=== PATIENT | male | born 1945 | race Caucasian/White ===

== ENCOUNTER 2016-08-21 08:33 | Inpatient (IN) | payer OTHER, BC ==
[2016-08-21] MEDS ORDERED: ALBUTEROL SO4 2.5/IPRATROPIUM 0.5 INH SOL 3 ML VIAL.NEB. NEB ONE ×2 (08:44→08:48)
[2016-08-21] MEDS ORDERED: ONDANSETRON 4 MG TABLET PO ONE (08:44)
[2016-08-21] MEDS ORDERED: ONDANSETRON *ODT* 4 MG TABLET ONE (08:48)
--- NOTE | 2016-08-21 08:54 | PDOC ---
History of Present Illness - General Chief Complaint: Shortness of Breath Stated Complaint: SOB,NAUSEA Time Seen by Provider: 08/21/16 08:39 History Source: Patient Exam Limitations: No Limitations - History of Present Illness Initial Comments: 08/21/16 08:49 71 y/o male with nausea for 3 days, no vomiting or diarrhea. Denies back or abdominal pain. Able to eat, but feels like he cannot burp. Always SOB. Denies chest pain, arm pain or neck pain. No fever or chills. No traveling or sick contact. Severity: mild Associated Symptoms: reports: nausea/vomiting, shortness of breath. denies: chest pain, cough, fever/chills, loss of appetite Past History - Past Medical History Allergies/Adverse Reactions: Allergies Allergy/AdvReac Type Severity Reaction Status Date / Time No Known Allergies Allergy Verified 03/06/16 13:33 Home Medications: Ambulatory Orders Clopidogrel Bisulfate [Plavix -] 75 mg PO DAILY 01/18/13 Aspirin [ASA -] 81 mg PO DAILY 04/29/14 Escitalopram Oxalate [Lexapro -] 40 mg PO DAILY 04/29/14 Lisinopril [Prinivil] 10 mg PO DAILY 04/29/14 Alprazolam [Xanax] 1 mg PO BID 11/19/14 Bupropion HCl [Wellbutrin Xl -] 300 mg PO DAILY 06/14/15 Fenofibrate Nanocrystallized [Tricor] 145 mg PO DAILY 06/14/15 Risperidone 2 mg PO DAILY 11/24/15 Zolpidem Tartrate [Ambien] 10 mg PO HS 11/25/15 Acetaminophen [Tylenol .Regular Strength -] 650 mg PO Q4H PRN #0 tablet Anemia: No Asthma: No Cardiac Disorders: Yes (cardiac [id number], history of OH 2005) CVA: No COPD: Yes CHF: No Dementia: (FORGETFUL) Diabetes: No GI Disorders: Yes (HEARTBURN) Disorders: No HTN: Yes Hypercholesterolemia: Yes Liver Disease: No Psychiatric Problems: Yes (ANXIETY DEPRESSION) Seizures: No Thyroid Disease: No - Surgical History Abdominal Surgery: No Appendectomy: No Cardiac Surgery: Yes (cardiac stent 2005) Cholecystectomy: No Lung Surgery: No Neurologic Surgery: No Orthopedic Surgery: No - Psycho/Social/Smoking Cessation Hx Anxiety: No Suicidal Ideation: No Smoking Status: No Smoking History: Never smoked Have you smoked in the past 12 months: No Number of Cigarettes Smoked Daily: 0 If you are a former smoker, when did you quit?: 2005 Information on smoking cessation initiated: No Hx Alcohol Use: No Drug/Substance Use Hx: No Substance Use Type: None Hx Substance Use Treatment: Yes Review of Systems - Review of Systems Able to Perform ROS?: Yes Is the patient limited [place] proficient: No Constitutional: No: Chills, Diaphoresis, Fever Respiratory: Yes: Shortness of Breath. No: Cough, Orthopnea Cardiac (ROS): No: Chest Pain ABD/GI: Yes: Nausea. No: Diarrhea, Vomiting Musculoskeletal: No: Joint Pain Integumentary: No: Bruising Neurological: No: Headache All Other Systems: Reviewed and Negative *Physical Exam - Vital Signs Last Vital Signs Temp Pulse Resp BP Pulse Ox 97.6 F 63 20 165/77 97 08/21/16 08:33 08/21/16 08:33 08/21/16 08:33 08/21/16 08:33 08/21/16 08:33 - Physical Exam General Appearance: Yes: Nourished, Appropriately Dressed. No: Apparent Distress HEENT: positive: EOMI, CHARAN, Normal ENT Inspection, Other (tardive dyskensia) Neck: positive: Trachea midline, Rigid, Supple Respiratory/Chest: negative: Chest Tender, Lungs Clear (decreaed BS b/l no wheezing), Normal Breath Sounds, Respiratory Distress Cardiovascular: positive: Regular Rhythm, Regular Rate, S1, S2 Vascular Pulses: Femoral (R): 4+, Femoral (L): 4+, Carotid (R): 4+, Carotid (L) : 4+, Dorsalis-Pedis (R): 4+, Doralis-Pedis (L): 4+ Gastrointestinal/Abdominal: positive: Normal Bowel Sounds, Flat, Soft, Other (+ BS, soft non tender no RLQ or LLQ tenderness no RUQ or LUQ tenderness, no epigatric tenderness). negative: Tender, Organomegaly, Pulsatile Mass, Hepatomegaly, Spleenomegaly Lymphatic: negative: Adenopathy, Tenderness, Other Musculoskeletal: positive: Normal Inspection. negative: CVA Tenderness Extremity: positive: Normal Capillary Refill, Normal Inspection, Normal Range of Motion Integumentary: positive: Normal Color, Dry, Warm Neurologic: positive: online health and fitness coach II-XII NML intact, Fully Oriented, Alert, Normal Mood/ Affect, Normal Response, Motor Strength 5/5 Heart Score/ECG Review - ECG Intrepretation Rhythm: Regular Rhythm Comment:: 08/21/16 08:57 sinus bradycardia 58 - [place]: Left [place] Deviation ED Treatment Course - LABORATORY CBC & Chemistry Diagram: 08/21/16 09:15 08/21/16 09:15 - RADIOLOGY Radiology Studies Ordered: Category Date Time Status CHEST PA & LAT [RAD] Stat Radiology 08/21/16 08:44 Ordered 08/21/16 10:06 Pt with a sodium of 120, will need to be admitted Pt is in agreement with plan. CXR NAD, tortuous aorta 08/21/16 10:21 Spoke with Bettye, will admit to Dr. Vinson Pt in agreement with plan *DC/Admit/Observation/Transfer Diagnosis at time of Disposition: Hyponatremia - Discharge Dispostion Admit: Yes
[2016-08-21 09:29] LABS: BASOPHIL 0.4 % (0-2.0); EOSINOPHIL 1.2 % (0-4.5); MCHC 34.5 g/dl (32.0-35.9); MEAN CELL VOLUME 92.8 fl (80-96); NEUTROPHILS 81.1 % (42.8-82.8); PLATELET COUNT 423 K/MM3 (134-434); RDW 12.2 % (11.9-15.9); WHITE BLOOD COUNT 8.6 K/mm3 (4.0-10.0)
[2016-08-21 09:54] LABS: ALBUMIN 4.1 g/dl (3.5-5.0); ALK PHOS 72 U/L (32-92); ANION GAP 7 (8-16); CO2 23 mmol/L (22-28); CREATININE 1.1 mg/dl (0.6-1.3); GLUCOSE,RANDOM 107 mg/dl (74-106); SGOT/AST 42 U/L (10-42); SGPT/ALT 23 U/L (10-40); TOT PROT 6.7 g/dl (6.4-8.3)
[2016-08-21 10:13] LABS: CPK(DFH) 1645 IU/L (38-174); TROPONIN I (DFP) < 0.03 ng/ml (0.03-0.50)
[2016-08-21] MEDS ORDERED: SODIUM CHLORIDE 1,000 ML IV SCH ×2 (10:15→10:30)
[2016-08-21 10:17] LABS: CK MB 14.1 ng/ml (0.3-4.0)
[2016-08-21] MEDS ORDERED: ACETAMINOPHEN 325 MG TABLET (FP) PO PRN (10:26)
--- NOTE | 2016-08-21 10:26 | HP ---
CHIEF COMPLAINT: Nausea PCP: Dr. Hogan HISTORY OF PRESENT ILLNESS: This is a 71 year old male with a history of HTN, CAD s/p stent x 1 approx 10 yrs ago, and anxiety/depression who presented to the ED today complaining of three days of nausea and "dry heaving" without vomiting or diarrhea. He denies fevers/chills. He has had POWELL for several years and this is unchanged. He denies chest pain. He does report that his PO intake has been very poor ("a little water" every day, no food). He is not on any diuretics and none of his medications are new to him. He has been admitted for hyponatremia in the past in similar clinical context and improved with hydration. 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 Smoking: Never smoker Alcohol: 1 can beer/weekly (although prior notes suggest EtOH abuse?) Drugs: None Family History: Patient is not able to recall any significant medical problems Allergies No Known Allergies Allergy (Verified 03/06/16 13:33) HOME MEDICATIONS: Home Medications Medication Instructions Recorded Clopidogrel Bisulfate [Plavix -] 75 mg PO DAILY 01/18/13 Aspirin [ASA -] 81 mg PO DAILY 04/29/14 Escitalopram Oxalate [Lexapro -] 40 mg PO DAILY 04/29/14 Lisinopril [Prinivil] 10 mg PO DAILY 04/29/14 Alprazolam [Xanax] 1 mg PO BID 11/19/14 Bupropion HCl [Wellbutrin Xl -] 300 mg PO DAILY 06/14/15 Fenofibrate Nanocrystallized 145 mg PO DAILY 06/14/15 [Tricor] Risperidone 2 mg PO DAILY 11/24/15 Zolpidem Tartrate [Ambien] 10 mg PO HS 11/25/15 Acetaminophen [Tylenol .Regular 650 mg PO Q4H PRN #0 tablet 03/07/16 Strength -] REVIEW OF SYSTEMS CONSTITUTIONAL: Generalized weakness, malaise, loss of appetite Absent: fever, chills, diaphoresis, weight change HEENT: Absent: rhinorrhea, nasal congestion, throat pain, throat swelling, difficulty swallowing, mouth swelling, ear pain, eye pain, visual changes CARDIOVASCULAR: Absent: chest pain, syncope, palpitations, irregular heart rate, lightheadedness , peripheral edema RESPIRATORY: POWELL, stable x several years Absent: cough, shortness of breath, orthopnea, wheezing, stridor, hemoptysis GASTROINTESTINAL: Nausea Absent: abdominal pain, abdominal distension, vomiting, diarrhea, constipation, melena, hematochezia GENITOURINARY: Absent: dysuria, frequency, urgency, hesitancy, hematuria, flank pain, genital pain MUSCULOSKELETAL: Absent: myalgia, arthralgia, joint swelling, back pain, neck pain SKIN: Absent: rash, itching, pallor HEMATOLOGIC/IMMUNOLOGIC: Absent: easy bleeding, easy bruising, lymphadenopathy, frequent infections ENDOCRINE: Absent: unexplained weight gain, unexplained weight loss, heat intolerance, cold intolerance NEUROLOGIC: Absent: headache, focal weakness or paresthesias, dizziness, unsteady gait, seizure, mental status changes, bladder or bowel incontinence PSYCHIATRIC: Anxiety/depression Absent: suicidal or homicidal ideation, hallucinations. PHYSICAL EXAMINATION Vital Signs - 24 hr 08/21/16 08:33 Temperature 97.6 F Pulse Rate 63 Respiratory 20 Rate Blood Pressure 165/77 O2 Sat by Pulse 97 Oximetry (%) GENERAL: Awake, alert, and fully oriented, in no acute distress. HEAD: Normal with no signs of trauma. EYES: Pupils equal, round and reactive to light, extraocular movements intact, sclera anicteric, conjunctiva clear. No lid lag. EARS, NOSE, THROAT: Ears normal, nares patent, oropharynx clear without exudates. Moist mucous membranes. NECK: Normal range of motion, supple without lymphadenopathy, JVD, or masses. LUNGS: Breath sounds equal, clear to auscultation bilaterally. No wheezes, and no crackles. No accessory muscle use. HEART: Regular rate and rhythm, normal S1 and S2 without murmur, rub or gallop. ABDOMEN: Soft, nontender, not distended, normoactive bowel sounds, no guarding, no rebound, no masses. No hepatomegaly or splenomegaly. MUSCULOSKELETAL: Normal range of motion at all joints. No bony deformities or tenderness. No CVA tenderness. UPPER EXTREMITIES: 2+ pulses, warm, well-perfused. No cyanosis. No clubbing. No peripheral edema. LOWER EXTREMITIES: 2+ pulses, warm, well-perfused. No calf tenderness. No peripheral edema. NEUROLOGICAL: Tardive dyskinesia. Cranial nerves II-XII intact. Normal speech. Normal gait. PSYCHIATRIC: Cooperative. Good eye contact. Appropriate mood and affect. SKIN: Warm, dry, normal turgor, no rashes or lesions noted, normal capillary refill. Laboratory Results - last 24 hr 08/21/16 08/21/16 08/21/16 09:15 09:15 09:15 WBC 8.6 D RBC 4.17 Hgb 13.3 Hct 38.7 MCV 92.8 MCHC 34.5 RDW 12.2 Plt Count 423 D MPV 7.0 L D Neutrophils % 81.1 Lymphocytes % 9.8 D Monocytes % 7.5 Eosinophils % 1.2 Basophils % 0.4 Sodium 120 L* D Potassium 4.7 Chloride 90 L D Carbon Dioxide 23 Anion Gap 7 L BUN 14 D Creatinine 1.1 Creat Clearance w eGFR > 60 Random Glucose 107 H Calcium 9.0 AST 42 D ALT 23 D Alkaline Phosphatase 72 Creatine Kinase 1645 H D CK-MB (CK-2) Cancelled 14.1 H CK-MB (CK-2) Rel Index 0.9 Troponin I < 0.03 L Total Protein 6.7 Albumin 4.1 ASSESSMENT/PLAN: 71 year old male with hyponatremia. Problem List - Problem (1) Hyponatremia Assessment/Plan: -Suspect hypovolemic secondary to poor PO intake -Send serum osmolality, urine sodium -Send BNP, TSH -NS 83 mLs/hr, repeat BMP 14:00 -Renal consultation requested Code(s): E87.1 - HYPO-OSMOLALITY AND HYPONATREMIA (2) Hypertension Assessment/Plan: -BPs slightly above goal -Continue home Lisinopril, monitor Code(s): I10 - ESSENTIAL (PRIMARY) HYPERTENSION (3) CAD (coronary artery disease) Assessment/Plan: -No active issues -Continue ASA Code(s): I25.10 - ATHSCL HEART DISEASE OF [place] CORONARY ARTERY W/O ANG PCTRS (4) Elevated CPK Assessment/Plan: -Unclear etiology -Hold Tricor for now -Hydration -Follow Code(s): R74.8 - ABNORMAL LEVELS OF OTHER SERUM ENZYMES (5) Nausea Assessment/Plan: -With abdominal discomfort -Zofran prn -Pepcid bid -Pepto-Bismol x 1 dose now Code(s): R11.0 - NAUSEA (6) DVT prophylaxis Assessment/Plan: -Ambulation -Lovenox ADDENDUM 16:15: Repeat sodium 118. Discussed with Dr. Murphy; continue saline for now. Will send 20:00 BMP, night team to followup. Code(s): SOU9367 - Visit type - Emergency Visit Emergency Visit: Yes ED Registration Date: 08/21/16 Care time: The patient presented to the Emergency Department on the above date and was hospitalized for further evaluation of their emergent condition. - New Patient This patient is new to me today: Yes Date on this admission: 08/21/16 - Critical Care Critical Care patient: No
[2016-08-21 10:40] LABS: BILIRUBIN,TOTAL 0.6 mg/dl (0.2-1.0)
[2016-08-21] MEDS: ONDANSETRON 4 MG/2 ML VIAL IVPB PRN ×2 (10:56→20:41)
[2016-08-21 12:00] LABS: URINE APPEARANCE Clear; URINE BILIRUBIN Negative (NEGATIVE); URINE GLUCOSE (UA) Negative (NEGATIVE); URINE KETONE Negative (NEGATIVE); URINE LEUK ESTERASE Negative (NEGATIVE); URINE NITRITE Negative (NEGATIVE); URINE PROTEIN Negative (NEGATIVE); URINE UROBILINOGEN 0.2 E.U/dl (0.2-1.0)
[2016-08-21 12:02] LABS: URINE BLOOD TRACE (NEGATIVE); URINE COLOR YELLOW; URINE RBC 0-3 /hpf (0-3); URINE WBC 0-3 (3-5)
[2016-08-21 12:03] LABS: URINE BACTERIA FEW /hpf (NEGATIVE)
[2016-08-21 12:13] LABS: THYROID STIMULATING HORMONE 1.36 uIU/ml (0.358-3.74)
--- NOTE | 2016-08-21 12:23 | CONSULT ---
Consult - text type - Consultation Consultation Note: Renal Consult for Hyponatremia 71 year old Gentleman with hx of Depression/Anxiety, CAD, Hyponatremia presented with Nausea and Na of 120. Home Medications Medication Instructions Recorded Clopidogrel Bisulfate [Plavix -] 75 mg PO DAILY 01/18/13 Aspirin [ASA -] 81 mg PO DAILY 04/29/14 Escitalopram Oxalate [Lexapro -] 40 mg PO DAILY 04/29/14 Lisinopril [Prinivil] 10 mg PO DAILY 04/29/14 Alprazolam [Xanax] 1 mg PO BID 11/19/14 Bupropion HCl [Wellbutrin Xl -] 300 mg PO DAILY 06/14/15 Fenofibrate Nanocrystallized 145 mg PO DAILY 06/14/15 [Tricor] Risperidone 2 mg PO DAILY 11/24/15 Zolpidem Tartrate [Ambien] 10 mg PO HS 11/25/15 Acetaminophen [Tylenol .Regular 650 mg PO Q4H PRN #0 tablet 03/07/16 Strength -] Vital Signs Temperature 97.6 F 08/21/16 08:33 Pulse Rate 56 L 08/21/16 10:30 Respiratory Rate 23 08/21/16 10:30 Blood Pressure 144/103 08/21/16 10:30 O2 Sat by Pulse Oximetry (%) 93 L 08/21/16 10:30 Intake & Output 08/18/16 08/19/16 08/20/16 08/21/16 23:59 23:59 23:59 23:59 Weight 205 lb CBC, BMP 08/21/16 09:15 08/21/16 09:15 Current Medications Acetaminophen (Tylenol -) 650 mg PO Q4H PRN PRN Reason: FEVER OR PAIN Aspirin (Asa -) 81 mg PO DAILY [facility] Bupropion HCl (Wellbutrin Xl -) 300 mg PO DAILY [facility] Clopidogrel Bisulfate (Plavix -) 75 mg PO DAILY [facility] Docusate Sodium (Colace -) 100 mg PO TID [facility] Enoxaparin Sodium (Lovenox -) 40 mg SQ DAILY [facility] Escitalopram Oxalate (Lexapro -) 40 mg PO DAILY [facility] Sodium Chloride (Normal Saline -) 1,000 mls @ 125 mls/hr IV ASDIR FIDEL Last Admin: 08/21/16 10:15 Dose: 125 mls/hr Sodium Chloride (Normal Saline -) 1,000 mls @ 83 mls/hr IV ASDIR FIDEL Last Admin: 08/21/16 10:55 Dose: 83 mls/hr Lisinopril (Prinivil) 10 mg PO DAILY FIDEL Non-Formulary Medication (Alprazolam [Xanax]) 1 mg PO BID FIDEL Non-Formulary Medication (Zolpidem Tartrate [Ambien]) 10 mg PO HS FIDEL Ondansetron HCl (Zofran Injection) 4 mg IVPB Q6H PRN PRN Reason: NAUSEA Last Admin: 08/21/16 10:56 Dose: 4 mg Risperidone (Risperdal -) 2 mg PO DAILY FIDEL A/P #Acute Hyponatremia Etiology appears to be hypovolemic in setting of poor intake and Nausea CHeck Urine Na, OSM, serum OSM, Uric acid, Cortisol, TSH agree with isotonic saline for now Trend Na Q6h Goal of correction ~10 in 24 hours Will follow Thank you Full consult to follow Pavan Murphy DO
[2016-08-21] MEDS ORDERED: risperiDONE 2 MG TABLET PO SCH (12:35)
[2016-08-21] MEDS ORDERED: BISMUTH SUBSALICYLATE 524 MG/30 ML UD PO ONE (12:49)
[2016-08-21 12:55] VITALS: BMI 38.7
[2016-08-21] MEDS: CLOPIDOGREL BISULFATE 75 MG TABLET (FP) PO SCH (13:26)
[2016-08-21] MEDS: LISINOPRIL 10 MG TABLET (FP) PO SCH (13:26)
[2016-08-21] MEDS: FAMOTIDINE 20 MG/50 ML IVPB 50 ML IVPB SCH ×2 (13:27→21:48)
[2016-08-21] MEDS: DOCUSATE SODIUM 100 MG CAPSULE (FP) PO SCH ×2 (14:00→21:48)
[2016-08-21 14:07] LABS: ANION GAP 9 (8-16); CALCIUM 9.3 mg/dl (8.4-10.2); CO2 20 mmol/L (22-28); CREATININE 1.1 mg/dl (0.6-1.3); GLUCOSE,RANDOM 106 mg/dl (74-106)
[2016-08-21 14:13] LABS: CPK(DFH) 1226 IU/L (38-174)
[2016-08-21 14:20] LABS: TROPONIN I (DFP) < 0.03 ng/ml (0.03-0.50)
[2016-08-21 14:26] LABS: CK MB 12.8 ng/ml (0.3-4.0)
[2016-08-21 20:34] LABS: CALCIUM 8.4 mg/dl (8.4-10.2); COCKROFT - GAULT 96.19; CREATININE 1.1 mg/dl (0.6-1.3)
[2016-08-21] MEDS: ALPRAZolam 0.25 MG TABLET PO SCH (21:48)
[2016-08-21] MEDS: ZOLPIDEM TARTRATE 5 MG TABLET PO PRN (21:48)
[2016-08-21] MEDS ORDERED: PT OWN MED DRAWER 7, Y5N ONE (21:50)
[2016-08-21] MEDS: BUDESONIDE/FORMETEROL FUMARATE 160/4.5 mcg INHALER IH SCH (21:52)
[2016-08-21 23:03] LABS: CALCIUM 8.5 mg/dl (8.4-10.2); COCKROFT - GAULT 96.19; CREATININE 1.1 mg/dl (0.6-1.3)
[2016-08-22] MEDS: DOCUSATE SODIUM 100 MG CAPSULE (FP) PO SCH ×4 (06:25→21:07)
[2016-08-22 08:52] LABS: MAGNESIUM 1.8 mg/dL (1.8-2.4); PHOSPHOROUS 3.2 mg/dl (2.5-4.6)
[2016-08-22 08:53] LABS: CPK(DFH) 877 IU/L (38-174)
--- NOTE | 2016-08-22 08:59 | PN ---
[id number]:his is a 71 year old male with a history of HTN, CAD s/p stent x 1 (2006), and anxiety/depression. patient was admitted from the Emergency department for hyponatremia Vital Signs Period Temp Pulse Resp BP Sys/Gonzales Pulse Ox Last 24 Hr 97.0 F-98.6 F 61-78 16-20 112-133/66-87 93-95 GENERAL: The patient is awake, alert, and fully oriented, in no acute distress. HEAD: Normal with no signs of trauma. EYES: PERRL, extraocular movements intact, sclera anicteric, conjunctiva clear. No ptosis. ENT: Ears normal, nares patent, oropharynx clear without exudates, moist mucous membranes. NECK: Trachea midline, full range of motion, supple. LUNGS: Breath sounds equal, clear to auscultation bilaterally, no wheezes, no crackles, no accessory muscle use. HEART: Regular rate and rhythm, S1, S2 without murmur, rub or gallop. ABDOMEN: Soft, nontender, nondistended, normoactive bowel sounds, no guarding, no rebound, no hepatosplenomegaly, no masses. EXTREMITIES: 2+ pulses, warm, well-perfused, no edema. NEUROLOGICAL: tardive dysknesisa, Cranial nerves II through XII grossly intact. Normal speech, gait not observed. PSYCH: Normal mood, normal affect. SKIN: Warm, dry, normal turgor, no rashes or lesions noted Laboratory Results - last 24 hr 08/21/16 08/21/16 08/21/16 11:38 11:39 12:30 Sodium Potassium Chloride Carbon Dioxide Anion Gap BUN Creatinine Random Glucose Serum Osmolality Cancelled Uric Acid 5.7 Calcium Creatine Kinase CK-MB (CK-2) Troponin I Urine Color Yellow Urine Appearance Clear Urine pH 7.0 Ur Specific [place] 1.010 Urine Protein Negative Urine Glucose (UA) Negative Urine Ketones Negative Urine Blood Trace H Urine Nitrite Negative Urine Bilirubin Negative Urine Urobilinogen 0.2 e.u/dl Ur Leukocyte Esterase Negative Urine RBC 0-3 Urine WBC 0-3 Ur Epithelial Cells Few Urine Bacteria Few Urine Osmolality 292 L CBC WBC 7.6 K/mm3 (4.0-10.0) 08/22/16 08:00 RBC 4.10 M/mm3 (4.00-5.60) 08/22/16 08:00 Hgb 13.1 GM/dl (11.7-16.9) 08/22/16 08:00 Hct 38.4 % (35.4-49) 08/22/16 08:00 MCV 93.7 fl (80-96) 08/22/16 08:00 MCHC 34.0 g/dl (32.0-35.9) 08/22/16 08:00 RDW 12.6 % (11.9-15.9) 08/22/16 08:00 Plt Count 417 K/MM3 (134-434) 08/22/16 08:00 MPV 7.6 fl (7.5-11.1) 08/22/16 08:00 Neutrophils % 77.3 % (42.8-82.8) 08/22/16 08:00 Lymphocytes % 11.6 % (8-40) 08/22/16 08:00 Monocytes % 9.1 % (3.8-10.2) 08/22/16 08:00 Eosinophils % 1.9 % (0-4.5) 08/22/16 08:00 Basophils % 0.1 % (0-2.0) 08/22/16 08:00 CMP Sodium 128 mmol/L (136-145) L 08/22/16 08:00 Potassium 4.7 mmol/L (3.5-5.1) 08/22/16 08:00 Chloride 98 mmol/L (98-107) 08/22/16 08:00 Carbon Dioxide 22 mmol/L (22-28) D 08/22/16 08:00 Anion Gap 8 (8-16) 08/22/16 08:00 BUN 11 mg/dl (7-18) 08/22/16 08:00 Creatinine 1.1 mg/dl (0.6-1.3) 08/22/16 08:00 Creat Clearance w eGFR > 60 (>60) 08/21/16 09:15 Random Glucose 98 mg/dl (74-106) 08/22/16 08:00 Serum Osmolality 258 mosm/kg (278-305) L 08/21/16 10:30 Uric Acid 5.7 mg/dl (2.6-7.2) 08/21/16 11:38 Calcium 9.1 mg/dl (8.4-10.2) 08/22/16 08:00 Phosphorus 3.2 mg/dl (2.5-4.6) 08/22/16 08:00 Magnesium 1.8 mg/dL (1.8-2.4) 08/22/16 08:00 Total Bilirubin 0.6 mg/dl (0.2-1.0) D 08/21/16 09:15 AST 42 U/L (10-42) D 08/21/16 09:15 ALT 23 U/L (10-40) D 08/21/16 09:15 Alkaline Phosphatase 72 U/L (32-92) 08/21/16 09:15 Creatine Kinase 877 IU/L (38-174) H D 08/22/16 08:00 Creatine Kinase Index Cancelled 08/22/16 08:00 CK-MB (CK-2) 11.3 ng/ml (0.3-4.0) H 08/22/16 08:00 CK-MB (CK-2) Rel Index 0.9 % (0.0-5.0) 08/21/16 09:15 Troponin I < 0.03 ng/ml (0.03-0.50) L 08/22/16 08:00 B-Natriuretic Peptide 219.28 pg/ml (5-125) H 08/21/16 10:30 Total Protein 6.7 g/dl (6.4-8.3) 08/21/16 09:15 Albumin 4.1 g/dl (3.5-5.0) 08/21/16 09:15 TSH 1.36 uIU/ml (0.358-3.74) 08/21/16 10:30 Active Medications Generic Name Dose Route Start Last Admin Trade Name Freq PRN Reason Stop Dose Admin Acetaminophen 650 mg 08/21/16 10:26 Tylenol - PO Q4H PRN FEVER OR PAIN Al Hydroxide/Mg Hydroxide 30 ml 08/22/16 08:56 Mylanta Oral Suspension - PO Q6H PRN DYSPEPSIA Alprazolam 1 mg 08/21/16 22:00 08/21/16 21:48 Xanax - PO 1 mg BID FIDEL Administration Aspirin 81 mg 08/21/16 12:34 Asa - PO DAILY FIDEL Budesonide/Formoterol Fumarate 1 puff 08/21/16 22:00 08/21/16 21:52 Symbicort 160/4.5mcg - IH 1 puff BID FIDEL Administration Bupropion HCl 300 mg 08/21/16 12:45 08/21/16 13:25 Wellbutrin Xl - PO 300 mg DAILY FIDEL Administration Clopidogrel Bisulfate 75 mg 08/21/16 12:45 08/21/16 13:26 Plavix - PO 75 mg DAILY FIDEL Administration Docusate Sodium 100 mg 08/21/16 14:00 08/22/16 06:27 Colace - PO Not Given TID FIDEL Enoxaparin Sodium 40 mg 08/22/16 10:00 Lovenox - SQ DAILY FIDEL Escitalopram Oxalate 40 mg 08/21/16 12:35 Lexapro - PO DAILY FIDEL Sodium Chloride 1,000 mls @ 83 mls/hr 08/21/16 10:30 08/21/16 10:55 Normal Saline - IV 83 mls/hr ASDIR FIDEL Administration Famotidine/Sodium Chloride 50 mls @ 100 mls/hr 08/21/16 13:00 08/21/16 21:48 Pepcid 20 Mg Premixed Ivpb - IVPB 100 mls/hr BID FIDEL Administration Lisinopril 10 mg 08/21/16 12:45 08/21/16 13:26 Prinivil PO 10 mg DAILY FIDEL Administration Ondansetron HCl 4 mg 08/21/16 10:26 08/21/16 20:41 Zofran Injection IVPB 4 mg Q6H PRN Administration NAUSEA Risperidone 2 mg 08/22/16 10:00 Risperdal - PO DAILY [facility] Zolpidem Tartrate 5 mg 08/21/16 22:00 08/21/16 21:48 Ambien - PO 5 mg HS PRN Administration ASSESSMENT/PLAN: 1) hyponatremia - Likely secondary to poor by mouth intake - Serum sodium ending upward with IV fluids - continue normal saline at 83 mL an hour - Nephrology, Dr. Murphy consulted and followed 2) card hypertension - Blood pressure at goal lisinopril Coronary artery disease - continue asa 3) elevated cpk -continue to hold TriCor CPK trending downward - Repeat CPK in am f/e/n - regular diet - replete lytes prn ppx - lovenox - pepcd - oob - scd dispo: requires inpatient care Visit type - Emergency Visit Emergency Visit: Yes ED Registration Date: 08/21/16 Care time: The patient presented to the Emergency Department on the above date and was hospitalized for further evaluation of their emergent condition. - New Patient This patient is new to me today: Yes Date on this admission: 08/22/16 - Critical Care Critical Care patient: No - Discharge Referral Referred to [facility] Med P.C.: No
[2016-08-22] MEDS: ONDANSETRON 4 MG/2 ML VIAL IVPB PRN (09:01)
--- NOTE | 2016-08-22 09:02 | PN ---
Progress Note (short form) - Note Progress Note: Renal Follow up for Hyponatremia Pt seen and examined at the bedside reports continued nausea but no emesis no vomiting no chest pain or sob no abd pain on IV NS Vital Signs Temperature 98.6 F 08/22/16 06:00 Pulse Rate 62 08/22/16 06:00 Respiratory Rate 16 08/22/16 08:05 Blood Pressure 133/66 08/22/16 06:00 O2 Sat by Pulse Oximetry (%) 95 08/22/16 08:05 Gen: NAD CVS: RRR Lungs: CTA Abd: soft NT/ND Ext: No edema Laboratory Tests 08/22/16 08:00 Sodium Pending Potassium Pending Laboratory Tests 08/21/16 08/21/16 08/21/16 11:38 12:30 13:40 Sodium 118 L* Uric Acid 5.7 Urine Osmolality 292 L 08/21/16 08/21/16 08/22/16 20:00 22:06 08:00 Sodium 126 L 122 L* Pending Uric Acid Urine Osmolality Current Medications Acetaminophen (Tylenol -) 650 mg PO Q4H PRN PRN Reason: FEVER OR PAIN Al Hydroxide/Mg Hydroxide (Mylanta Oral Suspension -) 30 ml PO Q6H PRN PRN Reason: DYSPEPSIA Alprazolam (Xanax -) 1 mg PO BID [facility] Last Admin: 08/21/16 21:48 Dose: 1 mg Aspirin (Asa -) 81 mg PO DAILY [facility] Budesonide/Formoterol Fumarate (Symbicort 160/4.5mcg -) 1 puff IH BID [facility] Last Admin: 08/21/16 21:52 Dose: 1 puff Bupropion HCl (Wellbutrin Xl -) 300 mg PO DAILY [facility] Last Admin: 08/21/16 13:25 Dose: 300 mg Clopidogrel Bisulfate (Plavix -) 75 mg PO DAILY [facility] Last Admin: 08/21/16 13:26 Dose: 75 mg Docusate Sodium (Colace -) 100 mg PO TID [facility] Last Admin: 08/22/16 06:27 Dose: Not Given Enoxaparin Sodium (Lovenox -) 40 mg SQ DAILY [facility] Escitalopram Oxalate (Lexapro -) 40 mg PO DAILY [facility] Sodium Chloride (Normal Saline -) 1,000 mls @ 83 mls/hr IV ASDIR [facility] Last Admin: 08/21/16 10:55 Dose: 83 mls/hr Famotidine/Sodium Chloride (Pepcid 20 Mg Premixed Ivpb -) 50 mls @ 100 mls/hr IVPB BID [facility] Last Admin: 08/21/16 21:48 Dose: 100 mls/hr Lisinopril (Prinivil) 10 mg PO DAILY [facility] Last Admin: 08/21/16 13:26 Dose: 10 mg Ondansetron HCl (Zofran Injection) 4 mg IVPB Q6H PRN PRN Reason: NAUSEA Last Admin: 08/21/16 20:41 Dose: 4 mg Risperidone (Risperdal -) 2 mg PO DAILY [facility] Zolpidem Tartrate (Ambien -) 5 mg PO HS PRN Last Admin: 08/21/16 21:48 Dose: 5 mg A/P 71 year old Gentleman with hx of Depression/Anxiety, CAD, Hyponatremia presented with Nausea and Na of 120. #Acute Hyponatremia Volume Depletion +/- ADH Release in setting of nausea Urine Na not processed, will reorder today Urien OSM elevated URic acid is WNL AM labs pending if Na down trends, will hold IVF and continue just free water restriction and salt tabs Urine studies very important in determining etiology Thank you Monitor Na Q8h for now until pt with steady increase Goal rate of correction is ~10 per 14 hours no indication for 3% saline Thank you Pavan Murphy DO
--- NOTE | 2016-08-22 09:07 | EKG ---
Test Reason : Blood Pressure : / mmHG Vent. Rate : 058 BPM Atrial Rate : 058 BPM P-R Int : 218 ms QRS Dur : 094 ms QT Int : 416 ms P-R-T Axes : 088 -32 032 degrees QTc Int : 408 ms POOR DATA QUALITY, INTERPRETATION MAY BE ADVERSELY AFFECTED SINUS BRADYCARDIA WITH 1ST DEGREE A-V BLOCK LEFT AXIS DEVIATION INFERIOR INFARCT , AGE UNDETERMINED ABNORMAL ECG NO PREVIOUS ECGS AVAILABLE Confirmed by JORDAN EVANS, SONAL ([id number]) on 08/22/2016 9:06:44 AM Referred By: MAKAYLA PATEL Confirmed By:SONAL ORTEGA MD
[2016-08-22] MEDS ORDERED: MAG HYDROX/AL HYDROX/SIMETH 30 ML UNIT-DOSE CUP PO PRN (09:08)
[2016-08-22 09:15] LABS: BASOPHIL 0.1 % (0-2.0); EOSINOPHIL 1.9 % (0-4.5); MCH 31.9 pg (25.7-33.7); MEAN CELL VOLUME 93.7 fl (80-96); MEAN PLT VOLUME 7.6 fl (7.5-11.1); NEUTROPHILS 77.3 % (42.8-82.8); PLATELET COUNT 417 K/MM3 (134-434); RDW 12.6 % (11.9-15.9); WHITE BLOOD COUNT 7.6 K/mm3 (4.0-10.0)
[2016-08-22 09:29] LABS: TROPONIN I (DFP) < 0.03 ng/ml (0.03-0.50)
[2016-08-22 09:32] LABS: CK MB 11.3 ng/ml (0.3-4.0)
[2016-08-22] MEDS ORDERED: PT OWN MED DRAWER 7, Y5N ONE ×2 (09:39→21:04)
[2016-08-22] MEDS: FAMOTIDINE 20 MG/50 ML IVPB 50 ML IVPB SCH ×2 (09:47→21:07)
[2016-08-22] MEDS: ASPIRIN 81 MG CHEWABLE TABLETS PO SCH (09:51)
[2016-08-22] MEDS: ENOXAPARIN NA (PORCINE) 40 MG/0.4 ML DISP.SYRIN SQ SCH (09:51)
[2016-08-22] MEDS: ESCITALOPRAM OXALATE 20 MG TABLET (FP) PO SCH (09:52)
[2016-08-22] MEDS: risperiDONE 1 MG TABLET (FP) PO SCH (09:52)
[2016-08-22] MEDS: CLOPIDOGREL BISULFATE 75 MG TABLET (FP) PO SCH (09:52)
[2016-08-22] MEDS: BUDESONIDE/FORMETEROL FUMARATE 160/4.5 mcg INHALER IH SCH ×2 (09:53→21:07)
[2016-08-22] MEDS: LISINOPRIL 10 MG TABLET (FP) PO SCH (09:53)
[2016-08-22] MEDS: ALPRAZolam 0.25 MG TABLET PO SCH ×2 (09:53→21:07)
[2016-08-22] MEDS ORDERED: ASPIRIN 81 MG CHEWABLE TABLETS PO SCH (10:00)
[2016-08-22] MEDS ORDERED: ESCITALOPRAM OXALATE 20 MG TABLET (FP) PO SCH (10:00)
[2016-08-22] MEDS ORDERED: PATIENT'S OWN MEDICATION (NON-FORMULARY) (Fenofibrate Nanocrystallized [Tricor] 145 MG) PO SCH (10:00)
[2016-08-22] MEDS ORDERED: risperiDONE 2 MG TABLET PO SCH (10:00)
[2016-08-22] MEDS ORDERED: CLOPIDOGREL BISULFATE 75 MG TABLET (FP) PO SCH (10:00)
[2016-08-22] MEDS ORDERED: LISINOPRIL 10 MG TABLET (FP) PO SCH (10:00)
[2016-08-22 10:15] LABS: CALCIUM 9.1 mg/dl (8.4-10.2); COCKROFT - GAULT 80.71; CREATININE 1.1 mg/dl (0.6-1.3)
[2016-08-22] MEDS: ALBUTEROL SO4 2.5/IPRATROPIUM 0.5 INH SOL 3 ML VIAL.NEB. NEB PRN (11:00)
[2016-08-22] MEDS ORDERED: SODIUM CHLORIDE 1,000 ML IV SCH (11:30)
[2016-08-22] MEDS: ZOLPIDEM TARTRATE 5 MG TABLET PO PRN (21:07)
[2016-08-23] MEDS: DOCUSATE SODIUM 100 MG CAPSULE (FP) PO SCH ×3 (06:21→21:36)
[2016-08-23 08:36] LABS: BASOPHIL 0.6 % (0-2.0); EOSINOPHIL 2.6 % (0-4.5); MCH 32.1 pg (25.7-33.7); MCHC 33.8 g/dl (32.0-35.9); MEAN CELL VOLUME 94.8 fl (80-96); MEAN PLT VOLUME 7.3 fl (7.5-11.1); NEUTROPHILS 67.3 % (42.8-82.8); PLATELET COUNT 401 K/MM3 (134-434); RDW 12.7 % (11.9-15.9); WHITE BLOOD COUNT 6.7 K/mm3 (4.0-10.0)
[2016-08-23 08:55] LABS: ALBUMIN 3.9 g/dl (3.5-5.0); ALK PHOS 67 U/L (32-92); ANION GAP 9 (8-16); BILIRUBIN,TOTAL 0.4 mg/dl (0.2-1.0); CALCIUM 9.6 mg/dl (8.4-10.2); CO2 26 mmol/L (22-28); CREATININE 1.5 mg/dl (0.6-1.3); GLUCOSE,RANDOM 113 mg/dl (74-106); PHOSPHOROUS 3.9 mg/dl (2.5-4.6); SGOT/AST 29 U/L (10-42); SGPT/ALT 20 U/L (10-40); TOT PROT 6.3 g/dl (6.4-8.3)
--- NOTE | 2016-08-23 09:20 | PN ---
Progress Note (short form) - Note Progress Note: Renal Follow up for Hyponatremia Pt seen and examined at the bedside feels better today no further N/V no sob, chest pain, abd pain Vital Signs Temperature 99.2 F 08/23/16 06:00 Pulse Rate 54 L 08/23/16 06:00 Respiratory Rate 18 08/23/16 06:00 Blood Pressure 152/79 08/23/16 06:00 O2 Sat by Pulse Oximetry (%) 92 L 08/22/16 23:03 Gen: NAD CVS: RRR Lungs: CTA Abd: soft NT/ND Ext: No edema CBC, BMP 08/23/16 07:00 08/23/16 07:00 Current Medications Acetaminophen (Tylenol -) 650 mg PO Q4H PRN PRN Reason: FEVER OR PAIN Al Hydroxide/Mg Hydroxide (Mylanta Oral Suspension -) 30 ml PO Q6H PRN PRN Reason: DYSPEPSIA Albuterol/Ipratropium (Duoneb -) 1 amp NEB Q6H PRN PRN Reason: SHORTNESS OF BREATH Last Admin: 08/22/16 11:00 Dose: 1 amp Alprazolam (Xanax -) 1 mg PO BID [facility] Last Admin: 08/22/16 21:07 Dose: 1 mg Aspirin (Asa -) 81 mg PO DAILY [facility] Last Admin: 08/22/16 09:51 Dose: 81 mg Budesonide/Formoterol Fumarate (Symbicort 160/4.5mcg -) 1 puff IH BID [facility] Last Admin: 08/22/16 21:07 Dose: 1 puff Bupropion HCl (Wellbutrin Xl -) 300 mg PO DAILY [facility] Last Admin: 08/22/16 09:53 Dose: 300 mg Clopidogrel Bisulfate (Plavix -) 75 mg PO DAILY [facility] Last Admin: 08/22/16 09:52 Dose: 75 mg Docusate Sodium (Colace -) 100 mg PO TID [facility] Last Admin: 08/23/16 06:21 Dose: 100 mg Enoxaparin Sodium (Lovenox -) 40 mg SQ DAILY [facility] Last Admin: 08/22/16 09:51 Dose: 40 mg Escitalopram Oxalate (Lexapro -) 40 mg PO DAILY [facility] Last Admin: 08/22/16 09:52 Dose: 40 mg Famotidine/Sodium Chloride (Pepcid 20 Mg Premixed Ivpb -) 50 mls @ 100 mls/hr IVPB BID [facility] Last Admin: 08/22/16 21:07 Dose: 100 mls/hr Sodium Chloride (Normal Saline -) 1,000 mls @ 60 mls/hr IV ASDIR [facility] Last Admin: 08/22/16 14:33 Dose: Not Given Lisinopril (Prinivil) 10 mg PO DAILY [facility] Last Admin: 08/22/16 09:53 Dose: 10 mg Ondansetron HCl (Zofran Injection) 4 mg IVPB Q6H PRN PRN Reason: NAUSEA Last Admin: 08/22/16 09:01 Dose: 4 mg Risperidone (Risperdal -) 2 mg PO DAILY [facility] Last Admin: 08/22/16 09:52 Dose: 2 mg Zolpidem Tartrate (Ambien -) 5 mg PO HS PRN Last Admin: 08/22/16 21:07 Dose: 5 mg A/P 71 year old Gentleman with hx of Depression/Anxiety, CAD, Hyponatremia presented with Nausea and Na of 120. #Acute Hyponatremia Volume Depletion +/- ADH Release in setting of nausea Serum Na improving with isotonic saline continue NS at 75cc per hour for additional 24 hours #Acute Kidney Injury Cr today is 1.5, was 1.1 yesterday BUN also uptrending etiology unclear (no NSAIDs given, no contrast exposure) Has episode of relative hypotension (90s/40's) last night hold ACEi today Repeat BMP this evening continue IVF Thank you Pavan Murphy DO
[2016-08-23] MEDS: SODIUM CHLORIDE 1,000 ML IV SCH (09:30)
[2016-08-23] MEDS: ESCITALOPRAM OXALATE 20 MG TABLET (FP) PO SCH (10:00)
[2016-08-23] MEDS: ALPRAZolam 0.25 MG TABLET PO SCH ×2 (10:02→21:36)
[2016-08-23] MEDS: ASPIRIN 81 MG CHEWABLE TABLETS PO SCH (10:03)
[2016-08-23] MEDS: risperiDONE 1 MG TABLET (FP) PO SCH (10:03)
[2016-08-23] MEDS: ENOXAPARIN NA (PORCINE) 40 MG/0.4 ML DISP.SYRIN SQ SCH (10:04)
[2016-08-23] MEDS: FAMOTIDINE 20 MG/50 ML IVPB 50 ML IVPB SCH ×2 (10:04→21:37)
[2016-08-23] MEDS: CLOPIDOGREL BISULFATE 75 MG TABLET (FP) PO SCH (10:04)
[2016-08-23] MEDS ORDERED: PT OWN MED DRAWER 7, Y5N ONE ×2 (10:08→21:33)
[2016-08-23] MEDS: BUDESONIDE/FORMETEROL FUMARATE 160/4.5 mcg INHALER IH SCH ×2 (10:09→21:37)
[2016-08-23] MEDS: ALBUTEROL SO4 2.5/IPRATROPIUM 0.5 INH SOL 3 ML VIAL.NEB. NEB PRN (10:17)
--- NOTE | 2016-08-23 10:34 | PN ---
[id number] OBJECTIVE: patient is a 71 year old male with a history of HTN, CAD s/p stent x 1 (2006), and anxiety/depression. patient was admitted from the Emergency department for hyponatremia, Vital Signs Period Temp Pulse Resp BP Sys/Gonzales Pulse Ox Last 24 Hr 98.7 F-99.2 F 54-83 18-20 97-152/43-79 91-92 GENERAL: The patient is awake, alert, and fully oriented, in no acute distress. HEAD: Normal with no signs of trauma. EYES: PERRL, extraocular movements intact, sclera anicteric, conjunctiva clear. No ptosis. ENT: Ears normal, nares patent, oropharynx clear without exudates, moist mucous membranes. NECK: Trachea midline, full range of motion, supple. LUNGS: Breath sounds equal, clear to auscultation bilaterally, no wheezes, no crackles, no accessory muscle use. HEART: Regular rate and rhythm, S1, S2 without murmur, rub or gallop. ABDOMEN: Soft, nontender, nondistended, normoactive bowel sounds, no guarding, no rebound, no hepatosplenomegaly, no masses. EXTREMITIES: 2+ pulses, warm, well-perfused, no edema. NEUROLOGICAL: tardive dysknesia, Cranial nerves II through XII grossly intact. Normal speech, gait not observed. PSYCH: Normal mood, normal affect. SKIN: Warm, dry, normal turgor, no rashes or lesions noted Laboratory Results - last 24 hr 08/22/16 08/22/16 08/23/16 14:06 20:45 07:00 WBC 6.7 RBC 4.12 Hgb 13.2 Hct 39.0 MCV 94.8 MCHC 33.8 RDW 12.7 Plt Count 401 MPV 7.3 L Neutrophils % 67.3 Lymphocytes % 20.1 D Monocytes % 9.4 Eosinophils % 2.6 Basophils % 0.6 D Sodium 129 L Potassium Chloride Carbon Dioxide Anion Gap BUN Creatinine Creat Clearance w eGFR Random Glucose Calcium Phosphorus Magnesium Total Bilirubin AST ALT Alkaline Phosphatase Creatine Kinase Total Protein Albumin Ur Random Sodium 21 08/23/16 08/23/16 07:00 07:00 WBC RBC Hgb Hct MCV MCHC RDW Plt Count MPV Neutrophils % Lymphocytes % Monocytes % Eosinophils % Basophils % Sodium 132 L Potassium 4.9 Chloride 97 L Carbon Dioxide 26 Anion Gap 9 BUN 19 H D Creatinine 1.5 H D Creat Clearance w eGFR 46.00 Random Glucose 113 H Calcium 9.6 Phosphorus 3.9 D Magnesium 2.0 Total Bilirubin 0.4 D AST 29 D ALT 20 Alkaline Phosphatase 67 Creatine Kinase 411 H Total Protein 6.3 L Albumin 3.9 Ur Random Sodium Active Medications Generic Name Dose Route Start Last Admin Trade Name Freq PRN Reason Stop Dose Admin Acetaminophen 650 mg 08/21/16 10:26 Tylenol - PO Q4H PRN FEVER OR PAIN Al Hydroxide/Mg Hydroxide 30 ml 08/22/16 09:08 Mylanta Oral Suspension - PO Q6H PRN DYSPEPSIA Albuterol/Ipratropium 1 amp 08/22/16 10:08 08/23/16 10:17 Duoneb - NEB 1 amp Q6H PRN Administration SHORTNESS OF BREATH Alprazolam 1 mg 08/21/16 22:00 08/23/16 10:02 Xanax - PO 1 mg BID [facility] Administration Aspirin 81 mg 08/21/16 12:34 08/23/16 10:03 Asa - PO 81 mg DAILY [facility] Administration Budesonide/Formoterol Fumarate 1 puff 08/21/16 22:00 08/23/16 10:09 Symbicort 160/4.5mcg - IH 1 puff BID [facility] Administration Bupropion HCl 300 mg 08/21/16 12:45 08/23/16 10:01 Wellbutrin Xl - PO 300 mg DAILY [facility] Administration Clopidogrel Bisulfate 75 mg 08/21/16 12:45 08/23/16 10:04 Plavix - PO 75 mg DAILY [facility] Administration Docusate Sodium 100 mg 08/21/16 14:00 08/23/16 06:21 Colace - PO 100 mg TID [facility] Administration Enoxaparin Sodium 40 mg 08/22/16 10:00 08/23/16 10:04 Lovenox - SQ 40 mg DAILY [facility] Administration Escitalopram Oxalate 40 mg 08/21/16 12:35 08/23/16 10:00 Lexapro - PO 40 mg DAILY [facility] Administration Famotidine/Sodium Chloride 50 mls @ 100 mls/hr 08/21/16 13:00 08/23/16 10:04 Pepcid 20 Mg Premixed Ivpb - IVPB 100 mls/hr BID [facility] Administration Sodium Chloride 1,000 mls @ 75 mls/hr 08/23/16 09:21 Normal Saline - IV ASDIR [facility] Lisinopril 10 mg 08/21/16 12:45 08/22/16 09:53 Prinivil PO 10 mg DAILY [facility] Administration Ondansetron HCl 4 mg 08/21/16 10:26 08/22/16 09:01 Zofran Injection IVPB 4 mg Q6H PRN Administration NAUSEA Risperidone 2 mg 08/22/16 10:00 08/23/16 10:03 Risperdal - PO 2 mg DAILY [facility] Administration Zolpidem Tartrate 5 mg 08/21/16 22:00 08/22/16 21:07 Ambien - PO 5 mg HS PRN Administration ASSESSMENT/PLAN: 1) hyponatremia - Likely secondary to poor by mouth intake and ADH release from nausea - Serum sodium trending upward, continue NS @ 75ml/hr - Nephrology, Dr. Murphy consulted and followed 2) card hypertension - Blood pressure at goal, hold lisinopril due to SUDARSHAN Coronary artery disease - continue asa 3) elevated cpk -continue to hold [employer] CPK trending downward - Repeat CPK in am 4) neph SUDARSHAN - unclear etiology, pending bladder scan, hold lisinopril - repeat in AM f/e/n - regular diet - replete lytes prn ppx - lovenox - pepcd - oob - scd dispo: requires inpatient care Visit type - Emergency Visit Emergency Visit: Yes ED Registration Date: 08/21/16 Care time: The patient presented to the Emergency Department on the above date and was hospitalized for further evaluation of their emergent condition. - New Patient This patient is new to me today: No - Critical Care Critical Care patient: No - Discharge Referral Referred to [facility] No
[2016-08-23 18:27] LABS: CK MB 5.8 ng/ml (0.3-4.0)
[2016-08-23 18:53] LABS: CALCIUM 8.9 mg/dl (8.4-10.2); COCKROFT - GAULT 51.97; CREATININE 1.7 mg/dl (0.6-1.3)
[2016-08-23] MEDS: ZOLPIDEM TARTRATE 5 MG TABLET PO PRN (21:36)
[2016-08-24 06:29] VITALS: PULSE 56; TEMP 98.5
[2016-08-24] MEDS: DOCUSATE SODIUM 100 MG CAPSULE (FP) PO SCH (06:49)
[2016-08-24 08:56] LABS: ANION GAP 7 (8-16); CALCIUM 9.6 mg/dl (8.4-10.2); CO2 26 mmol/L (22-28); CREATININE 1.3 mg/dl (0.6-1.3); GLUCOSE,RANDOM 122 mg/dl (74-106); MAGNESIUM 1.7 mg/dL (1.8-2.4); PHOSPHOROUS 3.7 mg/dl (2.5-4.6)
[2016-08-24] MEDS: ASPIRIN 81 MG CHEWABLE TABLETS PO SCH (09:52)
[2016-08-24] MEDS: BUDESONIDE/FORMETEROL FUMARATE 160/4.5 mcg INHALER IH SCH (09:52)
[2016-08-24] MEDS: SODIUM CHLORIDE 1,000 ML IV SCH (09:52)
[2016-08-24] MEDS: FAMOTIDINE 20 MG/50 ML IVPB 50 ML IVPB SCH (09:52)
[2016-08-24] MEDS: CLOPIDOGREL BISULFATE 75 MG TABLET (FP) PO SCH (09:52)
[2016-08-24] MEDS: ALPRAZolam 0.25 MG TABLET PO SCH (09:53)
[2016-08-24] MEDS: risperiDONE 1 MG TABLET (FP) PO SCH (09:53)
[2016-08-24] MEDS: ESCITALOPRAM OXALATE 20 MG TABLET (FP) PO SCH (09:53)
[2016-08-24] MEDS ORDERED: MAGNESIUM SULFATE 2 GM in SODIUM CHLORIDE 100 ML IVPB ONE (10:15)
[2016-08-24] MEDS ORDERED: SODIUM CHLORIDE 1 GM TABLET PO SCH (11:00)
--- NOTE | 2016-08-24 11:12 | PN ---
Progress Note (short form) - Note Progress Note: Renal Follow up for Hyponatremia Pt seen and examined at the bedside no acute complaints no sob or chest pain Vital Signs Temperature 98.5 F 08/24/16 06:00 Pulse Rate 56 L 08/24/16 06:00 Respiratory Rate 19 08/24/16 06:00 Blood Pressure 128/66 08/24/16 06:00 O2 Sat by Pulse Oximetry (%) 93 L 08/23/16 22:36 Gen: NAD CVS: RRR Lungs: CTA Abd: soft NT/ND Ext: No edema CBC, BMP 08/23/16 07:00 08/24/16 07:00 Current Medications Acetaminophen (Tylenol -) 650 mg PO Q4H PRN PRN Reason: FEVER OR PAIN Al Hydroxide/Mg Hydroxide (Mylanta Oral Suspension -) 30 ml PO Q6H PRN PRN Reason: DYSPEPSIA Albuterol/Ipratropium (Duoneb -) 1 amp NEB Q6H PRN PRN Reason: SHORTNESS OF BREATH Last Admin: 08/23/16 10:17 Dose: 1 amp Alprazolam (Xanax -) 1 mg PO BID [facility] Last Admin: 08/24/16 09:53 Dose: 1 mg Aspirin (Asa -) 81 mg PO DAILY [facility] Last Admin: 08/24/16 09:52 Dose: 81 mg Budesonide/Formoterol Fumarate (Symbicort 160/4.5mcg -) 1 puff IH BID [facility] Last Admin: 08/24/16 09:52 Dose: 1 puff Bupropion HCl (Wellbutrin Xl -) 300 mg PO DAILY [facility] Last Admin: 08/24/16 09:53 Dose: 300 mg Clopidogrel Bisulfate (Plavix -) 75 mg PO DAILY [facility] Last Admin: 08/24/16 09:52 Dose: 75 mg Docusate Sodium (Colace -) 100 mg PO TID [facility] Last Admin: 08/24/16 06:49 Dose: 100 mg Enoxaparin Sodium (Lovenox -) 40 mg SQ DAILY [facility] Last Admin: 08/23/16 10:04 Dose: 40 mg Escitalopram Oxalate (Lexapro -) 40 mg PO DAILY [facility] Last Admin: 08/24/16 09:53 Dose: 40 mg Famotidine/Sodium Chloride (Pepcid 20 Mg Premixed Ivpb -) 50 mls @ 100 mls/hr IVPB BID [facility] Last Admin: 08/24/16 09:52 Dose: 100 mls/hr Sodium Chloride (Normal Saline -) 1,000 mls @ 75 mls/hr IV ASDIR [facility] Last Admin: 08/24/16 09:52 Dose: 75 mls/hr Magnesium Sulfate 2 gm/ Sodium (Chloride) 104 mls @ 100 mls/hr IVPB ONCE ONE Stop: 08/24/16 11:17 Ondansetron HCl (Zofran Injection) 4 mg IVPB Q6H PRN PRN Reason: NAUSEA Last Admin: 08/22/16 09:01 Dose: 4 mg Risperidone (Risperdal -) 2 mg PO DAILY [facility] Last Admin: 08/24/16 09:53 Dose: 2 mg Sodium Chloride (Sodium Chloride Tablet -) 1 gm PO DAILY [facility] Zolpidem Tartrate (Ambien -) 5 mg PO HS PRN Last Admin: 08/23/16 21:36 Dose: 5 mg A/P 71 year old Gentleman with hx of Depression/Anxiety, CAD, Hyponatremia presented with Nausea and Na of 120. #Acute Hyponatremia secondary to intravascular volume depletion improved s/p isotonic saline start salt tabs 1g daily repeat bmp as outpatient #Acute Kidney Injury (hemodyamic changes/relative hypotension) Cr improved today maintain off ACEi for time being repeat labs in 1 week as outpatient will reacess need for ACEi at that time Ok for discharge with outpatient follow up in our office in 1 week Thank you Pavan Murphy DO
--- NOTE | 2016-08-24 11:17 | DS ---
Physical Exam: SUBJECTIVE: Patient seen and examined, patient reports feeling better denies any nausea, pt is tolerating meals. OBJECTIVE: This is a 71 year old male with a history of HTN, CAD s/p stent x 1 approx 10 yrs ago, and anxiety/depression who presented to the ED today complaining of three days of nausea and "dry heaving" without vomiting or diarrhea. He denies fevers/chills. He has had POWELL for several years and this is unchanged. He denies chest pain. He does report that his PO intake has been very poor ("a little water" every day, no food). He is not on any diuretics and none of his medications are new to him. He has been admitted for hyponatremia in the past in similar clinical context and improved with hydration. ER course was notable for: (1) Na 120 (2) EKG: Sinus bradycardia at 58bpm, left axis deviation (3) CXR: Cardiomegaly, no pulm vasc congestion (4) CK elevated at 1645, troponin <0.03 Vital Signs Period Temp Pulse Resp BP Sys/Gonzales Pulse Ox Last 24 Hr 97.5 F-98.5 F 56-84 18-20 114-128/59-66 90-93 PHYSICAL EXAM GENERAL: The patient is awake, alert, and fully oriented, in no acute distress. HEAD: Normal with no signs of trauma. EYES: PERRL, extraocular movements intact, sclera anicteric, conjunctiva clear. No ptosis. ENT: Ears normal, nares patent, oropharynx clear without exudates, moist mucous membranes. NECK: Trachea midline, full range of motion, supple. LUNGS: Breath sounds equal, clear to auscultation bilaterally, no wheezes, no crackles, no accessory muscle use. HEART: Regular rate and rhythm, S1, S2 without murmur, rub or gallop. ABDOMEN: Soft, nontender, nondistended, normoactive bowel sounds, no guarding, no rebound, no hepatosplenomegaly, no masses. EXTREMITIES: 2+ pulses, warm, well-perfused, no edema. NEUROLOGICAL: tardive dysknesia, Cranial nerves II through XII grossly intact. Normal speech, gait not observed. PSYCH: Normal mood, normal affect. SKIN: Warm, dry, normal turgor, no rashes or lesions noted LABS Laboratory Results - last 24 hr 08/23/16 08/23/16 08/23/16 07:00 07:00 18:05 Sodium 132 L Potassium 4.2 Chloride 99 Carbon Dioxide 23 Anion Gap 10 BUN 24 H D Creatinine 1.7 H Random Glucose 123 H Calcium 8.9 Phosphorus Magnesium CK-MB (CK-2) Cancelled 5.8 H CK-MB (CK-2) Rel Index 1.4 08/24/16 07:00 Sodium 133 L Potassium 4.5 Chloride 100 Carbon Dioxide 26 Anion Gap 7 L BUN 18 D Creatinine 1.3 D Random Glucose 122 H Calcium 9.6 Phosphorus 3.7 Magnesium 1.7 L CK-MB (CK-2) CK-MB (CK-2) Rel Index HOSPITAL COURSE: patient was admitted from the emergency department for hyponatremia, Likely secondary to poor by mouth intake and ADH release from nausea. serum sodium trended upward after IV hydration, Dr Murphy nephrology was consulted and followed. patient has past medical history of hypertension, blood pressure remained at goal. Lisinopril held due to SUDARSHAN. Cpk was noted to be elevated which trended downward after iv hydration. Tricor held. Date of Admission:08/21/16 Date of Discharge: 08/24/16 Minutes to complete discharge: 45 Discharge Summary Reason For Visit: HYPONATREMIA Current Active Problems CAD (coronary artery disease) (Acute) DVT prophylaxis (Acute) Elevated CPK (Acute) Hypertension (Acute) Hyponatremia (Acute) Nausea (Acute) Condition: Improved - Instructions Diet, Activity, Other Instructions: resume regular diet continue to hold your lisinopril take sodium tablets daily as prescribed please follow up with Dr Murphy (acct exec) within 1 week if Referrals: Chandu Hogan MD [Staff Physician] - Pavan Murphy MD [Staff Physician] - Disposition: HOME - Home Medications Comprehensive Discharge Medication List: Ambulatory Orders Clopidogrel Bisulfate [Plavix -] 75 mg PO DAILY 01/18/13 Aspirin [ASA -] 81 mg PO DAILY 04/29/14 Escitalopram Oxalate [Lexapro -] 40 mg PO DAILY 04/29/14 Lisinopril [Prinivil] 10 mg PO DAILY 04/29/14 Alprazolam [Xanax] 1 mg PO BID 11/19/14 Bupropion HCl [Wellbutrin Xl -] 300 mg PO DAILY 06/14/15 Fenofibrate Nanocrystallized [Tricor] 145 mg PO DAILY 06/14/15 Risperidone 2 mg PO DAILY 11/24/15 Zolpidem Tartrate [Ambien] 10 mg PO HS 11/25/15 Acetaminophen [Tylenol .Regular Strength -] 650 mg PO Q4H PRN #0 tablet This patient is new to me today: No Emergency Visit: Yes ED Registration Date: 08/21/16 Care time: The patient presented to the Emergency Department on the above date and was hospitalized for further evaluation of their emergent condition. Critical Care patient: No - Discharge Referral Referred to [facility] Med P.C.: No
[2016-08-24 14:16] VITALS: BP 130/66
== END 2016-08-24 14:17 | disposition home or self-care (01) | DRG 641 ==
LOC: FER 08:33 → FM/S 11:20
PROVIDERS: ADMIT Internal Medicine; ATTEND Nurse Practitioner Family
DX: E87.1 Hypo-osmolality and hyponatremia (principal); N17.9 Acute kidney failure, unspecified; I25.10 Atherosclerotic heart disease of native coronary artery without angina pectoris; R11.0 Nausea; R74.8 Abnormal levels of other serum enzymes; F41.8 Other specified anxiety disorders; I10 Essential (primary) hypertension; Z95.5 Presence of coronary angioplasty implant and graft
CPT/HCPCS: 36415; 71020-TC; 80048; 80053; 81003; 81015; 82550; 82553; 83735; 83880; 83930; 83935; 84100; 84295; 84300; 84443; 84484; 84550; 85025; 93005; 94640; 97116-GP; 97161-GP; 99284-25; J2794

== ENCOUNTER 2016-10-27 15:47 | Emergency (ER) | payer OTHER, BC ==
[2016-10-27] MEDS ORDERED: ONDANSETRON 4 MG/2 ML VIAL IVPB ONE (16:02)
[2016-10-27 16:06] VITALS: BP 156/72; PULSE 63; TEMP 98.3; BMI 32.4
[2016-10-27] MEDS ORDERED: ONDANSETRON 4 MG/2 ML VIAL ONE (16:12)
[2016-10-27 16:38] LABS: BASOPHIL 0.4 % (0-2.0); EOSINOPHIL 1.6 % (0-4.5); MCH 32.3 pg (25.7-33.7); MEAN CELL VOLUME 92.2 fl (80-96); MEAN PLT VOLUME 7.8 fl (7.5-11.1); NEUTROPHILS 75.7 % (42.8-82.8); PLATELET COUNT 322 K/MM3 (134-434); RDW 12.2 % (11.9-15.9); WHITE BLOOD COUNT 9.8 K/mm3 (4.0-10.8)
[2016-10-27 17:13] LABS: ALBUMIN 3.9 g/dl (3.5-5.0); ALK PHOS 73 U/L (32-92); ANION GAP 11 (8-16); BILIRUBIN,TOTAL 0.4 mg/dl (0.2-1.0); CO2 22 mmol/L (22-28); CPK(DFH) 175 IU/L (38-174); CREATININE 1.6 mg/dl (0.6-1.3); GLUCOSE,RANDOM 105 mg/dl (74-106); MAGNESIUM 1.5 mg/dL (1.8-2.4); SGOT/AST 19 U/L (10-42); SGPT/ALT 15 U/L (10-40); TOT PROT 6.3 g/dl (6.4-8.3)
[2016-10-27 17:15] LABS: TROPONIN I (DFP) < 0.03 ng/ml (0.03-0.50)
[2016-10-27] MEDS ORDERED: SODIUM CHLORIDE 1,000 ML IV STA (17:17)
--- NOTE | 2016-10-27 17:32 | PDOC ---
History of Present Illness - General History Source: Patient Exam Limitations: No Limitations - History of Present Illness Initial Comments: 10/27/16 17:38 The patient is a 71 year old male, with significant past medical history of anxiety, depression, COPD, HTN, HLD, [place] (s/p cardiac stents 2005), and abdominal aortic aneurysm (upcoming surgery scheduled), who presents to the emergency room with nausea since last night. The patient denies vomiting or abdominal pain. He notes mild intermittent chest discomfort that he has had for years. The chest pain is achy, lasts a couple of seconds, nonexertional and nonradiating. Denies abdominal pain. Denies fever, chills, vomiting, diarrhea. Denies SOB, cough, palpitations. Allergies: none reported PCP: Dr. Chandu Hogan <Carri Olivo - Last Filed: 10/27/16 17:38> - General History Source: Patient, Old Records Exam Limitations: No Limitations <Christopher Guzman - Last Filed: 10/27/16 18:07> - General Chief Complaint: Nausea Stated Complaint: NAUSEA Time Seen by Provider: 10/27/16 15:52 Past History <Carri Olivo - Last Filed: 10/27/16 17:38> - Past Medical History Anemia: No Asthma: No Cancer: No Cardiac Disorders: Yes (cardiac [id number], history of [place] 2005) CVA: No COPD: Yes CHF: No Dementia: (FORGETFUL) Diabetes: No GI Disorders: Yes (HEARTBURN) Disorders: No HTN: Yes Hypercholesterolemia: Yes Liver Disease: No Psychiatric Problems: Yes (ANXIETY DEPRESSION) Seizures: No Thyroid Disease: No - Surgical History Abdominal Surgery: No Appendectomy: No Cardiac Surgery: Yes (cardiac stent 2005) Cholecystectomy: No Lung Surgery: No Neurologic Surgery: No Orthopedic Surgery: No - Psycho/Social/Smoking Cessation Hx Anxiety: Yes Suicidal Ideation: No Smoking Status: No Smoking History: Former smoker Have you smoked in the past 12 months: No Number of Cigarettes Smoked Daily: 0 If you are a former smoker, when did you quit?: 2005 Information on smoking cessation initiated: No Hx Alcohol Use: Yes Drug/Substance Use Hx: No Substance Use Type: Alcohol Hx Substance Use Treatment: Yes <Christopher Guzman - Last Filed: 10/27/16 18:07> - Past Medical History Allergies/Adverse Reactions: Allergies Allergy/AdvReac Type Severity Reaction Status Date / Time No Known Allergies Allergy Verified 03/06/16 13:33 Home Medications: Ambulatory Orders Clopidogrel Bisulfate [Plavix -] 75 mg PO DAILY 01/18/13 Aspirin [ASA -] 81 mg PO DAILY 04/29/14 Escitalopram Oxalate [Lexapro -] 40 mg PO DAILY 04/29/14 Alprazolam [Xanax] 1 mg PO BID 11/19/14 Bupropion HCl [Wellbutrin Xl -] 300 mg PO DAILY 06/14/15 Fenofibrate Nanocrystallized [Tricor] 145 mg PO DAILY 06/14/15 Risperidone 2 mg PO DAILY 11/24/15 Zolpidem Tartrate [Ambien] 10 mg PO HS 11/25/15 Acetaminophen [Tylenol .Regular Strength -] 650 mg PO Q4H PRN #0 tablet Albuterol 0.083% Nebulizer Aletha [Ventolin 0.083% Nebulizer Soln -] 1 neb NEB Q4H PRN #30 vial 08/24/16 Fluticasone/Salmeterol [Advair 250-50 Diskus] 1 each IH BID #1 blst.w.dev Ondansetron HCl [Zofran] 4 mg PO Q8H PRN #10 tablet 10/27/16 Review of Systems - Review of Systems Able to Perform ROS?: Yes Comments:: 10/27/16 17:38 GENERAL/CONSTITUTIONAL: No fever or chills. No weakness. HEAD, EYES, EARS, NOSE AND THROAT: No change in vision. No ear pain or discharge. No sore throat. CARDIOVASCULAR: No shortness of breath. RESPIRATORY: No cough, wheezing, or hemoptysis. GASTROINTESTINAL: +nausea. No abdominal pain, vomiting, diarrhea or constipation. GENITOURINARY: No dysuria, frequency, or change in urination. MUSCULOSKELETAL: No joint or muscle swelling or pain. No neck or back pain. SKIN: No rash NEUROLOGIC: No headache, vertigo, loss of consciousness, or change in strength/ sensation. ENDOCRINE: No increased thirst. No abnormal weight change. HEMATOLOGIC/LYMPHATIC: No anemia, easy bleeding, or history of blood clots. ALLERGIC/IMMUNOLOGIC: No hives or skin allergy. <Carri Olivo - Last Filed: 10/27/16 17:38> *Physical Exam - Vital Signs Last Vital Signs Temp Pulse Resp BP Pulse Ox 98.3 F 63 18 156/72 98 10/27/16 15:49 10/27/16 15:49 10/27/16 15:49 10/27/16 15:49 10/27/16 15:49 - Physical Exam Comments: 10/27/16 17:39 GENERAL: Awake, alert, and fully oriented, in no acute distress HEAD: No signs of trauma EYES: PERRLA, EOMI, sclera anicteric, conjunctiva clear ENT: Auricles normal inspection, hearing grossly normal, nares patent, oropharynx clear without exudates. Moist mucosa NECK: Normal ROM, supple, no lymphadenopathy, JVD, or masses LUNGS: Breath sounds equal, clear to auscultation bilaterally. No wheezes, and no crackles HEART: Regular rate and rhythm, normal S1 and S2, no murmurs, rubs or gallops ABDOMEN: Soft, nontender, normoactive bowel sounds. No guarding, no rebound. No masses EXTREMITIES: Normal range of motion, no edema. No clubbing or cyanosis. No cords, erythema, or tenderness NEUROLOGICAL: Cranial nerves II through XII grossly intact. Normal speech, normal gait SKIN: Warm, Dry, normal turgor, no rashes or lesions noted. <StuartCarri armstrong - Last Filed: 10/27/16 17:38> - Vital Signs Last Vital Signs Temp Pulse Resp BP Pulse Ox 98.3 F 63 18 156/72 98 10/27/16 15:49 10/27/16 15:49 10/27/16 15:49 10/27/16 15:49 10/27/16 15:49 <Christopher Guzman - Last Filed: 10/27/16 18:07> Heart Score/ECG Review #1 ECG reviewed & interpreted by me at: 16:20 10/27/16 17:35 NSR 58 with 1st degree AV block, Q wave III, aVF, (old) no std/patricia, poor baseline V5-V6, QTC 408 msec <Christopher Guzman - Last Filed: 10/27/16 18:07> ED Treatment Course - LABORATORY CBC & Chemistry Diagram: 10/27/16 16:05 10/27/16 16:05 - ADDITIONAL ORDERS Additional order review: Laboratory Results 10/27/16 10/27/16 16:05 16:05 Sodium 131 L Potassium 4.5 Chloride 98 Carbon Dioxide 22 Anion Gap 11 BUN 22 H D Creatinine 1.6 H D Creat Clearance w eGFR 42.70 Random Glucose 105 Calcium 9.0 Magnesium 1.5 L Total Bilirubin 0.4 D AST 19 ALT 15 Alkaline Phosphatase 73 Creatine Kinase 175 H D Troponin I < 0.03 L Total Protein 6.3 L Albumin 3.9 Lipase 37 10/27/16 16:05 RBC 4.14 MCV 92.2 MCHC 35.0 RDW 12.2 MPV 7.8 Neutrophils % 75.7 Lymphocytes % 14.6 D Monocytes % 7.7 Eosinophils % 1.6 Basophils % 0.4 - Medications Given in the ED: ED Medications Discontinued Medications Generic Name Dose Route Start Last Admin Trade Name Freq PRN Reason Stop Dose Admin Ondansetron HCl 4 mg 10/27/16 16:02 10/27/16 16:11 Zofran Injection IVPB 10/27/16 16:03 4 mg ONCE ONE Administration <Carri Olivo - Last Filed: 10/27/16 17:38> - LABORATORY CBC & Chemistry Diagram: 10/27/16 16:05 10/27/16 16:05 - ADDITIONAL ORDERS Additional order review: Laboratory Results 10/27/16 10/27/16 16:05 16:05 Sodium 131 L Potassium 4.5 Chloride 98 Carbon Dioxide 22 Anion Gap 11 BUN 22 H D Creatinine 1.6 H D Creat Clearance w eGFR 42.70 Random Glucose 105 Calcium 9.0 Magnesium 1.5 L Total Bilirubin 0.4 D AST 19 ALT 15 Alkaline Phosphatase 73 Creatine Kinase 175 H D Troponin I < 0.03 L Total Protein 6.3 L Albumin 3.9 Lipase 37 10/27/16 16:05 RBC 4.14 MCV 92.2 MCHC 35.0 RDW 12.2 MPV 7.8 Neutrophils % 75.7 Lymphocytes % 14.6 D Monocytes % 7.7 Eosinophils % 1.6 Basophils % 0.4 - Medications Given in the ED: ED Medications Discontinued Medications Generic Name Dose Route Start Last Admin Trade Name Freq PRN Reason Stop Dose Admin Ondansetron HCl 4 mg 10/27/16 16:02 10/27/16 16:11 Zofran Injection IVPB 10/27/16 16:03 4 mg ONCE ONE Administration <Christopher Guzman - Last Filed: 10/27/16 18:07> Medical Decision Making - Medical Decision Making 10/27/16 17:30 A portion of this note was documented by scribe services under my direction. I have reviewed the details of the note, within reason, and agree with the documentation with the following case summary and management plan written by me. Patient treated in the ED. Nursing notes are reviewed and incorporated into the medical decision-making. Vital signs reviewed. Peripheral IV access obtained by the nurse, laboratory studies are drawn and sent, reviewed and interpreted by myself. Vital Signs Temp Pulse Resp BP Pulse Ox 98.3 F 63 18 156/72 98 10/27/16 15:49 10/27/16 15:49 10/27/16 15:49 10/27/16 15:49 10/27/16 15:49 71 year old male with past medical history of coronary disease, COPD, GERD, depression/anxiety presents with nausea. Patient reports 3 days with the symptoms. States a decreased appetite but no abdominal pain, chest pain or diarrhea. Denies fevers. States that he has intermittent nausea over the course of the year. He also complains about chronic intermittent several seconds of achy like chest pain that has been there for years which is not changed. He states that he is not here for his chest pain and that he is here for his nausea. Last time the patient was here, he had a sodium 120. The patient was ultimately admitted and was thought likely secondary to hypovolemia. The patient has no abdominal tenderness. Do not suspect acute bowel pathology at this time. However, given his history of hyponatremia, we'll obtain labs. The patient's chest pain is chronic and not changed. I have very low suspicion for acute coronary syndrome at this time. We will give Zofran and reassess. CBC, BMP 10/27/16 16:05 10/27/16 16:05 CMP Sodium 131 mmol/L (136-145) L 10/27/16 16:05 Potassium 4.5 mmol/L (3.5-5.1) 10/27/16 16:05 Chloride 98 mmol/L (98-107) 10/27/16 16:05 Carbon Dioxide 22 mmol/L (22-28) 10/27/16 16:05 Anion Gap 11 (8-16) 10/27/16 16:05 BUN 22 mg/dl (7-18) H D 10/27/16 16:05 Creatinine 1.6 mg/dl (0.6-1.3) H D 10/27/16 16:05 Creat Clearance w eGFR 42.70 (>60) 10/27/16 16:05 Random Glucose 105 mg/dl (74-106) 10/27/16 16:05 Calcium 9.0 mg/dl (8.4-10.2) 10/27/16 16:05 Magnesium 1.5 mg/dL (1.8-2.4) L 10/27/16 16:05 Total Bilirubin 0.4 mg/dl (0.2-1.0) D 10/27/16 16:05 AST 19 U/L (10-42) 10/27/16 16:05 ALT 15 U/L (10-40) 10/27/16 16:05 Alkaline Phosphatase 73 U/L (32-92) 10/27/16 16:05 Creatine Kinase 175 IU/L (38-174) H D 10/27/16 16:05 Troponin I < 0.03 ng/ml (0.03-0.50) L 10/27/16 16:05 Total Protein 6.3 g/dl (6.4-8.3) L 10/27/16 16:05 Albumin 3.9 g/dl (3.5-5.0) 10/27/16 16:05 Lipase 37 U/L (22-51) 10/27/16 16:05 Patient's creatinine 1.6 which is a slight the above his prior 1.3. Sodium is 131. Patient Zofran improved drastically with the Zofran. Given these findings, patient will be given 1 L fluids. He reports feeling much better. I advised patient to follow up with his regular doctor. He states that he will. Return precautions given. Discharge diagnosis: nausea I discussed the physical exam findings, ancillary test results and final diagnoses with the patient. I answered all of the patient's questions. The patient was satisfied with the care received and felt comfortable with the discharge plan and treatment plan. The patient will call their primary care physician within 24 hours to arrange follow-up and will return to the Emergency Department with any new, persistant or worsening symptoms. <Christopher Guzman - Last Filed: 10/27/16 18:07> *DC/Admit/Observation/Transfer - Attestations Scribe Attestion: 10/27/16 17:40 Documentation prepared by NILSA Basurto, acting as remote medical coder for Christopher Guzman MD. <Carri Olivo - Last Filed: 10/27/16 17:38> - Discharge Dispostion Admit: No <Christopher Guzman - Last Filed: 10/27/16 18:07> Diagnosis at time of Disposition: Nausea - Discharge Dispostion Disposition: HOME Condition at time of disposition: Stable - Prescriptions Prescriptions: Ondansetron HCl [Zofran] 4 mg PO Q8H PRN #10 tablet PRN Reason: Nausea - Referrals Referrals: Chandu Hogan MD [Primary Care Provider] - - Patient Instructions Printed Discharge Instructions: DI for Nausea -- Adult Additional Instructions: Your kidney function level (creatinine) is 1.6, which is slightly elevated from 1.3. This is possibly due to dehydration. Please continue to drink plenty of fluids and follow up with your doctor. If you have worsening nausea and vomiting, please return to the ER for further evaluation.
[2016-10-27 17:56] LABS: CK MB 3.6 ng/ml (0.3-4.0)
--- NOTE | 2016-10-31 08:43 | EKG ---
Test Reason : Blood Pressure : / mmHG Vent. Rate : 058 BPM Atrial Rate : 058 BPM P-R Int : 208 ms QRS Dur : 102 ms QT Int : 416 ms P-R-T Axes : 038 -23 -06 degrees QTc Int : 408 ms POOR DATA QUALITY, INTERPRETATION MAY BE ADVERSELY AFFECTED SINUS BRADYCARDIA WITH 1ST DEGREE A-V BLOCK INFERIOR INFARCT (CITED ON OR BEFORE 21-AUG-2016) NONSPECIFIC T WAVE ABNORMALITY ABNORMAL ECG WHEN COMPARED WITH ECG OF 21-AUG-2016 08:53, Probably no significant change, but quality of both current and prior ECGs are suboptimal due to baseline wander Confirmed by SNOAL ORTEGA MD ([id number]) on 10/31/2016 8:42:27 AM Referred By: Miles MUNSON Confirmed By:SONAL ORTEGA MD
== END 2016-10-27 18:05 | disposition home or self-care (01) ==
LOC: FER 15:47
PROC: 3E0337Z Introduction of Electrolytic and Water Balance Substance into Peripheral Vein, Percutaneous Approach (ICD-10-PCS; principal; 2016-10-27)
PROC: 3E033GC Introduction of Other Therapeutic Substance into Peripheral Vein, Percutaneous Approach (ICD-10-PCS; 2016-10-27)
DX: R11.0 Nausea (principal); F41.8 Other specified anxiety disorders; I10 Essential (primary) hypertension; E78.5 Hyperlipidemia, unspecified; I25.2 Old myocardial infarction; Z95.5 Presence of coronary angioplasty implant and graft; I71.4 Abdominal aortic aneurysm, without rupture; F03.90 Unspecified dementia, unspecified severity, without behavioral disturbance, psychotic disturbance, mood disturbance, and anxiety; Z87.891 Personal history of nicotine dependence
CPT/HCPCS: 36415; 80053; 82550; 82553; 83690; 83735; 84484; 85025; 93005; 99284-25

== ENCOUNTER 2016-10-28 17:35 | Observation (INO) | payer OTHER, BC ==
[2016-10-28] MEDS ORDERED: SODIUM CHLORIDE 1,000 ML IV STA (17:41)
--- NOTE | 2016-10-28 17:44 | PDOC ---
History of Present Illness - General History Source: Patient Exam Limitations: No Limitations - History of Present Illness Initial Comments: 10/28/16 18:17 The patient is a 71 year old male, with significant past medical history of anxiety, depression, COPD, HTN, HLD, [place] (s/p cardiac stents 2005), and abdominal aortic aneurysm (upcoming surgery scheduled), who is revisiting the emergency room with nausea since yesterday. Patient was here yesterday for similar symptoms and was discharged after given zofran and IV fluids. Patient states he felt sick again as soon as he got home. Patient denies any abdominal pain, vomiting, diarrhea, constipation. Patient states he is able to pass gas properly, but has not had a bowel movement since yesterday. Patient denies fever, chills, chest pain, SOB. Past surgical hx: cardiac stent, abdominal hernia. Patient denies smoking cigarettes, and drinking alcohol. PCP: Dr. Chandu Hogan <Zander Kang - Last Filed: 10/28/16 18:17> - General History Source: Patient Exam Limitations: No Limitations <Faith Ames - Last Filed: 10/29/16 17:14> - General Chief Complaint: Nausea Stated Complaint: NAUSEA Time Seen by Provider: 10/28/16 17:39 Past History <Zander Kang - Last Filed: 10/28/16 18:17> - Past Medical History Anemia: No Asthma: No Cancer: No Cardiac Disorders: Yes (cardiac [id number], history of [place] 2005) CVA: No COPD: Yes CHF: No Dementia: (FORGETFUL) Diabetes: No GI Disorders: Yes (HEARTBURN) Disorders: No HTN: Yes Hypercholesterolemia: Yes Liver Disease: No Psychiatric Problems: Yes (ANXIETY DEPRESSION) Seizures: No Thyroid Disease: No - Surgical History Abdominal Surgery: No Appendectomy: No Cardiac Surgery: Yes (cardiac stent 2005) Cholecystectomy: No Lung Surgery: No Neurologic Surgery: No Orthopedic Surgery: No - Psycho/Social/Smoking Cessation Hx Anxiety: Yes Suicidal Ideation: No Smoking Status: No Smoking History: Former smoker Have you smoked in the past 12 months: No Number of Cigarettes Smoked Daily: 0 If you are a former smoker, when did you quit?: 2005 Information on smoking cessation initiated: No Hx Alcohol Use: Yes Drug/Substance Use Hx: No Substance Use Type: Alcohol Hx Substance Use Treatment: Yes <Faith Ames Last Filed: 10/29/16 17:14> - Past Medical History Allergies/Adverse Reactions: Allergies Allergy/AdvReac Type Severity Reaction Status Date / Time No Known Allergies Allergy Verified 10/28/16 21:45 Home Medications: Ambulatory Orders Clopidogrel Bisulfate [Plavix -] 75 mg PO DAILY 01/18/13 Aspirin [ASA -] 81 mg PO DAILY 04/29/14 Escitalopram Oxalate [Lexapro -] 40 mg PO DAILY 04/29/14 Alprazolam [Xanax] 1 mg PO BID 11/19/14 Bupropion HCl [Wellbutrin Xl -] 300 mg PO DAILY 06/14/15 Fenofibrate Nanocrystallized [Tricor] 145 mg PO DAILY 06/14/15 Risperidone 2 mg PO DAILY 11/24/15 Zolpidem Tartrate [Ambien] 10 mg PO HS 11/25/15 Acetaminophen [Tylenol .Regular Strength -] 650 mg PO Q4H PRN #0 tablet Ondansetron HCl [Zofran] 4 mg PO Q8H PRN #10 tablet 10/27/16 Budesonide/Formeterol Fumarate [SYMBICORT 160/4.5mcg -] 1 inh PO BID 10/28/16 Ezetimibe/Simvastatin [Vytorin 10-20 mg Tablet] 1 tab PO DAILY 10/28/16 Lisinopril 10 mg PO DAILY 10/28/16 Review of Systems - Review of Systems Comments:: 10/28/16 18:17 GENERAL/CONSTITUTIONAL: No: fever, chills, weakness, loss of appetite. HEAD, EYES, EARS, NOSE AND THROAT: No: change in vision, ear pain, discharge, sore throat, throat swelling. CARDIOVASCULAR: No: chest pain, lightheadedness, palpitations, syncope RESPIRATORY: No: cough, shortness of breath, wheezing, hemoptysis, stridor. GASTROINTESTINAL: + nausea. No: vomiting, abdominal cramping, diarrhea, rectal bleeding, constipation. GENITOURINARY: No: dysuria, hematuria, frequency, urgency, flank pain. MUSCULOSKELETAL: No: back pain, neck pain, joint pain, muscle swelling or pain SKIN AND BREASTS: No: lesions, pallor, rash or easy bruising. NEUROLOGIC: No: headache, vertigo, paresthesias, weakness ENDOCRINE: No: unexplained weight gain or loss HEMATOLOGIC/LYMPHATIC: No: anemia, easy bleeding, swelling nodes <Zander Kang - Last Filed: 10/28/16 18:17> *Physical Exam - Vital Signs Last Vital Signs Temp Pulse Resp BP Pulse Ox 97.5 F L 89 20 152/92 96 10/28/16 17:39 10/28/16 17:39 10/28/16 17:39 10/28/16 18:05 10/28/16 17:39 - Physical Exam Comments: 10/28/16 18:17 GENERAL: The patient is in no acute distress. Diaphoretic. HEAD: Normal with no signs of trauma. EYES: PERRLA, EOMI, sclera anicteric, conjunctiva clear. ENT: Ears normal, nares patent, oropharynx clear without exudates. Dry mucous membranes. Involuntary tongue and mouth movements. NECK: Normal range of motion, supple without lymphadenopathy, JVD, or masses. LUNGS: Breath sounds equal, clear to auscultation bilaterally. No wheezes, and no crackles. HEART:Regular rate and rhythm, normal S1 and S2 without murmur, rub or gallop. ABDOMEN: Soft, nontender, normoactive bowel sounds. No guarding, no rebound. EXTREMITIES: Normal range of motion, no edema. No clubbing or cyanosis. No erythema, or tenderness. Moving all his extremities. NEUROLOGICAL: Cranial nerves II through XII grossly intact. Normal speech. No focal neurological deficits. MUSCULOSKELETAL: Back non-tender to palpation, no CVA tenderness SKIN: Warm, Dry, normal turgor, no rashes or lesions noted. <Zander Kang - Last Filed: 10/28/16 18:17> Heart Score/ECG Review #1 ECG reviewed & interpreted by me at: 18:35 10/28/16 18:35 Twelve-lead EKG was performed and reviewed by me. There is normal sinus rhythm with a normal rate of 66 bpm. The axis is normal. The intervals are normal - pr: 194ms, QRS:94ms, QTc:410ms. There are no ST elevations or depressions. Diffuse T wave flattening. Q waves III, AVF <Faith Ames - Last Filed: 10/29/16 17:14> ED Treatment Course - LABORATORY CBC & Chemistry Diagram: 10/28/16 18:00 10/28/16 18:00 - Medications Given in the ED: ED Medications Discontinued Medications Generic Name Dose Route Start Last Admin Trade Name Christin PRN Reason Stop Dose Admin Ondansetron HCl 4 mg 10/28/16 17:53 10/28/16 18:06 Zofran Injection IVPUSH 10/28/16 17:54 4 mg ONCE ONE Administration <Zander Kang - Last Filed: 10/28/16 18:17> - LABORATORY CBC & Chemistry Diagram: 10/29/16 07:18 10/29/16 07:18 <Faith Ames - Last Filed: 10/29/16 17:14> Medical Decision Making - Medical Decision Making 10/28/16 17:44 A portion of this note was documented by scribe services under my direction. I have reviewed the details of the note, within reason, and agree with the documentation with the following case summary and management plan written by me. Nursing documentation reviewed and incorporated into medical decision making 10/28/16 18:26 This is a 71 y.o M h/o CAD/ COPD/bipolar disorder, recurrent presentations to the ER for nausea and hyponatremia, h/o AAA (to be repaired in a few months), h/ o umbilical hernia/hernia repair Pt was seen in the ER yesterday for nausea, retching, unable to bring anything up No fevers or chills No abdominal pain No bowel movement today (+) flatus today No chest pain On examination: Dry mucous membranes Involuntary facial movements No abdominal tenderness to palpation/no guarding/no rebound Will repeat labs Will IV hydrate Will give Zofran for nausea Will do CXR (pt also states he has shortness of breath) Will do CT given large aneurysm, diaphoresis 10/29/16 17:12 Laboratory Tests 10/28/16 10/28/16 10/28/16 18:00 18:00 18:00 WBC 9.5 Hgb 14.2 Hct 42.0 Plt Count 356 Sodium 131 L BUN 19 H Creatinine 1.5 H Creatine Kinase 225 H D CK-MB (CK-2) Cancelled CK-MB (CK-2) Rel Index 1.9 Troponin I < 0.03 L Total Amylase 131 H D Lipase 50 Pt placed on observation to Dr Hameedi Recurrent episodes of nausea and vomiting In ability to tolerate po Will place on observation <Faith Ames - Last Filed: 10/29/16 17:14> *DC/Admit/Observation/Transfer - Attestations Scribe Attestion: 10/28/16 18:18 Documentation prepared by Zander Kang, acting as medical information specialist for Faith Ames MD. <Zander Kang - Last Filed: 10/28/16 18:17> - Discharge Dispostion Admit: Yes <Faith Ames - Last Filed: 10/29/16 17:14> Diagnosis at time of Disposition: Nausea - Discharge Dispostion Condition at time of disposition: Stable - Referrals
[2016-10-28] MEDS ORDERED: ONDANSETRON 4 MG/2 ML VIAL IVPUSH ONE (17:53)
[2016-10-28] MEDS ORDERED: ONDANSETRON 4 MG/2 ML VIAL ONE (17:54)
[2016-10-28 18:15] LABS: BASOPHIL 2.1 % (0-2.0); EOSINOPHIL 1.2 % (0-4.5); MCH 31.7 pg (25.7-33.7); MCHC 33.7 g/dl (32.0-35.9); MEAN CELL VOLUME 94.2 fl (80-96); MEAN PLT VOLUME 7.9 fl (7.5-11.1); NEUTROPHILS 79.9 % (42.8-82.8); PLATELET COUNT 356 K/MM3 (134-434); RDW 12.4 % (11.9-15.9); WHITE BLOOD COUNT 9.5 K/mm3 (4.0-10.8)
[2016-10-28 18:30] LABS: ALBUMIN 4.2 g/dl (3.5-5.0); ALK PHOS 75 U/L (32-92); AMYLASE 131 U/L (25-125); ANION GAP 10 (8-16); BILIRUBIN,TOTAL 0.6 mg/dl (0.2-1.0); CALCIUM 9.2 mg/dl (8.4-10.2); CO2 22 mmol/L (22-28); CPK(DFH) 225 IU/L (38-174); CREATININE 1.5 mg/dl (0.6-1.3); GLUCOSE,RANDOM 105 mg/dl (74-106); SGOT/AST 22 U/L (10-42); SGPT/ALT 15 U/L (10-40); TOT PROT 6.7 g/dl (6.4-8.3)
[2016-10-28 18:37] LABS: TROPONIN I (DFP) < 0.03 ng/ml (0.03-0.50)
[2016-10-28] MEDS ORDERED: MAGNESIUM SULF 50% (8.12 MEQ/2 ML-1 GM VIAL) IVPB ONE (19:40)
[2016-10-28 20:24] LABS: PH,URINE 5.5 (4.5-8); URINE APPEARANCE Clear; URINE BILIRUBIN Negative (NEGATIVE); URINE GLUCOSE (UA) Negative (NEGATIVE); URINE KETONE Negative (NEGATIVE); URINE LEUK ESTERASE Negative (NEGATIVE); URINE NITRITE Negative (NEGATIVE); URINE PROTEIN Negative (NEGATIVE); URINE UROBILINOGEN 0.2 E.U/dl (0.2-1.0)
[2016-10-28 20:25] LABS: URINE BLOOD TRACE (NEGATIVE); URINE COLOR YELLOW
[2016-10-28 20:59] LABS: URINE RBC 0-2 /hpf (0-3); URINE WBC NONE SEEN (3-5)
[2016-10-28] MEDS ORDERED: SODIUM CHLORIDE 1,000 ML IV SCH (23:00)
--- NOTE | 2016-10-28 23:02 | HP ---
Admitting History and Physical - Primary Care Physician PCP: Rita Merrill - Admission Chief Complaint: nausea History of Present Illness: 71 year old male, with significant past medical history of anxiety, depression, COPD, HTN, HLD, [place] (s/p cardiac stents 2005), and abdominal aortic aneurysm ( upcoming surgery scheduled), who is revisiting the emergency room with nausea since yesterday. Patient was here yesterday for similar symptoms and was discharged after given zofran and IV fluids. Patient states he felt sick again as soon as he got home. and came to er - Past Medical History Cardiovascular: Yes: CAD, HTN, Hyperlipdemia, [place] Gastrointestinal: Yes: Other (umbilical hernia) Psych: Yes: Anxiety, Depression - Past Surgical History Past Surgical History: Yes: None - Smoking History Smoking history: Former smoker Have you smoked in the past 12 months: No Aproximately how many cigarettes per day: 0 If you are a former smoker, when did you quit?: 2005 - Alcohol/Substance Use Hx Alcohol Use: Yes History of Substance Use: reports: None - Social History ADL: Independent History of Recent Travel: No Home Medications - Allergies Allergies/Adverse Reactions: Allergies Allergy/AdvReac Type Severity Reaction Status Date / Time No Known Allergies Allergy Verified 10/28/16 21:45 - Home Medications Home Medications: Ambulatory Orders Clopidogrel Bisulfate [Plavix -] 75 mg PO DAILY 01/18/13 Aspirin [ASA -] 81 mg PO DAILY 04/29/14 Escitalopram Oxalate [Lexapro -] 40 mg PO DAILY 04/29/14 Alprazolam [Xanax] 1 mg PO BID 11/19/14 Bupropion HCl [Wellbutrin Xl -] 300 mg PO DAILY 06/14/15 Fenofibrate Nanocrystallized [Tricor] 145 mg PO DAILY 06/14/15 Risperidone 2 mg PO DAILY 11/24/15 Zolpidem Tartrate [Ambien] 10 mg PO HS 11/25/15 Acetaminophen [Tylenol .Regular Strength -] 650 mg PO Q4H PRN #0 tablet Ondansetron HCl [Zofran] 4 mg PO Q8H PRN #10 tablet 10/27/16 Budesonide/Formeterol Fumarate [SYMBICORT 160/4.5mcg -] 1 inh PO BID 10/28/16 Ezetimibe/Simvastatin [Vytorin 10-20 mg Tablet] 1 tab PO DAILY 10/28/16 Lisinopril 10 mg PO DAILY 10/28/16 Physical Examination Vital Signs: Vital Signs Temperature 97.5 F L 10/28/16 17:39 Pulse Rate 59 L 10/28/16 19:10 Respiratory Rate 22 10/28/16 19:10 Blood Pressure 117/63 10/28/16 19:10 O2 Sat by Pulse Oximetry (%) 94 L 10/28/16 19:10 Constitutional: Yes: Anxious HENT: Yes: Atraumatic Cardiovascular: Yes: Regular Rate and Rhythm Respiratory: Yes: CTA Bilaterally Gastrointestinal: Yes: Normal Bowel Sounds Extremities: Yes: WNL Edema: No Neurological: Yes: Alert, Oriented Problem List - Problems (1) Nausea Assessment/Plan: iv prn zofran ivf Code(s): R11.0 - NAUSEA (2) CAD (coronary artery disease) Code(s): I25.10 - ATHSCL HEART DISEASE OF [place] CORONARY ARTERY W/O ANG PCTRS (3) Hypertension Assessment/Plan: on meds stable Code(s): I10 - ESSENTIAL (PRIMARY) HYPERTENSION (4) Hyponatremia Assessment/Plan: mild will fu Code(s): E87.1 - HYPO-OSMOLALITY AND HYPONATREMIA (5) Anxiety Assessment/Plan: on meds continue Code(s): F41.9 - ANXIETY DISORDER, UNSPECIFIED (6) Depression Assessment/Plan: on meds continue Code(s): F32.9 - MAJOR DEPRESSIVE DISORDER, SINGLE EPISODE, UNSPECIFIED
[2016-10-29 00:40] VITALS: BMI 32.8
[2016-10-29] MEDS ORDERED: ZOLPIDEM TARTRATE 5 MG TABLET PO ONE (01:00)
[2016-10-29] MEDS ORDERED: ZOLPIDEM TARTRATE 5 MG TABLET ONE (01:06)
[2016-10-29] MEDS: ESCITALOPRAM OXALATE 20 MG TABLET (FP) PO SCH ×2 (04:40→09:52)
[2016-10-29] MEDS ORDERED: ALPRAZolam 2 MG TABLET PO SCH (04:45)
[2016-10-29] MEDS: ONDANSETRON 4 MG/2 ML VIAL IVPUSH PRN ×3 (04:47→16:10)
[2016-10-29] MEDS ORDERED: ALPRAZolam 0.25 MG TABLET ONE (05:54)
[2016-10-29] MEDS: ALPRAZolam 0.25 MG TABLET PO SCH ×2 (06:06→21:16)
[2016-10-29 07:42] LABS: WHITE BLOOD COUNT 8.3 K/mm3 (4.0-10.8)
[2016-10-29 07:49] LABS: BASOPHIL 0.2 % (0-2.0); EOSINOPHIL 0.9 % (0-4.5); MCH 32.8 pg (25.7-33.7); MCHC 34.6 g/dl (32.0-35.9); MEAN CELL VOLUME 94.7 fl (80-96); MEAN PLT VOLUME 7.9 fl (7.5-11.1); NEUTROPHILS 82.6 % (42.8-82.8); PLATELET COUNT 318 K/MM3 (134-434); RDW 12.6 % (11.9-15.9)
[2016-10-29 07:58] LABS: ALBUMIN 3.6 g/dl (3.5-5.0); ALK PHOS 65 U/L (32-92); ANION GAP 7 (8-16); BILIRUBIN,TOTAL 0.6 mg/dl (0.2-1.0); CALCIUM 8.9 mg/dl (8.4-10.2); CO2 24 mmol/L (22-28); CREATININE 1.1 mg/dl (0.6-1.3); GLUCOSE,RANDOM 110 mg/dl (74-106); SGOT/AST 16 U/L (10-42); SGPT/ALT 14 U/L (10-40)
[2016-10-29] MEDS: ASPIRIN 81 MG CHEWABLE TABLETS PO SCH (09:52)
[2016-10-29] MEDS: LISINOPRIL 10 MG TABLET (FP) PO SCH (09:52)
[2016-10-29] MEDS: CLOPIDOGREL BISULFATE 75 MG TABLET (FP) PO SCH (09:52)
[2016-10-29] MEDS ORDERED: risperiDONE 2 MG TABLET PO SCH (10:00)
[2016-10-29] MEDS ORDERED: ONDANSETRON 4 MG/2 ML VIAL ONE (16:06)
--- NOTE | 2016-10-29 17:26 | PN ---
Progress Note, Physician History of Present Illness: doing well - Current Medication List Current Medications: Active Medications Alprazolam (Xanax -) 1 mg PO BID [facility] Last Admin: 10/29/16 06:06 Dose: Not Given Aspirin (Asa -) 81 mg PO DAILY [facility] Last Admin: 10/29/16 09:52 Dose: 81 mg Atorvastatin Calcium (Lipitor -) 10 mg PO HS [facility] Clopidogrel Bisulfate (Plavix -) 75 mg PO DAILY [facility] Last Admin: 10/29/16 09:52 Dose: 75 mg Ezetimibe (Zetia -) 10 mg PO HS [facility] Escitalopram Oxalate (Lexapro -) 40 mg PO DAILY [facility] Last Admin: 10/29/16 09:52 Dose: 40 mg Sodium Chloride (Normal Saline -) 1,000 mls @ 75 mls/hr IV ASDIR [facility] Last Admin: 10/28/16 23:30 Dose: 75 mls/hr Lisinopril (Prinivil) 10 mg PO DAILY [facility] Last Admin: 10/29/16 09:52 Dose: 10 mg - Objective Vital Signs: Vital Signs Temperature 97.7 F 10/29/16 14:28 Pulse Rate 57 L 10/29/16 14:28 Respiratory Rate 20 10/29/16 16:00 Blood Pressure 138/69 10/29/16 14:28 O2 Sat by Pulse Oximetry (%) 93 L 10/29/16 16:00 Constitutional: Yes: Anxious HENT: Yes: Atraumatic Cardiovascular: Yes: Regular Rate and Rhythm Respiratory: Yes: CTA Bilaterally Gastrointestinal: Yes: Normal Bowel Sounds Extremities: Yes: WNL Neurological: Yes: Alert, Oriented Labs: CBC, BMP 10/29/16 07:18 10/29/16 07:18 Problem List - Problems (1) Nausea Assessment/Plan: iv prn zofran ivf Code(s): R11.0 - NAUSEA (2) CAD (coronary artery disease) Code(s): I25.10 - ATHSCL HEART DISEASE OF [place] CORONARY ARTERY W/O ANG PCTRS (3) Hypertension Assessment/Plan: on meds stable Code(s): I10 - ESSENTIAL (PRIMARY) HYPERTENSION (4) Hyponatremia Assessment/Plan: mild will fu Code(s): E87.1 - HYPO-OSMOLALITY AND HYPONATREMIA
[2016-10-29] MEDS ORDERED: ONDANSETRON 4 MG/2 ML VIAL IVPB PRN (17:28)
[2016-10-29] MEDS ORDERED: ZOLPIDEM TARTRATE 5 MG TABLET PO PRN (18:12)
[2016-10-29] MEDS ORDERED: EZETIMIBE 10 MG TABLET (FP) PO SCH (22:00)
[2016-10-29] MEDS ORDERED: ATORVASTATIN CA 10 MG TABLET (FP) PO SCH (22:00)
[2016-10-29] MEDS: risperiDONE 2 MG TABLET PO SCH (22:28)
[2016-10-30] MEDS: ASPIRIN 81 MG CHEWABLE TABLETS PO SCH (09:48)
[2016-10-30] MEDS: LISINOPRIL 10 MG TABLET (FP) PO SCH (09:51)
[2016-10-30] MEDS: ESCITALOPRAM OXALATE 20 MG TABLET (FP) PO SCH (09:51)
[2016-10-30] MEDS: CLOPIDOGREL BISULFATE 75 MG TABLET (FP) PO SCH (09:51)
[2016-10-30] MEDS: ALPRAZolam 0.25 MG TABLET PO SCH (09:55)
[2016-10-30] MEDS ORDERED: PT OWN MED DRAWER 7, Y5N ONE (09:55)
[2016-10-30] MEDS: risperiDONE 2 MG TABLET PO SCH (10:42)
[2016-10-30 14:09] VITALS: BP 122/69; PULSE 56; TEMP 98.1
--- NOTE | 2016-10-30 14:15 | DS ---
Physical Examination Vital Signs: Vital Signs Temperature 98.1 F 10/30/16 14:08 Pulse Rate 56 L 10/30/16 14:08 Respiratory Rate 18 10/30/16 14:08 Blood Pressure 122/69 10/30/16 14:08 O2 Sat by Pulse Oximetry (%) 93 L 10/30/16 06:24 Constitutional: Yes: No Distress HENT: Yes: Atraumatic Cardiovascular: Yes: Regular Rate and Rhythm Respiratory: Yes: CTA Bilaterally Gastrointestinal: Yes: Normal Bowel Sounds Extremities: Yes: WNL Peripheral Pulses WNL: Yes Neurological: Yes: Alert, Oriented Labs: CBC, BMP 10/29/16 07:18 10/29/16 07:18 Discharge Summary Reason For Visit: NAUSEA Current Active Problems Anxiety (Acute) Depression (Acute) Nausea (Acute) Condition: Stable - Instructions Referrals: Chandu Hogan MD [Primary Care Provider] - - Home Medications Comprehensive Discharge Medication List: Ambulatory Orders Clopidogrel Bisulfate [Plavix -] 75 mg PO DAILY 01/18/13 Aspirin [ASA -] 81 mg PO DAILY 04/29/14 Escitalopram Oxalate [Lexapro -] 30 mg PO DAILY 04/29/14 Alprazolam [Xanax] 1 mg PO BID 11/19/14 Bupropion HCl [Wellbutrin Xl -] 300 mg PO DAILY 06/14/15 Risperidone 2 mg PO BID 11/24/15 Zolpidem Tartrate [Ambien] 10 mg PO HS 11/25/15 Ondansetron HCl [Zofran] 4 mg PO Q8H PRN #10 tablet 10/27/16 Budesonide/Formeterol Fumarate [SYMBICORT 160/4.5mcg -] 1 inh PO BID 10/28/16 Lisinopril 10 mg PO DAILY 10/28/16 Ezetimibe/Simvastatin [Vytorin 10-20 mg Tablet] 0 tab PO HS 10/29/16 Fenofibrate Nanocrystallized [Tricor] 48 mg PO DAILY 10/29/16 Atorvastatin Ca [Lipitor] 10 mg PO HS tablet 10/30/16 Ezetimibe [Zetia -] 10 mg PO HS tablet 10/30/16 dc home tolerating dietno nause or diarhhea fu pmd psych 1 week
--- NOTE | 2016-10-31 08:38 | EKG ---
Test Reason : Blood Pressure : / mmHG Vent. Rate : 066 BPM Atrial Rate : 066 BPM P-R Int : 194 ms QRS Dur : 094 ms QT Int : 392 ms P-R-T Axes : 084 -29 -50 degrees QTc Int : 410 ms POOR DATA QUALITY, INTERPRETATION MAY BE ADVERSELY AFFECTED SINUS RHYTHM RSR' OR QR PATTERN IN V1 SUGGESTS RIGHT VENTRICULAR CONDUCTION DELAY INFERIOR INFARCT (CITED ON OR BEFORE 21-AUG-2016) ABNORMAL ECG WHEN COMPARED WITH ECG OF 27-OCT-2016 16:16, NO SIGNIFICANT CHANGE WAS FOUND Confirmed by SONAL ORTEGA MD ([id number]) on 10/31/2016 8:38:24 AM Referred By: RENAE SANCHEZ Confirmed By:SONAL ORTEGA MD
[2016-11-13 14:08] LABS: CK MB 4.3 ng/ml (0.3-4.0)
== END 2016-10-30 15:30 | disposition home or self-care (01) ==
LOC: FER 17:35 → FM/S 21:34
PROVIDERS: ADMIT Internal Medicine; ATTEND Internal Medicine
PROC: 3E033GC Introduction of Other Therapeutic Substance into Peripheral Vein, Percutaneous Approach (ICD-10-PCS; principal; 2016-10-28)
PROC: 3E0337Z Introduction of Electrolytic and Water Balance Substance into Peripheral Vein, Percutaneous Approach (ICD-10-PCS; 2016-10-28)
DX: R11.0 Nausea (principal); I10 Essential (primary) hypertension; I25.2 Old myocardial infarction; I25.10 Atherosclerotic heart disease of native coronary artery without angina pectoris; E78.5 Hyperlipidemia, unspecified; E87.1 Hypo-osmolality and hyponatremia; F41.9 Anxiety disorder, unspecified; F32.9 Major depressive disorder, single episode, unspecified; J44.9 Chronic obstructive pulmonary disease, unspecified; I71.4 Abdominal aortic aneurysm, without rupture; G31.84 Mild cognitive impairment of uncertain or unknown etiology; Z87.891 Personal history of nicotine dependence; Z95.5 Presence of coronary angioplasty implant and graft; Z79.82 Long term (current) use of aspirin
CPT/HCPCS: 36415; 71010-TC; 74176-TC; 80053; 81003; 81015; 82150; 82550; 82553; 83605; 83690; 83735; 84484; 85025; 85730; 87040; 87086; 93005; 99285-25; G0378

== ENCOUNTER 2017-02-17 12:20 | Emergency (ER) | payer OTHER, BC ==
[2017-02-17 12:40] LABS: BASOPHIL 0.1 % (0-2.0); EOSINOPHIL 1.6 % (0-4.5); MCH 32.2 pg (25.7-33.7); MCHC 34.4 g/dl (32.0-35.9); MEAN CELL VOLUME 93.6 fl (80-96); MEAN PLT VOLUME 6.7 fl (7.5-11.1); PLATELET COUNT 649 K/MM3 (134-434); RDW 12.7 % (11.9-15.9); WHITE BLOOD COUNT 9.2 K/mm3 (4.0-10.8)
[2017-02-17 12:44] VITALS: TEMP 98.4; BMI 31.3
--- NOTE | 2017-02-17 12:45 | PDOC ---
History of Present Illness - General Chief Complaint: Nausea Stated Complaint: NAUSEA Time Seen by Provider: 02/17/17 12:38 History Source: Patient Exam Limitations: Other (vague historian) - History of Present Illness Initial Comments: 71 yo M history AAA s/p stent in January, CAD s/p stent, HTN, HL, EtOH use presents with nausea and LLQ abd pain x1 day. He states he was watching football game yesterday, suspects he drank too much free water, as he has had similar symptoms in the past with hyponatremia. However, did not have the pain in the past (including with his AAA). He is unsure how it was detected, stating "my features reporter told me to have it fixed". No prior history of diverticulitis. He states he drank one beer today. Past History - Past Medical History Allergies/Adverse Reactions: Allergies Allergy/AdvReac Type Severity Reaction Status Date / Time No Known Allergies Allergy Verified 02/17/17 12:31 Home Medications: Ambulatory Orders Clopidogrel Bisulfate [Plavix -] 75 mg PO DAILY 01/18/13 Aspirin [ASA -] 81 mg PO DAILY 04/29/14 Escitalopram Oxalate [Lexapro -] 30 mg PO DAILY 04/29/14 Alprazolam [Xanax] 1 mg PO BID 11/19/14 Bupropion HCl [Wellbutrin Xl -] 300 mg PO DAILY 06/14/15 Risperidone 2 mg PO BID 11/24/15 Zolpidem Tartrate [Ambien] 10 mg PO HS 11/25/15 Ondansetron HCl [Zofran] 4 mg PO Q8H PRN #10 tablet 10/27/16 Budesonide/Formeterol Fumarate [SYMBICORT 160/4.5mcg -] 1 inh PO BID 10/28/16 Lisinopril 10 mg PO DAILY 10/28/16 Fenofibrate Nanocrystallized [Tricor] 48 mg PO DAILY 10/29/16 Atorvastatin Ca [Lipitor] 10 mg PO HS tablet 10/30/16 Ezetimibe [Zetia -] 10 mg PO HS tablet 10/30/16 Anemia: No Asthma: No Cancer: No Cardiac Disorders: Yes (cardiac [id number], history of [place] 2005) CVA: No COPD: Yes CHF: No Dementia: (FORGETFUL) Diabetes: No GI Disorders: Yes (HEARTBURN) Disorders: No HTN: Yes Hypercholesterolemia: Yes Liver Disease: No Psychiatric Problems: Yes (ANXIETY DEPRESSION) Seizures: No Thyroid Disease: No - Surgical History Abdominal Surgery: Yes (AAA 02/03/2017) Appendectomy: No Cardiac Surgery: Yes (cardiac stent 2005) Cholecystectomy: No Lung Surgery: No Neurologic Surgery: No Orthopedic Surgery: No - Suicide/Smoking/Psychosocial Hx Smoking Status: No Smoking History: Former smoker Have you smoked in the past 12 months: No Number of Cigarettes Smoked Daily: 0 If you are a former smoker, when did you quit?: 2005 Information on smoking cessation initiated: No Hx Alcohol Use: Yes Drug/Substance Use Hx: No Substance Use Type: Alcohol Hx Substance Use Treatment: Yes Review of Systems - Review of Systems Able to Perform ROS?: Yes Comments:: GENERAL/CONSTITUTIONAL: No fever or chills. No weakness. HEAD, EYES, EARS, NOSE AND THROAT: No change in vision. No ear pain or discharge. No sore throat. CARDIOVASCULAR: No chest pain or shortness of breath. RESPIRATORY: No cough, wheezing, or hemoptysis. GASTROINTESTINAL: +Nausea. No vomiting, diarrhea or constipation. GENITOURINARY: No dysuria, frequency, or change in urination. MUSCULOSKELETAL: No joint or muscle swelling or pain. No neck or back pain. SKIN: No rash NEUROLOGIC: No headache, vertigo, loss of consciousness, or change in strength/ sensation. ENDOCRINE: No increased thirst. No abnormal weight change. HEMATOLOGIC/LYMPHATIC: No anemia, easy bleeding, or history of blood clots. ALLERGIC/IMMUNOLOGIC: No hives or skin allergy. *Physical Exam - Vital Signs Last Vital Signs Temp Pulse Resp BP Pulse Ox 98.4 F 68 18 116/66 95 02/17/17 12:23 02/17/17 12:23 02/17/17 12:23 02/17/17 12:23 02/17/17 12:23 - Physical Exam Comments: GENERAL: Awake, alert, and fully oriented, in no acute distress HEAD: No signs of trauma EYES: PERRLA, EOMI, sclera anicteric, conjunctiva clear ENT: Auricles normal inspection, hearing grossly normal, nares patent, oropharynx clear without exudates. Moist mucosa NECK: Normal ROM, supple, no lymphadenopathy, JVD, or masses LUNGS: Breath sounds equal, clear to auscultation bilaterally. No wheezes, and no crackles HEART: Regular rate and rhythm, normal S1 and S2, no murmurs, rubs or gallops ABDOMEN: Soft, +LLQ tenderness, normoactive bowel sounds. No guarding, no rebound. No masses EXTREMITIES: Normal range of motion, no edema. No clubbing or cyanosis. No cords , erythema, or tenderness NEUROLOGICAL: Cranial nerves II through XII grossly intact. Normal speech, normal gait SKIN: Warm, Dry, normal turgor, no rashes or lesions noted. ED Treatment Course - LABORATORY CBC & Chemistry Diagram: 02/17/17 12:31 02/17/17 12:31 Medical Decision Making - Medical Decision Making 02/17/17 14:54 Labs reviewed- mild hyponatremia. CT no acute findings. Patient is afebrile, reporting that he feels much better. Stable for DC home. *DC/Admit/Observation/Transfer Diagnosis at time of Disposition: Nausea - Discharge Dispostion Disposition: HOME Condition at time of disposition: Improved Admit: No - Referrals Referrals: Chandu Hogan MD [Primary Care Provider] - - Patient Instructions Printed Discharge Instructions: DI for Nausea -- Adult
[2017-02-17 12:59] LABS: ALBUMIN 3.5 g/dl (3.5-5.0); ALK PHOS 71 U/L (32-92); ANION GAP 10 (8-16); BILIRUBIN,TOTAL 0.4 mg/dl (0.2-1.0); CALCIUM 9.6 mg/dl (8.4-10.2); CO2 23 mmol/L (22-28); CPK 75 IU/L (39-308); CREATININE 1.4 mg/dl (0.6-1.3); GLUCOSE,RANDOM 117 mg/dl (74-106); SGOT/AST 20 U/L (10-42); SGPT/ALT 21 U/L (10-40); TOT PROT 6.5 g/dl (6.4-8.3)
[2017-02-17 13:20] VITALS: BP 148/74; PULSE 60
[2017-02-17] MEDS ORDERED: ONDANSETRON 4 MG/2 ML VIAL IVPUSH ONE (13:25)
[2017-02-17 13:38] LABS: URINE APPEARANCE Clear; URINE BILIRUBIN Negative (NEGATIVE); URINE GLUCOSE (UA) Negative (NEGATIVE); URINE KETONE Negative (NEGATIVE); URINE LEUK ESTERASE Negative (NEGATIVE); URINE NITRITE Negative (NEGATIVE); URINE PROTEIN Negative (NEGATIVE); URINE UROBILINOGEN 0.2 (0.2-1.0)
[2017-02-17 13:39] LABS: URINE BACTERIA FEW /hpf (NEGATIVE); URINE BLOOD Trace-lysed (NEGATIVE); URINE COLOR YELLOW; URINE RBC 0-3 /hpf (0-3); URINE WBC 0-3 /hpf (3-5)
[2017-02-17] MEDS ORDERED: ONDANSETRON 4 MG/2 ML VIAL ONE (13:52)
[2017-02-17 14:36] LABS: TROPONIN I (DFP) < 0.03 ng/ml (0.03-0.50)
--- NOTE | 2017-02-18 19:35 | EKG ---
Test Reason : Blood Pressure : / mmHG Vent. Rate : 070 BPM Atrial Rate : 070 BPM P-R Int : 196 ms QRS Dur : 094 ms QT Int : 400 ms P-R-T Axes : 075 -21 034 degrees QTc Int : 432 ms SINUS RHYTHM WITH OCCASIONAL PREMATURE VENTRICULAR COMPLEXES INFERIOR INFARCT (CITED ON OR BEFORE BASELINE ARTIFACT ABNORMAL ECG WHEN COMPARED WITH ECG OF 28-OCT-2016 18:14, PREMATURE VENTRICULAR COMPLEXES ARE NOW PRESENT NON-SPECIFIC CHANGE IN ST SEGMENT IN INFERIOR LEADS T WAVE INVERSION NO LONGER EVIDENT IN INFERIOR LEADS CLINICAL CORRELATION IS RECOMMENDED Confirmed by NAVIN RAVI MD ([id number]) on 02/18/2017 7:35:38 PM Referred By: AMY Confirmed By:NAVIN RAVI MD
== END 2017-02-17 15:29 | disposition home or self-care (01) ==
LOC: SUPCPDRO 12:20 → FER 12:20
DX: R11.0 Nausea (principal); I25.10 Atherosclerotic heart disease of native coronary artery without angina pectoris; Z95.5 Presence of coronary angioplasty implant and graft; I10 Essential (primary) hypertension; E78.5 Hyperlipidemia, unspecified; Z87.891 Personal history of nicotine dependence
CPT/HCPCS: 36415; 74176-TC; 80053; 81003; 81015; 84484; 85025; 93005; 99284-25

== ENCOUNTER 2017-02-18 06:13 | Emergency (ER) | payer OTHER, BC ==
[2017-02-18] MEDS ORDERED: HEMOQUE TEST 1 EACH EACH ONE (06:25)
--- NOTE | 2017-02-18 06:26 | PDOC ---
History of Present Illness - General Chief Complaint: Nausea Stated Complaint: MALAISE Time Seen by Provider: 02/18/17 06:25 - History of Present Illness Initial Comments: 02/18/17 06:35 This 71-year-old man with a history of hypertension, DM, CAD (S/P stent placement), AAA (repaired [facility] 02/03), depression, COPD was seen here yesterday with nausea and vomiting along with abdominal pain. He presents again with nausea and a few episodes of vomiting. Patient states that he felt nauseated as soon as he returned home yesterday. He drank some water while he was home; he had nothing else by mouth and vomited several times during the night(most recently 4 AM). He had "one or 2" episodes of watery stool yesterday. No blood seen in BM. He denies abdominal pain now. He has no chest pain/ shortness of breath.. No fever or chills Patient states that he is taking medications as prescribed. Past History - Past Medical History Allergies/Adverse Reactions: Allergies Allergy/AdvReac Type Severity Reaction Status Date / Time No Known Allergies Allergy Verified 02/17/17 12:31 Home Medications: Ambulatory Orders Clopidogrel Bisulfate [Plavix -] 75 mg PO DAILY 01/18/13 Aspirin [ASA -] 81 mg PO DAILY 04/29/14 Escitalopram Oxalate [Lexapro -] 30 mg PO DAILY 04/29/14 Alprazolam [Xanax] 1 mg PO BID 11/19/14 Bupropion HCl [Wellbutrin Xl -] 300 mg PO DAILY 06/14/15 Risperidone 2 mg PO BID 11/24/15 Zolpidem Tartrate [Ambien] 10 mg PO HS 11/25/15 Budesonide/Formeterol Fumarate [SYMBICORT 160/4.5mcg -] 1 inh PO BID 10/28/16 Lisinopril 10 mg PO DAILY 10/28/16 Fenofibrate Nanocrystallized [Tricor] 48 mg PO DAILY 10/29/16 Atorvastatin Ca [Lipitor] 10 mg PO HS tablet 10/30/16 Ezetimibe [Zetia -] 10 mg PO HS tablet 10/30/16 Ondansetron HCl [Zofran] 4 mg PO Q8H PRN #10 tablet 02/18/17 Anemia: No Asthma: No Cancer: No Cardiac Disorders: Yes (cardiac [id number], history of [place] 2005) CVA: No COPD: Yes CHF: No Dementia: (FORGETFUL) Diabetes: No GI Disorders: Yes (HEARTBURN) Disorders: No HTN: Yes Hypercholesterolemia: Yes Liver Disease: No Psychiatric Problems: Yes (ANXIETY DEPRESSION) Seizures: No Thyroid Disease: No - Surgical History Abdominal Surgery: Yes (AAA 02/03/2017) Appendectomy: No Cardiac Surgery: Yes (cardiac stent 2005) Cholecystectomy: No Lung Surgery: No Neurologic Surgery: No Orthopedic Surgery: No - Suicide/Smoking/Psychosocial Hx Smoking Status: No Smoking History: Former smoker Have you smoked in the past 12 months: No Number of Cigarettes Smoked Daily: 0 If you are a former smoker, when did you quit?: 2006 Hx Alcohol Use: Yes Drug/Substance Use Hx: No Substance Use Type: Alcohol Hx Substance Use Treatment: Yes Abd/GI Specific PMHX - Complaint Specific PMHX Colitis: No Diverticulitis: No GERD: No Review of Systems - Review of Systems Able to Perform ROS?: Yes Comments:: 12 point review of systems is negative except for what is noted in the history of present illness *Physical Exam - Physical Exam Comments: GENERAL: Adult male, alert and oriented, in no acute distress HEAD: Normal with no signs of trauma. EYES: PERRLA, EOMI, sclera anicteric, conjunctiva clear. ENT: Ears normal, nares patent, oropharynx clear without exudates. Moist mucous membranes. Poor dentition ; repetitive mouth movements NECK: Normal range of motion, supple without lymphadenopathy, JVD, or masses. LUNGS: Breath sounds equal, clear to auscultation bilaterally. No wheezes, and no crackles. HEART:Regular rate and rhythm, normal S1 and S2 without murmur, rub or gallop. ABDOMEN:.normal bowel sounds No guarding,tenderness or rebound.No masses No distention. EXTREMITIES: Normal range of motion, no edema. No clubbing or cyanosis. No erythema, or tenderness. NEUROLOGICAL: Cranial nerves II through XII grossly intact. Mild dysarthria. No focal neurological deficits. Moving all 4 extremities equally MUSCULOSKELETAL: Back non-tender to palpation, no CVA tenderness SKIN: Warm, Dry, normal turgor, no rashes or lesions noted. ED Treatment Course - LABORATORY CBC & Chemistry Diagram: 02/18/17 06:40 02/18/17 06:40 Progress Note - Progress Note Progress Note: This 71-year-old man with multiple medical problems, seen here yesterday with nausea/vomiting/abdominal pain, presents with recurrent nausea and vomiting. He no longer has abdominal pain; he had 2 episodes of watery stool during the day yesterday. Exam as noted: No abdominal tenderness present. CBC/chemistry profile/cardiac enzymes drawn. Zofran 4 mg IV given. Medical Decision Making - Medical Decision Making 02/18/17 07:10 Case signed out to incoming physician at end of shift. *DC/Admit/Observation/Transfer Diagnosis at time of Disposition: Nausea, Hyponatremia - Discharge Dispostion Disposition: HOME Condition at time of disposition: Stable - Prescriptions Prescriptions: Ondansetron HCl [Zofran] 4 mg PO Q8H PRN #10 tablet PRN Reason: Nausea - Referrals Referrals: Chandu Hogan MD [Primary Care Provider] - - Patient Instructions Printed Discharge Instructions: DI for Hyponatremia, DI for Nausea -- Adult
[2017-02-18 06:32] VITALS: BP 137/97; PULSE 88; TEMP 98.1; BMI 31.3
[2017-02-18] MEDS ORDERED: ONDANSETRON 4 MG/2 ML VIAL ONE ×2 (06:44→08:08)
[2017-02-18] MEDS ORDERED: ONDANSETRON 4 MG/2 ML VIAL IVPUSH ONE ×2 (06:44→08:05)
[2017-02-18 07:01] LABS: BASOPHIL 0.4 % (0-2.0); EOSINOPHIL 1.2 % (0-4.5); MCH 31.3 pg (25.7-33.7); MCHC 33.5 g/dl (32.0-35.9); MEAN CELL VOLUME 93.3 fl (80-96); MEAN PLT VOLUME 6.5 fl (7.5-11.1); NEUTROPHILS 80.2 % (42.8-82.8); PLATELET COUNT 641 K/MM3 (134-434); RDW 13.6 % (11.9-15.9); WHITE BLOOD COUNT 9.7 K/mm3 (4.0-10.0)
--- NOTE | 2017-02-18 07:20 | PDOC ---
*Physical Exam - Vital Signs Last Vital Signs Temp Pulse Resp BP Pulse Ox 98.1 F 88 20 137/97 93 L 02/18/17 06:29 02/18/17 06:29 02/18/17 06:29 02/18/17 06:29 02/18/17 06:29 ED Treatment Course - LABORATORY CBC & Chemistry Diagram: 02/18/17 06:40 02/18/17 06:40 - ADDITIONAL ORDERS Additional order review: Laboratory Results 02/18/17 06:28 POC Glucometer [id number] 02/18/17 02/18/17 06:40 06:28 RBC 3.56 L MCV 93.3 MCHC 33.5 RDW 13.6 MPV 6.5 L Neutrophils % 80.2 Lymphocytes % 10.1 Monocytes % 8.1 Eosinophils % 1.2 Basophils % 0.4 POC Glucometer [id number] - Medications Given in the ED: ED Medications Discontinued Medications Generic Name Dose Route Start Last Admin Trade Name Freq PRN Reason Stop Dose Admin Ondansetron HCl 4 mg 02/18/17 06:44 02/18/17 06:47 Zofran Injection IVPUSH 02/18/17 06:45 4 mg ONCE ONE Administration Medical Decision Making - Medical Decision Making 02/18/17 09:39 Pt tolerated a tray of clears. No vomiting in the ED. Rx for zofran sent to [facility] as per patient request. Stable for DC home. *DC/Admit/Observation/Transfer Diagnosis at time of Disposition: Nausea, Hyponatremia - Discharge Dispostion Disposition: HOME Condition at time of disposition: Stable Admit: No - Prescriptions Prescriptions: Ondansetron HCl [Zofran] 4 mg PO Q8H PRN #10 tablet PRN Reason: Nausea - Referrals Referrals: Chandu Hogan MD [Primary Care Provider] - - Patient Instructions Printed Discharge Instructions: DI for Hyponatremia, DI for Nausea -- Adult
[2017-02-18 07:24] LABS: ALBUMIN 3.7 g/dl (3.4-5.0); ALK PHOS 95 U/L (45-117); ANION GAP 11 (8-16); BILIRUBIN,TOTAL 0.4 mg/dL (0.2-1.0); CALCIUM 9.9 mg/dL (8.5-10.1); CO2 23 mmol/L (21-32); CREATININE 1.4 mg/dL (0.7-1.3); GLUCOSE,RANDOM 122 mg/dL (74-106); SGOT/AST 19 U/L (15-37); SGPT/ALT 27 U/L (12-78); TOT PROT 7.4 g/dl (6.4-8.2)
[2017-02-18 07:26] LABS: CPK 94 IU/L (39-308)
[2017-02-18 07:27] LABS: TROPONIN I < 0.02 ng/ml (0.00-0.05)
== END 2017-02-18 09:40 | disposition home or self-care (01) ==
LOC: FER 06:13
PROC: 3E033GC Introduction of Other Therapeutic Substance into Peripheral Vein, Percutaneous Approach (ICD-10-PCS; principal; 2017-02-18)
DX: E87.1 Hypo-osmolality and hyponatremia (principal); R11.0 Nausea; J44.9 Chronic obstructive pulmonary disease, unspecified; I10 Essential (primary) hypertension; E78.00 Pure hypercholesterolemia, unspecified; F41.8 Other specified anxiety disorders; Z87.891 Personal history of nicotine dependence; F03.90 Unspecified dementia, unspecified severity, without behavioral disturbance, psychotic disturbance, mood disturbance, and anxiety; Z95.5 Presence of coronary angioplasty implant and graft
CPT/HCPCS: 36415; 80053; 84484; 85025; 96374; 96376; 99283-25

== ENCOUNTER 2017-02-19 04:54 | Emergency (ER) | payer OTHER, BC ==
[2017-02-19] MEDS ORDERED: SODIUM CHLORIDE 0.9% 500 ML INFUS.BAG IV ONE (05:00)
[2017-02-19] MEDS ORDERED: FAMOTIDINE 20 MG/50 ML IVPB 50 ML IVPB ONE ×2 (05:01→05:06)
[2017-02-19] MEDS ORDERED: ONDANSETRON 4 MG/2 ML VIAL IVPB ONE (05:01)
[2017-02-19] MEDS ORDERED: ONDANSETRON 4 MG/2 ML VIAL ONE (05:06)
--- NOTE | 2017-02-19 05:11 | PDOC ---
History of Present Illness - General Chief Complaint: Nausea Stated Complaint: NAUSEA; pt smells of alcohol. Known alcohol user; pt denies alcohol use History Source: Patient, Parent(s) Exam Limitations: No Limitations - History of Present Illness Timing/Duration: unsure Past History - Travel Traveled outside of the country in the last 30 days: No Close contact w/someone who was outside of country & ill: No - Past Medical History Allergies/Adverse Reactions: Allergies Allergy/AdvReac Type Severity Reaction Status Date / Time No Known Allergies Allergy Verified 02/17/17 12:31 Home Medications: Ambulatory Orders Clopidogrel Bisulfate [Plavix -] 75 mg PO DAILY 01/18/13 Aspirin [ASA -] 81 mg PO DAILY 04/29/14 Escitalopram Oxalate [Lexapro -] 30 mg PO DAILY 04/29/14 Alprazolam [Xanax] 1 mg PO BID 11/19/14 Bupropion HCl [Wellbutrin Xl -] 300 mg PO DAILY 06/14/15 Risperidone 2 mg PO BID 11/24/15 Zolpidem Tartrate [Ambien] 10 mg PO HS 11/25/15 Budesonide/Formeterol Fumarate [SYMBICORT 160/4.5mcg -] 1 inh PO BID 10/28/16 Lisinopril 10 mg PO DAILY 10/28/16 Fenofibrate Nanocrystallized [Tricor] 48 mg PO DAILY 10/29/16 Atorvastatin Ca [Lipitor] 10 mg PO HS tablet 10/30/16 Ezetimibe [Zetia -] 10 mg PO HS tablet 10/30/16 Ondansetron HCl [Zofran] 4 mg PO Q8H PRN #10 tablet 02/18/17 Anemia: No Asthma: No Cancer: No Cardiac Disorders: Yes (cardiac [id number], history of [place] 2005) CVA: No COPD: Yes CHF: No Dementia: (FORGETFUL) Diabetes: No GI Disorders: Yes (HEARTBURN) Disorders: No HTN: Yes Hypercholesterolemia: Yes Liver Disease: No Psychiatric Problems: Yes (ANXIETY DEPRESSION) Seizures: No Thyroid Disease: No - Surgical History Abdominal Surgery: Yes (AAA 02/03/2017) Appendectomy: No Cardiac Surgery: Yes (cardiac stent 2005) Cholecystectomy: No Lung Surgery: No Neurologic Surgery: No Orthopedic Surgery: No - Suicide/Smoking/Psychosocial Hx Smoking Status: No Smoking History: Former smoker Have you smoked in the past 12 months: No Number of Cigarettes Smoked Daily: 0 If you are a former smoker, when did you quit?: 2006 Hx Alcohol Use: Yes Drug/Substance Use Hx: No Substance Use Type: Alcohol Hx Substance Use Treatment: Yes Review of Systems - Review of Systems HEENTM: No: Symptoms Reported, See HPI, Eye Pain, Blurred Vision, Tearing, Recent change in vision, Double Vision, Cataracts, Ear Pain, Ocular Prothesis, Ear Discharge, Nose Pain, Nose Congestion, Tinnitus, Nose Bleeding, Hearing Loss , Throat Pain, Throat Swelling, Mouth Pain, Dental Problems, Difficulty Swallowing, Mouth Swelling, Other Respiratory: No: Symptoms reported, See HPI, Cough, Orthopnea, Shortness of Breath, SOB with Exertion, SOB at Rest, Stridor, Wheezing, Productive cough, Hemoptysis, Other Cardiac (ROS): No: Symptoms Reported, See HPI, Chest Pain, Edema, Irregular Heart Rate, Lightheadedness, Palpitations, Syncope, Chest Tightness, Other ABD/GI: Yes: Nausea, Poor Appetite, Vomiting. No: Symptoms Reported, See HPI, Abdominal Distended, Abd. Pain w/ defecation, Blood Streaked Bowels, Constipated , Diarrhea, Difficulty Swallowing, Poor Fluid Intake, Rectal Bleeding, Indigestion, Abdominal cramping, Tarry Stools, Other : No: Symptoms Reported, See HPI, Burning, Dysuria, Discharge, Frequency, Flank Pain, Hematuria, Incontinence, Pain, Urgency, Testicular Mass, Testicular Swelling, Lesions, Testicular Pain, Other Musculoskeletal: No: Symptoms Reported, See HPI, Back Pain, Gout, Joint Pain, Joint Swelling, Muscle Pain, Muscle Weakness, Neck Pain, Joint Stiffness, Other Integumentary: Yes: Pallor, Sweating. No: Symptoms Reported, See HPI, Bruising , Change in Color, Change in Hair/Nails, Dryness, Erythema, Flushing, Lesions, Lumps, Pruritus, Rash, Other Neurological: Yes: Other (extrapyramidal symptoms) *Physical Exam - Physical Exam General Appearance: Yes: Disheveled, Mild Distress, Alcohol on Breath HEENT: positive: EOMI, Normal Voice, Pharynx Normal Neck: positive: Trachea midline, Supple Respiratory/Chest: positive: Lungs Clear, Normal Breath Sounds Cardiovascular: positive: Regular Rhythm, Regular Rate, S1, S2 Gastrointestinal/Abdominal: positive: Normal Bowel Sounds, Flat, Soft Musculoskeletal: positive: Normal Inspection, CVA Tenderness Integumentary: positive: Warm, Pale, Clammy, Diaphoresis, Moist Neurologic: positive: Fully Oriented, Motor Strength 5/5, Other (involuntary movements of the tongue and mouth) Medical Decision Making - Medical Decision Making 02/19/17 05:17 Pt comes with nausea. Smells of alcohol; sweaty, unkempt. He was here 2 times in the past 2 days. Today he is willing to go to detox. Pt will be hydrated in the ER and given pepcid and zofran. Pt will nt get repeat labs in the ER. Pt with a known hx of HTN, CAD, AAA repair in Jan of this year. 02/19/17 05:23 Pt will be discahrged to [address] [place] [address] at 6am. They will intake him at 8am, as he has never been there in the past. *DC/Admit/Observation/Transfer Diagnosis at time of Disposition: Nausea and vomiting, Alcohol use - Discharge Dispostion Disposition: HOME Condition at time of disposition: Stable Admit: No - Patient Instructions Printed Discharge Instructions: Alcohol Use Disorder
[2017-02-19 05:13] VITALS: BP 158/86; PULSE 83; TEMP 98.2; BMI 31.3
== END 2017-02-19 06:18 | disposition home or self-care (01) ==
LOC: FER 04:54
PROC: 3E0337Z Introduction of Electrolytic and Water Balance Substance into Peripheral Vein, Percutaneous Approach (ICD-10-PCS; principal; 2017-02-19)
PROC: 3E033GC Introduction of Other Therapeutic Substance into Peripheral Vein, Percutaneous Approach (ICD-10-PCS; 2017-02-19)
DX: F10.99 Alcohol use, unspecified with unspecified alcohol-induced disorder (principal); F41.8 Other specified anxiety disorders; Z95.5 Presence of coronary angioplasty implant and graft; Z87.891 Personal history of nicotine dependence; I10 Essential (primary) hypertension; J44.9 Chronic obstructive pulmonary disease, unspecified
CPT/HCPCS: 99282-25

== ENCOUNTER 2017-04-23 07:05 | Inpatient (IN) | payer OTHER, BC ==
--- NOTE | 2017-04-23 07:22 | PDOC ---
History of Present Illness - General Chief Complaint: Cold Symptoms Stated Complaint: COLD AND COGH Time Seen by Provider: 04/23/17 07:22 History Source: Patient - History of Present Illness Initial Comments: 04/23/17 07:35 Pt presents to the ED complaining of wheezing, shortness of breath and productive cough for the last 5 days. Denies fever, nausea or vomiting or chest pain. Patient states that he had an aortic stent repair on Monday and was released on Monday. Complains of mild shortness of breath that is worse with exertion. History of asthma, states that this feels like his asthma exacerbations and that his symptoms are relieved by albuterol. Denies leg swelling or weight gain. Past History - Past Medical History Allergies/Adverse Reactions: Allergies Allergy/AdvReac Type Severity Reaction Status Date / Time No Known Allergies Allergy Verified 04/23/17 07:18 Home Medications: Ambulatory Orders Clopidogrel Bisulfate [Plavix -] 75 mg PO DAILY 01/18/13 Aspirin [ASA -] 81 mg PO DAILY 04/29/14 Escitalopram Oxalate [Lexapro -] 30 mg PO DAILY 04/29/14 Alprazolam [Xanax] 1 mg PO BID 11/19/14 Bupropion HCl [Wellbutrin Xl -] 300 mg PO DAILY 06/14/15 Risperidone 2 mg PO BID 11/24/15 Zolpidem Tartrate [Ambien] 10 mg PO HS 11/25/15 Budesonide/Formeterol Fumarate [SYMBICORT 160/4.5mcg -] 1 inh PO BID 10/28/16 Lisinopril 10 mg PO DAILY 10/28/16 Fenofibrate Nanocrystallized [Tricor] 48 mg PO DAILY 10/29/16 Atorvastatin Ca [Lipitor] 10 mg PO HS tablet 10/30/16 Ezetimibe [Zetia -] 10 mg PO HS tablet 10/30/16 Ondansetron HCl [Zofran] 4 mg PO Q8H PRN #10 tablet 02/18/17 Clopidogrel Bisulfate [Plavix -] 75 mg PO DAILY 04/23/17 Anemia: No Asthma: No Cancer: No Cardiac Disorders: Yes (cardiac [id number], history of KS 2005) CVA: No COPD: Yes CHF: No DVT: No Dementia: (FORGETFUL) Diabetes: No GI Disorders: Yes (HEARTBURN) Disorders: No HTN: Yes Hypercholesterolemia: Yes Liver Disease: No Psychiatric Problems: Yes (ANXIETY DEPRESSION) Seizures: No Thyroid Disease: No - Surgical History Abdominal Surgery: Yes (AAA 02/03/2017) Appendectomy: No Cardiac Surgery: Yes (cardiac stent 2005 & 04/2017) Cholecystectomy: No Lung Surgery: No Neurologic Surgery: No Orthopedic Surgery: No - Suicide/Smoking/Psychosocial Hx Smoking Status: No Smoking History: Former smoker Have you smoked in the past 12 months: No Number of Cigarettes Smoked Daily: 0 If you are a former smoker, when did you quit?: 2005 Information on smoking cessation initiated: No Hx Alcohol Use: Yes Drug/Substance Use Hx: No Substance Use Type: Alcohol Hx Substance Use Treatment: Yes Review of Systems - Review of Systems Constitutional: No: Symptoms Reported, See HPI, Chills, Diaphoresis, Fever, Loss of Appetite, Malaise, Night Sweats, Weakness, Weight Stable, Unintentional Wgt. Loss, Unexplained wgt Loss, Other HEENTM: No: Symptoms Reported, See HPI, Eye Pain, Blurred Vision, Tearing, Recent change in vision, Double Vision, Cataracts, Ear Pain, Ocular Prothesis, Ear Discharge, Nose Pain, Nose Congestion, Tinnitus, Nose Bleeding, Hearing Loss , Throat Pain, Throat Swelling, Mouth Pain, Dental Problems, Difficulty Swallowing, Mouth Swelling, Other Respiratory: Yes: Cough, Shortness of Breath, Wheezing, Productive cough. No: Symptoms reported, See HPI, Orthopnea, SOB with Exertion, SOB at Rest, Stridor, Hemoptysis, Other Cardiac (ROS): No: Symptoms Reported, See HPI, Chest Pain, Edema, Irregular Heart Rate, Lightheadedness, Palpitations, Syncope, Chest Tightness, Other ABD/GI: No: Symptoms Reported, See HPI, Abdominal Distended, Abd. Pain w/ defecation, Blood Streaked Bowels, Constipated, Diarrhea, Difficulty Swallowing , Nausea, Poor Appetite, Poor Fluid Intake, Rectal Bleeding, Vomiting, Indigestion, Abdominal cramping, Tarry Stools, Other Musculoskeletal: No: Symptoms Reported, See HPI, Back Pain, Gout, Joint Pain, Joint Swelling, Muscle Pain, Muscle Weakness, Neck Pain, Joint Stiffness, Other *Physical Exam - Physical Exam General Appearance: Yes: Nourished, Appropriately Dressed. No: Apparent Distress, Disheveled, Mild Distress, Moderate Distress, Severe Distress, Alcohol on Breath, Intoxicated, Cachetic, Obese, Thin, Other HEENT: positive: Normal ENT Inspection, Normal Voice Neck: positive: Trachea midline, Supple Respiratory/Chest: positive: Lungs Clear, Wheezing (wheezing at the bases bilaterally). negative: Chest Tender, Normal Breath Sounds, Respiratory Distress, Accessory Muscle Use, Labored Respiration, Rapid RR, Decreased Breath Sounds, Paradoxal Breathing, Crackles, Rales, Rhonchi, Stridor, Hyperresonant, Dullness, Plerual Rub, Other Cardiovascular: positive: Regular Rhythm, Regular Rate. negative: S1, S2, Edema , JVD, Murmur, Bradycardia, Tachycardia, Diastolic Murmur, Systolic Murmur, Gallop/S3, Gallop/S4, Irregularly Irregular, Irregular, Other Gastrointestinal/Abdominal: positive: Flat, Soft Musculoskeletal: positive: Normal Inspection Extremity: positive: Normal Inspection, Normal Range of Motion Integumentary: positive: Normal Color Neurologic: positive: Fully Oriented, Alert ED Treatment Course - LABORATORY CBC & Chemistry Diagram: 04/23/17 08:35 04/23/17 08:35 Medical Decision Making - Medical Decision Making 04/23/17 07:55 Pt presents to the ED complaining of wheezing and shortness of breath consistent with normal asthma exacerbation. Extensive past medical history as described above. Denies chest pain, but given recent history of aortic stent repair, will check labs and CXR. Will treat with nebs and steroids and reassess. Will consider admission if not improved. 04/23/17 11:45 patient is not improved after nebs x 4. Peak flow is 200. Will admit for observation for COPD exacerbation. 04/23/17 12:10 Spoke to physician who is control clerk auditing for patient's vascular surgeon Dr. Stinson. He agrees based on my history and physical that the patient is safe for admission to [facility]. *DC/Admit/Observation/Transfer Diagnosis at time of Disposition: COPD exacerbation - Discharge Dispostion Condition at time of disposition: Good Admit: Yes - Referrals - Patient Instructions - Post Discharge Activity
[2017-04-23 07:25] VITALS: BMI 29.7
[2017-04-23] MEDS ORDERED: predniSONE 20 MG TABLET (UD) PO ONE (07:34)
[2017-04-23] MEDS: ALBUTEROL SO4 2.5/IPRATROPIUM 0.5 INH SOL 3 ML VIAL.NEB. NEB SCH ×6 (08:08→21:24)
[2017-04-23 08:57] LABS: BASOPHIL 0.2 % (0-2.0); EOSINOPHIL 1.9 % (0-4.5); MCH 31.2 pg (25.7-33.7); MCHC 33.3 g/dl (32.0-35.9); MEAN CELL VOLUME 93.7 fl (80-96); MEAN PLT VOLUME 7.5 fl (7.5-11.1); NEUTROPHILS 79.9 % (42.8-82.8); PLATELET COUNT 331 K/MM3 (134-434); RDW 13.3 % (11.9-15.9); WHITE BLOOD COUNT 8.4 K/mm3 (4.0-10.8)
[2017-04-23 09:39] LABS: TROPONIN I (DFP) < 0.03 ng/ml (0.03-0.50)
[2017-04-23 09:54] LABS: CPK 106 IU/L (39-308)
[2017-04-23 09:55] LABS: ALBUMIN 3.6 g/dl (3.5-5.0); ALK PHOS 74 U/L (32-92); ANION GAP 8 (8-16); BILIRUBIN,TOTAL 0.4 mg/dl (0.2-1.0); CALCIUM 9.1 mg/dl (8.4-10.2); CO2 24 mmol/L (22-28); CREATININE 1.5 mg/dl (0.6-1.3); GLUCOSE,RANDOM 118 mg/dl (74-106); SGOT/AST 17 U/L (10-42); SGPT/ALT 12 U/L (10-40); TOT PROT 6.2 g/dl (6.4-8.3)
--- NOTE | 2017-04-23 13:54 | HP ---
CHIEF COMPLAINT: Cough PCP: Dr. Hogan HISTORY OF PRESENT ILLNESS: This is a 71 year old male with a history of HTN, anxiety/depression, CAD s/p stent x 1 approx 10 yrs ago, COPD, and endovascular repair of AAA approximately one week ago at [facility] who presented to the ED today complaining of 5 days of cough productive of yellow sputum and wheezing/SOB. ER course was notable for: (1) CXR: no infiltrate (2) Persistent wheezing/SOB after nebs x 4 and prednisone, NC=304 (3) Cr 1.5, baseline Recent Travel: None PAST MEDICAL HISTORY: As above PAST SURGICAL HISTORY: Cardiac stent, recent aortic stent Social History: Lives alone Smoking: Former smoker (1.5 ppd x 20 yrs) Alcohol: None Drugs: None Family History: Non-contributory to this admission Allergies No Known Allergies Allergy (Verified 04/23/17 07:18) HOME MEDICATIONS: Home Medications Medication Instructions Recorded Clopidogrel Bisulfate [Plavix -] 75 mg PO DAILY 01/18/13 Aspirin [ASA -] 81 mg PO DAILY 04/29/14 Escitalopram Oxalate [Lexapro -] 30 mg PO DAILY 04/29/14 Alprazolam [Xanax] 1 mg PO BID 11/19/14 Bupropion HCl [Wellbutrin Xl -] 300 mg PO DAILY 06/14/15 Risperidone 2 mg PO BID 11/24/15 Zolpidem Tartrate [Ambien] 10 mg PO HS 11/25/15 Budesonide/Formeterol Fumarate 1 inh PO BID 10/28/16 [SYMBICORT 160/4.5mcg -] Lisinopril 10 mg PO DAILY 10/28/16 Fenofibrate Nanocrystallized 48 mg PO DAILY 10/29/16 [Tricor] Atorvastatin Ca [Lipitor] 10 mg PO HS tablet 10/30/16 Ezetimibe [Zetia -] 10 mg PO HS tablet 10/30/16 Ondansetron HCl [Zofran] 4 mg PO Q8H PRN #10 tablet 02/18/17 Clopidogrel Bisulfate [Plavix -] 75 mg PO DAILY 04/23/17 REVIEW OF SYSTEMS CONSTITUTIONAL: Absent: fever, chills, diaphoresis, generalized weakness, malaise, loss of appetite, weight change HEENT: Absent: rhinorrhea, nasal congestion, throat pain, throat swelling, difficulty swallowing, mouth swelling, ear pain, eye pain, visual changes CARDIOVASCULAR: Absent: chest pain, syncope, palpitations, irregular heart rate, lightheadedness , peripheral edema RESPIRATORY: Productive cough, wheezing, shortness of breath Absent: stridor, hemoptysis GASTROINTESTINAL: Absent: abdominal pain, abdominal distension, nausea, vomiting, diarrhea, constipation, melena, hematochezia GENITOURINARY: Absent: dysuria, frequency, urgency, hesitancy, hematuria, flank pain, genital pain MUSCULOSKELETAL: Absent: myalgia, arthralgia, joint swelling, back pain, neck pain SKIN: Absent: rash, itching, pallor HEMATOLOGIC/IMMUNOLOGIC: Absent: easy bleeding, easy bruising, lymphadenopathy, frequent infections ENDOCRINE: Absent: unexplained weight gain, unexplained weight loss, heat intolerance, cold intolerance NEUROLOGIC: Absent: headache, focal weakness or paresthesias, dizziness, unsteady gait, seizure, mental status changes, bladder or bowel incontinence PSYCHIATRIC: Absent: anxiety, depression, suicidal or homicidal ideation, hallucinations. PHYSICAL EXAMINATION Vital Signs - 24 hr 04/23/17 04/23/17 07:16 11:54 Temperature 98.6 F 98.6 F Pulse Rate 59 L Pulse Rate [ 89 Right] Respiratory 16 Rate Blood Pressure 128/70 Blood Pressure 132/62 [Left Arm] O2 Sat by Pulse 95 95 Oximetry (%) GENERAL: Awake, alert, and fully oriented, in no acute distress. Tardive dyskinesia. HEAD: Normal with no signs of trauma. EYES: Pupils equal, round and reactive to light, extraocular movements intact, sclera anicteric, conjunctiva clear. No lid lag. EARS, NOSE, THROAT: Ears normal, nares patent, oropharynx clear without exudates. Moist mucous membranes. NECK: Normal range of motion, supple without lymphadenopathy, JVD, or masses. LUNGS: Breath sounds distant. No wheezes, and no crackles. No accessory muscle use. HEART: Regular rate and rhythm, normal S1 and S2 without murmur, rub or gallop. ABDOMEN: Soft, nontender, not distended, normoactive bowel sounds, no guarding, no rebound, no masses. No hepatomegaly or splenomegaly. MUSCULOSKELETAL: Normal range of motion at all joints. No bony deformities or tenderness. No CVA tenderness. UPPER EXTREMITIES: 2+ pulses, warm, well-perfused. No cyanosis. No clubbing. No peripheral edema. LOWER EXTREMITIES: 2+ pulses, warm, well-perfused. No calf tenderness. No peripheral edema. NEUROLOGICAL: Cranial nerves II-XII intact. Normal speech. Gait not observed. PSYCHIATRIC: Cooperative. Good eye contact. Appropriate mood and affect. SKIN: Warm, dry, normal turgor, no rashes or lesions noted, normal capillary refill. Laboratory Results - last 24 hr 04/23/17 04/23/17 04/23/17 08:35 08:35 08:35 WBC 8.4 RBC 3.53 L Hgb 11.0 L Hct 33.1 L MCV 93.7 MCH 31.2 MCHC 33.3 RDW 13.3 Plt Count 331 D MPV 7.5 D Neutrophils % 79.9 Lymphocytes % 10.2 Monocytes % 7.8 Eosinophils % 1.9 Basophils % 0.2 Sodium 132 L Potassium 4.9 Chloride 100 Carbon Dioxide 24 Anion Gap 8 BUN 13 D Creatinine 1.5 H Creat Clearance w eGFR 45.87 Random Glucose 118 H Calcium 9.1 Total Bilirubin 0.4 AST 17 ALT 12 D Alkaline Phosphatase 74 Creatine Kinase 106 Troponin I < 0.03 L Total Protein 6.2 L Albumin 3.6 ASSESSMENT/PLAN: 72 year old male with likely exacerbation of COPD. 1. COPD exacerbation -DuoNebs q6h while awake -Continue prednisone 60mg daily -Azithromycin -Continue Symbicort -Does not follow with a training and development coordinator; pulm consult requested here 2. Aortic stent, CAD -Continue ASA, Plavix -ED physician discussed case with covering vascular surgeon at [facility]; they are not concerned for any relationship between the recent stent and the current presentation and agree to admission at 3. Anxiety/depression -Continue Wellbutrin/Lexapro/Xanax/Risperidone 4. HTN -At goal -Continue Lisinopril 5. HLD -Continue Lipitor 6. Ppx -Early ambulation DISPO: Observation. Problem List - Problem (1) COPD exacerbation Code(s): J44.1 - CHRONIC OBSTRUCTIVE PULMONARY DISEASE W (ACUTE) EXACERBATION (2) CAD (coronary artery disease) Code(s): I25.10 - ATHSCL HEART DISEASE OF [place] CORONARY ARTERY W/O ANG PCTRS (3) DVT prophylaxis Code(s): KJD7166 - (4) Depression Code(s): F32.9 - MAJOR DEPRESSIVE DISORDER, SINGLE EPISODE, UNSPECIFIED (5) Hypertension Code(s): I10 - ESSENTIAL (PRIMARY) HYPERTENSION Visit type - Emergency Visit Emergency Visit: Yes ED Registration Date: 04/23/17 Care time: The patient presented to the Emergency Department on the above date and was hospitalized for further evaluation of their emergent condition. - New Patient This patient is new to me today: Yes Date on this admission: 04/23/17 - Critical Care Critical Care patient: No
[2017-04-23] MEDS ORDERED: AZITHROMYCIN IVPB 500 MG in DEXTROSE 5%-WATER - 250 ML IVPB ONE (14:06)
[2017-04-23] MEDS: EZETIMIBE 10 MG TABLET (FP) PO SCH (21:23)
[2017-04-23] MEDS: ATORVASTATIN CA 10 MG TABLET (FP) PO SCH (21:23)
[2017-04-23] MEDS: ALPRAZolam 0.25 MG TABLET PO SCH (21:24)
[2017-04-23] MEDS: risperiDONE 1 MG TABLET (FP) PO SCH (21:38)
[2017-04-23] MEDS ORDERED: PATIENT'S OWN MEDICATION (NON-FORMULARY) (Zolpidem Tartrate [Ambien] 10 MG) PO SCH (22:00)
[2017-04-23] MEDS ORDERED: PATIENT'S OWN MEDICATION (NON-FORMULARY) (Alprazolam [Xanax] 1 MG) PO SCH (22:00)
[2017-04-23] MEDS ORDERED: ZOLPIDEM TARTRATE 10 MG TABLET (PARK CARE ONLY) PO SCH (22:00)
[2017-04-23] MEDS: ZOLPIDEM TARTRATE 5 MG TABLET PO PRN (22:24)
[2017-04-23] MEDS: BUDESONIDE/FORMETEROL FUMARATE 160/4.5 mcg INHALER IH SCH (22:58)
[2017-04-24] MEDS: ALBUTEROL SO4 2.5/IPRATROPIUM 0.5 INH SOL 3 ML VIAL.NEB. NEB SCH ×2 (02:00→08:48)
--- NOTE | 2017-04-24 08:22 | PN ---
Physical Exam: SUBJECTIVE: Patient seen and examined, reports ongoing cough, denies any chest pain or shortness of breath. OBJECTIVE: patient is a 71 year old male with a history of HTN, anxiety/ depression, CAD s/p stent x 2 (2006 & 2015), COPD, and endovascular repair of AAA (02/03/17) patient was admitted from the emergency department for acute copd exacerbation. Vital Signs Period Temp Pulse Resp BP Sys/Gonzales Pulse Ox Last 24 Hr 98.0 F-99.0 F 58-89 17-20 131-140/57-71 93-96 GENERAL: The patient is awake, alert, and fully oriented, in no acute distress. HEAD: Normal with no signs of trauma. EYES: PERRL, extraocular movements intact, sclera anicteric, conjunctiva clear. No ptosis. ENT: Ears normal, nares patent, oropharynx clear without exudates, moist mucous membranes. NECK: Trachea midline, full range of motion, supple. LUNGS: Breath sounds equal, wheezing to bilateral apexes diminished to bilateral bases, no crackles, no accessory muscle use. HEART: Regular rate and rhythm, S1, S2 without murmur, rub or gallop. ABDOMEN: Soft, nontender, nondistended, normoactive bowel sounds, no guarding, no rebound, no hepatosplenomegaly, no masses. EXTREMITIES: 2+ pulses, warm, well-perfused, no edema. NEUROLOGICAL: Cranial nerves II through XII grossly intact. tardive dyskinesia, Normal speech, gait not observed. PSYCH: Normal mood, normal affect. SKIN: Warm, dry, normal turgor, no rashes or lesions noted Laboratory Results - last 24 hr 04/23/17 04/23/17 04/23/17 08:35 08:35 08:35 WBC 8.4 RBC 3.53 L Hgb 11.0 L Hct 33.1 L MCV 93.7 MCH 31.2 MCHC 33.3 RDW 13.3 Plt Count 331 D MPV 7.5 D Neutrophils % 79.9 Lymphocytes % 10.2 Monocytes % 7.8 Eosinophils % 1.9 Basophils % 0.2 Sodium 132 L Potassium 4.9 Chloride 100 Carbon Dioxide 24 Anion Gap 8 BUN 13 D Creatinine 1.5 H Creat Clearance w eGFR 45.87 Random Glucose 118 H Calcium 9.1 Total Bilirubin 0.4 AST 17 ALT 12 D Alkaline Phosphatase 74 Creatine Kinase 106 Troponin I < 0.03 L Total Protein 6.2 L Albumin 3.6 Active Medications Generic Name Dose Route Start Last Admin Trade Name Freq PRN Reason Stop Dose Admin Albuterol/Ipratropium 1 amp 04/23/17 14:00 04/24/17 02:00 Duoneb - NEB 1 amp Q6H FIDEL Administration Alprazolam 1 mg 04/23/17 22:00 04/23/17 21:24 Xanax - PO 1 mg BID FIDEL Administration Aspirin 81 mg 04/24/17 10:00 Asa - PO DAILY FIDEL Atorvastatin Calcium 10 mg 04/23/17 22:00 04/23/17 21:23 Lipitor - PO 10 mg HS FIDEL Administration Budesonide/Formoterol Fumarate 1 puff 04/23/17 22:00 04/23/17 22:58 Symbicort 160/4.5mcg - IH Not Given BID FIDEL Bupropion HCl 300 mg 04/23/17 21:30 04/23/17 22:57 Wellbutrin Xl - PO 300 mg DAILY FIDEL Administration Clopidogrel Bisulfate 75 mg 04/24/17 10:00 Plavix - PO DAILY FIDEL Ezetimibe 10 mg 04/23/17 22:00 04/23/17 21:23 Zetia - PO 10 mg HS FIDEL Administration Fenofibric Acid 45 mg 04/24/17 10:00 Trilipix - PO DAILY [facility] Azithromycin 250 mg/ Dextrose 250 mls @ 250 mls/hr 04/24/17 10:00 IVPB 04/27/17 10:59 DAILY FIDEL Lisinopril 10 mg 04/24/17 10:00 Prinivil PO DAILY [facility] Prednisone 60 mg 04/24/17 10:00 Deltasone - PO DAILY [facility] Risperidone 2 mg 04/23/17 22:00 04/23/17 21:38 Risperdal - PO 2 mg BID FIDEL Administration Zolpidem Tartrate 5 mg 04/23/17 21:36 04/23/17 22:24 Ambien - PO 5 mg HS PRN Administration INSOMNIA IMAGING chest xray: no acute pathology ASSESSMENT/PLAN: 1.Pulmonary copd excrbation - wheezing noted on exam start solumedrol 40mg q6h with taper as appropriate - continue scheduled duonebs q6h and symbicort - appreciate pulmonary input 2) cardiovascular aortic stent (02/03/17) - continue asa and plavix strict b/p control hypertension - continue lisinopril, b/p at goal hyperlipidemia - continue lipitor 3) psych anxiety/depression - continue wellbutrin/lexapro/xanax/risperdone home doses f/e/n - low sodium/cholesterol diet - replete lytes prn ppx - oob - pt - pepicd dispo: patient requires inpatient admission. Visit type - Emergency Visit Emergency Visit: Yes ED Registration Date: 04/24/17 Care time: The patient presented to the Emergency Department on the above date and was hospitalized for further evaluation of their emergent condition. - New Patient This patient is new to me today: Yes Date on this admission: 04/24/17 - Critical Care Critical Care patient: No - Discharge Referral Referred to [facility] Med P.C.: No
[2017-04-24] MEDS ORDERED: PT OWN MED DRAWER 7, Y5N ONE ×4 (09:52→21:03)
[2017-04-24] MEDS: AZITHROMYCIN IVPB 250 MG in DEXTROSE 5%-WATER - 250 ML IVPB SCH (09:57)
[2017-04-24] MEDS: FENOFIBRIC ACID 45 MG CAP PO SCH (09:59)
[2017-04-24] MEDS: ASPIRIN 81 MG CHEWABLE TABLETS PO SCH (09:59)
[2017-04-24] MEDS: ALPRAZolam 0.25 MG TABLET PO SCH ×2 (09:59→21:41)
[2017-04-24] MEDS: CLOPIDOGREL BISULFATE 75 MG TABLET (FP) PO SCH (10:00)
[2017-04-24] MEDS: LISINOPRIL 10 MG TABLET (FP) PO SCH (10:00)
[2017-04-24] MEDS: risperiDONE 1 MG TABLET (FP) PO SCH ×2 (10:00→21:40)
[2017-04-24] MEDS ORDERED: predniSONE 20 MG TABLET (UD) PO SCH (10:00)
[2017-04-24] MEDS ORDERED: FENOFIBRATE NANOCRYSTALLIZED 48 MG PO SCH (10:00)
[2017-04-24] MEDS: BUDESONIDE/FORMETEROL FUMARATE 160/4.5 mcg INHALER IH SCH ×3 (10:01→21:41)
--- NOTE | 2017-04-24 10:54 | PN ---
Progress Note (short form) - Note Progress Note: PULMONARY CONSULTATION DICTATED 04/24/17 IMP COPD EXACERBATION ASHD S/P STENT S/P ENDOVASCULAR REPAIR AAA HTN DEPRESSION/ANXIETY PLAN IV STEROIDS INHALED BRONCHODILATORS O2 ABX CHEST CT SPUTUM C+S PFTS OUTPATIENT DR PHILLIP Problem List - Problems (1) S/P AAA repair Code(s): Z98.890 - OTHER SPECIFIED POSTPROCEDURAL STATES; Z86.79 - PERSONAL HISTORY OF OTHER DISEASES OF THE CIRCULATORY SYSTEM (2) COPD exacerbation Code(s): J44.1 - CHRONIC OBSTRUCTIVE PULMONARY DISEASE W (ACUTE) EXACERBATION (3) Anxiety Code(s): F41.9 - ANXIETY DISORDER, UNSPECIFIED (4) CAD (coronary artery disease) Code(s): I25.10 - ATHSCL HEART DISEASE OF [place] CORONARY ARTERY W/O ANG PCTRS (5) Depression Code(s): F32.9 - MAJOR DEPRESSIVE DISORDER, SINGLE EPISODE, UNSPECIFIED (6) Hypertension Code(s): I10 - ESSENTIAL (PRIMARY) HYPERTENSION (7) ASHD (arteriosclerotic heart disease) Code(s): I25.10 - ATHSCL HEART DISEASE OF [place] CORONARY ARTERY W/O ANG PCTRS
[2017-04-24] MEDS: methylPREDNISolone NA SUCC 40 MG/1 ML VIAL IVPUSH SCH ×3 (11:32→21:40)
[2017-04-24] MEDS: TIOTROPIUM BROMIDE 18 MCG/INH (DEVICE W/ 5 CAPSULES) IH SCH (11:32)
[2017-04-24] MEDS: ALBUTEROL SO4 0.083% IH SOL 2.5 MG/3 ML VIAL.NEB. NEB PRN (11:45)
[2017-04-24 13:26] LABS: EOSINOPHIL 0.7 % (0-4.5); MCHC 33.2 g/dl (32.0-35.9); MEAN CELL VOLUME 93.5 fl (80-96); MEAN PLT VOLUME 7.7 fl (7.5-11.1); NEUTROPHILS 81.4 % (42.8-82.8); PLATELET COUNT 359 K/MM3 (134-434); RDW 13.1 % (11.9-15.9); WHITE BLOOD COUNT 9.2 K/mm3 (4.0-10.8)
[2017-04-24 13:34] LABS: ANION GAP 9 (8-16); CO2 24 mmol/L (22-28); CREATININE 1.3 mg/dl (0.6-1.3); GLUCOSE,RANDOM 120 mg/dl (74-106)
[2017-04-24 13:35] LABS: ALBUMIN 3.6 g/dl (3.5-5.0); ALK PHOS 67 U/L (32-92); BILIRUBIN,TOTAL 0.2 mg/dl (0.2-1.0); CALCIUM 9.4 mg/dl (8.4-10.2); MAGNESIUM 1.7 mg/dL (1.8-2.4); PHOSPHOROUS 2.8 mg/dl (2.5-4.6); SGOT/AST 18 U/L (10-42); SGPT/ALT 13 U/L (10-40); TOT PROT 6.4 g/dl (6.4-8.3)
[2017-04-24] MEDS ORDERED: MAGNESIUM SULF 50% (8.12 MEQ/2 ML-1 GM VIAL) IVPB ONE (13:40)
[2017-04-24] MEDS: guaiFENesin 600 MG TABLET.ER (FP) PO SCH (15:29)
--- NOTE | 2017-04-24 17:09 | EKG ---
Test Reason : Blood Pressure : / mmHG Vent. Rate : 058 BPM Atrial Rate : 058 BPM P-R Int : 186 ms QRS Dur : 090 ms QT Int : 448 ms P-R-T Axes : 113 -27 -28 degrees QTc Int : 439 ms BASELINE ARTIFACT SINUS BRADYCARDIA INFERIOR INFARCT (CITED ON OR BEFORE 21-AUG-2016) WHEN COMPARED WITH ECG OF 17-FEB-2017 12:37, PREMATURE VENTRICULAR COMPLEXES ARE NO LONGER PRESENT Confirmed by MD DHAVAL, MYLES ([id number]) on 04/24/2017 5:09:16 PM Referred By: RUDDY Confirmed By:MYLES PUENTES MD
--- NOTE | 2017-04-24 20:31 | CONS ---
PULMONARY CONSULTATION DATE OF CONSULTATION: 04/24/2017 REFERRING PHYSICIAN: Nidia Duran NP HISTORY OF PRESENT ILLNESS: The patient is a 71-year-old white male with a past medical history of COPD; ASHD status post stent approximately 10 years ago; AAA, status post endovascular repair in January (the patient had a small leak on his AAA repair to the stent status post repair on April 14 at [facility]); hypertension; anxiety; depression; longstanding history of tobacco use, quit 11 years ago; admitted to [facility] on April 23 secondary to 1- week history of increasing shortness of breath, cough, and chest congestion. Apparently, the patient's son recently visited him. His son apparently had a cold, and the patient started developing the above symptoms. Denied any fevers or chills. Denied any nausea, vomiting, or diaphoresis. Denies any chest pains or palpitations. Patient is currently maintained on Symbicort inhaler for his COPD, although he has never seen a radiology transcriptionist. He denies any recent travel. There is no history of occupational exposure to chemicals or fumes. PAST MEDICAL HISTORY: Again includes ASHD status post stents; COPD; hypertension; anxiety; depression; status post endovascular repair of the AAA in late January, status post AAA re-repair of leak 1 week ago at [facility]. REVIEW OF SYSTEMS: Positive cough. Positive shortness of breath. Positive sputum. No fever. No chills. No hemoptysis. No abdominal pain. No chest pain. No palpitations. No lower extremity edema. CURRENT MEDICATIONS: Include Symbicort, prednisone, Prinivil, azithromycin, Wellbutrin, Risperdal, Ambien, Xanax, DuoNeb, Zetia, Trilipix, Lipitor, aspirin , and Plavix. PHYSICAL EXAMINATION: General: The patient is a well-developed, well-nourished male, awake, alert, in no acute distress. Vital Signs: He is afebrile. Blood pressure 127/62, respiratory rate is 20, O2 saturation is 95% on room air. HEENT: Normocephalic, atraumatic. Neck: Supple. Heart: Regular. S1, S2. Chest: Scattered bilateral wheezes throughout. Abdomen: Soft. Bowel sounds are positive. Extremities: No signs of edema. LABORATORY DATA: WBC is 8.4, hemoglobin 11, hematocrit 33.3, and platelet count of 331,000. BUN 13, creatinine 1.5. Chest x-ray reveals no acute infiltrates or infusions but prominent mediastinum. IMPRESSION: 1. Chronic obstructive pulmonary disease with acute exacerbation. 2. Atherosclerotic heart disease status post stent. 3. Status post endovascular repair of abdominal aortic aneurysm. 4. Hypertension. 5. Anxiety and depression. PLAN: IV steroids, inhaled bronchodilators, supplemental O2, monitor peak flow , a CT scan of the chest, PFTs as outpatient, sputum C&S. El [id number] MTDD
[2017-04-24] MEDS: ATORVASTATIN CA 10 MG TABLET (FP) PO SCH (21:40)
[2017-04-24] MEDS: ZOLPIDEM TARTRATE 5 MG TABLET PO PRN (21:40)
[2017-04-24] MEDS: EZETIMIBE 10 MG TABLET (FP) PO SCH (21:41)
[2017-04-25] MEDS: ALBUTEROL SO4 0.083% IH SOL 2.5 MG/3 ML VIAL.NEB. NEB PRN ×2 (01:17→23:37)
[2017-04-25] MEDS: methylPREDNISolone NA SUCC 40 MG/1 ML VIAL IVPUSH SCH ×4 (03:00→21:48)
[2017-04-25] MEDS ORDERED: PT OWN MED DRAWER 7, Y5N ONE ×3 (06:15→21:46)
[2017-04-25 07:39] LABS: BASOPHIL 0.1 % (0-2.0); MCH 31.7 pg (25.7-33.7); MCHC 33.9 g/dl (32.0-35.9); MEAN CELL VOLUME 93.5 fl (80-96); MEAN PLT VOLUME 7.4 fl (7.5-11.1); PLATELET COUNT 371 K/MM3 (134-434)
[2017-04-25 09:04] LABS: ALBUMIN 3.4 g/dl (3.5-5.0); ALK PHOS 62 U/L (32-92); ANION GAP 8 (8-16); CO2 22 mmol/L (22-28); CREATININE 1.4 mg/dl (0.6-1.3); GLUCOSE,RANDOM 140 mg/dl (74-106); PHOSPHOROUS 3.6 mg/dl (2.5-4.6); SGOT/AST 19 U/L (10-42); SGPT/ALT 12 U/L (10-40); TOT PROT 6.3 g/dl (6.4-8.3)
[2017-04-25 09:05] LABS: BILIRUBIN,TOTAL < 0.3 mg/dl (0.2-1.0)
[2017-04-25] MEDS: CLOPIDOGREL BISULFATE 75 MG TABLET (FP) PO SCH (09:36)
[2017-04-25] MEDS: guaiFENesin 600 MG TABLET.ER (FP) PO SCH ×2 (09:36→21:48)
[2017-04-25] MEDS: ASPIRIN 81 MG CHEWABLE TABLETS PO SCH (09:36)
[2017-04-25] MEDS: ALPRAZolam 0.25 MG TABLET PO SCH ×2 (09:36→21:49)
[2017-04-25] MEDS: risperiDONE 1 MG TABLET (FP) PO SCH ×2 (09:36→21:48)
[2017-04-25] MEDS: BUDESONIDE/FORMETEROL FUMARATE 160/4.5 mcg INHALER IH SCH ×3 (09:37→21:48)
[2017-04-25] MEDS: AZITHROMYCIN IVPB 250 MG in DEXTROSE 5%-WATER - 250 ML IVPB SCH (09:38)
[2017-04-25] MEDS: TIOTROPIUM BROMIDE 18 MCG/INH (DEVICE W/ 5 CAPSULES) IH SCH (09:39)
[2017-04-25] MEDS: FENOFIBRIC ACID 45 MG CAP PO SCH (09:41)
[2017-04-25] MEDS: LISINOPRIL 10 MG TABLET (FP) PO SCH (09:42)
--- NOTE | 2017-04-25 09:47 | PN ---
Progress Note, Physician History of Present Illness: PULMONARY ALERT,OOB-CHAIR,LESS DYSPNEIC - Current Medication List Current Medications: Active Medications Albuterol Sulfate (Ventolin 0.083% Nebulizer Soln -) 1 amp NEB Q4H PRN PRN Reason: SHORT OF BREATH/WHEEZING Last Admin: 04/25/17 01:17 Dose: 1 amp Alprazolam (Xanax -) 1 mg PO BID [facility] Last Admin: 04/25/17 09:36 Dose: 1 mg Aspirin (Asa -) 81 mg PO DAILY [facility] Last Admin: 04/25/17 09:36 Dose: 81 mg Atorvastatin Calcium (Lipitor -) 10 mg PO HS [facility] Last Admin: 04/24/17 21:40 Dose: 10 mg Budesonide/Formoterol Fumarate (Symbicort 160/4.5mcg -) 2 puff IH BID [facility] Last Admin: 04/24/17 21:41 Dose: 2 puff Bupropion HCl (Wellbutrin Xl -) 300 mg PO DAILY [facility] Last Admin: 04/25/17 09:36 Dose: 300 mg Clopidogrel Bisulfate (Plavix -) 75 mg PO DAILY [facility] Last Admin: 04/25/17 09:36 Dose: 75 mg Ezetimibe (Zetia -) 10 mg PO HS [facility] Last Admin: 04/24/17 21:41 Dose: 10 mg Fenofibric Acid (Trilipix -) 45 mg PO DAILY [facility] Last Admin: 04/25/17 09:41 Dose: 45 mg Guaifenesin (Mucinex -) 600 mg PO BID [facility] Last Admin: 04/25/17 09:36 Dose: 600 mg Azithromycin 250 mg/ Dextrose 250 mls @ 250 mls/hr IVPB DAILY [facility] Stop: 04/27/17 10:59 Last Admin: 04/25/17 09:38 Dose: 250 mls/hr Lisinopril (Prinivil) 10 mg PO DAILY [facility] Last Admin: 04/25/17 09:42 Dose: 10 mg Methylprednisolone Sodium Succinate (Solu-Medrol -) 40 mg IVPUSH Q6H-IV [facility] Last Admin: 04/25/17 09:35 Dose: 40 mg Risperidone (Risperdal -) 2 mg PO BID [facility] Last Admin: 04/25/17 09:36 Dose: 2 mg Tiotropium [place] (Spiriva -) 1 puff IH DAILY [facility] Last Admin: 04/25/17 09:39 Dose: 1 puff Zolpidem Tartrate (Ambien -) 5 mg PO HS PRN PRN Reason: INSOMNIA Last Admin: 04/24/17 21:40 Dose: 5 mg - Objective Vital Signs: Vital Signs Temperature 98.1 F 04/25/17 06:44 Pulse Rate 57 L 04/25/17 06:44 Respiratory Rate 20 04/25/17 08:27 Blood Pressure 139/59 04/25/17 06:44 O2 Sat by Pulse Oximetry (%) 94 L 04/25/17 08:27 Constitutional: Yes: Well Nourished, Calm Eyes: Yes: WNL HENT: Yes: WNL Neck: Yes: WNL Cardiovascular: Yes: Regular Rate and Rhythm, S1, S2 Respiratory: Yes: Wheezes (FEW WHEEZES) Gastrointestinal: Yes: Normal Bowel Sounds, Soft Extremities: Yes: WNL Edema: No Labs: CBC, BMP 04/25/17 07:30 04/25/17 07:30 Problem List - Problems (1) S/P AAA repair Code(s): Z98.890 - OTHER SPECIFIED POSTPROCEDURAL STATES; Z86.79 - PERSONAL HISTORY OF OTHER DISEASES OF THE CIRCULATORY SYSTEM (2) COPD exacerbation Code(s): J44.1 - CHRONIC OBSTRUCTIVE PULMONARY DISEASE W (ACUTE) EXACERBATION (3) Anxiety Code(s): F41.9 - ANXIETY DISORDER, UNSPECIFIED (4) CAD (coronary artery disease) Code(s): I25.10 - ATHSCL HEART DISEASE OF [place] CORONARY ARTERY W/O ANG PCTRS (5) Depression Code(s): F32.9 - MAJOR DEPRESSIVE DISORDER, SINGLE EPISODE, UNSPECIFIED (6) Hypertension Code(s): I10 - ESSENTIAL (PRIMARY) HYPERTENSION (7) ASHD (arteriosclerotic heart disease) Code(s): I25.10 - ATHSCL HEART DISEASE OF [place] CORONARY ARTERY W/O ANG PCTRS Assessment/Plan IMP COPD EXACERBATION ASHD S/P STENT S/P ENDOVASCULAR REPAIR AAA HTN DEPRESSION/ANXIETY PLAN IV STEROIDS INHALED BRONCHODILATORS O2 ABX PFTS OUT[address] PHILLIP Problem List - Problems (1) S/P AAA repair Code(s): Z98.890 - OTHER SPECIFIED POSTPROCEDURAL STATES; Z86.79 - PERSONAL HISTORY OF OTHER DISEASES OF THE CIRCULATORY SYSTEM (2) COPD exacerbation Code(s): J44.1 - CHRONIC OBSTRUCTIVE PULMONARY DISEASE W (ACUTE) EXACERBATION (3) Anxiety Code(s): F41.9 - ANXIETY DISORDER, UNSPECIFIED (4) CAD (coronary artery disease) Code(s): I25.10 - ATHSCL HEART DISEASE OF [place] CORONARY ARTERY W/O ANG PCTRS (5) Depression Code(s): F32.9 - MAJOR DEPRESSIVE DISORDER, SINGLE EPISODE, UNSPECIFIED (6) Hypertension Code(s): I10 - ESSENTIAL (PRIMARY) HYPERTENSION (7) ASHD (arteriosclerotic heart disease) Code(s): I25.10 - ATHSCL HEART DISEASE OF [place] CORONARY ARTERY W/O ANG PCTRS
--- NOTE | 2017-04-25 11:55 | PN ---
Physical Exam: SUBJECTIVE: Patient seen and examined, reports much better, reports less coughing OBJECTIVE: patient is a 71 year old male with a history of HTN, anxiety/ depression, CAD s/p stent x 2 (2006 & 2015), COPD, and endovascular repair of AAA (02/03/17) patient was admitted from the emergency department for copd exacerbation. Vital Signs Period Temp Pulse Resp BP Sys/Gonzales Pulse Ox Last 24 Hr 97.3 F-98.4 F 57-69 18-20 136-141/59-68 92-98 GENERAL: The patient is awake, alert, and fully oriented, in no acute distress. HEAD: Normal with no signs of trauma. EYES: PERRL, extraocular movements intact, sclera anicteric, conjunctiva clear. No ptosis. ENT: Ears normal, nares patent, oropharynx clear without exudates, moist mucous membranes. NECK: Trachea midline, full range of motion, supple. LUNGS: Breath sounds equal, clear to auscultation bilaterally to apexes, diminished to bases, moist cough is noted, no wheezes, no crackles, no accessory muscle use. HEART: Regular rate and rhythm, S1, S2 without murmur, rub or gallop. ABDOMEN: Soft, nontender, nondistended, normoactive bowel sounds, no guarding, no rebound, no hepatosplenomegaly, no masses. EXTREMITIES: 2+ pulses, warm, well-perfused, no edema. NEUROLOGICAL: Cranial nerves II through XII grossly intact. Normal speech, gait not observed. PSYCH: Normal mood, normal affect. SKIN: Warm, dry, normal turgor, no rashes or lesions noted Laboratory Results - last 24 hr CBC WBC 12.0 K/mm3 (4.0-10.8) H D 04/25/17 07:30 RBC 3.44 M/mm3 (4.00-5.60) L 04/25/17 07:30 Hgb 10.9 GM/dl (11.7-16.9) L 04/25/17 07:30 Hct 32.2 % (35.4-49) L 04/25/17 07:30 MCV 93.5 fl (80-96) 04/25/17 07:30 MCH 31.7 pg (25.7-33.7) 04/25/17 07:30 MCHC 33.9 g/dl (32.0-35.9) 04/25/17 07:30 RDW 13.0 % (11.9-15.9) 04/25/17 07:30 Plt Count 371 K/MM3 (134-434) 04/25/17 07:30 MPV 7.4 fl (7.5-11.1) L 04/25/17 07:30 Neutrophils % 90.0 % (42.8-82.8) H 04/25/17 07:30 Lymphocytes % 5.3 % (8-40) L D 04/25/17 07:30 Monocytes % 4.6 % (3.8-10.2) 04/25/17 07:30 Eosinophils % 0.0 % (0-4.5) D 04/25/17 07:30 Basophils % 0.1 % (0-2.0) D 04/25/17 07:30 CMP Sodium 132 mmol/L (136-145) L 04/25/17 07:30 Potassium 4.4 mmol/L (3.5-5.1) 04/25/17 07:30 Chloride 102 mmol/L (98-107) 04/25/17 07:30 Carbon Dioxide 22 mmol/L (22-28) 04/25/17 07:30 Anion Gap 8 (8-16) 04/25/17 07:30 BUN 25 mg/dl (7-18) H D 04/25/17 07:30 Creatinine 1.4 mg/dl (0.6-1.3) H 04/25/17 07:30 Creat Clearance w eGFR 49.68 (>60) 04/25/17 07:30 Random Glucose 140 mg/dl (74-106) H 04/25/17 07:30 Calcium 9.0 mg/dl (8.4-10.2) 04/25/17 07:30 Phosphorus 3.6 mg/dl (2.5-4.6) D 04/25/17 07:30 Magnesium 2.0 mg/dL (1.8-2.4) 04/25/17 07:30 Total Bilirubin < 0.3 mg/dl (0.2-1.0) D 04/25/17 07:30 AST 19 U/L (10-42) 04/25/17 07:30 ALT 12 U/L (10-40) 04/25/17 07:30 Alkaline Phosphatase 62 U/L (32-92) 04/25/17 07:30 Creatine Kinase 106 IU/L (39-308) 04/23/17 08:35 Troponin I < 0.03 ng/ml (0.03-0.50) L 04/23/17 08:35 Total Protein 6.3 g/dl (6.4-8.3) L 04/25/17 07:30 Albumin 3.4 g/dl (3.5-5.0) L 04/25/17 07:30 Active Medications Generic Name Dose Route Start Last Admin Trade Name Freq PRN Reason Stop Dose Admin Albuterol Sulfate 1 amp 04/24/17 10:57 04/25/17 01:17 Ventolin 0.083% Nebulizer Soln - NEB 1 amp Q4H PRN Administration SHORT OF BREATH/WHEEZING Alprazolam 1 mg 04/23/17 22:00 04/25/17 09:36 Xanax - PO 1 mg BID [facility] Administration Aspirin 81 mg 04/24/17 10:00 04/25/17 09:36 Asa - PO 81 mg DAILY [facility] Administration Atorvastatin Calcium 10 mg 04/23/17 22:00 04/24/17 21:40 Lipitor - PO 10 mg HS [facility] Administration Budesonide/Formoterol Fumarate 2 puff 04/24/17 11:00 04/24/17 21:41 Symbicort 160/4.5mcg - IH 2 puff BID [facility] Administration Bupropion HCl 300 mg 04/25/17 10:00 04/25/17 09:36 Wellbutrin Xl - PO 300 mg DAILY [facility] Administration Clopidogrel Bisulfate 75 mg 04/24/17 10:00 04/25/17 09:36 Plavix - PO 75 mg DAILY [facility] Administration Ezetimibe 10 mg 04/23/17 22:00 04/24/17 21:41 Zetia - PO 10 mg HS [facility] Administration Fenofibric Acid 45 mg 04/24/17 10:00 04/25/17 09:41 Trilipix - PO 45 mg DAILY [facility] Administration Guaifenesin 600 mg 04/24/17 12:45 04/25/17 09:36 Mucinex - PO 600 mg BID [facility] Administration Azithromycin 250 mg/ Dextrose 250 mls @ 250 mls/hr 04/24/17 10:00 04/25/17 09 :38 IVPB 04/27/17 10:59 250 mls/hr DAILY [facility] Administration Lisinopril 10 mg 04/24/17 10:00 04/25/17 09:42 Prinivil PO 10 mg DAILY [facility] Administration Methylprednisolone Sodium Succinate 40 mg 04/24/17 11:00 04/25/17 09:35 Solu-Medrol - IVPUSH 40 mg Q6H-IV [facility] Administration Risperidone 2 mg 04/23/17 22:00 04/25/17 09:36 Risperdal - PO 2 mg BID [facility] Administration Tiotropium [place] 1 puff 04/24/17 11:00 04/25/17 09:39 Spiriva - IH 1 puff DAILY [facility] Administration Zolpidem Tartrate 5 mg 04/23/17 21:36 04/24/17 21:40 Ambien - PO 5 mg HS PRN Administration INSOMNIA IMAGING chest xray: no acute pathology chest ct: no acute infilitrate, mild to moderate centribolar emphysematous changes non specific bilateral pulmonary nodules ASSESSMENT/PLAN: 1.Pulmonary copd excrbation - wheezing much improved, decrease solumedrol to TID - continue scheduled duonebs q6h and symbicort - appreciate pulmonary input 2) cardiovascular aortic stent (02/03/17) - continue asa and plavix strict b/p control hypertension - continue lisinopril, b/p at goal hyperlipidemia - continue lipitor 3) psych anxiety/depression - continue wellbutrin/lexapro/xanax/risperdone home doses 4) nephrology acute on chronic renal insufficency - creatine 1.4 baseline 1.0, close monitoring f/e/n hyponatriemia - corrected serum sodium 133 - low sodium/cholesterol diet - replete lytes prn ppx - oob - pt - pepicd dispo: patient requires inpatient admission.
[2017-04-25] MEDS: ATORVASTATIN CA 10 MG TABLET (FP) PO SCH (21:48)
[2017-04-25] MEDS: EZETIMIBE 10 MG TABLET (FP) PO SCH (21:49)
[2017-04-25] MEDS: ZOLPIDEM TARTRATE 5 MG TABLET PO PRN (22:18)
[2017-04-26] MEDS: methylPREDNISolone NA SUCC 40 MG/1 ML VIAL IVPUSH SCH ×3 (06:44→21:36)
--- NOTE | 2017-04-26 07:52 | PN ---
Progress Note, Physician History of Present Illness: PULMONARY ALERT,FEELING BETTER,LESS CONGESTED - Current Medication List Current Medications: Active Medications Albuterol Sulfate (Ventolin 0.083% Nebulizer Soln -) 1 amp NEB Q4H PRN PRN Reason: SHORT OF BREATH/WHEEZING Last Admin: 04/25/17 23:37 Dose: 1 amp Alprazolam (Xanax -) 1 mg PO BID [facility] Last Admin: 04/25/17 21:49 Dose: 1 mg Aspirin (Asa -) 81 mg PO DAILY [facility] Last Admin: 04/25/17 09:36 Dose: 81 mg Atorvastatin Calcium (Lipitor -) 10 mg PO HS [facility] Last Admin: 04/25/17 21:48 Dose: 10 mg Budesonide/Formoterol Fumarate (Symbicort 160/4.5mcg -) 2 puff IH BID [facility] Last Admin: 04/25/17 21:48 Dose: 2 puff Bupropion HCl (Wellbutrin Xl -) 300 mg PO DAILY [facility] Last Admin: 04/25/17 09:36 Dose: 300 mg Clopidogrel Bisulfate (Plavix -) 75 mg PO DAILY [facility] Last Admin: 04/25/17 09:36 Dose: 75 mg Ezetimibe (Zetia -) 10 mg PO HS [facility] Last Admin: 04/25/17 21:49 Dose: 10 mg Fenofibric Acid (Trilipix -) 45 mg PO DAILY [facility] Last Admin: 04/25/17 09:41 Dose: 45 mg Guaifenesin (Mucinex -) 600 mg PO BID [facility] Last Admin: 04/25/17 21:48 Dose: 600 mg Azithromycin 250 mg/ Dextrose 250 mls @ 250 mls/hr IVPB DAILY [facility] Stop: 04/27/17 10:59 Last Admin: 04/25/17 09:38 Dose: 250 mls/hr Lisinopril (Prinivil) 10 mg PO DAILY [facility] Last Admin: 04/25/17 09:42 Dose: 10 mg Methylprednisolone Sodium Succinate (Solu-Medrol -) 40 mg IVPUSH TID [facility] Last Admin: 04/26/17 06:44 Dose: 40 mg Risperidone (Risperdal -) 2 mg PO BID [facility] Last Admin: 04/25/17 21:48 Dose: 2 mg Tiotropium [place] (Spiriva -) 1 puff IH DAILY [facility] Last Admin: 04/25/17 09:39 Dose: 1 puff Zolpidem Tartrate (Ambien -) 5 mg PO HS PRN PRN Reason: INSOMNIA Last Admin: 04/25/17 22:18 Dose: 5 mg - Objective Vital Signs: Vital Signs Temperature 97.8 F 04/26/17 06:24 Pulse Rate 57 L 04/26/17 06:24 Respiratory Rate 18 04/26/17 06:24 Blood Pressure 141/66 04/26/17 06:24 O2 Sat by Pulse Oximetry (%) 93 L 04/25/17 22:59 Constitutional: Yes: Well Nourished, Calm Eyes: Yes: WNL HENT: Yes: WNL Neck: Yes: WNL Cardiovascular: Yes: Regular Rate and Rhythm, S1, S2 Respiratory: Yes: Wheezes (FEW SCATTERED NADJA WHEEZES) Gastrointestinal: Yes: Normal Bowel Sounds, Soft Extremities: Yes: WNL Edema: No Labs: - ....Imaging Cat Scan: Report Reviewed, Image Reviewed Problem List - Problems (1) S/P AAA repair Code(s): Z98.890 - OTHER SPECIFIED POSTPROCEDURAL STATES; Z86.79 - PERSONAL HISTORY OF OTHER DISEASES OF THE CIRCULATORY SYSTEM (2) COPD exacerbation Code(s): J44.1 - CHRONIC OBSTRUCTIVE PULMONARY DISEASE W (ACUTE) EXACERBATION (3) Anxiety Code(s): F41.9 - ANXIETY DISORDER, UNSPECIFIED (4) CAD (coronary artery disease) Code(s): I25.10 - ATHSCL HEART DISEASE OF [place] CORONARY ARTERY W/O ANG PCTRS (5) Depression Code(s): F32.9 - MAJOR DEPRESSIVE DISORDER, SINGLE EPISODE, UNSPECIFIED (6) Hypertension Code(s): I10 - ESSENTIAL (PRIMARY) HYPERTENSION (7) ASHD (arteriosclerotic heart disease) Code(s): I25.10 - ATHSCL HEART DISEASE OF [place] CORONARY ARTERY W/O ANG PCTRS Assessment/Plan IMP COPD EXACERBATION ASHD S/P STENT S/P ENDOVASCULAR REPAIR AAA HTN DEPRESSION/ANXIETY PULMONARY NODULES PLAN IV STEROIDS SAME DOSE INHALED BRONCHODILATORS O2 ABX PFTS OUTPATIENT F/U CHEST CT 6MONTHS DR PHILLIP Problem List - Problems (1) S/P AAA repair Code(s): Z98.890 - OTHER SPECIFIED POSTPROCEDURAL STATES; Z86.79 - PERSONAL HISTORY OF OTHER DISEASES OF THE CIRCULATORY SYSTEM (2) COPD exacerbation Code(s): J44.1 - CHRONIC OBSTRUCTIVE PULMONARY DISEASE W (ACUTE) EXACERBATION (3) Anxiety Code(s): F41.9 - ANXIETY DISORDER, UNSPECIFIED (4) CAD (coronary artery disease) Code(s): I25.10 - ATHSCL HEART DISEASE OF [place] CORONARY ARTERY W/O ANG PCTRS (5) Depression Code(s): F32.9 - MAJOR DEPRESSIVE DISORDER, SINGLE EPISODE, UNSPECIFIED (6) Hypertension Code(s): I10 - ESSENTIAL (PRIMARY) HYPERTENSION (7) ASHD (arteriosclerotic heart disease) Code(s): I25.10 - ATHSCL HEART DISEASE OF [place] CORONARY ARTERY W/O ANG PCTRS
[2017-04-26 08:19] LABS: MCH 31.2 pg (25.7-33.7); MCHC 33.2 g/dl (32.0-35.9); MEAN PLT VOLUME 7.7 fl (7.5-11.1); PLATELET COUNT 410 K/MM3 (134-434); RDW 13.4 % (11.9-15.9); WHITE BLOOD COUNT 14.3 K/mm3 (4.0-10.8)
[2017-04-26 08:37] LABS: ALBUMIN 3.4 g/dl (3.5-5.0); ALK PHOS 55 U/L (32-92); ANION GAP 7 (8-16); BILIRUBIN,TOTAL 0.4 mg/dl (0.2-1.0); CALCIUM 9.3 mg/dl (8.4-10.2); CO2 23 mmol/L (22-28); CREATININE 1.4 mg/dl (0.6-1.3); GLUCOSE,RANDOM 135 mg/dl (74-106); PHOSPHOROUS 3.9 mg/dl (2.5-4.6); SGOT/AST 17 U/L (10-42); SGPT/ALT 13 U/L (10-40)
[2017-04-26 08:39] LABS: PLATELET ESTIMATE ADEQUATE
[2017-04-26] MEDS ORDERED: ALBUTEROL SO4 0.083% IH SOL 2.5 MG/3 ML VIAL.NEB. NEB ONE (10:30)
[2017-04-26] MEDS: ALBUTEROL SO4 0.083% IH SOL 2.5 MG/3 ML VIAL.NEB. NEB PRN ×2 (10:40→19:31)
[2017-04-26] MEDS: guaiFENesin 600 MG TABLET.ER (FP) PO SCH ×3 (11:09→21:35)
[2017-04-26] MEDS: CLOPIDOGREL BISULFATE 75 MG TABLET (FP) PO SCH (11:10)
[2017-04-26] MEDS: ASPIRIN 81 MG CHEWABLE TABLETS PO SCH (11:10)
[2017-04-26] MEDS: LISINOPRIL 10 MG TABLET (FP) PO SCH (11:10)
[2017-04-26] MEDS: risperiDONE 1 MG TABLET (FP) PO SCH ×2 (11:11→21:36)
[2017-04-26] MEDS: ALPRAZolam 0.25 MG TABLET PO SCH ×2 (11:15→21:36)
[2017-04-26] MEDS: AZITHROMYCIN IVPB 250 MG in DEXTROSE 5%-WATER - 250 ML IVPB SCH (11:15)
[2017-04-26] MEDS ORDERED: PT OWN MED DRAWER 7, Y5N ONE ×2 (12:05→21:34)
[2017-04-26] MEDS: BUDESONIDE/FORMETEROL FUMARATE 160/4.5 mcg INHALER IH SCH ×2 (12:08→21:36)
[2017-04-26] MEDS: TIOTROPIUM BROMIDE 18 MCG/INH (DEVICE W/ 5 CAPSULES) IH SCH (12:08)
[2017-04-26] MEDS: FENOFIBRIC ACID 45 MG CAP PO SCH (12:09)
--- NOTE | 2017-04-26 14:16 | PN ---
Physical Exam: SUBJECTIVE: Patient seen and examined, reports ongoing cough, denies any chest pain or shortness of breath. OBJECTIVE: patient is a 71 year old male with a history of HTN, anxiety/ depression, CAD s/p stent x 2 (2006 & 2016), COPD, and endovascular repair of AAA (02/03/17) patient was admitted from the emergency department for copd exacerbation. Vital Signs Period Temp Pulse Resp BP Sys/Gonzales Pulse Ox Last 24 Hr 97.2 F-97.8 F 57-80 18-24 123-151/60-74 92-97 GENERAL: The patient is awake, alert, and fully oriented, tardive dyskinesia in no acute distress. HEAD: Normal with no signs of trauma. EYES: PERRL, extraocular movements intact, sclera anicteric, conjunctiva clear. No ptosis. ENT: Ears normal, nares patent, oropharynx clear without exudates, moist mucous membranes. NECK: Trachea midline, full range of motion, supple. LUNGS: Breath sounds equal, bilateral inspiratory wheeze to apexes, diminished to bases, persistent moist cough is noted, no crackles, no accessory muscle use. HEART: Regular rate and rhythm, S1, S2 without murmur, rub or gallop. ABDOMEN: Soft, nontender, nondistended, normoactive bowel sounds, no guarding, no rebound, no hepatosplenomegaly, no masses. EXTREMITIES: 2+ pulses, warm, well-perfused, no edema. NEUROLOGICAL: Cranial nerves II through XII grossly intact. Normal speech, gait not observed. PSYCH: Normal mood, normal affect. SKIN: Warm, dry, normal turgor, no rashes or lesions noted Laboratory Results - last 24 hr 04/26/17 04/26/17 07:30 07:30 WBC 14.3 H RBC 3.55 L Hgb 11.1 L Hct 33.3 L MCV 94.0 MCH 31.2 MCHC 33.2 RDW 13.4 Plt Count 410 MPV 7.7 Neutrophils % No Result Required. Neutrophils % (Manual) 87.0 H Band Neutrophils % 4.0 Lymphocytes % No Result Required. Lymphocytes % (Manual) 6.0 L Monocytes % (Manual) 3 L Platelet Estimate Adequate Sodium 131 L Potassium 4.9 Chloride 101 Carbon Dioxide 23 Anion Gap 7 L BUN 31 H D Creatinine 1.4 H Creat Clearance w eGFR 49.68 Random Glucose 135 H Calcium 9.3 Phosphorus 3.9 Magnesium 2.0 Total Bilirubin 0.4 D AST 17 ALT 13 Alkaline Phosphatase 55 Total Protein 6.0 L Albumin 3.4 L Active Medications Generic Name Dose Route Start Last Admin Trade Name Freq PRN Reason Stop Dose Admin Albuterol Sulfate 1 amp 04/24/17 10:57 04/26/17 10:40 Ventolin 0.083% Nebulizer Soln - NEB 1 amp Q4H PRN Administration SHORT OF BREATH/WHEEZING Alprazolam 1 mg 04/23/17 22:00 04/26/17 11:15 Xanax - PO 1 mg BID [facility] Administration Aspirin 81 mg 04/24/17 10:00 04/26/17 11:10 Asa - PO 81 mg DAILY [facility] Administration Atorvastatin [place] 10 mg 04/23/17 22:00 04/25/17 21:48 Lipitor - PO 10 mg HS [facility] Administration Budesonide/Formoterol Fumarate 2 puff 04/24/17 11:00 04/26/17 12:08 Symbicort 160/4.5mcg - IH 2 puff BID [facility] Administration Bupropion HCl 300 mg 04/25/17 10:00 04/26/17 11:11 Wellbutrin Xl - PO 300 mg DAILY [facility] Administration Clopidogrel Bisulfate 75 mg 04/24/17 10:00 04/26/17 11:10 Plavix - PO 75 mg DAILY [facility] Administration Ezetimibe 10 mg 04/23/17 22:00 04/25/17 21:49 Zetia - PO 10 mg HS [facility] Administration Fenofibric Acid 45 mg 04/24/17 10:00 04/26/17 12:09 Trilipix - PO 45 mg DAILY [facility] Administration Guaifenesin 600 mg 04/24/17 12:45 04/26/17 11:10 Mucinex - PO 600 mg BID [facility] Administration Azithromycin 250 mg/ Dextrose 250 mls @ 250 mls/hr 04/24/17 10:00 04/26/17 11 :15 IVPB 04/27/17 10:59 250 mls/hr DAILY [facility] Administration Lisinopril 10 mg 04/24/17 10:00 04/26/17 11:10 Prinivil PO 10 mg DAILY [facility] Administration Methylprednisolone Sodium Succinate 40 mg 04/25/17 14:00 04/26/17 14:02 Solu-Medrol - IVPUSH 40 mg TID [facility] Administration Risperidone 2 mg 04/23/17 22:00 04/26/17 11:11 Risperdal - PO 2 mg BID [facility] Administration Tiotropium [place] 1 puff 04/24/17 11:00 04/26/17 12:08 Spiriva - IH 1 puff DAILY [facility] Administration Zolpidem Tartrate 5 mg 04/23/17 21:36 04/25/17 22:18 Ambien - PO 5 mg HS PRN Administration INSOMNIA IMAGING chest xray: no acute pathology chest ct: no acute infilitrate, mild to moderate centribolar emphysematous changes non specific bilateral pulmonary nodules ASSESSMENT/PLAN: 1.Pulmonary copd excrbation - wheezing noted, continue solumedrol TID - continue scheduled symbicort, siriva and duonebs prn - appreciate pulmonary input 2) cardiovascular aortic stent (02/03/17) - continue asa and plavix strict b/p control hypertension - continue lisinopril, b/p at goal hyperlipidemia - continue lipitor 3) psych anxiety/depression - continue wellbutrin/lexapro/xanax/risperdone home doses 4) nephrology acute on chronic renal insufficency - creatine 1.4 baseline 1.0, close monitoring f/e/n hyponatriemia - corrected serum sodium 132 - low sodium/cholesterol diet - replete lytes prn ppx - oob - pt - pepicd dispo: patient requires inpatient admission. Visit type - Emergency Visit Emergency Visit: Yes ED Registration Date: 04/24/17 Care time: The patient presented to the Emergency Department on the above date and was hospitalized for further evaluation of their emergent condition. - New Patient This patient is new to me today: No - Critical Care Critical Care patient: No - Discharge Referral Referred to [facility] Med P.C.: No
[2017-04-26] MEDS: ATORVASTATIN CA 10 MG TABLET (FP) PO SCH (21:35)
[2017-04-26] MEDS: ZOLPIDEM TARTRATE 5 MG TABLET PO PRN (21:36)
[2017-04-26] MEDS: EZETIMIBE 10 MG TABLET (FP) PO SCH (21:36)
[2017-04-27] MEDS: ALBUTEROL SO4 0.083% IH SOL 2.5 MG/3 ML VIAL.NEB. NEB PRN ×2 (06:17→10:07)
[2017-04-27] MEDS: methylPREDNISolone NA SUCC 40 MG/1 ML VIAL IVPUSH SCH (06:17)
[2017-04-27 06:18] VITALS: BP 132/60; PULSE 55; TEMP 97.8
--- NOTE | 2017-04-27 07:34 | PN ---
Progress Note, Physician History of Present Illness: PULMONARY ALERT,FEELING BETTER,DYSPNEA IMPROVED - Current Medication List Current Medications: Active Medications Albuterol Sulfate (Ventolin 0.083% Nebulizer Soln -) 1 amp NEB Q4H PRN PRN Reason: SHORT OF BREATH/WHEEZING Last Admin: 04/27/17 06:17 Dose: 1 amp Alprazolam (Xanax -) 1 mg PO BID [facility] Last Admin: 04/26/17 21:36 Dose: 1 mg Aspirin (Asa -) 81 mg PO DAILY [facility] Last Admin: 04/26/17 11:10 Dose: 81 mg Atorvastatin [place] (Lipitor -) 10 mg PO HS [facility] Last Admin: 04/26/17 21:35 Dose: 10 mg Budesonide/Formoterol Fumarate (Symbicort 160/4.5mcg -) 2 puff IH BID [facility] Last Admin: 04/26/17 21:36 Dose: 2 puff Bupropion HCl (Wellbutrin Xl -) 300 mg PO DAILY [facility] Last Admin: 04/26/17 11:11 Dose: 300 mg Clopidogrel Bisulfate (Plavix -) 75 mg PO DAILY [facility] Last Admin: 04/26/17 11:10 Dose: 75 mg Ezetimibe (Zetia -) 10 mg PO HS [facility] Last Admin: 04/26/17 21:36 Dose: 10 mg Fenofibric Acid (Trilipix -) 45 mg PO DAILY [facility] Last Admin: 04/26/17 12:09 Dose: 45 mg Guaifenesin (Mucinex -) 600 mg PO BID [facility] Last Admin: 04/26/17 21:35 Dose: 600 mg Azithromycin 250 mg/ Dextrose 250 mls @ 250 mls/hr IVPB DAILY [facility] Stop: 04/27/17 10:59 Last Admin: 04/26/17 11:15 Dose: 250 mls/hr Lisinopril (Prinivil) 10 mg PO DAILY [facility] Last Admin: 04/26/17 11:10 Dose: 10 mg Methylprednisolone Sodium Succinate (Solu-Medrol -) 40 mg IVPUSH TID [facility] Last Admin: 04/27/17 06:17 Dose: 40 mg Risperidone (Risperdal -) 2 mg PO BID [facility] Last Admin: 04/26/17 21:36 Dose: 2 mg Tiotropium [place] (Spiriva -) 1 puff IH DAILY [facility] Last Admin: 04/26/17 12:08 Dose: 1 puff Zolpidem Tartrate (Ambien -) 5 mg PO HS PRN PRN Reason: INSOMNIA Last Admin: 04/26/17 21:36 Dose: 5 mg - Objective Vital Signs: Vital Signs Temperature 97.8 F 04/27/17 06:16 Pulse Rate 55 L 04/27/17 06:16 Respiratory Rate 20 04/27/17 06:16 Blood Pressure 132/60 04/27/17 06:16 O2 Sat by Pulse Oximetry (%) 93 L 04/27/17 06:16 Constitutional: Yes: Well Nourished, Calm Eyes: Yes: WNL HENT: Yes: WNL Neck: Yes: WNL Cardiovascular: Yes: Regular Rate and Rhythm, S1, S2 Respiratory: Yes: Wheezes (FEW SCATTERED WHEEZES) Gastrointestinal: Yes: Normal Bowel Sounds, Soft Extremities: Yes: WNL Edema: No Labs: CBC, BMP Problem List - Problems (1) S/P AAA repair Code(s): Z98.890 - OTHER SPECIFIED POSTPROCEDURAL STATES; Z86.79 - PERSONAL HISTORY OF OTHER DISEASES OF THE CIRCULATORY SYSTEM (2) COPD exacerbation Code(s): J44.1 - CHRONIC OBSTRUCTIVE PULMONARY DISEASE W (ACUTE) EXACERBATION (3) Anxiety Code(s): F41.9 - ANXIETY DISORDER, UNSPECIFIED (4) CAD (coronary artery disease) Code(s): I25.10 - ATHSCL HEART DISEASE OF [place] CORONARY ARTERY W/O ANG PCTRS (5) Depression Code(s): F32.9 - MAJOR DEPRESSIVE DISORDER, SINGLE EPISODE, UNSPECIFIED (6) Hypertension Code(s): I10 - ESSENTIAL (PRIMARY) HYPERTENSION (7) ASHD (arteriosclerotic heart disease) Code(s): I25.10 - ATHSCL HEART DISEASE OF [place] CORONARY ARTERY W/O ANG PCTRS Assessment/Plan IMP COPD EXACERBATION ASHD S/P STENT S/P ENDOVASCULAR REPAIR AAA HTN DEPRESSION/ANXIETY PULMONARY NODULES PLAN PREDNISONE 60MG DAILY WITH SLOW TAPER INHALED BRONCHODILATORS O2 ABX PFTS OUTPATIENT F/U CHEST CT 6MONTHS DR PHILLIP Problem List - Problems (1) S/P AAA repair Code(s): Z98.890 - OTHER SPECIFIED POSTPROCEDURAL STATES; Z86.79 - PERSONAL HISTORY OF OTHER DISEASES OF THE CIRCULATORY SYSTEM (2) COPD exacerbation Code(s): J44.1 - CHRONIC OBSTRUCTIVE PULMONARY DISEASE W (ACUTE) EXACERBATION (3) Anxiety Code(s): F41.9 - ANXIETY DISORDER, UNSPECIFIED (4) CAD (coronary artery disease) Code(s): I25.10 - ATHSCL HEART DISEASE OF [place] CORONARY ARTERY W/O ANG PCTRS (5) Depression Code(s): F32.9 - MAJOR DEPRESSIVE DISORDER, SINGLE EPISODE, UNSPECIFIED (6) Hypertension Code(s): I10 - ESSENTIAL (PRIMARY) HYPERTENSION (7) ASHD (arteriosclerotic heart disease) Code(s): I25.10 - ATHSCL HEART DISEASE OF [place] CORONARY ARTERY W/O ANG PCTRS
[2017-04-27] MEDS ORDERED: REFRIGERATED ANITBIOTICS ONE (08:18)
[2017-04-27] MEDS: risperiDONE 1 MG TABLET (FP) PO SCH (10:07)
[2017-04-27] MEDS: CLOPIDOGREL BISULFATE 75 MG TABLET (FP) PO SCH (10:07)
[2017-04-27] MEDS: TIOTROPIUM BROMIDE 18 MCG/INH (DEVICE W/ 5 CAPSULES) IH SCH (10:08)
[2017-04-27] MEDS: ALPRAZolam 0.25 MG TABLET PO SCH (10:08)
[2017-04-27] MEDS: guaiFENesin 600 MG TABLET.ER (FP) PO SCH (10:09)
[2017-04-27] MEDS: LISINOPRIL 10 MG TABLET (FP) PO SCH (10:10)
[2017-04-27] MEDS: BUDESONIDE/FORMETEROL FUMARATE 160/4.5 mcg INHALER IH SCH (10:10)
[2017-04-27] MEDS ORDERED: PT OWN MED DRAWER 7, Y5N ONE (10:26)
[2017-04-27] MEDS: FENOFIBRIC ACID 45 MG CAP PO SCH (10:27)
[2017-04-27] MEDS: ASPIRIN 81 MG CHEWABLE TABLETS PO SCH (10:27)
--- NOTE | 2017-04-27 13:02 | DS ---
Physical Exam: SUBJECTIVE: Patient seen and examined, patient reports feeling much better, ambulatory at bedside, denies any chest pain or shortness of breath. OBJECTIVE: This is a 71 year old male with a history of HTN, anxiety/depression , CAD s/p stent x 1 approx 10 yrs ago, COPD, and endovascular repair of AAA approximately one week ago at [facility] who presented to the ED today complaining of 5 days of cough productive of yellow sputum and wheezing/SOB. ER course was notable for: (1) CXR: no infiltrate (2) Persistent wheezing/SOB after nebs x 4 and prednisone, XE=447 (3) Cr 1.5, baseline Vital Signs Period Temp Pulse Resp BP Sys/Gonzales Pulse Ox Last 24 Hr 97.3 F-97.8 F 55-64 19-20 126-133/56-61 93-94 PHYSICAL EXAM GENERAL: The patient is awake, alert, and fully oriented, in no acute distress. HEAD: Normal with no signs of trauma. EYES: PERRL, extraocular movements intact, sclera anicteric, conjunctiva clear. ENT: Ears normal, nares patent, oropharynx clear without exudates, moist mucous membranes. NECK: Trachea midline, full range of motion, supple. LUNGS: Breath sounds equal, course rhonchi, no wheezes, no crackles, no accessory muscle use. HEART: Regular rate and rhythm, S1, S2 without murmur, rub or gallop. ABDOMEN: Soft, nontender, nondistended, normoactive bowel sounds, no guarding, no rebound, no hepatosplenomegaly, no masses. EXTREMITIES: 2+ pulses, warm, well-perfused, no edema. NEUROLOGICAL: Cranial nerves II through XII grossly intact. Normal speech, gait not observed. PSYCH: Normal mood, normal affect. SKIN: Warm, dry, normal turgor, no rashes or lesions noted. LABS CBC WBC 14.3 K/mm3 (4.0-10.8) H 04/26/17 07:30 RBC 3.55 M/mm3 (4.00-5.60) L 04/26/17 07:30 Hgb 11.1 GM/dl (11.7-16.9) L 04/26/17 07:30 Hct 33.3 % (35.4-49) L 04/26/17 07:30 MCV 94.0 fl (80-96) 12/13/17 07:30 MCH 31.2 pg (25.7-33.7) 04/26/17 07:30 MCHC 33.2 g/dl (32.0-35.9) 04/26/17 07:30 RDW 13.4 % (11.9-15.9) 04/26/17 07:30 Plt Count 410 K/MM3 (134-434) 04/26/17 07:30 MPV 7.7 fl (7.5-11.1) 04/26/17 07:30 Neutrophils % No Result Required. 04/26/17 07:30 Neutrophils % (Manual) 87.0 % (42.8-82.8) H 04/26/17 07:30 Band Neutrophils % 4.0 % (0-10) 04/26/17 07:30 Lymphocytes % No Result Required. 04/26/17 07:30 Lymphocytes % (Manual) 6.0 % (8-40) L 04/26/17 07:30 Monocytes % 4.6 % (3.8-10.2) 04/25/17 07:30 Monocytes % (Manual) 3 % (3.8-10.2) L 04/26/17 07:30 Eosinophils % 0.0 % (0-4.5) D 04/25/17 07:30 Basophils % 0.1 % (0-2.0) D 04/25/17 07:30 Platelet Estimate Adequate 04/26/17 07:30 CMP Sodium 131 mmol/L (136-145) L 04/26/17 07:30 Potassium 4.9 mmol/L (3.5-5.1) 04/26/17 07:30 Chloride 101 mmol/L (98-107) 04/26/17 07:30 Carbon Dioxide 23 mmol/L (22-28) 04/26/17 07:30 Anion Gap 7 (8-16) L 04/26/17 07:30 BUN 31 mg/dl (7-18) H D 04/26/17 07:30 Creatinine 1.4 mg/dl (0.6-1.3) H 04/26/17 07:30 Creat Clearance w eGFR 49.68 (>60) 04/26/17 07:30 Random Glucose 135 mg/dl (74-106) H 04/26/17 07:30 Calcium 9.3 mg/dl (8.4-10.2) 04/26/17 07:30 Phosphorus 3.9 mg/dl (2.5-4.6) 04/26/17 07:30 Magnesium 2.0 mg/dL (1.8-2.4) 04/26/17 07:30 Total Bilirubin 0.4 mg/dl (0.2-1.0) D 04/26/17 07:30 AST 17 U/L (10-42) 04/26/17 07:30 ALT 13 U/L (10-40) 04/26/17 07:30 Alkaline Phosphatase 55 U/L (32-92) 04/26/17 07:30 Creatine Kinase 106 IU/L (39-308) 04/23/17 08:35 Troponin I < 0.03 ng/ml (0.03-0.50) L 04/23/17 08:35 Total Protein 6.0 g/dl (6.4-8.3) L 04/26/17 07:30 Albumin 3.4 g/dl (3.5-5.0) L 04/26/17 07:30 IMAGING chest xray: no acute pathology chest ct: no acute infilitrate, mild to moderate centribolar emphysematous changes non specific bilateral pulmonary nodules HOSPITAL COURSE: 1 copd excrbation,started on solumedrol iv with taper,symbicort, spiriva and duonebs prn, pulmonary, Dr Hines consulted and followed 2) aortic stent (02/03/17), continued asa and plavix with strict b/p control, past medical history of hypertension continue lisinopril, b/p at goal, hyperlipidemia continued lipitor 3) anxiety/depression, continued wellbutrin/lexapro/xanax/risperdone home doses 4) acute on chronic renal insufficency, creatine 1.4 baseline 1.0, close monitoring PLAN - discharge with VNS - continue prednisone, symbicort, and spirva - strict follow up with pulmonary Date of Admission:04/24/17 Date of Discharge: 04/27/17 Minutes to complete discharge: 45 Discharge Summary Reason For Visit: OBSTRUCTIVE CHRONIC BRONCHITIS W/ EXACERBATION Current Active Problems ASHD (arteriosclerotic heart disease) (Acute) COPD exacerbation (Acute) S/P AAA repair (Acute) Condition: Improved - Instructions Diet, Activity, Other Instructions: you were admitted to the hospital for COPD exacerbation continue low cholesterol diet please take prednisone as prescribed continue spiriva and symbicort daily albuterol nebulizer or inhaler every 4 hours as needed for shortness of breath or wheezing please take all medications as prescribed please follow up with pulmonary within 2 weeks if any new or persistent symptom develop please return to the emergency department. Referrals: Chandana Hines MD [Staff Physician] - 2 Weeks Disposition: VNS/HOME HEALTH CARE - Home Medications Comprehensive Discharge Medication List: Ambulatory Orders Clopidogrel Bisulfate [Plavix -] 75 mg PO DAILY 01/18/13 Aspirin [ASA -] 81 mg PO DAILY 04/29/14 Escitalopram Oxalate [Lexapro -] 30 mg PO DAILY 04/29/14 Alprazolam [Xanax] 1 mg PO BID 11/19/14 Bupropion HCl [Wellbutrin Xl -] 300 mg PO DAILY 06/14/15 Risperidone 2 mg PO BID 11/24/15 Zolpidem Tartrate [Ambien] 10 mg PO HS 11/25/15 Budesonide/Formeterol Fumarate [SYMBICORT 160/4.5mcg -] 1 inh PO BID 10/28/16 Lisinopril 10 mg PO DAILY 10/28/16 Fenofibrate Nanocrystallized [Tricor] 48 mg PO DAILY 10/29/16 Atorvastatin Ca [Lipitor] 10 mg PO HS tablet 10/30/16 Ezetimibe [Zetia -] 10 mg PO HS tablet 10/30/16 Ondansetron HCl [Zofran] 4 mg PO Q8H PRN #10 tablet 02/18/17 Clopidogrel Bisulfate [Plavix -] 75 mg PO DAILY 04/23/17 This patient is new to me today: No Emergency Visit: Yes ED Registration Date: 04/24/17 Care time: The patient presented to the Emergency Department on the above date and was hospitalized for further evaluation of their emergent condition. Critical Care patient: No - Discharge Referral Referred to [facility] Med [facility] No
== END 2017-04-27 18:03 | disposition home health service (06) | DRG 191 ==
LOC: FER 07:05 → FM/S 12:35 → OBSVTOIN 04-24 11:42 → FM/S 04-26 00:34
PROVIDERS: ADMIT Hospitalist; ATTEND Nurse Practitioner Family
DX: J44.1 Chronic obstructive pulmonary disease with (acute) exacerbation (principal); E87.1 Hypo-osmolality and hyponatremia; Z87.891 Personal history of nicotine dependence; I10 Essential (primary) hypertension; F41.9 Anxiety disorder, unspecified; F32.9 Major depressive disorder, single episode, unspecified; I25.10 Atherosclerotic heart disease of native coronary artery without angina pectoris; R91.1 Solitary pulmonary nodule; N28.9 Disorder of kidney and ureter, unspecified
CPT/HCPCS: 36415; 71020-TC; 71250-TC; 80053; 82550; 83735; 84100; 84484; 85025; 93005; 94010; 94640; 97116-GP; 97162-GP; 99283-25; G0378; J2794

== ENCOUNTER 2017-06-22 12:01 | Emergency (ER) | payer OTHER, BC ==
[2017-06-22 12:10] VITALS: TEMP 97.4
--- NOTE | 2017-06-22 12:15 | PDOC ---
History of Present Illness - General Chief Complaint: Shortness of Breath Stated Complaint: SHORT OF BREATH Time Seen by Provider: 06/22/17 12:04 History Source: Patient Exam Limitations: No Limitations - History of Present Illness Initial Comments: 06/22/17 12:13 72 y/o male with hx of COPD, tardive dyskenesia, presents to ER with increase SOB since yesterday. Using inhalers. 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 Hines his books binder. No N/V/d/ C. States to have chest pain and back pain. This is on / off for many years. Breathing treatments not working. 06/22/17 14:03 Severity: reports: mild Past History - Past Medical History Allergies/Adverse Reactions: Allergies Allergy/AdvReac Type Severity Reaction Status Date / Time No Known Allergies Allergy Verified 04/23/17 07:18 Home Medications: Ambulatory Orders Aspirin [ASA -] 81 mg PO DAILY 04/29/14 Escitalopram Oxalate [Lexapro -] 30 mg PO DAILY 04/29/14 Alprazolam [Xanax] 1 mg PO BID 11/19/14 Bupropion HCl [Wellbutrin Xl -] 300 mg PO DAILY 06/14/15 Risperidone 2 mg PO BID 11/24/15 Zolpidem Tartrate [Ambien] 10 mg PO HS 11/25/15 Lisinopril 10 mg PO DAILY 10/28/16 Fenofibrate Nanocrystallized [Tricor] 48 mg PO DAILY 10/29/16 Atorvastatin Ca [Lipitor] 10 mg PO HS tablet 10/30/16 Ezetimibe [Zetia -] 10 mg PO HS tablet 10/30/16 Ondansetron HCl [Zofran] 4 mg PO Q8H PRN #10 tablet 02/18/17 Clopidogrel Bisulfate [Plavix -] 75 mg PO DAILY 04/23/17 Albuterol 0.083% Nebulizer Aletha [Ventolin 0.083% Nebulizer Soln -] 1 amp NEB Q4H PRN #120 amp 04/27/17 Albuterol Sulfate Inhaler - [Ventolin Hfa Inhaler -] 2 inh PO Q4H PRN #1 inh Budesonide/Formeterol Fumarate [SYMBICORT 160/4.5mcg -] 2 puff IH BID #1 inhaler 04/27/17 Guaifenesin [Mucinex -] 600 mg PO BID #30 tablet.er 04/27/17 Tiotropium [place] [Spiriva] 1 puff IH DAILY #1 inh 04/27/17 Prednisone [Deltasone] 20 mg PO BID #10 tablet 06/22/17 Anemia: No Asthma: No Cancer: No Cardiac Disorders: Yes (cardiac [id number], history of OK 2005) CVA: No COPD: Yes CHF: No DVT: No Dementia: (FORGETFUL) Diabetes: No GI Disorders: Yes (HEARTBURN) Disorders: No HTN: Yes Hypercholesterolemia: Yes Liver Disease: No Psychiatric Problems: Yes Seizures: No Thyroid Disease: No - Surgical History Abdominal Surgery: Yes (AAA 02/03/2017) Appendectomy: No Cardiac Surgery: Yes (cardiac stent 2005 & 04/2017) Cholecystectomy: No Lung Surgery: No Neurologic Surgery: No Orthopedic Surgery: No - Suicide/Smoking/Psychosocial Hx Smoking Status: No Smoking History: Former smoker Have you smoked in the past 12 months: No Number of Cigarettes Smoked Daily: 0 If you are a former smoker, when did you quit?: 2005 Information on smoking cessation initiated: No Hx Alcohol Use: Yes Drug/Substance Use Hx: No Substance Use Type: Alcohol Hx Substance Use Treatment: Yes Review of Systems - Review of Systems Able to Perform ROS?: Yes Is the patient limited Italian proficient: No Constitutional: No: Chills, Fever HEENTM: No: Throat Pain Respiratory: Yes: Cough, Shortness of Breath Cardiac (ROS): Yes: Chest Pain ABD/GI: No: Diarrhea, Nausea, Vomiting Musculoskeletal: Yes: Back Pain Integumentary: No: Bruising All Other Systems: Reviewed and Negative *Physical Exam - Vital Signs Last Vital Signs Temp Pulse Resp BP Pulse Ox 97.4 F L 56 L 20 154/129 99 06/22/17 12:03 06/22/17 12:03 06/22/17 12:03 06/22/17 12:03 06/22/17 12:03 - Physical Exam General Appearance: Yes: Nourished, Appropriately Dressed. No: Apparent Distress HEENT: positive: EOMI, CHARAN, Normal ENT Inspection Neck: positive: Trachea midline, Normal Thyroid, Supple. negative: Tender, Rigid Respiratory/Chest: positive: Lungs Clear, Normal Breath Sounds. negative: Chest Tender, Respiratory Distress Cardiovascular: positive: Regular Rhythm, Regular Rate, S1, S2. negative: Edema , JVD, Murmur Vascular Pulses: Femoral (R): 4+, Femoral (L): 4+, Carotid (R): 4+, Carotid (L) : 4+, Dorsalis-Pedis (R): 4+, Doralis-Pedis (L): 4+ Gastrointestinal/Abdominal: positive: Normal Bowel Sounds, Flat, Soft. negative : Tender, Organomegaly, Pulsatile Mass Lymphatic: negative: Adenopathy, Tenderness, Other Musculoskeletal: positive: Normal Inspection. negative: CVA Tenderness Extremity: positive: Normal Capillary Refill, Normal Inspection, Normal Range of Motion Integumentary: positive: Normal Color, Dry, Warm Neurologic: positive: powder shoveler II-XII NML intact, Fully Oriented, Alert, Normal Mood/ Affect, Normal Response, Motor Strength 5/5 (tongue thrusting from tardive dyskensia) Heart Score/ECG Review - ECG Intrepretation Rhythm: Regular Rhythm Comment:: 06/22/17 12:49 At 1244 HR 57 sinus bradycardia, no STEMI ED Treatment Course - LABORATORY CBC & Chemistry Diagram: 06/22/17 12:50 06/22/17 12:50 - ADDITIONAL ORDERS Additional order review: 06/22/17 14:38 CXR NAD, graft placement seen After treatment, pt is feeling better. Will discharge home on Prednisone Follow up with Dr. Hines, if worsen return to ER Pt is in agreement with plan Progress Note - Progress Note Progress Note: Consider COPD exzacerbation ill do cardiac work up as well and treat for COPD. Lungs clear after treatment, pt is feeling better. Wishes to go home. 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 Hines If worsen return to ER - Post Discharge Activity
[2017-06-22] MEDS ORDERED: ALBUTEROL SO4 2.5/IPRATROPIUM 0.5 INH SOL 3 ML VIAL.NEB. NEB ONE ×2 (12:27→12:38)
[2017-06-22] MEDS ORDERED: methylPREDNISolone NA SUCC 125 MG/2 ML VIAL IVPB ONE (12:27)
[2017-06-22] MEDS ORDERED: methylPREDNISolone NA SUCC 125 MG/2 ML VIAL ONE (12:38)
[2017-06-22 13:19] LABS: BASO % 0.3 % (0-2.0); EOS % 1.2 % (0-4.5); HEMATOCRIT 36.9 % (35.4-49); HEMOGLOBIN 12.8 GM/dl (11.7-16.9); LYMPH % 13.8 % (8-40); MCH 31.3 pg (25.7-33.7); MCHC 34.7 g/dl (32.0-35.9); MEAN CELL VOLUME 90.3 fl (80-96); MEAN PLT VOLUME 7.1 fl (7.5-11.1); MONO % 7.6 % (3.8-10.2); NEUT % 77.1 % (42.8-82.8); PLATELET COUNT 387 K/MM3 (134-434); RBC 4.08 M/mm3 (4.00-5.60); RDW 13.4 % (11.9-15.9); WHITE BLOOD COUNT 8.6 K/mm3 (4.0-10.8)
[2017-06-22 13:27] LABS: ALBUMIN 3.8 g/dl (3.5-5.0); ALK PHOS 101 U/L (32-92); ANION GAP 8 (8-16); BLOOD UREA NITROGEN 25 mg/dl (7-18); CHLORIDE 101 mmol/L (98-107); CO2 19 mmol/L (22-28); CREATININE 1.3 mg/dl (0.6-1.3); GLUCOSE,RANDOM 104 mg/dl (74-106); POTASSIUM 4.1 mmol/L (3.5-5.1); SGOT/AST 27 U/L (10-42); SGPT/ALT 26 U/L (10-40); SODIUM 128 mmol/L (136-145); TOT PROT 6.5 g/dl (6.4-8.3)
[2017-06-22 13:52] LABS: BILIRUBIN,TOTAL 0.5 mg/dl (0.2-1.0)
[2017-06-22 14:40] VITALS: BP 142/50; PULSE 59
--- NOTE | 2017-06-22 16:52 | EKG ---
Test Reason : Blood Pressure : / mmHG Vent. Rate : 057 BPM Atrial Rate : 057 BPM P-R Int : 208 ms QRS Dur : 096 ms QT Int : 426 ms P-R-T Axes : 105 -30 -05 degrees QTc Int : 414 ms SINUS BRADYCARDIA LEFT AXIS DEVIATION INFERIOR INFARCT (CITED ON OR BEFORE 21-AUG-2016) WHEN COMPARED WITH ECG OF 23-APR-2017 08:26, COMPARED TO EKG NO SIGNIFICANT CHANGE IS FOUND Confirmed by MD DHAVAL, MYLES ([id number]) on 06/22/2017 4:51:59 PM Referred By: MAKAYLA KILGORE Confirmed By:MYLES PUENTES MD
== END 2017-06-22 14:53 | disposition home or self-care (01) ==
LOC: FER 12:01
DX: J44.1 Chronic obstructive pulmonary disease with (acute) exacerbation (principal); G24.01 Drug induced subacute dyskinesia; I10 Essential (primary) hypertension; E78.00 Pure hypercholesterolemia, unspecified; F03.90 Unspecified dementia, unspecified severity, without behavioral disturbance, psychotic disturbance, mood disturbance, and anxiety; Z87.891 Personal history of nicotine dependence
CPT/HCPCS: 36415; 71046-TC-FY; 80053; 84484; 85025; 93005; 99283-25

== ENCOUNTER 2017-07-16 15:34 | Inpatient (IN) | payer OTHER, BC ==
--- NOTE | 2017-07-16 15:41 | PDOC ---
History of Present Illness - History of Present Illness Initial Comments: 07/16/17 16:11 Patient is a 72 M with PMHx of COPD, tardive dyskinesia, HTN, anxiety/depression , and CAD, who presents today for chest pain and shortness of breath. Patient states that a couple of days ago he started experiencing diffuse chest pain that he describes as stabbing, intermittent, 7-8/10, worse when supine and has worsened today in particular. He also reports COPD exacerbation and has tried using his inhaler, spiriva, and his nebulizer with little relief. He has a hoarse productive cough but swallows his sputum. He also reports an associated sore throat. He denies fever, chills, nausea, vomiting. He denies loc, lightheadedness, or diaphoresis. Medical Aide: Dr. Hines Surgical Hx: cardiac stent ( ~10 years ago), endovascular repair of AAA (Apr 2017) Social Hx: EtOH use, former smoker. <Rani Washington - Last Filed: 07/16/17 16:53> <Haleigh Epstein - Last Filed: 07/16/17 18:06> - General Chief Complaint: Shortness of Breath Stated Complaint: SOB Time Seen by Provider: 07/16/17 15:41 Past History <Rani Washington - Last Filed: 07/16/17 16:53> - Past Medical History Anemia: No Asthma: No Cancer: No Cardiac Disorders: Yes (cardiac [id number], history of OR 2005) CVA: No COPD: Yes CHF: No DVT: No Dementia: (FORGETFUL) Diabetes: No GI Disorders: Yes (HEARTBURN) Disorders: No HTN: Yes Hypercholesterolemia: Yes Liver Disease: No Psychiatric Problems: Yes Seizures: No Thyroid Disease: No - Surgical History Abdominal Surgery: Yes (AAA 02/03/2017) Appendectomy: No Cardiac Surgery: Yes (cardiac stent 2005 & 04/2017) Cholecystectomy: No Lung Surgery: No Neurologic Surgery: No Orthopedic Surgery: No - Suicide/Smoking/Psychosocial Hx Smoking Status: No Smoking History: Former smoker Have you smoked in the past 12 months: No Number of Cigarettes Smoked Daily: 0 If you are a former smoker, when did you quit?: 2006 Hx Alcohol Use: Yes Drug/Substance Use Hx: No Substance Use Type: Alcohol Hx Substance Use Treatment: Yes <Haleigh Epstein Last Filed: 07/16/17 18:06> - Past Medical History Allergies/Adverse Reactions: Allergies Allergy/AdvReac Type Severity Reaction Status Date / Time No Known Allergies Allergy Verified 07/16/17 15:35 Home Medications: Ambulatory Orders Aspirin [ASA -] 81 mg PO DAILY 04/29/14 Escitalopram Oxalate [Lexapro -] 30 mg PO DAILY 04/29/14 Alprazolam [Xanax] 1 mg PO BID 11/19/14 Bupropion HCl [Wellbutrin Xl -] 300 mg PO DAILY 06/14/15 Risperidone 2 mg PO BID 11/24/15 Zolpidem Tartrate [Ambien] 10 mg PO HS 11/25/15 Lisinopril 10 mg PO DAILY 10/28/16 Fenofibrate Nanocrystallized [Tricor] 48 mg PO DAILY 10/29/16 Atorvastatin Ca [Lipitor] 10 mg PO HS tablet 10/30/16 Ezetimibe [Zetia -] 10 mg PO HS tablet 10/30/16 Clopidogrel Bisulfate [Plavix -] 75 mg PO DAILY 04/23/17 Albuterol Sulfate Inhaler - [Ventolin Hfa Inhaler -] 2 inh PO Q4H PRN #1 inh Budesonide/Formeterol Fumarate [SYMBICORT 160/4.5mcg -] 2 puff IH BID #1 inhaler 04/27/17 Guaifenesin [Mucinex -] 600 mg PO BID #30 tablet.er 04/27/17 Tiotropium [place] [Spiriva] 1 puff IH DAILY #1 inh 04/27/17 Review of Systems - Review of Systems Comments:: 07/16/17 16:11 GENERAL/CONSTITUTIONAL: No fever or chills. No weakness. HEAD, EYES, EARS, NOSE AND THROAT: No change in vision. No ear pain or discharge. +sore throat. CARDIOVASCULAR: No chest pain. +shortness of breath. RESPIRATORY: +cough, + wheezing, or hemoptysis. GASTROINTESTINAL: No nausea, vomiting, diarrhea or constipation. GENITOURINARY: No dysuria, frequency, or change in urination. MUSCULOSKELETAL: No joint or muscle swelling or pain. No neck or back pain. SKIN: No rash NEUROLOGIC: No headache, vertigo, loss of consciousness, or change in strength/ sensation. ENDOCRINE: No increased thirst. No abnormal weight change. HEMATOLOGIC/LYMPHATIC: No anemia, easy bleeding, or history of blood clots. ALLERGIC/IMMUNOLOGIC: No hives or skin allergy. <Rani Washington - Last Filed: 07/16/17 16:53> *Physical Exam - Vital Signs Last Vital Signs Temp Pulse Resp BP Pulse Ox 97.8 F 88 19 160/78 99 07/16/17 15:35 07/16/17 15:35 07/16/17 15:35 07/16/17 15:35 07/16/17 15:35 - Physical Exam Comments: 07/16/17 16:11 GENERAL: Awake, alert, and fully oriented, in no acute distress HEAD: No signs of trauma EYES: PERRLA, EOMI, sclera anicteric, conjunctiva clear ENT: Auricles normal inspection, hearing grossly normal, nares patent, oropharynx clear without exudates. Moist mucosa NECK: Normal ROM, supple, no lymphadenopathy, JVD, or masses LUNGS: Wheezing at the right base. Slightly tachypneic. Speaking in full sentences. no crackles HEART: Distant, no murmurs, rubs or gallops ABDOMEN: Soft, nontender, normoactive bowel sounds. No guarding, no rebound. No masses EXTREMITIES: Normal range of motion, no edema. No clubbing or cyanosis. No cords, erythema, or tenderness NEUROLOGICAL: Has tardive dyskinesia. Cranial nerves II through XII grossly intact. Normal speech, normal gait SKIN: Warm, Dry, normal turgor, no rashes or lesions noted. <Rani Washington - Last Filed: 07/16/17 16:53> Heart Score/ECG Review - ECG Intrepretation Comment:: 07/16/17 15:53 Vent rate 65 bpm Normal sinus rhythm with sinus arrhythmia. Inferior infarct Abnormal ECG <Rani Washington - Last Filed: 07/16/17 16:53> ED Treatment Course - LABORATORY CBC & Chemistry Diagram: 07/16/17 16:02 07/16/17 16:02 <Rani Washington - Last Filed: 07/16/17 16:53> - LABORATORY CBC & Chemistry Diagram: 07/16/17 16:02 07/16/17 16:02 <Haleigh Epstein - Last Filed: 07/16/17 18:06> Medical Decision Making - Medical Decision Making 07/16/17 16:45 Pt presents to the ED complaining of diffuse chest pressure that has been constant for 24 hours. He is also complaining of wheezing and shortness of breath that is consistent with prior COPD exacerbations. Patient has multiple cardiac risk factors--though his chest pain is very atypical and his EKG shows no evidence of ischemia, his HEART score is at least 4. Given this, I feel that he should be observed to rule out ACS even if initial troponin is negative. Shortness of breath is most consistent with COPD exacerbation. Will treat with nebs and steroids and reassess. <Haleigh Epstein - Last Filed: 07/16/17 18:06> *DC/Admit/Observation/Transfer - Attestations Scribe Attestion: 07/16/17 16:11 Documentation prepared by Rani Washington, acting as medical device sales representative for Haleigh Epstein MD. <Rani Washington - Last Filed: 07/16/17 16:53> - Discharge Dispostion Admit: Yes <Haleigh Epstein - Last Filed: 07/16/17 18:06> Diagnosis at time of Disposition: Chest pain Qualifiers: Chest pain type: unspecified Qualified Code(s): R07.9 - Chest pain, unspecified - Discharge Dispostion Condition at time of disposition: Good
[2017-07-16] MEDS ORDERED: ALBUTEROL SO4 2.5/IPRATROPIUM 0.5 INH SOL 3 ML VIAL.NEB. NEB ONE ×2 (15:59→16:15)
[2017-07-16] MEDS ORDERED: predniSONE 20 MG TABLET (UD) PO ONE (16:01)
[2017-07-16] MEDS: ALBUTEROL SO4 2.5/IPRATROPIUM 0.5 INH SOL 3 ML VIAL.NEB. NEB SCH ×4 (16:03→16:50)
[2017-07-16] MEDS ORDERED: predniSONE 20 MG TABLET (UD) ONE (16:15)
[2017-07-16 16:21] LABS: BASO % 0.2 % (0-2.0); EOS % 2.8 % (0-4.5); HEMATOCRIT 35.4 % (35.4-49); HEMOGLOBIN 12.1 GM/dl (11.7-16.9); LYMPH % 10.6 % (8-40); MCH 31.4 pg (25.7-33.7); MCHC 34.2 g/dl (32.0-35.9); MEAN CELL VOLUME 91.8 fl (80-96); MEAN PLT VOLUME 6.8 fl (7.5-11.1); MONO % 9.9 % (3.8-10.2); NEUT % 76.5 % (42.8-82.8); PLATELET COUNT 349 K/MM3 (134-434); RBC 3.86 M/mm3 (4.00-5.60)
[2017-07-16 16:34] LABS: ALBUMIN 3.5 g/dl (3.5-5.0); ALK PHOS 79 U/L (32-92); ANION GAP 7 (8-16); BILIRUBIN,TOTAL 0.1 mg/dl (0.2-1.0); BLOOD UREA NITROGEN 16 mg/dl (7-18); CALCIUM 8.8 mg/dl (8.4-10.2); CHLORIDE 100 mmol/L (98-107); CO2 24 mmol/L (22-28); CREATININE 1.5 mg/dl (0.6-1.3); GLUCOSE,RANDOM 104 mg/dl (74-106); POTASSIUM 4.4 mmol/L (3.5-5.1); SGOT/AST 21 U/L (10-42); SGPT/ALT 18 U/L (10-40); SODIUM 131 mmol/L (136-145); TOT PROT 6.1 g/dl (6.4-8.3)
[2017-07-16] MEDS ORDERED: CEFTRIAXONE 1 GM in DEXTROSE 5%-WATER - 50 ML IVPB ONE (17:40)
[2017-07-16] MEDS ORDERED: AZITHROMYCIN IVPB 500 MG in DEXTROSE 5%-WATER - 250 ML IVPB ONE (17:40)
[2017-07-16] MEDS ORDERED: cefTRIAXone SODIUM 1 GM VIAL ONE (17:52)
[2017-07-16] MEDS ORDERED: AZITHROMYCIN 500 MG VIAL IVPB ONE (17:52)
[2017-07-16] MEDS ORDERED: ACETAMINOPHEN 325 MG TABLET (FP) ONE (17:58)
[2017-07-16] MEDS ORDERED: ACETAMINOPHEN 325 MG TABLET (FP) PO ONE (18:00)
[2017-07-16 18:44] VITALS: BMI 29.6
--- NOTE | 2017-07-16 20:06 | HP ---
Admitting History and Physical - Admission Chief Complaint: Chest Pain, SOB, Cough History of Present Illness: This is a 72 y/o man with a PMHx of COPD, CAD s/p stentx1, HTN. Who presents to the ED with chest pain, SOB x 2 days. Patient reports the pain as sharp and intermittent. He reports having a productive cough and wheezing. Patient denies fever, chills, dizziness, AP, N/V/D, constipation, dysuria. Pulm: Dr. Hines History Source: Patient Limitations to Obtaining History: No Limitations - Past Medical History Cardiovascular: Yes: CAD, HTN, Hyperlipdemia, SC Pulmonary: Yes: COPD Gastrointestinal: Yes: Other (umbilical hernia) Psych: Yes: Anxiety, Depression - Past Surgical History Past Surgical History: Yes: None, Stent - Smoking History Smoking history: Former smoker Have you smoked in the past 12 months: No Aproximately how many cigarettes per day: 0 If you are a former smoker, when did you quit?: 2006 - Alcohol/Substance Use Hx Alcohol Use: Yes History of Substance Use: reports: None - Social History ADL: Independent History of Recent Travel: No Home Medications - Allergies Allergies/Adverse Reactions: Allergies Allergy/AdvReac Type Severity Reaction Status Date / Time No Known Allergies Allergy Verified 07/16/17 15:35 - Home Medications Home Medications: Ambulatory Orders Aspirin [ASA -] 81 mg PO DAILY 04/29/14 Escitalopram Oxalate [Lexapro -] 30 mg PO DAILY 04/29/14 Alprazolam [Xanax] 1 mg PO BID 11/19/14 Bupropion HCl [Wellbutrin Xl -] 300 mg PO DAILY 06/14/15 Risperidone 2 mg PO BID 11/24/15 Zolpidem Tartrate [Ambien] 10 mg PO HS 11/25/15 Lisinopril 10 mg PO DAILY 10/28/16 Fenofibrate Nanocrystallized [Tricor] 48 mg PO DAILY 10/29/16 Atorvastatin Ca [Lipitor] 10 mg PO HS tablet 10/30/16 Ezetimibe [Zetia -] 10 mg PO HS tablet 10/30/16 Clopidogrel Bisulfate [Plavix -] 75 mg PO DAILY 04/23/17 Albuterol Sulfate Inhaler - [Ventolin Hfa Inhaler -] 2 inh PO Q4H PRN #1 inh Budesonide/Formeterol Fumarate [SYMBICORT 160/4.5mcg -] 2 puff IH BID #1 inhaler 04/27/17 Guaifenesin [Mucinex -] 600 mg PO BID #30 tablet.er 04/27/17 Tiotropium [place] [Spiriva] 1 puff IH DAILY #1 inh 04/27/17 Review of Systems - Review of Systems Constitutional: reports: No Symptoms Eyes: reports: No Symptoms HENT: reports: No Symptoms Neck: reports: No Symptoms Cardiovascular: reports: Chest Pain, Shortness of Breath Respiratory: reports: Cough, SOB, SOB on Exertion, Wheezing Gastrointestinal: reports: No Symptoms Genitourinary: reports: No Symptoms Breasts: reports: No Symptoms Reported Musculoskeletal: reports: No Symptoms Integumentary: reports: No Symptoms Neurological: reports: No Symptoms Endocrine: reports: No Symptoms Hematology/Lymphatic: reports: No Symptoms Psychiatric: reports: No Symptoms Physical Examination Vital Signs: Vital Signs Temperature 98.7 F 07/16/17 18:33 Pulse Rate 120 H 07/16/17 18:33 Respiratory Rate 20 07/16/17 18:33 Blood Pressure 118/95 07/16/17 18:33 O2 Sat by Pulse Oximetry (%) 97 07/16/17 18:33 Labs: CBC, BMP 07/16/17 16:02 07/16/17 16:02 Imaging - Results Chest X-ray: Image Reviewed EKG: Image Reviewed Problem List - Problems (1) Chest pain Code(s): R07.9 - CHEST PAIN, UNSPECIFIED Qualifiers: Chest pain type: unspecified Qualified Code(s): R07.9 - Chest pain, unspecified (2) COPD exacerbation Code(s): J44.1 - CHRONIC OBSTRUCTIVE PULMONARY DISEASE W (ACUTE) EXACERBATION (3) CAD (coronary artery disease) Code(s): I25.10 - ATHSCL HEART DISEASE OF [place] CORONARY ARTERY W/O ANG PCTRS (4) Anxiety Code(s): F41.9 - ANXIETY DISORDER, UNSPECIFIED (5) Depression Code(s): F32.9 - MAJOR DEPRESSIVE DISORDER, SINGLE EPISODE, UNSPECIFIED (6) Chronic alcohol abuse Code(s): F10.10 - ALCOHOL ABUSE, UNCOMPLICATED (7) DVT prophylaxis Code(s): [id number] - Assessment/Plan This is a 72 y/o man with a PMHx of: CAD s/p stent x1, HTN, COPD, Anxiety, Depression, Tardive Dyskinesia. Placed on Tele observation, CP r/o SC, Acute COPD Exacerbation. Plan: 1. Chest pain- r/o SC vs Unstable Angina, HEART Score 4, Cardiac Monitoring, Serial Enzymes x2, EKG Appreciate Cardiology consult, Echo in am, Asa, Lipid Panel, HgbA1c in am, Visit type - Emergency Visit Emergency Visit: Yes ED Registration Date: 07/16/17 Care time: The patient presented to the Emergency Department on the above date and was hospitalized for further evaluation of their emergent condition. - New Patient This patient is new to me today: Yes Date on this admission: 07/16/17 - Critical Care Critical Care patient: No Hospitalist Screening - Colonoscopy Questionnaire Colonoscopy Questionnaire: Colonoscopy Questionnaire
[2017-07-17] MEDS ORDERED: ZOLPIDEM TARTRATE 5 MG TABLET PO ONE (01:14)
[2017-07-17] MEDS: risperiDONE 1 MG TABLET (FP) PO SCH ×3 (02:42→22:03)
[2017-07-17] MEDS: guaiFENesin 200 MG/10 ML 10 ML UNIT-DOSE CUPS PO PRN ×2 (02:42→14:19)
[2017-07-17 07:49] LABS: EOS % 0.2 % (0-4.5); HEMATOCRIT 33.2 % (35.4-49); HEMOGLOBIN 11.2 GM/dl (11.7-16.9); LYMPH % 9.2 % (8-40); MCH 30.8 pg (25.7-33.7); MCHC 33.7 g/dl (32.0-35.9); MEAN CELL VOLUME 91.6 fl (80-96); MEAN PLT VOLUME 6.8 fl (7.5-11.1); MONO % 9.8 % (3.8-10.2); NEUT % 80.8 % (42.8-82.8); PLATELET COUNT 370 K/MM3 (134-434); RBC 3.62 M/mm3 (4.00-5.60); RDW 13.4 % (11.9-15.9); WHITE BLOOD COUNT 5.5 K/mm3 (4.0-10.8)
[2017-07-17 08:43] LABS: ANION GAP 5 (8-16); BLOOD UREA NITROGEN 16 mg/dl (7-18); CALCIUM 8.8 mg/dl (8.4-10.2); CHLORIDE 105 mmol/L (98-107); CO2 24 mmol/L (22-28); CREATININE 1.1 mg/dl (0.6-1.3); GLUCOSE,RANDOM 118 mg/dl (74-106); MAGNESIUM 1.9 mg/dL (1.8-2.4); PHOSPHOROUS 3.1 mg/dl (2.5-4.6); POTASSIUM 4.5 mmol/L (3.5-5.1); SODIUM 134 mmol/L (136-145)
[2017-07-17 08:44] LABS: CHOLESTEROL 131 mg/dl; HDL CHOLESTEROL 37 mg/dl (29-89); LDL CHOLESTEROL (ONLY DFH) 83 mg/dl; TRIGLYCERIDES 55 mg/dl (35-160)
[2017-07-17] MEDS ORDERED: MAGNESIUM SULF 50% (8.12 MEQ/2 ML-1 GM VIAL) IVPB ONE (09:02)
[2017-07-17] MEDS ORDERED: MAGNESIUM 1GM/D5W - 1 GM/100 ML IVPB IVPB ONE (09:30)
--- NOTE | 2017-07-17 09:33 | PN ---
Physical Exam: SUBJECTIVE: Patient seen and examined, reports ongoing cough OBJECTIVE: Patient is a 72 y/o man with a PMHx of COPD, CAD s/p stentx1, endovasuclar repair of AAA, and HTN. Patient was admitted from the emergency department for copd excerbation. Vital Signs Period Temp Pulse Resp BP Sys/Gonzales Pulse Ox Last 24 Hr 97.8 F-100.1 F 65-120 17-20 116-160/68-95 94-99 GENERAL: The patient is awake, alert, and fully oriented, in no acute distress. HEAD: Normal with no signs of trauma. EYES: PERRL, extraocular movements intact, sclera anicteric, conjunctiva clear. No ptosis. ENT: Ears normal, nares patent, oropharynx clear without exudates, moist mucous membranes. NECK: Trachea midline, full range of motion, supple. LUNGS: Breath sounds equal, bilateral inspiratory wheeze to apexes, diminished to bases, RR 24, no crackles, no accessory muscle use. HEART: Regular rate and rhythm, S1, S2 without murmur, rub or gallop. ABDOMEN: Soft, nontender, nondistended, normoactive bowel sounds, no guarding, no rebound, no hepatosplenomegaly, no masses. EXTREMITIES: 2+ pulses, warm, well-perfused, no edema. NEUROLOGICAL: Cranial nerves II through XII grossly intact. Normal speech, gait not observed. PSYCH: Normal mood, normal affect. SKIN: Warm, dry, normal turgor, no rashes or lesions noted Laboratory Results - last 24 hr 07/16/17 07/16/17 07/16/17 16:02 16:02 16:02 WBC 6.0 D RBC 3.86 L Hgb 12.1 Hct 35.4 MCV 91.8 MCH 31.4 MCHC 34.2 RDW 13.0 Plt Count 349 MPV 6.8 L Neutrophils % 76.5 Lymphocytes % 10.6 D Monocytes % 9.9 Eosinophils % 2.8 D Basophils % 0.2 Sodium 131 L Potassium 4.4 Chloride 100 Carbon Dioxide 24 D Anion Gap 7 L BUN 16 D Creatinine 1.5 H Creat Clearance w eGFR 45.87 Random Glucose 104 Lactic Acid Calcium 8.8 Phosphorus Magnesium Total Bilirubin 0.1 L D AST 21 D ALT 18 D Alkaline Phosphatase 79 D Creatine Kinase 184 Creatine Kinase Index 1.4 CK-MB (CK-2) 2.6 Troponin I < 0.03 Total Protein 6.1 L Albumin 3.5 Triglycerides Cholesterol Total LDL Cholesterol HDL Cholesterol 07/16/17 07/17/17 07/17/17 17:51 01:30 07:15 WBC 5.5 RBC 3.62 L Hgb 11.2 L Hct 33.2 L MCV 91.6 MCH 30.8 MCHC 33.7 RDW 13.4 Plt Count 370 MPV 6.8 L Neutrophils % 80.8 Lymphocytes % 9.2 Monocytes % 9.8 Eosinophils % 0.2 D Basophils % 0.0 Sodium Potassium Chloride Carbon Dioxide Anion Gap BUN Creatinine Creat Clearance w eGFR Random Glucose Lactic Acid Cancelled Calcium Phosphorus Magnesium Total Bilirubin AST ALT Alkaline Phosphatase Creatine Kinase 140 Creatine Kinase Index CK-MB (CK-2) Troponin I < 0.02 Total Protein Albumin Triglycerides Cholesterol Total LDL Cholesterol HDL Cholesterol 07/17/17 07/17/17 07:15 07:15 WBC RBC Hgb Hct MCV MCH MCHC RDW Plt Count MPV Neutrophils % Lymphocytes % Monocytes % Eosinophils % Basophils % Sodium 134 L Potassium 4.5 Chloride 105 Carbon Dioxide 24 Anion Gap 5 L BUN 16 Creatinine 1.1 D Creat Clearance w eGFR Random Glucose 118 H Lactic Acid Calcium 8.8 Phosphorus 3.1 D Magnesium 1.9 Total Bilirubin AST ALT Alkaline Phosphatase Creatine Kinase Creatine Kinase Index CK-MB (CK-2) Troponin I Total Protein Albumin Triglycerides 55 Cholesterol 131 Total LDL Cholesterol 83 HDL Cholesterol 37 Active Medications Generic Name Dose Route Start Last Admin Trade Name Freq PRN Reason Stop Dose Admin Aspirin 81 mg 07/17/17 10:00 Asa - PO DAILY [facility] Atorvastatin Calcium 10 mg 07/17/17 22:00 Lipitor - PO HS [facility] Budesonide/Formoterol Fumarate 2 puff 07/17/17 10:00 Symbicort 160/4.5mcg - IH BID [facility] Bupropion HCl 300 mg 07/17/17 10:00 Wellbutrin Xl - PO DAILY [facility] Clopidogrel Bisulfate 75 mg 07/17/17 10:00 Plavix - PO DAILY [facility] Ezetimibe 10 mg 07/17/17 22:00 Zetia - PO HS [facility] Escitalopram Oxalate 30 mg 07/17/17 10:00 Lexapro - PO DAILY [facility] Fenofibric Acid 45 mg 07/17/17 10:00 Trilipix - PO DAILY [facility] Guaifenesin 10 ml 07/17/17 01:56 07/17/17 02:42 Robitussin - PO 10 ml Q6H PRN Administration COUGH Magnesium Sulfate/Dextrose 1 gm in 100 mls @ 100 mls/hr 07/17/17 09:30 Magnesium 1gm/D5w - IVPB 07/17/17 10:29 ONCE ONE Risperidone 2 mg 07/17/17 01:15 07/17/17 02:42 Risperdal - PO 2 mg BID [facility] Administration Tiotropium [place] 1 puff 07/17/17 10:00 Spiriva - IH DAILY [facility] Zolpidem Tartrate 5 mg 07/17/17 22:00 Ambien - PO HS PRN INSOMNIA ASSESSMENT/PLAN: 1) pulm copd excerbation - start solumedrol 40mg q6h with taper as appropriate - continue spiriva and symbicort - incentive spirometer - keep spo2 above 92% with supplemental O2 as needed -appreciate pulmonary input 2) cardiology chest pain r/o acs - likely secondary to copd excerbation, troponin x 3 wnl - continuous cardiac monitoring - pending echo coronary artery disease - continue plavix, lipitor, fenobirate, and zetia hypertension - b/p remains at goal strict monitoring 3) psych anxiety/depression - continue home medication f/e/n - low sodium/cholesterol diet - replete lytes prn ppx - oob - scd - pt dispo: pt requires inpatient admission Visit type - Emergency Visit Emergency Visit: Yes ED Registration Date: 07/16/17 Care time: The patient presented to the Emergency Department on the above date and was hospitalized for further evaluation of their emergent condition. - New Patient This patient is new to me today: No - Critical Care Critical Care patient: No - Discharge Referral Referred to [facility] No
[2017-07-17] MEDS ORDERED: PT OWN MED DRAWER 7, Y5N ONE (09:52)
[2017-07-17] MEDS: ESCITALOPRAM OXALATE 10 MG TABLET (FP) PO SCH (09:58)
[2017-07-17] MEDS: CLOPIDOGREL BISULFATE 75 MG TABLET (FP) PO SCH (09:58)
[2017-07-17] MEDS: methylPREDNISolone NA SUCC 40 MG/1 ML VIAL IVPUSH SCH ×3 (09:58→22:04)
[2017-07-17] MEDS: ASPIRIN 81 MG CHEWABLE TABLETS PO SCH (09:58)
[2017-07-17] MEDS: FENOFIBRIC ACID 45 MG CAP PO SCH (09:59)
[2017-07-17] MEDS ORDERED: TIOTROPIUM BROMIDE 18 MCG/INH (DEVICE W/ 5 CAPSULES) IH SCH (10:00)
[2017-07-17] MEDS ORDERED: LISINOPRIL 10 MG TABLET (FP) PO SCH (10:00)
[2017-07-17] MEDS: BUDESONIDE/FORMETEROL FUMARATE 160/4.5 mcg INHALER IH SCH ×2 (10:25→22:04)
[2017-07-17] MEDS: ALBUTEROL SO4 2.5/IPRATROPIUM 0.5 INH SOL 3 ML VIAL.NEB. NEB SCH ×3 (11:10→22:04)
[2017-07-17] MEDS: BENZOCAINE/MENTH/CETYLPYRD CL 1 EACH LOZENGE MM PRN ×2 (11:13→18:53)
--- NOTE | 2017-07-17 14:47 | EKG ---
Test Reason : Blood Pressure : / mmHG Vent. Rate : 065 BPM Atrial Rate : 065 BPM P-R Int : 198 ms QRS Dur : 092 ms QT Int : 380 ms P-R-T Axes : 041 -24 032 degrees QTc Int : 395 ms NORMAL SINUS RHYTHM WITH SINUS ARRHYTHMIA INFERIOR INFARCT (CITED ON OR BEFORE 21-AUG-2016) ABNORMAL ECG WHEN COMPARED WITH ECG OF 22-JUN-2017 12:44, NONSPECIFIC T WAVE ABNORMALITY HAS REPLACED INVERTED T WAVES IN INFERIOR LEADS Confirmed by SONAL ORTEGA MD ([id number] on 07/17/2017 2:47:00 PM Referred By: RUDDY Confirmed By:SONAL ORTEGA MD
--- NOTE | 2017-07-17 15:04 | CON.PULM ---
Consult Consult Specialty:: PULMONARY Referred by:: SRINIVAS Reason for Consultation:: COPD - History of Present Illness Chief Complaint: SOB/COUGH/FOR 5 DAYS History of Present Illness: This is a 72 y/o man with a PMHx of COPD, CAD s/p stentx1, HTN. Presents to the ED with chest pain, SOB x one week . Patient reports the pain as sharp and intermittent. He reports having a productive cough and wheezing. Patient denies fever, chills, dizziness, AP, N/V/D, constipation, dysuria. Multiple admissions to [facility] for similar complaints. - History Source History Provided By: Patient, Medical Record Limitations to Obtaining History: Clinical Condition - Past Medical History [employer]: No: Alzheimer's Cardio/Vascular: Yes: CAD, HTN, Hyperlipdemia, [place] Pulmonary: Yes: COPD Gastrointestinal: Yes: Other (umbilical hernia). No: Ascites Hepatobiliary: No: Cirrhosis Heme/Onc: Yes: Anemia Psych: Yes: Anxiety, Depression - Past Surgical History Past Surgical History: Yes: None, Stent - Alcohol/Substance Use Hx Alcohol Use: Yes History of Substance Use: reports: None - Smoking History Smoking history: Former smoker Have you smoked in the past 12 months: No Aproximately how many cigarettes per day: 0 If you are a former smoker, when did you quit?: 2005 - Social History ADL: Independent Place of : [facility] History of Recent Travel: No Home Medications - Allergies Allergies/Adverse Reactions: Allergies Allergy/AdvReac Type Severity Reaction Status Date / Time No Known Allergies Allergy Verified 07/16/17 15:35 - Home Medications Home Medications: Ambulatory Orders Aspirin [ASA -] 81 mg PO DAILY 04/29/14 Escitalopram Oxalate [Lexapro -] 30 mg PO DAILY 04/29/14 Alprazolam [Xanax] 1 mg PO BID 11/19/14 Bupropion HCl [Wellbutrin Xl -] 300 mg PO DAILY 06/14/15 Risperidone 2 mg PO BID 11/24/15 Zolpidem Tartrate [Ambien] 10 mg PO HS 11/25/15 Lisinopril 10 mg PO DAILY 10/28/16 Fenofibrate Nanocrystallized [Tricor] 48 mg PO DAILY 10/29/16 Atorvastatin Ca [Lipitor] 10 mg PO HS tablet 10/30/16 Ezetimibe [Zetia -] 10 mg PO HS tablet 10/30/16 Clopidogrel Bisulfate [Plavix -] 75 mg PO DAILY 04/23/17 Albuterol Sulfate Inhaler - [Ventolin Hfa Inhaler -] 2 inh PO Q4H PRN #1 inh Budesonide/Formeterol Fumarate [SYMBICORT 160/4.5mcg -] 2 puff IH BID #1 inhaler 04/27/17 Guaifenesin [Mucinex -] 600 mg PO BID #30 tablet.er 04/27/17 Tiotropium [place] [Spiriva] 1 puff IH DAILY #1 inh 04/27/17 Family Disease History - Family Disease History Family History: Unable to Obtain Review of Systems - Review of Systems Constitutional: reports: Weakness. denies: Fever Eyes: reports: No Symptoms HENT: denies: Ear Discharge Neck: denies: Decreased ROM Cardiovascular: reports: Chest Pain, Shortness of Breath. denies: Palpitations Respiratory: reports: Cough, Exercise Intolerance, SOB, SOB on Exertion, Wheezing. denies: Hemoptysis Gastrointestinal: denies: Abdominal Pain Genitourinary: denies: Burning Breasts: reports: No Symptoms Reported Physical Exam Vital Sings: Vital Signs Temperature 98.5 F 07/17/17 14:24 Pulse Rate 77 07/17/17 14:24 Respiratory Rate 18 07/17/17 14:24 Blood Pressure 123/49 07/17/17 14:24 O2 Sat by Pulse Oximetry (%) 94 L 07/17/17 14:24 Constitutional: Yes: Anxious Eyes: Yes: EOM Intact HENT: Yes: Normocephalic Neck: Yes: Trachea Midline Cardiovascular: Yes: S1, S2 Respiratory: Yes: Rhonchi, Wheezes Gastrointestinal: Yes: Normal Bowel Sounds, Soft Edema: No Labs: CBC, BMP 07/17/17 07:15 07/17/17 07:15 rest reviewed Imaging - Results Chest X-ray: Report Reviewed, Image Reviewed Problem List - Problems (1) Acute bronchitis Code(s): J20.9 - ACUTE BRONCHITIS, UNSPECIFIED (2) Chest pain Code(s): R07.9 - CHEST PAIN, UNSPECIFIED Qualifiers: Chest pain type: unspecified Qualified Code(s): R07.9 - Chest pain, unspecified (3) ASHD (arteriosclerotic heart disease) Code(s): I25.10 - ATHSCL HEART DISEASE OF [place] CORONARY ARTERY W/O ANG PCTRS (4) Alcohol use Code(s): Z78.9 - OTHER SPECIFIED HEALTH STATUS (5) Anxiety Code(s): F41.9 - ANXIETY DISORDER, UNSPECIFIED (6) COPD exacerbation Code(s): J44.1 - CHRONIC OBSTRUCTIVE PULMONARY DISEASE W (ACUTE) EXACERBATION (7) DVT prophylaxis Code(s): POL5472 - Assessment/Plan 02 supplementation bronchodilators iv steroids antibiotics panculture urine for antigens nasal swab for influenza if available sputum gram stain/culture will follow thank you Jeromy PORRAS MD
[2017-07-17] MEDS: ZOLPIDEM TARTRATE 5 MG TABLET PO PRN (22:03)
[2017-07-17] MEDS: ATORVASTATIN CA 10 MG TABLET (FP) PO SCH (22:03)
[2017-07-17] MEDS: EZETIMIBE 10 MG TABLET (FP) PO SCH (22:03)
[2017-07-18] MEDS: methylPREDNISolone NA SUCC 40 MG/1 ML VIAL IVPUSH SCH ×4 (03:00→18:31)
[2017-07-18] MEDS: ALBUTEROL SO4 2.5/IPRATROPIUM 0.5 INH SOL 3 ML VIAL.NEB. NEB SCH ×4 (08:30→20:20)
[2017-07-18] MEDS ORDERED: PT OWN MED DRAWER 7, Y5N ONE (10:00)
[2017-07-18] MEDS: ASPIRIN 81 MG CHEWABLE TABLETS PO SCH (10:02)
[2017-07-18] MEDS: ESCITALOPRAM OXALATE 10 MG TABLET (FP) PO SCH (10:03)
[2017-07-18] MEDS: risperiDONE 1 MG TABLET (FP) PO SCH ×2 (10:03→21:20)
[2017-07-18] MEDS: CLOPIDOGREL BISULFATE 75 MG TABLET (FP) PO SCH (10:04)
[2017-07-18] MEDS: BUDESONIDE/FORMETEROL FUMARATE 160/4.5 mcg INHALER IH SCH ×2 (10:04→21:21)
[2017-07-18] MEDS: FENOFIBRIC ACID 45 MG CAP PO SCH (10:04)
--- NOTE | 2017-07-18 12:08 | PN ---
Physical Exam: SUBJECTIVE: Patient seen and examined, reports feeling slightly improved, denies any chest pain or shortness of breath. OBJECTIVE: Patient is a 72 y/o man with a PMHx of COPD, CAD s/p stentx1, endovasuclar repair of AAA, and HTN. Patient was admitted from the emergency department for copd exacerbation. Vital Signs Period Temp Pulse Resp BP Sys/Gonzales Pulse Ox Last 24 Hr 97.4 F-98.5 F 63-86 18-19 107-136/49-68 94-99 GENERAL: The patient is awake, alert, and fully oriented, in no acute distress. HEAD: Normal with no signs of trauma. EYES: PERRL, extraocular movements intact, sclera anicteric, conjunctiva clear. No ptosis. ENT: Ears normal, nares patent, oropharynx clear without exudates, moist mucous membranes. NECK: Trachea midline, full range of motion, supple. LUNGS: Breath sounds equal, courseh rhonchi to apexes, diminished to base, no wheezes, no crackles, no accessory muscle use. HEART: Regular rate and rhythm, S1, S2 without murmur, rub or gallop. ABDOMEN: Soft, nontender, nondistended, normoactive bowel sounds, no guarding, no rebound, no hepatosplenomegaly, no masses. EXTREMITIES: 2+ pulses, warm, well-perfused, no edema. NEUROLOGICAL: tardive dysknesia, Cranial nerves II through XII grossly intact. Normal speech, gait not observed. PSYCH: Normal mood, normal affect. SKIN: Warm, dry, normal turgor, no rashes or lesions noted Active Medications Generic Name Dose Route Start Last Admin Trade Name Freq PRN Reason Stop Dose Admin Albuterol/Ipratropium 1 amp 07/17/17 10:15 07/18/17 08:30 Duoneb - NEB 1 amp RQID [facility] Administration Aspirin 81 mg 07/17/17 10:00 07/18/17 10:02 Asa - PO 81 mg DAILY [facility] Administration Atorvastatin Calcium 10 mg 07/17/17 22:00 07/17/17 22:03 Lipitor - PO 10 mg HS [facility] Administration Benzocaine/Menthol 1 each 07/17/17 10:05 07/17/17 18:53 Cepacol Lozenge - MM 1 each Q2H PRN Administration SORE THROAT Budesonide/Formoterol Fumarate 2 puff 07/17/17 10:00 07/18/17 10:04 Symbicort 160/4.5mcg - IH 2 puff BID [facility] Administration Bupropion HCl 300 mg 07/17/17 10:00 07/18/17 10:02 Wellbutrin Xl - PO 300 mg DAILY [facility] Administration Clopidogrel Bisulfate 75 mg 07/17/17 10:00 07/18/17 10:04 Plavix - PO 75 mg DAILY [facility] Administration Ezetimibe 10 mg 07/17/17 22:00 07/17/17 22:03 Zetia - PO 10 mg HS [facility] Administration Escitalopram Oxalate 30 mg 07/17/17 10:00 07/18/17 10:03 Lexapro - PO 30 mg DAILY [facility] Administration Fenofibric Acid 45 mg 07/17/17 10:00 07/18/17 10:04 Trilipix - PO 45 mg DAILY [facility] Administration Guaifenesin 10 ml 07/17/17 01:56 07/17/17 14:19 Robitussin - PO 10 ml Q6H PRN Administration COUGH Methylprednisolone Sodium Succinate 40 mg 07/17/17 09:45 07/18/17 10:02 Solu-Medrol - IVPUSH 40 mg Q6H-IV [facility] Administration Risperidone 2 mg 07/17/17 01:15 07/18/17 10:03 Risperdal - PO 2 mg BID [facility] Administration Zolpidem Tartrate 5 mg 07/17/17 22:00 07/17/17 22:03 Ambien - PO 5 mg HS PRN Administration INSOMNIA Microbiology 07/16/17 17:51 Blood - Peripheral Venous Blood Culture - Preliminary NO GROWTH OBTAINED AFTER 24 HOURS, INCUBATION TO CONTINUE FOR 4 DAYS. 07/16/17 17:51 Blood - Peripheral Venous Blood Culture - Preliminary NO GROWTH OBTAINED AFTER 24 HOURS, INCUBATION TO CONTINUE FOR 4 DAYS. ASSESSMENT/PLAN: 1) pulm copd excerbation - wheezing resolved, decreased solumedrol 40mg q8h, with taper as appropriate - continue spiriva and symbicort - incentive spirometer - keep spo2 above 92% with supplemental O2 as needed - pulmonary consulted and following 2) cardiology chest pain r/o acs - likely secondary to copd excerbation, troponin x 3 wnl - continuous cardiac monitoring - echo grade I diastolic dysfunction, ef 65-70% coronary artery disease - continue plavix, lipitor, fenobirate, and zetia hypertension - b/p remains at goal strict monitoring 3) psych anxiety/depression - continue home medication f/e/n - low sodium/cholesterol diet - replete lytes prn ppx - oob - scd - pt dispo: pt requires inpatient admission Visit type - Emergency Visit Emergency Visit: Yes ED Registration Date: 07/16/17 Care time: The patient presented to the Emergency Department on the above date and was hospitalized for further evaluation of their emergent condition. - New Patient This patient is new to me today: No - Critical Care Critical Care patient: No - Discharge Referral Referred to [facility] Med [facility].C.: No
[2017-07-18] MEDS: ATORVASTATIN CA 10 MG TABLET (FP) PO SCH (21:20)
[2017-07-18] MEDS: EZETIMIBE 10 MG TABLET (FP) PO SCH (21:20)
[2017-07-19] MEDS: ZOLPIDEM TARTRATE 5 MG TABLET PO PRN ×2 (00:04→21:57)
[2017-07-19] MEDS: methylPREDNISolone NA SUCC 40 MG/1 ML VIAL IVPUSH SCH ×3 (01:18→18:10)
[2017-07-19] MEDS: ALBUTEROL SO4 2.5/IPRATROPIUM 0.5 INH SOL 3 ML VIAL.NEB. NEB SCH ×4 (08:45→22:02)
[2017-07-19] MEDS ORDERED: PT OWN MED DRAWER 7, Y5N ONE (10:15)
[2017-07-19] MEDS: ASPIRIN 81 MG CHEWABLE TABLETS PO SCH (10:18)
[2017-07-19] MEDS: risperiDONE 1 MG TABLET (FP) PO SCH ×2 (10:20→21:58)
[2017-07-19] MEDS: CLOPIDOGREL BISULFATE 75 MG TABLET (FP) PO SCH (10:20)
[2017-07-19] MEDS: ESCITALOPRAM OXALATE 10 MG TABLET (FP) PO SCH (10:20)
[2017-07-19] MEDS: FENOFIBRIC ACID 45 MG CAP PO SCH (10:21)
[2017-07-19] MEDS: BUDESONIDE/FORMETEROL FUMARATE 160/4.5 mcg INHALER IH SCH ×2 (10:21→21:58)
--- NOTE | 2017-07-19 12:53 | PN ---
Physical Exam: SUBJECTIVE: Patient seen and examined, report ongoing cough OBJECTIVE: Patient is a 72 y/o man with a PMHx of COPD, CAD s/p stentx1, endovasuclar repair of AAA, and HTN. Patient was admitted from the emergency department for copd exacerbation. Vital Signs Period Temp Pulse Resp BP Sys/Gonzales Pulse Ox Last 24 Hr 97.4 F-98.1 F 58-109 19-20 122-150/49-75 92-96 GENERAL: The patient is awake, alert, and fully oriented, in no acute distress. HEAD: Normal with no signs of trauma. EYES: PERRL, extraocular movements intact, sclera anicteric, conjunctiva clear. No ptosis. ENT: Ears normal, nares patent, oropharynx clear without exudates, moist mucous membranes. NECK: Trachea midline, full range of motion, supple. LUNGS: Breath sounds equal, course rhonchi to apexes, diminished to base, no wheezes, no crackles, no accessory muscle use. HEART: Regular rate and rhythm, S1, S2 without murmur, rub or gallop. ABDOMEN: Soft, nontender, nondistended, normoactive bowel sounds, no guarding, no rebound, no hepatosplenomegaly, no masses. EXTREMITIES: 2+ pulses, warm, well-perfused, no edema. NEUROLOGICAL: tardive dysknesia, Cranial nerves II through XII grossly intact. Normal speech, gait not observed. PSYCH: Normal mood, normal affect. SKIN: Warm, dry, normal turgor, no rashes or lesions noted Active Medications Generic Name Dose Route Start Last Admin Trade Name Freq PRN Reason Stop Dose Admin Albuterol/Ipratropium 1 amp 07/17/17 10:15 07/19/17 08:45 Duoneb - NEB Not Given RQID [facility] Aspirin 81 mg 07/17/17 10:00 07/19/17 10:18 Asa - PO 81 mg DAILY [facility] Administration Atorvastatin Calcium 10 mg 07/17/17 22:00 07/18/17 21:20 Lipitor - PO 10 mg HS [facility] Administration Benzocaine/Menthol 1 each 07/17/17 10:05 07/17/17 18:53 Cepacol Lozenge - MM 1 each Q2H PRN Administration SORE THROAT Budesonide/Formoterol Fumarate 2 puff 07/17/17 10:00 07/19/17 10:21 Symbicort 160/4.5mcg - IH 2 puff BID [facility] Administration Bupropion HCl 300 mg 07/17/17 10:00 07/19/17 10:21 Wellbutrin Xl - PO 300 mg DAILY [facility] Administration Clopidogrel Bisulfate 75 mg 07/17/17 10:00 07/19/17 10:20 Plavix - PO 75 mg DAILY [facility] Administration Ezetimibe 10 mg 07/17/17 22:00 07/18/17 21:20 Zetia - PO 10 mg HS [facility] Administration Escitalopram Oxalate 30 mg 07/17/17 10:00 07/19/17 10:20 Lexapro - PO 30 mg DAILY [facility] Administration Fenofibric Acid 45 mg 07/17/17 10:00 07/19/17 10:21 Trilipix - PO 45 mg DAILY [facility] Administration Guaifenesin 10 ml 07/17/17 01:56 07/17/17 14:19 Robitussin - PO 10 ml Q6H PRN Administration COUGH Methylprednisolone Sodium Succinate 40 mg 07/18/17 18:00 07/19/17 10:22 Solu-Medrol - IVPUSH 40 mg Q8H-IV [facility] Administration Risperidone 2 mg 07/17/17 01:15 07/19/17 10:20 Risperdal - PO 2 mg BID [facility] Administration Zolpidem Tartrate 5 mg 07/17/17 22:00 07/19/17 00:04 Ambien - PO 5 mg HS PRN Administration INSOMNIA Microbiology 07/16/17 17:51 Blood - Peripheral Venous Blood Culture - Preliminary NO GROWTH OBTAINED AFTER 48 HOURS, INCUBATION TO CONTINUE FOR 3 DAYS. 07/16/17 17:51 Blood - Peripheral Venous Blood Culture - Preliminary NO GROWTH OBTAINED AFTER 48 HOURS, INCUBATION TO CONTINUE FOR 3 DAYS. ASSESSMENT/PLAN: ASSESSMENT/PLAN: 1) pulm copd excerbation - wheezing resolved, continue solumedrol 40mg q8h, with taper as appropriate - continue spiriva and symbicort - incentive spirometer - keep spo2 above 92% with supplemental O2 as needed - pulmonary consulted and following 2) cardiology chest pain r/o acs - likely secondary to copd excerbation, troponin x 3 wnl - continuous cardiac monitoring - echo grade I diastolic dysfunction, ef 65-70% coronary artery disease - continue plavix, lipitor, fenobirate, and zetia hypertension - b/p remains at goal strict monitoring 3) psych anxiety/depression - continue home medication f/e/n - low sodium/cholesterol diet - replete lytes prn ppx - oob - scd - pt dispo: pt requires inpatient admission Visit type - Emergency Visit Emergency Visit: Yes ED Registration Date: 07/16/17 Care time: The patient presented to the Emergency Department on the above date and was hospitalized for further evaluation of their emergent condition. - New Patient This patient is new to me today: No - Critical Care Critical Care patient: No - Discharge Referral Referred to [facility] Med [facility] No
[2017-07-19] MEDS: PANTOPRAZOLE 40 MG TABLET (FP) PO SCH (16:33)
[2017-07-19] MEDS: EZETIMIBE 10 MG TABLET (FP) PO SCH (21:58)
[2017-07-19] MEDS: ATORVASTATIN CA 10 MG TABLET (FP) PO SCH (21:58)
[2017-07-20] MEDS: methylPREDNISolone NA SUCC 40 MG/1 ML VIAL IVPUSH SCH (03:33)
[2017-07-20 08:02] LABS: HEMATOCRIT 35.7 % (35.4-49); HEMOGLOBIN 12.3 GM/dl (11.7-16.9); MCH 31.9 pg (25.7-33.7); MCHC 34.5 g/dl (32.0-35.9); MEAN CELL VOLUME 92.4 fl (80-96); MEAN PLT VOLUME 6.7 fl (7.5-11.1); PLATELET COUNT 418 K/MM3 (134-434); RBC 3.86 M/mm3 (4.00-5.60); RDW 13.3 % (11.9-15.9); WHITE BLOOD COUNT 9.2 K/mm3 (4.0-10.8)
[2017-07-20] MEDS: ALBUTEROL SO4 2.5/IPRATROPIUM 0.5 INH SOL 3 ML VIAL.NEB. NEB SCH ×3 (08:30→20:23)
[2017-07-20 08:38] LABS: ANION GAP 10 (8-16); BLOOD UREA NITROGEN 27 mg/dl (7-18); CALCIUM 9.3 mg/dl (8.4-10.2); CHLORIDE 100 mmol/L (98-107); CO2 25 mmol/L (22-28); CREATININE 1.2 mg/dl (0.6-1.3); GLUCOSE,RANDOM 114 mg/dl (74-106); POTASSIUM 4.7 mmol/L (3.5-5.1); SODIUM 135 mmol/L (136-145)
[2017-07-20] MEDS: ASPIRIN 81 MG CHEWABLE TABLETS PO SCH (10:26)
[2017-07-20] MEDS: CLOPIDOGREL BISULFATE 75 MG TABLET (FP) PO SCH (10:27)
[2017-07-20] MEDS: ESCITALOPRAM OXALATE 10 MG TABLET (FP) PO SCH (10:27)
[2017-07-20] MEDS: PANTOPRAZOLE 40 MG TABLET (FP) PO SCH (10:28)
[2017-07-20] MEDS: risperiDONE 1 MG TABLET (FP) PO SCH ×2 (10:28→21:09)
[2017-07-20] MEDS: FENOFIBRIC ACID 45 MG CAP PO SCH (10:29)
[2017-07-20] MEDS: BUDESONIDE/FORMETEROL FUMARATE 160/4.5 mcg INHALER IH SCH ×2 (10:30→21:10)
[2017-07-20 10:52] LABS: PLATELET ESTIMATE SLT INCREASE
--- NOTE | 2017-07-20 13:06 | PN ---
Physical Exam: SUBJECTIVE: Patient seen and examined, reports ongoing cough, denies any chest pain or shortness of breath. OBJECTIVE: Patient is a 72 y/o man with a PMHx of COPD, CAD s/p stentx1, endovasuclar repair of AAA, and HTN. Patient was admitted from the emergency department for copd exacerbation. Vital Signs Period Temp Pulse Resp BP Sys/Gonzales Pulse Ox Last 24 Hr 97.7 F-98.4 F 59-101 17-19 156-157/74-89 94-96 GENERAL: The patient is awake, alert, and fully oriented, in no acute distress. HEAD: Normal with no signs of trauma. EYES: PERRL, extraocular movements intact, sclera anicteric, conjunctiva clear. No ptosis. ENT: Ears normal, nares patent, oropharynx clear without exudates, moist mucous membranes. NECK: Trachea midline, full range of motion, supple. LUNGS: Breath sounds equal, course rhonchi to apexes, diminished to base, no wheezes, no crackles, no accessory muscle use. HEART: Regular rate and rhythm, S1, S2 without murmur, rub or gallop. ABDOMEN: Soft, nontender, nondistended, normoactive bowel sounds, no guarding, no rebound, no hepatosplenomegaly, no masses. EXTREMITIES: 2+ pulses, warm, well-perfused, no edema. NEUROLOGICAL: tardive dysknesia, Cranial nerves II through XII grossly intact. Normal speech, gait not observed. PSYCH: Normal mood, normal affect. SKIN: Warm, dry, normal turgor, no rashes or lesions noted Laboratory Results - last 24 hr 07/20/17 07/20/17 07:00 07:00 WBC 9.2 D RBC 3.86 L Hgb 12.3 Hct 35.7 MCV 92.4 MCH 31.9 MCHC 34.5 RDW 13.3 Plt Count 418 MPV 6.7 L Neutrophils % No Result Required. Neutrophils % (Manual) 91.0 H* Band Neutrophils % 1.0 Lymphocytes % No Result Required. Lymphocytes % (Manual) 4.0 L D Monocytes % (Manual) 4 Platelet Estimate Slt increase Sodium 135 L Potassium 4.7 Chloride 100 Carbon Dioxide 25 Anion Gap 10 BUN 27 H D Creatinine 1.2 Random Glucose 114 H Calcium 9.3 Active Medications Generic Name Dose Route Start Last Admin Trade Name Freq PRN Reason Stop Dose Admin Albuterol/Ipratropium 1 amp 07/17/17 10:15 07/20/17 12:45 Duoneb - NEB 1 amp RQID FIDEL Administration Aspirin 81 mg 07/17/17 10:00 07/19/17 10:18 Asa - PO 81 mg DAILY FIDEL Administration Atorvastatin Calcium 10 mg 07/17/17 22:00 07/19/17 21:58 Lipitor - PO 10 mg HS FIDEL Administration Benzocaine/Menthol 1 each 07/17/17 10:05 07/17/17 18:53 Cepacol Lozenge - MM 1 each Q2H PRN Administration SORE THROAT Budesonide/Formoterol Fumarate 2 puff 07/17/17 10:00 07/19/17 21:58 Symbicort 160/4.5mcg - IH 2 puff BID FIDEL Administration Bupropion HCl 300 mg 07/17/17 10:00 07/19/17 10:21 Wellbutrin Xl - PO 300 mg DAILY FIDEL Administration Clopidogrel Bisulfate 75 mg 07/17/17 10:00 07/19/17 10:20 Plavix - PO 75 mg DAILY FIDEL Administration Ezetimibe 10 mg 07/17/17 22:00 07/19/17 21:58 Zetia - PO 10 mg HS FIDEL Administration Escitalopram Oxalate 30 mg 07/17/17 10:00 07/19/17 10:20 Lexapro - PO 30 mg DAILY FIDEL Administration Fenofibric Acid 45 mg 07/17/17 10:00 07/19/17 10:21 Trilipix - PO 45 mg DAILY FIDEL Administration Guaifenesin 10 ml 07/17/17 01:56 07/17/17 14:19 Robitussin - PO 10 ml Q6H PRN Administration COUGH Methylprednisolone Sodium Succinate 40 mg 07/18/17 18:00 07/20/17 03:33 Solu-Medrol - IVPUSH 40 mg Q8H-IV FIDEL Administration Pantoprazole Sodium 40 mg 07/19/17 13:00 07/19/17 16:33 Protonix - PO 40 mg DAILY FIDEL Administration Risperidone 2 mg 07/17/17 01:15 07/19/17 21:58 Risperdal - PO 2 mg BID FIDEL Administration Zolpidem Tartrate 5 mg 07/17/17 22:00 07/19/17 21:57 Ambien - PO 5 mg HS PRN Administration INSOMNIA Microbiology 07/16/17 17:51 Blood - Peripheral Venous Blood Culture - Preliminary NO GROWTH OBTAINED AFTER 72 HOURS, INCUBATION TO CONTINUE FOR 2 DAYS. 07/16/17 17:51 Blood - Peripheral Venous Blood Culture - Preliminary NO GROWTH OBTAINED AFTER 72 HOURS, INCUBATION TO CONTINUE FOR 2 DAYS. ASSESSMENT/PLAN: 1) pulm copd excerbation - wheezing resolved, taper solumedrol 40mg bid, with taper as appropriate - continue spiriva and symbicort - incentive spirometer - peak flow - keep spo2 above 92% with supplemental O2 as needed - pulmonary consulted and following 2) cardiology chest pain r/o acs - likely secondary to copd excerbation, troponin x 3 wnl - continuous cardiac monitoring - echo grade I diastolic dysfunction, ef 65-70% coronary artery disease - continue plavix, lipitor, fenobirate, and zetia hypertension - b/p remains at goal strict monitoring 3) psych anxiety/depression - continue home medication f/e/n - low sodium/cholesterol diet - replete lytes prn ppx - oob - scd - pt dispo: pt requires inpatient admission Visit type - Emergency Visit Emergency Visit: Yes ED Registration Date: 07/16/17 Care time: The patient presented to the Emergency Department on the above date and was hospitalized for further evaluation of their emergent condition. - New Patient This patient is new to me today: No - Critical Care Critical Care patient: No - Discharge Referral Referred to [facility] Med [facility] No
[2017-07-20] MEDS ORDERED: guaiFENesin/CODEINE 10 ML UNIT-DOSE CUPS PO PRN (13:29)
--- NOTE | 2017-07-20 16:06 | PN ---
Progress Note, Physician History of Present Illness: PULMONARY ALERT,LESS CONGESTED ,+ COUGH - Current Medication List Current Medications: Active Medications Albuterol/Ipratropium (Duoneb -) 1 amp NEB RQID [facility] Last Admin: 07/20/17 12:45 Dose: 1 amp Aspirin (Asa -) 81 mg PO DAILY [facility] Last Admin: 07/20/17 10:26 Dose: 81 mg Atorvastatin Calcium (Lipitor -) 10 mg PO HS [facility] Last Admin: 07/19/17 21:58 Dose: 10 mg Benzocaine/Menthol (Cepacol Lozenge -) 1 each MM Q2H PRN PRN Reason: SORE THROAT Last Admin: 07/17/17 18:53 Dose: 1 each Budesonide/Formoterol Fumarate (Symbicort 160/4.5mcg -) 2 puff IH BID [facility] Last Admin: 07/20/17 10:30 Dose: 2 puff Bupropion HCl (Wellbutrin Xl -) 300 mg PO DAILY [facility] Last Admin: 07/20/17 10:29 Dose: 300 mg Clopidogrel Bisulfate (Plavix -) 75 mg PO DAILY [facility] Last Admin: 07/20/17 10:27 Dose: 75 mg Ezetimibe (Zetia -) 10 mg PO [facility] Last Admin: 07/19/17 21:58 Dose: 10 mg Escitalopram Oxalate (Lexapro -) 30 mg PO DAILY [facility] Last Admin: 07/20/17 10:27 Dose: 30 mg Fenofibric Acid (Trilipix -) 45 mg PO DAILY [facility] Last Admin: 07/20/17 10:29 Dose: 45 mg Guaifenesin (Robitussin -) 10 ml PO Q6H PRN PRN Reason: COUGH Last Admin: 07/17/17 14:19 Dose: 10 ml Guaifenesin/Codeine Phosphate (Robitussin Ac -) 10 ml PO Q6H PRN PRN Reason: COUGH Last Admin: 07/20/17 14:28 Dose: 10 ml Methylprednisolone Sodium Succinate (Solu-Medrol -) 40 mg IVPUSH BID [facility] Pantoprazole Sodium (Protonix -) 40 mg PO DAILY [facility] Last Admin: 07/20/17 10:28 Dose: 40 mg Risperidone (Risperdal -) 2 mg PO BID [facility] Last Admin: 07/20/17 10:28 Dose: 2 mg Zolpidem Tartrate (Ambien -) 5 mg PO HS PRN PRN Reason: INSOMNIA Last Admin: 07/19/17 21:57 Dose: 5 mg - Objective Vital Signs: Vital Signs Temperature 97.6 F 07/20/17 14:53 Pulse Rate 112 H 07/20/17 14:53 Respiratory Rate 20 07/20/17 14:53 Blood Pressure 149/99 07/20/17 14:53 O2 Sat by Pulse Oximetry (%) 92 L 07/20/17 14:53 Constitutional: Yes: Well Nourished, Calm Eyes: Yes: WNL HENT: Yes: WNL Neck: Yes: WNL Cardiovascular: Yes: Regular Rate and Rhythm, S1, S2 Respiratory: Yes: Wheezes (BILATERAL WHEEZES) Gastrointestinal: Yes: Normal Bowel Sounds, Soft Extremities: Yes: WNL Edema: No Labs: CBC, BMP 07/20/17 07:00 07/20/17 07:00 Assessment/Plan Problem List - Problems (1) Acute bronchitis Code(s): J20.9 - ACUTE BRONCHITIS, UNSPECIFIED (2) Chest pain Code(s): R07.9 - CHEST PAIN, UNSPECIFIED Qualifiers: Chest pain type: unspecified Qualified Code(s): R07.9 - Chest pain, unspecified (3) ASHD (arteriosclerotic heart disease) Code(s): I25.10 - ATHSCL HEART DISEASE OF [place] CORONARY ARTERY W/O ANG PCTRS (4) Alcohol use Code(s): Z78.9 - OTHER SPECIFIED HEALTH STATUS (5) Anxiety Code(s): F41.9 - ANXIETY DISORDER, UNSPECIFIED (6) COPD exacerbation Code(s): J44.1 - CHRONIC OBSTRUCTIVE PULMONARY DISEASE W (ACUTE) EXACERBATION (7) DVT prophylaxis Code(s): [id number] - Assessment/Plan 02 supplementation inhaled bronchodilators iv steroids antibiotics DR PHILLIP
[2017-07-20] MEDS: ATORVASTATIN CA 10 MG TABLET (FP) PO SCH (21:09)
[2017-07-20] MEDS: EZETIMIBE 10 MG TABLET (FP) PO SCH (21:10)
[2017-07-20] MEDS ORDERED: methylPREDNISolone NA SUCC 40 MG/1 ML VIAL IVPUSH SCH (22:00)
[2017-07-21 05:57] VITALS: BP 143/66; TEMP 98.1
[2017-07-21] MEDS: ALBUTEROL SO4 2.5/IPRATROPIUM 0.5 INH SOL 3 ML VIAL.NEB. NEB SCH (08:50)
[2017-07-21 08:54] VITALS: PULSE 66
--- NOTE | 2017-07-21 09:43 | PN ---
Progress Note (short form) - Note Progress Note: PULMONARY VSS/AFEBRILE ANICTERIC CHEST DISTANT BUT CLEAR S1S2 BS+ NO EDEMA LABS/MEDS/NOTES/IMAGES/ECHO REVIEWED RESOLVED ACUTE BRONCHITIS NO EVIDENCE TO SUPPORT PNEUMONIA ANXIETY/DEPRESSION WILL CHANGE TO ORAL STEROIDS TAPER OUTPATIENT CONTINUE INHALERS Jeromy PORRAS MD Problem List - Problems (1) Acute bronchitis Code(s): J20.9 - ACUTE BRONCHITIS, UNSPECIFIED (2) Chest pain Code(s): R07.9 - CHEST PAIN, UNSPECIFIED Qualifiers: Chest pain type: unspecified Qualified Code(s): R07.9 - Chest pain, unspecified (3) ASHD (arteriosclerotic heart disease) Code(s): I25.10 - ATHSCL HEART DISEASE OF [place] CORONARY ARTERY W/O ANG PCTRS (4) Alcohol use Code(s): Z78.9 - OTHER SPECIFIED HEALTH STATUS (5) Anxiety Code(s): F41.9 - ANXIETY DISORDER, UNSPECIFIED (6) COPD exacerbation Code(s): J44.1 - CHRONIC OBSTRUCTIVE PULMONARY DISEASE W (ACUTE) EXACERBATION (7) DVT prophylaxis Code(s): [id number] -
[2017-07-21] MEDS: ASPIRIN 81 MG CHEWABLE TABLETS PO SCH (09:54)
[2017-07-21] MEDS: PANTOPRAZOLE 40 MG TABLET (FP) PO SCH (09:54)
[2017-07-21] MEDS: CLOPIDOGREL BISULFATE 75 MG TABLET (FP) PO SCH (09:55)
[2017-07-21] MEDS: FENOFIBRIC ACID 45 MG CAP PO SCH (09:55)
[2017-07-21] MEDS: risperiDONE 1 MG TABLET (FP) PO SCH (09:55)
[2017-07-21] MEDS: BUDESONIDE/FORMETEROL FUMARATE 160/4.5 mcg INHALER IH SCH (09:55)
[2017-07-21] MEDS: methylPREDNISolone NA SUCC 40 MG/1 ML VIAL IVPUSH SCH (09:56)
[2017-07-21] MEDS: ESCITALOPRAM OXALATE 10 MG TABLET (FP) PO SCH (09:56)
[2017-07-21] MEDS ORDERED: predniSONE 20 MG TABLET (UD) PO SCH (10:00)
--- NOTE | 2017-07-21 11:04 | DS ---
Physical Exam: SUBJECTIVE: Patient seen and examined, ambulatory at bedside, less cough, denies any chest pain or shortness of breath, less cough OBJECTIVE:This is a 72 y/o man with a PMHx of COPD, CAD s/p stentx1, HTN. Who presents to the ED with chest pain, SOB x 2 days. Patient reports the pain as sharp and intermittent. He reports having a productive cough and wheezing. Patient denies fever, chills, dizziness, AP, N/V/D, constipation, dysuria. Pulm: Dr. Hines Vital Signs Period Temp Pulse Resp BP Sys/Gonzales Pulse Ox Last 24 Hr 97.6 F-98.1 F 57-112 20-20 143-157/66-99 90-93 PHYSICAL EXAM GENERAL: The patient is awake, alert, and fully oriented, in no acute distress. HEAD: Normal with no signs of trauma. EYES: PERRL, extraocular movements intact, sclera anicteric, conjunctiva clear. ENT: Ears normal, nares patent, oropharynx clear without exudates, moist mucous membranes. NECK: Trachea midline, full range of motion, supple. LUNGS: Breath sounds equal, clear to auscultation bilaterally, no wheezes, no crackles, no accessory muscle use. HEART: Regular rate and rhythm, S1, S2 without murmur, rub or gallop. ABDOMEN: Soft, nontender, nondistended, normoactive bowel sounds, no guarding, no rebound, no hepatosplenomegaly, no masses. EXTREMITIES: 2+ pulses, warm, well-perfused, no edema. NEUROLOGICAL: Cranial nerves II through XII grossly intact. Normal speech, gait not observed. PSYCH: Normal mood, normal affect. SKIN: Warm, dry, normal turgor, no rashes or lesions noted. LABS CBC WBC 9.2 K/mm3 (4.0-10.8) D 07/20/17 07:00 RBC 3.86 M/mm3 (4.00-5.60) L 07/20/17 07:00 Hgb 12.3 GM/dl (11.7-16.9) 07/20/17 07:00 Hct 35.7 % (35.4-49) 07/20/17 07:00 MCV 92.4 fl (80-96) 07/20/17 07:00 MCH 31.9 pg (25.7-33.7) 07/20/17 07:00 MCHC 34.5 g/dl (32.0-35.9) 07/20/17 07:00 RDW 13.3 % (11.9-15.9) 07/20/17 07:00 Plt Count 418 K/MM3 (134-434) 07/20/17 07:00 MPV 6.7 fl (7.5-11.1) L 07/20/17 07:00 Neutrophils % No Result Required. 07/20/17 07:00 Neutrophils % (Manual) 91.0 % (42.8-82.8) H* 07/20/17 07:00 Band Neutrophils % 1.0 % (0-10) 07/20/17 07:00 Lymphocytes % No Result Required. 07/20/17 07:00 Lymphocytes % (Manual) 4.0 % (8-40) L D 07/20/17 07:00 Monocytes % 9.8 % (3.8-10.2) 07/17/17 07:15 Monocytes % (Manual) 4 % (3.8-10.2) 07/20/17 07:00 Eosinophils % 0.2 % (0-4.5) D 07/17/17 07:15 Basophils % 0.0 % (0-2.0) 07/17/17 07:15 Platelet Estimate Slt increase 07/20/17 07:00 CMP Sodium 135 mmol/L (136-145) L 07/20/17 07:00 Potassium 4.7 mmol/L (3.5-5.1) 07/20/17 07:00 Chloride 100 mmol/L (98-107) 07/20/17 07:00 Carbon Dioxide 25 mmol/L (22-28) 07/20/17 07:00 Anion Gap 10 (8-16) 07/20/17 07:00 BUN 27 mg/dl (7-18) H D 07/20/17 07:00 Creatinine 1.2 mg/dl (0.6-1.3) 07/20/17 07:00 Creat Clearance w eGFR 45.87 (>60) 07/16/17 16:02 Random Glucose 114 mg/dl (74-106) H 07/20/17 07:00 Lactic Acid Cancelled 07/16/17 17:51 Calcium 9.3 mg/dl (8.4-10.2) 07/20/17 07:00 Phosphorus 3.1 mg/dl (2.5-4.6) D 07/17/17 07:15 Magnesium 1.9 mg/dL (1.8-2.4) 07/17/17 07:15 Total Bilirubin 0.1 mg/dl (0.2-1.0) L D 07/16/17 16:02 AST 21 U/L (10-42) D 07/16/17 16:02 ALT 18 U/L (10-40) D 07/16/17 16:02 Alkaline Phosphatase 79 U/L (32-92) D 07/16/17 16:02 Creatine Kinase 140 IU/L (39-308) 07/17/17 01:30 Creatine Kinase Index 1.4 % (0.0-5.0) 07/16/17 16:02 CK-MB (CK-2) 2.6 ng/mL (0.3-4.0) 07/16/17 16:02 Troponin I < 0.03 ng/ml (0.00-0.06) 07/17/17 07:15 Total Protein 6.1 g/dl (6.4-8.3) L 07/16/17 16:02 Albumin 3.5 g/dl (3.5-5.0) 07/16/17 16:02 Triglycerides 55 mg/dl (35-160) 07/17/17 07:15 Cholesterol 131 mg/dl 07/17/17 07:15 Total LDL Cholesterol 83 mg/dl 07/17/17 07:15 HDL Cholesterol 37 mg/dl (29-89) 07/17/17 07:15 Microbiology 07/16/17 17:51 Blood - Peripheral Venous Blood Culture - Preliminary NO GROWTH OBTAINED AFTER 96 HOURS, INCUBATION TO CONTINUE FOR 1 DAYS. 07/16/17 17:51 Blood - Peripheral Venous Blood Culture - Preliminary NO GROWTH OBTAINED AFTER 96 HOURS, INCUBATION TO CONTINUE FOR 1 DAYS. HOSPITAL COURSE: 1)copd excerbation - wheezing resolved, after initating solumedrol with taper. - continue spiriva and symbicort - incentive spirometer - kept spo2 above 92% with supplemental O2 as needed - pulmonary consulted and followed 2)chest pain r/o acs - likely secondary to copd excerbation, troponin x 3 wnl - continuous cardiac monitoring no events noted - echo grade I diastolic dysfunction, ef 65-70% coronary artery disease - continue plavix, lipitor, fenobirate, and zetia hypertension - b/p remained at goal strict monitoring 3) anxiety/depression - continue home medication PLAN - discharge home with VNS - prednisione short course - continue all medications as prescribed - strict follow up with pulmonary within 3 weeks Date of Admission:07/16/17 Date of Discharge: 07/21/17 Minutes to complete discharge: 45 Discharge Summary Reason For Visit: CHEST PAIN Current Active Problems Acute bronchitis (Acute) Chest pain (Acute) Condition: Improved - Instructions Diet, Activity, Other Instructions: you were admitted to the hospital for copd exacerbation. - continue prednisone as prescribed, please take prednisone with food and take protonix while taking prednisone - continue all medications as prescribed - please follow up with your primary care physician within 2 weeks - please follow up with your spot checker within 3 weeks - if any new or persistent symptoms develop please return to the emergency department Referrals: Ford Wick MD [Staff Physician] - Disposition: VNS/HOME HEALTH CARE - Home Medications Comprehensive Discharge Medication List: Ambulatory Orders Aspirin [ASA -] 81 mg PO DAILY 04/29/14 Escitalopram Oxalate [Lexapro -] 30 mg PO DAILY 04/29/14 Alprazolam [Xanax] 1 mg PO BID 11/19/14 Bupropion HCl [Wellbutrin Xl -] 300 mg PO DAILY 06/14/15 Risperidone 2 mg PO BID 11/24/15 Zolpidem Tartrate [Ambien] 10 mg PO HS 11/25/15 Lisinopril 10 mg PO DAILY 10/28/16 Fenofibrate Nanocrystallized [Tricor] 48 mg PO DAILY 10/29/16 Atorvastatin Ca [Lipitor] 10 mg PO HS tablet 10/30/16 Ezetimibe [Zetia -] 10 mg PO HS tablet 10/30/16 Clopidogrel Bisulfate [Plavix -] 75 mg PO DAILY 04/23/17 Albuterol Sulfate Inhaler - [Ventolin Hfa Inhaler -] 2 inh PO Q4H PRN #1 inh Budesonide/Formeterol Fumarate [SYMBICORT 160/4.5mcg -] 2 puff IH BID #1 inhaler 04/27/17 Guaifenesin [Mucinex -] 600 mg PO BID #30 tablet.er 04/27/17 Tiotropium [place] [Spiriva] 1 puff IH DAILY #1 inh 04/27/17 This patient is new to me today: No Emergency Visit: Yes ED Registration Date: 07/16/17 Care time: The patient presented to the Emergency Department on the above date and was hospitalized for further evaluation of their emergent condition. Critical Care patient: No - Discharge Referral Referred to [facility] No
== END 2017-07-21 11:30 | disposition home health service (06) | DRG 192 ==
LOC: FER 15:34 → FM/S 18:11 → OBSVTOIN 18:11 → FM/S 07-18 16:27
PROVIDERS: ADMIT Internal Medicine; ATTEND Nurse Practitioner Family
DX: J44.1 Chronic obstructive pulmonary disease with (acute) exacerbation (principal); J20.9 Acute bronchitis, unspecified; I25.10 Atherosclerotic heart disease of native coronary artery without angina pectoris; Z95.5 Presence of coronary angioplasty implant and graft; I10 Essential (primary) hypertension; E78.5 Hyperlipidemia, unspecified; I25.2 Old myocardial infarction; F41.9 Anxiety disorder, unspecified; F32.9 Major depressive disorder, single episode, unspecified; Z87.891 Personal history of nicotine dependence; F10.10 Alcohol abuse, uncomplicated; G24.01 Drug induced subacute dyskinesia; Y90.0 Blood alcohol level of less than 20 mg/100 ml
CPT/HCPCS: 36415; 71046-TC-FY; 80048; 80053; 80061; 82550; 82553; 83735; 84100; 84484; 85025; 87040; 93005; 93306-TC; 94010; 94150; 94640; 97116-GP; 97161-GP; 99285-25; J2794

== ENCOUNTER 2017-09-19 18:29 | Emergency (ER) | payer OTHER, BC ==
[2017-09-19] MEDS ORDERED: ALBUTEROL SO4 2.5/IPRATROPIUM 0.5 INH SOL 3 ML VIAL.NEB. NEB ONE ×2 (18:44→18:46)
[2017-09-19 18:59] VITALS: BP 141/80; PULSE 82; TEMP 97.8; BMI 28.0
--- NOTE | 2017-09-19 19:07 | PDOC ---
History of Present Illness - General History Source: Patient Exam Limitations: No Limitations <Falguni Herr - Last Filed: 09/19/17 19:06> - History of Present Illness Initial Comments: 09/19/17 19:08 The patient is a 72 year old male with PMHx of COPD, Hypertension, CAD s/p cardiac stent x1, who presents to the emergency department with shortness of breath today. Patient comes to the ED frequently for his COPD. He states that his SOB is worse when he walks. He is here today because he ran out of his Spiriva. He denies any abdominal pain, vomiting, diarrhea, or constipation. He denies any chest pain, headache, fever, or chills. [facility]et[facility] Recovery Worker: Dr. Hines <Rani Washington - Last Filed: 09/19/17 19:09> - General Chief Complaint: Shortness of Breath Stated Complaint: SOB Past History - Past Medical History Anemia: No Asthma: No Cancer: No Cardiac Disorders: Yes (cardiac [id number], history of AR 2005) CVA: No COPD: Yes CHF: No DVT: No Dementia: (FORGETFUL) Diabetes: No GI Disorders: Yes (HEARTBURN) Disorders: No HTN: Yes Hypercholesterolemia: Yes Liver Disease: No Psychiatric Problems: Yes Seizures: No Thyroid Disease: No - Surgical History Abdominal Surgery: Yes (AAA 02/03/2017) Appendectomy: No Cardiac Surgery: Yes (cardiac stent 2005 & 04/2017) Cholecystectomy: No Lung Surgery: No Neurologic Surgery: No Orthopedic Surgery: No - Suicide/Smoking/Psychosocial Hx Smoking Status: No Smoking History: Never smoked Have you smoked in the past 12 months: No Number of Cigarettes Smoked Daily: 0 If you are a former smoker, when did you quit?: 2005 Information on smoking cessation initiated: No Hx Alcohol Use: No Drug/Substance Use Hx: No Substance Use Type: Alcohol Hx Substance Use Treatment: Yes <Falguni Herr - Last Filed: 09/19/17 19:06> <Rani Washington - Last Filed: 09/19/17 19:09> - Past Medical History Allergies/Adverse Reactions: Allergies Allergy/AdvReac Type Severity Reaction Status Date / Time No Known Allergies Allergy Verified 08/25/17 21:24 Home Medications: Ambulatory Orders Aspirin [ASA -] 81 mg PO DAILY 04/29/14 Escitalopram Oxalate [Lexapro -] 30 mg PO DAILY 04/29/14 Alprazolam [Xanax] 1 mg PO BID 11/19/14 Bupropion HCl [Wellbutrin Xl -] 300 mg PO DAILY 06/14/15 Risperidone 2 mg PO BID 11/24/15 Zolpidem Tartrate [Ambien] 10 mg PO HS 11/25/15 Lisinopril 10 mg PO DAILY 10/28/16 Fenofibrate Nanocrystallized [Tricor] 48 mg PO DAILY 10/29/16 Atorvastatin Ca [Lipitor] 10 mg PO HS tablet 10/30/16 Ezetimibe [Zetia -] 10 mg PO HS tablet 10/30/16 Clopidogrel Bisulfate [Plavix -] 75 mg PO DAILY 04/23/17 Albuterol Sulfate Inhaler - [Ventolin HFA Inhaler -] 2 inh PO Q4H PRN #1 inh Budesonide/Formeterol Fumarate [SYMBICORT 160/4.5mcg -] 2 puff IH BID #1 inhaler 04/27/17 Tiotropium [place] [Spiriva] 1 puff IH DAILY #1 inh 04/27/17 Pantoprazole Sodium [Protonix -] 40 mg PO DAILY #30 tablet.ec 07/21/17 predniSONE [Deltasone -] 5 mg PO ASDIR #32 tab 07/21/17 Review of Systems - Review of Systems Comments:: 09/19/17 19:08 GENERAL/CONSTITUTIONAL: No fever or chills. No weakness. HEAD, EYES, EARS, NOSE AND THROAT: No change in vision. No ear pain or discharge. No sore throat. GASTROINTESTINAL: No nausea, vomiting, diarrhea or constipation. GENITOURINARY: No dysuria, frequency, or change in urination. CARDIOVASCULAR: No chest pain. + shortness of breath. RESPIRATORY: No cough, wheezing, or hemoptysis. MUSCULOSKELETAL: No joint or muscle swelling or pain. No neck or back pain. SKIN: No rash NEUROLOGIC: No headache, vertigo, loss of consciousness, or change in strength/ sensation. ENDOCRINE: No increased thirst. No abnormal weight change. HEMATOLOGIC/LYMPHATIC: No anemia, easy bleeding, or history of blood clots. ALLERGIC/IMMUNOLOGIC: No hives or skin allergy. <Rani Washington - Last Filed: 09/19/17 19:09> *Physical Exam - Vital Signs Last Vital Signs Temp Pulse Resp BP Pulse Ox 97.8 F 82 20 141/80 96 09/19/17 18:29 09/19/17 18:29 09/19/17 18:29 09/19/17 18:29 09/19/17 18:29 - Physical Exam General Appearance: No: Appropriately Dressed, Apparent Distress, Obese Neck: negative: Normal Thyroid Respiratory/Chest: positive: Lungs Clear, Normal Breath Sounds. negative: Chest Tender, Respiratory Distress, Accessory Muscle Use Cardiovascular: positive: Regular Rhythm, Regular Rate, S1, S2 Gastrointestinal/Abdominal: positive: Normal Bowel Sounds, Flat, Soft. negative : Tender Musculoskeletal: positive: Normal Inspection Extremity: positive: Normal Capillary Refill, Normal Inspection, Normal Range of Motion Integumentary: positive: Normal Color, Dry, Warm Neurologic: positive: coffee grinder II-XII NML intact, Fully Oriented, Alert, Normal Mood/ Affect <Falguni Herr - Last Filed: 09/19/17 19:06> - Vital Signs Last Vital Signs Temp Pulse Resp BP Pulse Ox 97.8 F 82 20 141/80 96 09/19/17 18:29 09/19/17 18:29 09/19/17 18:29 09/19/17 18:29 09/19/17 18:29 <Rani Washington - Last Filed: 09/19/17 19:09> ED Treatment Course - Medications Given in the ED: ED Medications Discontinued Medications Generic Name Dose Route Start Last Admin Trade Name Freq PRN Reason Stop Dose Admin Albuterol/Ipratropium 1 amp 09/19/17 18:44 09/19/17 18:48 Duoneb - NEB 09/19/17 18:45 1 amp ONCE ONE Administration <Falguni Herr - Last Filed: 09/19/17 19:06> - Medications Given in the ED: ED Medications Discontinued Medications Generic Name Dose Route Start Last Admin Trade Name Freq PRN Reason Stop Dose Admin Albuterol/Ipratropium 1 amp 09/19/17 18:44 09/19/17 18:48 Duoneb - NEB 09/19/17 18:45 1 amp ONCE ONE Administration <Rani Washington - Last Filed: 09/19/17 19:09> Medical Decision Making - Medical Decision Making 09/19/17 19:06 72 yo male h/;o copd, cad, htn here with sob . ran out of spiriva. follows with dr. Hines has apointment in next few weeks. denies cp no f/c no leg swelling. given breathing tx on arrival now improved. on exam lungs now clear normal effort. plan cxr r/o pna, ekg. likely dc home if normal. <Falguni Herr - Last Filed: 09/19/17 19:06> *DC/Admit/Observation/Transfer - Attestations Scribe Attestion: 09/19/17 19:09 Documentation prepared by Rani Washington, acting as medical device assembler for Falguni Herr MD. <Rani Washington - Last Filed: 09/19/17 19:09>
--- NOTE | 2017-09-19 19:46 | PDOC ---
*Physical Exam - Vital Signs Last Vital Signs Temp Pulse Resp BP Pulse Ox 97.8 F 82 20 141/80 96 09/19/17 18:29 09/19/17 18:29 09/19/17 18:29 09/19/17 18:29 09/19/17 18:29 ED Treatment Course - Medications Given in the ED: ED Medications Discontinued Medications Generic Name Dose Route Start Last Admin Trade Name Freq PRN Reason Stop Dose Admin Albuterol/Ipratropium 1 amp 09/19/17 18:44 09/19/17 18:48 Duoneb - NEB 09/19/17 18:45 1 amp ONCE ONE Administration Progress Note - Progress Note Progress Note: Care of this patient was transferred to me from Dr. Lundberg at 1900 hrs. This is a 72-year-old male with history of COPD who ran out of his Spiriva. Patient came in complaining of some shortness of breath. Prior to my arrival patient was given a DuoNeb. 19:45 Reevaluation patient feels much better after his DuoNeb. Patient said that he needs a prescription for Spiriva I will send 1 to his pharmacy patient has an appointment with his instant printer operator in 1 month I told him it is important that he fell his instant printer operator to give him some refills Patient discharged *DC/Admit/Observation/Transfer Diagnosis at time of Disposition: COPD exacerbation, Medication refill - Discharge Dispostion Disposition: HOME Decision to Admit order: No - Referrals - Patient Instructions Additional Instructions: Take all your medications as prescribed. Make sure you follow-up with Dr. Hines within the next month and tell him that you need refills on your Spiriva. Return to the emergency department immediately with ANY new, persistent or worsening symptoms. Continue any medications as previously prescribed by your physician. You should follow up with your primary doctor as soon as possible regarding today's emergency department visit. . Please make sure your doctor reviews the results of your emergency evaluation. Thank you for coming to the Emergency Department today for your care. It was a pleasure to see you today. Please note that your evaluation is INCOMPLETE until you follow-up with your doctor. - Post Discharge Activity
--- NOTE | 2017-09-20 13:04 | EKG ---
Test Reason : Blood Pressure : / mmHG Vent. Rate : 062 BPM Atrial Rate : 062 BPM P-R Int : 184 ms QRS Dur : 090 ms QT Int : 422 ms P-R-T Axes : 019 -18 -02 degrees QTc Int : 428 ms NORMAL SINUS RHYTHM INFERIOR INFARCT (CITED ON OR BEFORE 21-AUG-2016) ABNORMAL ECG WHEN COMPARED WITH ECG OF 16-JUL-2017 15:47, INVERTED T WAVES HAVE REPLACED NONSPECIFIC T WAVE ABNORMALITY IN INFERIOR LEADS Confirmed by LISA REID MD ([id number]) on 09/20/2017 1:04:09 PM Referred By: DR LUCIANO Confirmed By:LISA REID MD
== END 2017-09-19 20:00 | disposition home or self-care (01) ==
LOC: FER 18:29
PROC: 3E0F7GC Introduction of Other Therapeutic Substance into Respiratory Tract, Via Natural or Artificial Opening (ICD-10-PCS; principal; 2017-09-19)
DX: J44.1 Chronic obstructive pulmonary disease with (acute) exacerbation (principal); I10 Essential (primary) hypertension; I25.10 Atherosclerotic heart disease of native coronary artery without angina pectoris; Z95.5 Presence of coronary angioplasty implant and graft; Z79.82 Long term (current) use of aspirin; E78.00 Pure hypercholesterolemia, unspecified; Z76.0 Encounter for issue of repeat prescription
CPT/HCPCS: 93005; 94640; 99282-25; J7620

== ENCOUNTER 2017-10-07 09:27 | Observation (INO) | payer OTHER, BC ==
--- NOTE | 2017-10-07 09:43 | PDOC ---
History of Present Illness - General Chief Complaint: Chest Pain Stated Complaint: CHEST PAIN Time Seen by Provider: 10/07/17 09:31 History Source: Patient Exam Limitations: No Limitations - History of Present Illness Initial Comments: 72 yo M history CAD, HTN, HL, AAA s/p repair last year, COPD, GERD presents with cp that started at rest this morning. No exacerbating/ameliorating factors. No associated nausea, vomiting, diaphoresis, SOB, leg swelling, abd pain. No recent illness. 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 Past History - Past Medical History Allergies/Adverse Reactions: Allergies Allergy/AdvReac Type Severity Reaction Status Date / Time No Known Allergies Allergy Verified 10/07/17 09:29 Home Medications: Ambulatory Orders Aspirin [ASA -] 81 mg PO DAILY 04/29/14 Escitalopram Oxalate [Lexapro -] 30 mg PO DAILY 04/29/14 Alprazolam [Xanax] 1 mg PO BID 11/19/14 Bupropion HCl [Wellbutrin Xl -] 300 mg PO DAILY 06/14/15 Risperidone 2 mg PO BID 11/24/15 Zolpidem Tartrate [Ambien] 10 mg PO HS 11/25/15 Lisinopril 10 mg PO DAILY 10/28/16 Fenofibrate Nanocrystallized [Tricor] 48 mg PO DAILY 10/29/16 Atorvastatin Ca [Lipitor] 10 mg PO HS tablet 10/30/16 Ezetimibe [Zetia -] 10 mg PO HS tablet 10/30/16 Clopidogrel Bisulfate [Plavix -] 75 mg PO DAILY 04/23/17 Albuterol Sulfate Inhaler - [Ventolin HFA Inhaler -] 2 inh PO Q4H PRN #1 inh Budesonide/Formeterol Fumarate [SYMBICORT 160/4.5mcg -] 2 puff IH BID #1 inhaler 04/27/17 Pantoprazole Sodium [Protonix -] 40 mg PO DAILY #30 tablet.ec 07/21/17 predniSONE [Deltasone -] 5 mg PO ASDIR #32 tab 07/21/17 Tiotropium [place] [Spiriva] 1 puff IH DAILY #1 inh 09/20/17 Anemia: No Asthma: No Cancer: No Cardiac Disorders: Yes (cardiac [id number], history of DC 2005) CVA: No COPD: Yes CHF: No DVT: No Dementia: (FORGETFUL) Diabetes: No GI Disorders: Yes (HEARTBURN) Disorders: No HTN: Yes Hypercholesterolemia: Yes Liver Disease: No Psychiatric Problems: Yes Seizures: No Thyroid Disease: No - Surgical History Abdominal Surgery: Yes (AAA 02/03/2017) Appendectomy: No Cardiac Surgery: Yes (cardiac stent 2005 & 04/2017) Cholecystectomy: No Lung Surgery: No Neurologic Surgery: No Orthopedic Surgery: No - Suicide/Smoking/Psychosocial Hx Smoking Status: No Smoking History: Never smoked Have you smoked in the past 12 months: No Number of Cigarettes Smoked Daily: 0 If you are a former smoker, when did you quit?: 2005 Hx Alcohol Use: No Drug/Substance Use Hx: No Substance Use Type: Alcohol Hx Substance Use Treatment: Yes Review of Systems - Review of Systems Able to Perform ROS?: Yes Comments:: GENERAL/CONSTITUTIONAL: No fever or chills. No weakness. HEAD, EYES, EARS, NOSE AND THROAT: No change in vision. No ear pain or discharge. No sore throat. CARDIOVASCULAR: +Chest pain. No shortness of breath. RESPIRATORY: No cough, wheezing, or hemoptysis. GASTROINTESTINAL: No nausea, vomiting, diarrhea or constipation. GENITOURINARY: No dysuria, frequency, or change in urination. MUSCULOSKELETAL: No joint or muscle swelling or pain. No neck or back pain. SKIN: No rash NEUROLOGIC: No headache, vertigo, loss of consciousness, or change in strength/ sensation. ENDOCRINE: No increased thirst. No abnormal weight change. HEMATOLOGIC/LYMPHATIC: No anemia, easy bleeding, or history of blood clots. ALLERGIC/IMMUNOLOGIC: No hives or skin allergy. *Physical Exam - Vital Signs Last Vital Signs Temp Pulse Resp BP Pulse Ox 97.8 F 65 18 122/89 98 10/07/17 09:27 10/07/17 09:27 10/07/17 09:27 10/07/17 09:27 10/07/17 09:27 - Physical Exam Comments: GENERAL: Awake, alert, and fully oriented, in no acute distress HEAD: No signs of trauma EYES: PERRLA, EOMI, sclera anicteric, conjunctiva clear ENT: Auricles normal inspection, hearing grossly normal, nares patent, oropharynx clear without exudates. Moist mucosa NECK: Normal ROM, supple, no lymphadenopathy, JVD, or masses LUNGS: Breath sounds equal, clear to auscultation bilaterally. No wheezes, and no crackles HEART: Regular rate and rhythm, normal S1 and S2, no murmurs, rubs or gallops ABDOMEN: Soft, nontender, normoactive bowel sounds. No guarding, no rebound. No masses EXTREMITIES: Normal range of motion, no edema. No clubbing or cyanosis. No cords, erythema, or tenderness NEUROLOGICAL: Cranial nerves II through XII grossly intact. Normal speech, normal gait. Motor and sensation intact. SKIN: Warm, Dry, normal turgor, no rashes or lesions noted. Heart Score/ECG Review - History History: Moderately suspicious - Electrocardiogram EKG: Normal - Age Age: >/= 65 - Risk Factors Risk Factors Heart Score: Yes Hx Hypercholesterolemia, Yes Hx Hypertension, Yes Positive family hx of cardiac disease Based on the list above the patient has:: >/=3 risk factors or Hx atherosclerotic disease - Troponin Troponin: </= normal limit - Score Heart Score - Total: 5 - ECG Impressions Comment:: EKG read 09:40- NSR 61 bpm, no acute ST/T changes ED Treatment Course - LABORATORY CBC & Chemistry Diagram: 10/07/17 09:51 10/07/17 09:51 Medical Decision Making - Medical Decision Making 10/07/17 10:56 Pt endorsed to hospitalist. Will place on obs for chest pain in light of multiple cardiac risk factors. Patient's public address system installer is Dr. Tabares, whose practice no longer comes to this hospital. *DC/Admit/Observation/Transfer Diagnosis at time of Disposition: Chest pain Qualifiers: Chest pain type: unspecified Qualified Code(s): R07.9 - Chest pain, unspecified - Discharge Dispostion Condition at time of disposition: Stable Decision to Admit order: Yes - Referrals - Patient Instructions - Post Discharge Activity
[2017-10-07 10:04] LABS: BASO % 0.5 % (0-2.0); EOS % 1.9 % (0-4.5); HEMATOCRIT 38.4 % (35.4-49); HEMOGLOBIN 13.1 GM/dl (11.7-16.9); LYMPH % 18.1 % (8-40); MCH 31.6 pg (25.7-33.7); MCHC 34.1 g/dl (32.0-35.9); MEAN CELL VOLUME 92.7 fl (80-96); MEAN PLT VOLUME 7.2 fl (7.5-11.1); MONO % 8.9 % (3.8-10.2); NEUT % 70.6 % (42.8-82.8); PLATELET COUNT 284 K/MM3 (134-434); RBC 4.15 M/mm3 (4.00-5.60); RDW 14.2 % (11.9-15.9); WHITE BLOOD COUNT 7.1 K/mm3 (4.0-10.8)
[2017-10-07 10:14] LABS: ALBUMIN 3.6 g/dl (3.5-5.0); ALK PHOS 67 U/L (32-92); ANION GAP 8 (8-16); BILIRUBIN,TOTAL 0.6 mg/dl (0.2-1.0); BLOOD UREA NITROGEN 30 mg/dl (7-18); CHLORIDE 98 mmol/L (98-107); CO2 24 mmol/L (22-28); CREATININE 1.4 mg/dl (0.6-1.3); GLUCOSE,RANDOM 104 mg/dl (74-106); SGOT/AST 15 U/L (10-42); SGPT/ALT 15 U/L (10-40); SODIUM 130 mmol/L (136-145); TOT PROT 6.1 g/dl (6.4-8.3)
[2017-10-07] MEDS ORDERED: ASPIRIN 81 MG CHEWABLE TABLETS PO ONE (11:01)
[2017-10-07] MEDS ORDERED: ASPIRIN 81 MG CHEWABLE TABLETS ONE (11:06)
[2017-10-07 13:03] VITALS: BMI 28.3
[2017-10-07] MEDS ORDERED: predniSONE 5 MG TABLET (UD) PO SCH ×2 (15:30→15:45)
[2017-10-07] MEDS ORDERED: SODIUM CHLORIDE 1,000 ML IV SCH (15:45)
[2017-10-07] MEDS: TIOTROPIUM BROMIDE 18 MCG CAPSULES IH SCH (16:10)
[2017-10-07] MEDS: ESCITALOPRAM OXALATE 20 MG TABLET (FP) PO SCH (16:10)
[2017-10-07] MEDS: CLOPIDOGREL BISULFATE 75 MG TABLET (FP) PO SCH (16:10)
[2017-10-07] MEDS: LISINOPRIL 10 MG TABLET (FP) PO SCH (16:11)
[2017-10-07] MEDS: risperiDONE 2 MG TABLET PO SCH ×2 (16:12→21:16)
--- NOTE | 2017-10-07 16:47 | HP ---
Admitting History and Physical - Admission Chief Complaint: chest pain History of Present Illness: This is a 72 year old male with pmhx HTN, CAD s/p GA 11 years ago, PCI, AAA repair with stent placement 01/2017 with Hector Madrid at [facility], anxiety and depression, tardive dyskinesia, COPD presented to the ED with chest pain. The patient was driving this morning when he experienced acute chest pain described as a stabbing and referred up his chest. There are no associated and exacerbating symptoms. Current, he has none, but at the time the pain was worse than when he had his GA 11 years ago. PT denies sob, abd pain, n/v. ED course: 1. trop x1 neg 2. EKG NSR, no st elevation History Source: Patient Limitations to Obtaining History: No Limitations - Past Medical History Cardiovascular: Yes: CAD, HTN, Hyperlipdemia, GA Pulmonary: Yes: COPD Gastrointestinal: Yes: Other (umbilical hernia) Heme/Onc: Yes: Anemia Psych: Yes: Anxiety, Depression - Past Surgical History Past Surgical History: Yes: None, Stent - Smoking History Smoking history: Never smoked Have you smoked in the past 12 months: No Aproximately how many cigarettes per day: 0 If you are a former smoker, when did you quit?: 2006 - Alcohol/Substance Use Hx Alcohol Use: No History of Substance Use: reports: None - Social History Usual Living Arrangement: Yes: Alone ADL: Independent 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 History of Recent Travel: No Home Medications - Allergies Allergies/Adverse Reactions: Allergies Allergy/AdvReac Type Severity Reaction Status Date / Time No Known Allergies Allergy Verified 10/07/17 15:26 - Home Medications Home Medications: Ambulatory Orders Aspirin [ASA -] 81 mg PO DAILY 04/29/14 Escitalopram Oxalate [Lexapro -] 30 mg PO DAILY 04/29/14 Alprazolam [Xanax] 1 mg PO BID 11/19/14 Bupropion HCl [Wellbutrin Xl -] 300 mg PO DAILY 06/14/15 Risperidone 2 mg PO BID 11/24/15 Zolpidem Tartrate [Ambien] 10 mg PO HS 11/25/15 Lisinopril 10 mg PO DAILY 10/28/16 Fenofibrate Nanocrystallized [Tricor] 48 mg PO DAILY 10/29/16 Atorvastatin Ca [Lipitor] 10 mg PO HS tablet 10/30/16 Ezetimibe [Zetia -] 10 mg PO HS tablet 10/30/16 Clopidogrel Bisulfate [Plavix -] 75 mg PO DAILY 04/23/17 Albuterol Sulfate Inhaler - [Ventolin HFA Inhaler -] 2 inh PO Q4H PRN #1 inh Budesonide/Formeterol Fumarate [SYMBICORT 160/4.5mcg -] 2 puff IH BID #1 inhaler 04/27/17 Pantoprazole Sodium [Protonix -] 40 mg PO DAILY #30 tablet.ec 07/21/17 predniSONE [Deltasone -] 5 mg PO ASDIR #32 tab 07/21/17 Tiotropium [place] [Spiriva] 1 puff IH DAILY #1 inh 09/20/17 Review of Systems - Review of Systems Constitutional: reports: No Symptoms Eyes: reports: No Symptoms HENT: reports: No Symptoms Neck: reports: No Symptoms Cardiovascular: reports: Chest Pain Respiratory: reports: No Symptoms Gastrointestinal: reports: No Symptoms Genitourinary: reports: No Symptoms Musculoskeletal: reports: No Symptoms Integumentary: reports: No Symptoms Neurological: reports: Pre-Existing Deficit (tardive dyskinesia) Endocrine: reports: No Symptoms Hematology/Lymphatic: reports: No Symptoms Psychiatric: reports: No Symptoms Physical Examination Vital Signs: Vital Signs Temperature 97.7 F 10/07/17 12:54 Pulse Rate 63 10/07/17 12:54 Respiratory Rate 19 10/07/17 12:54 Blood Pressure 139/68 10/07/17 12:54 O2 Sat by Pulse Oximetry (%) 97 10/07/17 11:11 Constitutional: Yes: No Distress Eyes: Yes: Conjunctiva Clear HENT: Yes: WNL Neck: Yes: Supple Cardiovascular: Yes: Regular Rate and Rhythm, S1, S2 Respiratory: Yes: Regular, CTA Bilaterally Gastrointestinal: Yes: Normal Bowel Sounds, Soft Renal/: Yes: WNL Extremities: Yes: WNL Edema: No Peripheral Pulses WNL: Yes Integumentary: Yes: WNL Neurological: Yes: Alert, Oriented, Other (tardive dyskinesia) Labs: CBC, BMP 10/07/17 09:51 10/07/17 09:51 Imaging - Results Chest X-ray: Report Reviewed, Image Reviewed Problem List - Problems (1) COPD (chronic obstructive pulmonary disease) Code(s): J44.9 - CHRONIC OBSTRUCTIVE PULMONARY DISEASE, UNSPECIFIED (2) Chest pain Code(s): R07.9 - CHEST PAIN, UNSPECIFIED Qualifiers: Chest pain type: unspecified Qualified Code(s): R07.9 - Chest pain, unspecified (3) Anxiety Code(s): F41.9 - ANXIETY DISORDER, UNSPECIFIED (4) CAD (coronary artery disease) Code(s): I25.10 - ATHSCL HEART DISEASE OF [place] CORONARY ARTERY W/O ANG PCTRS (5) Depression Code(s): F32.9 - MAJOR DEPRESSIVE DISORDER, SINGLE EPISODE, UNSPECIFIED (6) Hypertension Code(s): I10 - ESSENTIAL (PRIMARY) HYPERTENSION (7) S/P AAA repair Code(s): Z98.890 - OTHER SPECIFIED POSTPROCEDURAL STATES; Z86.79 - PERSONAL HISTORY OF OTHER DISEASES OF THE CIRCULATORY SYSTEM Assessment/Plan Assessment: 72 year old male presented with acute sternal chest pain Plan: 1. Chest pain - Trop x1 neg, obtain second now - Previous ECHO done 07/2017 - TSH - Cardiac monitoring - ASA - Cardiology consult, defer if want stress or repeat echo 2. CAD s/p GA, ?pci - ASA, lipitor 3. HTN - Controlled - Lisinopril 10mg daily 4. AAA repair - Plavix, ASA daily 5. Anxiety/Depression - Wellbutrin, lexapro, risperdal, xanax bid 6. COPD - Symbicort, spirivia - Maintain steroid 7. SUDARSHAN - Start hydration x1L - Can keep SHANI 8. Hyponatremia - NS 83cc/hr x1L 9. DVT - Heparin sq Visit type - Emergency Visit Emergency Visit: Yes ED Registration Date: 10/07/17 Care time: The patient presented to the Emergency Department on the above date and was hospitalized for further evaluation of their emergent condition. - New Patient This patient is new to me today: Yes Date on this admission: 10/07/17 - Critical Care Critical Care patient: No Hospitalist Screening - Colonoscopy Questionnaire Colonoscopy Questionnaire: Colonoscopy Questionnaire - Patient: 50 - 75 years old and never had a screening colonoscopy: Unknown History of colon or rectal polyps, or CA: Unknown History of IBD, Crohn's disease or UC: Unknown History of abdominal radiation therapy as a child: Unknown - Relative: 1 with colon or rectal CA, or polyps at age 60 or younger: Unknown Colon or rectal CA diagnosed at age 45 or younger: Unknown Multiple relatives with colon or rectal CA: Unknown - Outcome: Screening Result: Negative Screen
[2017-10-07] MEDS: HEPARIN NA (PORCINE) 5,000 UNITS/ML 1ML VIAL SQ SCH (17:57)
[2017-10-07] MEDS ORDERED: PT OWN MED DRAWER 7, Y5N ONE (21:12)
[2017-10-07] MEDS: ALPRAZolam 1 MG TABLET PO SCH (21:16)
[2017-10-07] MEDS: BUDESONIDE/FORMETEROL FUMARATE 160/4.5 mcg INHALER IH SCH (21:16)
[2017-10-07] MEDS ORDERED: PATIENT'S OWN MEDICATION (NON-FORMULARY) (Zolpidem Tartrate [Ambien] 5 MG) PO SCH (22:00)
[2017-10-07] MEDS ORDERED: ALPRAZolam 0.25 MG TABLET PO SCH (22:00)
[2017-10-07] MEDS ORDERED: ATORVASTATIN CA 10 MG TABLET (FP) PO SCH (22:00)
[2017-10-07] MEDS ORDERED: ZOLPIDEM TARTRATE 5 MG TABLET PO PRN (22:00)
[2017-10-07] MEDS ORDERED: PATIENT'S OWN MEDICATION (NON-FORMULARY) (Zolpidem Tartrate [Ambien] 10 MG) PO SCH (22:00)
[2017-10-07] MEDS ORDERED: PATIENT'S OWN MEDICATION (NON-FORMULARY) (Alprazolam [Xanax] 1 MG) PO SCH (22:00)
[2017-10-08] MEDS: HEPARIN NA (PORCINE) 5,000 UNITS/ML 1ML VIAL SQ SCH ×2 (03:11→09:19)
[2017-10-08 09:09] LABS: EOS % 1.6 % (0-4.5); HEMATOCRIT 37.3 % (35.4-49); HEMOGLOBIN 12.8 GM/dl (11.7-16.9); LYMPH % 19.2 % (8-40); MCH 32.1 pg (25.7-33.7); MCHC 34.3 g/dl (32.0-35.9); MEAN CELL VOLUME 93.6 fl (80-96); MEAN PLT VOLUME 7.3 fl (7.5-11.1); MONO % 7.1 % (3.8-10.2); NEUT % 71.8 % (42.8-82.8); PLATELET COUNT 279 K/MM3 (134-434); RBC 3.98 M/mm3 (4.00-5.60); RDW 14.4 % (11.9-15.9); WHITE BLOOD COUNT 8.7 K/mm3 (4.0-10.8)
[2017-10-08 09:12] VITALS: BP 104/59; PULSE 58; TEMP 97.5
[2017-10-08] MEDS: CLOPIDOGREL BISULFATE 75 MG TABLET (FP) PO SCH (09:13)
[2017-10-08] MEDS: ALPRAZolam 1 MG TABLET PO SCH (09:14)
[2017-10-08] MEDS: ESCITALOPRAM OXALATE 20 MG TABLET (FP) PO SCH (09:15)
[2017-10-08] MEDS: LISINOPRIL 10 MG TABLET (FP) PO SCH (09:15)
[2017-10-08] MEDS: TIOTROPIUM BROMIDE 18 MCG CAPSULES IH SCH (09:15)
[2017-10-08 09:16] LABS: ALBUMIN 3.1 g/dl (3.5-5.0); ALK PHOS 58 U/L (32-92); ANION GAP 6 (8-16); BILIRUBIN,TOTAL 0.3 mg/dl (0.2-1.0); BLOOD UREA NITROGEN 24 mg/dl (7-18); CALCIUM 8.9 mg/dl (8.4-10.2); CHLORIDE 106 mmol/L (98-107); CO2 25 mmol/L (22-28); CREATININE 1.1 mg/dl (0.6-1.3); GLUCOSE,RANDOM 92 mg/dl (74-106); PHOSPHOROUS 3.7 mg/dl (2.5-4.6); POTASSIUM 4.6 mmol/L (3.5-5.1); SGOT/AST 13 U/L (10-42); SGPT/ALT 12 U/L (10-40); SODIUM 137 mmol/L (136-145); TOT PROT 5.4 g/dl (6.4-8.3)
[2017-10-08] MEDS ORDERED: PT OWN MED DRAWER 7, Y5N ONE (09:18)
[2017-10-08] MEDS: risperiDONE 2 MG TABLET PO SCH (09:18)
[2017-10-08] MEDS: BUDESONIDE/FORMETEROL FUMARATE 160/4.5 mcg INHALER IH SCH (09:19)
[2017-10-08 09:24] LABS: BASO % 0.4 % (0-2.0)
--- NOTE | 2017-10-08 09:55 | DS ---
Physical Exam: SUBJECTIVE: Patient seen and examined. No chest pain, baseline POWELL. No complaints. OBJECTIVE: Vital Signs Period Temp Pulse Resp BP Sys/Gonzales Pulse Ox Last 24 Hr 97.5 F-98.2 F 53-64 16-20 104-139/47-94 95-98 PHYSICAL EXAM GENERAL: The patient is awake, alert, and fully oriented, in no acute distress. HEAD: Normal with no signs of trauma. EYES: PERRL, extraocular movements intact, sclera anicteric, conjunctiva clear. ENT: Ears normal, nares patent, oropharynx clear without exudates, moist mucous membranes. NECK: Trachea midline, full range of motion, supple. LUNGS: Breath sounds equal, clear to auscultation bilaterally, no wheezes, no crackles, no accessory muscle use. HEART: Regular rate and rhythm, S1, S2 without murmur, rub or gallop. ABDOMEN: Soft, nontender, nondistended, normoactive bowel sounds, no guarding, no rebound, no hepatosplenomegaly, no masses. EXTREMITIES: 2+ pulses, warm, well-perfused, no edema. NEUROLOGICAL: Cranial nerves II through XII grossly intact. Normal speech, gait not observed. Tardive dyskinesia. PSYCH: Normal mood, normal affect. SKIN: Warm, dry, normal turgor, no rashes or lesions noted. LABS Laboratory Results - last 24 hr 10/07/17 10/07/17 10/07/17 09:51 09:51 09:51 WBC 7.1 RBC 4.15 Hgb 13.1 Hct 38.4 MCV 92.7 MCH 31.6 MCHC 34.1 RDW 14.2 Plt Count 284 D MPV 7.2 L Neutrophils % 70.6 Lymphocytes % 18.1 D Monocytes % 8.9 Eosinophils % 1.9 D Basophils % 0.5 D Sodium 130 L Potassium 4.0 Chloride 98 Carbon Dioxide 24 Anion Gap 8 BUN 30 H Creatinine 1.4 H Creat Clearance w eGFR 49.68 Random Glucose 104 Calcium 9.0 Phosphorus Magnesium Total Bilirubin 0.6 D AST 15 D ALT 15 Alkaline Phosphatase 67 Creatine Kinase 55 Troponin I < 0.03 Total Protein 6.1 L Albumin 3.6 TSH 10/07/17 10/07/17 10/08/17 17:12 17:12 08:30 WBC 8.7 RBC 3.98 L Hgb 12.8 Hct 37.3 MCV 93.6 MCH 32.1 MCHC 34.3 RDW 14.4 Plt Count 279 MPV 7.3 L Neutrophils % 71.8 Lymphocytes % 19.2 Monocytes % 7.1 Eosinophils % 1.6 Basophils % 0.4 Sodium Potassium Chloride Carbon Dioxide Anion Gap BUN Creatinine Creat Clearance w eGFR Random Glucose Calcium Phosphorus Magnesium Total Bilirubin AST ALT Alkaline Phosphatase Creatine Kinase Troponin I < 0.03 Total Protein Albumin TSH 0.75 D 10/08/17 10/08/17 10/08/17 08:30 09:03 09:03 WBC RBC Hgb Hct MCV MCH MCHC RDW Plt Count MPV Neutrophils % Lymphocytes % Monocytes % Eosinophils % Basophils % Sodium 137 Potassium 4.6 Chloride 106 Carbon Dioxide 25 Anion Gap 6 L BUN 24 H Creatinine 1.1 D Creat Clearance w eGFR > 60 Random Glucose 92 Calcium 8.9 Phosphorus 3.7 Magnesium 2.0 Total Bilirubin 0.3 D AST 13 ALT 12 Alkaline Phosphatase 58 Creatine Kinase 41 Troponin I < 0.03 Total Protein 5.4 L Albumin 3.1 L TSH HOSPITAL COURSE: This is a 72 year old male with HTN, CAD s/p ND 11 years ago, PCI, AAA repair with stent placement 01/[address] Maryanne LOPEZ, anxiety and depression, tardive dyskinesia, and COPD who presented with stabbing chest pain that started while driving. The pain resolved prior to arrival in the ED and has not recurred. EKG sinus arrhythmia, no ischemic changes Trop neg x 3 CXR: cardiomegaly, no acute process No events on telemetry. Patient will follow up with his manager of distribution (Dr. Ocasio in [place]) on Monday. Return precautions reviewed. Date of Admission:10/07/17 Date of Discharge: 10/08/17 Minutes to complete discharge: 30 Discharge Summary Reason For Visit: CHEST PAIN Current Active Problems COPD (chronic obstructive pulmonary disease) (Acute) Chest pain (Acute) Condition: Improved - Instructions Diet, Activity, Other Instructions: -Continue all of your prescribed medications -Follow up with Dr. Markus Ocasio on Monday -Return here for repeated episodes of chest pain, shortness of breath, or any other concerning symptoms Disposition: HOME - Home Medications Comprehensive Discharge Medication List: Ambulatory Orders Aspirin [ASA -] 81 mg PO DAILY 12/16/14 Escitalopram Oxalate [Lexapro -] 30 mg PO DAILY 04/29/14 Alprazolam [Xanax] 1 mg PO BID 11/19/14 Bupropion HCl [Wellbutrin Xl -] 300 mg PO DAILY 06/14/15 Risperidone 2 mg PO BID 11/24/15 Zolpidem Tartrate [Ambien] 10 mg PO HS 11/25/15 Lisinopril 10 mg PO DAILY 10/28/16 Fenofibrate Nanocrystallized [Tricor] 48 mg PO DAILY 10/29/16 Atorvastatin Ca [Lipitor] 10 mg PO HS tablet 10/30/16 Ezetimibe [Zetia -] 10 mg PO HS tablet 10/30/16 Clopidogrel Bisulfate [Plavix -] 75 mg PO DAILY 04/23/17 Albuterol Sulfate Inhaler - [Ventolin HFA Inhaler -] 2 inh PO Q4H PRN #1 inh Budesonide/Formeterol Fumarate [SYMBICORT 160/4.5mcg -] 2 puff IH BID #1 inhaler 04/27/17 Pantoprazole Sodium [Protonix -] 40 mg PO DAILY #30 tablet.ec 07/21/17 predniSONE [Deltasone -] 5 mg PO ASDIR #32 tab 07/21/17 Tiotropium [place] [Spiriva] 1 puff IH DAILY #1 inh 09/20/17 This patient is new to me today: Yes Date on this admission: 10/08/17 Emergency Visit: Yes ED Registration Date: 10/07/17 Care time: The patient presented to the Emergency Department on the above date and was hospitalized for further evaluation of their emergent condition. Critical Care patient: No - Discharge Referral Referred to [facility] Med P.C.: No
[2017-10-08] MEDS ORDERED: ASPIRIN 81 MG CHEWABLE TABLETS PO SCH (10:00)
--- NOTE | 2017-10-08 20:44 | EKG ---
Test Reason : Blood Pressure : / mmHG Vent. Rate : 061 BPM Atrial Rate : 061 BPM P-R Int : 184 ms QRS Dur : 092 ms QT Int : 424 ms P-R-T Axes : 052 -27 021 degrees QTc Int : 426 ms SINUS RHYTHM WITH MARKED SINUS ARRHYTHMIA MINIMAL VOLTAGE CRITERIA FOR LVH, MAY BE NORMAL VARIANT INFERIOR INFARCT (CITED ON OR BEFORE 21-AUG-2016) ABNORMAL ECG WHEN COMPARED WITH ECG OF 19-SEP-2017 19:11, NO SIGNIFICANT CHANGE WAS FOUND Confirmed by LISA REID MD ([id number]) on 10/08/2017 8:44:15 PM Referred By: AMY Confirmed By:LISA REID MD
== END 2017-10-08 12:43 | disposition home or self-care (01) ==
LOC: FER 09:27 → FM/S 12:43
PROVIDERS: ADMIT Hospitalist; ATTEND Registered Nurse Emergency
PROC: 3E0F7GC Introduction of Other Therapeutic Substance into Respiratory Tract, Via Natural or Artificial Opening (ICD-10-PCS; principal; 2017-10-07)
DX: R07.9 Chest pain, unspecified (principal); I10 Essential (primary) hypertension; I25.2 Old myocardial infarction; I25.10 Atherosclerotic heart disease of native coronary artery without angina pectoris; E78.5 Hyperlipidemia, unspecified; E87.1 Hypo-osmolality and hyponatremia; J44.9 Chronic obstructive pulmonary disease, unspecified; K21.9 Gastro-esophageal reflux disease without esophagitis; F41.9 Anxiety disorder, unspecified; F32.9 Major depressive disorder, single episode, unspecified; N17.9 Acute kidney failure, unspecified; Z95.5 Presence of coronary angioplasty implant and graft; Z86.79 Personal history of other diseases of the circulatory system; Z79.82 Long term (current) use of aspirin; Z79.01 Long term (current) use of anticoagulants
CPT/HCPCS: 36415; 71045-TC-FY; 80053; 82550; 83735; 84100; 84443; 84484; 85025; 93005; 94640; 99285-25; G0378; J7030

== ENCOUNTER 2017-11-16 15:07 | Observation (INO) | payer OTHER, BC ==
[2017-11-16] MEDS ORDERED: predniSONE 20 MG TABLET (UD) PO ONE (15:39)
[2017-11-16] MEDS ORDERED: ACETAMINOPHEN 325 MG TABLET (FP) PO ONE (15:39)
[2017-11-16] MEDS ORDERED: ALBUTEROL SO4 2.5/IPRATROPIUM 0.5 INH SOL 3 ML VIAL.NEB. NEB ONE ×4 (15:40→17:21)
[2017-11-16] MEDS ORDERED: predniSONE 20 MG TABLET (UD) ONE (15:54)
[2017-11-16] MEDS ORDERED: ACETAMINOPHEN 325 MG TABLET (FP) ONE (15:54)
[2017-11-16 16:29] LABS: BASO % 0.2 % (0-2.0); EOS % 1.1 % (0-4.5); HEMATOCRIT 36.8 % (35.4-49); HEMOGLOBIN 12.6 GM/dl (11.7-16.9); LYMPH % 15.6 % (8-40); MCH 31.7 pg (25.7-33.7); MCHC 34.3 g/dl (32.0-35.9); MEAN CELL VOLUME 92.6 fl (80-96); MEAN PLT VOLUME 7.2 fl (7.5-11.1); MONO % 7.8 % (3.8-10.2); NEUT % 75.3 % (42.8-82.8); PLATELET COUNT 318 K/MM3 (134-434); RBC 3.97 M/mm3 (4.00-5.60); RDW 13.6 % (11.9-15.9); WHITE BLOOD COUNT 12.8 K/mm3 (4.0-10.8)
[2017-11-16 16:34] LABS: ALBUMIN 3.3 g/dl (3.5-5.0); ALK PHOS 65 U/L (32-92); ANION GAP 6 (8-16); BLOOD UREA NITROGEN 22 mg/dl (7-18); CALCIUM 8.7 mg/dl (8.4-10.2); CHLORIDE 99 mmol/L (98-107); CO2 26 mmol/L (22-28); CREATININE 1.4 mg/dl (0.6-1.3); GLUCOSE,RANDOM 111 mg/dl (74-106); POTASSIUM 3.2 mmol/L (3.5-5.1); SGOT/AST 20 U/L (10-42); SGPT/ALT 18 U/L (10-40); SODIUM 131 mmol/L (136-145); TOT PROT 5.7 g/dl (6.4-8.3)
[2017-11-16 16:36] LABS: BILIRUBIN,TOTAL < 0.3 mg/dl (0.2-1.0)
--- NOTE | 2017-11-16 16:42 | PDOC ---
History of Present Illness - General Chief Complaint: Shortness of Breath Stated Complaint: sob Time Seen by Provider: 11/16/17 15:23 History Source: Patient Exam Limitations: No Limitations - History of Present Illness Initial Comments: 11/16/17 16:37 CHIEF COMPLAINT: "I feel short of breath." HISTORY OF PRESENT ILLNESS: This is a 72-year-old man, former smoker, history of COPD and CAD as well as AAA repair, presents complaining of onset of worsening shortness of breath since this morning. Patient has a long-standing history of COPD and gets periodic exacerbations. Today when he awoke he felt more short of breath than usual, he tried taking his Spiriva and albuterol but did not get relief, he decided to come to the emergency department for treatment. He states his cough has been increased over the last several days. The cough is dry without sputum production. He denies fever or chills. He denies chest pain. He denies nausea or vomiting. He denies any leg swelling or pain. REVIEW OF SYSTEMS: GENERAL/CONSTITUTIONAL: No fever or chills. No weakness. No weight change. HEAD, EYES, EARS, NOSE AND THROAT: No change in vision. No ear pain or discharge. No sore throat. CARDIOVASCULAR: No chest pain. (+) Positive shortness of breath RESPIRATORY: (+) Positive cough. No wheezing or hemoptysis. GASTROINTESTINAL: No nausea, vomiting, diarrhea or constipation. No rectal bleeding. GENITOURINARY: No dysuria, frequency, or change in urination. MUSCULOSKELETAL: No joint or muscle swelling or pain. No neck or back pain. SKIN AND BREASTS: No rash or easy bruising. NEUROLOGIC: No headache, vertigo, loss of consciousness, or loss of sensation. PSYCHIATRIC: No depression or anxiety. ENDOCRINE: No increased thirst. No abnormal weight change. HEMATOLOGIC/LYMPHATIC: No anemia, easy bleeding, or history of blood clots. ALLERGIC/IMMUNOLOGIC: No hives or skin allergy. No latex allergy. Past History - Past Medical History Allergies/Adverse Reactions: Allergies Allergy/AdvReac Type Severity Reaction Status Date / Time No Known Allergies Allergy Verified 11/16/17 15:08 Home Medications: Ambulatory Orders Aspirin [ASA -] 81 mg PO DAILY 04/29/14 Escitalopram Oxalate [Lexapro -] 30 mg PO DAILY 04/29/14 Alprazolam [Xanax] 1 mg PO BID 11/19/14 Bupropion HCl [Wellbutrin Xl -] 300 mg PO DAILY 06/14/15 Risperidone 2 mg PO BID 11/24/15 Zolpidem Tartrate [Ambien] 10 mg PO HS 11/25/15 Lisinopril 10 mg PO DAILY 10/28/16 Fenofibrate Nanocrystallized [Tricor] 48 mg PO DAILY 10/29/16 Atorvastatin Ca [Lipitor] 10 mg PO HS tablet 10/30/16 Ezetimibe [Zetia -] 10 mg PO HS tablet 10/30/16 Clopidogrel Bisulfate [Plavix -] 75 mg PO DAILY 04/23/17 Albuterol Sulfate Inhaler - [Ventolin HFA Inhaler -] 2 inh PO Q4H PRN #1 inh Budesonide/Formeterol Fumarate [SYMBICORT 160/4.5mcg -] 2 puff IH BID #1 inhaler 04/27/17 Pantoprazole Sodium [Protonix -] 40 mg PO DAILY #30 tablet.ec 07/21/17 Tiotropium [place] [Spiriva] 1 puff IH DAILY #1 inh 09/20/17 predniSONE [Deltasone -] 4 mg PO ASDIR 11/16/17 Anemia: No Asthma: No Cancer: No Cardiac Disorders: Yes (cardiac [id number], history of AR 2005) CVA: No COPD: Yes CHF: No DVT: No Dementia: (FORGETFUL) Diabetes: No GI Disorders: Yes (HEARTBURN) Disorders: No HTN: Yes Hypercholesterolemia: Yes Liver Disease: No Psychiatric Problems: Yes Seizures: No Thyroid Disease: No - Surgical History Abdominal Surgery: Yes (AAA 02/03/2017) Appendectomy: No Cardiac Surgery: Yes (cardiac stent 2005 & 04/2017) Cholecystectomy: No Lung Surgery: No Neurologic Surgery: No Orthopedic Surgery: No - Suicide/Smoking/Psychosocial Hx Smoking Status: No Smoking History: Never smoked Have you smoked in the past 12 months: No Number of Cigarettes Smoked Daily: 0 If you are a former smoker, when did you quit?: 2005 Information on smoking cessation initiated: No Hx Alcohol Use: Yes (hx) Drug/Substance Use Hx: No Substance Use Type: Alcohol Hx Substance Use Treatment: Yes (patient states he quit alcohol 6 months) *Physical Exam - Vital Signs Last Vital Signs Temp Pulse Resp BP Pulse Ox 97.5 F L 107 H 20 114/61 98 11/16/17 15:08 11/16/17 15:08 11/16/17 15:08 11/16/17 15:08 11/16/17 15:08 - Physical Exam Comments: 11/16/17 16:39 GENERAL: The patient is awake, alert, and fully oriented, in no acute distress. He has a kyphotic chest. HEAD: Normal with no signs of trauma. EYES: Pupils equal, round and reactive to light, extraocular movements intact, sclera anicteric, conjunctiva clear. ENT: Ears normal, nares patent, oropharynx clear without exudates. Moist mucous membranes. NECK: Normal range of motion, supple without lymphadenopathy, JVD, or masses. LUNGS: Mild decrease in breath sounds bilaterally. Prolonged expiration. No wheezing or crackles. HEART: Regular rate and rhythm, normal S1 and S2 without murmur, rub or gallop. ABDOMEN: Soft, nontender, normoactive bowel sounds. No guarding, no rebound. No masses. EXTREMITIES: Normal range of motion, no edema. No clubbing or cyanosis. No cords, erythema, or tenderness. No varicose veins. NEUROLOGICAL: Cranial nerves II through XII grossly intact. Normal speech, normal gait. PSYCH: Normal mood, normal affect. SKIN: Warm, Dry, normal turgor, no rashes. Positive spider angiomata over the thorax. No other lesions noted. Heart Score/ECG Review - ECG Impressions Comment:: 11/16/17 16:41 Twelve-lead EKG shows normal sinus rhythm at a rate of 94 bpm. The axis is leftward. The intervals are normal. There are inferior Q waves which are old in comparison with prior EKG. There is some mild T-wave flattening in the precordial leads. There is LVH by voltage. Impression: Normal sinus rhythm. Inferior wall AR, no change from prior EKG of 10/07/2017. Mild nonspecific T-wave flattening in the precordial leads. ED Treatment Course - LABORATORY CBC & Chemistry Diagram: 11/16/17 15:53 11/16/17 15:53 - ADDITIONAL ORDERS Additional order review: Laboratory Results 11/16/17 15:53 Sodium 131 L Potassium 3.2 L D Chloride 99 Carbon Dioxide 26 Anion Gap 6 L BUN 22 H Creatinine 1.4 H Creat Clearance w eGFR 49.68 Random Glucose 111 H D Calcium 8.7 Total Bilirubin < 0.3 AST 20 D ALT 18 D Alkaline Phosphatase 65 Total Protein 5.7 L Albumin 3.3 L 11/16/17 15:53 RBC 3.97 L MCV 92.6 MCHC 34.3 RDW 13.6 MPV 7.2 L Neutrophils % 75.3 Lymphocytes % 15.6 Monocytes % 7.8 Eosinophils % 1.1 Basophils % 0.2 - RADIOLOGY Radiology Studies Ordered: Category Date Time Status CHEST PA & LAT [RAD] Stat Radiology 11/16/17 15:40 Ordered - Medications Given in the ED: ED Medications Discontinued Medications Generic Name Dose Route Start Last Admin Trade Name Freq PRN Reason Stop Dose Admin Acetaminophen 650 mg 11/16/17 15:39 11/16/17 15:57 Tylenol - PO 11/16/17 15:40 650 mg ONCE ONE Administration Albuterol/Ipratropium 1 amp 11/16/17 15:40 11/16/17 16:10 Duoneb - NEB 11/16/17 15:41 1 amp ONCE ONE Administration Prednisone 40 mg 11/16/17 15:39 11/16/17 15:57 Deltasone - PO 11/16/17 15:40 40 mg ONCE ONE Administration Medical Decision Making - Medical Decision Making 11/16/17 17:14 Patient with history of COPD presents complaining of worsening shortness of breath. He states his cough has been increased, but without sputum production. He feels short of breath with minimal exertion. On examination, he has prolonged expiration and decreased breath sounds, but no acute wheezes. There is no leg edema. Chest x-ray PA and lateral on my preliminary review shows no acute infiltrates. White blood cell count is mildly increased. Other labs notable for mild hyponatremia, hypokalemia which has been ordered for repletion, and mild azotemia which is chronic. Impression: COPD exacerbation. Patient received DuoNeb's and prednisone 40 mg by mouth. He will be treated with doxycycline as well for his increased cough. Plan for admission to observation to assess his progress. 11/16/17 17:39 Patient presented to the [facility] for admission to observation for COPD exacerbation. He had some mild intermittent desaturation so given nasal oxygen with good response. Plan for treatment is nebulizers, oral prednisone, and doxycycline. Pulmonary review of the chest x-ray shows no focal infiltrates. Patient endorsed to [facility], admitting for Dr. Lerma. *DC/Admit/Observation/Transfer Diagnosis at time of Disposition: COPD exacerbation - Discharge Dispostion Condition at time of disposition: Stable Decision to Admit order: Yes Decision to Admit order Date/Time: 11/16/17 17:40 Endorsed to [facility] - Referrals - Patient Instructions - Post Discharge Activity
[2017-11-16] MEDS ORDERED: POTASSIUM CHLORIDE TABS 20 MEQ TABLET.ER (FP) PO ONE ×2 (17:12→17:16)
[2017-11-16] MEDS ORDERED: DOXYCYCLINE HYCLATE 100 MG CAPSULE PO ONE ×2 (17:39→17:58)
[2017-11-16] MEDS ORDERED: ALBUTEROL SO4 0.083% IH SOL 2.5 MG/3 ML VIAL.NEB. NEB PRN (19:13)
[2017-11-16] MEDS: BUDESONIDE/FORMETEROL FUMARATE 160/4.5 mcg INHALER IH SCH (21:17)
[2017-11-16] MEDS: ALPRAZolam 0.25 MG TABLET PO SCH (21:18)
[2017-11-16] MEDS: risperiDONE 1 MG TABLET (FP) PO SCH (21:18)
[2017-11-16] MEDS: ZOLPIDEM TARTRATE 5 MG TABLET PO PRN (21:18)
[2017-11-16] MEDS: EZETIMIBE 10 MG TABLET (FP) PO SCH (21:18)
[2017-11-16] MEDS: ATORVASTATIN CA 10 MG TABLET (FP) PO SCH (21:18)
[2017-11-16 23:25] VITALS: BMI 28.8
[2017-11-17 08:11] LABS: HEMATOCRIT 37.6 % (35.4-49); MCHC 34.5 g/dl (32.0-35.9); MEAN CELL VOLUME 92.7 fl (80-96); MEAN PLT VOLUME 6.7 fl (7.5-11.1); PLATELET COUNT 310 K/MM3 (134-434); RBC 4.06 M/mm3 (4.00-5.60); RDW 13.6 % (11.9-15.9); WHITE BLOOD COUNT 10.4 K/mm3 (4.0-10.8)
[2017-11-17 08:34] LABS: ALBUMIN 3.3 g/dl (3.5-5.0); ALK PHOS 64 U/L (32-92); ANION GAP 6 (8-16); BILIRUBIN,TOTAL 0.2 mg/dl (0.2-1.0); BLOOD UREA NITROGEN 20 mg/dl (7-18); CALCIUM 9.2 mg/dl (8.4-10.2); CHLORIDE 104 mmol/L (98-107); CO2 28 mmol/L (22-28); CREATININE 1.2 mg/dl (0.6-1.3); GLUCOSE,RANDOM 104 mg/dl (74-106); POTASSIUM 4.3 mmol/L (3.5-5.1); SGOT/AST 15 U/L (10-42); SGPT/ALT 18 U/L (10-40); SODIUM 138 mmol/L (136-145); TOT PROT 5.9 g/dl (6.4-8.3)
[2017-11-17] MEDS ORDERED: PT OWN MED DRAWER 7, Y5N ONE ×2 (09:17→21:04)
--- NOTE | 2017-11-17 09:18 | EKG ---
Test Reason : Blood Pressure : / mmHG Vent. Rate : 094 BPM Atrial Rate : 094 BPM P-R Int : 218 ms QRS Dur : 094 ms QT Int : 380 ms P-R-T Axes : 030 -35 017 degrees QTc Int : 475 ms SINUS RHYTHM WITH SINUS ARRHYTHMIA WITH 1ST DEGREE A-V BLOCK LEFT AXIS DEVIATION MINIMAL VOLTAGE CRITERIA FOR LVH, MAY BE NORMAL VARIANT INFERIOR INFARCT (CITED ON OR BEFORE 21-AUG-2016) ABNORMAL ECG WHEN COMPARED WITH ECG OF 07-OCT-2017 09:34, [place] INTERVAL HAS INCREASED VENT. RATE HAS INCREASED BY 33 BPM Confirmed by MERLENE ZUNIGA MD ([id number]) on 11/17/2017 9:17:59 AM Referred By: DR VILLANUEVA Confirmed By:MERLENE ZUNIGA MD
[2017-11-17] MEDS: FENOFIBRIC ACID 45 MG CAP PO SCH (09:22)
[2017-11-17] MEDS: ESCITALOPRAM OXALATE 20 MG TABLET (FP) PO SCH (09:23)
[2017-11-17] MEDS: LISINOPRIL 10 MG TABLET (FP) PO SCH (09:23)
[2017-11-17] MEDS: ASPIRIN 81 MG CHEWABLE TABLETS PO SCH (09:23)
[2017-11-17] MEDS: ALPRAZolam 0.25 MG TABLET PO SCH ×2 (09:24→21:10)
[2017-11-17] MEDS: PANTOPRAZOLE 40 MG TABLET (FP) PO SCH (09:25)
[2017-11-17] MEDS: risperiDONE 1 MG TABLET (FP) PO SCH ×2 (09:25→21:12)
[2017-11-17] MEDS: CLOPIDOGREL BISULFATE 75 MG TABLET (FP) PO SCH (09:25)
[2017-11-17] MEDS: TIOTROPIUM BROMIDE 18 MCG CAPSULES IH SCH (09:26)
[2017-11-17] MEDS: BUDESONIDE/FORMETEROL FUMARATE 160/4.5 mcg INHALER IH SCH ×2 (09:26→22:23)
[2017-11-17] MEDS ORDERED: predniSONE 20 MG TABLET (UD) PO SCH (10:00)
[2017-11-17] MEDS ORDERED: ESCITALOPRAM OXALATE 20 MG TABLET (FP) PO SCH (10:00)
--- NOTE | 2017-11-17 10:46 | HP ---
CHIEF COMPLAINT: shortness of breath PCP: Dr Grullon HISTORY OF PRESENT ILLNESS: Patient is a 72 y/o male with a past medical history of COPD (former smoker), CAD, AAA (stent placement), and anxiety/ depression. Patient reports feeling shortness of breath since yesterday morning. He reports taking his prescribed spiriva and albuterol with no relief of symptoms. He reports ongoing dry cough for the past five days. Patient denies any chest pain or syncopal episodes. ER course was notable for: (1)chest xray no acute pathology aortic stent (2) spo2 96% on room air (3) wbc 12.8 no left shift Recent Travel: none PAST MEDICAL HISTORY: see hpi PAST SURGICAL HISTORY: see hpi Social History: resides at home Smoking:former Alcohol:none Drugs: none Family History: non contributory to this admission Allergies No Known Allergies Allergy (Verified 11/16/17 15:08) Verified HOME MEDICATIONS: Home Medications Medication Instructions Recorded Aspirin [ASA -] 81 mg PO DAILY 04/29/14 Escitalopram Oxalate [Lexapro -] 30 mg PO DAILY 04/29/14 Alprazolam [Xanax] 1 mg PO BID 11/19/14 Bupropion HCl [Wellbutrin Xl -] 300 mg PO DAILY 06/14/15 Risperidone 2 mg PO BID 11/24/15 Zolpidem Tartrate [Ambien] 10 mg PO HS 11/25/15 Lisinopril 10 mg PO DAILY 10/28/16 Fenofibrate Nanocrystallized 48 mg PO DAILY 10/29/16 [Tricor] Atorvastatin Ca [Lipitor] 10 mg PO HS tablet 10/30/16 Ezetimibe [Zetia -] 10 mg PO HS tablet 10/30/16 Clopidogrel Bisulfate [Plavix -] 75 mg PO DAILY 04/23/17 Albuterol Sulfate Inhaler - 2 inh PO Q4H PRN #1 inh 04/27/17 [Ventolin HFA Inhaler -] Budesonide/Formeterol Fumarate 2 puff IH BID #1 inhaler 04/27/17 [SYMBICORT 160/4.5mcg -] Pantoprazole Sodium [Protonix -] 40 mg PO DAILY #30 tablet.ec 07/21/17 Tiotropium [place] [Spiriva] 1 puff IH DAILY #1 inh 09/20/17 predniSONE [Deltasone -] 4 mg PO ASDIR 11/16/17 REVIEW OF SYSTEMS CONSTITUTIONAL: Absent: fever, chills, diaphoresis, generalized weakness, malaise, loss of appetite, weight change HEENT: Absent: rhinorrhea, nasal congestion, throat pain, throat swelling, difficulty swallowing, mouth swelling, ear pain, eye pain, visual changes CARDIOVASCULAR: Absent: chest pain, syncope, palpitations, irregular heart rate, lightheadedness , peripheral edema RESPIRATORY: present:cough, shortness of breath, Absent: dyspnea with exertion, orthopnea, wheezing, stridor, hemoptysis GASTROINTESTINAL: Absent: abdominal pain, abdominal distension, nausea, vomiting, diarrhea, constipation, melena, hematochezia GENITOURINARY: Absent: dysuria, frequency, urgency, hesitancy, hematuria, flank pain, genital pain MUSCULOSKELETAL: Absent: myalgia, arthralgia, joint swelling, back pain, neck pain SKIN: Absent: rash, itching, pallor HEMATOLOGIC/IMMUNOLOGIC: Absent: easy bleeding, easy bruising, lymphadenopathy, frequent infections ENDOCRINE: Absent: unexplained weight gain, unexplained weight loss, heat intolerance, cold intolerance NEUROLOGIC: Absent: headache, focal weakness or paresthesias, dizziness, unsteady gait, seizure, mental status changes, bladder or bowel incontinence PSYCHIATRIC: Absent: anxiety, depression, suicidal or homicidal ideation, hallucinations. PHYSICAL EXAMINATION Vital Signs - 24 hr 11/16/17 11/16/17 11/16/17 15:08 17:14 17:28 Temperature 97.5 F L Pulse Rate 107 H Pulse Rate [ 76 70 Apical] Respiratory 20 22 Rate Blood Pressure 114/61 Blood Pressure 132/78 [Right Arm] O2 Sat by Pulse 98 96 Oximetry (%) 11/16/17 11/16/17 11/16/17 17:41 18:20 19:12 Temperature 98.0 F 98 F Pulse Rate 65 75 Pulse Rate [ 62 Apical] Respiratory 19 22 17 Rate Blood Pressure 127/69 126/73 Blood Pressure 115/71 [Right Arm] O2 Sat by Pulse 95 96 Oximetry (%) 11/16/17 11/16/17 11/17/17 19:13 22:01 06:00 Temperature 98.0 F 98.8 F Pulse Rate 65 52 L Pulse Rate [ Apical] Respiratory 19 18 Rate Blood Pressure 127/69 138/70 Blood Pressure [Right Arm] O2 Sat by Pulse 98 95 Oximetry (%) 11/17/17 11/17/17 06:16 10:00 Temperature 97.4 F L Pulse Rate 53 L Pulse Rate [ Apical] Respiratory 19 Rate Blood Pressure 131/66 Blood Pressure [Right Arm] O2 Sat by Pulse 95 96 Oximetry (%) GENERAL: Awake, alert, and fully oriented, in no acute distress. HEAD: Normal with no signs of trauma. EYES: Pupils equal, round and reactive to light, extraocular movements intact, sclera anicteric, conjunctiva clear. No lid lag. EARS, NOSE, THROAT: Ears normal, nares patent, oropharynx clear without exudates. Moist mucous membranes. NECK: Normal range of motion, supple without lymphadenopathy, JVD, or masses. LUNGS: Breath sounds equal, mild inspiratory wheeze to bases, diminished to bases, and no crackles. No accessory muscle use. HEART: Regular rate and rhythm, normal S1 and S2 without murmur, rub or gallop. ABDOMEN: Soft, nontender, not distended, normoactive bowel sounds, no guarding, no rebound, no masses. No hepatomegaly or splenomegaly. MUSCULOSKELETAL: Normal range of motion at all joints. No bony deformities or tenderness. No CVA tenderness. UPPER EXTREMITIES: 2+ pulses, warm, well-perfused. No cyanosis. No clubbing. No peripheral edema. LOWER EXTREMITIES: 2+ pulses, warm, well-perfused. No calf tenderness. No peripheral edema. NEUROLOGICAL: tardive dysknesia, Cranial nerves II-XII intact. Normal speech. Normal gait. PSYCHIATRIC: Cooperative. Good eye contact. Appropriate mood and affect. SKIN: Warm, dry, normal turgor, no rashes or lesions noted, normal capillary refill. Laboratory Results - last 24 hr 11/16/17 11/16/17 11/16/17 15:53 15:53 15:53 WBC 12.8 H RBC 3.97 L Hgb 12.6 Hct 36.8 MCV 92.6 MCH 31.7 MCHC 34.3 RDW 13.6 Plt Count 318 MPV 7.2 L Absolute Neuts (auto) 9.7 Neutrophils % 75.3 Lymphocytes % 15.6 Monocytes % 7.8 Eosinophils % 1.1 Basophils % 0.2 Sodium 131 L Potassium 3.2 L D Chloride 99 Carbon Dioxide 26 Anion Gap 6 L BUN 22 H Creatinine 1.4 H Creat Clearance w eGFR 49.68 Random Glucose 111 H D Calcium 8.7 Total Bilirubin < 0.3 AST 20 D ALT 18 D Alkaline Phosphatase 65 Troponin I < 0.03 B-Natriuretic Peptide Total Protein 5.7 L Albumin 3.3 L 11/16/17 11/17/17 11/17/17 15:57 07:40 07:40 WBC 10.4 RBC 4.06 Hgb 13.0 Hct 37.6 MCV 92.7 MCH 32.0 MCHC 34.5 RDW 13.6 Plt Count 310 MPV 6.7 L Absolute Neuts (auto) Neutrophils % Lymphocytes % Monocytes % Eosinophils % Basophils % Sodium 138 Potassium 4.3 D Chloride 104 Carbon Dioxide 28 Anion Gap 6 L BUN 20 H Creatinine 1.2 Creat Clearance w eGFR 59.35 Random Glucose 104 Calcium 9.2 Total Bilirubin 0.2 AST 15 D ALT 18 Alkaline Phosphatase 64 Troponin I B-Natriuretic Peptide 364.53 H Total Protein 5.9 L Albumin 3.3 L ASSESSMENT/PLAN: 1) pulm - slight wheeze noted on exam, start short taper of solumedrol - continue symbicrot and spirva - peak flow, incentive spirometer - pending chest ct -keep spo2 above 92% with supplemental O2 as needed 2) cardiovascular hypertension -continue lisinopril hyperlipidemia - continue lipitor and tricor s/p aortic stent - continue plavix f/e/n - regular diet - hypokalemia resolved after potassium supplementation ppx - oob - less than 2mn admission - protonix dispo: pt requires obsv admission Visit type - Emergency Visit Emergency Visit: Yes ED Registration Date: 11/16/17 Care time: The patient presented to the Emergency Department on the above date and was hospitalized for further evaluation of their emergent condition. - New Patient This patient is new to me today: Yes Date on this admission: 11/20/17 - Critical Care Critical Care patient: No Hospitalist Screening - Colonoscopy Questionnaire Colonoscopy Questionnaire: Colonoscopy Questionnaire - Patient: 50 - 75 years old and never had a screening colonoscopy: No History of colon or rectal polyps, or CA: No History of IBD, Crohn's disease or UC: No History of abdominal radiation therapy as a child: No - Relative: 1 with colon or rectal CA, or polyps at age 60 or younger: No Colon or rectal CA diagnosed at age 45 or younger: No Multiple relatives with colon or rectal CA: No - Outcome: Screening Result: Negative Screen
--- NOTE | 2017-11-17 12:00 | PN ---
Progress Note (short form) - Note Progress Note: PULMONARY CONSULTATION DICTATED 11/18/15 IMP DYSPNEA COPD EXACERBATION ASHD S/P STENT H/O PULMOARY NODULES PLAN STEROIDS INALED BRONCHODILATORS O2 DVT PROPHYLAXIS CHEST CT DR PHILLIP Problem List - Problems (1) Pulmonary nodule Code(s): R91.1 - SOLITARY PULMONARY NODULE (2) COPD exacerbation Code(s): J44.1 - CHRONIC OBSTRUCTIVE PULMONARY DISEASE W (ACUTE) EXACERBATION (3) ASHD (arteriosclerotic heart disease) Code(s): I25.10 - ATHSCL HEART DISEASE OF [place] CORONARY ARTERY W/O ANG PCTRS (4) CAD (coronary artery disease) Code(s): I25.10 - ATHSCL HEART DISEASE OF [place] CORONARY ARTERY W/O ANG PCTRS (5) S/P AAA repair Code(s): Z98.890 - OTHER SPECIFIED POSTPROCEDURAL STATES; Z86.79 - PERSONAL HISTORY OF OTHER DISEASES OF THE CIRCULATORY SYSTEM (6) COPD exacerbation Code(s): J44.1 - CHRONIC OBSTRUCTIVE PULMONARY DISEASE W (ACUTE) EXACERBATION
--- NOTE | 2017-11-17 12:29 | CONS ---
DATE OF CONSULTATION: 11/17/2017 REFERRING PHYSICIAN: Nidia Duran NP HISTORY OF PRESENT ILLNESS: The patient is a 72-year-old white male known to me from previous hospitalization, past medical history of COPD, ASHD, status post stent approximately 10 years ago, status post AAA endovascular repair in January 2017, status post small leak on his repair, status post repair on April 14, hypertension, anxiety, depression, longstanding history of tobacco use, quit approximately 11- 1/2 years ago, admitted to [facility] [place] with complaint of a 4- to 5-day history of increasing shortness of breath, dyspnea on exertion, nonproductive cough. Patient states since the weather has been hot and humid he started developing increasing shortness of breath. On the day of admission he started developing severe dyspnea at which time he presented to the emergency room. In the ER he was treated with inhaled bronchodilators and transferred up to the medical floor for further management. Patient denied any pain, chest pain, nausea, vomiting, diaphoresis. Denied any fevers or chills. He denies any history of occupational exposure to chemicals or fumes. There is no history of recent travel. PAST MEDICAL HISTORY: Again includes ASHD, status post stent, COPD, hypertension, anxiety, depression, AAA, status post endovascular repair, status post repair of leak. REVIEW OF SYSTEMS: Positive dyspnea. No orthopnea. No chest pain. No palpitations. Positive cough. No significant bronchospasm. No abdominal pain. CURRENT MEDICATIONS: Include Symbicort; prednisone 40; Prinivil; Wellbutrin; Lexapro; Spiriva; Risperdal; Ambien; Xanax; albuterol; Zetia; Lipitor; aspirin; Plavix and Protonix. PHYSICAL EXAMINATION:General: The patient is an elderly white male, wide awake, alert, mildly dyspneic but in no acute distress. Vital Signs: He is currently afebrile, blood pressure is 131/66, respiratory rate is 19, O2 saturation is 96% on room air. HEENT: Normocephalic, atraumatic. Neck: Supple. Heart: Regular with S1, S2. Chest: Clear. Abdomen: Soft. Bowel sounds are positive. Extremities: No cyanosis or edema. LABORATORIES: WBC is 10.4, hemoglobin 13, hematocrit 37.6 with a platelet count of 310,000. BUN 20, creatinine 1.2. Chest x-ray reveals no acute infiltrates or effusion. IMPRESSION: 1. Dyspnea secondary to chronic obstructive pulmonary disease exacerbation, most likely due to adverse climate conditions. 2. Arteriosclerotic heart disease, status post stent. 3. History of abdominal aortic aneurysm, status post repair. PLAN: Steroids. Inhaled bronchodilators. Supplemental O2. Consider pulmonary rehab post discharge. Thank you. ELYSE PHILLIP M.D. [id number] MTDD
[2017-11-17] MEDS: methylPREDNISolone NA SUCC 40 MG/1 ML VIAL IVPUSH SCH ×2 (13:44→18:20)
[2017-11-17] MEDS: EZETIMIBE 10 MG TABLET (FP) PO SCH (21:10)
[2017-11-17] MEDS: ATORVASTATIN CA 10 MG TABLET (FP) PO SCH (21:12)
[2017-11-18] MEDS: methylPREDNISolone NA SUCC 40 MG/1 ML VIAL IVPUSH SCH (01:27)
[2017-11-18] MEDS: ZOLPIDEM TARTRATE 5 MG TABLET PO PRN (02:32)
--- NOTE | 2017-11-18 08:13 | PN ---
Progress Note (short form) - Note Progress Note: states breathing has improved. continues to have cough but is at his baseline. denies Cp, SOB, fever, chills, N/V/C/D, states he has not ambulated the halls since arrival Current Medications Generic Name Dose Route Start Last Admin Trade Name Freq PRN Reason Stop Dose Admin Albuterol Sulfate 1 amp 11/16/17 19:13 Ventolin 0.083% Nebulizer Soln - NEB Q4H PRN SHORT OF BREATH/WHEEZING Alprazolam 1 mg 11/16/17 22:00 11/17/17 21:10 Xanax - PO 1 mg BID FIDEL Administration Aspirin 81 mg 11/17/17 10:00 11/17/17 09:23 Asa - PO 81 mg DAILY FIDEL Administration Atorvastatin Calcium 10 mg 11/16/17 22:00 11/17/17 21:12 Lipitor - PO 10 mg HS IFDEL Administration Budesonide/Formoterol Fumarate 2 puff 11/16/17 22:00 11/17/17 22:23 Symbicort 160/4.5mcg - IH 2 puff BID FIDEL Administration Bupropion HCl 300 mg 11/17/17 10:00 11/17/17 09:23 Wellbutrin Xl - PO 300 mg DAILY FIDEL Administration Clopidogrel Bisulfate 75 mg 11/17/17 10:00 11/17/17 09:25 Plavix - PO 75 mg DAILY FIDEL Administration Ezetimibe 10 mg 11/16/17 22:00 11/17/17 21:10 Zetia - PO 10 mg HS FIDEL Administration Escitalopram Oxalate 20 mg 11/17/17 10:00 11/17/17 09:23 Lexapro - PO 20 mg DAILY FIDEL Administration Fenofibric Acid 45 mg 11/17/17 10:00 11/17/17 09:22 Trilipix - PO 45 mg DAILY FIDEL Administration Lisinopril 10 mg 11/17/17 10:00 11/17/17 09:23 Prinivil PO 10 mg DAILY FIDEL Administration Methylprednisolone Sodium Succinate 40 mg 11/17/17 12:45 11/18/17 01:27 Solu-Medrol - IVPUSH 40 mg Q8H-IV FIDEL Administration Pantoprazole Sodium 40 mg 11/17/17 10:00 11/17/17 09:25 Protonix - PO 40 mg DAILY FIDEL Administration Risperidone 2 mg 11/16/17 22:00 11/17/17 21:12 Risperdal - PO 2 mg BID FIDEL Administration Tiotropium [place] 1 puff 11/17/17 10:00 11/17/17 09:26 Spiriva - IH 1 cap DAILY FIDEL Administration Zolpidem Tartrate 5 mg 11/16/17 22:00 11/18/17 02:32 Ambien - PO 5 mg HS PRN Administration INSOMNIA Last Vital Signs Temp Pulse Resp BP Pulse Ox 98.2 F 59 L 19 152/75 97 11/18/17 06:00 11/18/17 06:00 11/18/17 06:00 11/18/17 06:00 11/18/17 06:39 General NAD, HEENT repetitive tongue thrust CV S1 S2 RRR no murmur/rub/gallop Lungs CTA B/L no wheezing/rales/rhonchi Abdomen soft NT/ND Extremities no pedal edema assessment and plan 72yo M with PMH COPD, CAD, AAA s/p stent and anxiety presented to the ER with SOB and found to have acute COPD exacerbation 1. Acute COPD exacerbation- clinically improved. CT chest reviewed and no infiltrate or consolidation appreciated. will decrease solumedrol to BID dosing. can likely transition to po in the AM. encouraged OOB and ambulate. nebs prn. pulmonary on board 2. Hypokalemia- resolved 3. hyponatremia-resolved 4. SUDARSHAN- resolved. 5. CAD- asa/plavix 6. AAA s/p stent- size is stable per CT report 7. DVT ppx- hep sq 8. d/c planning tomorrow if continues to improve. verbalized understanding and agreement with plan Visit type - Emergency Visit Emergency Visit: Yes ED Registration Date: 11/16/17 Care time: The patient presented to the Emergency Department on the above date and was hospitalized for further evaluation of their emergent condition. - New Patient This patient is new to me today: Yes Date on this admission: 11/18/17 - Critical Care Critical Care patient: No - Discharge Referral Referred to [facility] Med P.C.: No
[2017-11-18] MEDS ORDERED: PT OWN MED DRAWER 7, Y5N ONE (09:40)
[2017-11-18] MEDS: BUDESONIDE/FORMETEROL FUMARATE 160/4.5 mcg INHALER IH SCH (10:00)
[2017-11-18] MEDS ORDERED: methylPREDNISolone NA SUCC 40 MG/1 ML VIAL IVPUSH SCH (10:00)
[2017-11-18] MEDS: TIOTROPIUM BROMIDE 18 MCG CAPSULES IH SCH (10:00)
[2017-11-18] MEDS ORDERED: HEPARIN NA (PORCINE) 5,000 UNITS/ML 1ML VIAL SQ SCH (10:00)
[2017-11-18] MEDS: ALPRAZolam 0.25 MG TABLET PO SCH (10:01)
[2017-11-18] MEDS: CLOPIDOGREL BISULFATE 75 MG TABLET (FP) PO SCH (10:01)
[2017-11-18] MEDS: ESCITALOPRAM OXALATE 20 MG TABLET (FP) PO SCH (10:01)
[2017-11-18] MEDS: risperiDONE 1 MG TABLET (FP) PO SCH (10:01)
[2017-11-18] MEDS: ASPIRIN 81 MG CHEWABLE TABLETS PO SCH (10:01)
[2017-11-18] MEDS: PANTOPRAZOLE 40 MG TABLET (FP) PO SCH (10:02)
[2017-11-18] MEDS: LISINOPRIL 10 MG TABLET (FP) PO SCH (10:02)
[2017-11-18] MEDS: FENOFIBRIC ACID 45 MG CAP PO SCH (10:02)
[2017-11-18 14:24] VITALS: BP 124/57; PULSE 56; TEMP 97.9
== END 2017-11-18 18:15 | disposition left against medical advice (07) ==
LOC: FER 15:07 → INTOOBSV 17:41 → FM/S 17:41
PROVIDERS: ADMIT Hospitalist; ATTEND Nurse Practitioner Family
PROC: 3E0333Z Introduction of Anti-inflammatory into Peripheral Vein, Percutaneous Approach (ICD-10-PCS; principal; 2017-11-16)
PROC: 3E013GC Introduction of Other Therapeutic Substance into Subcutaneous Tissue, Percutaneous Approach (ICD-10-PCS; 2017-11-16)
PROC: 3E0F7GC Introduction of Other Therapeutic Substance into Respiratory Tract, Via Natural or Artificial Opening (ICD-10-PCS; 2017-11-16)
DX: J44.1 Chronic obstructive pulmonary disease with (acute) exacerbation (principal); I10 Essential (primary) hypertension; I25.10 Atherosclerotic heart disease of native coronary artery without angina pectoris; R05 Cough; I25.2 Old myocardial infarction; E78.5 Hyperlipidemia, unspecified; Z79.82 Long term (current) use of aspirin; Z95.5 Presence of coronary angioplasty implant and graft; Z87.891 Personal history of nicotine dependence; R91.1 Solitary pulmonary nodule; Z98.890 Other specified postprocedural states; E87.6 Hypokalemia; E87.1 Hypo-osmolality and hyponatremia
CPT/HCPCS: 36415; 71046-TC-FY; 71250-TC; 80053; 83880; 84484; 85025; 85027; 93005; 94640; 96372; 96374; 96376; 99284-25; G0378; J1644; J2794; J7620

== ENCOUNTER 2017-11-29 18:00 | Observation (INO) | payer OTHER, BC ==
[2017-11-29 18:36] VITALS: BMI 27.7
--- NOTE | 2017-11-29 18:37 | PDOC ---
Attending Attestation - Resident Resident Name: Kody Calvert - ED Attending Attestation I have performed the following: I have examined & evaluated the patient, The case was reviewed & discussed with the resident, I agree w/resident's findings & plan, Exceptions are as noted - HPI HPI: 11/29/17 18:37 Mr. Ann is a 72 yo M h/o HTN, CAD s/p [place] 11 years ago, PCI, AAA repair with stent placement 01/2017, anxiety and depression, tardive dyskinesia, and COPD who presented to the ER with a complaint of shortness of breath, lower back pain , chest pain Chest pain has been present for ? 2 days Back pain is chronic complaint (+) shortness of breath - dyspnea on exertion - Physicial Exam PE: 11/29/17 18:39 GENERAL: Awake, alert, and fully oriented, in no acute distress. Tardive dyskinesia. HEAD: Normal LUNGS: Breath sounds distant. No wheezes, and no crackles. No accessory muscle use. HEART: Regular rate and rhythm, normal S1 and S2 without murmur, rub or gallop. ABDOMEN: Soft, nontender MUSCULOSKELETAL: Normal range of motion at all joints. NEUROLOGICAL: Cranial nerves II-XII intact. Normal speech. SKIN: Erythema over dorsum of right hand - Medical Decision Making 11/29/17 18:41 72 yo M presenting with chronic complaints - chest pain, back pain, shortness of breath PT will appearing 11/29/17 18:44 Selected Entries 11/29/17 18:00 Temperature 97.7 F Pulse Rate 64 Respiratory 20 Rate Blood Pressure 130/68 O2 Sat by Pulse 97 Oximetry (%) Labs sent CXR pending EKG pending
--- NOTE | 2017-11-29 18:52 | PDOC ---
History of Present Illness - General Chief Complaint: Back Pain Stated Complaint: BACK PAIN Time Seen by Provider: 11/29/17 18:12 History Source: Patient Exam Limitations: No Limitations - History of Present Illness Initial Comments: 11/29/17 18:41 The patient is a 72M with a PMH of COPD, Hypertension, CAD s/p cardiac stent x1 who presents to the ER with multiple complaints. The patient states that he feels short of breath and that has been going on for "15 years", unchanged over any acute period of time. He also complaints of chronic back pain which is atraumatic and he "wears a brace for". He denies saddle anesthesia, other numbness, tingling, or weakness, fevers, IVDA. He also complains of L sided CP which is pressure-like, nonradiating, atraumatic, and nonpleuritic. He denies fever, chills, nausea, vomiting, abdominal pain. Past History - Past Medical History Allergies/Adverse Reactions: Allergies Allergy/AdvReac Type Severity Reaction Status Date / Time No Known Allergies Allergy Verified 12/03/17 17:37 Home Medications: Ambulatory Orders Aspirin [ASA -] 81 mg PO DAILY 04/29/14 Escitalopram Oxalate [Lexapro -] 30 mg PO DAILY 04/29/14 Alprazolam [Xanax] 1 mg PO BID 11/19/14 Bupropion HCl [Wellbutrin Xl -] 300 mg PO DAILY 06/14/15 Risperidone 2 mg PO BID 11/24/15 Zolpidem Tartrate [Ambien] 10 mg PO HS 11/25/15 Lisinopril 10 mg PO DAILY 10/28/16 Atorvastatin Ca [Lipitor] 10 mg PO HS tablet 10/30/16 Ezetimibe [Zetia -] 10 mg PO HS tablet 10/30/16 Clopidogrel Bisulfate [Plavix -] 75 mg PO DAILY 04/23/17 Albuterol Sulfate Inhaler - [Ventolin HFA Inhaler -] 2 inh PO Q4H PRN #1 inh Budesonide/Formeterol Fumarate [SYMBICORT 160/4.5mcg -] 2 puff IH BID #1 inhaler 04/27/17 Pantoprazole Sodium [Protonix -] 40 mg PO DAILY #30 tablet.ec 07/21/17 Tiotropium [place] [Spiriva] 1 puff IH DAILY #1 inh 09/20/17 predniSONE [Deltasone -] 4 mg PO ASDIR 11/16/17 Anemia: No Asthma: No Cancer: No Cardiac Disorders: Yes (cardiac [id number], history of [place] 2005) CVA: No COPD: Yes CHF: No DVT: No Dementia: (FORGETFUL) Diabetes: No GI Disorders: Yes (HEARTBURN) Disorders: No HTN: Yes Hypercholesterolemia: Yes Liver Disease: No Psychiatric Problems: Yes Seizures: No Thyroid Disease: No - Surgical History Abdominal Surgery: Yes (AAA 02/03/2017) Appendectomy: No Cardiac Surgery: Yes (cardiac stent 2005 & 04/2017) Cholecystectomy: No Lung Surgery: No Neurologic Surgery: No Orthopedic Surgery: No - Suicide/Smoking/Psychosocial Hx Smoking Status: No Smoking History: Former smoker Have you smoked in the past 12 months: No Number of Cigarettes Smoked Daily: 0 If you are a former smoker, when did you quit?: 2005 Information on smoking cessation initiated: No Hx Alcohol Use: No Drug/Substance Use Hx: No Substance Use Type: Alcohol Hx Substance Use Treatment: Yes (patient states he quit alcohol 6 months) Review of Systems - Review of Systems Able to Perform ROS?: Yes Comments:: 11/29/17 18:55 GENERAL/CONSTITUTIONAL: No fever or chills. No weakness. HEAD, EYES, EARS, NOSE AND THROAT: No change in vision. No ear pain or discharge. No sore throat. CARDIOVASCULAR: Positive for chest pain. No palpitations or lightheadedness. RESPIRATORY: Positive for shortness of breath. No cough, wheezing, or hemoptysis. GASTROINTESTINAL: No nausea, vomiting, diarrhea, constipation, or abdominal pain. GENITOURINARY: No dysuria, frequency, hematuria, or change in urination. MUSCULOSKELETAL: Positive for back pain. No joint or muscle swelling or pain. No neck pain. SKIN: No rash or lesions. NEUROLOGIC: No headache, numbness, tingling, weakness, loss of consciousness, or change in strength/sensation. ENDOCRINE: No increased thirst. No abnormal weight change. HEMATOLOGIC/LYMPHATIC: No anemia, easy bleeding, or history of blood clots. ALLERGIC/IMMUNOLOGIC: No hives or skin allergy. Is the patient limited [place]ish proficient: No *Physical Exam - Vital Signs Last Vital Signs Temp Pulse Resp BP Pulse Ox 97.7 F 64 20 130/68 97 11/29/17 18:00 11/29/17 18:00 11/29/17 18:00 11/29/17 18:00 11/29/17 18:00 - Physical Exam Comments: 11/29/17 18:56 GENERAL: Well developed, well nourished. Awake and alert. No acute distress. HEENT: Normocephalic, atraumatic. Hearing grossly normal. Moist mucous membranes. PERRLA, EOMI. No conjunctival pallor. Sclera are non-icteric. NECK: Supple. Full ROM. No JVD. Carotid pulses 2+ and symmetric, without bruits. No thyromegaly. No lymphadenopathy. CARDIOVASCULAR: Regular rate and rhythm. No murmurs, rubs, or gallops. PULMONARY: No evidence of respiratory distress. Lungs clear to auscultation bilaterally. No wheezing, rales or rhonchi. ABDOMINAL: Soft. Non-tender. Non-distended. No rebound or guarding. GENITOURINARY: No CVA tenderness bilaterally. MUSCULOSKELETAL: Normal range of motion at all joints. No bony deformities or tenderness. EXTREMITIES: No cyanosis. No clubbing. No edema. No calf tenderness or swelling. SKIN: Warm and dry. Normal capillary refill. No rashes. No jaundice. NEUROLOGICAL: Alert, awake, appropriate. Cranial nerves 2-12 intact. Normal speech. Gait is normal without ataxia. PSYCHIATRIC: Cooperative. Good eye contact. Appropriate mood and affect. ED Treatment Course - LABORATORY CBC & Chemistry Diagram: 11/30/17 07:00 11/30/17 07:00 - RADIOLOGY Radiology Studies Ordered: Category Date Time Status CHEST PA & LAT [RAD] Stat Radiology 11/29/17 18:33 Ordered Medical Decision Making - Medical Decision Making 11/29/17 18:57 The patient is a 72M, well known to the ER, with a PMH of HTN, COPD, and CAD who presents with SOB and CP. Will r/o ACS with EKG and troponin. Pending labs, EKG, and CXR. Pt signed out to night team. *DC/Admit/Observation/Transfer Diagnosis at time of Disposition: Hyponatremia - Discharge Dispostion Disposition: HOME Condition at time of disposition: Improved - Referrals - Patient Instructions - Post Discharge Activity
[2017-11-29 19:52] LABS: BASO % 0.2 % (0-2.0); EOS % 0.6 % (0-4.5); HEMATOCRIT 33.8 % (35.4-49); HEMOGLOBIN 11.9 GM/dl (11.7-16.9); LYMPH % 12.1 % (8-40); MCH 32.5 pg (25.7-33.7); MCHC 35.2 g/dl (32.0-35.9); MEAN CELL VOLUME 92.2 fl (80-96); MEAN PLT VOLUME 7.4 fl (7.5-11.1); MONO % 7.5 % (3.8-10.2); NEUT % 79.6 % (42.8-82.8); PLATELET COUNT 256 K/MM3 (134-434); RBC 3.67 M/mm3 (4.00-5.60); RDW 13.3 % (11.9-15.9); WHITE BLOOD COUNT 11.1 K/mm3 (4.0-10.8)
--- NOTE | 2017-11-29 20:21 | PDOC ---
*Physical Exam - Vital Signs Last Vital Signs Temp Pulse Resp BP Pulse Ox 97.7 F 64 20 130/68 97 11/29/17 18:00 11/29/17 18:00 11/29/17 18:00 11/29/17 18:00 11/29/17 18:00 ED Treatment Course - LABORATORY CBC & Chemistry Diagram: 11/29/17 18:51 11/29/17 19:29 - ADDITIONAL ORDERS Additional order review: 11/29/17 18:51 RBC 3.67 L MCV 92.2 MCHC 35.2 RDW 13.3 MPV 7.4 L D Neutrophils % 79.6 Lymphocytes % 12.1 D Monocytes % 7.5 Eosinophils % 0.6 Basophils % 0.2 Progress Note - Progress Note Progress Note: This is a 72-year-old male whose care was transferred [place] from Dr. Ames at 1900 hrs. Patient has history significant for COPD for which she was admitted on November 16 also possible associated bronchitis. Patient was discharged 2 days later and now returns complaining of shortness of breath and back pain. Patient has a workup pending including CBC, chemistries, EKG and chest x-ray. 20:30 Chest x-ray shows no acute infiltrate and is unchanged from his November 16 admission Patient on exam has no wheezing or decreased breath sounds in his O2 sat is 97% which is improved from when he was here before. Patient's EKG: Shows sinus bradycardia at a rate of 52, there is left axis deviation there is an old inferior OH there is no acute ST-T wave changes. EKG is not significantly changed from prior EKG. Patient's CBC shows white count of 11.1. At time of his discharge it was 10.4. Patient's chemistries are remarkable for sodium of 129. Patient also has some azotemia which is chronic for him, Patient's troponin is not measurable Patient's BNP was 168 which is improved from when he was here a few days ago when it was 324. Patient will be placed in observation for hyponatremia *DC/Admit/Observation/Transfer Diagnosis at time of Disposition: Hyponatremia - Discharge Dispostion Decision to Admit order: Yes - Referrals - Patient Instructions - Post Discharge Activity
[2017-11-29 21:38] LABS: ALBUMIN 3.2 g/dl (3.5-5.0); ALK PHOS 52 U/L (32-92); ANION GAP 10 (8-16); BLOOD UREA NITROGEN 35 mg/dl (7-18); CALCIUM 8.6 mg/dl (8.4-10.2); CHLORIDE 99 mmol/L (98-107); CO2 20 mmol/L (22-28); CREATININE 1.3 mg/dl (0.6-1.3); GLUCOSE,RANDOM 105 mg/dl (74-106); SGOT/AST 16 U/L (10-42); SGPT/ALT 16 U/L (10-40); SODIUM 129 mmol/L (136-145); TOT PROT 5.4 g/dl (6.4-8.3)
[2017-11-29 21:40] LABS: BILIRUBIN,TOTAL < 0.3 mg/dl (0.2-1.0)
[2017-11-29] MEDS ORDERED: SODIUM CHLORIDE 1,000 ML IV SCH (22:00)
[2017-11-29 22:15] LABS: URINE APPEARANCE Clear; URINE BILIRUBIN Negative (NEGATIVE); URINE COLOR Yellow; URINE GLUCOSE (UA) Negative (NEGATIVE); URINE KETONE Negative (NEGATIVE); URINE LEUK ESTERASE Negative (NEGATIVE); URINE NITRITE Negative (NEGATIVE); URINE PROTEIN Negative (NEGATIVE); URINE UROBILINOGEN 0.2 (0.2-1.0)
--- NOTE | 2017-11-29 23:04 | HP ---
Admitting History and Physical - Primary Care Physician PCP: Rita Merrill - Admission History of Present Illness: Mr. Ann is a 72 yo M h/o HTN, CAD s/p [place] 11 years ago, PCI, AAA repair with stent placement 01/2017, anxiety and depression, tardive dyskinesia, and COPD who presented to the ER with a complaint of shortness of breath, lower back pain , chest pain Chest pain has been present for ? 2 days Back pain is chronic complaint (+) shortness of breath - dyspnea on exertion - Past Medical History Cardiovascular: Yes: CAD, HTN, Hyperlipdemia, [place] Pulmonary: Yes: COPD Gastrointestinal: Yes: Other (umbilical hernia) Heme/Onc: Yes: Anemia Psych: Yes: Anxiety, Depression - Past Surgical History Past Surgical History: Yes: None, Stent - Smoking History Smoking history: Former smoker Have you smoked in the past 12 months: No Aproximately how many cigarettes per day: 0 If you are a former smoker, when did you quit?: 2005 - Alcohol/Substance Use Hx Alcohol Use: No History of Substance Use: reports: None - Social History ADL: Independent 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 History of Recent Travel: No Home Medications - Allergies Allergies/Adverse Reactions: Allergies Allergy/AdvReac Type Severity Reaction Status Date / Time No Known Allergies Allergy Verified 11/29/17 18:03 - Home Medications Home Medications: Ambulatory Orders Aspirin [ASA -] 81 mg PO DAILY 04/29/14 Escitalopram Oxalate [Lexapro -] 30 mg PO DAILY 04/29/14 Alprazolam [Xanax] 1 mg PO BID 11/19/14 Bupropion HCl [Wellbutrin Xl -] 300 mg PO DAILY 06/14/15 Risperidone 2 mg PO BID 11/24/15 Zolpidem Tartrate [Ambien] 10 mg PO HS 11/25/15 Lisinopril 10 mg PO DAILY 10/28/16 Atorvastatin Ca [Lipitor] 10 mg PO HS tablet 10/30/16 Ezetimibe [Zetia -] 10 mg PO HS tablet 10/30/16 Clopidogrel Bisulfate [Plavix -] 75 mg PO DAILY 04/23/17 Albuterol Sulfate Inhaler - [Ventolin HFA Inhaler -] 2 inh PO Q4H PRN #1 inh Budesonide/Formeterol Fumarate [SYMBICORT 160/4.5mcg -] 2 puff IH BID #1 inhaler 04/27/17 Pantoprazole Sodium [Protonix -] 40 mg PO DAILY #30 tablet.ec 07/21/17 Tiotropium [place] [Spiriva] 1 puff IH DAILY #1 inh 09/20/17 predniSONE [Deltasone -] 4 mg PO ASDIR 11/16/17 Physical Examination Vital Signs: Vital Signs Temperature 97.7 F 11/29/17 18:00 Pulse Rate 64 11/29/17 18:00 Respiratory Rate 20 11/29/17 18:00 Blood Pressure 130/68 11/29/17 18:00 O2 Sat by Pulse Oximetry (%) 97 11/29/17 18:00 Constitutional: Yes: No Distress HENT: Yes: Atraumatic Neck: Yes: Supple Cardiovascular: Yes: Regular Rate and Rhythm Respiratory: Yes: CTA Bilaterally Gastrointestinal: Yes: Normal Bowel Sounds Extremities: Yes: WNL Edema: No Neurological: Yes: Alert, Oriented Labs: CBC, BMP 11/29/17 18:51 11/29/17 19:29 Problem List - Problems (1) Chest pain Assessment/Plan: TELE MONITOR FU CARDIAC ENZYMES continue home meds Code(s): R07.9 - CHEST PAIN, UNSPECIFIED (2) Hyponatremia Assessment/Plan: slow replacement Code(s): E87.1 - HYPO-OSMOLALITY AND HYPONATREMIA (3) CAD (coronary artery disease) Code(s): I25.10 - ATHSCL HEART DISEASE OF [place] CORONARY ARTERY W/O ANG PCTRS (4) COPD (chronic obstructive pulmonary disease) Code(s): J44.9 - CHRONIC OBSTRUCTIVE PULMONARY DISEASE, UNSPECIFIED (5) Hypertension Code(s): I10 - ESSENTIAL (PRIMARY) HYPERTENSION Assessment/Plan Laboratory Tests 11/29/17 11/29/17 11/29/17 18:51 19:29 19:29 WBC 11.1 H RBC 3.67 L Hgb 11.9 Hct 33.8 L MCV 92.2 MCH 32.5 MCHC 35.2 RDW 13.3 Plt Count 256 MPV 7.4 L D Absolute Neuts (auto) 8.9 Neutrophils % 79.6 Lymphocytes % 12.1 D Monocytes % 7.5 Eosinophils % 0.6 Basophils % 0.2 Sodium 129 L Potassium 4.0 Chloride 99 Carbon Dioxide 20 L D Anion Gap 10 BUN 35 H Creatinine 1.3 Creat Clearance w eGFR 54.11 Random Glucose 105 Calcium 8.6 Total Bilirubin < 0.3 AST 16 ALT 16 Alkaline Phosphatase 52 D Troponin I < 0.03 B-Natriuretic Peptide Total Protein 5.4 L Albumin 3.2 L Urine Color Urine Appearance Urine pH Ur Specific [place] Urine Protein Urine Glucose (UA) Urine Ketones Urine Blood Urine Nitrite Urine Bilirubin Urine Urobilinogen Ur Leukocyte Esterase 11/29/17 11/29/17 19:29 21:59 WBC RBC Hgb Hct MCV MCH MCHC RDW Plt Count MPV Absolute Neuts (auto) Neutrophils % Lymphocytes % Monocytes % Eosinophils % Basophils % Sodium Potassium Chloride Carbon Dioxide Anion Gap BUN Creatinine Creat Clearance w eGFR Random Glucose Calcium Total Bilirubin AST ALT Alkaline Phosphatase Troponin I B-Natriuretic Peptide 168.34 H Total Protein Albumin Urine Color Yellow Urine Appearance Clear Urine pH 5.0 Ur Specific [place] <= 1.005 Urine Protein Negative Urine Glucose (UA) Negative Urine Ketones Negative Urine Blood Negative Urine Nitrite Negative Urine Bilirubin Negative Urine Urobilinogen 0.2 Ur Leukocyte Esterase Negative Active Medications Generic Name Dose Route Start Last Admin Trade Name Freq PRN Reason Stop Dose Admin Aspirin 81 mg 11/30/17 10:00 Asa - PO DAILY [facility] Atorvastatin Calcium 10 mg 11/30/17 22:00 Lipitor - PO HS [facility] Budesonide/Formoterol Fumarate 2 puff 11/30/17 10:00 Symbicort 160/4.5mcg - IH BID FIDEL Bupropion HCl 300 mg 11/30/17 10:00 Wellbutrin Xl - PO DAILY FIDEL Clopidogrel Bisulfate 75 mg 11/30/17 10:00 Plavix - PO DAILY FIDEL Ezetimibe 10 mg 11/30/17 22:00 Zetia - PO HS FIDEL Sodium Chloride 1,000 mls @ 150 mls/hr 11/29/17 22:00 11/29/17 22:03 Normal Saline - IV 150 mls/hr ASDIR FIDEL Administration Lisinopril 10 mg 11/30/17 10:00 Prinivil PO DAILY FIDEL Non-Formulary Medication 1 mg 11/30/17 10:00 Alprazolam [Xanax] PO BID FIDEL Non-Formulary Medication 10 mg 11/30/17 22:00 Zolpidem Tartrate [Ambien] PO HS FIDEL Pantoprazole Sodium 40 mg 11/30/17 10:00 Protonix - PO DAILY FIDEL Risperidone 2 mg 11/30/17 10:00 Risperdal - PO BID FIDEL Tiotropium [place] 1 puff 11/30/17 10:00 Spiriva - IH DAILY FIDEL
[2017-11-29] MEDS ORDERED: ACETAMINOPHEN 325 MG TABLET (FP) PO PRN (23:07)
[2017-11-29] MEDS: SODIUM CHLORIDE 1 GM TABLET PO SCH (23:34)
[2017-11-30] MEDS ORDERED: ZOLPIDEM TARTRATE 5 MG TABLET PO PRN (00:33)
[2017-11-30] MEDS ORDERED: ACETAMINOPHEN 325 MG TABLET (FP) ONE (00:39)
[2017-11-30 06:45] VITALS: BP 131/66
[2017-11-30 07:16] LABS: BASO % 0.3 % (0-2.0); EOS % 1.5 % (0-4.5); HEMOGLOBIN 11.7 GM/dl (11.7-16.9); LYMPH % 25.8 % (8-40); MCH 31.4 pg (25.7-33.7); MCHC 33.5 g/dl (32.0-35.9); MEAN CELL VOLUME 93.6 fl (80-96); MEAN PLT VOLUME 6.9 fl (7.5-11.1); MONO % 8.5 % (3.8-10.2); NEUT % 63.9 % (42.8-82.8); PLATELET COUNT 257 K/MM3 (134-434); RBC 3.74 M/mm3 (4.00-5.60); RDW 13.6 % (11.9-15.9); WHITE BLOOD COUNT 8.2 K/mm3 (4.0-10.8)
[2017-11-30 09:04] LABS: ALK PHOS 48 U/L (32-92); ANION GAP 6 (8-16); BILIRUBIN,TOTAL 0.4 mg/dl (0.2-1.0); BLOOD UREA NITROGEN 25 mg/dl (7-18); CALCIUM 8.7 mg/dl (8.4-10.2); CHLORIDE 109 mmol/L (98-107); CO2 23 mmol/L (22-28); CREATININE 1.2 mg/dl (0.6-1.3); GLUCOSE,RANDOM 90 mg/dl (74-106); POTASSIUM 4.4 mmol/L (3.5-5.1); SGOT/AST 15 U/L (10-42); SGPT/ALT 14 U/L (10-40); SODIUM 138 mmol/L (136-145); TOT PROT 5.1 g/dl (6.4-8.3)
[2017-11-30 09:23] VITALS: PULSE 53; TEMP 98.1
[2017-11-30] MEDS: SODIUM CHLORIDE 1 GM TABLET PO SCH (09:41)
[2017-11-30] MEDS ORDERED: TIOTROPIUM BROMIDE 18 MCG CAPSULES IH SCH (10:00)
[2017-11-30] MEDS ORDERED: PANTOPRAZOLE 40 MG TABLET (FP) PO SCH (10:00)
[2017-11-30] MEDS ORDERED: risperiDONE 1 MG TABLET (FP) PO SCH (10:00)
[2017-11-30] MEDS ORDERED: CLOPIDOGREL BISULFATE 75 MG TABLET (FP) PO SCH (10:00)
[2017-11-30] MEDS ORDERED: LISINOPRIL 10 MG TABLET (FP) PO SCH (10:00)
[2017-11-30] MEDS ORDERED: ALPRAZolam 2 MG TABLET PO SCH (10:00)
[2017-11-30] MEDS ORDERED: ASPIRIN 81 MG CHEWABLE TABLETS PO SCH (10:00)
[2017-11-30] MEDS ORDERED: BUDESONIDE/FORMETEROL FUMARATE 160/4.5 mcg INHALER IH SCH (10:00)
--- NOTE | 2017-11-30 10:39 | DS ---
Physical Examination Vital Signs: Vital Signs Temperature 98.1 F 11/30/17 07:00 Pulse Rate 53 L 11/30/17 07:00 Respiratory Rate 20 11/30/17 07:00 Blood Pressure 131/66 11/30/17 07:00 O2 Sat by Pulse Oximetry (%) 95 11/30/17 07:00 Labs: CBC, BMP 11/30/17 07:00 11/30/17 07:00 Discharge Summary Reason For Visit: HYPONATREMIA Current Active Problems Chest pain (Acute) Hyponatremia (Acute) - Instructions - Home Medications Comprehensive Discharge Medication List: Ambulatory Orders Aspirin [ASA -] 81 mg PO DAILY 04/29/14 Escitalopram Oxalate [Lexapro -] 30 mg PO DAILY 04/29/14 Alprazolam [Xanax] 1 mg PO BID 11/19/14 Bupropion HCl [Wellbutrin Xl -] 300 mg PO DAILY 06/14/15 Risperidone 2 mg PO BID 11/24/15 Zolpidem Tartrate [Ambien] 10 mg PO HS 11/25/15 Lisinopril 10 mg PO DAILY 10/28/16 Atorvastatin Ca [Lipitor] 10 mg PO HS tablet 10/30/16 Ezetimibe [Zetia -] 10 mg PO HS tablet 10/30/16 Clopidogrel Bisulfate [Plavix -] 75 mg PO DAILY 04/23/17 Albuterol Sulfate Inhaler - [Ventolin HFA Inhaler -] 2 inh PO Q4H PRN #1 inh Budesonide/Formeterol Fumarate [SYMBICORT 160/4.5mcg -] 2 puff IH BID #1 inhaler 04/27/17 Pantoprazole Sodium [Protonix -] 40 mg PO DAILY #30 tablet.ec 07/21/17 Tiotropium [place] [Spiriva] 1 puff IH DAILY #1 inh 09/20/17 predniSONE [Deltasone -] 4 mg PO ASDIR 11/16/17 hyponatremia resolvd dc home fu pmd
--- NOTE | 2017-11-30 14:25 | EKG ---
Test Reason : Blood Pressure : / mmHG Vent. Rate : 052 BPM Atrial Rate : 052 BPM P-R Int : 218 ms QRS Dur : 092 ms QT Int : 456 ms P-R-T Axes : 000 -35 039 degrees QTc Int : 424 ms SINUS BRADYCARDIA WITH 1ST DEGREE A-V BLOCK LEFT AXIS DEVIATION MINIMAL VOLTAGE CRITERIA FOR LVH, MAY BE NORMAL VARIANT INFERIOR INFARCT (CITED ON OR BEFORE 21-AUG-2016) ABNORMAL ECG WHEN COMPARED WITH ECG OF 16-NOV-2017 15:40, VENT. RATE HAS DECREASED BY 42 BPM NONSPECIFIC T WAVE ABNORMALITY NO LONGER EVIDENT IN INFERIOR LEADS Confirmed by MELY DELCID MD ([id number]) on 11/30/2017 2:24:37 PM Referred By: MD NIEVES Confirmed By:MELY DELCID MD
[2017-11-30] MEDS ORDERED: EZETIMIBE 10 MG TABLET (FP) PO SCH (22:00)
[2017-11-30] MEDS ORDERED: ATORVASTATIN CA 10 MG TABLET (FP) PO SCH (22:00)
== END 2017-11-30 11:15 | disposition home or self-care (01) ==
LOC: FER 18:00 → FM/S 21:51 → UNDOADMOB 23:02
PROVIDERS: ADMIT Internal Medicine; ATTEND Internal Medicine
PROC: 3E0337Z Introduction of Electrolytic and Water Balance Substance into Peripheral Vein, Percutaneous Approach (ICD-10-PCS; principal; 2017-11-29)
PROC: 3E0F7GC Introduction of Other Therapeutic Substance into Respiratory Tract, Via Natural or Artificial Opening (ICD-10-PCS; 2017-11-29)
DX: R07.89 Other chest pain (principal); E87.1 Hypo-osmolality and hyponatremia; I10 Essential (primary) hypertension; I25.10 Atherosclerotic heart disease of native coronary artery without angina pectoris; I25.2 Old myocardial infarction; F41.8 Other specified anxiety disorders; J44.9 Chronic obstructive pulmonary disease, unspecified; G24.01 Drug induced subacute dyskinesia; Z87.891 Personal history of nicotine dependence; Z79.82 Long term (current) use of aspirin; Z95.5 Presence of coronary angioplasty implant and graft; Z86.79 Personal history of other diseases of the circulatory system
CPT/HCPCS: 36415; 71046-TC-FY; 80053; 81003; 82550; 83880; 84484; 85025; 93005; 94640; 99285-25; G0378; J2794; J7030

== ENCOUNTER 2017-12-19 20:35 | Observation (INO) | payer OTHER, BC ==
--- NOTE | 2017-12-19 20:38 | PDOC ---
History of Present Illness - General History Source: Patient Exam Limitations: No Limitations <Bridger Johnson - Last Filed: 12/19/17 22:40> - General History Source: Patient Exam Limitations: No Limitations <Jessa Cintron I - Last Filed: 12/19/17 22:42> - General Chief Complaint: Chest Pain Stated Complaint: CHEST, BACK PAIN Time Seen by Provider: 12/19/17 20:38 - History of Present Illness Initial Comments: 12/19/17 21:23 The patient is a 72 year old male who presents to the emergency department for evaluation of chest pain. The patient reports moderate chest pain beginning late this afternoon. He describes the chest pain as a band radiating to his back which is sharp and constant in nature, ranked 7/10 in severity. The patient reports associated symptoms of mild dyspnea and non productive cough. Patient describes cough as persistent which he states is similar to previous COPD exacerbation. The patient denies recent travels, numbness and weakness in extremities, headache, and dizziness. Denies fevers, chills, nausea, vomiting, diarrhea, and constipation. Denies dysuria, frequency, urgency, and hematuria. PAST MEDICAL HISTORY: COPD, hypertension, hyperlipidemia, tardive dyskinesia, anxiety, depression PAST SURGICAL HISTORY: Hernia repairs. Abdominal aortic aneurysm (02/03/2017), Cardiac stent (2005, 04/2017) FAMILY HISTORY: no pertinent history SOCIAL HISTORY: Pt lives with family and is employed. MEDICATIONS: reviewed ALLERGIES: As per nursing notes Party Director: Dr. Markus Tabares Gemologist: Dr. Donny HOFFMAN General: No fevers or chills, no weakness, no weight loss HEENT: No change in vision. No sore throat,. No ear pain Cardiovascular: (+)Chest pain. (+)shortness of breath Respiratory: (+)cough. No wheezing. Gastrointestinal: no nausea, vomiting, diarrhea or constipation, No rectal bleeding Genitourinary: No dysuria, hematuria, or frequency Musculoskeletal: No joint or muscle pain or swelling Neurologic: No headache, vertigo, dizziness or loss of consciousness Psychiatric: nor depression Skin: No rashes or easy bruising Endocrine: no increased thirst or abnormal weight change Allergic: no skin or latex allergy All other systems reviewed and normal PE General: Well-nourished well-developed individual, no acute distress HEENT: Throat: Normal, tonsils normal, no erythema or exudate Neck: Supple, no meningeal signs, no lymphadenopathy Eyes:Pupils equal reactive and round, extraocular motion intact Chest: Nontender to palpation Cardiac: S1-S2 normal, regular rate and rhythm, no murmurs rubs or gallops Respiratory: (+)Decreased breath sounds bilaterally. Abdomen: Soft, nondistended, normal bowel sounds, nontender to palpation diffusely. No palpable masses. Extremities: Warm, dry, no cyanosis, clubbing, or edema Skin: No rashes Neuro: Alert and oriented x3, nonfocal exam, grossly intact, normal gait Psych: Normal mood and affect (Bridger Johnson) 12/19/17 21:49 A portion of this note was documented by scribe services under my direction. I have reviewed the details of the note, within reason, and agree with the documentation. The case summary and management plan written by me. Assessment and plan: This is a 72-year-old male with history of hypertension high hyperlipidemia and anxiety depression. Patient has history significant for cardiac stents in the past as well as an abdominal aortic aneurysm. Patient comes in today complaining of chest pain radiating around his chest to the back patient exam is otherwise normal and his vitals are normal. A workup was done including heart attack enzymes with a troponin that was nondetectable Patient's BUN and creatinine were elevated so is unable to do a CT angiogram of the chest or abdomen, A aortic ultrasound is ordered and pending. Given patient's multiple risk factors and a heart score 5 patient will be placed in an observation bed to rule him out 12/19/17 22:31 Discussed with admission with who was accepted patient for observation 12/19/17 22:42 (Jessa Cintron I) Past History <Bridger Johnson - Last Filed: 12/19/17 22:40> - Past Medical History Anemia: No Asthma: No Cancer: No Cardiac Disorders: Yes (cardiac [id number], history of [place] 2005) CVA: No COPD: Yes CHF: No DVT: No Dementia: (FORGETFUL) Diabetes: No GI Disorders: Yes (HEARTBURN) Disorders: No HTN: Yes Hypercholesterolemia: Yes Liver Disease: No Psychiatric Problems: Yes Seizures: No Thyroid Disease: No - Surgical History Abdominal Surgery: Yes (AAA 02/03/2017) Appendectomy: No Cardiac Surgery: Yes (cardiac stent 2005 & 04/2017) Cholecystectomy: No Lung Surgery: No Neurologic Surgery: No Orthopedic Surgery: No - Suicide/Smoking/Psychosocial Hx Smoking Status: No Smoking History: Former smoker Have you smoked in the past 12 months: No Number of Cigarettes Smoked Daily: 0 If you are a former smoker, when did you quit?: 2006 Hx Alcohol Use: No Drug/Substance Use Hx: No Substance Use Type: Alcohol Hx Substance Use Treatment: Yes (patient states he quit alcohol 6 months) <Jessa Cintron I - Last Filed: 12/19/17 22:42> - Past Medical History Allergies/Adverse Reactions: Allergies Allergy/AdvReac Type Severity Reaction Status Date / Time No Known Allergies Allergy Verified 12/19/17 20:37 Home Medications: Ambulatory Orders Aspirin [ASA -] 81 mg PO DAILY 04/29/14 Escitalopram Oxalate [Lexapro -] 30 mg PO DAILY 04/29/14 Alprazolam [Xanax] 1 mg PO BID 11/19/14 Bupropion HCl [Wellbutrin Xl -] 300 mg PO DAILY 06/14/15 Risperidone 2 mg PO BID 11/24/15 Zolpidem Tartrate [Ambien] 10 mg PO HS 11/25/15 Lisinopril 10 mg PO DAILY 10/28/16 Atorvastatin Ca [Lipitor] 10 mg PO HS tablet 10/30/16 Ezetimibe [Zetia -] 10 mg PO HS tablet 10/30/16 Clopidogrel Bisulfate [Plavix -] 75 mg PO DAILY 04/23/17 Albuterol Sulfate Inhaler - [Ventolin HFA Inhaler -] 2 inh PO Q4H PRN #1 inh Budesonide/Formeterol Fumarate [SYMBICORT 160/4.5mcg -] 2 puff IH BID #1 inhaler 04/27/17 Pantoprazole Sodium [Protonix -] 40 mg PO DAILY #30 tablet.ec 07/21/17 Tiotropium [place] [Spiriva] 1 puff IH DAILY #1 inh 09/20/17 predniSONE [Deltasone -] 4 mg PO ASDIR 11/16/17 Cardiac Specific PMH - Complaint Specific PMHX GERD: No Pacemaker: No <Jessa Cintron I - Last Filed: 12/19/17 22:42> - Vital Signs Last Vital Signs Temp Pulse Resp BP Pulse Ox 97.8 F 73 18 136/87 97 12/19/17 20:35 12/19/17 20:35 12/19/17 20:35 12/19/17 20:35 12/19/17 20:35 Heart Score/ECG Review - History History: Slightly suspicious - Electrocardiogram EKG: Non specific repolarization disturbance - Age Age: >/= 65 - Risk Factors Risk Factors Heart Score: Yes Hx Hypercholesterolemia, Yes Hx Hypertension, Yes Smoking History Based on the list above the patient has:: >/=3 risk factors or Hx atherosclerotic disease - Troponin Troponin: </= normal limit - Score Heart Score - Total: 5 <Jessa Cinrton I - Last Filed: 12/19/17 22:42> ED Treatment Course - LABORATORY CBC & Chemistry Diagram: 12/19/17 21:07 12/19/17 21:07 <Bridger Johnson - Last Filed: 12/19/17 22:40> - LABORATORY CBC & Chemistry Diagram: 12/19/17 21:07 12/19/17 21:07 <Jessa Cintron I - Last Filed: 12/19/17 22:42> - ADDITIONAL ORDERS Additional order review: Laboratory Results 12/19/17 12/19/17 12/19/17 21:30 21:07 21:07 Sodium Potassium Chloride Carbon Dioxide Anion Gap BUN Creatinine Creat Clearance w eGFR Random Glucose Calcium Total Bilirubin AST ALT Alkaline Phosphatase Creatine Kinase 112 Troponin I < 0.03 Total Protein Albumin Urine Color Yellow Urine Appearance Clear Urine pH 5.0 Ur Specific [place] <= 1.005 Urine Protein Negative Urine Glucose (UA) Negative Urine Ketones Negative Urine Blood Negative Urine Nitrite Negative Urine Bilirubin Negative Urine Urobilinogen 0.2 Ur Leukocyte Esterase Negative 12/19/17 21:07 Sodium 129 L Potassium 4.5 Chloride 98 Carbon Dioxide 23 Anion Gap 8 BUN 47 H Creatinine 1.6 H Creat Clearance w eGFR 42.58 Random Glucose 119 H D Calcium 8.5 Total Bilirubin < 0.3 AST 20 D ALT 18 Alkaline Phosphatase 53 Creatine Kinase Troponin I Total Protein 6.1 L Albumin 3.5 Urine Color Urine Appearance Urine pH Ur Specific [place] Urine Protein Urine Glucose (UA) Urine Ketones Urine Blood Urine Nitrite Urine Bilirubin Urine Urobilinogen Ur Leukocyte Esterase 12/19/17 21:07 RBC 3.92 L MCV 93.1 MCHC 34.3 RDW 13.4 MPV 6.9 L Neutrophils % 84.0 H Lymphocytes % 9.9 D Monocytes % 5.6 Eosinophils % 0.2 Basophils % 0.3 - RADIOLOGY Radiology Studies Ordered: Category Date Time Status CHEST X-RAY PORTABLE* [RAD] Stat Radiology 12/19/17 20:52 Taken AORTA US [US] Stat Ultrasound 12/19/17 21:47 Ordered *DC/Admit/Observation/Transfer <Bridger Johnson - Last Filed: 12/19/17 22:40> - Discharge Dispostion Decision to Admit order: Yes <Jessa Cintron I - Last Filed: 12/19/17 22:42> Diagnosis at time of Disposition: Hyponatremia Chest pain Qualifiers: Chest pain type: unspecified Qualified Code(s): R07.9 - Chest pain, unspecified - Discharge Dispostion Disposition: HOME Condition at time of disposition: Stable Decision to Admit order Date/Time: Decision to Admit Order Category Date Time Status Decision to Admit to Hospital Routine Admission 12/19/17 22:39 Active - Attestations Scribe Attestion: Documentation prepared by Bridger Johnson, acting as medical records manager for Jessa Cintron MD. (Bridger Johnson)
[2017-12-19 21:20] LABS: HEMOGLOBIN 12.5 GM/dl (11.7-16.9); MEAN CELL VOLUME 93.1 fl (80-96); RDW 13.4 % (11.9-15.9)
[2017-12-19 21:24] LABS: BASO % 0.3 % (0-2.0); EOS % 0.2 % (0-4.5); HEMATOCRIT 36.4 % (35.4-49); LYMPH % 9.9 % (8-40); MCH 31.9 pg (25.7-33.7); MCHC 34.3 g/dl (32.0-35.9); MEAN PLT VOLUME 6.9 fl (7.5-11.1); MONO % 5.6 % (3.8-10.2); PLATELET COUNT 280 K/MM3 (134-434); RBC 3.92 M/mm3 (4.00-5.60); WHITE BLOOD COUNT 10.6 K/mm3 (4.0-10.8)
[2017-12-19 21:33] LABS: ALBUMIN 3.5 g/dl (3.5-5.0); ALK PHOS 53 U/L (32-92); ANION GAP 8 (8-16); BLOOD UREA NITROGEN 47 mg/dl (7-18); CALCIUM 8.5 mg/dl (8.4-10.2); CHLORIDE 98 mmol/L (98-107); CO2 23 mmol/L (22-28); CREATININE 1.6 mg/dl (0.6-1.3); GLUCOSE,RANDOM 119 mg/dl (74-106); POTASSIUM 4.5 mmol/L (3.5-5.1); SGOT/AST 20 U/L (10-42); SGPT/ALT 18 U/L (10-40); SODIUM 129 mmol/L (136-145); TOT PROT 6.1 g/dl (6.4-8.3)
[2017-12-19 21:34] LABS: BILIRUBIN,TOTAL < 0.3 mg/dl (0.2-1.0)
[2017-12-19 21:43] LABS: URINE APPEARANCE Clear; URINE BILIRUBIN Negative (NEGATIVE); URINE COLOR Yellow; URINE GLUCOSE (UA) Negative (NEGATIVE); URINE KETONE Negative (NEGATIVE); URINE LEUK ESTERASE Negative (NEGATIVE); URINE NITRITE Negative (NEGATIVE); URINE PROTEIN Negative (NEGATIVE); URINE UROBILINOGEN 0.2 (0.2-1.0)
[2017-12-20 00:22] VITALS: BMI 28.0
[2017-12-20 08:25] LABS: BASO % 0.3 % (0-2.0); EOS % 0.9 % (0-4.5); HEMATOCRIT 36.1 % (35.4-49); HEMOGLOBIN 12.6 GM/dl (11.7-16.9); LYMPH % 24.3 % (8-40); MCH 32.8 pg (25.7-33.7); MCHC 34.9 g/dl (32.0-35.9); MEAN CELL VOLUME 93.9 fl (80-96); MEAN PLT VOLUME 7.1 fl (7.5-11.1); NEUT % 66.5 % (42.8-82.8); PLATELET COUNT 271 K/MM3 (134-434); RBC 3.85 M/mm3 (4.00-5.60); RDW 13.5 % (11.9-15.9); WHITE BLOOD COUNT 8.7 K/mm3 (4.0-10.8)
[2017-12-20 08:42] LABS: ALBUMIN 3.5 g/dl (3.5-5.0); ALK PHOS 50 U/L (32-92); ANION GAP 7 (8-16); BILIRUBIN,TOTAL 0.3 mg/dl (0.2-1.0); BLOOD UREA NITROGEN 48 mg/dl (7-18); CALCIUM 8.7 mg/dl (8.4-10.2); CHLORIDE 103 mmol/L (98-107); CO2 24 mmol/L (22-28); CREATININE 1.4 mg/dl (0.6-1.3); GLUCOSE,RANDOM 83 mg/dl (74-106); POTASSIUM 4.4 mmol/L (3.5-5.1); SGOT/AST 15 U/L (10-42); SGPT/ALT 17 U/L (10-40); SODIUM 134 mmol/L (136-145); TOT PROT 5.8 g/dl (6.4-8.3)
[2017-12-20] MEDS ORDERED: CLOPIDOGREL BISULFATE 75 MG TABLET (FP) PO SCH (10:00)
[2017-12-20] MEDS ORDERED: ALPRAZolam 0.25 MG TABLET PO SCH (10:00)
[2017-12-20] MEDS ORDERED: ESCITALOPRAM OXALATE 20 MG TABLET (FP) PO SCH (10:00)
[2017-12-20] MEDS ORDERED: ASPIRIN 81 MG CHEWABLE TABLETS PO SCH (10:00)
[2017-12-20] MEDS ORDERED: PANTOPRAZOLE 40 MG TABLET (FP) PO SCH (10:00)
[2017-12-20] MEDS ORDERED: LISINOPRIL 10 MG TABLET (FP) PO SCH (10:00)
[2017-12-20] MEDS ORDERED: BUDESONIDE/FORMETEROL FUMARATE 160/4.5 mcg INHALER IH SCH (10:00)
--- NOTE | 2017-12-20 10:29 | EKG ---
Test Reason : Blood Pressure : / mmHG Vent. Rate : 066 BPM Atrial Rate : 066 BPM P-R Int : 190 ms QRS Dur : 088 ms QT Int : 408 ms P-R-T Axes : 009 -36 012 degrees QTc Int : 427 ms NORMAL SINUS RHYTHM LEFT AXIS DEVIATION MINIMAL VOLTAGE CRITERIA FOR LVH, MAY BE NORMAL VARIANT INFERIOR INFARCT (CITED ON OR BEFORE 21-AUG-2016) ABNORMAL ECG WHEN COMPARED WITH ECG OF 03-DEC-2017 18:46, NO SIGNIFICANT CHANGE WAS FOUND Confirmed by FRANKLIN EVANS, LISA ([id number]) on 12/20/2017 10:28:50 AM Referred By: DR ALEXIS Confirmed By:LISA REID MD
[2017-12-20] MEDS ORDERED: PT OWN MED DRAWER 7, Y5N ONE (10:36)
--- NOTE | 2017-12-20 12:23 | HP ---
Admitting History and Physical - Primary Care Physician PCP: Rita Merrill - Admission History of Present Illness: 72 year old male who presents to the emergency department for evaluation of chest pain. The patient reports moderate chest pain beginning late this afternoon. He describes the chest pain as a band radiating to his back which is sharp and constant in nature, ranked 7/10 in severity. The patient reports associated symptoms of mild dyspnea and non productive cough. Patient describes cough as persistent which he states is similar to previous COPD exacerbation. 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 Cardiovascular: Yes: CAD, HTN, Hyperlipdemia, [place] Pulmonary: Yes: COPD Gastrointestinal: Yes: Other (umbilical hernia) Heme/Onc: Yes: Anemia Psych: Yes: Anxiety, Depression - Past Surgical History Past Surgical History: Yes: None, Stent - Smoking History Smoking history: Former smoker Have you smoked in the past 12 months: No Aproximately how many cigarettes per day: 0 If you are a former smoker, when did you quit?: 2006 - Alcohol/Substance Use Hx Alcohol Use: No History of Substance Use: reports: None - Social History ADL: Independent 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[employer] History of Recent Travel: No Home Medications - Allergies Allergies/Adverse Reactions: Allergies Allergy/AdvReac Type Severity Reaction Status Date / Time No Known Allergies Allergy Verified 12/19/17 20:37 - Home Medications Home Medications: Ambulatory Orders Aspirin [ASA -] 81 mg PO DAILY 04/29/14 Escitalopram Oxalate [Lexapro -] 30 mg PO DAILY 04/29/14 Alprazolam [Xanax] 1 mg PO BID 11/19/14 Bupropion HCl [Wellbutrin Xl -] 300 mg PO DAILY 06/14/15 Risperidone 2 mg PO BID 11/24/15 Zolpidem Tartrate [Ambien] 10 mg PO HS 11/25/15 Lisinopril 10 mg PO DAILY 10/28/16 Atorvastatin Ca [Lipitor] 10 mg PO HS tablet 10/30/16 Ezetimibe [Zetia -] 10 mg PO HS tablet 10/30/16 Clopidogrel Bisulfate [Plavix -] 75 mg PO DAILY 04/23/17 Albuterol Sulfate Inhaler - [Ventolin HFA Inhaler -] 2 inh PO Q4H PRN #1 inh Budesonide/Formeterol Fumarate [SYMBICORT 160/4.5mcg -] 2 puff IH BID #1 inhaler 04/27/17 Pantoprazole Sodium [Protonix -] 40 mg PO DAILY #30 tablet.ec 07/21/17 Tiotropium [place] [Spiriva] 1 puff IH DAILY #1 inh 09/20/17 predniSONE [Deltasone -] 4 mg PO ASDIR 11/16/17 Physical Examination Vital Signs: Vital Signs Temperature 98.3 F 12/20/17 06:00 Pulse Rate 54 L 12/20/17 10:00 Respiratory Rate 19 12/20/17 10:00 Blood Pressure 112/51 12/20/17 10:00 O2 Sat by Pulse Oximetry (%) 95 12/20/17 10:00 Constitutional: Yes: No Distress HENT: Yes: Atraumatic Neck: Yes: Supple Cardiovascular: Yes: Regular Rate and Rhythm Respiratory: Yes: Rhonchi Gastrointestinal: Yes: Normal Bowel Sounds Extremities: Yes: WNL Neurological: Yes: Alert, Oriented Labs: CBC, BMP 12/20/17 07:30 12/20/17 07:30 Problem List - Problems (1) Chest pain Assessment/Plan: monitor on tele troonis are negtaive seems like musculoskeletal and pt said it happens when his copd acts up Code(s): R07.9 - CHEST PAIN, UNSPECIFIED Qualifiers: Chest pain type: unspecified Qualified Code(s): R07.9 - Chest pain, unspecified (2) Anxiety Assessment/Plan: stable Code(s): F41.9 - ANXIETY DISORDER, UNSPECIFIED (3) CAD (coronary artery disease) Code(s): I25.10 - ATHSCL HEART DISEASE OF [place] CORONARY ARTERY W/O ANG PCTRS (4) COPD (chronic obstructive pulmonary disease) Code(s): J44.9 - CHRONIC OBSTRUCTIVE PULMONARY DISEASE, UNSPECIFIED (5) Chronic alcohol abuse Code(s): F10.10 - ALCOHOL ABUSE, UNCOMPLICATED (6) Depression Code(s): F32.9 - MAJOR DEPRESSIVE DISORDER, SINGLE EPISODE, UNSPECIFIED (7) Hypertension Assessment/Plan: on meds stable Code(s): I10 - ESSENTIAL (PRIMARY) HYPERTENSION Assessment/Plan Laboratory Tests 12/19/17 12/19/17 12/19/17 21:07 21:07 21:07 WBC 10.6 RBC 3.92 L Hgb 12.5 Hct 36.4 MCV 93.1 MCH 31.9 MCHC 34.3 RDW 13.4 Plt Count 280 MPV 6.9 L Absolute Neuts (auto) 9.0 Neutrophils % 84.0 H Lymphocytes % 9.9 D Monocytes % 5.6 Eosinophils % 0.2 Basophils % 0.3 Sodium 129 L Potassium 4.5 Chloride 98 Carbon Dioxide 23 Anion Gap 8 BUN 47 H Creatinine 1.6 H Creat Clearance w eGFR 42.58 Random Glucose 119 H D Calcium 8.5 Total Bilirubin < 0.3 AST 20 D ALT 18 Alkaline Phosphatase 53 Creatine Kinase Troponin I < 0.03 Total Protein 6.1 L Albumin 3.5 Urine Color Urine Appearance Urine pH Ur Specific [place] Urine Protein Urine Glucose (UA) Urine Ketones Urine Blood Urine Nitrite Urine Bilirubin Urine Urobilinogen Ur Leukocyte Esterase 12/19/17 12/19/17 12/20/17 21:07 21:30 00:55 WBC RBC Hgb Hct MCV MCH MCHC RDW Plt Count MPV Absolute Neuts (auto) Neutrophils % Lymphocytes % Monocytes % Eosinophils % Basophils % Sodium Potassium Chloride Carbon Dioxide Anion Gap BUN Creatinine Creat Clearance w eGFR Random Glucose Calcium Total Bilirubin AST ALT Alkaline Phosphatase Creatine Kinase 112 99 Troponin I < 0.02 Total Protein Albumin Urine Color Yellow Urine Appearance Clear Urine pH 5.0 Ur Specific [place] <= 1.005 Urine Protein Negative Urine Glucose (UA) Negative Urine Ketones Negative Urine Blood Negative Urine Nitrite Negative Urine Bilirubin Negative Urine Urobilinogen 0.2 Ur Leukocyte Esterase Negative 12/20/17 12/20/17 07:30 07:30 WBC 8.7 RBC 3.85 L Hgb 12.6 Hct 36.1 MCV 93.9 MCH 32.8 MCHC 34.9 RDW 13.5 Plt Count 271 MPV 7.1 L Absolute Neuts (auto) 5.8 Neutrophils % 66.5 D Lymphocytes % 24.3 D Monocytes % 8.0 Eosinophils % 0.9 D Basophils % 0.3 Sodium 134 L Potassium 4.4 Chloride 103 Carbon Dioxide 24 Anion Gap 7 L BUN 48 H Creatinine 1.4 H Creat Clearance w eGFR 49.68 Random Glucose 83 D Calcium 8.7 Total Bilirubin 0.3 AST 15 D ALT 17 Alkaline Phosphatase 50 Creatine Kinase Troponin I Total Protein 5.8 L Albumin 3.5 Urine Color Urine Appearance Urine pH Ur Specific [place] Urine Protein Urine Glucose (UA) Urine Ketones Urine Blood Urine Nitrite Urine Bilirubin Urine Urobilinogen Ur Leukocyte Esterase Active Medications Generic Name Dose Route Start Last Admin Trade Name Christin PRN Reason Stop Dose Admin Alprazolam 1 mg 12/20/17 10:00 12/20/17 10:38 Xanax - PO 1 mg BID FIDEL Administration Aspirin 81 mg 12/20/17 10:00 12/20/17 10:39 Asa - PO 81 mg DAILY FIDEL Administration Atorvastatin Calcium 10 mg 12/20/17 22:00 Lipitor - PO HS [facility] Budesonide/Formoterol Fumarate 2 puff 12/20/17 10:00 12/20/17 10:38 Symbicort 160/4.5mcg - IH 2 puff BID FIDEL Administration Bupropion HCl 300 mg 12/20/17 10:00 12/20/17 10:38 Wellbutrin Xl - PO 300 mg DAILY FIDEL Administration Clopidogrel Bisulfate 75 mg 12/20/17 10:00 12/20/17 10:38 Plavix - PO 75 mg DAILY FIDEL Administration Ezetimibe 10 mg 12/20/17 22:00 Zetia - PO HS [facility] Escitalopram Oxalate 30 mg 12/20/17 10:00 12/20/17 10:39 Lexapro - PO 30 mg DAILY FIDEL Administration Lisinopril 10 mg 12/20/17 10:00 12/20/17 10:38 Prinivil PO 10 mg DAILY FIDEL Administration pt clinically stable his Pantoprazole Sodium 40 mg 12/20/17 10:00 12/20/17 10:38 Protonix - PO 40 mg DAILY FIDEL Administration 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
[2017-12-20 14:26] VITALS: BP 112/62; PULSE 59; TEMP 98
--- NOTE | 2017-12-20 21:50 | DS ---
Physical Examination Vital Signs: Vital Signs Temperature 98.0 F 12/20/17 14:00 Pulse Rate 59 L 12/20/17 14:00 Respiratory Rate 18 12/20/17 14:00 Blood Pressure 112/62 12/20/17 14:00 O2 Sat by Pulse Oximetry (%) 91 L 12/20/17 14:00 Labs: CBC, BMP 12/20/17 07:30 12/20/17 07:30 Discharge Summary Reason For Visit: CHEST, BACK PAIN Condition: Stable - Instructions Diet, Activity, Other Instructions: follow up with cardiology in few days Disposition: HOME - Home Medications Comprehensive Discharge Medication List: Ambulatory Orders Aspirin [ASA -] 81 mg PO DAILY 04/29/14 Escitalopram Oxalate [Lexapro -] 30 mg PO DAILY 04/29/14 Alprazolam [Xanax] 1 mg PO BID 11/19/14 Bupropion HCl [Wellbutrin Xl -] 300 mg PO DAILY 06/14/15 Risperidone 2 mg PO BID 11/24/15 Zolpidem Tartrate [Ambien] 10 mg PO HS 11/25/15 Lisinopril 10 mg PO DAILY 10/28/16 Atorvastatin Ca [Lipitor] 10 mg PO HS tablet 10/30/16 Ezetimibe [Zetia -] 10 mg PO HS tablet 10/30/16 Clopidogrel Bisulfate [Plavix -] 75 mg PO DAILY 04/23/17 Albuterol Sulfate Inhaler - [Ventolin HFA Inhaler -] 2 inh PO Q4H PRN #1 inh Budesonide/Formeterol Fumarate [SYMBICORT 160/4.5mcg -] 2 puff IH BID #1 inhaler 04/27/17 Pantoprazole Sodium [Protonix -] 40 mg PO DAILY #30 tablet.ec 07/21/17 Tiotropium [place] [Spiriva] 1 puff IH DAILY #1 inh 09/20/17 predniSONE [Deltasone -] 4 mg PO ASDIR 11/16/17 [place]
[2017-12-20] MEDS ORDERED: ATORVASTATIN CA 10 MG TABLET (FP) PO SCH (22:00)
[2017-12-20] MEDS ORDERED: EZETIMIBE 10 MG TABLET (FP) PO SCH (22:00)
== END 2017-12-20 16:10 | disposition home or self-care (01) ==
LOC: FER 20:35 → FM/S 22:39 → UNDOADMOB 23:40 → FM/S 23:40
PROVIDERS: ADMIT Internal Medicine; ATTEND Internal Medicine
PROC: 3E0F7GC Introduction of Other Therapeutic Substance into Respiratory Tract, Via Natural or Artificial Opening (ICD-10-PCS; principal; 2017-12-19)
DX: R07.9 Chest pain, unspecified (principal); E87.1 Hypo-osmolality and hyponatremia; I10 Essential (primary) hypertension; I25.10 Atherosclerotic heart disease of native coronary artery without angina pectoris; I25.2 Old myocardial infarction; E78.5 Hyperlipidemia, unspecified; J44.9 Chronic obstructive pulmonary disease, unspecified; F10.10 Alcohol abuse, uncomplicated; F41.9 Anxiety disorder, unspecified; F32.9 Major depressive disorder, single episode, unspecified; Z95.5 Presence of coronary angioplasty implant and graft; Z86.79 Personal history of other diseases of the circulatory system; Z87.891 Personal history of nicotine dependence; Z79.82 Long term (current) use of aspirin
CPT/HCPCS: 36415; 71045-TC-FY; 76775-TC; 80053; 81003; 82550; 84484; 85025; 93005; 94640; 99284-25; G0378

== ENCOUNTER 2017-12-30 16:47 | Observation (INO) | payer OTHER, BC ==
[~2017-12-30 16:47] MED LIST: methylPREDNISolone NA SUCC 40 MG/1 ML VIAL IVPUSH SCH
--- NOTE | 2017-12-30 16:49 | PDOC ---
Attending Attestation - Resident Resident Name: Gage Rivera - ED Attending Attestation I have performed the following: I have examined & evaluated the patient, The case was reviewed & discussed with the resident, I agree w/resident's findings & plan, Exceptions are as noted - HPI HPI: 12/30/17 17:49 Patient with COPD complaining of increased shortness of breath for the last few days. Nonproductive cough is chronic. No fever/chills, leg pain or swelling. - Physicial Exam PE: 12/30/17 17:50 Physical exam is notable for increased respiratory rate, but oxygen saturation is adequate at 98% on room air. There are no rales wheezes or rhonchi, but there appear to be decreased breath sounds at the left base. Pulses full and no leg edema for posterior calf swelling or tenderness - Medical Decision Making 12/30/17 17:51 Chest x-ray shows no evidence of CHF or cardiomegaly. There are increased interstitial markings and hyperinflation suggestive of COPD. There is a questionable opacity at the angle on the left. Impression: Exacerbation of COPD Plan: Chest x-ray, EKG and cardiac enzymes, CBC and chemistries, nebulizer treatment, consider increased steroids and antibiotics. 01/02/18 07:06 The patient improved on nebulizer therapy. He was administered intravenous corticosteroids. He seemed to improve both subjectively and objectively. He was admitted for further treatment and stabilization.
--- NOTE | 2017-12-30 16:52 | PDOC ---
History of Present Illness - General Chief Complaint: Respiratory Stated Complaint: "I HAVE COPD" Time Seen by Provider: 12/30/17 16:52 - History of Present Illness Initial Comments: 72 year old male with PMH of COPD (on 4 MG steroids daily), hypertension, tardive dyskinesia, hyperlipidemia, previous episodes hyponatremia, anxiety and depression presenting with shortness of breath for the past day and cough x 1 week. Patient states that he has been subjectively short of breath over the past day. He tried his breathing treatments at home without much effect. Denies nausea, vomiting, fevers, chills, constipation, chest pain, or other symptoms. His PCP and teletype or varitype keyboard operator is Dr. Hines. 12/30/17 18:06 Past History - Past Medical History Allergies/Adverse Reactions: Allergies Allergy/AdvReac Type Severity Reaction Status Date / Time No Known Allergies Allergy Verified 12/30/17 16:48 Home Medications: Ambulatory Orders Escitalopram Oxalate [Lexapro -] 30 mg PO DAILY 04/29/14 Alprazolam [Xanax] 1 mg PO BID 11/19/14 Bupropion HCl [Wellbutrin Xl -] 300 mg PO DAILY 06/14/15 Risperidone 2 mg PO BID 11/24/15 Zolpidem Tartrate [Ambien] 10 mg PO HS 11/25/15 Lisinopril 10 mg PO DAILY 10/28/16 Ezetimibe [Zetia -] 10 mg PO HS tablet 10/30/16 Clopidogrel Bisulfate [Plavix -] 75 mg PO DAILY 04/23/17 Albuterol Sulfate Inhaler - [Ventolin HFA Inhaler -] 2 inh PO Q4H PRN #1 inh Budesonide/Formeterol Fumarate [SYMBICORT 160/4.5mcg -] 2 puff IH BID #1 inhaler 04/27/17 predniSONE [Deltasone -] 4 mg PO DAILY 11/16/17 Albuterol 0.083% Nebulizer Aletha [Ventolin 0.083% Nebulizer Soln -] 1 neb NEB Q6H PRN 12/30/17 Tiotropium [place] [Spiriva] 2 puff IH DAILY 12/30/17 Anemia: No Asthma: No Cancer: No Cardiac Disorders: Yes (cardiac [id number], history of IN 2005) CVA: No COPD: Yes CHF: No DVT: No Dementia: (FORGETFUL) Diabetes: No GI Disorders: Yes (HEARTBURN) Disorders: No HTN: Yes Hypercholesterolemia: Yes Liver Disease: No Psychiatric Problems: Yes Seizures: No Thyroid Disease: No - Surgical History Abdominal Surgery: Yes (AAA 02/03/2017) Appendectomy: No Cardiac Surgery: Yes (cardiac stent 2005 & 04/2017) Cholecystectomy: No Lung Surgery: No Neurologic Surgery: No Orthopedic Surgery: No - Suicide/Smoking/Psychosocial Hx Smoking Status: No Smoking History: Former smoker Have you smoked in the past 12 months: No Number of Cigarettes Smoked Daily: 0 If you are a former smoker, when did you quit?: 2006 Hx Alcohol Use: No Drug/Substance Use Hx: No Substance Use Type: Alcohol Hx Substance Use Treatment: Yes (patient states he quit alcohol 6 months) Review of Systems - Review of Systems Constitutional: No: Chills, Diaphoresis, Fever HEENTM: No: Blurred Vision, Tearing, Double Vision, Cataracts Respiratory: Yes: Cough, Shortness of Breath, SOB with Exertion, SOB at Rest. No: Orthopnea, Wheezing, Productive cough Cardiac (ROS): No: Chest Pain, Edema, Irregular Heart Rate, Lightheadedness, Palpitations, Syncope ABD/GI: No: Constipated, Diarrhea, Nausea, Vomiting : No: Dysuria, Discharge, Frequency, Flank Pain, Hematuria Musculoskeletal: No: Back Pain, Joint Pain, Muscle Pain Integumentary: No: Bruising, Change in Color, Erythema, Flushing, Lesions Neurological: Yes: Other (tardive dyskinesia). No: Headache, Numbness, Paresthesia Psychiatric: Yes: Anxiety, Depression Hematologic/Lymphatic: No: Anemia, Blood Clots *Physical Exam - Physical Exam General Appearance: Yes: Nourished, Appropriately Dressed. No: Apparent Distress HEENT: positive: EOMI, CHARAN, Normal Voice. negative: Normal ENT Inspection ( rhytmic mouth/ face movements) Neck: positive: Trachea midline, Normal Thyroid, Supple. negative: Tender, Rigid Respiratory/Chest: positive: Lungs Clear, Normal Breath Sounds. negative: Chest Tender, Respiratory Distress, Accessory Muscle Use Cardiovascular: positive: Regular Rhythm, Regular Rate Gastrointestinal/Abdominal: positive: Normal Bowel Sounds, Flat, Soft. negative : Tender Lymphatic: negative: Adenopathy, Tenderness Musculoskeletal: positive: Normal Inspection, Other (rhytmic facial movements). negative: Decreased Range of Motion Extremity: positive: Normal Capillary Refill, Normal Inspection, Normal Range of Motion Integumentary: positive: Normal Color, Dry, Warm Neurologic: positive: Alert, Normal Mood/Affect, Normal Response, Motor Strength /5 ED Treatment Course - LABORATORY CBC & Chemistry Diagram: 12/30/17 17:15 12/30/17 17:15 Medical Decision Making - Medical Decision Making 72 year old male with COPD, hypertension, hyperlipidemia, tardive dyskinesia, chronic hyponatremia, anxiety and depression presenting subjective SOB concerning for mild COPD exacerbation. Treated with nebs x 2 with good improvement. CXR unchanged fom previous. Labs concerning for hyponatremia 126. ABG attempted but patient wasn't tolerating procedure so blood draw was abbreviated. 12/30/17 18:19 Labs overall WNL with exception of hyponatremia to 126. 12/30/17 18:58 *DC/Admit/Observation/Transfer Diagnosis at time of Disposition: Hyponatremia, COPD exacerbation - Discharge Dispostion Condition at time of disposition: Stable Decision to Admit order: Yes - Referrals Referrals: Chandana Hines MD [Primary Care Provider] - - Patient Instructions - Post Discharge Activity
[2017-12-30] MEDS ORDERED: ALBUTEROL SO4 2.5/IPRATROPIUM 0.5 INH SOL 3 ML VIAL.NEB. NEB ONE ×2 (16:53→17:07)
[2017-12-30 17:45] LABS: HEMATOCRIT 37.8 % (35.4-49); HEMOGLOBIN 12.8 GM/dl (11.7-16.9); MCH 31.9 pg (25.7-33.7); MEAN CELL VOLUME 93.9 fl (80-96); MEAN PLT VOLUME 7.4 fl (7.5-11.1); PLATELET COUNT 255 K/MM3 (134-434); RBC 4.03 M/mm3 (4.00-5.60); RDW 13.1 % (11.9-15.9); WHITE BLOOD COUNT 9.9 K/mm3 (4.0-10.8)
[2017-12-30 17:50] LABS: ADD RBC MORPHOLOGY YES
[2017-12-30 17:56] LABS: INR 1.16 (0.82-1.09)
[2017-12-30] MEDS ORDERED: ALBUTEROL SO4 0.083% IH SOL 2.5 MG/3 ML VIAL.NEB. NEB ONE ×2 (18:04→18:08)
[2017-12-30 18:11] LABS: ALBUMIN 3.6 g/dl (3.5-5.0); ALK PHOS 51 U/L (32-92); ANION GAP 8 (8-16); BILIRUBIN,TOTAL 0.8 mg/dl (0.2-1.0); BLOOD UREA NITROGEN 30 mg/dl (7-18); CALCIUM 8.4 mg/dl (8.4-10.2); CHLORIDE 96 mmol/L (98-107); CO2 22 mmol/L (22-28); CREATININE 1.3 mg/dl (0.6-1.3); GLUCOSE,RANDOM 131 mg/dl (74-106); POTASSIUM 4.3 mmol/L (3.5-5.1); SGOT/AST 21 U/L (10-42); SGPT/ALT 20 U/L (10-40); SODIUM 126 mmol/L (136-145); TOT PROT 6.2 g/dl (6.4-8.3)
[2017-12-30] MEDS ORDERED: methylPREDNISolone NA SUCC 125 MG/2 ML VIAL IVPB ONE (18:46)
[2017-12-30] MEDS ORDERED: methylPREDNISolone NA SUCC 125 MG/2 ML VIAL ONE (18:47)
--- NOTE | 2017-12-30 18:57 | EKG ---
Test Reason : Blood Pressure : / mmHG Vent. Rate : 072 BPM Atrial Rate : 072 BPM P-R Int : 182 ms QRS Dur : 092 ms QT Int : 392 ms P-R-T Axes : 003 -26 002 degrees QTc Int : 429 ms NORMAL SINUS RHYTHM INFERIOR INFARCT (CITED ON OR BEFORE 21-AUG-2016) ABNORMAL ECG WHEN COMPARED WITH ECG OF 19-DEC-2017 20:45, NO SIGNIFICANT CHANGE WAS FOUND Confirmed by MD ANCA, ROC ([id number]) on 12/30/2017 6:57:27 PM Referred By: CRISTELA CONTRERAS Confirmed By:ROC MARCH MD
[2017-12-30] MEDS ORDERED: SODIUM CHLORIDE 1,000 ML IV SCH ×2 (19:00→20:59)
[2017-12-30 19:04] LABS: VENOUS PC02 35.6 mmHg (38-52); VENOUS PH 7.41 (7.32-7.42); VENOUS PO2 51.9 mmHg (28-48)
[2017-12-30 19:36] LABS: OVALOCYTE 1+; PLATELET ESTIMATE ADEQUATE
[2017-12-30] MEDS ORDERED: ALBUTEROL SO4 0.083% IH SOL 2.5 MG/3 ML VIAL.NEB. NEB PRN (19:57)
--- NOTE | 2017-12-30 20:12 | HP ---
Admitting History and Physical - Admission Chief Complaint: SOB, Cough History of Present Illness: This is a 72 y/o man with a PMHx of COPD, HTN, hLD, Chronic Hyponatremia, GERD, Anemia, Tardive Dyskensia, Anxiety, Depression. Who presents to the ED with SOB x 1 day, cough x 7 days. Patient reports increased SOB on exertion. 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) Cardiovascular: Yes: CAD, HTN, Hyperlipdemia, MD Pulmonary: Yes: COPD Gastrointestinal: Yes: Other (umbilical hernia) Heme/Onc: Yes: Anemia Psych: Yes: Anxiety, Depression - Past Surgical History Past Surgical History: Yes: Stent Additional Past Surgical History: Left Teticular Prosthesis (placed age 3) - Smoking History Smoking history: Former smoker Have you smoked in the past 12 months: No Aproximately how many cigarettes per day: 0 If you are a former smoker, when did you quit?: 2006 - Alcohol/Substance Use Hx Alcohol Use: No History of Substance Use: reports: None - Social History Usual Living Arrangement: Yes: Alone ADL: Independent 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 History of Recent Travel: No Home Medications - Allergies Allergies/Adverse Reactions: Allergies Allergy/AdvReac Type Severity Reaction Status Date / Time No Known Allergies Allergy Verified 12/30/17 16:48 - Home Medications Home Medications: Ambulatory Orders Escitalopram Oxalate [Lexapro -] 30 mg PO DAILY 04/29/14 Alprazolam [Xanax] 1 mg PO BID 11/19/14 Bupropion HCl [Wellbutrin Xl -] 300 mg PO DAILY 06/14/15 Risperidone 2 mg PO BID 11/24/15 Zolpidem Tartrate [Ambien] 10 mg PO HS 11/25/15 Lisinopril 10 mg PO DAILY 10/28/16 Ezetimibe [Zetia -] 10 mg PO HS tablet 10/30/16 Clopidogrel Bisulfate [Plavix -] 75 mg PO DAILY 04/23/17 Albuterol Sulfate Inhaler - [Ventolin HFA Inhaler -] 2 inh PO Q4H PRN #1 inh Budesonide/Formeterol Fumarate [SYMBICORT 160/4.5mcg -] 2 puff IH BID #1 inhaler 04/27/17 predniSONE [Deltasone -] 4 mg PO DAILY 11/16/17 Albuterol 0.083% Nebulizer Aletha [Ventolin 0.083% Nebulizer Soln -] 1 neb NEB Q6H PRN 12/30/17 Tiotropium Maceo [Spiriva] 2 puff IH DAILY 12/30/17 Family Disease History - Family Disease History Family History: Unable to Obtain Review of Systems - Review of Systems Constitutional: reports: No Symptoms Eyes: reports: No Symptoms HENT: reports: No Symptoms Neck: reports: No Symptoms Cardiovascular: reports: Shortness of Breath Respiratory: reports: Cough, SOB, SOB on Exertion Gastrointestinal: reports: No Symptoms Genitourinary: reports: No Symptoms Breasts: reports: No Symptoms Reported Musculoskeletal: reports: No Symptoms Integumentary: reports: No Symptoms Neurological: reports: No Symptoms Endocrine: reports: No Symptoms Hematology/Lymphatic: reports: No Symptoms Psychiatric: reports: No Symptoms Physical Examination Vital Signs: Vital Signs Temperature 97.8 F 12/30/17 16:47 Pulse Rate 81 12/30/17 17:00 Respiratory Rate 18 12/30/17 16:47 Blood Pressure 138/75 12/30/17 16:47 O2 Sat by Pulse Oximetry (%) 97 12/30/17 17:00 Constitutional: Yes: Well Nourished, No Distress, Calm Eyes: Yes: WNL, Conjunctiva Clear, EOM Intact, PERRL HENT: Yes: WNL, Atraumatic, Normocephalic Neck: Yes: WNL, Supple, Trachea Midline Cardiovascular: Yes: WNL, Regular Rate and Rhythm, S1, S2 Respiratory: Yes: Cough (non-productive), Diminished (bases), On Nasal O2 Gastrointestinal: Yes: WNL, Normal Bowel Sounds, Soft, Abdomen, Obese ...Rectal Exam: Yes: Deferred Renal/: Yes: WNL Breast(s): Yes: WNL Musculoskeletal: Yes: WNL Extremities: Yes: WNL Edema: No Peripheral Pulses WNL: Yes Integumentary: Yes: WNL Neurological: Yes: Alert, Oriented, Cran Nerves II-XII Intact ...Motor Strength: WNL Psychiatric: Yes: WNL, Alert, Oriented Labs: CBC, BMP 12/30/17 17:15 12/30/17 17:15 Intake & Output 12/27/17 12/28/17 12/29/17 12/30/17 23:59 23:59 23:59 23:59 Intake Total 600 Balance 600 Weight 80.343 kg Laboratory Results - last 24 hr 12/30/17 12/30/17 12/30/17 17:15 17:15 17:15 WBC 9.9 RBC 4.03 Hgb 12.8 Hct 37.8 MCV 93.9 MCH 31.9 MCHC 34.0 RDW 13.1 Plt Count 255 MPV 7.4 L Absolute Neuts (auto) 9.2 Neutrophils % No Result Required. Neutrophils % (Manual) 94.0 H* Lymphocytes % No Result Required. Lymphocytes % (Manual) 5.0 L D Monocytes % (Manual) 1 L Platelet Estimate Adequate Ovalocytes 1+ PT with INR 13.0 INR 1.16 Anticoagulation Therapy Puncture Site Patient Temperature ABG pH ABG pCO2 at Pt Temp ABG pO2 at Pt Temp ABG HCO3 ABG O2 Sat (Measured) ABG O2 Content ABG Base Excess Jacinto Test VBG pH POC VBG pCO2 POC VBG pO2 Mixed VBG HCO3 Carboxyhemoglobin Methemoglobin O2 Delivery Device Oxygen Flow Rate Vent Mode Vent Rate Mechanical Rate PEEP Pressure Support Vent Sodium 126 L Potassium 4.3 Chloride 96 L Carbon Dioxide 22 Anion Gap 8 BUN 30 H Creatinine 1.3 Creat Clearance w eGFR 54.11 Random Glucose 131 H D Calcium 8.4 Total Bilirubin 0.8 AST 21 D ALT 20 Alkaline Phosphatase 51 Creatine Kinase Troponin I B-Natriuretic Peptide 431.70 H Total Protein 6.2 L Albumin 3.6 12/30/17 12/30/17 12/30/17 17:15 17:15 17:15 WBC RBC Hgb Hct MCV MCH MCHC RDW Plt Count MPV Absolute Neuts (auto) Neutrophils % Neutrophils % (Manual) Lymphocytes % Lymphocytes % (Manual) Monocytes % (Manual) Platelet Estimate Ovalocytes PT with INR INR Anticoagulation Therapy Puncture Site Patient Temperature ABG pH ABG pCO2 at Pt Temp ABG pO2 at Pt Temp ABG HCO3 ABG O2 Sat (Measured) ABG O2 Content ABG Base Excess Jacinto Test VBG pH 7.41 POC VBG pCO2 35.6 L POC VBG pO2 51.9 H Mixed VBG HCO3 22.3 Carboxyhemoglobin Methemoglobin O2 Delivery Device Oxygen Flow Rate Vent Mode Vent Rate Mechanical Rate PEEP Pressure Support Vent Sodium Potassium Chloride Carbon Dioxide Anion Gap BUN Creatinine Creat Clearance w eGFR Random Glucose Calcium Total Bilirubin AST ALT Alkaline Phosphatase Creatine Kinase 129 Troponin I < 0.03 B-Natriuretic Peptide Total Protein Albumin 12/30/17 17:51 WBC RBC Hgb Hct MCV MCH MCHC RDW Plt Count MPV Absolute Neuts (auto) Neutrophils % Neutrophils % (Manual) Lymphocytes % Lymphocytes % (Manual) Monocytes % (Manual) Platelet Estimate Ovalocytes PT with INR INR Anticoagulation Therapy Cancelled Puncture Site Cancelled Patient Temperature Cancelled ABG pH Cancelled ABG pCO2 at Pt Temp Cancelled ABG pO2 at Pt Temp Cancelled ABG HCO3 Cancelled ABG O2 Sat (Measured) Cancelled ABG O2 Content Cancelled ABG Base Excess Cancelled Jacinto Test Cancelled VBG pH POC VBG pCO2 POC VBG pO2 Mixed VBG HCO3 Carboxyhemoglobin Cancelled Methemoglobin Cancelled O2 Delivery Device Cancelled Oxygen Flow Rate Cancelled Vent Mode Cancelled Vent Rate Cancelled Mechanical Rate Cancelled PEEP Cancelled Pressure Support Vent Cancelled Sodium Potassium Chloride Carbon Dioxide Anion Gap BUN Creatinine Creat Clearance w eGFR Random Glucose Calcium Total Bilirubin AST ALT Alkaline Phosphatase Creatine Kinase Troponin I B-Natriuretic Peptide Total Protein Albumin Imaging - Results Chest X-ray: Report Reviewed (no infiltrates, no effusions), Image Reviewed EKG: Report Reviewed Problem List - Problems (1) COPD exacerbation Assessment/Plan: - stable - Chest Xray- no infiltrate no effusion - Solumederol given in ED, will continue - Amee - Appreciate Pulm consult - Continue home meds - Monitor Spo2 - O2 prn Code(s): J44.1 - CHRONIC OBSTRUCTIVE PULMONARY DISEASE W (ACUTE) EXACERBATION (2) Hyponatremia Assessment/Plan: - Chronic - NS bolus given in ED - Will continue gentle IVF - BMP in am Code(s): E87.1 - HYPO-OSMOLALITY AND HYPONATREMIA (3) ASHD (arteriosclerotic heart disease) Assessment/Plan: - stable - Continue home meds - EKG reviewed Code(s): I25.10 - ATHSCL HEART DISEASE OF [place] CORONARY ARTERY W/O ANG PCTRS (4) Anxiety Assessment/Plan: - stable - Continue home meds Code(s): F41.9 - ANXIETY DISORDER, UNSPECIFIED (5) Depression Assessment/Plan: - Continue home meds Code(s): F32.9 - MAJOR DEPRESSIVE DISORDER, SINGLE EPISODE, UNSPECIFIED (6) Hypertension Assessment/Plan: - stable - Monitor BP - Continue home meds - Monitor renal function Code(s): I10 - ESSENTIAL (PRIMARY) HYPERTENSION (7) S/P AAA repair Assessment/Plan: - Continue plavix - CT- 11/17/17 Moderate COPD, no acute pathology within the chest. Focal aneursymal dilatation of the aortic arch Code(s): Z98.890 - OTHER SPECIFIED POSTPROCEDURAL STATES; Z86.79 - PERSONAL HISTORY OF OTHER DISEASES OF THE CIRCULATORY SYSTEM Assessment/Plan 72 y/o man placed in Observation for Acute COPD Exacerbation, Hyponatremia for evaluation of their emergent condition. Plan: FEN - NS@42ml/hr - Replete lytes prn - Low Na Diet DVT ppx - OOB - SCDs - Consider AC if LOS > 48 hrs Code Status: Full Code Dispo: Observation Visit type - Emergency Visit Emergency Visit: Yes ED Registration Date: 12/30/17 Care time: The patient presented to the Emergency Department on the above date and was hospitalized for further evaluation of their emergent condition. - New Patient This patient is new to me today: Yes Date on this admission: 12/30/17 - Critical Care Critical Care patient: No Hospitalist Screening - Colonoscopy Questionnaire Colonoscopy Questionnaire: Colonoscopy Questionnaire - Patient: 50 - 75 years old and never had a screening colonoscopy: Unknown History of colon or rectal polyps, or CA: Unknown History of IBD, Crohn's disease or UC: Unknown History of abdominal radiation therapy as a child: Unknown - Relative: 1 with colon or rectal CA, or polyps at age 60 or younger: Unknown Colon or rectal CA diagnosed at age 45 or younger: Unknown Multiple relatives with colon or rectal CA: Unknown - Outcome: Screening Result: Negative Screen
[2017-12-30 21:38] VITALS: BMI 28.5
[2017-12-30] MEDS: ALPRAZolam 0.25 MG TABLET PO SCH (22:00)
[2017-12-30] MEDS ORDERED: risperiDONE 2 MG TABLET PO SCH (22:00)
[2017-12-30] MEDS: methylPREDNISolone NA SUCC 40 MG/1 ML VIAL IVPUSH SCH (22:00)
[2017-12-30] MEDS: ZOLPIDEM TARTRATE 5 MG TABLET PO PRN (22:00)
[2017-12-30] MEDS: risperiDONE 1 MG TABLET (FP) PO SCH (22:01)
[2017-12-30] MEDS: EZETIMIBE 10 MG TABLET (FP) PO SCH (22:01)
[2017-12-30] MEDS: BUDESONIDE/FORMETEROL FUMARATE 160/4.5 mcg INHALER IH SCH (22:59)
[2017-12-31] MEDS ORDERED: methylPREDNISolone NA SUCC 40 MG/1 ML VIAL IVPUSH SCH (02:00)
--- NOTE | 2017-12-31 08:20 | PN ---
Physical Exam: SUBJECTIVE: Patient seen and examined Pt reports feeling better, SOB improved, cough with clear sputum and also reports mild abdominal discomfort,denies cp,palpitations, N/V/D or urinary symptoms. OBJECTIVE: Vital Signs Period Temp Pulse Resp BP Sys/Gonzales Pulse Ox Last 24 Hr 97.8 F-98.0 F 48-81 18-20 107-138/52-75 96-99 GENERAL: The patient is awake, alert, and fully oriented, in no acute distress. HEAD: Normal with no signs of trauma. EYES: PERRL, extraocular movements intact, sclera anicteric, conjunctiva clear. No ptosis. ENT: Ears normal, nares patent, oropharynx clear without exudates, moist mucous membranes. NECK: Trachea midline, full range of motion, supple. LUNGS: BS diminished, no wheezing, no rales/ Ronchi HEART: Regular rate and rhythm, S1, S2 without murmur, rub or gallop. ABDOMEN: Soft, nontender, nondistended, normoactive bowel sounds, no guarding, no rebound, no hepatosplenomegaly, no masses. EXTREMITIES: 2+ pulses, warm, well-perfused, no edema. NEUROLOGICAL: Cranial nerves II through XII grossly intact. Normal speech, gait not observed. PSYCH: Normal mood, normal affect. SKIN: Warm, dry, normal turgor, no rashes or lesions noted Laboratory Results - last 24 hr 12/30/17 12/30/17 12/30/17 17:15 17:15 17:15 WBC 9.9 RBC 4.03 Hgb 12.8 Hct 37.8 MCV 93.9 MCH 31.9 MCHC 34.0 RDW 13.1 Plt Count 255 MPV 7.4 L Absolute Neuts (auto) 9.2 Neutrophils % No Result Required. Neutrophils % (Manual) 94.0 H* Lymphocytes % No Result Required. Lymphocytes % (Manual) 5.0 L D Monocytes % (Manual) 1 L Platelet Estimate Adequate Ovalocytes 1+ PT with INR 13.0 INR 1.16 Anticoagulation Therapy Puncture Site Patient Temperature ABG pH ABG pCO2 at Pt Temp ABG pO2 at Pt Temp ABG HCO3 ABG O2 Sat (Measured) ABG O2 Content ABG Base Excess Jacinto Test VBG pH POC VBG pCO2 POC VBG pO2 Mixed VBG HCO3 Carboxyhemoglobin Methemoglobin O2 Delivery Device Oxygen Flow Rate Vent Mode Vent Rate Mechanical Rate PEEP Pressure Support Vent Sodium 126 L Potassium 4.3 Chloride 96 L Carbon Dioxide 22 Anion Gap 8 BUN 30 H Creatinine 1.3 Creat Clearance w eGFR 54.11 POC Glucometer Random Glucose 131 H D Calcium 8.4 Total Bilirubin 0.8 AST 21 D ALT 20 Alkaline Phosphatase 51 Creatine Kinase Troponin I B-Natriuretic Peptide 431.70 H Total Protein 6.2 L Albumin 3.6 12/30/17 12/30/17 12/30/17 17:15 17:15 17:15 WBC RBC Hgb Hct MCV MCH MCHC RDW Plt Count MPV Absolute Neuts (auto) Neutrophils % Neutrophils % (Manual) Lymphocytes % Lymphocytes % (Manual) Monocytes % (Manual) Platelet Estimate Ovalocytes PT with INR INR Anticoagulation Therapy Puncture Site Patient Temperature ABG pH ABG pCO2 at Pt Temp ABG pO2 at Pt Temp ABG HCO3 ABG O2 Sat (Measured) ABG O2 Content ABG Base Excess Jacinto Test VBG pH 7.41 POC VBG pCO2 35.6 L POC VBG pO2 51.9 H Mixed VBG HCO3 22.3 Carboxyhemoglobin Methemoglobin O2 Delivery Device Oxygen Flow Rate Vent Mode Vent Rate Mechanical Rate PEEP Pressure Support Vent Sodium Potassium Chloride Carbon Dioxide Anion Gap BUN Creatinine Creat Clearance w eGFR POC Glucometer Random Glucose Calcium Total Bilirubin AST ALT Alkaline Phosphatase Creatine Kinase 129 Troponin I < 0.03 B-Natriuretic Peptide Total Protein Albumin 12/30/17 12/30/17 17:51 23:02 WBC RBC Hgb Hct MCV MCH MCHC RDW Plt Count MPV Absolute Neuts (auto) Neutrophils % Neutrophils % (Manual) Lymphocytes % Lymphocytes % (Manual) Monocytes % (Manual) Platelet Estimate Ovalocytes PT with INR INR Anticoagulation Therapy Cancelled Puncture Site Cancelled Patient Temperature Cancelled ABG pH Cancelled ABG pCO2 at Pt Temp Cancelled ABG pO2 at Pt Temp Cancelled ABG HCO3 Cancelled ABG O2 Sat (Measured) Cancelled ABG O2 Content Cancelled ABG Base Excess Cancelled Jacinto Test Cancelled VBG pH POC VBG pCO2 POC VBG pO2 Mixed VBG HCO3 Carboxyhemoglobin Cancelled Methemoglobin Cancelled O2 Delivery Device Cancelled Oxygen Flow Rate Cancelled Vent Mode Cancelled Vent Rate Cancelled Mechanical Rate Cancelled PEEP Cancelled Pressure Support Vent Cancelled Sodium Potassium Chloride Carbon Dioxide Anion Gap BUN Creatinine Creat Clearance w eGFR POC Glucometer 165 Random Glucose Calcium Total Bilirubin AST ALT Alkaline Phosphatase Creatine Kinase Troponin I B-Natriuretic Peptide Total Protein Albumin Active Medications Generic Name Dose Route Start Last Admin Trade Name Freq PRN Reason Stop Dose Admin Albuterol Sulfate 1 amp 12/30/17 19:57 Ventolin 0.083% Nebulizer Soln - NEB Q6H PRN WHEEZING Alprazolam 1 mg 12/30/17 22:00 12/30/17 22:00 Xanax - PO 1 mg BID FIDEL Administration Budesonide/Formoterol Fumarate 2 puff 12/30/17 22:00 12/30/17 22:59 Symbicort 160/4.5mcg - IH 2 puff BID FIDEL Administration Bupropion HCl 300 mg 12/31/17 10:00 Wellbutrin Xl - PO DAILY FIDEL Clopidogrel Bisulfate 75 mg 12/31/17 10:00 Plavix - PO DAILY FIDEL Ezetimibe 10 mg 12/30/17 22:00 12/30/17 22:01 Zetia - PO 10 mg HS FIDEL Administration Escitalopram Oxalate 30 mg 12/31/17 10:00 Lexapro - PO DAILY FIDEL Sodium Chloride 1,000 mls @ 42 mls/hr 12/30/17 20:59 12/30/17 22:01 Normal Saline - IV 42 mls/hr ASDIR FIDEL Administration Lisinopril 10 mg 12/31/17 10:00 Prinivil PO DAILY FIDEL Methylprednisolone Sodium Succinate 40 mg 12/30/17 22:00 12/30/17 22:00 Solu-Medrol - IVPUSH Not Given BID FIDEL Risperidone 2 mg 12/30/17 22:00 12/30/17 22:01 Risperdal - PO 2 mg BID FIDEL Administration Tiotropium Mitchell 2 puff 12/31/17 10:00 Spiriva Respimat IH DAILY FIDEL Zolpidem Tartrate 5 mg 12/30/17 22:00 12/30/17 22:00 Ambien - PO 5 mg HS PRN Administration INSOMNIA IMAGING Chest X-ray: Report Reviewed (no infiltrates, no effusions), Image Reviewed EKG:NSR CT- 11/17/17 Moderate COPD, no acute pathology within the chest. Focal aneursymal dilatation of the aortic arch. ASSESSMENT/PLAN: This is a 72 y/o man with a PMHx of COPD,CAD s/p ND 11 years ago, PCI, AAA repair with stent placement 01/2017,HTN, HLD, Chronic Hyponatremia, S/P AAA repair,GERD, Anemia, Tardive Dyskensia, Anxiety, Depression. Who presents to the ED with worsening SOB and cough x 7 days. *COPD exacerbation - Chest Xray- no infiltrate no effusion - will continue on Solumederol,Spiriva,Symbicort and Duonebs - Pulm consult consulted - Monitor Spo2 - O2 prn *Hyponatremia- - chronic - Na 126 on adm- Rpt 130 improving - NS bolus given in ED - Will continue gentle IVF - will check urine studies, serum osmolality -will f/u on BMP * Hx of CAD/ND - will cont on ASA, Plavix,Lisinopril and Statin - BNP 431 - Trop- neg -Echo on 07/30:grade I diastolic dysfunction, ef 65-70% *HDL - will continue on Statin *Anxiety/ Depression - will continue home meds Lexapro Risperdal, Xanax and Wellbutrin *Hypertension- BP stable - will continue Lisinopril * Hx of AAA repair with stent placement - will cont on Plavix * GERD - on PPI *DVT ppx - OOB, Heparin sq - SCDs Code Status: Full Code Visit type - Emergency Visit Emergency Visit: Yes ED Registration Date: 12/30/17 Care time: The patient presented to the Emergency Department on the above date and was hospitalized for further evaluation of their emergent condition. - New Patient This patient is new to me today: Yes Date on this admission: 12/31/17 - Critical Care Critical Care patient: No
[2017-12-31 09:04] LABS: HEMOGLOBIN 12.7 GM/dl (11.7-16.9); MCH 32.5 pg (25.7-33.7); MCHC 34.3 g/dl (32.0-35.9); MEAN CELL VOLUME 94.7 fl (80-96); MEAN PLT VOLUME 7.6 fl (7.5-11.1); PLATELET COUNT 254 K/MM3 (134-434); RBC 3.91 M/mm3 (4.00-5.60); RDW 13.6 % (11.9-15.9); WHITE BLOOD COUNT 7.8 K/mm3 (4.0-10.8)
[2017-12-31] MEDS: methylPREDNISolone NA SUCC 40 MG/1 ML VIAL IVPUSH SCH ×2 (09:22→21:22)
[2017-12-31] MEDS: CLOPIDOGREL BISULFATE 75 MG TABLET (FP) PO SCH (09:23)
[2017-12-31] MEDS: LISINOPRIL 10 MG TABLET (FP) PO SCH (09:23)
[2017-12-31] MEDS: BUDESONIDE/FORMETEROL FUMARATE 160/4.5 mcg INHALER IH SCH ×2 (09:23→21:23)
[2017-12-31] MEDS: risperiDONE 1 MG TABLET (FP) PO SCH ×2 (09:23→21:22)
[2017-12-31] MEDS: ESCITALOPRAM OXALATE 20 MG TABLET (FP) PO SCH (09:24)
[2017-12-31] MEDS: ALPRAZolam 0.25 MG TABLET PO SCH ×2 (09:24→21:22)
[2017-12-31 09:57] LABS: ANION GAP 7 (8-16); BLOOD UREA NITROGEN 27 mg/dl (7-18); CALCIUM 8.8 mg/dl (8.4-10.2); CHLORIDE 102 mmol/L (98-107); CO2 21 mmol/L (22-28); CREATININE 1.2 mg/dl (0.6-1.3); GLUCOSE,RANDOM 155 mg/dl (74-106); PHOSPHOROUS 3.6 mg/dl (2.5-4.6); POTASSIUM 4.5 mmol/L (3.5-5.1); SODIUM 130 mmol/L (136-145)
[2017-12-31] MEDS: PANTOPRAZOLE 40 MG TABLET (FP) PO SCH (10:13)
[2017-12-31] MEDS: ASPIRIN COATED 81 MG TABLET.EC PO SCH (10:13)
[2017-12-31] MEDS ORDERED: SODIUM CHLORIDE 1,000 ML IV SCH (10:22)
[2017-12-31] MEDS: TIOTROPIUM BROMIDE 2.5 MCG (SPIRIVA) RESPIMAT INHALER IH SCH (12:53)
[2017-12-31] MEDS: HEPARIN NA (PORCINE) 5,000 UNITS/ML 1ML VIAL SQ SCH ×2 (13:00→21:22)
--- NOTE | 2017-12-31 13:05 | CON.PULM ---
Consult Consult Specialty:: PULMONARY Referred by:: PMD Reason for Consultation:: COPD - History of Present Illness Chief Complaint: COUGH/SOB History of Present Illness: 72 year old male with PMH of COPD (on 4 MG steroids daily), hypertension, tardive dyskinesia, hyperlipidemia, previous episodes hyponatremia, anxiety and depression presenting with shortness of breath for the past day and cough x 1 week. Patient states that he has been subjectively short of breath over the past day. He tried his breathing treatments at home without much effect. Denies nausea, vomiting, fevers, chills, constipation, chest pain, or other symptoms. His PCP and director of strategic programs is Dr. Hines. 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) Cardio/Vascular: Yes: CAD, HTN, Hyperlipdemia, SC Pulmonary: Yes: COPD Gastrointestinal: Yes: Other (umbilical hernia) Psych: Yes: Anxiety, Depression - Past Surgical History Past Surgical History: Yes: Stent - Alcohol/Substance Use Hx Alcohol Use: No History of Substance Use: reports: None - Smoking History Smoking history: Former smoker Have you smoked in the past 12 months: No Aproximately how many cigarettes per day: 0 If you are a former smoker, when did you quit?: 2006 - Social History ADL: Independent 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 History of Recent Travel: No Home Medications - Allergies Allergies/Adverse Reactions: Allergies Allergy/AdvReac Type Severity Reaction Status Date / Time No Known Allergies Allergy Verified 12/30/17 16:48 - Home Medications Home Medications: Ambulatory Orders Escitalopram Oxalate [Lexapro -] 30 mg PO DAILY 04/29/14 Alprazolam [Xanax] 1 mg PO BID 11/19/14 Bupropion HCl [Wellbutrin Xl -] 300 mg PO DAILY 06/14/15 Risperidone 2 mg PO BID 11/24/15 Zolpidem Tartrate [Ambien] 10 mg PO HS 11/25/15 Lisinopril 10 mg PO DAILY 10/28/16 Ezetimibe [Zetia -] 10 mg PO HS tablet 10/30/16 Clopidogrel Bisulfate [Plavix -] 75 mg PO DAILY 04/23/17 Albuterol Sulfate Inhaler - [Ventolin HFA Inhaler -] 2 inh PO Q4H PRN #1 inh Budesonide/Formeterol Fumarate [SYMBICORT 160/4.5mcg -] 2 puff IH BID #1 inhaler 04/27/17 predniSONE [Deltasone -] 4 mg PO DAILY 11/16/17 Albuterol 0.083% Nebulizer Aletha [Ventolin 0.083% Nebulizer Soln -] 1 neb NEB Q6H PRN 12/30/17 Tiotropium [place] [Spiriva] 2 puff IH DAILY 12/30/17 Family Disease History - Family Disease History Family History: Unable to Obtain Review of Systems Unable to obtain ROS, reason: POOR HISTORIAN Physical Exam Vital Sings: Vital Signs Temperature 97.9 F 12/31/17 09:18 Pulse Rate 64 12/31/17 09:18 Respiratory Rate 17 12/31/17 09:18 Blood Pressure 136/73 12/31/17 09:18 O2 Sat by Pulse Oximetry (%) 98 12/31/17 10:22 Constitutional: Yes: Anxious Eyes: Yes: EOM Intact HENT: Yes: Normocephalic Neck: Yes: Trachea Midline Cardiovascular: Yes: Regular Rate and Rhythm Respiratory: Yes: Diminished, Rhonchi Gastrointestinal: Yes: Soft Edema: No Neurological: Yes: Pre-Existing Deficit Labs: CBC, BMP 12/31/17 06:30 12/31/17 06:30 ABG Results ABG pH Cancelled 12/30/17 17:51 ABG pCO2 at Pt Temp Cancelled 12/30/17 17:51 ABG pO2 at Pt Temp Cancelled 12/30/17 17:51 ABG HCO3 Cancelled 12/30/17 17:51 ABG O2 Sat (Measured) Cancelled 12/30/17 17:51 ABG O2 Content Cancelled 12/30/17 17:51 ABG Base Excess Cancelled 12/30/17 17:51 REST REVIEWED Imaging - Results Chest X-ray: Report Reviewed, Image Reviewed Problem List - Problems (1) COPD exacerbation Code(s): J44.1 - CHRONIC OBSTRUCTIVE PULMONARY DISEASE W (ACUTE) EXACERBATION (2) Hyponatremia Code(s): E87.1 - HYPO-OSMOLALITY AND HYPONATREMIA (3) ASHD (arteriosclerotic heart disease) Code(s): I25.10 - ATHSCL HEART DISEASE OF [place] CORONARY ARTERY W/O ANG PCTRS (4) Anxiety Code(s): F41.9 - ANXIETY DISORDER, UNSPECIFIED (5) Chronic alcohol abuse Code(s): F10.10 - ALCOHOL ABUSE, UNCOMPLICATED (6) Hypertension Code(s): I10 - ESSENTIAL (PRIMARY) HYPERTENSION (7) S/P AAA repair Code(s): Z98.890 - OTHER SPECIFIED POSTPROCEDURAL STATES; Z86.79 - PERSONAL HISTORY OF OTHER DISEASES OF THE CIRCULATORY SYSTEM Assessment/Plan MILD A/E COPD OTHERWISE APPEARS AT BASELINE AGREE O2/ALLA/LABA/LAMA/ICS ANTIBIOTICS HELD AT THIS POINT MAY NEED SOCIAL SERVICE INPUT UPON DISCHARGE Jeromy PORRAS MD
[2017-12-31 17:07] LABS: PH,URINE 5.5 (4.5-8); URINE APPEARANCE Clear; URINE BILIRUBIN Negative (NEGATIVE); URINE COLOR Yellow; URINE GLUCOSE (UA) Negative (NEGATIVE); URINE KETONE Negative (NEGATIVE); URINE LEUK ESTERASE Negative (NEGATIVE); URINE NITRITE Negative (NEGATIVE); URINE PROTEIN Negative (NEGATIVE); URINE UROBILINOGEN 0.2 (0.2-1.0)
[2017-12-31] MEDS ORDERED: PT OWN MED DRAWER 7, Y5N ONE (21:20)
[2017-12-31] MEDS: ZOLPIDEM TARTRATE 5 MG TABLET PO PRN (21:23)
[2017-12-31] MEDS: EZETIMIBE 10 MG TABLET (FP) PO SCH (21:23)
[2018-01-01] MEDS: HEPARIN NA (PORCINE) 5,000 UNITS/ML 1ML VIAL SQ SCH (06:19)
[2018-01-01 06:38] VITALS: BP 115/50; PULSE 55; TEMP 98.3
--- NOTE | 2018-01-01 08:09 | PN ---
Physical Exam: SUBJECTIVE: Patient seen and examined. States he is SOB but this is his baseline , no worse than usual. OBJECTIVE: Vital Signs Period Temp Pulse Resp BP Sys/Gonzales Pulse Ox Last 24 Hr 97.7 F-98.3 F 50-76 17-20 115-136/50-73 97-99 GENERAL: The patient is awake, alert, and fully oriented, in no acute distress. LUNGS: Breath sounds equal, clear to auscultation bilaterally, no wheezes, no crackles, no accessory muscle use. HEART: Regular rate and rhythm, S1, S2 ABDOMEN: Soft, nontender, nondistended EXTREMITIES: 2+ pulses, warm, well-perfused, no edema, no calf tenderness NEUROLOGICAL: Cranial nerves II through XII grossly intact. Normal speech. Laboratory Results - last 24 hr 12/31/17 12/31/17 12/31/17 06:30 06:30 16:00 WBC 7.8 RBC 3.91 L Hgb 12.7 Hct 37.0 MCV 94.7 MCH 32.5 MCHC 34.3 RDW 13.6 Plt Count 254 MPV 7.6 Neutrophils % No Result Required. Lymphocytes % No Result Required. Sodium 130 L Potassium 4.5 Chloride 102 Carbon Dioxide 21 L Anion Gap 7 L BUN 27 H Creatinine 1.2 Creat Clearance w eGFR 59.35 Random Glucose 155 H Serum Osmolality Calcium 8.8 Phosphorus 3.6 Magnesium 2.0 Urine Color Urine Appearance Urine pH Ur Specific [place] Urine Protein Urine Glucose (UA) Urine Ketones Urine Blood Urine Nitrite Urine Bilirubin Urine Urobilinogen Ur Leukocyte Esterase Urine Osmolality 192 L Ur Random Sodium 12/31/17 12/31/17 12/31/17 16:00 16:00 16:00 WBC RBC Hgb Hct MCV MCH MCHC RDW Plt Count MPV Neutrophils % Lymphocytes % Sodium Potassium Chloride Carbon Dioxide Anion Gap BUN Creatinine Creat Clearance w eGFR Random Glucose Serum Osmolality 299 Calcium Phosphorus Magnesium Urine Color Yellow Urine Appearance Clear Urine pH 5.5 Ur Specific [place] <= 1.005 Urine Protein Negative Urine Glucose (UA) Negative Urine Ketones Negative Urine Blood Negative Urine Nitrite Negative Urine Bilirubin Negative Urine Urobilinogen 0.2 Ur Leukocyte Esterase Negative Urine Osmolality Ur Random Sodium 20 L Active Medications Generic Name Dose Route Start Last Admin Trade Name Freq PRN Reason Stop Dose Admin Albuterol Sulfate 1 amp 12/30/17 19:57 Ventolin 0.083% Nebulizer Soln - NEB Q6H PRN WHEEZING Alprazolam 1 mg 12/30/17 22:00 12/31/17 21:22 Xanax - PO 1 mg BID FIDEL Administration Aspirin 81 mg 12/31/17 10:00 12/31/17 10:13 Ecotrin - PO 81 mg DAILY FIDEL Administration Budesonide/Formoterol Fumarate 2 puff 12/30/17 22:00 12/31/17 21:23 Symbicort 160/4.5mcg - IH 2 puff BID FIDEL Administration Bupropion HCl 300 mg 12/31/17 10:00 12/31/17 09:24 Wellbutrin Xl - PO 300 mg DAILY FIDEL Administration Clopidogrel Bisulfate 75 mg 12/31/17 10:00 12/31/17 09:23 Plavix - PO 75 mg DAILY FIDEL Administration Ezetimibe 10 mg 12/30/17 22:00 12/31/17 21:23 Zetia - PO 10 mg HS FIDEL Administration Escitalopram Oxalate 30 mg 12/31/17 10:00 12/31/17 09:24 Lexapro - PO 30 mg DAILY FIDEL Administration Heparin Sodium (Porcine) 5,000 unit 12/31/17 14:00 01/01/18 06:19 Heparin - SQ 5,000 unit TID FIDEL Administration Sodium Chloride 1,000 mls @ 50 mls/hr 12/31/17 10:22 12/31/17 10:46 Normal Saline - IV 50 mls/hr ASDIR FIDEL Administration Lisinopril 10 mg 12/31/17 10:00 12/31/17 09:23 Prinivil PO 10 mg DAILY FIDEL Administration Methylprednisolone Sodium Succinate 40 mg 12/30/17 22:00 12/31/17 21:22 Solu-Medrol - IVPUSH 40 mg BID FIDEL Administration Pantoprazole Sodium 40 mg 12/31/17 10:00 12/31/17 10:13 Protonix - PO 40 mg DAILY FIDEL Administration Risperidone 2 mg 12/30/17 22:00 12/31/17 21:22 Risperdal - PO 2 mg BID FDIEL Administration Tiotropium [place] 2 puff 12/31/17 10:00 12/31/17 12:53 Spiriva Respimat IH 2 puff DAILY FIDEL Administration Zolpidem Tartrate 5 mg 12/30/17 22:00 12/31/17 21:23 Ambien - PO 5 mg HS PRN Administration INSOMNIA IMAGING 12/30 CXR: unremarkable 11/17/17 CT chest: moderate COPD, no acute pathology within the chest; focal aneursymal dilatation of the aortic arch unchanged ASSESSMENT/PLAN: 72 year-old male with a PMH significant for HTN, HLD, CAD s/p [place], diastolic dysfunction, AAA repair with stent placement 01/2017, chronic hyponatremia, tardive dyskensia, anxiety, and depression. Placed on observation for COPD exacerbation. COPD exacerbation --CXR: unremarkable --continue Spiriva, Symbicort, and duonebs --convert prednsione to PO, 60mg today --maintain O2 >92% Hyponatremia, chronic --Na 126 on admission-->130-->-->133 --stop IV fluids Coronary artery disease --continue ASA, Zetia Diastolic dysfunction --not on routine diuretics Hypertension --continue lisinopril Hyperlipidemia --continue Zetia Anxiety/ Depression --continue Lexapro, Risperdal, Xanax and Wellbutrin s/p AAA repair with stent placement --continue Plavix FEN Fluids: PO intake adequate Electrolytes: replete as indicated Nutrition: low sodium DVT prophylaxis: subq heparin Pre post Dispo: continues to require observation. Full code.
[2018-01-01 08:18] LABS: ANION GAP 8 (8-16); BLOOD UREA NITROGEN 20 mg/dl (7-18); CHLORIDE 102 mmol/L (98-107); CO2 23 mmol/L (22-28); CREATININE 1.1 mg/dl (0.6-1.3); GLUCOSE,RANDOM 125 mg/dl (74-106); MAGNESIUM 1.7 mg/dL (1.8-2.4); POTASSIUM 4.7 mmol/L (3.5-5.1); SODIUM 133 mmol/L (136-145)
--- NOTE | 2018-01-01 10:01 | DS ---
Physical Exam: SUBJECTIVE: Patient seen and examined at bedside. Feels SOB but this is at baseline, no worse than usual. OBJECTIVE: Vital Signs Period Temp Pulse Resp BP Sys/Gonzales Pulse Ox Last 24 Hr 97.7 F-98.3 F 50-76 18-20 115-130/50-64 97-99 PHYSICAL EXAM GENERAL: The patient is awake, alert, and fully oriented, in no acute distress. LUNGS: Breath sounds equal, clear to auscultation bilaterally, no wheezes, no crackles, no accessory muscle use. HEART: Regular rate and rhythm, S1, S2 ABDOMEN: Soft, nontender, nondistended, normoactive bowel sounds EXTREMITIES: 2+ pulses, warm, well-perfused, no edema. NEUROLOGICAL: Cranial nerves II through XII grossly intact. Normal speech, moving all extremities freely Laboratory Results - last 24 hr 12/31/17 12/31/17 12/31/17 06:30 16:00 16:00 Sodium 130 L Potassium 4.5 Chloride 102 Carbon Dioxide 21 L Anion Gap 7 L BUN 27 H Creatinine 1.2 Creat Clearance w eGFR 59.35 Random Glucose 155 H Serum Osmolality Calcium 8.8 Phosphorus 3.6 Magnesium 2.0 Urine Color Yellow Urine Appearance Clear Urine pH 5.5 Ur Specific [place] <= 1.005 Urine Protein Negative Urine Glucose (UA) Negative Urine Ketones Negative Urine Blood Negative Urine Nitrite Negative Urine Bilirubin Negative Urine Urobilinogen 0.2 Ur Leukocyte Esterase Negative Urine Osmolality 192 L Ur Random Sodium 12/31/17 12/31/17 01/01/18 16:00 16:00 07:10 Sodium 133 L Potassium 4.7 Chloride 102 Carbon Dioxide 23 Anion Gap 8 BUN 20 H Creatinine 1.1 Creat Clearance w eGFR > 60 Random Glucose 125 H Serum Osmolality 299 Calcium 9.0 Phosphorus Magnesium 1.7 L Urine Color Urine Appearance Urine pH Ur Specific [place] Urine Protein Urine Glucose (UA) Urine Ketones Urine Blood Urine Nitrite Urine Bilirubin Urine Urobilinogen Ur Leukocyte Esterase Urine Osmolality Ur Random Sodium 20 L HOSPITAL COURSE: Date of Admission:12/30/17 Date of Discharge: 01/01/18 IMAGING 12/30 CXR: unremarkable 11/17/17 CT chest: moderate COPD, no acute pathology within the chest; focal aneursymal dilatation of the aortic arch unchanged ASSESSMENT/PLAN: 72 year-old male with a PMH significant for HTN, HLD, CAD s/p [place], diastolic dysfunction, AAA repair with stent placement 01/2017, chronic hyponatremia, tardive dyskensia, anxiety, and depression. Placed on observation for COPD exacerbation. COPD exacerbation --CXR: unremarkable --continue Spiriva, Symbicort, and duonebs --convert prednsione to PO, 60mg today; no steroids on discharge --pre post: 97% on room air at rest, 96% on room air with ambulation Hyponatremia, chronic --Na 126 on admission-->130-->-->133 --treated overnight with gentle IV fluids Coronary artery disease --continued ASA, Zetia Diastolic dysfunction --not on routine diuretics Hypertension --continue lisinopril Hyperlipidemia --continued Zetia Anxiety/ Depression --continued Lexapro, Risperdal, Xanax and Wellbutrin s/p AAA repair with stent placement --continued Plavix Minutes to complete discharge: 35 Discharge Summary Reason For Visit: HYPONATREMIA/COPD Current Active Problems COPD exacerbation (Acute) Hyponatremia (Acute) Condition: Improved - Instructions Diet, Activity, Other Instructions: Return to the emergency department for any new or worsening symptoms. Referrals: Chandana Hines MD [Primary Care Provider] - Disposition: HOME - Home Medications Comprehensive Discharge Medication List: Ambulatory Orders Escitalopram Oxalate [Lexapro -] 30 mg PO DAILY 04/29/14 Alprazolam [Xanax] 1 mg PO BID 11/19/14 Bupropion HCl [Wellbutrin Xl -] 300 mg PO DAILY 06/14/15 Risperidone 2 mg PO BID 11/24/15 Zolpidem Tartrate [Ambien] 10 mg PO HS 11/25/15 Lisinopril 10 mg PO DAILY 10/28/16 Ezetimibe [Zetia -] 10 mg PO HS tablet 10/30/16 Clopidogrel Bisulfate [Plavix -] 75 mg PO DAILY 04/23/17 Albuterol Sulfate Inhaler - [Ventolin HFA Inhaler -] 2 inh PO Q4H PRN #1 inh Budesonide/Formeterol Fumarate [SYMBICORT 160/4.5mcg -] 2 puff IH BID #1 inhaler 04/27/17 predniSONE [Deltasone -] 4 mg PO DAILY 11/16/17 Albuterol 0.083% Nebulizer Aletha [Ventolin 0.083% Nebulizer Soln -] 1 neb NEB Q6H PRN 12/30/17 Tiotropium [place] [Spiriva] 2 puff IH DAILY 12/30/17 This patient is new to me today: Yes Date on this admission: 01/01/18 Emergency Visit: Yes ED Registration Date: 12/30/17 Care time: The patient presented to the Emergency Department on the above date and was hospitalized for further evaluation of their emergent condition. Critical Care patient: No - Discharge Referral Referred to [facility] Med [facility] No
[2018-01-01] MEDS ORDERED: PT OWN MED DRAWER 7, Y5N ONE (10:08)
[2018-01-01] MEDS: ESCITALOPRAM OXALATE 20 MG TABLET (FP) PO SCH (10:40)
[2018-01-01] MEDS: ALPRAZolam 0.25 MG TABLET PO SCH (10:41)
[2018-01-01] MEDS: risperiDONE 1 MG TABLET (FP) PO SCH (10:42)
[2018-01-01] MEDS: LISINOPRIL 10 MG TABLET (FP) PO SCH (10:43)
[2018-01-01] MEDS: PANTOPRAZOLE 40 MG TABLET (FP) PO SCH (10:43)
[2018-01-01] MEDS: ASPIRIN COATED 81 MG TABLET.EC PO SCH (10:43)
[2018-01-01] MEDS: CLOPIDOGREL BISULFATE 75 MG TABLET (FP) PO SCH (10:43)
[2018-01-01] MEDS: TIOTROPIUM BROMIDE 2.5 MCG (SPIRIVA) RESPIMAT INHALER IH SCH (10:44)
[2018-01-01] MEDS: BUDESONIDE/FORMETEROL FUMARATE 160/4.5 mcg INHALER IH SCH (10:44)
[2018-01-01] MEDS ORDERED: MAGNESIUM OXIDE 400 MG TABLET (FP) PO ONE (12:00)
[2018-01-01] MEDS ORDERED: predniSONE 20 MG TABLET (UD) PO ONE (12:00)
== END 2018-01-01 12:19 | disposition home or self-care (01) ==
LOC: FER 16:47 → FM/S 18:55
PROVIDERS: ADMIT Hospitalist; ATTEND Nurse Practitioner Acute Care
PROC: 3E033NZ Introduction of Analgesics, Hypnotics, Sedatives into Peripheral Vein, Percutaneous Approach (ICD-10-PCS; principal; 2017-12-30)
PROC: 3E0337Z Introduction of Electrolytic and Water Balance Substance into Peripheral Vein, Percutaneous Approach (ICD-10-PCS; 2017-12-30)
PROC: 3E013GC Introduction of Other Therapeutic Substance into Subcutaneous Tissue, Percutaneous Approach (ICD-10-PCS; 2017-12-30)
PROC: 3E0F7GC Introduction of Other Therapeutic Substance into Respiratory Tract, Via Natural or Artificial Opening (ICD-10-PCS; 2017-12-30)
DX: J44.1 Chronic obstructive pulmonary disease with (acute) exacerbation (principal); E87.1 Hypo-osmolality and hyponatremia; I25.10 Atherosclerotic heart disease of native coronary artery without angina pectoris; F41.9 Anxiety disorder, unspecified; F32.9 Major depressive disorder, single episode, unspecified; I25.2 Old myocardial infarction; I10 Essential (primary) hypertension; E78.5 Hyperlipidemia, unspecified; G24.01 Drug induced subacute dyskinesia; K21.9 Gastro-esophageal reflux disease without esophagitis; R41.3 Other amnesia; F10.10 Alcohol abuse, uncomplicated; Z86.79 Personal history of other diseases of the circulatory system; Z87.891 Personal history of nicotine dependence; Z95.5 Presence of coronary angioplasty implant and graft; Z98.890 Other specified postprocedural states
CPT/HCPCS: 36415; 71046-TC-FY; 80048; 80053; 81003; 82550; 82803; 82962; 83735; 83880; 83930; 83935; 84100; 84300; 84484; 85025; 85610; 93005; 94640; 96372; 96374; 96376; 99285-25; G0378; J1644; J2794; J7030; J7620

== ENCOUNTER 2018-01-29 18:19 | Emergency (ER) | payer OTHER, BC ==
[2018-01-29 18:24] VITALS: BP 133/97; PULSE 88; TEMP 98.1; BMI 27.7
== END 2018-01-29 18:55 | disposition left against medical advice (07) ==
LOC: FER 18:19
DX: Z53.21 Procedure and treatment not carried out due to patient leaving prior to being seen by health care provider (principal)
CPT/HCPCS: 99281-25

== ENCOUNTER 2018-03-30 10:55 | Emergency (ER) | payer OTHER, BC ==
[2018-03-30] MEDS ORDERED: MAG HYDROX/AL HYDROX/SIMETH 30 ML UNIT-DOSE CUP PO ONE (11:25)
[2018-03-30] MEDS ORDERED: FAMOTIDINE 20 MG/50 ML IVPB 20 MG/50 ML MG IVPB ONE ×2 (11:25→12:20)
--- NOTE | 2018-03-30 11:25 | PDOC ---
History of Present Illness - General Chief Complaint: Shortness of Breath Stated Complaint: SHORT OF BREATH Time Seen by Provider: 03/30/18 11:13 - History of Present Illness Initial Comments: 03/30/18 11:28 73 M with h/o COPD, HTN, hLD, Chronic Hyponatremia, GERD, Anemia, Tardive Dyskensia, Anxiety, Depression, presenting to ED with SOB and nausea. Pt states that it began 3 days ago with dry cough and SOB. Pt states that this is consistent with his typical COPD flares. He took his spiriva with minimal improvement. Pt denies F/C. Denies CP. Denies abdominal pain but endorses nausea with one episode of vomiting. Denies diarrhea. Denies leg swelling. Past History - Past Medical History Allergies/Adverse Reactions: Allergies Allergy/AdvReac Type Severity Reaction Status Date / Time No Known Allergies Allergy Verified 03/30/18 11:19 Home Medications: Ambulatory Orders Escitalopram Oxalate [Lexapro -] 30 mg PO DAILY 04/29/14 Alprazolam [Xanax] 1 mg PO BID 11/19/14 Bupropion HCl [Wellbutrin Xl -] 300 mg PO DAILY 06/14/15 Risperidone 2 mg PO BID 11/24/15 Lisinopril 10 mg PO DAILY 10/28/16 Ezetimibe [Zetia -] 10 mg PO HS tablet 10/30/16 Clopidogrel Bisulfate [Plavix -] 75 mg PO DAILY 04/23/17 Albuterol Sulfate Inhaler - [Ventolin HFA Inhaler -] 2 inh PO Q4H PRN #1 inh Budesonide/Formeterol Fumarate [SYMBICORT 160/4.5mcg -] 2 puff IH BID #1 inhaler 04/27/17 predniSONE [Deltasone -] 4 mg PO DAILY 11/16/17 Albuterol 0.083% Nebulizer Aletha [Ventolin 0.083% Nebulizer Soln -] 1 neb NEB Q6H PRN 12/30/17 Tiotropium [place] [Spiriva] 2 inh IH DAILY #30 cap.w.dev 01/22/18 Anemia: No Asthma: No Cancer: No Cardiac Disorders: Yes (cardiac [id number], history of [place] 2005) CVA: No COPD: Yes CHF: No DVT: No Dementia: (FORGETFUL) Diabetes: No GI Disorders: Yes (HEARTBURN) Disorders: No HTN: Yes Hypercholesterolemia: Yes Liver Disease: No Psychiatric Problems: Yes Seizures: No Thyroid Disease: No - Surgical History Abdominal Surgery: Yes (AAA 02/03/2017) Appendectomy: No Cardiac Surgery: Yes (cardiac stent 2005 & 04/2017) Cholecystectomy: No Lung Surgery: No Neurologic Surgery: No Orthopedic Surgery: No - Suicide/Smoking/Psychosocial Hx Smoking Status: No Smoking History: Unknown if ever smoked Have you smoked in the past 12 months: No Number of Cigarettes Smoked Daily: 0 If you are a former smoker, when did you quit?: 2006 Hx Alcohol Use: Yes Drug/Substance Use Hx: No Substance Use Type: Alcohol Hx Substance Use Treatment: No Review of Systems - Review of Systems Comments:: 03/30/18 11:32 GENERAL/CONSTITUTIONAL: No fever or chills. No weakness. HEAD, EYES, EARS, NOSE AND THROAT: No change in vision. No ear pain or discharge. No sore throat. CARDIOVASCULAR: No chest pain, no shortness of breath, no loss of consciousness RESPIRATORY: + SOB, No cough, wheezing, or hemoptysis. GASTROINTESTINAL: + nausea, + vomiting, no diarrhea or constipation. GENITOURINARY: No dysuria, frequency, or change in urination. MUSCULOSKELETAL: No joint or muscle swelling or pain. No neck or back pain. SKIN: No rash NEUROLOGIC: No vertigo, no change in strength/sensation. ENDOCRINE: No increased thirst. No abnormal weight change. HEMATOLOGIC/LYMPHATIC: No anemia, easy bleeding, or history of blood clots. ALLERGIC/IMMUNOLOGIC: No hives or skin allergy. *Physical Exam - Physical Exam Comments: 03/30/18 11:33 GENERAL: Awake, alert, and fully oriented, in no acute distress. HEAD: No signs of trauma EYES: PERRLA, EOMI, sclera anicteric, conjunctiva clear ENT: Auricles normal inspection, hearing grossly normal, nares patent, oropharynx clear without exudates. Moist mucosa NECK: Nontender, no stepoffs, Normal ROM, supple, no lymphadenopathy, JVD, or masses LUNGS: + expiratory wheezes, no rhonchi or rales HEART: Regular rate and rhythm, normal S1 and S2, no murmurs, rubs or gallops ABDOMEN: + mild epigastric TTP, normoactive bowel sounds. No guarding, no rebound. No masses EXTREMITIES: Normal range of motion, no edema. No clubbing or cyanosis. No cords, erythema, or tenderness NEUROLOGICAL: Cranial nerves II through XII intact. 5/5 strength and sensation in all extremities, Normal speech, normal gait, normal cerebellar function SKIN: Warm, Dry, normal turgor, no rashes or lesions noted. ED Treatment Course - LABORATORY CBC & Chemistry Diagram: 03/30/18 12:10 03/30/18 12:17 - RADIOLOGY Radiology Studies Ordered: Category Date Time Status CHEST PA & LAT [RAD] Stat Radiology 03/30/18 11:24 Ordered Medical Decision Making - Medical Decision Making 03/30/18 11:33 73 M with SOB and N+V. Likely COPD exacerbation as pt with expiratory wheezes on exam. Pt also complaining of nausea and vomiting x 1. Pt with no complaint of abdominal pain but mild epigastric TTP, suggestive of gastritis vs PUD. Pt with no lower abdominal tenderness, negative yen's. - Labs, VBG, lipase - CXR - Nebs - GI cocktail 03/30/18 13:44 Labs notable for Na 126. Pt without any symptoms. This is likely chronic. Pt with normal neuro exam. Pt reassessed after nebs - now with clear lungs. Denies any SOB. Also denies any nausea at this time, tolerating PO. Benign abdominal exam at this time. Pt is well appearing, with normal vitals. Clinically stable for DC at this time. I discussed the physical exam findings, ancillary test results and final diagnoses with the patient. I answered all of the patient's questions. The patient was satisfied with the care received and felt comfortable with the discharge plan and treatment plan. The patient agrees to follow up with the primary care physician within 24-72 hours. *DC/Admit/Observation/Transfer Diagnosis at time of Disposition: Hyponatremia, COPD exacerbation - Discharge Dispostion Disposition: HOME Condition at time of disposition: Good - Referrals Referrals: Chandu Hogan MD [Primary Care Provider] - - Patient Instructions Printed Discharge Instructions: DI for Hyponatremia Additional Instructions: Your sodium level was low today. You must have this checked by your primary doctor within 1 week to make sure it does not drop any lower. In the mean time, do not drink too much water. If you experience headaches, confusion, lethargy, or any other concerning symptoms, return to the ER immediately. - Post Discharge Activity - Attestations Physician Attestion: 03/30/18 13:47 I, Dr. Mack Salinas MD, attest that this document has been prepared under my direction and personally reviewed by me in its entirety. I further attest, that it accurately reflects all work, treatment, procedures and medical decision -making performed by me.
[2018-03-30 11:34] VITALS: BP 133/72; PULSE 65; TEMP 97.6; BMI 27.7
[2018-03-30] MEDS ORDERED: MAG HYDROX/AL HYDROX/SIMETH 30 ML UNIT-DOSE CUP ONE (12:20)
[2018-03-30] MEDS ORDERED: ALBUTEROL SO4 2.5/IPRATROPIUM 0.5 INH SOL 3 ML VIAL.NEB. NEB ONE (12:21)
[2018-03-30 12:27] LABS: BASO % 0.3 % (0-2.0); EOS % 2.5 % (0-4.5); HEMATOCRIT 35.5 % (35.4-49); HEMOGLOBIN 11.6 GM/dl (11.7-16.9); LYMPH % 17.4 % (8-40); MCH 31.2 pg (25.7-33.7); MCHC 32.8 g/dl (32.0-35.9); MEAN CELL VOLUME 95.2 fl (80-96); MEAN PLT VOLUME 6.7 fl (7.5-11.1); MONO % 10.3 % (3.8-10.2); NEUT % 69.5 % (42.8-82.8); PLATELET COUNT 343 K/MM3 (134-434); RBC 3.72 M/mm3 (4.00-5.60); RDW 12.2 % (11.9-15.9)
[2018-03-30] MEDS: ALBUTEROL SO4 2.5/IPRATROPIUM 0.5 INH SOL 3 ML VIAL.NEB. NEB SCH ×4 (12:29→13:19)
[2018-03-30 12:41] LABS: ALBUMIN 3.3 g/dl (3.5-5.0); ALK PHOS 77 U/L (32-92); ANION GAP 6 MMOL/L (8-16); BILIRUBIN,TOTAL 0.7 mg/dl (0.2-1.0); BLOOD UREA NITROGEN 13 mg/dl (7-18); CALCIUM 8.6 mg/dl (8.4-10.2); CHLORIDE 96 mmol/L (98-107); CO2 24 mmol/L (22-28); CREATININE 1.2 mg/dl (0.6-1.3); GLUCOSE,RANDOM 100 mg/dl (74-106); POTASSIUM 4.1 mmol/L (3.5-5.1); SGOT/AST 17 U/L (10-42); SGPT/ALT 13 U/L (10-40); SODIUM 126 mmol/L (136-145); TOT PROT 5.8 g/dl (6.4-8.3)
[2018-03-30 13:00] LABS: VENOUS PC02 38.1 mmHg (38-52); VENOUS PH 7.43 (7.32-7.42); VENOUS PO2 44.7 mmHg (28-48)
[2018-03-30 13:13] LABS: N-TERMINAL BNP 136.1 pg/ml (5-125)
--- NOTE | 2018-04-02 23:52 | EKG ---
Test Reason : Blood Pressure : / mmHG Vent. Rate : 062 BPM Atrial Rate : 062 BPM P-R Int : 200 ms QRS Dur : 094 ms QT Int : 428 ms P-R-T Axes : 026 -29 016 degrees QTc Int : 434 ms NORMAL SINUS RHYTHM INFERIOR INFARCT (CITED ON OR BEFORE 21-AUG-2016) ABNORMAL ECG WHEN COMPARED WITH ECG OF 30-DEC-2017 17:24, NO SIGNIFICANT CHANGE WAS FOUND Confirmed by BALJIT EVANS, JARED ([id number]) on 04/02/2018 11:52:15 PM Referred By: ROBERT Confirmed By:JARED SMILEY MD
== END 2018-03-30 13:00 | disposition home or self-care (01) ==
LOC: SUPCPDRO 10:55 → FER 10:55
PROC: 3E0F7GC Introduction of Other Therapeutic Substance into Respiratory Tract, Via Natural or Artificial Opening (ICD-10-PCS; principal; 2018-03-30)
PROC: 3E033GC Introduction of Other Therapeutic Substance into Peripheral Vein, Percutaneous Approach (ICD-10-PCS; 2018-03-30)
DX: E87.1 Hypo-osmolality and hyponatremia (principal); J44.1 Chronic obstructive pulmonary disease with (acute) exacerbation
CPT/HCPCS: 36415; 71046-TC-FY; 80053; 82550; 82803; 83690; 83880; 84484; 85025; 93005; 94640; 96365; 99283-25

== ENCOUNTER 2018-04-24 15:16 | Emergency (ER) | payer OTHER, BC ==
[2018-04-24] MEDS ORDERED: ALPRAZolam 1 MG TABLET PO PRN (15:20)
--- NOTE | 2018-04-24 15:22 | PDOC ---
History of Present Illness - General Chief Complaint: RX Refill Stated Complaint: ran out of xanax Time Seen by Provider: 04/24/18 15:17 - History of Present Illness Initial Comments: 04/24/18 15:34 The patient is a 73 year old male, with a significant past medical history of COPD, HTN, hLD, Chronic Hyponatremia, GERD, Anemia, Tardive Dyskinesia, Anxiety , Depression, who presents to the emergency department for med refill. As per patient, he has not taken his Xanax in 3 days because he ran out of pills and the pharmacy will not allow a refill until 04/27. Patient states that he called his doctor, who was unable to move his refill date earlier. The patient has no other complaints. He denies tremors or anxiety. He denies any recent fevers, chills, headache or dizziness. He denies any recent nausea, vomit, diarrhea or constipation. He denies any recent chest pain or shortness of breath. He denies any recent dysuria, frequency, urgency or hematuria. Allergies: NKDA Past History - Past Medical History Allergies/Adverse Reactions: Allergies Allergy/AdvReac Type Severity Reaction Status Date / Time No Known Allergies Allergy Verified 04/24/18 15:18 Home Medications: Ambulatory Orders Escitalopram Oxalate [Lexapro -] 30 mg PO DAILY 04/29/14 Alprazolam [Xanax] 1 mg PO BID 11/19/14 Bupropion HCl [Wellbutrin Xl -] 300 mg PO DAILY 06/14/15 Risperidone 2 mg PO BID 11/24/15 Lisinopril 10 mg PO DAILY 10/28/16 Ezetimibe [Zetia -] 10 mg PO HS tablet 10/30/16 Clopidogrel Bisulfate [Plavix -] 75 mg PO DAILY 04/23/17 Albuterol Sulfate Inhaler - [Ventolin HFA Inhaler -] 2 inh PO Q4H PRN #1 inh Budesonide/Formeterol Fumarate [SYMBICORT 160/4.5mcg -] 2 puff IH BID #1 inhaler 04/27/17 predniSONE [Deltasone -] 4 mg PO DAILY 11/16/17 Albuterol 0.083% Nebulizer Aletha [Ventolin 0.083% Nebulizer Soln -] 1 neb NEB Q6H PRN 12/30/17 Tiotropium [place] [Spiriva] 2 inh IH DAILY #30 cap.w.dev 01/22/18 Alprazolam [Xanax] 1 mg PO Q12H #6 tablet MDD 2 tabs 04/24/18 Anemia: No Asthma: No Cancer: No Cardiac Disorders: Yes (cardiac [id number], history of [place] 2005) CVA: No COPD: Yes CHF: No DVT: No Dementia: (FORGETFUL) Diabetes: No GI Disorders: Yes (HEARTBURN) Disorders: No HTN: Yes Hypercholesterolemia: Yes Liver Disease: No Psychiatric Problems: Yes Seizures: No Thyroid Disease: No - Surgical History Abdominal Surgery: Yes (AAA 02/03/2017) Appendectomy: No Cardiac Surgery: Yes (cardiac stent 2005 & 04/2017) Cholecystectomy: No Lung Surgery: No Neurologic Surgery: No Orthopedic Surgery: No - Suicide/Smoking/Psychosocial Hx Smoking Status: No Smoking History: Unknown if ever smoked Have you smoked in the past 12 months: No Number of Cigarettes Smoked Daily: 0 If you are a former smoker, when did you quit?: 2005 Hx Alcohol Use: Yes Drug/Substance Use Hx: No Substance Use Type: Alcohol Hx Substance Use Treatment: No Review of Systems - Review of Systems Comments:: 04/24/18 15:22 "GENERAL/CONSTITUTIONAL: No fever or chills. No weakness. HEAD, EYES, EARS, NOSE AND THROAT: No change in vision. No ear pain or discharge. No sore throat. CARDIOVASCULAR: No chest pain, no shortness of breath, no loss of consciousness RESPIRATORY: No cough, wheezing, or hemoptysis. GASTROINTESTINAL: No nausea, vomiting, diarrhea or constipation. GENITOURINARY: No dysuria, frequency, or change in urination. MUSCULOSKELETAL: No joint or muscle swelling or pain. No neck or back pain. SKIN: No rash NEUROLOGIC: No vertigo, no change in strength/sensation. ENDOCRINE: No increased thirst. No abnormal weight change. HEMATOLOGIC/LYMPHATIC: No anemia, easy bleeding, or history of blood clots. ALLERGIC/IMMUNOLOGIC: No hives or skin allergy. *Physical Exam - Physical Exam Comments: 04/24/18 15:22 "GENERAL: Awake, alert, and fully oriented, in no acute distress. HEAD: No signs of trauma EYES: PERRLA, EOMI, sclera anicteric, conjunctiva clear ENT: Auricles normal inspection, hearing grossly normal, nares patent, oropharynx clear without exudates. Moist mucosa NECK: Nontender, no stepoffs, Normal ROM, supple, no lymphadenopathy, JVD, or masses LUNGS: Breath sounds equal, clear to auscultation bilaterally. No wheezes, and no crackles HEART: Regular rate and rhythm, normal S1 and S2, no murmurs, rubs or gallops ABDOMEN: Soft, nontender, normoactive bowel sounds. No guarding, no rebound. No masses EXTREMITIES: Normal range of motion, no edema. No clubbing or cyanosis. No cords, erythema, or tenderness NEUROLOGICAL: Cranial nerves II through XII intact. 5/5 strength and sensation in all extremities, Normal speech, normal gait, normal cerebellar function SKIN: Warm, Dry, normal turgor, no rashes or lesions noted. Medical Decision Making - Medical Decision Making 04/24/18 15:21 73 M presenting to ED because he ran out of Xanax. Pt's last dose was several days ago. Pt is not exhibiting any signs of benzo withdrawal. - Home dose xanax 1mg PO - Call pharmacy to determine issue with prescription 04/24/18 15:35 Spoke with [facility] pharmacy, who report that pt last filled 30 day supply of xanax on 03/31. They are unable to refill his prescription more than 3 days early (). Will send script for 3 days of xanax 1mg BID, which is what pt is usually prescribed Pt is well appearing, with normal vitals. Clinically stable for DC at this time. I discussed the physical exam findings, ancillary test results and final diagnoses with the patient. I answered all of the patient's questions. The patient was satisfied with the care received and felt comfortable with the discharge plan and treatment plan. The patient agrees to follow up with the primary care physician within 24-72 hours. 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 You are being given a 3 day prescription until you are able to fill your usual prescription on 04/27. Follow up with your primary doctor within 1 week. - Post Discharge Activity - Attestations Physician Attestion: 04/24/18 15:37 I, Dr. Mack Salinas MD, attest that this document has been prepared under my direction and personally reviewed by me in its entirety. I further attest, that it accurately reflects all work, treatment, procedures and medical decision -making performed by me.
[2018-04-24 15:24] VITALS: BMI 27.7
[2018-04-24 15:28] VITALS: BP 138/80; PULSE 59; TEMP 97.5
[2018-04-24] MEDS ORDERED: ALPRAZolam 0.25 MG TABLET ONE (15:29)
[2018-04-24] MEDS ORDERED: FAMOTIDINE 20 MG TABLET PO ONE (16:02)
[2018-04-24] MEDS ORDERED: MAG HYDROX/AL HYDROX/SIMETH 30 ML UNIT-DOSE CUP PO ONE (16:02)
[2018-04-24] MEDS ORDERED: MAG HYDROX/AL HYDROX/SIMETH 30 ML UNIT-DOSE CUP ONE (16:04)
[2018-04-24] MEDS ORDERED: FAMOTIDINE 20 MG TABLET ONE (16:04)
== END 2018-04-24 16:42 | disposition home or self-care (01) ==
LOC: FER 15:16
DX: J44.9 Chronic obstructive pulmonary disease, unspecified (principal); I10 Essential (primary) hypertension; E78.5 Hyperlipidemia, unspecified; E87.1 Hypo-osmolality and hyponatremia; G24.01 Drug induced subacute dyskinesia; F41.8 Other specified anxiety disorders
CPT/HCPCS: 99281-25

== ENCOUNTER 2018-05-22 23:39 | Emergency (ER) | payer OTHER, BC ==
[2018-05-22] MEDS ORDERED: ONDANSETRON 4 MG TABLET PO ONE (23:59)
[2018-05-22] MEDS ORDERED: MAG HYDROX/AL HYDROX/SIMETH 30 ML UNIT-DOSE CUP PO ONE (23:59)
[2018-05-22] MEDS ORDERED: FAMOTIDINE 20 MG TABLET PO ONE (23:59)
[2018-05-23] MEDS ORDERED: MAG HYDROX/AL HYDROX/SIMETH 30 ML UNIT-DOSE CUP ONE
[2018-05-23] MEDS ORDERED: FAMOTIDINE 20 MG TABLET ONE (00:01)
[2018-05-23] MEDS ORDERED: ONDANSETRON *ODT* 4 MG TABLET ONE (00:01)
[2018-05-23 00:23] VITALS: TEMP 100; BMI 28.5
[2018-05-23] MEDS ORDERED: ACETAMINOPHEN 500 MG TABLET (FP) PO ONE (00:24)
[2018-05-23] MEDS ORDERED: ACETAMINOPHEN 500 MG TABLET (FP) ONE (00:32)
[2018-05-23] MEDS ORDERED: LIDOCAINE VISCOUS 2% ORAL/TOP 20 ML UNIT-DOSE CUP MM ONE (02:09)
[2018-05-23] MEDS ORDERED: LIDOCAINE VISCOUS 2% ORAL/TOP 20 ML UNIT-DOSE CUP ONE (02:25)
[2018-05-23] MEDS ORDERED: ONDANSETRON 4 MG/2 ML VIAL IVPB ONE (02:40)
[2018-05-23] MEDS ORDERED: SODIUM CHLORIDE 1,000 ML IV STA (02:40)
[2018-05-23] MEDS ORDERED: ONDANSETRON 4 MG/2 ML VIAL ONE (03:14)
--- NOTE | 2018-05-23 03:23 | PDOC ---
History of Present Illness - General Chief Complaint: Respiratory Stated Complaint: COUGH/FEVER Time Seen by Provider: 05/22/18 23:43 - History of Present Illness Initial Comments: 05/23/18 03:24 73 M with h/o COPD, HTN, HLD, Chronic Hyponatremia, GERD, Anemia, Tardive Dyskinesia, Anxiety, Depression, presenting to ED with several days of cough. Pt endorses subjective fevers, denies chills. Denies CP/SOB. States that his cough is productive of white sputum. Denies any orthopnea, denies POWELL, denies leg swelling. Pt also complains of "upset stomach", which he notes is a chronic issue. Denies vomiting or diarrhea. Denies constipation. Past History - Past Medical History Allergies/Adverse Reactions: Allergies Allergy/AdvReac Type Severity Reaction Status Date / Time No Known Allergies Allergy Verified 04/24/18 15:18 Home Medications: Ambulatory Orders Escitalopram Oxalate [Lexapro -] 30 mg PO DAILY 04/29/14 Alprazolam [Xanax] 1 mg PO BID 11/19/14 Bupropion HCl [Wellbutrin Xl -] 300 mg PO DAILY 06/14/15 Risperidone 2 mg PO BID 11/24/15 Lisinopril 10 mg PO DAILY 10/28/16 Ezetimibe [Zetia -] 10 mg PO HS tablet 10/30/16 Clopidogrel Bisulfate [Plavix -] 75 mg PO DAILY 04/23/17 Albuterol Sulfate Inhaler - [Ventolin HFA Inhaler -] 2 inh PO Q4H PRN #1 inh Budesonide/Formeterol Fumarate [SYMBICORT 160/4.5mcg -] 2 puff IH BID #1 inhaler 04/27/17 predniSONE [Deltasone -] 4 mg PO DAILY 11/16/17 Albuterol 0.083% Nebulizer Aletha [Ventolin 0.083% Nebulizer Soln -] 1 neb NEB Q6H PRN 12/30/17 Tiotropium [place] [Spiriva] 2 inh IH DAILY #30 cap.w.dev 01/22/18 Alprazolam [Xanax] 1 mg PO Q12H #6 tablet MDD 2 tabs 04/24/18 Anemia: No Asthma: No Cancer: No Cardiac Disorders: Yes (cardiac [id number], history of [place] 2005) CVA: No COPD: Yes CHF: No DVT: No Dementia: (FORGETFUL) Diabetes: No GI Disorders: Yes (HEARTBURN) Disorders: No HTN: Yes Hypercholesterolemia: Yes Liver Disease: No Psychiatric Problems: Yes Seizures: No Thyroid Disease: No - Surgical History Abdominal Surgery: Yes (AAA 02/03/2017) Appendectomy: No Cardiac Surgery: Yes (cardiac stent 2005 & 04/2017) Cholecystectomy: No Lung Surgery: No Neurologic Surgery: No Orthopedic Surgery: No - Suicide/Smoking/Psychosocial Hx Smoking Status: No Smoking History: Never smoked Have you smoked in the past 12 months: No Number of Cigarettes Smoked Daily: 0 If you are a former smoker, when did you quit?: 2005 Information on smoking cessation initiated: No Hx Alcohol Use: No Drug/Substance Use Hx: No Substance Use Type: Alcohol Hx Substance Use Treatment: No Review of Systems - Review of Systems Comments:: 05/23/18 03:28 GENERAL/CONSTITUTIONAL: No fever or chills. No weakness. HEAD, EYES, EARS, NOSE AND THROAT: No change in vision. No ear pain or discharge. No sore throat. CARDIOVASCULAR: No chest pain, no shortness of breath, no loss of consciousness RESPIRATORY: + cough, no wheezing, or hemoptysis. GASTROINTESTINAL: + "upset stomach", No nausea, vomiting, diarrhea or constipation. GENITOURINARY: No dysuria, frequency, or change in urination. MUSCULOSKELETAL: No joint or muscle swelling or pain. No neck or back pain. SKIN: No rash NEUROLOGIC: No vertigo, no change in strength/sensation. ENDOCRINE: No increased thirst. No abnormal weight change. HEMATOLOGIC/LYMPHATIC: No anemia, easy bleeding, or history of blood clots. ALLERGIC/IMMUNOLOGIC: No hives or skin allergy. *Physical Exam - Vital Signs Last Vital Signs Temp Pulse Resp BP Pulse Ox 100 F H 20 116/79 95 05/23/18 00:20 05/23/18 00:20 05/23/18 00:20 05/23/18 00:20 - Physical Exam Comments: 05/23/18 03:28 GENERAL: Awake, alert, and fully oriented, in no acute distress. HEAD: No signs of trauma EYES: PERRLA, EOMI, sclera anicteric, conjunctiva clear ENT: Auricles normal inspection, hearing grossly normal, nares patent, oropharynx clear without exudates. Moist mucosa NECK: Nontender, no stepoffs, Normal ROM, supple, no lymphadenopathy, JVD, or masses LUNGS: Breath sounds equal, clear to auscultation bilaterally. No wheezes, and no crackles HEART: Regular rate and rhythm, normal S1 and S2, no murmurs, rubs or gallops ABDOMEN: Soft, nontender, normoactive bowel sounds. No guarding, no rebound. No masses EXTREMITIES: Normal range of motion, no edema. No clubbing or cyanosis. No cords, erythema, or tenderness NEUROLOGICAL: Cranial nerves II through XII intact. 5/5 strength and sensation in all extremities, Normal speech, normal gait, normal cerebellar function SKIN: Warm, Dry, normal turgor, no rashes or lesions noted. Moderate Sedation - Procedure Monitoring Vital Signs: Procedure Monitoring Vital Signs Temperature 100 F H 05/23/18 00:20 Pulse Rate Respiratory Rate 20 05/23/18 00:20 Blood Pressure 116/79 05/23/18 00:20 O2 Sat by Pulse Oximetry (%) 95 05/23/18 00:20 ED Treatment Course - LABORATORY CBC & Chemistry Diagram: 05/23/18 03:00 05/23/18 03:00 - RADIOLOGY Radiology Studies Ordered: Category Date Time Status CHEST X-RAY PORTABLE* [RAD] Stat Radiology 05/23/18 00:22 Taken - Medications Given in the ED: ED Medications Discontinued Medications Generic Name Dose Route Start Last Admin Trade Name Freq PRN Reason Stop Dose Admin Acetaminophen 1,000 mg 05/23/18 00:24 05/23/18 00:32 Tylenol - PO 05/23/18 00:25 1,000 mg ONCE ONE Administration Al Hydroxide/Mg Hydroxide 30 ml 05/22/18 23:59 05/23/18 00:18 Mylanta Oral Suspension - PO 05/23/18 00:00 30 ml ONCE ONE Administration Famotidine 20 mg 05/22/18 23:59 05/23/18 00:19 Pepcid - PO 05/23/18 00:00 20 mg ONCE ONE Administration Lidocaine HCl 20 ml 05/23/18 02:09 05/23/18 02:28 Xylocaine 2% Viscous Oral - MM 05/23/18 02:10 20 ml ONCE ONE Administration Ondansetron HCl 4 mg 05/22/18 23:59 05/23/18 00:18 Zofran - PO 05/23/18 00:00 4 mg ONCE ONE Administration Ondansetron HCl 4 mg 05/23/18 02:40 05/23/18 03:13 Zofran Injection IVPB 05/23/18 02:41 4 mg ONCE ONE Administration Medical Decision Making - Medical Decision Making 05/23/18 03:28 73 M with cough and fevers, found to be low-grade febrile in ED with temp 100. Pt with clear lungs, no wheezing, no rales to suggest PNA. Will obtain CXR given cough. Also r/o influenza. Pt also complaining of "upset stomach" but has completely benign abdominal exam. - Labs - CXR - Flu swab - GI cocktail 05/23/18 03:33 CXR clear flu swab negative 05/23/18 04:08 Labs thus far wnl Cr 1.7, pt's baseline 05/23/18 04:13 Pt reassessed - feels significantly better s/p GI cocktail Suspect viral illness. No evidence of PNA. Flu negative. UA unremarkable. Pt is well appearing, with normal vitals. Clinically stable for DC at this time. I discussed the physical exam findings, ancillary test results and final diagnoses with the patient. I answered all of the patient's questions. The patient was satisfied with the care received and felt comfortable with the discharge plan and treatment plan. The patient agrees to follow up with the primary care physician within 24-72 hours. *DC/Admit/Observation/Transfer Diagnosis at time of Disposition: Cough - Discharge Dispostion Condition at time of disposition: Stable - Referrals Referrals: Chandu Hogan MD [Primary Care Provider] - - Patient Instructions Printed Discharge Instructions: DI for Acute Bronchitis Additional Instructions: Follow up with your primary doctor within 48 hours. If you experience worsening cough, chest pain, shortness of breath, abdominal pain, fevers, or any other concerning symptoms, return to the ER immediately. - Post Discharge Activity - Attestations Physician Attestion: 05/23/18 04:14 I, Dr. Mack Salinas MD, attest that this document has been prepared under my direction and personally reviewed by me in its entirety. I further attest, that it accurately reflects all work, treatment, procedures and medical decision -making performed by me.
[2018-05-23 03:46] LABS: BASO % 0.2 % (0-2.0); EOS % 0.2 % (0-4.5); HEMATOCRIT 43.4 % (35.4-49); HEMOGLOBIN 15.2 GM/dL (11.7-16.9); LYMPH % 1.2 % (8-40); MCH 32.9 pg (25.7-33.7); MCHC 34.9 g/dl (32.0-35.9); MEAN CELL VOLUME 94.1 fl (80-96); MEAN PLT VOLUME 7.5 fl (7.5-11.1); MONO % 4.6 % (3.8-10.2); NEUT % 93.8 % (42.8-82.8); PLATELET COUNT 304 K/MM3 (134-434); RBC 4.61 M/mm3 (4.00-5.60); RDW 13.5 % (11.9-15.9); WHITE BLOOD COUNT 9.3 K/mm3 (4.0-10.0)
[2018-05-23 04:05] LABS: ALBUMIN 3.4 g/dl (3.4-5.0); ALK PHOS 80 U/L (45-117); ANION GAP 8 MMOL/L (8-16); BILIRUBIN,TOTAL 0.3 mg/dL (0.2-1); BLOOD UREA NITROGEN 36 mg/dL (7-18); CALCIUM 8.8 mg/dL (8.5-10.1); CHLORIDE 99 mmol/L (98-107); CO2 26 mmol/L (21-32); CREATININE 1.7 mg/dL (0.55-1.3); GLUCOSE,RANDOM 118 mg/dL (74-106); POTASSIUM 5.3 mmol/L (3.5-5.1); SGOT/AST 14 U/L (15-37); SGPT/ALT 20 U/L (13-61); SODIUM 133 mmol/L (136-145); TOT PROT 6.4 g/dl (6.4-8.2)
[2018-05-23 04:13] LABS: URINE APPEARANCE CLEAR; URINE BILIRUBIN NEGATIVE (<2.0 mg/dL); URINE COLOR LTYELLOW; URINE GLUCOSE (UA) NEGATIVE (NEGATIVE); URINE KETONE NEGATIVE (NEGATIVE); URINE LEUK ESTERASE NEGATIVE (NEGATIVE); URINE NITRITE NEGATIVE (NEGATIVE); URINE PROTEIN NEGATIVE (NEGATIVE); URINE UROBILINOGEN NEGATIVE mg/dL (0.2-1.0)
[2018-05-23 04:15] VITALS: BP 107/53; PULSE 84
== END 2018-05-23 04:49 | disposition home or self-care (01) ==
LOC: FER 23:39
PROC: 3E033GC Introduction of Other Therapeutic Substance into Peripheral Vein, Percutaneous Approach (ICD-10-PCS; principal; 2018-05-22)
PROC: 3E0337Z Introduction of Electrolytic and Water Balance Substance into Peripheral Vein, Percutaneous Approach (ICD-10-PCS; 2018-05-22)
DX: R05 Cough (principal); I10 Essential (primary) hypertension; E78.5 Hyperlipidemia, unspecified; J44.9 Chronic obstructive pulmonary disease, unspecified; K21.9 Gastro-esophageal reflux disease without esophagitis; D64.9 Anemia, unspecified; I25.2 Old myocardial infarction; Z95.5 Presence of coronary angioplasty implant and graft; F41.9 Anxiety disorder, unspecified; F32.9 Major depressive disorder, single episode, unspecified
CPT/HCPCS: 36415; 71045-TC-FY; 80053; 81003; 85025; 87086; 87804; 99281-25; J7030

== ENCOUNTER 2018-09-09 14:42 | Observation (INO) | payer OTHER, BC ==
[2018-09-09] MEDS ORDERED: ALBUTEROL SO4 2.5/IPRATROPIUM 0.5 INH SOL 3 ML VIAL.NEB. NEB ONE ×2 (14:59→15:15)
[2018-09-09] MEDS ORDERED: methylPREDNISolone NA SUCC 125 MG/2 ML VIAL IVPB ONE (14:59)
[2018-09-09] MEDS ORDERED: methylPREDNISolone NA SUCC 40 MG/1 ML VIAL ONE (15:15)
[2018-09-09 15:32] LABS: BASO % 0.4 % (0-2.0); EOS % 2.8 % (0-4.5); HEMATOCRIT 41.6 % (35.4-49); HEMOGLOBIN 13.8 GM/dl (11.7-16.9); MCH 31.9 pg (25.7-33.7); MCHC 33.2 g/dl (32.0-35.9); MEAN CELL VOLUME 96.1 fl (80-96); MEAN PLT VOLUME 7.4 fl (7.5-11.1); MONO % 8.4 % (3.8-10.2); NEUT % 67.4 % (42.8-82.8); PLATELET COUNT 317 K/MM3 (134-434); RBC 4.33 M/mm3 (4.00-5.60); RDW 12.9 % (11.9-15.9); WHITE BLOOD COUNT 7.2 K/mm3 (4.0-10.8)
[2018-09-09 15:42] LABS: ALBUMIN 3.9 g/dl (3.4-5.0); ALK PHOS 70 U/L (45-117); ANION GAP 11 MMOL/L (8-16); BILIRUBIN,TOTAL 0.6 mg/dl (0.2-1); BLOOD UREA NITROGEN 20 mg/dl (7-18); CALCIUM 9.3 mg/dl (8.5-10); CHLORIDE 102 mmol/L (98-107); CO2 22 mmol/L (21-32); CREATININE 1.3 mg/dl (0.55-1.3); GLUCOSE,RANDOM 125 mg/dl (74-106); POTASSIUM 4.1 mmol/L (3.5-5.1); SGOT/AST 25 U/L (15-37); SGPT/ALT 14 U/L (13-61); SODIUM 135 mmol/L (136-145); TOT PROT 6.5 g/dl (6.4-8.2)
--- NOTE | 2018-09-09 16:33 | PDOC ---
Documentation entered by Hannah Padilla SCRIBE, acting as scribe for Jesus Chavez MD. Jesus Chavez MD: This documentation has been prepared by the kevineRandy Aiswarya, SCRIBE, under my direction and personally reviewed by me in its entirety. I confirm that the documentation accurately reflects all work, treatment, procedures, and medical decision making performed by me. History of Present Illness - General Chief Complaint: Shortness of Breath Stated Complaint: sob History Source: Patient Exam Limitations: No Limitations - History of Present Illness Initial Comments: 09/09/18 15:26 The patient is a 73 year old male, with a significant PMH of COPD, hyponatremia , cardiac stent 2005 , history of [place] in 2005, dementia, heartburn, HTN, and HLD , who presents to the emergency department complaining of SOB that began approximately 5 days ago. The patient states he was away at [place] when he first started to notice symptoms that progressively worsened today. The patient denies chest pain, headache and dizziness. Denies fever, chills, nausea , vomiting, diarrhea and constipation. Denies taking any medication for SOB. Allergies: NKDA Past surgical history:Abdominal (AAA 02/03/2017), Cardiac stent Social history: None reported PCP: None reported 09/09/18 15:30 Past History - Past Medical History Allergies/Adverse Reactions: Allergies Allergy/AdvReac Type Severity Reaction Status Date / Time No Known Allergies Allergy Verified 04/24/18 15:18 Home Medications: Ambulatory Orders Escitalopram Oxalate [Lexapro -] 30 mg PO DAILY 04/29/14 Alprazolam [Xanax] 1 mg PO BID 11/19/14 Bupropion HCl [Wellbutrin Xl -] 300 mg PO DAILY 06/14/15 Risperidone 2 mg PO BID 11/24/15 Lisinopril 10 mg PO DAILY 10/28/16 Ezetimibe [Zetia -] 10 mg PO HS tablet 10/30/16 Clopidogrel Bisulfate [Plavix -] 75 mg PO DAILY 04/23/17 Albuterol Sulfate Inhaler - [Ventolin HFA Inhaler -] 2 inh PO Q4H PRN #1 inh Budesonide/Formeterol Fumarate [SYMBICORT 160/4.5mcg -] 2 puff IH BID #1 inhaler 04/27/17 predniSONE [Deltasone -] 4 mg PO DAILY 11/16/17 Albuterol 0.083% Nebulizer Aletha [Ventolin 0.083% Nebulizer Soln -] 1 neb NEB Q6H PRN 12/30/17 Tiotropium [place] [Spiriva] 2 inh IH DAILY #30 cap.w.dev 01/22/18 Alprazolam [Xanax] 1 mg PO Q12H #6 tablet MDD 2 tabs 04/24/18 Anemia: No Asthma: No Cancer: No Cardiac Disorders: Yes (cardiac [id number], history of [place] 2005) CVA: No COPD: Yes CHF: No DVT: No Dementia: (FORGETFUL) Diabetes: No GI Disorders: Yes (HEARTBURN) Disorders: No HTN: Yes Hypercholesterolemia: Yes Liver Disease: No Psychiatric Problems: Yes Seizures: No Thyroid Disease: No - Surgical History Abdominal Surgery: Yes (AAA 02/03/2017) Appendectomy: No Cardiac Surgery: Yes (cardiac stent 2005 & 04/2017) Cholecystectomy: No Lung Surgery: No Neurologic Surgery: No Orthopedic Surgery: No - Suicide/Smoking/Psychosocial Hx Smoking Status: No Smoking History: Never smoked Have you smoked in the past 12 months: No Number of Cigarettes Smoked Daily: 0 If you are a former smoker, when did you quit?: 2005 Hx Alcohol Use: No Drug/Substance Use Hx: No Substance Use Type: Alcohol Hx Substance Use Treatment: No Review of Systems - Review of Systems Able to Perform ROS?: Yes Comments:: 09/09/18 15:26 GENERAL/CONSTITUTIONAL: No fever or chills. No weakness. HEAD, EYES, EARS, NOSE AND THROAT: No change in vision. No ear pain or discharge. No sore throat. CARDIOVASCULAR: No chest pain or shortness of breath. RESPIRATORY:+SOB No cough, wheezing, or hemoptysis. GASTROINTESTINAL: No nausea, vomiting, diarrhea or constipation. GENITOURINARY: No dysuria, frequency, or change in urination. MUSCULOSKELETAL: No joint or muscle swelling or pain. No neck or back pain. SKIN: No rash NEUROLOGIC: No headache, vertigo, loss of consciousness, or change in strength/ sensation. ENDOCRINE: No increased thirst. No abnormal weight change. HEMATOLOGIC/LYMPHATIC: No anemia, easy bleeding, or history of blood clots. ALLERGIC/IMMUNOLOGIC: No hives or skin allergy. *Physical Exam - Vital Signs Last Vital Signs Temp Pulse Resp BP Pulse Ox 97.8 F 109 H 30 H 131/91 97 09/09/18 14:42 09/09/18 14:42 09/09/18 14:42 09/09/18 14:42 09/09/18 14:42 - Physical Exam General Appearance: Yes: Nourished, Appropriately Dressed, Apparent Distress HEENT: positive: EOMI, CHARAN, Normal ENT Inspection, Other (tongue thrusting, hx of tardive dyskensia) Neck: positive: Trachea midline, Normal Thyroid, Supple. negative: Tender, Rigid Respiratory/Chest: negative: Chest Tender, Lungs Clear (occasional expiratory wheezing), Respiratory Distress, Accessory Muscle Use Cardiovascular: positive: Regular Rhythm, Regular Rate, S1, S2. negative: Edema , JVD, Murmur Vascular Pulses: Femoral (R): 4+, Femoral (L): 4+, Carotid (R): 4+, Carotid (L) : 4+, Dorsalis-Pedis (R): 4+, Doralis-Pedis (L): 4+ Gastrointestinal/Abdominal: positive: Normal Bowel Sounds, Flat, Soft. negative : Tender, Organomegaly Lymphatic: negative: Adenopathy, Tenderness, Other Musculoskeletal: positive: Normal Inspection. negative: CVA Tenderness Extremity: positive: Normal Capillary Refill, Normal Inspection, Normal Range of Motion Integumentary: positive: Normal Color, Dry, Warm Neurologic: positive: string studies director II-XII NML intact, Fully Oriented, Alert, Normal Mood/ Affect, Normal Response, Motor Strength 5/5 Heart Score/ECG Review - ECG Impressions Comment:: 09/09/18 16:23 Sinus rhythm with marked sinus arrhythmia. Left axis deviation. Minimal voltage criteria for LVH, may be normal variant Inferior infarct, age undetermined. Abnormal ECG. ED Treatment Course - LABORATORY CBC & Chemistry Diagram: 09/09/18 14:59 09/09/18 14:59 - ADDITIONAL ORDERS Additional order review: 09/09/18 16:33 Spoke with Hopsitalist admit to observation Dr. Byrne Dx: COPD Pt wishes to stay not feeing better CXR NAD poor inspiration *DC/Admit/Observation/Transfer Diagnosis at time of Disposition: COPD (chronic obstructive pulmonary disease) Qualifiers: COPD type: unspecified COPD Qualified Code(s): J44.9 - Chronic obstructive pulmonary disease, unspecified - Discharge Dispostion Condition at time of disposition: Fair Decision to Admit order: Yes - Referrals - Patient Instructions - Post Discharge Activity
[2018-09-09] MEDS ORDERED: ALBUTEROL SO4 0.083% IH SOL 2.5 MG/3 ML VIAL.NEB. NEB PRN (16:38)
[2018-09-09] MEDS ORDERED: ALBUTEROL SO4 8 GM HFA INHALER IH PRN (16:38)
[2018-09-09] MEDS ORDERED: ALBUTEROL SO4 2.5/IPRATROPIUM 0.5 INH SOL 3 ML VIAL.NEB. NEB PRN (16:40)
[2018-09-09] MEDS ORDERED: SODIUM CHLORIDE 1,000 ML IV SCH (16:45)
[2018-09-09 18:36] VITALS: BMI 27.8
[2018-09-09] MEDS ORDERED: MELATONIN 5 MG TABLETS PO PRN (20:58)
--- NOTE | 2018-09-09 21:05 | HP ---
Admitting History and Physical - Admission Chief Complaint: SOB History of Present Illness: This is a 73 y/o man with a PMHx of COPD, CAD, [place] s/p Stent (06), HTN, HLD, Dementia, GERD, Hyponatremia. Who presents to the ED with increased SOB x 5 days. Patient reports recent trip to [place] and when he returned he noted his symptoms has worsened. Patient denies fever, chills, dizziness, GONZALEZ, CP, palpitations, AP, N/V/D, constipation, dysuria. 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: Yes: Other (forgetfulness) Cardiovascular: Yes: CAD, HTN, Hyperlipdemia, NH Pulmonary: Yes: COPD Gastrointestinal: Yes: Other (umbilical hernia) Heme/Onc: Yes: Anemia Psych: Yes: Anxiety, Depression - Past Surgical History Past Surgical History: Yes: Stent - Smoking History Smoking history: Never smoked Have you smoked in the past 12 months: No Aproximately how many cigarettes per day: 0 If you are a former smoker, when did you quit?: 2006 - Alcohol/Substance Use Hx Alcohol Use: No History of Substance Use: reports: None - Social History Usual Living Arrangement: Yes: Alone ADL: Independent 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 History of Recent Travel: No Home Medications - Allergies Allergies/Adverse Reactions: Allergies Allergy/AdvReac Type Severity Reaction Status Date / Time No Known Allergies Allergy Verified 09/09/18 17:04 - Home Medications Home Medications: Ambulatory Orders Escitalopram Oxalate [Lexapro -] 30 mg PO DAILY 04/29/14 Alprazolam [Xanax] 1 mg PO BID 11/19/14 Bupropion HCl [Wellbutrin Xl -] 300 mg PO DAILY 06/14/15 Risperidone 2 mg PO BID 11/24/15 Lisinopril 10 mg PO DAILY 10/28/16 Ezetimibe [Zetia -] 10 mg PO HS tablet 10/30/16 Clopidogrel Bisulfate [Plavix -] 75 mg PO DAILY 04/23/17 Albuterol Sulfate Inhaler - [Ventolin HFA Inhaler -] 2 inh PO Q4H PRN #1 inh Budesonide/Formeterol Fumarate [SYMBICORT 160/4.5mcg -] 2 puff IH BID #1 inhaler 04/27/17 predniSONE [Deltasone -] 4 mg PO DAILY 11/16/17 Albuterol 0.083% Nebulizer Aletha [Ventolin 0.083% Nebulizer Soln -] 1 neb NEB Q6H PRN 12/30/17 Tiotropium [place] [Spiriva] 2 inh IH DAILY #30 cap.w.dev 01/22/18 Zolpidem Tartrate [Ambien] 10 mg PO HS 09/09/18 Family Disease History - Family Disease History Family History: Unable to Obtain Review of Systems - Review of Systems Constitutional: reports: No Symptoms Eyes: reports: No Symptoms HENT: reports: No Symptoms Neck: reports: No Symptoms Cardiovascular: reports: Shortness of Breath Respiratory: reports: Cough, SOB, SOB on Exertion Gastrointestinal: reports: No Symptoms Genitourinary: reports: No Symptoms Breasts: reports: No Symptoms Reported Musculoskeletal: reports: No Symptoms Integumentary: reports: No Symptoms Neurological: reports: No Symptoms Endocrine: reports: No Symptoms Hematology/Lymphatic: reports: No Symptoms Psychiatric: reports: No Symptoms Physical Examination Vital Signs: Vital Signs Temperature 98.1 F 09/09/18 20:50 Pulse Rate 80 09/09/18 20:50 Respiratory Rate 18 09/09/18 20:50 Blood Pressure 124/76 09/09/18 20:50 O2 Sat by Pulse Oximetry (%) 97 09/09/18 18:04 Constitutional: Yes: No Distress, Anxious Eyes: Yes: Conjunctiva Clear, EOM Intact, PERRL HENT: Yes: Atraumatic, Normocephalic, Other (tardive dyskinesia) Neck: Yes: WNL, Supple, Trachea Midline Cardiovascular: Yes: WNL, Regular Rate and Rhythm, S1, S2 Respiratory: Yes: Diminished, On Nasal O2, Rhonchi, SOB, SOB on Exertion, Wheezes Gastrointestinal: Yes: WNL, Normal Bowel Sounds, Soft Breast(s): Yes: WNL Musculoskeletal: Yes: WNL Extremities: Yes: WNL Edema: No Peripheral Pulses WNL: Yes Neurological: Yes: Alert, Confusion, Cran Nerves II-XII Intact ...Motor Strength: WNL Psychiatric: Yes: Alert Labs: CBC, BMP 09/09/18 14:59 09/09/18 14:59 Laboratory Results - last 24 hr 09/09/18 09/09/18 14:59 14:59 WBC 7.2 RBC 4.33 Hgb 13.8 Hct 41.6 D MCV 96.1 H MCH 31.9 MCHC 33.2 RDW 12.9 Plt Count 317 MPV 7.4 L D Absolute Neuts (auto) 4.9 Neutrophils % 67.4 Lymphocytes % 21.0 D Monocytes % 8.4 Eosinophils % 2.8 Basophils % 0.4 Sodium 135 L Potassium 4.1 Chloride 102 Carbon Dioxide 22 Anion Gap 11 BUN 20 H Creatinine 1.3 Creat Clearance w eGFR 53.96 Random Glucose 125 H Calcium 9.3 Total Bilirubin 0.6 AST 25 ALT 14 Alkaline Phosphatase 70 Total Protein 6.5 Albumin 3.9 Intake & Output 09/07/18 09/08/18 09/09/18 09/10/18 23:59 23:59 23:59 23:59 Intake Total 120 Balance 120 Weight 80.694 kg Current Medications Generic Name Dose Route Start Last Admin Trade Name Freq PRN Reason Stop Dose Admin Albuterol Sulfate 2 puff 09/09/18 16:38 Ventolin Hfa Inhaler - IH Q4H PRN SHORTNESS OF BREATH Albuterol/Ipratropium 1 amp 09/09/18 16:40 09/09/18 18:20 Duoneb - NEB 1 amp Q6H PRN Administration SHORTNESS OF BREATH Alprazolam 1 mg 09/09/18 22:00 09/09/18 21:42 Xanax - PO 1 mg BID FIDEL Administration Budesonide/Formoterol Fumarate 2 puff 09/09/18 22:00 09/09/18 23:25 Symbicort 160/4.5mcg - IH 2 inh BID FIDEL Administration Bupropion HCl 300 mg 09/10/18 10:00 Wellbutrin Xl - PO DAILY FIDEL Clopidogrel Bisulfate 75 mg 09/10/18 10:00 Plavix - PO DAILY FIDEL Ezetimibe 10 mg 09/09/18 22:00 09/09/18 21:43 Zetia - PO 10 mg HS FIDEL Administration Escitalopram Oxalate 30 mg 09/10/18 10:00 Lexapro - PO DAILY FIDEL Sodium Chloride 1,000 mls @ 50 mls/hr 09/09/18 16:45 09/09/18 17:08 Normal Saline - IV 50 mls/hr ASDIR FIDEL Administration Levofloxacin 500 mg 09/10/18 10:00 Levaquin - PO DAILY FIDEL Lisinopril 10 mg 09/10/18 10:00 Prinivil PO DAILY FIDEL Melatonin 5 mg 09/09/18 20:58 09/09/18 21:43 Melatonin PO 5 mg HS PRN Administration INSOMNIA Risperidone 2 mg 09/09/18 22:00 09/09/18 21:42 Risperdal - PO 2 mg BID FIDEL Administration Tiotropium [place] 2 puff 09/10/18 10:00 Spiriva Respimat IH DAILY FIDEL Imaging - Results Chest X-ray: Image Reviewed EKG: Image Reviewed Problem List - Problems (1) COPD exacerbation Assessment/Plan: Duonebs Chest Xray- reviewed Solumederol given in ED Continue Spiriva Levofloxacin for pseudomonal coverage Appreciate Pulmonology consult O2 Monitor CBC, BMP Monitor vitals Peak Flow Code(s): J44.1 - CHRONIC OBSTRUCTIVE PULMONARY DISEASE W (ACUTE) EXACERBATION (2) CAD (coronary artery disease) Assessment/Plan: stable EKG- reviewed Continue Plavix, Lisinoptil, Zetia Code(s): I25.10 - ATHSCL HEART DISEASE OF [place] CORONARY ARTERY W/O ANG PCTRS (3) Hypertension Assessment/Plan: Stable Monitor BP Continue home meds Code(s): I10 - ESSENTIAL (PRIMARY) HYPERTENSION (4) Gastritis Assessment/Plan: Will continue to monitor and treat with interventions accordingly Code(s): K29.70 - GASTRITIS, UNSPECIFIED, WITHOUT BLEEDING (5) Depression Assessment/Plan: Continue Respiradone, Wellbutrin Code(s): F32.9 - MAJOR DEPRESSIVE DISORDER, SINGLE EPISODE, UNSPECIFIED (6) Anxiety Assessment/Plan: Continue Xanax Monitor Spo2 closely Code(s): F41.9 - ANXIETY DISORDER, UNSPECIFIED Assessment/Plan This is a 73 y/o man with a PMHx of COPD, CAD, [place] s/p Stent (06), HTN, HLD, Dementia, GERD, Hyponatremia. Placed in Observation for COPD Exacerbation for further evaluation of their emergent condition. Plan: See Problem List FEN PO fluids as tolerated Replete lytes prn Low Na Diet DVT ppx OOB SCDs AC if LOS > 48 hrs Code Status: Full Code Dispo: Observation Visit type - Emergency Visit Emergency Visit: Yes ED Registration Date: 09/09/18 Care time: The patient presented to the Emergency Department on the above date and was hospitalized for further evaluation of their emergent condition. - New Patient This patient is new to me today: Yes Date on this admission: 09/09/18 - Critical Care Critical Care patient: No
[2018-09-09] MEDS: ALPRAZolam 0.25 MG TABLET PO SCH (21:42)
[2018-09-09] MEDS: risperiDONE 1 MG TABLET (FP) PO SCH (21:42)
[2018-09-09] MEDS ORDERED: EZETIMIBE 10 MG TABLET (FP) PO SCH (22:00)
[2018-09-09] MEDS ORDERED: risperiDONE 2 MG TABLET PO SCH (22:00)
[2018-09-09] MEDS: BUDESONIDE/FORMETEROL FUMARATE 160/4.5 mcg INHALER IH SCH (23:25)
[2018-09-10] MEDS ORDERED: PT OWN MED DRAWER 7, Y5N ONE ×2 (07:50→09:16)
[2018-09-10 08:56] LABS: ANION GAP 11 MMOL/L (8-16); BASO % 0.1 % (0-2.0); BLOOD UREA NITROGEN 19 mg/dl (7-18); CALCIUM 9.2 mg/dl (8.5-10); CHLORIDE 99 mmol/L (98-107); CO2 24 mmol/L (21-32); CREATININE 1.2 mg/dl (0.55-1.3); EOS % 0.2 % (0-4.5); GLUCOSE,RANDOM 129 mg/dl (74-106); HEMATOCRIT 37.2 % (35.4-49); HEMOGLOBIN 12.7 GM/dl (11.7-16.9); LYMPH % 10.3 % (8-40); MCH 32.6 pg (25.7-33.7); MCHC 34.1 g/dl (32.0-35.9); MEAN CELL VOLUME 95.7 fl (80-96); MEAN PLT VOLUME 7.6 fl (7.5-11.1); MONO % 5.5 % (3.8-10.2); NEUT % 83.9 % (42.8-82.8); PLATELET COUNT 274 K/MM3 (134-434); POTASSIUM 4.5 mmol/L (3.5-5.1); RBC 3.88 M/mm3 (4.00-5.60); RDW 12.5 % (11.9-15.9); SODIUM 134 mmol/L (136-145); WHITE BLOOD COUNT 8.7 K/mm3 (4.0-10.8)
[2018-09-10] MEDS: BUDESONIDE/FORMETEROL FUMARATE 160/4.5 mcg INHALER IH SCH (09:23)
[2018-09-10] MEDS: ALPRAZolam 0.25 MG TABLET PO SCH (09:24)
[2018-09-10] MEDS: risperiDONE 1 MG TABLET (FP) PO SCH (09:24)
[2018-09-10 09:34] VITALS: BP 127/68; PULSE 71; TEMP 97.6
[2018-09-10] MEDS ORDERED: ESCITALOPRAM OXALATE 20 MG TABLET (FP) PO SCH (10:00)
[2018-09-10] MEDS ORDERED: LISINOPRIL 10 MG TABLET (FP) PO SCH (10:00)
[2018-09-10] MEDS ORDERED: TIOTROPIUM BROMIDE 2.5 MCG (SPIRIVA) RESPIMAT INHALER IH SCH (10:00)
[2018-09-10] MEDS ORDERED: predniSONE 20 MG TABLET (UD) PO SCH (10:00)
[2018-09-10] MEDS ORDERED: CLOPIDOGREL BISULFATE 75 MG TABLET (FP) PO SCH (10:00)
--- NOTE | 2018-09-10 10:11 | DS ---
Physical Exam: SUBJECTIVE: Patient seen and examined sitting on edge of bed. Feels much better , breathing improved. Feels ready to go home. OBJECTIVE: Vital Signs Period Temp Pulse Resp BP Sys/Gonzales Pulse Ox Last 24 Hr 97.6 F-98.1 F 68-109 18-30 113-131/55-91 94-98 PHYSICAL EXAM GENERAL: The patient is awake, alert, and fully oriented, in no acute distress. LUNGS: Breath sounds equal, clear to auscultation bilaterally, no wheezes, no crackles, no accessory muscle use. HEART: Regular rate and rhythm, S1, S2 ABDOMEN: Soft, nontender, nondistended EXTREMITIES: 2+ pulses, warm, well-perfused, no edema. NEUROLOGICAL: Cranial nerves II through XII grossly intact. Tongue thrusting, head rolling. LABS Laboratory Results - last 24 hr 09/09/18 09/09/18 09/10/18 14:59 14:59 06:54 WBC 7.2 8.7 RBC 4.33 3.88 L Hgb 13.8 12.7 Hct 41.6 D 37.2 MCV 96.1 H 95.7 MCH 31.9 32.6 MCHC 33.2 34.1 RDW 12.9 12.5 Plt Count 317 274 MPV 7.4 L D 7.6 Absolute Neuts (auto) 4.9 7.3 Neutrophils % 67.4 83.9 H D Lymphocytes % 21.0 D 10.3 D Monocytes % 8.4 5.5 Eosinophils % 2.8 0.2 D Basophils % 0.4 0.1 Sodium 135 L Potassium 4.1 Chloride 102 Carbon Dioxide 22 Anion Gap 11 BUN 20 H Creatinine 1.3 Creat Clearance w eGFR 53.96 Random Glucose 125 H Calcium 9.3 Total Bilirubin 0.6 AST 25 ALT 14 Alkaline Phosphatase 70 Total Protein 6.5 Albumin 3.9 09/10/18 06:54 WBC RBC Hgb Hct MCV MCH MCHC RDW Plt Count MPV Absolute Neuts (auto) Neutrophils % Lymphocytes % Monocytes % Eosinophils % Basophils % Sodium 134 L Potassium 4.5 Chloride 99 Carbon Dioxide 24 Anion Gap 11 BUN 19 H Creatinine 1.2 Creat Clearance w eGFR 59.18 Random Glucose 129 H Calcium 9.2 Total Bilirubin AST ALT Alkaline Phosphatase Total Protein Albumin HOSPITAL COURSE: Date of Admission:09/09/18 Date of Discharge: 09/10/18 Pre hospital course 73 year-old male with a PMH significant for HTN, HLD, CAD s/p NM, COPD, diastolic HF, AAA repair, chronic hyponatremia, tardive dyskinesia, anxiety/ depression. Presented to the ED with a report of SOB x 5 days. Recent trip to [place] and when he returned his symptoms worsened. His nebulizer machine at home is broken. ED course 1. Solumedrol 60mg x 1 Subsequent hospital course COPD exacerbation --treated with home Symbicort, Sprivia; duonebs PRN --solumedrol 60mg x 1 in ED, prednisone 40mg today; will resume regular daily prednisone dosing upon discharge --afebrile, no leukocytosis, possible early infiltrate v. atelectasis on CXR ; given levofloxacin x 1 dose; discharged on augmentin to complete 5 days of treatment Hypertension --BP stable --continued lisinopril Hyperlipidemia --continued Zetia Coronary artery disease --continued Plavix; not on ASA, not on beta alton Diastolic heart failure, chronic --continued lisinopril --euvolemic, not on diuretics Tardive dyskinesia Anxiety/depression --continued Wellbutrin, Lexapro, risperidone, Xanax, melatonin Minutes to complete discharge: 35 Discharge Summary Reason For Visit: CHRONIC OBSTRUCTIVE PULMONARY DISEASE, UNSPECIFIED Current Active Problems COPD (chronic obstructive pulmonary disease) (Chronic) Condition: Improved - Instructions Diet, Activity, Other Instructions: A prescription has been sent to your pharmacy for a nebulizer machine, mask, and tubing. You indicated you have enough albuterol solution at home. A prescription has also been sent for augmentin, an antibiotic. Take this medication as directed and be sure to finish all the medication. An appointment has been made for you to see Dr. Wick as your new primary care provider. SEPTEMBER 17 at 1:00pm. Return to the emergency department for any new or worsening symptoms. Referrals: Ford Wick MD [Staff Physician] - 09/17/18 1:00 pm Disposition: HOME - Home Medications Comprehensive Discharge Medication List: Ambulatory Orders Escitalopram Oxalate [Lexapro -] 30 mg PO DAILY 04/29/14 Alprazolam [Xanax] 1 mg PO BID 11/19/14 Bupropion HCl [Wellbutrin Xl -] 300 mg PO DAILY 06/14/15 Risperidone 2 mg PO BID 11/24/15 Lisinopril 10 mg PO DAILY 10/28/16 Ezetimibe [Zetia -] 10 mg PO HS tablet 10/30/16 Clopidogrel Bisulfate [Plavix -] 75 mg PO DAILY 04/23/17 Albuterol Sulfate Inhaler - [Ventolin HFA Inhaler -] 2 inh PO Q4H PRN #1 inh Budesonide/Formeterol Fumarate [SYMBICORT 160/4.5mcg -] 2 puff IH BID #1 inhaler 04/27/17 predniSONE [Deltasone -] 4 mg PO DAILY 11/16/17 Albuterol 0.083% Nebulizer Aletha [Ventolin 0.083% Nebulizer Soln -] 1 neb NEB Q6H PRN 12/30/17 Tiotropium [place] [Spiriva] 2 inh IH DAILY #30 cap.w.dev 01/22/18 Zolpidem Tartrate [Ambien] 10 mg PO HS 09/09/18 This patient is new to me today: Yes Date on this admission: 09/10/18 Emergency Visit: Yes ED Registration Date: 09/09/18 Care time: The patient presented to the Emergency Department on the above date and was hospitalized for further evaluation of their emergent condition. Critical Care patient: No - Discharge Referral Referred to [facility] No
--- NOTE | 2018-09-10 11:01 | EKG ---
Test Reason : Blood Pressure : / mmHG Vent. Rate : 072 BPM Atrial Rate : 072 BPM P-R Int : 190 ms QRS Dur : 094 ms QT Int : 390 ms P-R-T Axes : 000 -38 018 degrees QTc Int : 427 ms SINUS RHYTHM WITH MARKED SINUS ARRHYTHMIA LEFT AXIS DEVIATION MINIMAL VOLTAGE CRITERIA FOR LVH, MAY BE NORMAL VARIANT INFERIOR INFARCT (CITED ON OR BEFORE 21-AUG-2016) ABNORMAL ECG WHEN COMPARED WITH ECG OF 30-MAR-2018 12:24, NO SIGNIFICANT CHANGE WAS FOUND Confirmed by JARED SMILEY MD ([id number]) on 09/10/2018 11:00:42 AM Referred By: MAGUI Confirmed By:JARED SMILEY MD
== END 2018-09-10 11:05 | disposition home or self-care (01) ==
LOC: FER 14:42 → FM/S 16:35 → INTOOBSV 16:35 → UNDOADMOB 16:35 → FM/S 16:35
PROVIDERS: ADMIT Internal Medicine; ATTEND Nurse Practitioner Acute Care
PROC: 3E0333Z Introduction of Anti-inflammatory into Peripheral Vein, Percutaneous Approach (ICD-10-PCS; principal; 2018-09-09)
PROC: 3E0337Z Introduction of Electrolytic and Water Balance Substance into Peripheral Vein, Percutaneous Approach (ICD-10-PCS; 2018-09-09)
PROC: 3E0F7GC Introduction of Other Therapeutic Substance into Respiratory Tract, Via Natural or Artificial Opening (ICD-10-PCS; 2018-09-09)
DX: J44.1 Chronic obstructive pulmonary disease with (acute) exacerbation (principal); I11.0 Hypertensive heart disease with heart failure; I50.32 Chronic diastolic (congestive) heart failure; I25.2 Old myocardial infarction; I25.10 Atherosclerotic heart disease of native coronary artery without angina pectoris; F03.90 Unspecified dementia, unspecified severity, without behavioral disturbance, psychotic disturbance, mood disturbance, and anxiety; K29.70 Gastritis, unspecified, without bleeding; E78.5 Hyperlipidemia, unspecified; F32.9 Major depressive disorder, single episode, unspecified; F41.9 Anxiety disorder, unspecified; K21.9 Gastro-esophageal reflux disease without esophagitis; G24.01 Drug induced subacute dyskinesia; Z95.5 Presence of coronary angioplasty implant and graft
CPT/HCPCS: 36415; 71045-TC-FY; 80048; 80053; 85025; 93005; 94640; 99284-25; G0378; J2794; J7030

== ENCOUNTER 2019-01-21 10:17 | Emergency (ER) | payer OTHER, BC ==
--- NOTE | 2019-01-21 10:22 | PDOC ---
History of Present Illness - General Chief Complaint: Shortness of Breath Stated Complaint: SOB Time Seen by Provider: 01/21/19 10:22 History Source: Patient Exam Limitations: No Limitations - History of Present Illness Initial Comments: 01/21/19 10:23 Roberto Carlos Ann is 73yM with a PMHx of COPD, hyponatremia, [place] s/p stent 2005, dementia, tardive dyskinesia, HTN, and HLD, presenting w SOB. Noticed it yesterday morning. Unchanged with body position. Denies cough, chest pain/ tightness. Frequently presents w SOB in past relieved w duoneb. Takes 80 prednisone daily, took 40 this morning. Breathes room air at baseline. Denies fever, headache, nausea, urinary/bowel mvmt changes. Past History - Past Medical History Allergies/Adverse Reactions: Allergies Allergy/AdvReac Type Severity Reaction Status Date / Time No Known Allergies Allergy Verified 09/09/18 17:04 Home Medications: Ambulatory Orders Escitalopram Oxalate [Lexapro -] 30 mg PO DAILY 04/29/14 Alprazolam [Xanax] 1 mg PO BID 11/19/14 Bupropion HCl [Wellbutrin Xl -] 300 mg PO DAILY 06/14/15 Risperidone 2 mg PO BID 11/24/15 Lisinopril 10 mg PO DAILY 10/28/16 Ezetimibe [Zetia -] 10 mg PO HS tablet 10/30/16 Clopidogrel Bisulfate [Plavix -] 75 mg PO DAILY 04/23/17 Budesonide/Formeterol Fumarate [SYMBICORT 160/4.5mcg -] 2 puff IH BID #1 inhaler 04/27/17 predniSONE [Deltasone -] 4 mg PO DAILY 11/16/17 Tiotropium [place] [Spiriva] 2 inh IH DAILY #30 cap.w.dev 01/22/18 Zolpidem Tartrate [Ambien] 10 mg PO HS 09/09/18 Prednisone 10 mg PO DAILY 5 Days #5 tablet 01/21/19 Prednisone 40 mg PO ONCE 5 Days #5 tab.ds.pk 01/21/19 Anemia: No Asthma: No Cancer: No Cardiac Disorders: Yes (cardiac [id number], history of AK 2005) CVA: No COPD: Yes CHF: No DVT: No Dementia: (FORGETFUL) Diabetes: No GI Disorders: Yes (HEARTBURN) Disorders: No HTN: Yes Hypercholesterolemia: Yes Liver Disease: No Psychiatric Problems: Yes Seizures: No Thyroid Disease: No - Surgical History Abdominal Surgery: Yes (AAA 02/03/2017) Appendectomy: No Cardiac Surgery: Yes (cardiac stent 2005 & 04/2017) Cholecystectomy: No Lung Surgery: No Neurologic Surgery: No Orthopedic Surgery: No - Suicide/Smoking/Psychosocial Hx Smoking Status: No Smoking History: Never smoked Have you smoked in the past 12 months: No Number of Cigarettes Smoked Daily: 0 If you are a former smoker, when did you quit?: 2006 Hx Alcohol Use: No Drug/Substance Use Hx: No Substance Use Type: Alcohol Hx Substance Use Treatment: No Review of Systems - Review of Systems Constitutional: No: Chills, Fever, Malaise HEENTM: No: Eye Pain, Ear Pain, Nose Pain, Nose Bleeding, Mouth Pain Respiratory: No: Cough, Shortness of Breath Cardiac (ROS): No: Chest Pain, Edema, Lightheadedness, Palpitations ABD/GI: No: Abdominal Distended, Constipated, Diarrhea, Nausea, Vomiting : No: Burning, Dysuria, Discharge, Frequency, Flank Pain, Hematuria Musculoskeletal: No: Back Pain, Joint Pain, Joint Swelling, Muscle Pain Integumentary: No: Bruising, Dryness, Erythema, Flushing Neurological: No: Headache, Numbness, Paresthesia, Seizure, Tingling, Tremors Psychiatric: No: Anxiety, Depression Endocrine: No: Excessive Sweating, Flushing, Intolerance to Cold, Intolerance to Heat Hematologic/Lymphatic: No: Anemia, Blood Clots, Easy Bleeding *Physical Exam - Physical Exam General Appearance: Yes: Nourished, Appropriately Dressed. No: Apparent Distress HEENT: positive: EOMI, CHARAN, Normal Voice, Hearing Grossly Normal, Other (mouth fasciculations). negative: Pale Conjunctivae, Pharyngeal Erythema, Tonsillar Exudate, Tonsillar Erythema, Nasal Congestion, Lesions Respiratory/Chest: positive: Lungs Clear, Normal Breath Sounds. negative: Chest Tender, Respiratory Distress, Accessory Muscle Use, Labored Respiration, Crackles, Rales, Rhonchi, Stridor, Wheezing Cardiovascular: positive: Regular Rate, S1, S2, Bradycardia. negative: Edema, Murmur Extremity: positive: Normal Capillary Refill Integumentary: positive: Normal Color Neurologic: positive: twister operator II-XII NML intact, Fully Oriented, Alert, Normal Mood/ Affect, Normal Response, Responsive. negative: Numbness, Confused, Disoriented ED Treatment Course - LABORATORY CBC & Chemistry Diagram: 01/21/19 11:00 01/21/19 11:00 Medical Decision Making - Medical Decision Making 01/21/19 10:34 EKG CXR CBC CMP trop BNP duoneb, 40 prednisone normal CBC, CMP unchanged from baseline, neg trop EKG shows sinus bradycardia CXR unchanged Roberto Carlos Ann is 73yM with a PMHx of COPD, hyponatremia, [place] s/p stent 2005, dementia, tardive dyskinesia, HTN, and HLD, presenting w SOB. SOB d/t mild COPD exacerbation based on mild wheezing. Given duoneb, 40 prednisone w lung sound/ breathing improvement, O2 sat wnl. ACS ruled out w negative trop, unchanged EKG (sinus bradycardia). Pneumonia not seen on CXR. D/c home w 40 prednisone x5d prescription, f/u w Dr Hines docketing specialist. *DC/Admit/Observation/Transfer Diagnosis at time of Disposition: COPD exacerbation - Discharge Dispostion Disposition: HOME Condition at time of disposition: Improved Decision to Admit order: No - Prescriptions Prescriptions: Prednisone 40 mg PO ONCE 5 Days #5 tab.ds.pk - Referrals Referrals: Chandu Hogan MD [Primary Care Provider] - Chandana Hines MD [Staff Physician] - - Patient Instructions Printed Discharge Instructions: DI for Chronic Obstructive Pulmonary Disease Additional Instructions: You were seen for shortness of breath. You were given medications to help with your breathing. Please make an appointment to see your lung doctor Dr. Hines regarding your visit. Take your prescribed prednisone once daily for the next 5 days. Come back to the ED if you cannot breathe, have chest tightness, or vomit. - Post Discharge Activity
[2019-01-21 10:39] VITALS: BP 144/73; PULSE 59; TEMP 98; BMI 27.8
[2019-01-21] MEDS ORDERED: ALBUTEROL SO4 2.5/IPRATROPIUM 0.5 INH SOL 3 ML VIAL.NEB. NEB ONE ×2 (10:42→10:47)
[2019-01-21] MEDS ORDERED: predniSONE 20 MG TABLET (UD) PO ONE (10:42)
[2019-01-21] MEDS ORDERED: predniSONE 20 MG TABLET (UD) ONE (10:47)
[2019-01-21 11:43] LABS: ALBUMIN 3.9 g/dl (3.4-5.0); BILIRUBIN,TOTAL 0.3 mg/dl (0.2-1); CREATININE 1.5 mg/dl (0.55-1.3); POTASSIUM 4.4 mmol/L (3.5-5.1); TOT PROT 6.2 g/dl (6.4-8.2)
[2019-01-21 11:54] LABS: HEMATOCRIT 37.5 % (35.4-49); HEMOGLOBIN 12.8 GM/dl (11.7-16.9); MCH 32.5 pg (25.7-33.7); MEAN CELL VOLUME 95.5 fl (80-96); MEAN PLT VOLUME 7.4 fl (7.5-11.1); PLATELET COUNT 314 K/MM3 (134-434); RBC 3.93 M/mm3 (4.00-5.60); RDW 12.3 % (11.9-15.9); WHITE BLOOD COUNT 8.9 K/mm3 (4.0-10.8)
--- NOTE | 2019-01-21 12:58 | PDOC ---
Attending Attestation - Resident Resident Name: Arpit Hoover - ED Attending Attestation I have performed the following: I have examined & evaluated the patient, The case was reviewed & discussed with the resident, I agree w/resident's findings & plan, Exceptions are as noted - HPI HPI: 01/21/19 12:54 73 yo male h/o copd, htn anxiety chf here wtih c/o sob. pt states he has been feeling sob since yesterday. he took 80 mg steroids day prior, today took 20 mg . used inhalers, no improvement. describes tightness that he always gets with copd. no new pain. no leg swelling. no calf tenderness. no other complaints. no f/c no n/v pcp dr alvarado. - Physicial Exam PE: 01/21/19 12:55 awake alert NAD lungs with wheezes bilat bases, normal effort. heart rrr no mrg abd soft nt nd esxtwwp no edema. no calf tenderness. nuero alert oriented x 3. - Medical Decision Making 01/21/19 12:56 73 yo copd htn anxiety chf here wtih sob. paln xray r/o pna, chf, inhalers, steroids. pt feels much improved followign neb treatment. cxr no infiltrate. labs noted. 01/21/19 12:56 troponin negative. labs normal wbc. Na 130 chronic hyponatremia. requesting to be dc home. will fu dr alvarado. dr alvarado office called to arrange followup care. awaiting call back. 01/21/19 12:57 Heart Score/ECG Review #1 General ECG Interpretation: Sinus Rhythm, Normal Rate, Normal Intervals, No acute ischemic changes Compared to previous ECG there are: No significant change (comparison .2018)
--- NOTE | 2019-01-22 11:20 | EKG ---
Test Reason : Blood Pressure : / mmHG Vent. Rate : 052 BPM Atrial Rate : 052 BPM P-R Int : 192 ms QRS Dur : 094 ms QT Int : 432 ms P-R-T Axes : 008 -20 -35 degrees QTc Int : 401 ms SINUS BRADYCARDIA INFERIOR INFARCT (CITED ON OR BEFORE 21-AUG-2016) ABNORMAL ECG WHEN COMPARED WITH ECG OF 09-SEP-2018 16:17, NONSPECIFIC T WAVE ABNORMALITY, WORSE IN INFERIOR LEADS NONSPECIFIC T WAVE ABNORMALITY, WORSE IN LATERAL LEADS Confirmed by Charles Arellano MD ([id number]) on 01/22/2019 11:20:08 AM Referred By: Confirmed By:Charles Arellano MD
== END 2019-01-21 12:54 | disposition home or self-care (01) ==
LOC: SUPCPDRO 10:17 → FER 10:17
PROC: 3E0F7GC Introduction of Other Therapeutic Substance into Respiratory Tract, Via Natural or Artificial Opening (ICD-10-PCS; principal; 2019-01-21)
DX: J44.1 Chronic obstructive pulmonary disease with (acute) exacerbation (principal); E87.1 Hypo-osmolality and hyponatremia; G24.01 Drug induced subacute dyskinesia; I10 Essential (primary) hypertension; E78.5 Hyperlipidemia, unspecified; F03.90 Unspecified dementia, unspecified severity, without behavioral disturbance, psychotic disturbance, mood disturbance, and anxiety
CPT/HCPCS: 36415; 71046-TC-FY; 80053; 83880; 84484; 85025; 93005; 99283-25

== ENCOUNTER 2019-01-27 23:00 | Inpatient (IN) | payer OTHER, BC ==
--- NOTE | 2019-01-27 23:42 | PDOC ---
History of Present Illness - General Chief Complaint: Shortness of Breath Stated Complaint: DIFFICULTY BREATHING Time Seen by Provider: 01/27/19 23:24 - History of Present Illness Initial Comments: This 73-year-old man with a history of COPD, hyponatremia, OK s/p stent 2005, dementia,anxiety, tardive dyskinesia, HTN, and HLD presents by ambulance shortness of breath over the last few hours. According to EMS, he had clear lung sounds at the scene but he was given DuoNeb treatment during transport because of his symptoms of shortness of breath. On arrival, patient states that he has had a few hours of shortness of breath but no cough,fever, chest pain, abdominal pain, nausea or leg pain. He states that he took the last of his prednisone course a few days ago (patient was seen here 01/21 with shortness of breath and was prescribed a course of prednisone on discharge.) Otherwise, he has been taking his medications as prescribed Past History - Past Medical History Allergies/Adverse Reactions: Allergies Allergy/AdvReac Type Severity Reaction Status Date / Time No Known Allergies Allergy Verified 01/27/19 23:14 Home Medications: Ambulatory Orders Escitalopram Oxalate [Lexapro -] 30 mg PO DAILY 04/29/14 Alprazolam [Xanax] 1 mg PO TID 11/19/14 Bupropion HCl [Wellbutrin Xl -] 300 mg PO DAILY 06/14/15 Lisinopril 10 mg PO DAILY 10/28/16 Clopidogrel Bisulfate [Plavix -] 75 mg PO DAILY 04/23/17 Budesonide/Formeterol Fumarate [SYMBICORT 160/4.5mcg -] 2 puff IH BID #1 inhaler 04/27/17 Tiotropium [place] [Spiriva] 2 inh IH DAILY #30 cap.w.dev 01/22/18 Aspirin [ASA -] 81 mg PO DAILY 01/28/19 Fenofibrate 50 mg PO DAILY 01/28/19 Risperidone 0.5 mg PO BID 01/28/19 Anemia: No Asthma: No Cancer: No Cardiac Disorders: Yes (cardiac [id number], history of OK 2005) CVA: No COPD: Yes CHF: No DVT: No Dementia: (FORGETFUL) Diabetes: No GI Disorders: Yes (HEARTBURN) Disorders: No HTN: Yes Hypercholesterolemia: Yes Liver Disease: No Psychiatric Problems: Yes Seizures: No Thyroid Disease: No - Surgical History Abdominal Surgery: Yes (AAA 02/03/2017) Appendectomy: No Cardiac Surgery: Yes (cardiac stent 2005 & 04/2017) Cholecystectomy: No Lung Surgery: No Neurologic Surgery: No Orthopedic Surgery: No - Suicide/Smoking/Psychosocial Hx Smoking Status: No Smoking History: Unknown if ever smoked Have you smoked in the past 12 months: No Number of Cigarettes Smoked Daily: 0 If you are a former smoker, when did you quit?: 2005 Information on smoking cessation initiated: No Hx Alcohol Use: No Drug/Substance Use Hx: No Substance Use Type: Alcohol Hx Substance Use Treatment: No Review of Systems - Review of Systems Able to Perform ROS?: Yes *Physical Exam - Vital Signs Last Vital Signs Temp Pulse Resp BP Pulse Ox 97.9 F 109 H 22 H 140/93 100 01/27/19 23:15 01/27/19 23:15 01/27/19 23:15 01/27/19 23:01/27/19 23:15 - Physical Exam Comments: GENERAL: Elderly man, with tardive dyskinesia resulting in moderate dysarthria; breathing comfortably 97.9(PO)/140/93 109/min 97% HEAD: Normal with no signs of trauma. EYES: PERRLA, EOMI, sclera anicteric, conjunctiva clear. ENT: Ears normal, nares patent, oropharynx clear without exudates. Dry mucous membranes. NECK: Normal range of motion, supple without lymphadenopathy, JVD, or masses. LUNGS: Breath sounds equal, clear to auscultation bilaterally. No wheezes, and no crackles. HEART:Regular rate and rhythm, normal S1 and S2 without murmur, rub or gallop. ABDOMEN:.normal bowel sounds No guarding,tenderness or rebound.No masses No distention. EXTREMITIES: Normal range of motion, no edema. No clubbing or cyanosis. No erythema, or tenderness. NEUROLOGICAL: Cranial nerves II through XII grossly intact. No focal neurological deficits. Gait not evaluated Twelve-lead electrocardiogram performed and interpreted by me: Normal sinus rhythm at 96 bpm; there is left axis deviation as previously. No acute ST or T- wave abnormalities seen. Upon comparison of twelve-lead EKG dated 09/09/18, only difference is increasing SD interval from 190 ms to 210ms (first degree AV block). No acute cardiac arrhythmia seen. Portable chest x-ray performed and interpreted by me: No evidence of infiltrates , effusion, masses. No change from chest x-ray performed 01/21/19 ED Treatment Course - LABORATORY CBC & Chemistry Diagram: 01/29/19 07:20 01/28/19 00:10 Progress Note - Progress Note Progress Note: IV access obtained and diagnostic laboratory testing sent (CBC/chemistry profile /troponin) Laboratory values essentially within normal limits except for slightly elevated white blood cell count 11,200. Chemistry profile reveals normal electrolytes values. Although BUN/creatinine is slightly higher than during recent visits ( 26/1.6), he has had similar values previously, such as 36/1.7 when he was seen here in May of this year. Troponin is not elevated Patient given Solu-Medrol 125 mg IV. The patient continued to breathe comfortably without evidence of cough or wheezing. Supplemental oxygen was discontinued soon after patient arrived in the emergency room and he maintained pulse oximetry levels in the 97% range. No further nebulizer treatments were required. With no evidence of pneumonia, persistent bronchospasm or hypoxia, admission not required. Plan was to discharge the patient will follow-up with his PMD. When patient was informed of the results of his diagnostic workup and plans to discharge him, he replied that he needed to be admitted because he was "sick". He now stated that he had abdominal pain and was nauseated. Reexamination of his abdomen revealed no new tenderness or other acute abnormality. [Since the patient has great difficulty with ambulation, and he has no immediate family who can take him home, plans were made to discharge the patient with transportation home by ambulance. Because he lives alone, ambulance service contacted stated that transportation cannot be arranged because they will not take responsibility for leaving him alone at home] On further discussion, patient revealed that he was having difficulty taking care of himself at home (patient lives alone). The patient will stay in the emergency department overnight so that he can meet with Social Work resource, Rosa Hill, regarding arrangements for help at home. Case discussed with Dr Perez at change of shift *DC/Admit/Observation/Transfer Diagnosis at time of Disposition: COPD (chronic obstructive pulmonary disease) Qualifiers: COPD type: unspecified COPD Qualified Code(s): J44.9 - Chronic obstructive pulmonary disease, unspecified - Discharge Dispostion Condition at time of disposition: Improved - Referrals - Patient Instructions - Post Discharge Activity
[2019-01-28] MEDS ORDERED: methylPREDNISolone NA SUCC 125 MG/2 ML VIAL IVPB ONE (00:06)
[2019-01-28] MEDS ORDERED: methylPREDNISolone NA SUCC 125 MG/2 ML VIAL ONE (00:11)
[2019-01-28 00:43] LABS: BASO % 0.1 % (0-2.0); EOS % 0.9 % (0-4.5); HEMATOCRIT 42.6 % (35.4-49); HEMOGLOBIN 14.5 GM/dL (11.7-16.9); LYMPH % 12.7 % (8-40); MCH 32.5 pg (25.7-33.7); MCHC 34.1 g/dl (32.0-35.9); MEAN CELL VOLUME 95.3 fl (80-96); MEAN PLT VOLUME 6.8 fl (7.5-11.1); MONO % 8.1 % (3.8-10.2); NEUT % 78.2 % (42.8-82.8); PLATELET COUNT 331 K/MM3 (134-434); RBC 4.47 M/mm3 (4.00-5.60); RDW 13.2 % (11.9-15.9); WHITE BLOOD COUNT 11.2 K/mm3 (4.0-10.0)
[2019-01-28 01:18] LABS: ALBUMIN 4.2 g/dl (3.4-5.0); ALK PHOS 74 U/L (45-117); ANION GAP 10 MMOL/L (8-16); BILIRUBIN,TOTAL 0.5 mg/dL (0.2-1); BLOOD UREA NITROGEN 26.6 mg/dL (7-18); CALCIUM 9.9 mg/dL (8.5-10.1); CHLORIDE 102 mmol/L (98-107); CO2 26 mmol/L (21-32); CREATININE 1.6 mg/dL (0.55-1.3); GLUCOSE,RANDOM 87 mg/dL (74-106); POTASSIUM 4.8 mmol/L (3.5-5.1); SGOT/AST 19 U/L (15-37); SGPT/ALT 21 U/L (13-61); SODIUM 138 mmol/L (136-145); TOT PROT 6.8 g/dl (6.4-8.2)
--- NOTE | 2019-01-28 07:34 | PDOC ---
*Physical Exam - Vital Signs Last Vital Signs Temp Pulse Resp BP Pulse Ox 97.9 F 101 H 22 H 136/91 95 01/27/19 23:15 01/28/19 06:07 01/28/19 06:07 01/28/19 06:07 01/28/19 06:07 ED Treatment Course - LABORATORY CBC & Chemistry Diagram: 01/28/19 00:10 01/28/19 00:10 - ADDITIONAL ORDERS Additional order review: Laboratory Results 01/28/19 00:10 Sodium 138 Potassium 4.8 Chloride 102 Carbon Dioxide 26 Anion Gap 10 BUN 26.6 H Creatinine 1.6 H Est GFR (CKD-EPI)AfAm 48.47 Est GFR (CKD-EPI)NonAf 41.82 Random Glucose 87 Calcium 9.9 Total Bilirubin 0.5 AST 19 ALT 21 Alkaline Phosphatase 74 Creatine Kinase 135 Troponin I < 0.02 Total Protein 6.8 Albumin 4.2 01/28/19 00:10 RBC 4.47 MCV 95.3 MCHC 34.1 RDW 13.2 MPV 6.8 L Neutrophils % 78.2 Lymphocytes % 12.7 D Monocytes % 8.1 Eosinophils % 0.9 D Basophils % 0.1 - Medications Given in the ED: ED Medications Discontinued Medications Generic Name Dose Route Start Last Admin Trade Name Freq PRN Reason Stop Dose Admin Methylprednisolone Sodium Succinate 125 mg 01/28/19 00:06 01/28/19 00:19 Solu-Medrol - IVPB 01/28/19 00:07 125 mg ONCE ONE Administration Medical Decision Making - Medical Decision Making 01/28/19 08:20 01/28/19 11:10 Pt. unable to ambulate without becoming dyspneic, See continuation of care note *DC/Admit/Observation/Transfer Diagnosis at time of Disposition: COPD (chronic obstructive pulmonary disease) Qualifiers: COPD type: unspecified COPD Qualified Code(s): J44.9 - Chronic obstructive pulmonary disease, unspecified - Discharge Dispostion Disposition: HOME Condition at time of disposition: Stable - Referrals - Patient Instructions - Post Discharge Activity
[2019-01-28] MEDS ORDERED: ALPRAZolam 0.25 MG TABLET PO ONE (07:56)
[2019-01-28] MEDS ORDERED: ALPRAZolam 0.25 MG TABLET ONE (07:57)
--- NOTE | 2019-01-28 09:15 | HP ---
CHIEF COMPLAINT: Shortness of breath PCP: Samira HISTORY OF PRESENT ILLNESS: 73 year-old male with a PMH significant for HTN, HLD, CAD s/p DC s/p stent 2005 s/p stent 2017, COPD, diastolic HF, AAA repair with stent, chronic hyponatremia , paranoid schizophrenia x 40 years, tardive dyskinesia, dementia, and anxiety/ depression. On presentation to the ED patient complained of SOB x several hours. At the time of this provider's initial interview in the ED, the patient stated three days ago he had a sudden onset of bilateral lower extremity weakness which has prevented him from walking. On repeat interview patient said his walking ability is at baseline, that he can walk, and that he drove a car as recently as yesterday. Patient admitted he stopped taking his meds, including his psych meds. Patient's brother, Leonidas Ann, states patient told him people are out to kill him. Brother states patient has been treated for paranoid schizophrenia x 40 years and that when he talks like this he knows his brother is off his psych meds. 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 Hogan dated 01/23/19 Home Medications Medication Instructions Recorded Escitalopram Oxalate [Lexapro -] 30 mg PO DAILY 04/29/14 Alprazolam [Xanax] 1 mg PO BID 11/19/14 Bupropion HCl [Wellbutrin Xl -] 300 mg PO DAILY 06/14/15 Lisinopril 10 mg PO DAILY 10/28/16 Clopidogrel Bisulfate [Plavix -] 75 mg PO DAILY 04/23/17 Budesonide/Formeterol Fumarate 2 puff IH BID #1 inhaler 04/27/17 [SYMBICORT 160/4.5mcg -] Tiotropium [place] [Spiriva] 2 inh IH DAILY #30 cap.w.dev 01/22/18 Zolpidem Tartrate [Ambien] 10 mg PO HS 09/09/18 Aspirin [ASA -] 81 mg PO DAILY 01/28/19 Celecoxib 200 mg PO DAILY 01/28/19 Fenofibrate 50 mg PO DAILY 01/28/19 Risperidone 0.5 mg PO BID 01/28/19 REVIEW OF SYSTEMS CONSTITUTIONAL: Absent: fever, chills, diaphoresis, generalized weakness, malaise, loss of appetite, weight change HEENT: Absent: rhinorrhea, nasal congestion, throat pain, throat swelling, difficulty swallowing, mouth swelling, ear pain, eye pain, visual changes CARDIOVASCULAR: Absent: chest pain, syncope, palpitations, irregular heart rate, lightheadedness , peripheral edema RESPIRATORY: +SOB Absent: cough, dyspnea with exertion, orthopnea, wheezing, stridor, hemoptysis GASTROINTESTINAL: Absent: abdominal pain, abdominal distension, nausea, vomiting, diarrhea, constipation, melena, hematochezia GENITOURINARY: Absent: dysuria, frequency, urgency, hesitancy, hematuria, flank pain, genital pain MUSCULOSKELETAL: Absent: myalgia, arthralgia, joint swelling, back pain, neck pain SKIN: Absent: rash, itching, pallor HEMATOLOGIC/IMMUNOLOGIC: Absent: easy bleeding, easy bruising, lymphadenopathy, frequent infections ENDOCRINE: Absent: unexplained weight gain, unexplained weight loss, heat intolerance, cold intolerance NEUROLOGIC: +lower extremity weakness Absent: headache, focal weakness or paresthesias, dizziness, unsteady gait, seizure, mental status changes, bladder or bowel incontinence PSYCHIATRIC: +stopped taking psych meds, paranoid thinking Absent: anxiety, depression, suicidal or homicidal ideation, hallucinations. PHYSICAL EXAMINATION Vital Signs - 24 hr 01/27/19 01/28/19 01/28/19 23:15 02:11 03:34 Temperature 97.9 F Pulse Rate 109 H 78 Pulse Rate [ 87 Left] Respiratory 22 H 20 Rate Blood Pressure 140/93 Blood Pressure 136/94 [Left] O2 Sat by Pulse 100 97 98 Oximetry (%) 01/28/19 01/28/19 01/28/19 06:07 08:18 08:27 Temperature Pulse Rate Pulse Rate [ 101 H 113 H Left] Respiratory 22 H 31 H Rate Blood Pressure Blood Pressure 136/91 139/91 [Left] O2 Sat by Pulse 95 95 95 Oximetry (%) GENERAL: Awake, alert, and fully oriented, in no acute distress. NEURO: Marked pyramidal symptoms, tongue thrusting, head bobbing HEAD: Normal with no signs of trauma. LUNGS: Breath sounds equal, clear to auscultation bilaterally. No wheezes, and no crackles. No accessory muscle use. HEART: Regular rate and rhythm, normal S1 and S2 ABDOMEN: Soft, nontender, not distended UPPER EXTREMITIES: 2+ pulses, warm, well-perfused. No cyanosis. No clubbing. No peripheral edema. Extensive bruising in various stages of healing on both arms LOWER EXTREMITIES: 2+ pulses, warm, well-perfused. No calf tenderness. No peripheral edema. Laboratory Results - last 24 hr 01/28/19 01/28/19 00:10 00:10 WBC 11.2 H RBC 4.47 Hgb 14.5 Hct 42.6 MCV 95.3 MCH 32.5 MCHC 34.1 RDW 13.2 Plt Count 331 MPV 6.8 L Absolute Neuts (auto) 8.7 H Neutrophils % 78.2 Lymphocytes % 12.7 D Monocytes % 8.1 Eosinophils % 0.9 D Basophils % 0.1 Nucleated RBC % 0 Sodium 138 Potassium 4.8 Chloride 102 Carbon Dioxide 26 Anion Gap 10 BUN 26.6 H Creatinine 1.6 H Est GFR (CKD-EPI)AfAm 48.47 Est GFR (CKD-EPI)NonAf 41.82 Random Glucose 87 Calcium 9.9 Total Bilirubin 0.5 AST 19 ALT 21 Alkaline Phosphatase 74 Creatine Kinase 135 Troponin I < 0.02 Total Protein 6.8 Albumin 4.2 ASSESSMENT/PLAN 73 year-old male with a PMH significant for HTN, HLD, CAD s/p DC s/p stent 2006 s/p stent 2017, COPD, diastolic HF, AAA repair with stent, paranoid schizophrenia x 40 years, tardive dyskinesia, dementia, and anxiety/depression. Admitted for SOB, gait instability, and non-compliance with medications. Shortness of breath COPD --CXR clear, satting 95% on room air --continue Symbicort, Spiriva Gait instability --CT head: compared to 2009 study, again seen is moderate to marked ventricular dilatation; lateral and third ventricles are relatively more dilated than the fourth --neuro consult requested --PT evaluation Hypertension --BP stable --hold lisinopril due to elevated Cr Hyperlipidemia --rosuvastatin Coronary artery disease s/p stents --continue ASA, Plavix, statin Diastolic heart failure --seen on 07/17/17 Echo --euvolemic, not on diuretics Elevated creatinine --Cr 1.6, baseline 1.2 --hold ACEI --encourage PO intake Paranoid schizophrenia Tardive dyskinesia Dementia Anxiety/depression --extrapyramidal symptoms are pronounced, has been off meds for unknown period of time --neuro consult pending --Wellbutrin, Lexapro, Risperidone FEN Fluids: PO intake adequate Electrolytes: replete as indicated Nutrition: low sodium DVT prophylaxis: subq lovenox Physical therapy Dispo: continues to require inpatient care. Visit type - Emergency Visit Emergency Visit: Yes ED Registration Date: 01/28/19 Care time: The patient presented to the Emergency Department on the above date and was hospitalized for further evaluation of their emergent condition. - New Patient This patient is new to me today: Yes Date on this admission: 01/28/19 - Critical Care Critical Care patient: No
--- NOTE | 2019-01-28 09:54 | EKG ---
Test Reason : Blood Pressure : / mmHG Vent. Rate : 096 BPM Atrial Rate : 096 BPM P-R Int : 210 ms QRS Dur : 088 ms QT Int : 342 ms P-R-T Axes : 038 -32 050 degrees QTc Int : 432 ms SINUS RHYTHM WITH 1ST DEGREE A-V BLOCK LEFT AXIS DEVIATION INFERIOR INFARCT (CITED ON OR BEFORE 21-AUG-2016) CANNOT RULE OUT ANTERIOR INFARCT , AGE UNDETERMINED ABNORMAL ECG WHEN COMPARED WITH ECG OF 21-JAN-2019 10:51, VENT. RATE HAS INCREASED BY 44 BPM T WAVE VARIATION Confirmed by BALJIT EVANS, JARED ([id number]) on 01/28/2019 9:54:05 AM Referred By: DR GANT Confirmed By:JARED SMILEY MD
[2019-01-28 12:19] VITALS: BMI 28.4
[2019-01-28] MEDS ORDERED: SODIUM CHLORIDE 1,000 ML IV SCH (16:00)
[2019-01-28] MEDS: ASPIRIN 81 MG CHEWABLE TABLETS PO SCH (16:08)
[2019-01-28] MEDS: ESCITALOPRAM OXALATE 20 MG TABLET (FP) PO SCH (16:08)
[2019-01-28] MEDS: CLOPIDOGREL BISULFATE 75 MG TABLET (FP) PO SCH (16:08)
[2019-01-28] MEDS ORDERED: ACETAMINOPHEN 325 MG TABLET (FP) PO PRN (17:07)
[2019-01-28] MEDS ORDERED: PT OWN MED DRAWER 7, Y5N ONE (20:53)
[2019-01-28] MEDS: BUDESONIDE/FORMETEROL FUMARATE 160/4.5 mcg INHALER IH SCH (21:12)
[2019-01-28] MEDS: ALPRAZolam 0.25 MG TABLET PO SCH (21:13)
[2019-01-28] MEDS: risperiDONE 0.25 MG TABLET (FP) PO SCH (21:13)
[2019-01-28] MEDS ORDERED: ALPRAZolam 0.25 MG TABLET PO SCH (22:00)
[2019-01-28] MEDS ORDERED: ENOXAPARIN NA (PORCINE) 40 MG/0.4 ML DISP.SYRIN SQ SCH (22:00)
[2019-01-28] MEDS ORDERED: risperiDONE 1 MG TABLET (FP) PO SCH (22:00)
[2019-01-29] MEDS: ALPRAZolam 0.25 MG TABLET PO SCH ×2 (07:15→14:30)
[2019-01-29 08:02] LABS: BASO % 0.1 % (0-2.0); EOS % 0.8 % (0-4.5); HEMATOCRIT 40.2 % (35.4-49); HEMOGLOBIN 13.5 GM/dl (11.7-16.9); LYMPH % 13.5 % (8-40); MCH 32.6 pg (25.7-33.7); MCHC 33.7 g/dl (32.0-35.9); MEAN CELL VOLUME 96.8 fl (80-96); MEAN PLT VOLUME 7.1 fl (7.5-11.1); MONO % 8.5 % (3.8-10.2); NEUT % 77.1 % (42.8-82.8); PLATELET COUNT 322 K/MM3 (134-434); RBC 4.16 M/mm3 (4.00-5.60); RDW 12.7 % (11.9-15.9); WHITE BLOOD COUNT 9.8 K/mm3 (4.0-10.8)
[2019-01-29] MEDS: CLOPIDOGREL BISULFATE 75 MG TABLET (FP) PO SCH (09:23)
[2019-01-29] MEDS: risperiDONE 0.25 MG TABLET (FP) PO SCH (09:23)
[2019-01-29] MEDS: BUDESONIDE/FORMETEROL FUMARATE 160/4.5 mcg INHALER IH SCH (09:23)
[2019-01-29] MEDS: ESCITALOPRAM OXALATE 20 MG TABLET (FP) PO SCH (09:23)
[2019-01-29] MEDS: ASPIRIN 81 MG CHEWABLE TABLETS PO SCH (09:23)
--- NOTE | 2019-01-29 09:38 | CON.NEURO ---
Consult - Past Medical History WELFARE SPECIALIST: Yes: Other (forgetfulness) Cardio/Vascular: Yes: CAD, HTN, Hyperlipdemia, [place] Pulmonary: Yes: COPD Gastrointestinal: Yes: Other (umbilical hernia) Psych: Yes: Anxiety, Depression - Past Surgical History Past Surgical History: Yes: Stent - Alcohol/Substance Use Hx Alcohol Use: No History of Substance Use: reports: None - Smoking History Smoking history: Unknown if ever smoked Have you smoked in the past 12 months: No Aproximately how many cigarettes per day: 0 If you are a former smoker, when did you quit?: 2006 - Social History ADL: Independent 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 History of Recent Travel: No Home Medications - Allergies Allergies/Adverse Reactions: Allergies Allergy/AdvReac Type Severity Reaction Status Date / Time No Known Allergies Allergy Verified 01/27/19 23:14 - Home Medications Home Medications: Ambulatory Orders Escitalopram Oxalate [Lexapro -] 30 mg PO DAILY 04/29/14 Alprazolam [Xanax] 1 mg PO TID 11/19/14 Bupropion HCl [Wellbutrin Xl -] 300 mg PO DAILY 06/14/15 Lisinopril 10 mg PO DAILY 10/28/16 Clopidogrel Bisulfate [Plavix -] 75 mg PO DAILY 04/23/17 Budesonide/Formeterol Fumarate [SYMBICORT 160/4.5mcg -] 2 puff IH BID #1 inhaler 04/27/17 Tiotropium [place] [Spiriva] 2 inh IH DAILY #30 cap.w.dev 01/22/18 Zolpidem Tartrate [Ambien] 10 mg PO HS 09/09/18 Aspirin [ASA -] 81 mg PO DAILY 01/28/19 Celecoxib 200 mg PO DAILY 01/28/19 Fenofibrate 50 mg PO DAILY 01/28/19 Risperidone 0.5 mg PO BID 01/28/19 Physical Exam-Neuro Vital Signs: Vital Signs Temperature 98.0 F 01/29/19 05:00 Pulse Rate 80 01/29/19 05:00 Respiratory Rate 01/29/19 05:00 Blood Pressure 126/80 01/29/19 05:00 O2 Sat by Pulse Oximetry (%) 95 01/29/19 06:56 Labs: CBC, BMP 01/29/19 07:20 01/28/19 00:10 Assessment/Plan cc Possible NPH HPI 89 year old male history of HTN,HLD,CAD S/P Stent placement, COPD, chf, AAA repair, Paranoid schizoprhenia on antipsychotic medicatiion with tardive dyskinesia. Patient also have cognitive difficulty and anxiety adn depression. 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 Patient came to hospital for gait difficulty, he denies any urinary incontinence , weakness, sensory loss. He did have ct head showed large ventricles, which he had before.Patient family went on vacation and he has difficulty managing his own affairs, that was another reason for him to come to hospital. I spoke to nursing and house staff. 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 Hogan dated 01/23/19 Home Medications Medication Instructions Recorded Escitalopram Oxalate [Lexapro -] 30 mg PO DAILY 04/29/14 Alprazolam [Xanax] 1 mg PO BID 11/19/14 Bupropion HCl [Wellbutrin Xl -] 300 mg PO DAILY 06/14/15 Lisinopril 10 mg PO DAILY 10/28/16 Clopidogrel Bisulfate [Plavix -] 75 mg PO DAILY 04/23/17 Budesonide/Formeterol Fumarate 2 puff IH BID #1 inhaler 04/27/17 [SYMBICORT 160/4.5mcg -] Tiotropium [place] [Spiriva] 2 inh IH DAILY #30 cap.w.dev 01/22/18 Zolpidem Tartrate [Ambien] 10 mg PO HS 09/09/18 Aspirin [ASA -] 81 mg PO DAILY 01/28/19 Celecoxib 200 mg PO DAILY 01/28/19 Fenofibrate 50 mg PO DAILY 01/28/19 Risperidone 0.5 mg PO BID 01/28/19 ROS,FH,SH reviewd in chart NEUROLOGICAL EXAMINATION Alert oriented x 3, able to hold conversation, neck is supple, VSS, There is cheli-buccal dyskinesia were seen moving all extremity, no weakness identified sensation is noraml reflex are generalized diminished Assessment/Plan Difficulty walking, ? could be deconditioning , tardive dyskinesia. Clinically less likley to be NPH, given his co-morbidity and baseline ? dementia, He would not be a candidate for shunt surgery and patient is not interested in pursing spinal tap or shunt surgery Plan: I suggest to obtain mri ofbrain as suggested by radiologist to rule out aqueduct of sylvius stenosis - clinically no evidence of cord compression - PT - Artane 1 mg po bid can be added for tardive dyskinesia - Patient can be followed up with his psych and neurologist Thanking you so much Ron Pride MD
[2019-01-29] MEDS ORDERED: TIOTROPIUM BROMIDE 2.5 MCG (SPIRIVA) RESPIMAT INHALER IH SCH (10:00)
[2019-01-29] MEDS ORDERED: LISINOPRIL 10 MG TABLET (FP) PO SCH (10:00)
--- NOTE | 2019-01-29 13:17 | DS ---
Physical Exam: SUBJECTIVE: Patient seen and examined OBJECTIVE: Vital Signs Period Temp Pulse Resp BP Sys/Gonzales Pulse Ox Last 24 Hr 97.8 F-98.0 F 80-93 17-20 114-146/72-86 95 PHYSICAL EXAM GENERAL: The patient is awake, alert, and fully oriented, in no acute distress. HEAD: Normal with no signs of trauma. EYES: PERRL, extraocular movements intact, sclera anicteric, conjunctiva clear. ENT: Ears normal, nares patent, oropharynx clear without exudates, moist mucous membranes. NECK: Trachea midline, full range of motion, supple. LUNGS: Breath sounds equal, clear to auscultation bilaterally, no wheezes, no crackles, no accessory muscle use. HEART: Regular rate and rhythm, S1, S2 without murmur, rub or gallop. ABDOMEN: Soft, nontender, nondistended, normoactive bowel sounds, no guarding, no rebound, no hepatosplenomegaly, no masses. EXTREMITIES: 2+ pulses, warm, well-perfused, no edema. NEUROLOGICAL: Cranial nerves II through XII grossly intact. Normal speech, gait not observed. PSYCH: Normal mood, normal affect. SKIN: Warm, dry, normal turgor, no rashes or lesions noted. LABS Laboratory Results - last 24 hr 01/28/19 01/29/19 01/29/19 15:00 07:20 07:20 WBC 9.8 RBC 4.16 Hgb 13.5 Hct 40.2 MCV 96.8 H MCH 32.6 MCHC 33.7 RDW 12.7 Plt Count 322 MPV 7.1 L Absolute Neuts (auto) 7.6 Neutrophils % 77.1 Lymphocytes % 13.5 D Monocytes % 8.5 Eosinophils % 0.8 D Basophils % 0.1 Magnesium 2.1 Troponin I 0.03 HOSPITAL COURSE: Date of Admission:01/28/19 Date of Discharge: 01/29/19 Discharge Summary Reason For Visit: CHRONIC OBSTRUCTIVE PULMONARY DISEASE Current Active Problems COPD (chronic obstructive pulmonary disease) (Chronic) Condition: Stable - Instructions - Home Medications Comprehensive Discharge Medication List: Ambulatory Orders Escitalopram Oxalate [Lexapro -] 30 mg PO DAILY 04/29/14 Alprazolam [Xanax] 1 mg PO TID 11/19/14 Bupropion HCl [Wellbutrin Xl -] 300 mg PO DAILY 06/14/15 Lisinopril 10 mg PO DAILY 10/28/16 Clopidogrel Bisulfate [Plavix -] 75 mg PO DAILY 04/23/17 Budesonide/Formeterol Fumarate [SYMBICORT 160/4.5mcg -] 2 puff IH BID #1 inhaler 04/27/17 Tiotropium [place] [Spiriva] 2 inh IH DAILY #30 cap.w.dev 01/22/18 Zolpidem Tartrate [Ambien] 10 mg PO HS 09/09/18 Aspirin [ASA -] 81 mg PO DAILY 01/28/19 Celecoxib 200 mg PO DAILY 01/28/19 Fenofibrate 50 mg PO DAILY 01/28/19 Risperidone 0.5 mg PO BID 01/28/19 This patient is new to me today: No Emergency Visit: Yes ED Registration Date: 01/28/19 Care time: The patient presented to the Emergency Department on the above date and was hospitalized for further evaluation of their emergent condition. Critical Care patient: No - Discharge Referral Referred to [facility] Med [facility] No
[2019-01-29 14:25] VITALS: BP 109/71; PULSE 112; TEMP 98
== END 2019-01-29 18:36 | disposition home or self-care (01) | DRG 191 ==
LOC: FER 23:00 → FM/S 01-28 10:08
PROVIDERS: ADMIT Internal Medicine; ATTEND Nurse Practitioner Acute Care
DX: J44.1 Chronic obstructive pulmonary disease with (acute) exacerbation (principal); I50.30 Unspecified diastolic (congestive) heart failure; F20.0 Paranoid schizophrenia; R26.9 Unspecified abnormalities of gait and mobility; I10 Essential (primary) hypertension; E78.5 Hyperlipidemia, unspecified; I25.10 Atherosclerotic heart disease of native coronary artery without angina pectoris; Z98.61 Coronary angioplasty status; I11.0 Hypertensive heart disease with heart failure; F03.90 Unspecified dementia, unspecified severity, without behavioral disturbance, psychotic disturbance, mood disturbance, and anxiety; F41.8 Other specified anxiety disorders; Z91.14 Patient's other noncompliance with medication regimen
CPT/HCPCS: 36415; 70450-TC; 71045-TC-FY; 80053; 82550; 83735; 84484; 85025; 85027; 93005; 97116-GP; 97162-GP; 99283-25; J7030

== ENCOUNTER 2019-03-25 14:24 | Inpatient (IN) | payer OTHER, BC ==
[2019-03-25] MEDS ORDERED: ALBUTEROL SO4 2.5/IPRATROPIUM 0.5 INH SOL 3 ML VIAL.NEB. NEB ONE ×4 (14:27→15:22)
--- NOTE | 2019-03-25 14:28 | PDOC ---
History of Present Illness - General Chief Complaint: Shortness of Breath Stated Complaint: SOB Time Seen by Provider: 03/25/19 14:26 Past History - Past Medical History Allergies/Adverse Reactions: Allergies Allergy/AdvReac Type Severity Reaction Status Date / Time No Known Allergies Allergy Verified 03/25/19 14:26 Home Medications: Ambulatory Orders Escitalopram Oxalate [Lexapro -] 30 mg PO DAILY 04/29/14 Alprazolam [Xanax] 1 mg PO TID 11/19/14 Bupropion HCl [Wellbutrin Xl -] 300 mg PO DAILY 06/14/15 Lisinopril 10 mg PO DAILY 10/28/16 Clopidogrel Bisulfate [Plavix -] 75 mg PO DAILY 04/23/17 Budesonide/Formeterol Fumarate [SYMBICORT 160/4.5mcg -] 2 puff IH BID #1 inhaler 04/27/17 Tiotropium [place] [Spiriva] 2 inh IH DAILY #30 cap.w.dev 01/22/18 Aspirin [ASA -] 81 mg PO DAILY 01/28/19 Fenofibrate 50 mg PO DAILY 01/28/19 Risperidone 0.5 mg PO BID 01/28/19 Anemia: No Asthma: No Cancer: No Cardiac Disorders: Yes (cardiac [id number], history of [place] 2005) CVA: No COPD: Yes CHF: No DVT: No Dementia: (FORGETFUL) Diabetes: No GI Disorders: Yes (HEARTBURN) Disorders: No HTN: Yes Hypercholesterolemia: Yes Liver Disease: No Psychiatric Problems: Yes Seizures: No Thyroid Disease: No - Surgical History Abdominal Surgery: Yes (AAA 02/03/2017) Appendectomy: No Cardiac Surgery: Yes (cardiac stent 2005 & 04/2017) Cholecystectomy: No Lung Surgery: No Neurologic Surgery: No Orthopedic Surgery: No - Psycho Social/Smoking Cessation Hx Smoking Status: No Smoking History: Unknown if ever smoked Have you smoked in the past 12 months: No Number of Cigarettes Smoked Daily: 0 If you are a former smoker, when did you quit?: 2005 Hx Alcohol Use: No Drug/Substance Use Hx: No Substance Use Type: Alcohol Hx Substance Use Treatment: No
[2019-03-25] MEDS ORDERED: methylPREDNISolone NA SUCC 125 MG/2 ML VIAL IVPB ONE (14:43)
[2019-03-25] MEDS ORDERED: SODIUM CHLORIDE 0.9% 1000 ML INFUS.BAG IV ONE (14:43)
--- NOTE | 2019-03-25 15:06 | PDOC ---
History of Present Illness - General Chief Complaint: Shortness of Breath Stated Complaint: SOB Time Seen by Provider: 03/25/19 14:26 - History of Present Illness Initial Comments: 03/25/19 15:01 74yo male with hx of copd - follows with Dr. Hines presents c/o sob x 1 day. States he used his spiriva today and took prednisone 10mg without improvement. Did not use albuterol or his nebulizer at home. Pt denies assoc cp. No f/c. No cough. No abd pain. No n/v/d. Pt states he is eating and drinking normally - but has a dry cracked tongue and dry tachy mm. Pt denies ragland. No neck pain. No urinary complaints. Pt with mild conversational dyspnea and very diminished bs b /l bases. Pt denies all other complaints. 03/25/19 15:06 PMHx: HTN, HLD, CAD s/p [place] s/p stent 2005 s/p stent 2016, COPD, diastolic HF, AAA repair with stent, chronic hyponatremia, paranoid schizophrenia x 40 years, tardive dyskinesia, dementia, anxiety/depression Pshx: cardiac stents, aaa repair All: NKDA Past History - Past Medical History Allergies/Adverse Reactions: Allergies Allergy/AdvReac Type Severity Reaction Status Date / Time No Known Allergies Allergy Verified 03/25/19 14:26 Home Medications: Ambulatory Orders Escitalopram Oxalate [Lexapro -] 30 mg PO DAILY 04/29/14 Alprazolam [Xanax] 1 mg PO TID 11/19/14 Bupropion HCl [Wellbutrin Xl -] 300 mg PO DAILY 06/14/15 Lisinopril 10 mg PO DAILY 10/28/16 Clopidogrel Bisulfate [Plavix -] 75 mg PO DAILY 04/23/17 Budesonide/Formeterol Fumarate [SYMBICORT 160/4.5mcg -] 2 puff IH BID #1 inhaler 04/27/17 Tiotropium [place] [Spiriva] 2 inh IH DAILY #30 cap.w.dev 01/22/18 Aspirin [ASA -] 81 mg PO DAILY 01/28/19 Fenofibrate 50 mg PO DAILY 01/28/19 Risperidone 0.5 mg PO BID 01/28/19 Anemia: No Asthma: No Cancer: No Cardiac Disorders: Yes (cardiac [id number], history of [place] 2005) CVA: No COPD: Yes CHF: No DVT: No Dementia: (FORGETFUL) Diabetes: No GI Disorders: Yes (HEARTBURN) Disorders: No HTN: Yes Hypercholesterolemia: Yes Liver Disease: No Psychiatric Problems: Yes Seizures: No Thyroid Disease: No - Surgical History Abdominal Surgery: Yes (AAA 02/03/2017) Appendectomy: No Cardiac Surgery: Yes (cardiac stent 2005 & 04/2017) Cholecystectomy: No Lung Surgery: No Neurologic Surgery: No Orthopedic Surgery: No - Psycho Social/Smoking Cessation Hx Smoking Status: No Smoking History: Unknown if ever smoked Have you smoked in the past 12 months: No Number of Cigarettes Smoked Daily: 0 If you are a former smoker, when did you quit?: 2005 Hx Alcohol Use: No Drug/Substance Use Hx: No Substance Use Type: Alcohol Hx Substance Use Treatment: No Review of Systems - Review of Systems Able to Perform ROS?: Yes Is the patient limited Indonesian proficient: No Constitutional: No: Chills, Fever HEENTM: No: Nose Pain, Nose Congestion, Throat Pain, Throat Swelling Respiratory: Yes: Shortness of Breath, SOB with Exertion, SOB at Rest. No: Cough, Wheezing, Productive cough Cardiac (ROS): No: Chest Pain, Edema, Irregular Heart Rate, Palpitations ABD/GI: No: Abdominal Distended, Diarrhea, Nausea, Vomiting, Abdominal cramping : No: Burning, Dysuria Musculoskeletal: No: Back Pain, Neck Pain Integumentary: No: Rash Neurological: No: Headache, Numbness, Paresthesia, Seizure, Tingling, Weakness, Ataxia, Dizziness All Other Systems: Reviewed and Negative *Physical Exam - Physical Exam General Appearance: Yes: Nourished, Appropriately Dressed, Other (mild conversational dyspnea) HEENT: positive: EOMI, Other (dry cracked tongue and dry mm) Neck: positive: Supple. negative: Tender Respiratory/Chest: positive: Decreased Breath Sounds (diminished breath sounds b /l lung brownlee, moving air only in upper lung brownlee) Cardiovascular: positive: Regular Rhythm, Regular Rate, S1, S2. negative: Edema Gastrointestinal/Abdominal: negative: Tender, Guarding, Rebound, Tenderness Musculoskeletal: positive: Normal Inspection. negative: CVA Tenderness Extremity: positive: Normal Capillary Refill, Normal Inspection. negative: Swelling, Calf Tenderness Integumentary: positive: Other (dry tenting skin) Neurologic: positive: Alert, Normal Mood/Affect, Motor Strength 5/5, Other (no focal neuro findings) Heart Score/ECG Review - ECG Intrepretation Comment:: 03/25/19 15:11 sinus at 95, 1st degree av block, q waves inferior leads which are age indeterminate, no acute st/t wave findings ED Treatment Course - LABORATORY CBC & Chemistry Diagram: 03/25/19 15:30 03/25/19 15:30 - RADIOLOGY Radiology Studies Ordered: Category Date Time Status CHEST X-RAY PORTABLE* [RAD] Stat Radiology 03/25/19 14:43 Ordered Medical Decision Making - Medical Decision Making 03/25/19 15:14 a/p: 74yo male with hx of copd with increasing sob today -denies cp -very diminished bs -will give duonebs, steroids, ivf hydration -will send labs, ekg, cxr -will monitor and reassess -PULM Dr. Hines 03/25/19 15:31 case discussed with Aylin Hoskins who accepts pt to service for copd exacerbation pt udpated and agrees with the plan 03/25/19 15:33 cxr clear 03/25/19 16:35 labs reviewed at baseline cr no elevated wbc 03/25/19 16:37 pt agreeable to stay for further evaluation sodium 134 03/25/19 16:38 bs improved on re-eval, but still diminished Discharge - Discharge Information Problems reviewed: Yes Clinical Impression/Diagnosis: COPD exacerbation Condition: Fair - Admission Yes - Follow up/Referral - Patient Discharge Instructions - Post Discharge Activity
--- NOTE | 2019-03-25 15:27 | HP ---
CHIEF COMPLAINT: SOB PCP: Dr. Hogan HISTORY OF PRESENT ILLNESS: 73 year-old male with a PMH significant for HTN, HLD, CAD s/p [place] s/p stents 2005 , 2016, COPD, diastolic HF, AAA repair with stent, chronic hyponatremia, paranoid schizophrenia x 40 years, tardive dyskinesia, dementia, and anxiety/ depression. Presented to the ED for evaluation of SOB x 1 day. Stated he used his spiriva today and took prednisone 10mg without improvement. Did not use albuterol or his nebulizer at home. Denies fever, sweats, chills. Denies cough. 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, has support of 2 sisters and brother, Smoking: quit 2005 Alcohol: no Drugs: no Family History: mother with CARD and HTN; father liver cancer Allergies No Known Allergies Allergy (Verified 03/25/19 14:26) Verified HOME MEDICATIONS: Home Medications Medication Instructions Recorded Escitalopram Oxalate [Lexapro -] 30 mg PO DAILY 04/29/14 Alprazolam [Xanax] 1 mg PO TID 11/19/14 Bupropion HCl [Wellbutrin Xl -] 300 mg PO DAILY 06/14/15 Lisinopril 10 mg PO DAILY 10/28/16 Clopidogrel Bisulfate [Plavix -] 75 mg PO DAILY 04/23/17 Budesonide/Formeterol Fumarate 2 puff IH BID #1 inhaler 04/27/17 [SYMBICORT 160/4.5mcg -] Tiotropium [place] [Spiriva] 2 inh IH DAILY #30 cap.w.dev 01/22/18 Aspirin [ASA -] 81 mg PO DAILY 01/28/19 Fenofibrate 50 mg PO DAILY 01/28/19 Risperidone 0.5 mg PO BID 01/28/19 REVIEW OF SYSTEMS CONSTITUTIONAL: Absent: fever, chills, diaphoresis, generalized weakness, malaise, loss of appetite, weight change HEENT: Absent: rhinorrhea, nasal congestion, throat pain, throat swelling, difficulty swallowing, mouth swelling, ear pain, eye pain, visual changes CARDIOVASCULAR: Absent: chest pain, syncope, palpitations, irregular heart rate, lightheadedness , peripheral edema RESPIRATORY: +SOB Absent: cough, dyspnea with exertion, orthopnea, wheezing, stridor, hemoptysis GASTROINTESTINAL: Absent: abdominal pain, abdominal distension, nausea, vomiting, diarrhea, constipation, melena, hematochezia GENITOURINARY: Absent: dysuria, frequency, urgency, hesitancy, hematuria, flank pain, genital pain MUSCULOSKELETAL: Absent: myalgia, arthralgia, joint swelling, back pain, neck pain SKIN: Absent: rash, itching, pallor HEMATOLOGIC/IMMUNOLOGIC: Absent: easy bleeding, easy bruising, lymphadenopathy, frequent infections ENDOCRINE: Absent: unexplained weight gain, unexplained weight loss, heat intolerance, cold intolerance NEUROLOGIC: Absent: headache, focal weakness or paresthesias, dizziness, unsteady gait, seizure, mental status changes, bladder or bowel incontinence PSYCHIATRIC: Absent: anxiety, depression, suicidal or homicidal ideation, hallucinations. PHYSICAL EXAMINATION Vital Signs - 24 hr 03/25/19 14:25 Temperature 98 F Pulse Rate 90 Respiratory 20 Rate Blood Pressure 133/75 O2 Sat by Pulse 95 Oximetry (%) GENERAL: Awake, alert, and fully oriented, in no acute distress. HEAD: Normal with no signs of trauma. LUNGS: CTA HEART: Regular rate and rhythm, normal S1 and S2 ABDOMEN: Soft, nontender, not distended UPPER EXTREMITIES: 2+ pulses, warm, well-perfused. No cyanosis. No clubbing. No peripheral edema. LOWER EXTREMITIES: 2+ pulses, warm, well-perfused. No calf tenderness. No peripheral edema. NEUROLOGICAL: Cranial nerves II-XII intact. Normal speech. SKIN: Warm, dry, normal turgor ASSESSMENT/PLAN: 73 year-old male with a PMH significant for HTN, HLD, CAD s/p [place] s/p stents 2005 , 2016, COPD, diastolic HF, AAA repair with stent, chronic hyponatremia, paranoid schizophrenia x 40 years, tardive dyskinesia, dementia, and anxiety/ depression. Admitted for SOB. Shortness of breath COPD, chronic --CXR: unremarkable --satting 95% on room air --no wheezing --duonebs TID scheduled (ALLA/LICO) --continue Symbicort (ICS/LABA), Spiriva (LAMA) --pulmonary consult placed --pre post Elevated creatinine --Cr 1.5, baseline 1.2 --gentle IV fluids Hypertension --BP stable --continue Lisinopril Hyperlipidemia --continue fenofibrate Coronary artery disease s/p stents --continue ASA, Plavix, fenofibrate Diastolic heart failure --not on diuretics Paranoid schizophrenia Tardive dyskinesia Dementia Anxiety/depression --continued Wellbutrin, Lexapro, Risperidone FEN Fluids: PO intake adequate Electrolytes: replete as indicated Nutrition: low sodium DVT prophylaxis: subq heparin Physical therapy Dispo: continues to require inpatient care. Full code. Visit type - Emergency Visit Emergency Visit: Yes ED Registration Date: 03/25/19 Care time: The patient presented to the Emergency Department on the above date and was hospitalized for further evaluation of their emergent condition. - New Patient This patient is new to me today: Yes Date on this admission: 03/26/19 - Critical Care Critical Care patient: No
[2019-03-25] MEDS ORDERED: methylPREDNISolone NA SUCC 125 MG/2 ML VIAL ONE (15:38)
[2019-03-25 16:26] LABS: HEMATOCRIT 37.4 % (35.4-49); HEMOGLOBIN 12.6 GM/dl (11.7-16.9); MCH 32.7 pg (25.7-33.7); MCHC 33.8 g/dl (32.0-35.9); MEAN CELL VOLUME 96.8 fl (80-96); MEAN PLT VOLUME 7.4 fl (7.5-11.1); PLATELET COUNT 285 K/MM3 (134-434); RBC 3.86 M/mm3 (4.00-5.60); RDW 12.7 % (11.9-15.9); WHITE BLOOD COUNT 9.4 K/mm3 (4.0-10.8)
[2019-03-25 16:28] LABS: ALBUMIN 3.4 g/dl (3.4-5.0); BILIRUBIN,TOTAL 0.1 mg/dl (0.2-1); CALCIUM 8.6 mg/dl (8.5-10); CREATININE 1.5 mg/dl (0.55-1.3); POTASSIUM 4.9 mmol/L (3.5-5.1); TOT PROT 5.7 g/dl (6.4-8.2)
[2019-03-25 18:04] VITALS: BMI 30.3
[2019-03-25 19:22] LABS: PLATELET ESTIMATE ADEQUATE
[2019-03-25] MEDS ORDERED: PT OWN MED DRAWER 7, Y5N ONE (21:44)
[2019-03-25] MEDS: ALPRAZolam 1 MG TABLET PO SCH (21:45)
[2019-03-25] MEDS: risperiDONE 0.25 MG TABLET (FP) PO SCH (21:45)
[2019-03-25] MEDS: ALBUTEROL SO4 2.5/IPRATROPIUM 0.5 INH SOL 3 ML VIAL.NEB. NEB SCH (21:46)
[2019-03-25] MEDS ORDERED: BUDESONIDE/FORMETEROL FUMARATE 160/4.5 mcg INHALER IH SCH (22:00)
[2019-03-25] MEDS ORDERED: MELATONIN 5 MG TABLETS PO SCH (22:00)
[2019-03-26] MEDS: ALPRAZolam 1 MG TABLET PO SCH (06:51)
--- NOTE | 2019-03-26 07:06 | PN ---
Progress Note (short form) - Note Progress Note: PULMONARY CONSULTATION DICTATED 03/26/19 IMP COPD WITH ACUTE EXACERBATION ASHD S/P UT,S/P STENT AAA S/P REPAIR DIASTOLIC HF HTN TARDIVE DYSKINESIA H/O PARANOID SCHIZOPHRENIA ANXIETY SUDARSHAN H/O CHRONIC HYPONATREMIA PLAN INHALED BRONCHODILATORS,SYMBICORT,SPIRIVA,ALBUTEROL O2 CHEST CT IVF MONITOR LYTES,RENAL FUNCTION DR PHILLIP Problem List - Problems (1) Acute kidney failure Code(s): N17.9 - ACUTE KIDNEY FAILURE, UNSPECIFIED (2) SUDARSHAN (acute kidney injury) Code(s): N17.9 - ACUTE KIDNEY FAILURE, UNSPECIFIED (3) COPD exacerbation Code(s): J44.1 - CHRONIC OBSTRUCTIVE PULMONARY DISEASE W (ACUTE) EXACERBATION (4) Cough Code(s): R05 - COUGH (5) Shortness of breath Code(s): R06.02 - SHORTNESS OF BREATH (6) ASHD (arteriosclerotic heart disease) Code(s): I25.10 - ATHSCL HEART DISEASE OF [place] CORONARY ARTERY W/O ANG PCTRS (7) CAD (coronary artery disease) Code(s): I25.10 - ATHSCL HEART DISEASE OF [place] CORONARY ARTERY W/O ANG PCTRS (8) Depression Code(s): F32.9 - MAJOR DEPRESSIVE DISORDER, SINGLE EPISODE, UNSPECIFIED (9) Hypertension Code(s): I10 - ESSENTIAL (PRIMARY) HYPERTENSION (10) S/P AAA repair Code(s): Z98.890 - OTHER SPECIFIED POSTPROCEDURAL STATES; Z86.79 - PERSONAL HISTORY OF OTHER DISEASES OF THE CIRCULATORY SYSTEM (11) COPD exacerbation Code(s): J44.1 - CHRONIC OBSTRUCTIVE PULMONARY DISEASE W (ACUTE) EXACERBATION (12) Hyponatremia Code(s): E87.1 - HYPO-OSMOLALITY AND HYPONATREMIA
[2019-03-26] MEDS ORDERED: SODIUM CHLORIDE 500 ML IV SCH (08:00)
[2019-03-26] MEDS: ALBUTEROL SO4 2.5/IPRATROPIUM 0.5 INH SOL 3 ML VIAL.NEB. NEB SCH (08:10)
--- NOTE | 2019-03-26 08:19 | PN ---
Physical Exam: SUBJECTIVE: Patient seen and examined at bedside. Feeling well, no complaints. Would like to get home O2. OBJECTIVE: Vital Signs Period Temp Pulse Resp BP Sys/Gonzales Pulse Ox Last 24 Hr 97.3 F-98 F 54-90 18-21 105-133/55-75 95-98 GENERAL: Awake, alert, and fully oriented, in no acute distress. HEAD: Normal with no signs of trauma. LUNGS: CTA HEART: Regular rate and rhythm, normal S1 and S2 ABDOMEN: Soft, nontender, not distended UPPER EXTREMITIES: 2+ pulses, warm, well-perfused. No cyanosis. No clubbing. No peripheral edema. LOWER EXTREMITIES: 2+ pulses, warm, well-perfused. No calf tenderness. No peripheral edema. NEUROLOGICAL: Cranial nerves II-XII intact. Normal speech. SKIN: Warm, dry, normal turgor Laboratory Results - last 24 hr 03/25/19 03/25/19 03/25/19 15:30 15:30 15:30 WBC 9.4 RBC 3.86 L Hgb 12.6 Hct 37.4 MCV 96.8 H MCH 32.7 MCHC 33.8 RDW 12.7 Plt Count 285 MPV 7.4 L Absolute Neuts (auto) 8.6 Neutrophils % No Result Required. Neutrophils % (Manual) 92.0 H* Lymphocytes % No Result Required. Lymphocytes % (Manual) 5.0 L D Monocytes % (Manual) 3 L Platelet Estimate Adequate Sodium 134 L Potassium 4.9 Chloride 102 Carbon Dioxide 23 Anion Gap 9 BUN 30.0 H Creatinine 1.5 H Est GFR (CKD-EPI)AfAm 52.03 Est GFR (CKD-EPI)NonAf 44.89 Random Glucose 131 H Calcium 8.6 Total Bilirubin 0.1 L AST 17 ALT 14 Alkaline Phosphatase 50 Creatine Kinase 55 Troponin I < 0.03 B-Natriuretic Peptide Total Protein 5.7 L Albumin 3.4 03/25/19 15:30 WBC RBC Hgb Hct MCV MCH MCHC RDW Plt Count MPV Absolute Neuts (auto) Neutrophils % Neutrophils % (Manual) Lymphocytes % Lymphocytes % (Manual) Monocytes % (Manual) Platelet Estimate Sodium Potassium Chloride Carbon Dioxide Anion Gap BUN Creatinine Est GFR (CKD-EPI)AfAm Est GFR (CKD-EPI)NonAf Random Glucose Calcium Total Bilirubin AST ALT Alkaline Phosphatase Creatine Kinase Troponin I B-Natriuretic Peptide 338.4 Total Protein Albumin Active Medications Generic Name Dose Route Start Last Admin Trade Name Chaparroq PRN Reason Stop Dose Admin Albuterol/Ipratropium 1 amp 03/25/19 20:00 03/25/19 21:46 Duoneb - NEB 1 amp RTID FIDEL Administration Alprazolam 1 mg 03/25/19 22:00 03/26/19 06:51 Xanax PO 1 mg TID FIDEL Administration Aspirin 81 mg 03/26/19 10:00 Asa - PO DAILY [facility] Budesonide/Formoterol Fumarate 2 puff 03/25/19 22:00 Symbicort 160/4.5mcg - IH BID [facility] Bupropion HCl 300 mg 03/26/19 10:00 Wellbutrin Xl - PO DAILY [facility] Clopidogrel Bisulfate 75 mg 03/26/19 10:00 Plavix - PO DAILY [facility] Escitalopram Oxalate 30 mg 03/26/19 10:00 Lexapro - PO DAILY [facility] Fenofibric Acid 45 mg 03/26/19 10:00 Trilipix - PO DAILY [facility] Sodium Chloride 500 mls @ 100 mls/hr 03/26/19 08:00 Normal Saline - IV 03/26/19 12:59 ASDIR [facility] Lisinopril 10 mg 03/26/19 10:00 Prinivil PO DAILY [facility] Melatonin 10 mg 03/25/19 22:00 03/25/19 21:45 Melatonin PO 10 mg HS FIDEL Administration Risperidone 0.5 mg 03/25/19 22:00 03/25/19 21:45 Risperdal - PO 0.5 mg BID [facility] Administration Tiotropium [place] 2 puff 03/26/19 10:00 Spiriva Respimat IH DAILY [facility] ASSESSMENT/PLAN: 73 year-old male with a PMH significant for HTN, HLD, CAD s/p [place] s/p stents 2005 , 2017, COPD, diastolic HF, AAA repair with stent, chronic hyponatremia, paranoid schizophrenia x 40 years, tardive dyskinesia, dementia, and anxiety/ depression. Admitted for SOB. Shortness of breath COPD, chronic --CXR: unremarkable --satting 95% on room air --no wheezing --duonebs TID scheduled (ALLA/LICO) --continue Symbicort (ICS/LABA), Spiriva (LAMA) --pulmonary consult placed --pre post Elevated creatinine --Cr 1.5, baseline 1.2 --NS x 500mL Hypertension --BP stable --continue Lisinopril Hyperlipidemia --continue fenofibrate Coronary artery disease s/p stents --continue ASA, Plavix, fenofibrate Diastolic heart failure --not on diuretics Paranoid schizophrenia Tardive dyskinesia Dementia Anxiety/depression --continued Wellbutrin, Lexapro, Risperidone FEN Fluids: PO intake adequate Electrolytes: replete as indicated Nutrition: low sodium DVT prophylaxis: subq heparin Physical therapy Dispo: continues to require inpatient care. Full code. Visit type - Emergency Visit Emergency Visit: Yes ED Registration Date: 03/25/19 Care time: The patient presented to the Emergency Department on the above date and was hospitalized for further evaluation of their emergent condition. - New Patient This patient is new to me today: No - Critical Care Critical Care patient: No
[2019-03-26] MEDS ORDERED: PT OWN MED DRAWER 7, Y5N ONE (08:40)
[2019-03-26 09:16] VITALS: BP 112/47; PULSE 61; TEMP 97.9
[2019-03-26] MEDS: risperiDONE 0.25 MG TABLET (FP) PO SCH (09:27)
[2019-03-26] MEDS ORDERED: ESCITALOPRAM OXALATE 20 MG TABLET (FP) PO SCH (10:00)
[2019-03-26] MEDS ORDERED: FENOFIBRIC ACID 45 MG CAP PO SCH (10:00)
[2019-03-26] MEDS ORDERED: TIOTROPIUM BROMIDE 2.5 MCG (SPIRIVA) RESPIMAT INHALER IH SCH (10:00)
[2019-03-26] MEDS ORDERED: CLOPIDOGREL BISULFATE 75 MG TABLET (FP) PO SCH (10:00)
[2019-03-26] MEDS ORDERED: LISINOPRIL 10 MG TABLET (FP) PO SCH (10:00)
[2019-03-26] MEDS ORDERED: ASPIRIN 81 MG CHEWABLE TABLETS PO SCH (10:00)
[2019-03-26] MEDS ORDERED: ALBUTEROL SO4 0.083% IH SOL 2.5 MG/3 ML VIAL.NEB. NEB PRN (10:32)
--- NOTE | 2019-03-26 11:19 | EKG ---
Test Reason : Blood Pressure : / mmHG Vent. Rate : 095 BPM Atrial Rate : 095 BPM P-R Int : 216 ms QRS Dur : 086 ms QT Int : 360 ms P-R-T Axes : 000 -28 065 degrees QTc Int : 452 ms POOR DATA QUALITY, INTERPRETATION MAY BE ADVERSELY AFFECTED SINUS RHYTHM WITH SINUS ARRHYTHMIA WITH 1ST DEGREE A-V BLOCK INFERIOR INFARCT (CITED ON OR BEFORE 21-AUG-2016) ABNORMAL ECG WHEN COMPARED WITH ECG OF 28-JAN-2019 00:22, MINIMAL CRITERIA FOR ANTERIOR INFARCT ARE NO LONGER PRESENT Confirmed by MD Oj, Denilson ([id number]) on 03/26/2019 11:18:51 AM Referred By: EDNA FOWLER Confirmed By:Denilson Mcwilliams MD
--- NOTE | 2019-03-26 11:57 | DS ---
Physical Exam: SUBJECTIVE: Patient seen and examined. Feeling well, no complaints. OBJECTIVE: Vital Signs Period Temp Pulse Resp BP Sys/Gonzales Pulse Ox Last 24 Hr 97.3 F-98 F 54-90 18-21 105-133/47-75 95-98 PHYSICAL EXAM GENERAL: The patient is awake, alert, and fully oriented, in no acute distress. HEAD: Normal with no signs of trauma. EYES: PERRL, extraocular movements intact, sclera anicteric, conjunctiva clear. ENT: Ears normal, nares patent, oropharynx clear without exudates, moist mucous membranes. NECK: Trachea midline, full range of motion, supple. LUNGS: Breath sounds equal, clear to auscultation bilaterally, no wheezes, no crackles, no accessory muscle use. HEART: Regular rate and rhythm, S1, S2 without murmur, rub or gallop. ABDOMEN: Soft, nontender, nondistended, normoactive bowel sounds, no guarding, no rebound, no hepatosplenomegaly, no masses. EXTREMITIES: 2+ pulses, warm, well-perfused, no edema. NEUROLOGICAL: Cranial nerves II through XII grossly intact. Normal speech, gait not observed. PSYCH: Normal mood, normal affect. SKIN: Warm, dry, normal turgor, no rashes or lesions noted. LABS Laboratory Results - last 24 hr 03/25/19 03/25/19 03/25/19 15:30 15:30 15:30 WBC 9.4 RBC 3.86 L Hgb 12.6 Hct 37.4 MCV 96.8 H MCH 32.7 MCHC 33.8 RDW 12.7 Plt Count 285 MPV 7.4 L Absolute Neuts (auto) 8.6 Neutrophils % No Result Required. Neutrophils % (Manual) 92.0 H* Lymphocytes % No Result Required. Lymphocytes % (Manual) 5.0 L D Monocytes % (Manual) 3 L Platelet Estimate Adequate Sodium 134 L Potassium 4.9 Chloride 102 Carbon Dioxide 23 Anion Gap 9 BUN 30.0 H Creatinine 1.5 H Est GFR (CKD-EPI)AfAm 52.03 Est GFR (CKD-EPI)NonAf 44.89 Random Glucose 131 H Calcium 8.6 Total Bilirubin 0.1 L AST 17 ALT 14 Alkaline Phosphatase 50 Creatine Kinase 55 Troponin I < 0.03 B-Natriuretic Peptide Total Protein 5.7 L Albumin 3.4 03/25/19 15:30 WBC RBC Hgb Hct MCV MCH MCHC RDW Plt Count MPV Absolute Neuts (auto) Neutrophils % Neutrophils % (Manual) Lymphocytes % Lymphocytes % (Manual) Monocytes % (Manual) Platelet Estimate Sodium Potassium Chloride Carbon Dioxide Anion Gap BUN Creatinine Est GFR (CKD-EPI)AfAm Est GFR (CKD-EPI)NonAf Random Glucose Calcium Total Bilirubin AST ALT Alkaline Phosphatase Creatine Kinase Troponin I B-Natriuretic Peptide 338.4 Total Protein Albumin HOSPITAL COURSE: Date of Admission:03/25/19 Date of Discharge: 03/26/19 Pre hospital course 73 year-old male with a PMH significant for HTN, HLD, CAD s/p [place] s/p stents 2005 , 2016, COPD, diastolic HF, AAA repair with stent, chronic hyponatremia, paranoid schizophrenia x 40 years, tardive dyskinesia, dementia, and anxiety/ depression. Presented to the ED for evaluation of SOB x 1 day. Stated he used his spiriva today and took prednisone 10mg without improvement. Did not use albuterol or his nebulizer at home. Denies fever, sweats, chills. Denies cough. ER course (1) Cr 1.5 (baseline 1.2) (3) Solumedrol 125mg x 1; duonebs x 3 Subsequent hospital course 73 year-old male with a PMH significant for HTN, HLD, CAD s/p [place] s/p stents 2005 , 2016, COPD, diastolic HF, AAA repair with stent, chronic hyponatremia, paranoid schizophrenia x 40 years, tardive dyskinesia, dementia, and anxiety/ depression. Admitted for SOB. Shortness of breath COPD, chronic --CXR: unremarkable --satting 95% on room air --no wheezing --treated with solumedrol 125mg x 1, duonebs, Symbicort, Spiriva Elevated creatinine --Cr 1.5, baseline 1.2 --NS x 500mL given Hypertension --BP stable --continued Lisinopril Hyperlipidemia --continued fenofibrate Coronary artery disease s/p stents --continued ASA, Plavix, fenofibrate Diastolic heart failure --not on diuretics Paranoid schizophrenia Tardive dyskinesia Dementia Anxiety/depression --continued Wellbutrin, Lexapro, Risperidone Minutes to complete discharge: 35 Discharge Summary Problems reviewed: Yes Reason For Visit: ACUTE EXABERTION OF CHRONIC OBST.PULMONARY DISEASE Current Active Problems SUDARSHAN (acute kidney injury) (Acute) Acute kidney failure (Acute) COPD exacerbation (Acute) Condition: Improved - Instructions Referrals: Chandu Hogan MD [Staff Physician] - Disposition: HOME - Home Medications Comprehensive Discharge Medication List: Ambulatory Orders Escitalopram Oxalate [Lexapro -] 30 mg PO DAILY 04/29/14 Alprazolam [Xanax] 1 mg PO TID 11/19/14 Bupropion HCl [Wellbutrin Xl -] 300 mg PO DAILY 06/14/15 Lisinopril 10 mg PO DAILY 10/28/16 Clopidogrel Bisulfate [Plavix -] 75 mg PO DAILY 04/23/17 Budesonide/Formeterol Fumarate [SYMBICORT 160/4.5mcg -] 2 puff IH BID #1 inhaler 04/27/17 Tiotropium [place] [Spiriva] 2 inh IH DAILY #30 cap.w.dev 01/22/18 Aspirin [ASA -] 81 mg PO DAILY 01/28/19 Fenofibrate 50 mg PO DAILY 01/28/19 Risperidone 0.5 mg PO BID 01/28/19 This patient is new to me today: No Emergency Visit: Yes ED Registration Date: 03/25/19 Care time: The patient presented to the Emergency Department on the above date and was hospitalized for further evaluation of their emergent condition. Critical Care patient: No - Discharge Referral Referred to [facility] Med P.C.: No
--- NOTE | 2019-03-26 15:26 | CONS ---
PULMONARY CONSULTATION DATE OF CONSULTATION: 03/26/2019 REFERRING PROVIDER: Maureen Hoskins NP HISTORY OF PRESENT ILLNESS: The patient is a 74-year-old, white male known to me from previous hospitalization as well as office followup, with past medical history of advanced COPD, ASHD status post [place], status post stent in 2005 and 2016, diastolic heart failure, AAA status post repair with stent, chronic hyponatremia, paranoid schizophrenia for approximately 40 years, tardive dyskinesia, anxiety, depression, hypertension, hyperlipidemia, long-standing history of tobacco use (quit approximately 10 years ago), admitted to [facility] with complaint of increasing shortness of breath. Patient states that recently he has been developing progressive shortness of breath and dyspnea on exertion. I have not seen the patient in my office in a few years. He states that yesterday he started developing increasing shortness of breath, chest congestion, and he took a Spiriva inhaler and prednisone without any improvement. He denied any chest pain, nausea, vomiting or diaphoresis. He was unable to use albuterol, secondary to nebulizer not functioning. He presented to the emergency room with the above. In the ER, he was started on inhaled bronchodilators, given a dose of steroids, and transferred up to medical floor for further monitoring. Patient denies any fevers, chills, nausea , hemoptysis. Denies any chest pains or palpitations. PAST MEDICAL HISTORY: Again, includes advanced COPD, ASHD status post [place], status post stent in 2005 and 2016, hypertension, hyperlipidemia, AAA status post repair, diastolic heart failure, chronic hyponatremia, paranoid schizophrenia, tardive dyskinesia, anxiety, and depression. SOCIAL HISTORY: History of tobacco use; quit approximately 10 years ago. 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 CURRENT MEDICATIONS: Include Symbicort 160-4.5, Prinivil, Wellbutrin, Lexapro, Spiriva, Xanax, DuoNeb, normal saline, Trilipix, aspirin, melatonin, and Plavix. REVIEW OF SYSTEMS: Positive shortness of breath. Positive cough. No chest pain. No palpitations. No fever. No chills. No hemoptysis. No abdominal pain. PHYSICAL EXAMINATION: General: The patient is a well-developed, well-nourished male, awake, alert, in no acute distress. Vital Signs: He is currently afebrile, blood pressure is 112/47, respiratory rate is 19, O2 saturation is 95% on 2 L nasal cannula. HEENT: Exam is normocephalic, atraumatic. Neck: Supple. Heart: Regular S1 and S2. Chest: Diminished breath sounds bilateral. Abdomen: Soft. Bowel sounds are positive. Extremities: No cyanosis, edema. LABORATORIES: Chest x-ray atelectatic change of the left base which is new. Sodium is 134, BUN 30, creatinine 1.5. WBC is 9.4, hemoglobin 12.6, hematocrit 37.4, with a platelet count of 285,000; there are 9 polys, 5 lymphs, and 3 monocytes. IMPRESSION: 1. Chronic obstructive pulmonary disease with acute exacerbation. 2. Atherosclerotic heart disease. Status post myocardial infarction. Status post stent. 3. Abdominal aortic aneurysm. Status post repair. 4. Diastolic heart failure. 5. Hypertension. 6. History of paranoid schizophrenia. 7. Tardive dyskinesia. 8. Anxiety. 9. Acute kidney injury. 10. History of chronic hyponatremia. PLAN: Inhaled bronchodilators. Continue Symbicort, Spiriva, and albuterol. Discontinue DuoNeb currently on Spiriva. Continue supplemental O2. Chest CT. IV fluids. Monitor electrolytes, renal function. ELYSE PHILLIP M.D. JOSE ROBERTO/[id number] MTDD
== END 2019-03-26 12:40 | disposition home or self-care (01) | DRG 191 ==
LOC: FER 14:24 → FM/S 15:33 → UNDOADMIN 15:33 → FM/S 17:20
PROVIDERS: ADMIT Internal Medicine; ATTEND Nurse Practitioner Acute Care
DX: J44.1 Chronic obstructive pulmonary disease with (acute) exacerbation (principal); E87.1 Hypo-osmolality and hyponatremia; F20.0 Paranoid schizophrenia; I50.30 Unspecified diastolic (congestive) heart failure; N17.9 Acute kidney failure, unspecified; I25.10 Atherosclerotic heart disease of native coronary artery without angina pectoris; E78.5 Hyperlipidemia, unspecified; I25.2 Old myocardial infarction; G24.01 Drug induced subacute dyskinesia; F41.8 Other specified anxiety disorders; I11.0 Hypertensive heart disease with heart failure; K21.9 Gastro-esophageal reflux disease without esophagitis; F03.90 Unspecified dementia, unspecified severity, without behavioral disturbance, psychotic disturbance, mood disturbance, and anxiety; Z98.61 Coronary angioplasty status
CPT/HCPCS: 36415; 71045-TC-FY; 80053; 82550; 83880; 84484; 85025; 93005; 94640; 97116-GP; 97162-GP; 99285-25; J7030

== ENCOUNTER 2019-04-20 21:37 | Inpatient (IN) | payer OTHER, BC ==
--- NOTE | 2019-04-20 22:18 | PDOC ---
History of Present Illness - General Stated Complaint: FALL Time Seen by Provider: 04/20/19 22:05 History Source: Patient - History of Present Illness Initial Comments: 04/20/19 22:18 HPI: 74 y/o M with hx of HTN, HLD, CAD s/p [place] s/p stents 2005, 2017, COPD, diastolic HF, AAA repair with stent, chronic hyponatremia, paranoid schizophrenia x 40 years, tardive dyskinesia, and anxiety/depression presenting with an unwitnessed fall at home. He states he lost balance of his feet and fell down. He states he did not have any head trauma or LOC. He reports pain in his right hip and in his neck. He denies LH, GONZALEZ, dizziness, chest pain, SOB, abd pain, n/v , incontinence, seizure. He states he was on the ground for 3 hours because he wasnt able to move from the pain. Eventually he was able to crawl to the phone and call EMS. PMHx: as noted above ROS: as noted SHx: Denies tobacco use; no alcohol use; no rec drugs Allergies: NKDA ROS: GENERAL/CONSTITUTIONAL: No fever or chills. No weakness. HEAD, EYES, EARS, NOSE AND THROAT: No change in vision. No ear pain or discharge. No sore throat. CARDIOVASCULAR: No chest pain or shortness of breath RESPIRATORY: No cough, wheezing, or hemoptysis. GASTROINTESTINAL: No nausea, vomiting, diarrhea or constipation. GENITOURINARY: No dysuria, frequency, or change in urination. MUSCULOSKELETAL: +hip pain and neck pain. SKIN: No rash NEUROLOGIC: No headache, vertigo, loss of consciousness, or change in strength/ sensation. ENDOCRINE: No increased thirst. No abnormal weight change HEMATOLOGIC/LYMPHATIC: No anemia, easy bleeding, or history of blood clots. ALLERGIC/IMMUNOLOGIC: No hives or skin allergy. PE: GENERAL: Awake, alert, and fully oriented, no acute distress HEAD: No signs of trauma, normocephalic, atraumatic EYES: EOMI, sclera anicteric, conjunctiva clear ENT: Auricles normal inspection, hearing grossly normal, nares patent, oropharynx clear without exudates. dry mucosa NECK: Normal ROM, no lymphadenopathy, midline cervical tenderness LUNGS: No increased work of breathing, symmetrical chest rise, clear to auscultation bilaterally, no wheezes, crackles or rhonchi HEART: Regular rate and rhythm, normal S1 and S2, no murmurs, peripheral pulses 2+ and equal bilaterally. ABDOMEN: Soft, nondistended, nontender, normoactive bowel sounds. No guarding, no rebound. No masses. No CVAT EXTREMITIES: Normal inspection, Normal range of motion, no edema. No clubbing or cyanosis. ecchymosis on BL knees, FROM of knee and hip joints, no ttp, no deformities, T/L midline ttp NEUROLOGICAL: Cranial nerves II through XII grossly intact. Normal speech, normal gait, no focal sensorimotor deficits SKIN: Warm, Dry, normal turgor, no rashes or lesions noted 04/20/19 23:36 Past History - Past Medical History Allergies/Adverse Reactions: Allergies Allergy/AdvReac Type Severity Reaction Status Date / Time No Known Allergies Allergy Verified 03/25/19 14:26 Home Medications: Ambulatory Orders Escitalopram Oxalate [Lexapro -] 30 mg PO DAILY 04/29/14 Alprazolam [Xanax] 1 mg PO TID 11/19/14 Bupropion HCl [Wellbutrin Xl -] 300 mg PO DAILY 06/14/15 Lisinopril 10 mg PO DAILY 10/28/16 Clopidogrel Bisulfate [Plavix -] 75 mg PO DAILY 04/23/17 Budesonide/Formeterol Fumarate [SYMBICORT 160/4.5mcg -] 2 puff IH BID #1 inhaler 04/27/17 Tiotropium [place] [Spiriva] 2 inh IH DAILY #30 cap.w.dev 01/22/18 Aspirin [ASA -] 81 mg PO DAILY 01/28/19 Fenofibrate 50 mg PO DAILY 01/28/19 Risperidone 0.5 mg PO BID 01/28/19 Anemia: No Asthma: No Cancer: No Cardiac Disorders: Yes (cardiac [id number], history of [place] 2005) CVA: No COPD: Yes CHF: No DVT: No Dementia: (FORGETFUL) Diabetes: No GI Disorders: Yes (HEARTBURN) Disorders: No HTN: Yes Hypercholesterolemia: Yes Liver Disease: No Psychiatric Problems: Yes Seizures: No Thyroid Disease: No - Surgical History Abdominal Surgery: Yes (AAA 02/03/2017) Appendectomy: No Cardiac Surgery: Yes (cardiac stent 2005 & 04/2017) Cholecystectomy: No Lung Surgery: No Neurologic Surgery: No Orthopedic Surgery: No - Psycho Social/Smoking Cessation Hx Smoking Status: No Smoking History: Unknown if ever smoked Have you smoked in the past 12 months: No Number of Cigarettes Smoked Daily: 0 If you are a former smoker, when did you quit?: 2006 Hx Alcohol Use: No Drug/Substance Use Hx: No Substance Use Type: Alcohol Hx Substance Use Treatment: No ED Treatment Course - LABORATORY CBC & Chemistry Diagram: 04/20/19 23:25 04/20/19 23:25 Medical Decision Making - Medical Decision Making 04/20/19 23:36 74 y/o M with hx of HTN, HLD, CAD s/p [place] s/p stents 2005, 2016, COPD, diastolic HF, AAA repair with stent, chronic hyponatremia, paranoid schizophrenia x 40 years, tardive dyskinesia, and anxiety/depression presenting with an unwitnessed fall at home with complaints of right hip pain and neck pain. VSS, AF. PE with midline spinal ttp and BL knee ecchymosis -cbc, cmp, cardiac profile, ekg, cxr, pxr, right hip xr, mg, phos, coags, ua -CT head, C/T/L c spine 04/20/19 23:58 signed out to night team to followup CT, XR, labs and admit for unwitnessed fall vs syncope Discharge - Discharge Information Problems reviewed: Yes Clinical Impression/Diagnosis: Fall, Hip pain, right - Follow up/Referral - Patient Discharge Instructions - Post Discharge Activity
--- NOTE | 2019-04-20 23:02 | PDOC ---
Documentation entered by Neva Gray SCRIBE, acting as scribe for Faith Ames MD. Faith Ames MD: This documentation has been prepared by the Isaac cameron Xhesika, SCRIBE, under my direction and personally reviewed by me in its entirety. I confirm that the documentation accurately reflects all work, treatment, procedures, and medical decision making performed by me. Attending Attestation - Resident Resident Name: Manisha Quinn - ED Attending Attestation I have performed the following: I have examined & evaluated the patient, The case was reviewed & discussed with the resident, I agree w/resident's findings & plan, Exceptions are as noted - HPI HPI: 04/20/19 22:33 The patient is a 74 year old male with a significant PMH of HTN, HLD, CAD s/p [place] s/p stents 2005, 2016, COPD, diastolic HF, AAA repair with stent, chronic hyponatremia, paranoid schizophrenia x 40 years, tardive dyskinesia, dementia, and anxiety/depression who presents to the emergency department with R hip pain s/p mechanical fall at 5pm. Patient notes he was not able to move after his fall. Ultimately, after 3hrs patient was able to get his phone and call 911. Pt notes he lives alone. Pt denies chest pain, shortness of breath, headache and dizziness. Denies fever, chills, cough, nausea, vomiting, diarrhea and constipation. Denies dysuria, frequency, urgency and hematuria. Allergies: NKDA - Physicial Exam PE: 04/20/19 22:33 GENERAL: The patient is in no acute distress. HEAD: Normal EYES: PERRLA, EOMI, sclera anicteric, conjunctiva clear. ENT: Ears normal, nares patent, oropharynx clear without exudates. Very Dry mucous membranes. NECK: Normal range of motion, supple with midline tenderness LUNGS: Breath sounds equal, clear to auscultation bilaterally. No wheezes, and no crackles. HEART:Regular rate and rhythm, normal S1 and S2 without murmur, rub or gallop. ABDOMEN: Soft, nontender, normoactive bowel sounds. No guarding, no rebound. EXTREMITIES: Normal range of motion, no edema. NEUROLOGICAL: Cranial nerves II through XII grossly intact. Normal speech. No focal neurological deficits. MUSCULOSKELETAL: Back non-tender to palpation SKIN: Multiple bruises upper extremities, multiple abrasions 04/20/19 22:54 - Medical Decision Making 04/20/19 22:55 74 yo M with multiple medical problems presenting s/p unwitnessed fall (unclear circumstances) Pt was unable to get off the ground Bruising noted all over the body Will do: Labs EK CT head, C spine CXR, lumbar spine ReAssess 04/21/19 00:15 Laboratory Tests 03/25/19 03/25/19 04/20/19 15:30 15:30 23:25 WBC 10.9 H Hgb 12.6 16.0 Hct 37.4 47.4 Plt Count 285 282 BUN 30.0 H Creatinine 1.5 H 04/20/19 23:25 WBC Hgb Hct Plt Count BUN 24.8 H Creatinine 1.7 H 04/21/19 00:44 Laboratory Tests 04/20/19 04/20/19 23:25 23:25 Sodium 137 Potassium 4.2 Chloride 104 BUN 24.8 H Creatinine 1.7 H Random Glucose 76 Creatine Kinase 5695 H Troponin I 0.02 Labs reveal rhabdomyolysis Will gently hydrate - pt has a slight elevation in creatinine 04/21/19 01:09 Will admit for Rhabdo CT pelvis pending Will plan to admit Clinical impression: Fall from standing, initial presentation Rhabdomyolysis, initial presentation
[2019-04-20 23:34] LABS: BASO % 0.4 % (0-2.0); EOS % 1.2 % (0-4.5); HEMATOCRIT 47.4 % (35.4-49); LYMPH % 20.1 % (8-40); MCH 33.1 pg (25.7-33.7); MCHC 33.8 g/dl (32.0-35.9); MEAN PLT VOLUME 7.4 fl (7.5-11.1); MONO % 6.7 % (3.8-10.2); NEUT % 71.6 % (42.8-82.8); PLATELET COUNT 282 K/MM3 (134-434); RBC 4.83 M/mm3 (4.00-5.60); RDW 13.4 % (11.9-15.9); WHITE BLOOD COUNT 10.9 K/mm3 (4.0-10.0)
[2019-04-20 23:46] LABS: INR 0.92 (0.83-1.09); PROTHROMBIN TIME (PATIENT) 10.9 SEC (9.7-13.0)
[2019-04-20 23:49] LABS: ACTIVATED PTT 35.2 SECONDS (25.2-36.5)
[2019-04-20 23:54] VITALS: BMI 27.3
--- NOTE | 2019-04-20 23:57 | PDOC ---
ED Treatment Course - LABORATORY CBC & Chemistry Diagram: 04/20/19 23:25 04/20/19 23:25 - ADDITIONAL ORDERS Additional order review: Laboratory Results 04/20/19 23:25 PT with INR 10.90 INR 0.92 PTT (Actin FS) 35.2 04/20/19 23:25 RBC 4.83 MCV 98.0 H MCHC 33.8 RDW 13.4 MPV 7.4 L Neutrophils % 71.6 Lymphocytes % 20.1 D Monocytes % 6.7 Eosinophils % 1.2 Basophils % 0.4 D Medical Decision Making - Medical Decision Making 04/20/19 23:[address] Quinn. 74 y/o M hx of HTN, HLD, CAD s/p [place] s/p stents 2005, 2017, COPD, diastolic HF, AAA repair with stent, chronic hyponatremia, paranoid schizophrenia x 40 years, tardive dyskinesia, and anxiety/depression unwitnessed fall at home. no ambulation after incident was on the floor for hours before ems was contacted alert and oriented x3. denies loc, headache, chest pain, nausea vomiting complains of right hip pain Pending: CT's, X-rays, ekg and labs cbc: white count 10.9 might be a social admit/syncope 04/20/19 23:57 04/21/19 00:29 Trop negative x-rays, ct reads pending 04/21/19 00:44 EXAM: HEAD CT WITHOUT CONTRAST FINDINGS: Involutional changes with moderate ventriculomegaly. No hemorrhage. No acute abnormality. Osseous structures are intact. EXAM: CERVICAL SPINE CT W/O CONTR HISTORY: Unwitnessed fall COMPARISON: None. FINDINGS Negative for cervical spinal fracture or malalignment. C4?5 and possibly C3-4 disc protrusions. Blebs at the lung apices. Lumbar spine: Negative for lumbar spine fracture or acute malalignment. Slight anterolisthesis of L5 on S1. [place] to be degenerative. Degenerative changes L5-S1. Status post aortic stent. Urinary bladder is somewhat overdistended. Blebs of the lung apices noted 04/21/19 04:02 Ct pelvis done, read pending in imaging contract administrator. 04/21/19 04:[address] No fracture or dislocation of the pelvis or of the bilateral. Sclerotic focus of the superior acetabulum is likely a bone island but recommend follow-up. The urinary bladder is overdistended. Patient is status post aortoiliac stenting. 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 Therefore, I cannot evaluate stability of the aneurysm). Admitted for rhabdomyolysis and syncope Discharge - Discharge Information Clinical Impression/Diagnosis: Fall, Hip pain, right - Follow up/Referral - Patient Discharge Instructions - Post Discharge Activity
[2019-04-21 00:06] LABS: ALBUMIN 4.4 g/dl (3.4-5.0); BILIRUBIN,TOTAL 0.5 mg/dL (0.2-1); BLOOD UREA NITROGEN 24.8 mg/dL (7-18); CALCIUM 9.8 mg/dL (8.5-10.1); CREATININE 1.7 mg/dL (0.55-1.3); POTASSIUM 4.2 mmol/L (3.5-5.1); TOT PROT 7.5 g/dl (6.4-8.2)
[2019-04-21 00:14] LABS: PHOSPHOROUS 2.2 mg/dL (2.5-4.9)
[2019-04-21] MEDS ORDERED: SODIUM CHLORIDE 1,000 ML IV STA (00:45)
--- NOTE | 2019-04-21 02:55 | PN ---
Teaching Attending Note Name of Resident: Jesus Vaughn ATTENDING PHYSICIAN STATEMENT I saw and evaluated the patient. I reviewed the resident's note and discussed the case with the resident. I agree with the resident's findings and plan as documented. SUBJECTIVE: Patient is a 74 year old with PMH of HTN, HLD, CAD (s/p [place]/stents 2005, 2016), COPD, Diastolic CHF, AAA repair with stent, Chronic hyponatremia, Paranoid schizophrenia, Tardive dyskinesia, and Anxiety/depression presenting with an unwitnessed fall at home. He states he lost balance of his feet and fell down. He states he did not have any head trauma or LOC. He reports pain in his right hip and in his neck. He denies lightheadedness, headache, dizziness, chest pain , SOB, abdominal pain, nausea, vomiting, incontinence or seizure. He states he was on the ground for 3 hours because he was not able to move from the pain. Eventually he was able to crawl to the phone and call EMS. Denies tobacco, alcohol use or illicit drug use. No recent travel or sick contact. OBJECTIVE: Alert Vital Signs Period Temp Pulse Resp BP Sys/Gonzales Pulse Ox Last 24 Hr 97.8 F-98.2 F 90 16 117-120/82-84 98 HEENT: No Jaundice, eye redness or discharge, PERRLA, EOMI. Edentulous; Normocephalic, atraumatic. External ears are normal and hearing is grossly intact. No nasal discharge. Neck: Supple, nontender. No palpable adenopathy or thyromegaly. No JVD Chest: Good effort. Clear to auscultation and percussion. Heart: Regular. No S3, rub or murmur Abdomen: Not distended, soft, suprapubic tenderness and no HSM. No rebound or guarding. Normal bowel sounds. Ext: Peripheral pulses intact. No leg edema. Skin: Warm and dry. No petechiae, rash or ecchymosis. Neuro: Alert. Oriented x3. CN 2-12 grossly intact. Sensation grossly intact in all four extremities and DTR are symmetric. Psych: Appropriate mood and affect. Good insight. Current Medications Generic Name Dose Route Start Last Admin Trade Name Freq PRN Reason Stop Dose Admin Sodium Chloride 1,000 mls @ 75 mls/hr 04/21/19 00:45 04/21/19 01:07 Normal Saline - IV 04/21/19 14:04 75 mls/hr ASDIR STA Administration Home Medications Medication Instructions Recorded Escitalopram Oxalate [Lexapro -] 30 mg PO DAILY 04/29/14 Alprazolam [Xanax] 1 mg PO TID 11/19/14 Bupropion HCl [Wellbutrin Xl -] 300 mg PO DAILY 06/14/15 Lisinopril 10 mg PO DAILY 10/28/16 Clopidogrel Bisulfate [Plavix -] 75 mg PO DAILY 04/23/17 Budesonide/Formeterol Fumarate 2 puff IH BID #1 inhaler 04/27/17 [SYMBICORT 160/4.5mcg -] Tiotropium [place] [Spiriva] 2 inh IH DAILY #30 cap.w.dev 01/22/18 Aspirin [ASA -] 81 mg PO DAILY 01/28/19 Fenofibrate 50 mg PO DAILY 01/28/19 Risperidone 0.5 mg PO BID 01/28/19 Abnormal Lab Results 04/20/19 04/20/19 04/20/19 23:25 23:25 23:25 WBC 10.9 H MCV 98.0 H MPV 7.4 L BUN 24.8 H Creatinine 1.7 H Phosphorus 2.2 L AST 66 H Creatine Kinase 5695 H ASSESSMENT AND PLAN: 1. Fall/Rhabdomyolysis/SUDARSHAN - Unclear whether fall was "mechanical" or a syncopal episode. No acute abnormality on head CT; no fracture or subluxation on spine CT and hip/limb xrays didnot show any fracture. CXR shows cardiomegaly , hilar prominence and no significant infiltrates. EKG shows NSR with LAD, LVH and old inferior/anterior infarcts. Will investigate like a syncope - get carotid doppler, ECHO, monitor on telemetry. Will do neurochecks, implement fall precautions, hydrate with [place] lactate, monitor urine outputs, give neutraphos, monitor and replete electrolytes. Place a gutiérrez for urinary retention; send urinalysis stat; consult urology. Will consult nephrology and avoid nephrotoxic agents such as NSAIDS, aminoglycosides, contrast dyes and certain Alternative medicine products. Will continue comprehensive care for all of patients comorbid conditions. 2. Hypertension - Restart suitable outpatient antihypertensive drugs when clinically appropriate. Revise regimen to ensure [id number] excellent BP control and scholarship counselor patient on the injurious effects of uncontrolled hypertension. Nonpharmacologic measures to control hypertension like weight loss , salt restriction and exercise discussed. Importance of adherence to treatment regimen and attainment of normotension emphasized. 3. DVT prophylaxis - Lovenox 40 mg SQ q 24 hours. 4. Advance directives - Full code
[2019-04-21] MEDS ORDERED: NAPH,MB-DB/K PH,MBDB POWDER PACKET PO ONE (05:18)
--- NOTE | 2019-04-21 05:21 | PN ---
Physical Exam: SUBJECTIVE: Patient seen and examined OBJECTIVE: Vital Signs Period Temp Pulse Resp BP Sys/Gonzales Pulse Ox Last 24 Hr 97.8 F-98.2 F 80-90 16-20 117-134/82-90 98-98 GENERAL: The patient is awake, alert, and fully oriented, in no acute distress. HEAD: Normal with no signs of trauma. EYES: PERRL, extraocular movements intact, sclera anicteric, conjunctiva clear. No ptosis. ENT: Ears normal, nares patent, oropharynx clear without exudates, moist mucous membranes. NECK: Trachea midline, full range of motion, supple. LUNGS: Breath sounds equal, clear to auscultation bilaterally, no wheezes, no crackles, no accessory muscle use. HEART: Regular rate and rhythm, S1, S2 without murmur, rub or gallop. ABDOMEN: Soft, nontender, nondistended, normoactive bowel sounds, no guarding, no rebound, no hepatosplenomegaly, no masses. EXTREMITIES: 2+ pulses, warm, well-perfused, no edema. NEUROLOGICAL: Cranial nerves II through XII grossly intact. Normal speech, gait not observed. PSYCH: Normal mood, normal affect. SKIN: Warm, dry, normal turgor, no rashes or lesions noted Laboratory Results - last 24 hr 04/20/19 04/20/19 04/20/19 23:25 23:25 23:25 WBC 10.9 H RBC 4.83 Hgb 16.0 Hct 47.4 MCV 98.0 H MCH 33.1 MCHC 33.8 RDW 13.4 Plt Count 282 MPV 7.4 L Absolute Neuts (auto) 7.8 Neutrophils % 71.6 Lymphocytes % 20.1 D Monocytes % 6.7 Eosinophils % 1.2 Basophils % 0.4 D Nucleated RBC % 0 PT with INR INR PTT (Actin FS) Sodium 137 Potassium 4.2 Chloride 104 Carbon Dioxide 25 Anion Gap 8 BUN 24.8 H Creatinine 1.7 H Est GFR (CKD-EPI)AfAm 44.73 Est GFR (CKD-EPI)NonAf 38.59 Random Glucose 76 Calcium 9.8 Phosphorus Magnesium 2.2 Total Bilirubin 0.5 AST 66 H ALT 31 Alkaline Phosphatase 70 Creatine Kinase Creatine Kinase Index CK-MB (CK-2) Troponin I Total Protein 7.5 Albumin 4.4 04/20/19 04/20/19 23:25 23:25 WBC RBC Hgb Hct MCV MCH MCHC RDW Plt Count MPV Absolute Neuts (auto) Neutrophils % Lymphocytes % Monocytes % Eosinophils % Basophils % Nucleated RBC % PT with INR 10.90 INR 0.92 PTT (Actin FS) 35.2 Sodium Potassium Chloride Carbon Dioxide Anion Gap BUN Creatinine Est GFR (CKD-EPI)AfAm Est GFR (CKD-EPI)NonAf Random Glucose Calcium Phosphorus 2.2 L Magnesium Total Bilirubin AST ALT Alkaline Phosphatase Creatine Kinase 5695 H Creatine Kinase Index 0.0 CK-MB (CK-2) 2.5 Troponin I 0.02 Total Protein Albumin Active Medications Generic Name Dose Route Start Last Admin Trade Name Freq PRN Reason Stop Dose Admin Enoxaparin Sodium 40 mg 04/21/19 10:00 Lovenox - SQ DAILY FIDEL Sodium Chloride 1,000 mls @ 75 mls/hr 04/21/19 00:45 04/21/19 01:07 Normal Saline - IV 04/21/19 14:04 75 mls/hr ASDIR STA Administration Potassium Phos/Sodium Phos 1 packet 04/21/19 05:18 Phos-Nak Packet - PO 04/21/19 05:19 ONCE ONE ASSESSMENT/PLAN: ATTENDING PHYSICIAN STATEMENT I saw and evaluated the patient. I reviewed the resident's note and discussed the case with the resident. I agree with the resident's findings and plan as documented. SUBJECTIVE: OBJECTIVE: ASSESSMENT AND PLAN:
--- NOTE | 2019-04-21 05:38 | HP ---
CHIEF COMPLAINT: fall PCP: Dr. Hogan HISTORY OF PRESENT ILLNESS: Roberto Carlos Ann is a 74 year old male with a past medical history of HTN, HLD, CAD s/p [place] s/p stents 2005, 2017, COPD, diastolic HF, AAA repair with stent, chronic hyponatremia, paranoid schizophrenia x 40 years, tardive dyskinesia, and anxiety/depression who presented after having an unwitnessed fall. Patient is uncertain of how he fell but stated that he was reaching for an item on a shelf and then the next thing he knew he was on the floor. He does not know whether he tripped, slipped, or had a pre-syncopal episode, but denies loss of consciousness. He noted that he was on the floor for 3 hours before he was able to crawl to a phone and call EMS. Stated that he had hip pain but was able to move his extremity well. Denied any prodromal symptoms before the fall including palpitations, chest pain, diaphoresis, shortness of breath, nausea, vomiting, numbness, tingling. Denied sick contacts, recent illness, travel. At presentation, patient complains of pain in his hip, abdominal pressure. Endorses some urinary retention. Denies hematuria, dysuria. ER course was notable for: (1) WBC 10.9, CRE 1.7 (baseline 1.5-1.6), CPK 5695, P 2.2 (2) Head CT--> moderate ventriculomegaly, no acute pathology. Cervical spine CT- -> negative for fx, C4/C5 possible C3/C4 disc protrusion, blebs at lung apices Lumbar spine--> negative for fx, degenerative changes at L5/S1, urinary bladder distended. Pelvis CT--> no fx or dislocation of pelvis, sclerotic focus of superior acetabulum, urinary bladder distension, grindstone aortic aneurysm 7.3cm (3) Given NS Recent Travel: denies PAST MEDICAL HISTORY: as above PAST SURGICAL HISTORY: cardiac stents, AAA repair Social History: Smoking: former smoker, quit 14 years ago Alcohol: denies Drugs: denies Allergies No Known Allergies Allergy (Verified 03/25/19 14:26) Verified HOME MEDICATIONS: Home Medications Medication Instructions Recorded Escitalopram Oxalate [Lexapro -] 30 mg PO DAILY 04/29/14 Alprazolam [Xanax] 1 mg PO TID 11/19/14 Bupropion HCl [Wellbutrin Xl -] 300 mg PO DAILY 06/14/15 Lisinopril 10 mg PO DAILY 10/28/16 Clopidogrel Bisulfate [Plavix -] 75 mg PO DAILY 04/23/17 Budesonide/Formeterol Fumarate 2 puff IH BID #1 inhaler 04/27/17 [SYMBICORT 160/4.5mcg -] Tiotropium [place] [Spiriva] 2 inh IH DAILY #30 cap.w.dev 01/22/18 Aspirin [ASA -] 81 mg PO DAILY 01/28/19 Fenofibrate 50 mg PO DAILY 01/28/19 Risperidone 0.5 mg PO BID 01/28/19 REVIEW OF SYSTEMS CONSTITUTIONAL: Absent: fever, chills, diaphoresis, generalized weakness, malaise, loss of appetite, weight change HEENT: Absent: rhinorrhea, nasal congestion, throat pain, throat swelling, difficulty swallowing, mouth swelling, visual changes CARDIOVASCULAR: Absent: chest pain, syncope, palpitations, irregular heart rate, lightheadedness , peripheral edema RESPIRATORY: cough Absent: shortness of breath, dyspnea with exertion, orthopnea, wheezing, GASTROINTESTINAL: abdominal pressure (suprapubic) Absent: abdominal distension, nausea, vomiting, diarrhea, constipation, GENITOURINARY: hesitancy Absent: dysuria, frequency, urgency, hematuria, flank pain, MUSCULOSKELETAL: arthralgia (hip) Absent: myalgia, joint swelling, back pain, neck pain SKIN: Absent: rash, itching, pallor HEMATOLOGIC/IMMUNOLOGIC: Absent: easy bleeding, easy bruising, lymphadenopathy, frequent infections ENDOCRINE: Absent: unexplained weight gain, unexplained weight loss, heat intolerance, cold intolerance NEUROLOGIC: Absent: headache, focal weakness or paresthesias, dizziness, unsteady gait, seizure, mental status changes, PSYCHIATRIC: Absent: anxiety, depression, suicidal or homicidal ideation, hallucinations. PHYSICAL EXAMINATION Vital Signs - 24 hr 04/20/19 04/20/19 04/21/19 22:30 23:48 03:48 Temperature 97.8 F 98.2 F Pulse Rate [ 90 80 Right Radial] Respiratory 16 20 Rate Blood Pressure 117/84 Blood Pressure 120/82 134/90 [Left Arm] O2 Sat by Pulse 98 98 Oximetry (%) GENERAL: Awake, alert, and fully oriented, in no acute distress. HEAD: Normal with no signs of trauma. EYES: Pupils equal, round and reactive to light, extraocular movements intact, sclera anicteric, conjunctiva clear. No lid lag. EARS, NOSE, THROAT: Ears normal, nares patent, oropharynx clear without exudates. Moist mucous membranes. NECK: Normal range of motion, supple without lymphadenopathy, JVD, or masses. LUNGS: Breath sounds equal, clear to auscultation bilaterally. No wheezes, and no crackles. No accessory muscle use. HEART: Regular rate and rhythm, normal S1 and S2 without murmur, rub or gallop. ABDOMEN: Soft, nontender, not distended, normoactive bowel sounds, no guarding, no rebound, no masses. No hepatomegaly or splenomegaly. MUSCULOSKELETAL: Normal range of motion at all joints. No bony deformities or tenderness. No CVA tenderness. UPPER EXTREMITIES: 2+ pulses, warm, well-perfused. No cyanosis. No clubbing. No peripheral edema. LOWER EXTREMITIES: 2+ pulses, warm, well-perfused. No calf tenderness. No peripheral edema. NEUROLOGICAL: Cranial nerves II-XII intact. Normal speech. Normal gait. PSYCHIATRIC: Cooperative. Good eye contact. Appropriate mood and affect. SKIN: Warm, dry, normal turgor, no rashes or lesions noted, normal capillary refill. Laboratory Results - last 24 hr 04/20/19 04/20/19 04/20/19 23:25 23:25 23:25 WBC 10.9 H RBC 4.83 Hgb 16.0 Hct 47.4 MCV 98.0 H MCH 33.1 MCHC 33.8 RDW 13.4 Plt Count 282 MPV 7.4 L Absolute Neuts (auto) 7.8 Neutrophils % 71.6 Lymphocytes % 20.1 D Monocytes % 6.7 Eosinophils % 1.2 Basophils % 0.4 D Nucleated RBC % 0 PT with INR INR PTT (Actin FS) Sodium 137 Potassium 4.2 Chloride 104 Carbon Dioxide 25 Anion Gap 8 BUN 24.8 H Creatinine 1.7 H Est GFR (CKD-EPI)AfAm 44.73 Est GFR (CKD-EPI)NonAf 38.59 Random Glucose 76 Calcium 9.8 Phosphorus Magnesium 2.2 Total Bilirubin 0.5 AST 66 H ALT 31 Alkaline Phosphatase 70 Creatine Kinase Creatine Kinase Index CK-MB (CK-2) Troponin I Total Protein 7.5 Albumin 4.4 04/20/19 04/20/19 23:25 23:25 WBC RBC Hgb Hct MCV MCH MCHC RDW Plt Count MPV Absolute Neuts (auto) Neutrophils % Lymphocytes % Monocytes % Eosinophils % Basophils % Nucleated RBC % PT with INR 10.90 INR 0.92 PTT (Actin FS) 35.2 Sodium Potassium Chloride Carbon Dioxide Anion Gap BUN Creatinine Est GFR (CKD-EPI)AfAm Est GFR (CKD-EPI)NonAf Random Glucose Calcium Phosphorus 2.2 L Magnesium Total Bilirubin AST ALT Alkaline Phosphatase Creatine Kinase 5695 H Creatine Kinase Index 0.0 CK-MB (CK-2) 2.5 Troponin I 0.02 Total Protein Albumin EKG--> NSR, LVH, age indeterminate inferior infarct, anterior infarct, no ST segment changes QTc 450 ASSESSMENT/PLAN: Roberto Carlos Ann is a 74 year old male with a past medical history of HTN, HLD, CAD s/p [place] s/p stents 2005, 2017, COPD, diastolic HF, AAA repair with stent, chronic hyponatremia, paranoid schizophrenia x 40 years, tardive dyskinesia, and anxiety/depression admitted for rhabdomyolysis secondary to fall of unknown origin. Rhabdomyolysis secondary to fall - continue LR at 75cc/hr - gutiérrez in due to retention - I+Os - repeat CPK ? 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 - neurochecks - fall precautions - UA, UCx - CT head, cervical negative - CT pelvis negative for fracture Leukocytosis - likely reactive to fall - UA, Ucx - remains afebrile, observe off abx SUDARSHAN on CKD - baseline CRE 1.5-1.6 - continue hydration - monitor for improvement of SUDARSHAN - gutiérrez in due to bladder distension and retention - nephrology consulted HTN/HLD/COPD - restart home meds when reconciled FEN - LR at 75cc/hr - hypophosphatemia noted and repleted, continue to monitor electrolytes and replete as necessary - Fat/sodium controlled diet Prophylaxis - Lovenox 40 MEq daily Dispo - continue to monitor on telemetry - needs to be med-reced, attempted overnight, pharmacy computer down Family Medical History Family History: Denies Visit type - Emergency Visit Emergency Visit: Yes ED Registration Date: 04/21/19 Care time: The patient presented to the Emergency Department on the above date and was hospitalized for further evaluation of their emergent condition. - New Patient This patient is new to me today: Yes Date on this admission: 04/21/19 - Critical Care Critical Care patient: No
[2019-04-21 06:12] LABS: URINE APPEARANCE CLEAR; URINE BILIRUBIN NEGATIVE (NEGATIVE); URINE COLOR YELLOW; URINE GLUCOSE (UA) NEGATIVE (NEGATIVE); URINE KETONE NEGATIVE (NEGATIVE); URINE LEUK ESTERASE NEGATIVE (NEGATIVE); URINE NITRITE NEGATIVE (NEGATIVE); URINE PROTEIN NEGATIVE (NEGATIVE); URINE UROBILINOGEN 0.2 mg/dL (0.2-1.0)
[2019-04-21 06:42] LABS: BASO % 0.5 % (0-2.0); EOS % 1.1 % (0-4.5); HEMATOCRIT 42.7 % (35.4-49); HEMOGLOBIN 14.6 GM/dL (11.7-16.9); LYMPH % 9.8 % (8-40); MCH 33.3 pg (25.7-33.7); MCHC 34.3 g/dl (32.0-35.9); MEAN CELL VOLUME 97.2 fl (80-96); MEAN PLT VOLUME 7.4 fl (7.5-11.1); MONO % 7.7 % (3.8-10.2); NEUT % 80.9 % (42.8-82.8); PLATELET COUNT 253 K/MM3 (134-434); RBC 4.39 M/mm3 (4.00-5.60); RDW 13.6 % (11.9-15.9)
[2019-04-21 07:20] LABS: ALBUMIN 3.8 g/dl (3.4-5.0); BILIRUBIN,TOTAL 0.5 mg/dL (0.2-1); BLOOD UREA NITROGEN 21.1 mg/dL (7-18); CALCIUM 9.2 mg/dL (8.5-10.1); CREATININE 1.6 mg/dL (0.55-1.3); MAGNESIUM 2.1 mg/dL (1.8-2.4); POTASSIUM 4.4 mmol/L (3.5-5.1); TOT PROT 6.2 g/dl (6.4-8.2)
[2019-04-21] MEDS ORDERED: LACTATED RINGERS SOLUTION 1,000 ML/1,000 ML INFUS.BAG IV SCH (07:30)
[2019-04-21] MEDS ORDERED: ENOXAPARIN NA (PORCINE) 40 MG/0.4 ML DISP.SYRIN SQ ONE (07:43)
[2019-04-21] MEDS ORDERED: ENOXAPARIN NA (PORCINE) 40 MG/0.4 ML DISP.SYRIN SQ SCH (10:00)
--- NOTE | 2019-04-21 13:26 | CON.NEP ---
Consult Consult Specialty:: nephrology Reason for Consultation:: ckd/nia - History of Present Illness Chief Complaint: s/p fall History of Present Illness: This is a 74 year old male with a past medical history of HTN, HLD, CAD s/p [place] s /p stents 2005, 2016, COPD, diastolic HF, AAA repair with stent, chronic hyponatremia, paranoid schizophrenia x 40 years, tardive dyskinesia, and anxiety /depression who presented after having an unwitnessed fall. Patient is uncertain of how he fell but stated that he was reaching for an item on a shelf and then the next thing he knew he was on the floor. He does not know whether he tripped, slipped, or had a pre-syncopal episode, but denies loss of consciousness. He noted that he was on the floor for 3 hours before he was able to crawl to a phone and call EMS. Stated that he had hip pain but was able to move his extremity well. Says he feels well and want s to go home. 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) Cardio/Vascular: Yes: CAD, HTN, Hyperlipdemia, [place] Pulmonary: Yes: COPD Gastrointestinal: Yes: Other (umbilical hernia) Psych: Yes: Anxiety, Depression - Past Surgical History Past Surgical History: Yes: Stent - Alcohol/Substance Use Hx Alcohol Use: No History of Substance Use: reports: None - Smoking History Smoking history: Unknown if ever smoked Have you smoked in the past 12 months: No Aproximately how many cigarettes per day: 0 If you are a former smoker, when did you quit?: 2005 - Social History ADL: Independent 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 History of Recent Travel: No Home Medications - Allergies Allergies/Adverse Reactions: Allergies Allergy/AdvReac Type Severity Reaction Status Date / Time No Known Allergies Allergy Verified 03/25/19 14:26 - Home Medications Home Medications: Ambulatory Orders Escitalopram Oxalate [Lexapro -] 30 mg PO DAILY 04/29/14 Alprazolam [Xanax] 1 mg PO TID 11/19/14 Bupropion HCl [Wellbutrin Xl -] 300 mg PO DAILY 06/14/15 Lisinopril 10 mg PO DAILY 10/28/16 Clopidogrel Bisulfate [Plavix -] 75 mg PO DAILY 04/23/17 Budesonide/Formeterol Fumarate [SYMBICORT 160/4.5mcg -] 2 puff IH BID #1 inhaler 04/27/17 Tiotropium [place] [Spiriva] 2 inh IH DAILY #30 cap.w.dev 01/22/18 Aspirin [ASA -] 81 mg PO DAILY 01/28/19 Fenofibrate 50 mg PO DAILY 01/28/19 Risperidone 0.5 mg PO BID 01/28/19 Review of Systems - Review of Systems Constitutional: reports: No Symptoms Eyes: reports: No Symptoms HENT: reports: No Symptoms Neck: reports: No Symptoms Cardiovascular: reports: No Symptoms Respiratory: reports: No Symptoms Gastrointestinal: reports: No Symptoms Genitourinary: reports: No Symptoms Musculoskeletal: reports: Joint Pain Integumentary: reports: No Symptoms Neurological: reports: No Symptoms Endocrine: reports: No Symptoms Hematology/Lymphatic: reports: No Symptoms Psychiatric: reports: No Symptoms Nephrology Consult - Height Height: 5 ft 9 in - Weight Weight: 185 lb - BMI Body Mass Index (BMI): 27.3 - Lab Results CBC,BMP: CBC, BMP 04/21/19 06:18 04/21/19 06:18 Anion Gap: Anion Gap Anion Gap 9 MMOL/L (8-16) 04/21/19 06:18 - Imaging Chest X-ray: Report Reviewed (no acute changes) X-ray: Report Reviewed (no hip fracture) Cat Scan: Pending - Physical Examination Vital Signs: Vital Signs Temperature 98.0 F 04/21/19 10:25 Pulse Rate 97 H 04/21/19 10:25 Respiratory Rate 19 04/21/19 10:25 Blood Pressure 123/80 04/21/19 10:25 O2 Sat by Pulse Oximetry (%) 99 04/21/19 10:25 Constitutional: Yes: Well Nourished, No Distress, Calm, Other (uncontrolled rhythmic movements of tongue) Eyes: Yes: Conjunctiva Clear, EOM Intact HENT: Yes: Atraumatic, Normocephalic Neck: Yes: Supple, Trachea Midline Cardiovascular: Yes: Regular Rate and Rhythm Respiratory: Yes: Regular, CTA Bilaterally Gastrointestinal: Yes: Normal Bowel Sounds Renal/: Yes: WNL Musculoskeletal: Yes: WNL Extremities: Yes: WNL Edema: No Integumentary: Yes: WNL Wound/Incision: Yes: Clean/Dry Neurological: Yes: Alert, Oriented Psychiatric: Yes: Alert Assessment/Plan IMPRESSION s/p fall mild rhabdo CKD with creat close to baseline of around 1.5 schizophrenia CAD CKD non proteinuric could be due to vascular causes given previous AAA repair and stent placement PLAN would keep on fluids replace phos since hypophosphatemia is associated with rhabdo would place fluids on a pump MV
[2019-04-21] MEDS ORDERED: SODIUM CHLORIDE 1,000 ML IV SCH (13:45)
[2019-04-21 13:56] LABS: PHOSPHOROUS 2.9 mg/dL (2.5-4.9)
[2019-04-21 16:01] VITALS: BP 130/67; PULSE 83; TEMP 98.2
[2019-04-21] MEDS ORDERED: ESCITALOPRAM OXALATE 10 MG TABLET (FP) PO SCH (17:00)
[2019-04-21] MEDS ORDERED: CLOPIDOGREL BISULFATE 75 MG TABLET (FP) PO SCH (17:00)
[2019-04-21] MEDS ORDERED: TIOTROPIUM BROMIDE IH SCH (17:00)
[2019-04-21] MEDS ORDERED: LISINOPRIL 10 MG TABLET (FP) PO SCH (17:00)
[2019-04-21] MEDS ORDERED: FENOFIBRATE 50 MG PO SCH (17:00)
[2019-04-21] MEDS ORDERED: FENOFIBRIC ACID 45 MG CAP PO SCH (17:15)
[2019-04-21] MEDS ORDERED: TIOTROPIUM BROMIDE 2.5 MCG (SPIRIVA) RESPIMAT INHALER IH SCH (17:30)
--- NOTE | 2019-04-21 17:38 | HOSP ---
Subjective - Review of Symptoms Events since last encounter: I went down to the emergency room to speak with the patient and his family regarding risks and benefits of leaving against medical advise. By the time I arrived to the Emergency department, pt had Eloped. We looked for the pt, so did the nurses, pt was no where to be found. Pt was reported to have eloped. Physical Examination Vital Signs: Vital Signs Temperature 98.2 F 04/21/19 15:59 Pulse Rate 83 04/21/19 15:59 Respiratory Rate 19 04/21/19 15:59 Blood Pressure 130/67 04/21/19 15:59 O2 Sat by Pulse Oximetry (%) 100 04/21/19 15:59 Labs: CBC, BMP 04/21/19 06:18 04/21/19 06:18
--- NOTE | 2019-04-21 18:22 | DS ---
Physical Exam: SUBJECTIVE: Feels well, wants to go home. No complaints. reports mechanical fall and inability to get himself up from the floor. Denies HI or LOC. No fever/ chills/cough/sputum. No abdominal pain/dysuria/diarrhea. no headache/visual disturbance. OBJECTIVE: Afebrile, Hemodynamically Stable. Vital Signs Period Temp Pulse Resp BP Sys/Gonzales Pulse Ox Last 24 Hr 97.8 F-98.2 F 80-97 15-20 117-141/67-90 98-100 PHYSICAL EXAM General - Awake, Alert, Oriented x 3. Neuro - Tone/Power normal all extremities, CHARAN, EOMI, tardive dyskinesia Heart - S1, S2, RRR Lungs - clear to auscultation Abdomen - Soft, non-tender. Bowel Sounds normal. Extremities - no calf tenderness. No edema, Some bruising bilateral knees. LABS Laboratory Results - last 24 hr 04/20/19 04/20/19 04/20/19 23:25 23:25 23:25 WBC 10.9 H RBC 4.83 Hgb 16.0 Hct 47.4 MCV 98.0 H MCH 33.1 MCHC 33.8 RDW 13.4 Plt Count 282 MPV 7.4 L Absolute Neuts (auto) 7.8 Neutrophils % 71.6 Lymphocytes % 20.1 D Monocytes % 6.7 Eosinophils % 1.2 Basophils % 0.4 D Nucleated RBC % 0 PT with INR INR PTT (Actin FS) Sodium 137 Potassium 4.2 Chloride 104 Carbon Dioxide 25 Anion Gap 8 BUN 24.8 H Creatinine 1.7 H Est GFR (CKD-EPI)AfAm 44.73 Est GFR (CKD-EPI)NonAf 38.59 Random Glucose 76 Calcium 9.8 Phosphorus Magnesium 2.2 Total Bilirubin 0.5 AST 66 H ALT 31 Alkaline Phosphatase 70 Creatine Kinase Creatine Kinase Index CK-MB (CK-2) Troponin I Total Protein 7.5 Albumin 4.4 TSH Urine Color Urine Appearance Urine pH Ur Specific [place] Urine Protein Urine Glucose (UA) Urine Ketones Urine Blood Urine Nitrite Urine Bilirubin Urine Urobilinogen Ur Leukocyte Esterase 04/20/19 04/20/19 04/21/19 23:25 23:25 05:30 WBC RBC Hgb Hct MCV MCH MCHC RDW Plt Count MPV Absolute Neuts (auto) Neutrophils % Lymphocytes % Monocytes % Eosinophils % Basophils % Nucleated RBC % PT with INR 10.90 INR 0.92 PTT (Actin FS) 35.2 Sodium Potassium Chloride Carbon Dioxide Anion Gap BUN Creatinine Est GFR (CKD-EPI)AfAm Est GFR (CKD-EPI)NonAf Random Glucose Calcium Phosphorus 2.2 L Magnesium Total Bilirubin AST ALT Alkaline Phosphatase Creatine Kinase 5695 H Creatine Kinase Index 0.0 CK-MB (CK-2) 2.5 Troponin I 0.02 Total Protein Albumin TSH Urine Color Yellow Urine Appearance Clear Urine pH 5.0 Ur Specific [place] 1.009 L Urine Protein Negative Urine Glucose (UA) Negative Urine Ketones Negative Urine Blood Negative Urine Nitrite Negative Urine Bilirubin Negative Urine Urobilinogen 0.2 Ur Leukocyte Esterase Negative 04/21/19 04/21/19 06:18 06:18 WBC 10.0 RBC 4.39 Hgb 14.6 Hct 42.7 MCV 97.2 H MCH 33.3 MCHC 34.3 RDW 13.6 Plt Count 253 MPV 7.4 L Absolute Neuts (auto) 8.1 H Neutrophils % 80.9 Lymphocytes % 9.8 D Monocytes % 7.7 Eosinophils % 1.1 Basophils % 0.5 Nucleated RBC % 0 PT with INR INR PTT (Actin FS) Sodium 138 Potassium 4.4 Chloride 104 Carbon Dioxide 26 Anion Gap 9 BUN 21.1 H Creatinine 1.6 H Est GFR (CKD-EPI)AfAm 48.13 Est GFR (CKD-EPI)NonAf 41.53 Random Glucose 103 Calcium 9.2 Phosphorus 2.9 Magnesium 2.1 Total Bilirubin 0.5 AST 80 H ALT 30 Alkaline Phosphatase 62 Creatine Kinase 5378 H Creatine Kinase Index 0.0 CK-MB (CK-2) 2.4 Troponin I Total Protein 6.2 L Albumin 3.8 TSH 0.95 D Urine Color Urine Appearance Urine pH Ur Specific [place] Urine Protein Urine Glucose (UA) Urine Ketones Urine Blood Urine Nitrite Urine Bilirubin Urine Urobilinogen Ur Leukocyte Esterase Date of Admission:04/21/19 Date of Discharge: 04/21/19 Minutes to complete discharge: 40 Discharge Summary Problems reviewed: Yes Reason For Visit: RHABDOMYOLYSIS Current Active Problems Fall (Acute) Hip pain, right (Acute) Condition: Guarded - Instructions Disposition: AGAINST MEDICAL ADVICE - Home Medications Comprehensive Discharge Medication List: Ambulatory Orders Escitalopram Oxalate [Lexapro -] 30 mg PO DAILY 04/29/14 Alprazolam [Xanax] 1 mg PO TID 11/19/14 Bupropion HCl [Wellbutrin Xl -] 300 mg PO DAILY 06/14/15 Lisinopril 10 mg PO DAILY 10/28/16 Clopidogrel Bisulfate [Plavix -] 75 mg PO DAILY 04/23/17 Budesonide/Formeterol Fumarate [SYMBICORT 160/4.5mcg -] 2 puff IH BID #1 inhaler 04/27/17 Tiotropium [place] [Spiriva] 2 inh IH DAILY #30 cap.w.dev 01/22/18 Aspirin [ASA -] 81 mg PO DAILY 01/28/19 Fenofibrate 50 mg PO DAILY 01/28/19 Risperidone 0.5 mg PO BID 01/28/19
[2019-04-21] MEDS ORDERED: BUDESONIDE/FORMETEROL FUMARATE 160/4.5 mcg INHALER IH SCH (22:00)
[2019-04-21] MEDS ORDERED: ALPRAZolam 1 MG TABLET PO SCH (22:00)
[2019-04-21] MEDS ORDERED: PATIENT'S OWN MEDICATION (NON-FORMULARY) (Alprazolam [Xanax] 1 MG) PO SCH (22:00)
[2019-04-21] MEDS ORDERED: risperiDONE 0.5 MG TABLET (FP) PO SCH (22:00)
--- NOTE | 2019-04-22 00:59 | EKG ---
Test Reason : Blood Pressure : / mmHG Vent. Rate : 087 BPM Atrial Rate : 087 BPM P-R Int : 208 ms QRS Dur : 090 ms QT Int : 370 ms P-R-T Axes : 043 -41 015 degrees QTc Int : 445 ms SINUS RHYTHM WITH OCCASIONAL PREMATURE VENTRICULAR COMPLEXES LEFT AXIS DEVIATION MINIMAL VOLTAGE CRITERIA FOR LVH, MAY BE NORMAL VARIANT INFERIOR INFARCT (CITED ON OR BEFORE 21-AUG-2016) ABNORMAL ECG WHEN COMPARED WITH ECG OF 25-MAR-2019 14:51, PREMATURE VENTRICULAR COMPLEXES ARE NOW PRESENT Confirmed by JARED SMILEY MD [id number]) on 04/22/2019 12:59:11 AM Referred By: Confirmed By:JARED SMILEY MD
[2019-04-22] MEDS ORDERED: ASPIRIN 81 MG CHEWABLE TABLETS PO SCH (10:00)
== END 2019-04-21 17:53 | disposition left against medical advice (07) | DRG 683 ==
LOC: JER 21:37 → JERBED 04-21 04:11
PROVIDERS: ADMIT Internal Medicine
DX: N17.9 Acute kidney failure, unspecified (principal); M62.82 Rhabdomyolysis; I13.0 Hypertensive heart and chronic kidney disease with heart failure and stage 1 through stage 4 chronic kidney disease, or unspecified chronic kidney disease; I50.30 Unspecified diastolic (congestive) heart failure; M25.551 Pain in right hip; E78.5 Hyperlipidemia, unspecified; I25.10 Atherosclerotic heart disease of native coronary artery without angina pectoris; Z98.61 Coronary angioplasty status; N18.9 Chronic kidney disease, unspecified; F20.9 Schizophrenia, unspecified; D72.829 Elevated white blood cell count, unspecified; J44.9 Chronic obstructive pulmonary disease, unspecified; E86.0 Dehydration; E83.42 Hypomagnesemia; E83.39 Other disorders of phosphorus metabolism
CPT/HCPCS: 36415; 70450-TC; 71045-TC-FY; 72125-TC; 72128-TC; 72131-TC; 72170-TC-FY; 72192-TC; 73502-TC-RT-FY; 80053; 81003; 82550; 82553; 83735; 84100; 84443; 84484; 85025; 85610; 85730; 87086; 93005; 93010; 99284-25; J7030

== ENCOUNTER 2019-04-22 15:45 | Inpatient (IN) | payer OTHER, BC ==
[2019-04-22] MEDS ORDERED: SODIUM CHLORIDE 0.9% 1000 ML INFUS.BAG IV ONE ×2 (16:31)
[2019-04-22] MEDS ORDERED: ACETAMINOPHEN 1000 MG/100 ML VIAL (NON FORMULARY) IVPB ONE (16:43)
[2019-04-22 16:56] LABS: BASO % 0.4 % (0-2.0); EOS % 1.7 % (0-4.5); HEMATOCRIT 36.1 % (35.4-49); HEMOGLOBIN 12.2 GM/dl (11.7-16.9); LYMPH % 14.7 % (8-40); MCH 33.1 pg (25.7-33.7); MCHC 33.8 g/dl (32.0-35.9); MEAN PLT VOLUME 7.8 fl (7.5-11.1); MONO % 6.5 % (3.8-10.2); NEUT % 76.7 % (42.8-82.8); PLATELET COUNT 222 K/MM3 (134-434); RBC 3.69 M/mm3 (4.00-5.60); RDW 12.7 % (11.9-15.9); WHITE BLOOD COUNT 8.9 K/mm3 (4.0-10.8)
[2019-04-22 17:03] LABS: INR 1.03 (0.82-1.09); PROTHROMBIN TIME (PATIENT) 11.5 SEC (10.2-13.0)
[2019-04-22] MEDS ORDERED: ACETAMINOPHEN INJECTION 100 ML IVPB ONE (17:04)
[2019-04-22 17:09] LABS: ALBUMIN 3.2 g/dl (3.4-5.0); BILIRUBIN,TOTAL 0.3 mg/dl (0.2-1); CALCIUM 8.5 mg/dl (8.5-10); CREATININE 1.9 mg/dl (0.55-1.3); MAGNESIUM 1.7 mg/dL (1.8-2.4); TOT PROT 5.2 g/dl (6.4-8.2)
[2019-04-22] MEDS ORDERED: MAGNESIUM SULF 50% (8.12 MEQ/2 ML-1 GM VIAL) IVPB ONE ×2 (18:28→21:59)
--- NOTE | 2019-04-22 18:29 | PDOC ---
Documentation entered by Emanuel Simpson SCRIBE, acting as scribe for Joanie Thakur DO. Joanie Thakur, : This documentation has been prepared by the Calvin cameron Daniel, SCRIBE, under my direction and personally reviewed by me in its entirety. I confirm that the documentation accurately reflects all work, treatment, procedures, and medical decision making performed by me. History of Present Illness - General Chief Complaint: Weakness Stated Complaint: WEAKNESS, FALL History Source: Patient, Family Exam Limitations: No Limitations - History of Present Illness Initial Comments: 04/22/19 16:49 The patient is a year old with a past medical history of HTN, HLD, CAD, AR s/p stents (2005,2016), COPD, diastolic CHF, AAA repair with stent, chronic hyponatremia, paranoid schizophrenia, tardive dyskinesia, anxiety, and depression here today for evaluation of hypotension and tachycardia. The patient reports that he fell on monday (03/21/19) which prompted him to go to [place] [facility] where he was admitted for SUDARSHAN and rhabdo but signed out AMA due to not receiving his medications. Patient also reports falling today without head strike or loss of consciousness and notes some back pain. Patient saw his PCP who advised him to come to the ER due to being hypotensive and tachycardic while in the office. Patient denies headache, lightheadedness. Denies fever, chills. Denies chest pain, shortness of breath. Denies nausea, vomiting, diarrhea, abdominal pain. Allergies: NKA PCP: Chandu Hogan Past History - Past Medical History Allergies/Adverse Reactions: Allergies Allergy/AdvReac Type Severity Reaction Status Date / Time No Known Allergies Allergy Verified 04/22/19 15:49 Home Medications: Ambulatory Orders Escitalopram Oxalate [Lexapro -] 30 mg PO DAILY 04/29/14 Alprazolam [Xanax] 1 mg PO TID 11/19/14 Bupropion HCl [Wellbutrin Xl -] 300 mg PO DAILY 06/14/15 Lisinopril 10 mg PO DAILY 10/28/16 Clopidogrel Bisulfate [Plavix -] 75 mg PO DAILY 04/23/17 Budesonide/Formeterol Fumarate [SYMBICORT 160/4.5mcg -] 2 puff IH BID #1 inhaler 04/27/17 Tiotropium [place] [Spiriva] 2 inh IH DAILY #30 cap.w.dev 01/22/18 Aspirin [ASA -] 81 mg PO DAILY 01/28/19 Fenofibrate 50 mg PO DAILY 01/28/19 Risperidone 0.5 mg PO BID 01/28/19 Anemia: No Asthma: No Cancer: No Cardiac Disorders: Yes (cardiac [id number], history of AR 2005) CVA: No COPD: Yes CHF: No DVT: No Dementia: (FORGETFUL) Diabetes: No GI Disorders: Yes (HEARTBURN) Disorders: No HTN: Yes Hypercholesterolemia: Yes Liver Disease: No Psychiatric Problems: Yes Seizures: No Thyroid Disease: No - Surgical History Abdominal Surgery: Yes (AAA 02/03/2017) Appendectomy: No Cardiac Surgery: Yes (cardiac stent 2005 & 04/2017) Cholecystectomy: No Lung Surgery: No Neurologic Surgery: No Orthopedic Surgery: No - Psycho Social/Smoking Cessation Hx Smoking Status: No Smoking History: Unknown if ever smoked Have you smoked in the past 12 months: No Number of Cigarettes Smoked Daily: 0 If you are a former smoker, when did you quit?: 2005 Hx Alcohol Use: No Drug/Substance Use Hx: No Substance Use Type: Alcohol Hx Substance Use Treatment: No Review of Systems - Review of Systems Able to Perform ROS?: Yes Comments:: 04/22/19 16:49 GENERAL/CONSTITUTIONAL: No fever or chills. No weakness. HEAD, EYES, EARS, NOSE AND THROAT: No change in vision. No ear pain or discharge. No sore throat. GASTROINTESTINAL: No nausea, vomiting, diarrhea or constipation. GENITOURINARY: No dysuria, frequency, or change in urination. CARDIOVASCULAR: No chest pain or shortness of breath. RESPIRATORY: No cough, wheezing, or hemoptysis. MUSCULOSKELETAL: +back pain. No joint or muscle swelling or pain. No neck pain. SKIN: No rash NEUROLOGIC: No headache, vertigo, loss of consciousness, or change in strength/ sensation. ENDOCRINE: No increased thirst. No abnormal weight change. HEMATOLOGIC/LYMPHATIC: No anemia, easy bleeding, or history of blood clots. ALLERGIC/IMMUNOLOGIC: No hives or skin allergy. *Physical Exam - Vital Signs Last Vital Signs Temp Pulse Resp BP Pulse Ox 98.1 F 85 16 93/68 99 04/22/19 15:45 04/22/19 17:41 04/22/19 17:41 04/22/19 17:41 04/22/19 17:41 - Physical Exam 04/22/19 16:50 Constitutional: Awake, alert, oriented. No acute distress. Head: Normocephalic. Atraumatic Eyes: PERRL. EOMI. Conjunctivae are not pale. ENT: Mucous membranes are moist and intact. Posterior pharynx without exudates or erythema. Uvula midline. Neck: Supple. Full ROM. No lymphadenopathy. Cardiovascular: +tachycardia. Regular rhythm. S1, S2 regular. Distal pulses are 2+ and symmetric. Pulmonary/Chest: +diminshed lung sounds diffusely. No evidence of respiratory distress. Clear to auscultation bilaterally No wheezing, rales or rhonchi. Abdominal: Soft and non-distended. There is no tenderness. No rebound, guarding or rigidity. No organomegaly. No palpable masses. Good bowel sounds. Back: +8x6 inch ecchymosis around right posterior ribs with tenderness. No CVA tenderness. Musculoskeletal: No edema. No cyanosis. No clubbing. Full range of motion in all extremities. Nocalf tenderness. Radial/pedal pulses are intact and 2+ bilaterally Skin: Skin is warm and dry. No petechiae. No purpura. Neurological: Alert and oriented to person, place, and time. Cranial nerves II -XII are grossly intact. Normal speech. Strength is grossly symmetric. No sensory deficits. Psychiatric: Good eye contact. Normal interaction, affect and behavior. Heart Score/ECG Review - ECG Intrepretation Comment:: 04/22/19 18:24 sinus at 84, 1st degree av block, Lvh, q waves inferior leads which are age indeterminate, no acute st changes, t wave flattening diffusely ED Treatment Course - LABORATORY CBC & Chemistry Diagram: 04/22/19 16:30 04/22/19 16:30 - ADDITIONAL ORDERS Additional order review: Laboratory Results 04/22/19 04/22/19 04/22/19 17:00 16:30 16:30 PT with INR 11.5 INR 1.03 PTT (Actin FS) Sodium 133 L Potassium 4.0 Chloride 101 Carbon Dioxide 23 Anion Gap 9 BUN 34.0 H Creatinine 1.9 H Est GFR (CKD-EPI)AfAm 39.10 Est GFR (CKD-EPI)NonAf 33.73 Random Glucose 138 H Calcium 8.5 Magnesium 1.7 L Total Bilirubin 0.3 AST 45 H ALT 21 Alkaline Phosphatase 45 Creatine Kinase 1905 H Creatine Kinase Index 0.0 CK-MB (CK-2) 1.0 Troponin I Total Protein 5.2 L Albumin 3.2 L Urine Color Yellow Urine Appearance Clear Urine pH 5.0 Urine Protein Negative Urine Glucose (UA) Negative Urine Ketones Negative Urine Blood Negative Urine Nitrite Negative Urine Bilirubin Negative Urine Urobilinogen 0.2 Ur Leukocyte Esterase Negative 04/22/19 04/22/19 16:30 16:30 PT with INR INR PTT (Actin FS) 28.1 Sodium Potassium Chloride Carbon Dioxide Anion Gap BUN Creatinine Est GFR (CKD-EPI)AfAm Est GFR (CKD-EPI)NonAf Random Glucose Calcium Magnesium Total Bilirubin AST ALT Alkaline Phosphatase Creatine Kinase Creatine Kinase Index CK-MB (CK-2) Troponin I < 0.03 Total Protein Albumin Urine Color Urine Appearance Urine pH Urine Protein Urine Glucose (UA) Urine Ketones Urine Blood Urine Nitrite Urine Bilirubin Urine Urobilinogen Ur Leukocyte Esterase 04/22/19 16:30 RBC 3.69 L MCV 98.0 H MCHC 33.8 RDW 12.7 MPV 7.8 Neutrophils % 76.7 Lymphocytes % 14.7 Monocytes % 6.5 Eosinophils % 1.7 D Basophils % 0.4 D - RADIOLOGY Radiology Studies Ordered: Category Date Time Status ABDOMEN & PELVIS CT W/O CONTR [CT] Stat CT Scan 04/22/19 16:[address] W/O CONTR [CT] Stat CT Scan 04/22/19 16:[address] WITHOUT CONTRAST [CT] Stat CT Scan 04/22/19 16:[address] WITHOUT CONTRAST [CT] Stat CT Scan 04/22/19 16:44 Ordered CHEST X-RAY PORTABLE* [RAD] Stat Radiology 04/22/19 16:30 Taken - Medications Given in the ED: ED Medications Discontinued Medications Generic Name Dose Route Start Last Admin Trade Name Freq PRN Reason Stop Dose Admin Acetaminophen 1,000 mg 04/22/19 16:43 04/22/19 17:10 Ofirmev Injection - IVPB 04/22/19 16:44 1,000 mg ONCE ONE Administration Sodium Chloride 1,000 ml 04/22/19 16:31 04/22/19 16:50 Normal Saline - IV 04/22/19 16:32 1,000 ml ONCE ONE Administration Sodium Chloride 1,000 ml 04/22/19 16:31 04/22/19 17:40 Normal Saline - IV 04/22/19 16:32 1,000 ml ONCE ONE Administration Medical Decision Making - Critical Care Time Total Critical Care Time (minutes): 60 Critical Care Statement: The care of this patient involved high complexity decision making to prevent further life threatening deterioration of the patient 's condition and/or to evaluate & treat vital organ system(s) failure or risk of failure. - Medical Decision Making 04/22/19 18:24 I, Dr. Joanie Thakur, DO, attest that this document has been prepared under my direction and personally reviewed by me in its entirety. I further attest, that it accurately reflects all work, treatment, procedures and medical decision -making performed by me. a/p: 74yo male with recent falls - admitted over the weekend with rhabdo and sudarshan went to his PMd after another fall today landing on his back -pt arrives hypotensive, tachy, dehydrated -dry cracked tongue and dry mm -pt did not drink fluids, but did eat a bagel and ate dinner last night -left [facility] AMA yesterday because he did not receive his psychotropic meds -pt with new ecchymosis to his back -will send labs, ck, renal function -will place gutiérrez catheter for strict I/O -will send for ct imaging given multiple falls, new ecchymosis, sudarshan, hypotension -pt will need admission -no new focal neuro findings 04/22/19 18:26 CK improving from 5000 to 1900, but Cr rising pt making urine pt feeling better and BP improving with IVF hydration pending ct imaging case discussed with Aylin Hoskins from [facility] who accepts pt to service for admission for SUDARSHAN and rhabdo, freq falls family and pt updated 04/22/19 18:28 mag is low, will replace 04/22/19 18:42 cxr clear 04/22/19 19:[address] neg Discharge - Discharge Information Problems reviewed: Yes Clinical Impression/Diagnosis: Fall, SUDARSHAN (acute kidney injury), Rhabdomyolysis, Dehydration, Hypomagnesemia, Back contusion, Hypotension Condition: Guarded - Admission Yes - Follow up/Referral Referrals: Chandu Hogan MD [Primary Care Provider] - - Patient Discharge Instructions - Post Discharge Activity
[2019-04-22] MEDS ORDERED: MAGNESIUM 1GM/D5W - 1 GM/100 ML IVPB IVPB ONE (18:43)
[2019-04-22 19:36] LABS: VENOUS PC02 39.7 mmHg (38-52); VENOUS PH 7.38 (7.31-7.41); VENOUS PO2 61.9 mmHg (28-48)
--- NOTE | 2019-04-22 21:06 | HP ---
CHIEF COMPLAINT: Falls PCP: Dr. Hogan HISTORY OF PRESENT ILLNESS: 73 year-old male with a PMH significant for HTN, HLD, CAD s/p NE s/p stents, COPD, diastolic HF, AAA repair with stent, chronic hyponatremia, paranoid schizophrenia, tardive dyskinesia, dementia, and anxiety/depression. On 04/20 presented to [facility] ED for an unwitnessed fall at home. Patient said he lost his balance and fell down, denied head trauma, but complained of right hip and neck pain. Patient reported he was on the floor for 3 hours before he was able to crawl to the phone and call EMS. On arrival to ED, BUN 24.8,Cr 1.7, CPK 5695, Phos 2.2. Patient was started on IV fluids, but signed out AMA on evening of 04/21. Patient presents today to the [place] ED stating that he fell for a second time today, denied head trauma, but complained of back pain. Patient first went to his PCP's office and his PCP advised him to come to the ED due to hypotension and tachycardia. 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, has support of 2 sisters and brother Smoking: quit 2005 Alcohol: no Drugs: no Family History: mother with CAD and HTN; father liver cancer Allergies No Known Allergies Allergy (Verified 04/22/19 15:49) Verified HOME MEDICATIONS: Home Medications Medication Instructions Recorded Escitalopram Oxalate [Lexapro -] 30 mg PO DAILY 04/29/14 Alprazolam [Xanax] 1 mg PO TID 11/19/14 Bupropion HCl [Wellbutrin Xl -] 300 mg PO DAILY 06/14/15 Lisinopril 10 mg PO DAILY 10/28/16 Clopidogrel Bisulfate [Plavix -] 75 mg PO DAILY 04/23/17 Budesonide/Formeterol Fumarate 2 puff IH BID #1 inhaler 04/27/17 [SYMBICORT 160/4.5mcg -] Tiotropium [place] [Spiriva] 2 inh IH DAILY #30 cap.w.dev 01/22/18 Aspirin [ASA -] 81 mg PO DAILY 01/28/19 Fenofibrate 50 mg PO DAILY 01/28/19 Risperidone 0.5 mg PO BID 01/28/19 REVIEW OF SYSTEMS CONSTITUTIONAL: Absent: fever, chills, diaphoresis, generalized weakness, malaise, loss of appetite, weight change HEENT: Absent: rhinorrhea, nasal congestion, throat pain, throat swelling, difficulty swallowing, mouth swelling, ear pain, eye pain, visual changes CARDIOVASCULAR: Absent: chest pain, syncope, palpitations, irregular heart rate, lightheadedness , peripheral edema RESPIRATORY: Absent: cough, shortness of breath, dyspnea with exertion, orthopnea, wheezing, stridor, hemoptysis GASTROINTESTINAL: Absent: abdominal pain, abdominal distension, nausea, vomiting, diarrhea, constipation, melena, hematochezia GENITOURINARY: Absent: dysuria, frequency, urgency, hesitancy, hematuria, flank pain, genital pain MUSCULOSKELETAL: +two falls, back pain from fall Absent: myalgia, arthralgia, joint swelling, neck pain SKIN: Absent: rash, itching, pallor HEMATOLOGIC/IMMUNOLOGIC: Absent: easy bleeding, easy bruising, lymphadenopathy, frequent infections ENDOCRINE: Absent: unexplained weight gain, unexplained weight loss, heat intolerance, cold intolerance NEUROLOGIC: Absent: headache, focal weakness or paresthesias, dizziness, unsteady gait, seizure, mental status changes, bladder or bowel incontinence PSYCHIATRIC: Absent: anxiety, depression, suicidal or homicidal ideation, hallucinations. PHYSICAL EXAMINATION Vital Signs - 24 hr 04/22/19 04/22/19 04/22/19 15:45 17:41 20:37 Temperature 98.1 F 97.9 F Pulse Rate 100 H Pulse Rate [ 85 86 Left Apical] Respiratory 18 16 16 Rate Blood Pressure 82/57 L Blood Pressure 93/68 100/51 L [Right Arm] O2 Sat by Pulse 97 99 96 Oximetry (%) GENERAL: Awake, alert, and fully oriented, in no acute distress. HEAD: Normal with no signs of trauma. LUNGS: CTA HEART: Regular rate and rhythm, normal S1 and S2 ABDOMEN: Soft, nontender, not distended UPPER EXTREMITIES: 2+ pulses, warm, well-perfused. No cyanosis. No clubbing. No peripheral edema. LOWER EXTREMITIES: 2+ pulses, warm, well-perfused. No calf tenderness. No peripheral edema. NEUROLOGICAL: Cranial nerves II-XII intact. Normal speech. SKIN: Warm, dry, normal turgor Laboratory Results - last 24 hr 04/22/19 04/22/19 04/22/19 16:30 16:30 16:30 WBC RBC Hgb Hct MCV MCH MCHC RDW Plt Count MPV Absolute Neuts (auto) Neutrophils % Lymphocytes % Monocytes % Eosinophils % Basophils % PT with INR INR PTT (Actin FS) 28.1 VBG pH POC VBG pCO2 POC VBG pO2 VBG HCO3 VBG O2 Sat (Tio) VBG Base Excess Sodium 133 L Potassium 4.0 Chloride 101 Carbon Dioxide 23 Anion Gap 9 BUN 34.0 H Creatinine 1.9 H Est GFR (CKD-EPI)AfAm 39.10 Est GFR (CKD-EPI)NonAf 33.73 Random Glucose 138 H Lactic Acid Calcium 8.5 Magnesium 1.7 L Total Bilirubin 0.3 AST 45 H ALT 21 Alkaline Phosphatase 45 Creatine Kinase 1905 H Creatine Kinase Index 0.0 CK-MB (CK-2) 1.0 Troponin I < 0.03 Total Protein 5.2 L Albumin 3.2 L Urine Color Urine Appearance Urine pH Urine Protein Urine Glucose (UA) Urine Ketones Urine Blood Urine Nitrite Urine Bilirubin Urine Urobilinogen Ur Leukocyte Esterase Blood Type Antibody Screen 04/22/19 04/22/19 04/22/19 16:30 16:30 16:30 WBC 8.9 RBC 3.69 L Hgb 12.2 Hct 36.1 MCV 98.0 H MCH 33.1 MCHC 33.8 RDW 12.7 Plt Count 222 D MPV 7.8 Absolute Neuts (auto) 6.8 Neutrophils % 76.7 Lymphocytes % 14.7 Monocytes % 6.5 Eosinophils % 1.7 D Basophils % 0.4 D PT with INR 11.5 INR 1.03 PTT (Actin FS) VBG pH POC VBG pCO2 POC VBG pO2 VBG HCO3 VBG O2 Sat (Tio) VBG Base Excess Sodium Potassium Chloride Carbon Dioxide Anion Gap BUN Creatinine Est GFR (CKD-EPI)AfAm Est GFR (CKD-EPI)NonAf Random Glucose Lactic Acid Calcium Magnesium Total Bilirubin AST ALT Alkaline Phosphatase Creatine Kinase Creatine Kinase Index CK-MB (CK-2) Troponin I Total Protein Albumin Urine Color Urine Appearance Urine pH Urine Protein Urine Glucose (UA) Urine Ketones Urine Blood Urine Nitrite Urine Bilirubin Urine Urobilinogen Ur Leukocyte Esterase Blood Type O POSITIVE Antibody Screen Negative 04/22/19 04/22/19 04/22/19 16:31 16:40 17:00 WBC RBC Hgb Hct MCV MCH MCHC RDW Plt Count MPV Absolute Neuts (auto) Neutrophils % Lymphocytes % Monocytes % Eosinophils % Basophils % PT with INR INR PTT (Actin FS) VBG pH 7.38 POC VBG pCO2 39.7 POC VBG pO2 61.9 H VBG HCO3 22.7 L VBG O2 Sat (Tio) 89.8 H VBG Base Excess -1.7 Sodium Potassium Chloride Carbon Dioxide Anion Gap BUN Creatinine Est GFR (CKD-EPI)AfAm Est GFR (CKD-EPI)NonAf Random Glucose Lactic Acid 1.6 Calcium Magnesium Total Bilirubin AST ALT Alkaline Phosphatase Creatine Kinase Creatine Kinase Index CK-MB (CK-2) Troponin I Total Protein Albumin Urine Color Yellow Urine Appearance Clear Urine pH 5.0 Urine Protein Negative Urine Glucose (UA) Negative Urine Ketones Negative Urine Blood Negative Urine Nitrite Negative Urine Bilirubin Negative Urine Urobilinogen 0.2 Ur Leukocyte Esterase Negative Blood Type Antibody Screen ASSESSMENT/PLAN: 73 year-old male with a PMH significant for HTN, HLD, CAD s/p NE s/p stents, COPD, diastolic HF, AAA repair with stent, chronic hyponatremia, paranoid schizophrenia, tardive dyskinesia, dementia, and anxiety/depression. Admitted for SUDARSHAN and rhabdomyolysis. Acute kidney injury --Cr 1.9, baseline 1.2 Rhabdomyolysis --CPK has improved 1905 (<--5695 on 04/20) --NS@150mL/hr --monitor respiratory status carefully in this patient with diastolic HF; give lasix if necessary but continue fluids; strict I&Os; daily weights --vital signs q4h, spot check pulse ox q4h --continuous pulse ox --cxr in am --renal consult Dr. Che Hypertension, now hypotensive --likely from dehydration --continue IV fluids --hold lisinopril COPD, chronic --CXR: unremarkable --satting 99% on room air Hyperlipidemia --continue fenofibrate Coronary artery disease s/p stents --continue ASA, Plavix Diastolic heart failure --not on diuretics at home Paranoid schizophrenia Tardive dyskinesia Dementia Anxiety/depression --continue Wellbutrin, Lexapro, Risperidone Hypomagnesemia --replete FEN Fluids: NS@150mL/hr Electrolytes: replete as indicated Nutrition: regular DVT prophylaxis: subq heparin Physical therapy Dispo: continues to require inpatient care. Full code. Visit type - Emergency Visit Emergency Visit: Yes ED Registration Date: 04/22/19 Care time: The patient presented to the Emergency Department on the above date and was hospitalized for further evaluation of their emergent condition. - New Patient This patient is new to me today: Yes Date on this admission: 04/23/19 - Critical Care Critical Care patient: No
[2019-04-22] MEDS ORDERED: SODIUM CHLORIDE 1,000 ML IV SCH (22:00)
[2019-04-22] MEDS: risperiDONE 0.5 MG TABLET (FP) PO SCH (22:46)
[2019-04-22] MEDS: HEPARIN NA (PORCINE) 5,000 UNITS/ML 1ML VIAL SQ SCH (22:46)
[2019-04-22] MEDS: ALPRAZolam 1 MG TABLET PO SCH (22:51)
[2019-04-23] MEDS: BUDESONIDE/FORMETEROL FUMARATE 160/4.5 mcg INHALER IH SCH ×3 (01:40→21:28)
[2019-04-23 06:03] VITALS: BMI 28.7
[2019-04-23] MEDS: HEPARIN NA (PORCINE) 5,000 UNITS/ML 1ML VIAL SQ SCH ×3 (06:49→21:26)
[2019-04-23] MEDS: ALPRAZolam 1 MG TABLET PO SCH ×3 (06:49→21:24)
--- NOTE | 2019-04-23 06:57 | PN ---
Physical Exam: SUBJECTIVE: Patient seen and examined OBJECTIVE: Vital Signs Period Temp Pulse Resp BP Sys/Gonzales Pulse Ox Last 24 Hr 97.6 F-98.1 F 55-100 16-20 82-110/45-68 94-99 GENERAL: Awake, alert, and fully oriented, in no acute distress. HEAD: Normal with no signs of trauma. LUNGS: CTA HEART: Regular rate and rhythm, normal S1 and S2 ABDOMEN: Soft, nontender, not distended UPPER EXTREMITIES: 2+ pulses, warm, well-perfused. No cyanosis. No clubbing. No peripheral edema. LOWER EXTREMITIES: 2+ pulses, warm, well-perfused. No calf tenderness. No peripheral edema. NEUROLOGICAL: Cranial nerves II-XII intact. Normal speech. SKIN: Warm, dry, normal turgor Laboratory Results - last 24 hr 04/22/19 04/22/19 04/22/19 16:30 16:30 16:30 WBC RBC Hgb Hct MCV MCH MCHC RDW Plt Count MPV Absolute Neuts (auto) Neutrophils % Lymphocytes % Monocytes % Eosinophils % Basophils % PT with INR INR PTT (Actin FS) 28.1 VBG pH POC VBG pCO2 POC VBG pO2 VBG HCO3 VBG O2 Sat (Tio) VBG Base Excess Sodium 133 L Potassium 4.0 Chloride 101 Carbon Dioxide 23 Anion Gap 9 BUN 34.0 H Creatinine 1.9 H Est GFR (CKD-EPI)AfAm 39.10 Est GFR (CKD-EPI)NonAf 33.73 Random Glucose 138 H Lactic Acid Calcium 8.5 Magnesium 1.7 L Total Bilirubin 0.3 AST 45 H ALT 21 Alkaline Phosphatase 45 Creatine Kinase 1905 H Creatine Kinase Index 0.0 CK-MB (CK-2) 1.0 Troponin I < 0.03 Total Protein 5.2 L Albumin 3.2 L Urine Color Urine Appearance Urine pH Urine Protein Urine Glucose (UA) Urine Ketones Urine Blood Urine Nitrite Urine Bilirubin Urine Urobilinogen Ur Leukocyte Esterase Blood Type Antibody Screen 04/22/19 04/22/19 04/22/19 16:30 16:30 16:30 WBC 8.9 RBC 3.69 L Hgb 12.2 Hct 36.1 MCV 98.0 H MCH 33.1 MCHC 33.8 RDW 12.7 Plt Count 222 D MPV 7.8 Absolute Neuts (auto) 6.8 Neutrophils % 76.7 Lymphocytes % 14.7 Monocytes % 6.5 Eosinophils % 1.7 D Basophils % 0.4 D PT with INR 11.5 INR 1.03 PTT (Actin FS) VBG pH POC VBG pCO2 POC VBG pO2 VBG HCO3 VBG O2 Sat (Tio) VBG Base Excess Sodium Potassium Chloride Carbon Dioxide Anion Gap BUN Creatinine Est GFR (CKD-EPI)AfAm Est GFR (CKD-EPI)NonAf Random Glucose Lactic Acid Calcium Magnesium Total Bilirubin AST ALT Alkaline Phosphatase Creatine Kinase Creatine Kinase Index CK-MB (CK-2) Troponin I Total Protein Albumin Urine Color Urine Appearance Urine pH Urine Protein Urine Glucose (UA) Urine Ketones Urine Blood Urine Nitrite Urine Bilirubin Urine Urobilinogen Ur Leukocyte Esterase Blood Type O POSITIVE Antibody Screen Negative 04/22/19 04/22/19 04/22/19 16:31 16:40 17:00 WBC RBC Hgb Hct MCV MCH MCHC RDW Plt Count MPV Absolute Neuts (auto) Neutrophils % Lymphocytes % Monocytes % Eosinophils % Basophils % PT with INR INR PTT (Actin FS) VBG pH 7.38 POC VBG pCO2 39.7 POC VBG pO2 61.9 H VBG HCO3 22.7 L VBG O2 Sat (Tio) 89.8 H VBG Base Excess -1.7 Sodium Potassium Chloride Carbon Dioxide Anion Gap BUN Creatinine Est GFR (CKD-EPI)AfAm Est GFR (CKD-EPI)NonAf Random Glucose Lactic Acid 1.6 Calcium Magnesium Total Bilirubin AST ALT Alkaline Phosphatase Creatine Kinase Creatine Kinase Index CK-MB (CK-2) Troponin I Total Protein Albumin Urine Color Yellow Urine Appearance Clear Urine pH 5.0 Urine Protein Negative Urine Glucose (UA) Negative Urine Ketones Negative Urine Blood Negative Urine Nitrite Negative Urine Bilirubin Negative Urine Urobilinogen 0.2 Ur Leukocyte Esterase Negative Blood Type Antibody Screen Active Medications Generic Name Dose Route Start Last Admin Trade Name Freq PRN Reason Stop Dose Admin Alprazolam 1 mg 04/22/19 22:00 04/23/19 06:49 Xanax PO 1 mg TID FIDEL Administration Aspirin 81 mg 04/23/19 10:00 Asa - PO DAILY FIDEL Budesonide/Formoterol Fumarate 2 puff 04/22/19 22:00 04/23/19 01:40 Symbicort 160/4.5mcg - IH 2 puff BID FIDEL Administration Bupropion HCl 300 mg 04/23/19 10:00 Wellbutrin Xl - PO DAILY [facility] Clopidogrel Bisulfate 75 mg 04/23/19 10:00 Plavix - PO DAILY FIDEL Escitalopram Oxalate 30 mg 04/23/19 10:00 Lexapro - PO DAILY FIDEL Fenofibric Acid 45 mg 04/23/19 10:00 Trilipix - PO DAILY FIDEL Heparin Sodium (Porcine) 5,000 unit 04/22/19 22:00 04/23/19 06:49 Heparin - SQ 5,000 unit TID FIDEL Administration Sodium Chloride 1,000 mls @ 150 mls/hr 04/22/19 22:00 04/22/19 22:46 Normal Saline - IV 150 mls/hr ASDIR FIDEL Administration Risperidone 0.5 mg 04/22/19 22:00 04/22/19 22:46 Risperdal - PO 0.5 mg BID FIDEL Administration Tiotropium [place] 2 puff 04/23/19 10:00 Spiriva Respimat IH DAILY FIDEL ASSESSMENT/PLAN: 73 year-old male with a PMH significant for HTN, HLD, CAD s/p MD s/p stents, COPD, diastolic HF, AAA repair with stent, chronic hyponatremia, paranoid schizophrenia, tardive dyskinesia, dementia, and anxiety/depression. Admitted for SUDARSHAN and rhabdomyolysis. Acute kidney injury --Cr 1.9 on admission, 1.8 today, baseline 1.2 Rhabdomyolysis --CPK continues to trend down, now <1000 (<--5695 on 04/20) --stop IV fluids --renal following Hypertension, now hypotensive --likely from dehydration --continue IV fluids --hold lisinopril COPD, chronic Hyperlipidemia --continue fenofibrate Coronary artery disease s/p stents --continue ASA, Plavix Diastolic heart failure --not on diuretics at home --CXR today no signs of volume overload Paranoid schizophrenia Tardive dyskinesia Dementia Anxiety/depression --continue Wellbutrin, Lexapro, Risperidone FEN Fluids: encourage PO intake Electrolytes: replete as indicated Nutrition: regular DVT prophylaxis: subq heparin Physical therapy Dispo: continues to require inpatient care. Full code. Visit type - Emergency Visit Emergency Visit: Yes ED Registration Date: 04/22/19 Care time: The patient presented to the Emergency Department on the above date and was hospitalized for further evaluation of their emergent condition. - New Patient This patient is new to me today: No - Critical Care Critical Care patient: No
[2019-04-23] MEDS ORDERED: SODIUM CHLORIDE 1,000 ML IV SCH (07:02)
[2019-04-23 08:09] LABS: BASO % 0.2 % (0-2.0); EOS % 1.9 % (0-4.5); HEMATOCRIT 33.2 % (35.4-49); HEMOGLOBIN 11.1 GM/dl (11.7-16.9); MCH 32.6 pg (25.7-33.7); MCHC 33.5 g/dl (32.0-35.9); MEAN CELL VOLUME 97.2 fl (80-96); MEAN PLT VOLUME 7.8 fl (7.5-11.1); MONO % 8.5 % (3.8-10.2); NEUT % 72.4 % (42.8-82.8); PLATELET COUNT 214 K/MM3 (134-434); RBC 3.41 M/mm3 (4.00-5.60); RDW 12.6 % (11.9-15.9)
--- NOTE | 2019-04-23 09:07 | EKG ---
Test Reason : Blood Pressure : / mmHG Vent. Rate : 084 BPM Atrial Rate : 084 BPM P-R Int : 204 ms QRS Dur : 094 ms QT Int : 384 ms P-R-T Axes : 015 -28 046 degrees QTc Int : 453 ms NORMAL SINUS RHYTHM MINIMAL VOLTAGE CRITERIA FOR LVH, MAY BE NORMAL VARIANT INFERIOR INFARCT (CITED ON OR BEFORE 21-AUG-2016) ABNORMAL ECG WHEN COMPARED WITH ECG OF 21-APR-2019 00:46, PREMATURE VENTRICULAR COMPLEXES ARE NO LONGER PRESENT Confirmed by Charles Arellano MD ([id number]) on 04/23/2019 9:07:32 AM Referred By: Confirmed By:Charles Arellano MD
[2019-04-23 09:12] LABS: ALBUMIN 2.9 g/dl (3.4-5.0); BILIRUBIN,TOTAL 0.4 mg/dl (0.2-1); CALCIUM 8.2 mg/dl (8.5-10); CREATININE 1.8 mg/dl (0.55-1.3); MAGNESIUM 2.1 mg/dL (1.8-2.4); PHOSPHOROUS 3.6 mg/dl (2.5-4.9); POTASSIUM 4.6 mmol/L (3.5-5.1); TOT PROT 4.9 g/dl (6.4-8.2)
[2019-04-23] MEDS ORDERED: PT OWN MED DRAWER 7, Y5N ONE (10:51)
[2019-04-23] MEDS: CLOPIDOGREL BISULFATE 75 MG TABLET (FP) PO SCH (10:53)
[2019-04-23] MEDS: risperiDONE 0.5 MG TABLET (FP) PO SCH ×2 (10:53→21:25)
[2019-04-23] MEDS: FENOFIBRIC ACID 45 MG CAP PO SCH (10:53)
[2019-04-23] MEDS: ASPIRIN 81 MG CHEWABLE TABLETS PO SCH (10:54)
[2019-04-23] MEDS: ESCITALOPRAM OXALATE 20 MG TABLET (FP) PO SCH (10:54)
[2019-04-23] MEDS: TIOTROPIUM BROMIDE 2.5 MCG (SPIRIVA) RESPIMAT INHALER IH SCH (10:54)
--- NOTE | 2019-04-23 15:12 | CONSULT ---
Consult Consult Specialty:: Nephrology Reason for Consultation:: rhabdo and sudarshan - History of Present Illness Chief Complaint: presented initally after a fall History of Present Illness: Pt seen and examined at bedside. Pt signed out ama from [facility] and came to [place]. He was found in SUDARSHAN and rhabo. He denies shortness of breath. 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 (forgetfulness) Cardio/Vascular: Yes: CAD, HTN, Hyperlipdemia, SC Pulmonary: Yes: COPD Gastrointestinal: Yes: Other (umbilical hernia) Psych: Yes: Anxiety, Depression - Past Surgical History Past Surgical History: Yes: Stent - Alcohol/Substance Use Hx Alcohol Use: No History of Substance Use: reports: None - Smoking History Smoking history: Unknown if ever smoked Have you smoked in the past 12 months: No Aproximately how many cigarettes per day: 0 If you are a former smoker, when did you quit?: 2005 - Social History ADL: Independent Occupation: Retired [employer] T[employer] History of Recent Travel: No Home Medications - Allergies Allergies/Adverse Reactions: Allergies Allergy/AdvReac Type Severity Reaction Status Date / Time No Known Allergies Allergy Verified 04/22/19 15:49 - Home Medications Home Medications: Ambulatory Orders Escitalopram Oxalate [Lexapro -] 30 mg PO DAILY 04/29/14 Alprazolam [Xanax] 1 mg PO TID 11/19/14 Bupropion HCl [Wellbutrin Xl -] 300 mg PO DAILY 06/14/15 Lisinopril 10 mg PO DAILY 10/28/16 Clopidogrel Bisulfate [Plavix -] 75 mg PO DAILY 04/23/17 Budesonide/Formeterol Fumarate [SYMBICORT 160/4.5mcg -] 2 puff IH BID #1 inhaler 04/27/17 Tiotropium [place] [Spiriva] 2 inh IH DAILY #30 cap.w.dev 01/22/18 Aspirin [ASA -] 81 mg PO DAILY 01/28/19 Fenofibrate 50 mg PO DAILY 01/28/19 Risperidone 0.5 mg PO BID 01/28/19 Family Medical History Family History: Denies Review of Systems - Review of Systems Constitutional: reports: Malaise Eyes: reports: No Symptoms HENT: reports: No Symptoms Neck: reports: No Symptoms Cardiovascular: reports: No Symptoms Respiratory: reports: No Symptoms Musculoskeletal: reports: No Symptoms Integumentary: reports: No Symptoms Physical Exam Vital Signs: Vital Signs Temperature 97.9 F 04/23/19 10:00 Pulse Rate 67 04/23/19 10:00 Respiratory Rate 20 04/23/19 10:00 Blood Pressure 121/69 04/23/19 10:00 O2 Sat by Pulse Oximetry (%) 99 04/23/19 10:00 Constitutional: Yes: Calm Eyes: Yes: Conjunctiva Clear HENT: Yes: Atraumatic Cardiovascular: Yes: S1, S2 Respiratory: Yes: CTA Bilaterally Gastrointestinal: Yes: Soft Renal/: Yes: WNL, Morales Present Musculoskeletal: Yes: WNL Edema: No Neurological: Yes: Oriented Labs: CBC, BMP 04/23/19 07:28 04/23/19 07:28 Assessment/Plan Current Medications Generic Name Dose Route Start Last Admin Trade Name Freq PRN Reason Stop Dose Admin Alprazolam 1 mg 04/22/19 22:00 04/23/19 06:49 Xanax PO 1 mg TID FIDEL Administration Aspirin 81 mg 04/23/19 10:00 04/23/19 10:54 Asa - PO 81 mg DAILY FIDEL Administration Budesonide/Formoterol Fumarate 2 puff 04/22/19 22:00 04/23/19 10:55 Symbicort 160/4.5mcg - IH 2 puff BID FIDEL Administration Bupropion HCl 300 mg 04/23/19 10:00 04/23/19 10:54 Wellbutrin Xl - PO 300 mg DAILY FIDEL Administration Clopidogrel Bisulfate 75 mg 04/23/19 10:00 04/23/19 10:53 Plavix - PO 75 mg DAILY FIDEL Administration Escitalopram Oxalate 30 mg 04/23/19 10:00 04/23/19 10:54 Lexapro - PO 30 mg DAILY FIDEL Administration Fenofibric Acid 45 mg 04/23/19 10:00 04/23/19 10:53 Trilipix - PO 45 mg DAILY FIDEL Administration Heparin Sodium (Porcine) 5,000 unit 04/22/19 22:00 04/23/19 06:49 Heparin - SQ 5,000 unit TID FIDEL Administration Risperidone 0.5 mg 04/22/19 22:00 04/23/19 10:53 Risperdal - PO 0.5 mg BID FIDEL Administration Tiotropium [place] 2 puff 04/23/19 10:00 04/23/19 10:54 Spiriva Respimat IH 2 puff DAILY FIDEL Administration Impression: s/p fall mild rhabdo CKD schizophrenia CAD hx AAA repair and stent placement Plan - cpk is improving - can observe off of fluids until am - repeat cpk in am - see full consult from last admission - avoid nsaids
[2019-04-24] MEDS: ALPRAZolam 1 MG TABLET PO SCH (06:07)
[2019-04-24] MEDS: HEPARIN NA (PORCINE) 5,000 UNITS/ML 1ML VIAL SQ SCH (06:07)
[2019-04-24 09:33] LABS: ALBUMIN 2.9 g/dl (3.4-5.0); BILIRUBIN,TOTAL 0.4 mg/dl (0.2-1); CALCIUM 8.2 mg/dl (8.5-10); CREATININE 1.5 mg/dl (0.55-1.3); POTASSIUM 4.3 mmol/L (3.5-5.1); TOT PROT 4.8 g/dl (6.4-8.2)
[2019-04-24] MEDS: ESCITALOPRAM OXALATE 20 MG TABLET (FP) PO SCH (09:39)
[2019-04-24] MEDS: CLOPIDOGREL BISULFATE 75 MG TABLET (FP) PO SCH (09:39)
[2019-04-24] MEDS: ASPIRIN 81 MG CHEWABLE TABLETS PO SCH (09:39)
[2019-04-24] MEDS: risperiDONE 0.5 MG TABLET (FP) PO SCH (09:39)
[2019-04-24] MEDS: TIOTROPIUM BROMIDE 2.5 MCG (SPIRIVA) RESPIMAT INHALER IH SCH (09:44)
[2019-04-24] MEDS: BUDESONIDE/FORMETEROL FUMARATE 160/4.5 mcg INHALER IH SCH (09:44)
[2019-04-24] MEDS: FENOFIBRIC ACID 45 MG CAP PO SCH (10:02)
--- NOTE | 2019-04-24 10:38 | PN ---
Progress Note, Physician History of Present Illness: Pt seen and examined at bedside. He is awake and alert. he denies shortness of breath. - Current Medication List Current Medications: Active Medications Alprazolam (Xanax) 1 mg PO TID [facility] Last Admin: 04/24/19 06:07 Dose: 1 mg Aspirin (Asa -) 81 mg PO DAILY [facility] Last Admin: 04/24/19 09:39 Dose: 81 mg Budesonide/Formoterol Fumarate (Symbicort 160/4.5mcg -) 2 puff IH BID [facility] Last Admin: 04/24/19 09:44 Dose: 2 puff Bupropion HCl (Wellbutrin Xl -) 300 mg PO DAILY [facility] Last Admin: 04/24/19 10:02 Dose: 300 mg Clopidogrel Bisulfate (Plavix -) 75 mg PO DAILY [facility] Last Admin: 04/24/19 09:39 Dose: 75 mg Escitalopram Oxalate (Lexapro -) 30 mg PO DAILY [facility] Last Admin: 04/24/19 09:39 Dose: 30 mg Fenofibric Acid (Trilipix -) 45 mg PO DAILY [facility] Last Admin: 04/24/19 10:02 Dose: 45 mg Heparin Sodium (Porcine) (Heparin -) 5,000 unit SQ TID [facility] Last Admin: 04/24/19 06:07 Dose: 5,000 unit Risperidone (Risperdal -) 0.5 mg PO BID [facility] Last Admin: 04/24/19 09:39 Dose: 0.5 mg Tiotropium [place] (Spiriva Respimat) 2 puff IH DAILY [facility] Last Admin: 04/24/19 09:44 Dose: 2 puff - Objective Vital Signs: Vital Signs Temperature 98.5 F 04/24/19 06:00 Pulse Rate 62 04/24/19 06:00 Respiratory Rate 18 04/24/19 06:00 Blood Pressure 132/61 04/24/19 06:00 O2 Sat by Pulse Oximetry (%) 97 04/23/19 20:47 Constitutional: Yes: Calm Eyes: Yes: Conjunctiva Clear HENT: Yes: Atraumatic Cardiovascular: Yes: S1, S2 Respiratory: Yes: CTA Bilaterally Gastrointestinal: Yes: Soft Genitourinary: Yes: Morales Present Musculoskeletal: Yes: WNL Edema: No Neurological: Yes: Oriented Psychiatric: Yes: Oriented Labs: CBC, BMP 04/23/19 07:28 04/24/19 09:16 INR, PTT INR 1.03 (0.82-1.09) 04/22/19 16:30 Assessment/Plan Current Medications Generic Name Dose Route Start Last Admin Trade Name Christin PRN Reason Stop Dose Admin Alprazolam 1 mg 04/22/19 22:00 04/24/19 06:07 Xanax PO 1 mg TID FIDEL Administration Aspirin 81 mg 04/23/19 10:00 04/24/19 09:39 Asa - PO 81 mg DAILY FIDEL Administration Budesonide/Formoterol Fumarate 2 puff 04/22/19 22:00 04/24/19 09:44 Symbicort 160/4.5mcg - IH 2 puff BID FIDEL Administration Bupropion HCl 300 mg 04/23/19 10:00 04/24/19 10:02 Wellbutrin Xl - PO 300 mg DAILY FIDEL Administration Clopidogrel Bisulfate 75 mg 04/23/19 10:00 04/24/19 09:39 Plavix - PO 75 mg DAILY FIDEL Administration Escitalopram Oxalate 30 mg 04/23/19 10:00 04/24/19 09:39 Lexapro - PO 30 mg DAILY FIDEL Administration Fenofibric Acid 45 mg 04/23/19 10:00 04/24/19 10:02 Trilipix - PO 45 mg DAILY FIDEL Administration Heparin Sodium (Porcine) 5,000 unit 04/22/19 22:00 04/24/19 06:07 Heparin - SQ 5,000 unit TID FIDEL Administration Risperidone 0.5 mg 04/22/19 22:00 04/24/19 09:39 Risperdal - PO 0.5 mg BID FIDEL Administration Tiotropium [place] 2 puff 04/23/19 10:00 04/24/19 09:44 Spiriva Respimat IH 2 puff DAILY FIDEL Administration Impression: s/p fall mild rhabdo CKD schizophrenia CAD hx AAA repair and stent placement Plan - cpk continues to improve - stable off of fluids - renal function is improved - will need outpt follow up - avoid nsaids
[2019-04-24 14:15] VITALS: BP 138/61; PULSE 78; TEMP 98.1
== END 2019-04-24 16:00 | disposition home or self-care (01) | DRG 683 ==
LOC: FER 15:45 → FM/S 18:29
PROVIDERS: ADMIT Internal Medicine; ATTEND Nurse Practitioner Acute Care
DX: N17.9 Acute kidney failure, unspecified (principal); E87.1 Hypo-osmolality and hyponatremia; F20.0 Paranoid schizophrenia; I50.30 Unspecified diastolic (congestive) heart failure; M62.82 Rhabdomyolysis; I13.0 Hypertensive heart and chronic kidney disease with heart failure and stage 1 through stage 4 chronic kidney disease, or unspecified chronic kidney disease; I95.9 Hypotension, unspecified; R00.0 Tachycardia, unspecified; I25.10 Atherosclerotic heart disease of native coronary artery without angina pectoris; E78.5 Hyperlipidemia, unspecified; J44.9 Chronic obstructive pulmonary disease, unspecified; F41.8 Other specified anxiety disorders; E86.0 Dehydration; I25.2 Old myocardial infarction; F03.90 Unspecified dementia, unspecified severity, without behavioral disturbance, psychotic disturbance, mood disturbance, and anxiety; E83.42 Hypomagnesemia; G24.01 Drug induced subacute dyskinesia; K42.9 Umbilical hernia without obstruction or gangrene; N18.9 Chronic kidney disease, unspecified; Z98.61 Coronary angioplasty status
CPT/HCPCS: 36415; 70450-TC; 71045-TC-FY; 71250-TC; 72125-TC; 74176-TC; 80053; 81003; 82550; 82553; 82803; 83605; 83735; 84100; 84484; 85025; 85610; 85730; 86850; 86900; 86901; 87086; 93005; 97116-GP; 97162-GP; 99285-25; J0131; J1644; J7030

== ENCOUNTER 2019-05-05 10:51 | Emergency (ER) | payer OTHER, BC ==
[2019-05-05] MEDS ORDERED: predniSONE 20 MG TABLET (UD) PO ONE (11:00)
[2019-05-05] MEDS ORDERED: ALPRAZolam 1 MG TABLET PO PRN (11:00)
[2019-05-05] MEDS ORDERED: ALBUTEROL SO4 2.5/IPRATROPIUM 0.5 INH SOL 3 ML VIAL.NEB. NEB ONE ×4 (11:00→11:58)
[2019-05-05 11:03] VITALS: TEMP 98.3; BMI 28.1
[2019-05-05] MEDS ORDERED: predniSONE 20 MG TABLET (UD) ONE (11:03)
[2019-05-05] MEDS ORDERED: ALPRAZolam 0.25 MG TABLET ONE (11:03)
--- NOTE | 2019-05-05 11:06 | PDOC ---
History of Present Illness - General Chief Complaint: Shortness of Breath Stated Complaint: SOB, REFILL OF XANAX Time Seen by Provider: 05/05/19 10:54 History Source: Patient Exam Limitations: No Limitations - History of Present Illness Initial Comments: 05/05/19 11:01 74 y/o male with SOB and anxiety. States increase SOB over last few days. Denies chest pain or N/V/d/c. Has not taken any inhalers. Denies recent infection No cough. Past History - Past Medical History Allergies/Adverse Reactions: Allergies Allergy/AdvReac Type Severity Reaction Status Date / Time No Known Allergies Allergy Verified 05/05/19 10:52 Home Medications: Ambulatory Orders Escitalopram Oxalate [Lexapro -] 30 mg PO DAILY 04/29/14 Alprazolam [Xanax] 1 mg PO TID 11/19/14 Bupropion HCl [Wellbutrin Xl -] 300 mg PO DAILY 06/14/15 Lisinopril 10 mg PO DAILY 10/28/16 Clopidogrel Bisulfate [Plavix -] 75 mg PO DAILY 04/23/17 Budesonide/Formeterol Fumarate [SYMBICORT 160/4.5mcg -] 2 puff IH BID #1 inhaler 04/27/17 Tiotropium [place] [Spiriva] 2 inh IH DAILY #30 cap.w.dev 01/22/18 Aspirin [ASA -] 81 mg PO DAILY 01/28/19 Fenofibrate 50 mg PO DAILY 01/28/19 Risperidone 0.5 mg PO BID 01/28/19 Alprazolam [Xanax] 0.5 mg PO BID #4 tablet MDD 2 05/05/19 predniSONE [Deltasone -] 20 mg PO BID #10 tablet 05/05/19 Anemia: No Asthma: No Cancer: No Cardiac Disorders: Yes (cardiac [id number], history of CT 2005) CVA: No COPD: Yes CHF: No DVT: No Dementia: (FORGETFUL) Diabetes: No GI Disorders: Yes (HEARTBURN) Disorders: No HTN: Yes Hypercholesterolemia: Yes Liver Disease: No Psychiatric Problems: Yes Seizures: No Thyroid Disease: No - Surgical History Abdominal Surgery: Yes (AAA 02/03/2017) Appendectomy: No Cardiac Surgery: Yes (cardiac stent 2005 & 04/2017) Cholecystectomy: No Lung Surgery: No Neurologic Surgery: No Orthopedic Surgery: No - Psycho Social/Smoking Cessation Hx Smoking Status: No Smoking History: Never smoked Have you smoked in the past 12 months: No Number of Cigarettes Smoked Daily: 0 If you are a former smoker, when did you quit?: 2005 Information on smoking cessation initiated: No Hx Alcohol Use: No Drug/Substance Use Hx: No Substance Use Type: Alcohol Hx Substance Use Treatment: No Review of Systems - Review of Systems Able to Perform ROS?: Yes Is the patient limited Niuean proficient: No Constitutional: No: Chills, Fever Respiratory: Yes: Cough, Shortness of Breath. No: Wheezing Cardiac (ROS): No: Chest Pain, Edema Musculoskeletal: No: Back Pain, Joint Pain All Other Systems: Reviewed and Negative *Physical Exam - Vital Signs Last Vital Signs Temp Pulse Resp BP Pulse Ox 98.3 F 54 L 20 136/111 H 100 05/05/19 10:52 05/05/19 10:52 05/05/19 10:52 05/05/19 10:52 05/05/19 10:52 - Physical Exam General Appearance: Yes: Appropriately Dressed. No: Apparent Distress HEENT: positive: EOMI, CHARAN, Normal ENT Inspection, Normal Voice, Other ( tardive dyskensia (chronic)) Neck: positive: Trachea midline, Normal Thyroid. negative: Tender, Rigid Respiratory/Chest: negative: Chest Tender, Lungs Clear (coarse breath sounds, no wheezing), Normal Breath Sounds, Respiratory Distress Cardiovascular: positive: Regular Rhythm, Regular Rate, S1, S2. negative: Edema , JVD, Murmur Vascular Pulses: Femoral (R): 4+, Femoral (L): 4+, Carotid (R): 4+, Carotid (L) : 4+, Dorsalis-Pedis (R): 4+, Doralis-Pedis (L): 4+ Gastrointestinal/Abdominal: positive: Flat, Soft. negative: Normal Bowel Sounds , Tender, Organomegaly Lymphatic: negative: Adenopathy, Tenderness, Other Musculoskeletal: positive: Normal Inspection. negative: CVA Tenderness Extremity: positive: Normal Capillary Refill, Normal Inspection, Normal Range of Motion Integumentary: positive: Normal Color, Dry, Warm Neurologic: positive: supervisor filter assembly II-XII NML intact, Fully Oriented, Alert, Normal Mood/ Affect, Normal Response, Motor Strength / ED Treatment Course - ADDITIONAL ORDERS Additional order review: 05/05/19 11:05 Nebulizer treatment and will place on Prednisone Will give a few Xanax pills If worsen return to ER ED Progress Note - Progress Note Progress Note: 05/05/19 11:24 Pt is better after treatment Will send home on Prednisone If worsen return to ER Pt is in agreement with plan Discharge - Discharge Information Problems reviewed: Yes Clinical Impression/Diagnosis: COPD (chronic obstructive pulmonary disease) Qualifiers: COPD type: unspecified COPD Qualified Code(s): J44.9 - Chronic obstructive pulmonary disease, unspecified Condition: Good Disposition: HOME - Admission No - Additional Discharge Information Prescription Drug Monitoring Program (I-STOP) results: I-STOP reviewed and no issues identified ([facility] [id number]) - Follow up/Referral Referrals: Chandu Hogan MD [Primary Care Provider] - - Patient Discharge Instructions Patient Printed Discharge Instructions: DI for Chronic Obstructive Pulmonary Disease Additional Instructions: Xanax 0.5 mg daily as needed Continue breathing treatment Prednisone 20 mg 2x/day for 5 days If worsen return to ER - Post Discharge Activity
[2019-05-05 11:38] VITALS: BP 127/73; PULSE 95
== END 2019-05-05 12:26 | disposition home or self-care (01) ==
LOC: FER 10:51
PROC: 3E0F7GC Introduction of Other Therapeutic Substance into Respiratory Tract, Via Natural or Artificial Opening (ICD-10-PCS; principal; 2019-05-05)
DX: J44.9 Chronic obstructive pulmonary disease, unspecified (principal); I10 Essential (primary) hypertension; I25.2 Old myocardial infarction; Z95.5 Presence of coronary angioplasty implant and graft; E78.00 Pure hypercholesterolemia, unspecified; R41.3 Other amnesia
CPT/HCPCS: 99282-25

== ENCOUNTER 2019-05-30 11:22 | Emergency (ER) | payer OTHER, BC ==
[2019-05-30 11:35] VITALS: BP 139/54; PULSE 61; TEMP 98.4; BMI 27.8
--- NOTE | 2019-05-30 11:54 | PDOC ---
History of Present Illness - General Chief Complaint: Urinary Problem Stated Complaint: CAN NOT URINATE Time Seen by Provider: 05/30/19 11:26 - History of Present Illness Initial Comments: 05/30/19 11:52 74 M with h/o HTN, HLD, CAD s/p [place] s/p stents, COPD, diastolic HF, AAA repair with stent, chronic hyponatremia, paranoid schizophrenia, tardive dyskinesia, dementia, and anxiety/depression, presenting to ED with urinary retention. Last time pt was able to void was last night. Denies any flank pain. Denies F/C. States that he has an urge to urinate. Pt has had similar episode in the past that required gutiérrez catheter. Past History - Past Medical History Allergies/Adverse Reactions: Allergies Allergy/AdvReac Type Severity Reaction Status Date / Time No Known Allergies Allergy Verified 05/30/19 11:25 Home Medications: Ambulatory Orders Escitalopram Oxalate [Lexapro -] 30 mg PO DAILY 04/29/14 Alprazolam [Xanax] 1 mg PO TID 11/19/14 Bupropion HCl [Wellbutrin Xl -] 300 mg PO DAILY 06/14/15 Lisinopril 10 mg PO DAILY 10/28/16 Clopidogrel Bisulfate [Plavix -] 75 mg PO DAILY 04/23/17 Budesonide/Formeterol Fumarate [SYMBICORT 160/4.5mcg -] 2 puff IH BID #1 inhaler 04/27/17 Tiotropium [place] [Spiriva] 2 inh IH DAILY #30 cap.w.dev 01/22/18 Aspirin [ASA -] 81 mg PO DAILY 01/28/19 Fenofibrate 50 mg PO DAILY 01/28/19 Risperidone 0.5 mg PO BID 01/28/19 Alprazolam [Xanax] 0.5 mg PO BID #4 tablet MDD 2 05/05/19 predniSONE [Deltasone -] 20 mg PO BID #10 tablet 05/05/19 Anemia: No Asthma: No Cancer: No Cardiac Disorders: Yes (cardiac [id number], history of VA 2005) CVA: No COPD: Yes CHF: No DVT: No Dementia: (FORGETFUL) Diabetes: No GI Disorders: Yes (HEARTBURN) Disorders: No HTN: Yes Hypercholesterolemia: Yes Liver Disease: No Psychiatric Problems: Yes Seizures: No Thyroid Disease: No - Surgical History Abdominal Surgery: Yes (AAA 02/03/2017) Appendectomy: No Cardiac Surgery: Yes (cardiac stent 2005 & 04/2017) Cholecystectomy: No Lung Surgery: No Neurologic Surgery: No Orthopedic Surgery: No - Psycho Social/Smoking Cessation Hx Smoking Status: No Smoking History: Former smoker Have you smoked in the past 12 months: No Number of Cigarettes Smoked Daily: 0 If you are a former smoker, when did you quit?: 2005 Information on smoking cessation initiated: No Hx Alcohol Use: No Drug/Substance Use Hx: No Substance Use Type: Alcohol Hx Substance Use Treatment: No Review of Systems - Review of Systems Comments:: 05/30/19 11:53 "GENERAL/CONSTITUTIONAL: No fever or chills. No weakness. HEAD, EYES, EARS, NOSE AND THROAT: No change in vision. No ear pain or discharge. No sore throat. CARDIOVASCULAR: No chest pain, no shortness of breath, no loss of consciousness RESPIRATORY: No cough, wheezing, or hemoptysis. GASTROINTESTINAL: No nausea, vomiting, diarrhea or constipation. GENITOURINARY: + urinary retention MUSCULOSKELETAL: No joint or muscle swelling or pain. No neck or back pain. SKIN: No rash NEUROLOGIC: No vertigo, no change in strength/sensation. ENDOCRINE: No increased thirst. No abnormal weight change. HEMATOLOGIC/LYMPHATIC: No anemia, easy bleeding, or history of blood clots. ALLERGIC/IMMUNOLOGIC: No hives or skin allergy. *Physical Exam - Vital Signs Last Vital Signs Temp Pulse Resp BP Pulse Ox 98.4 F 61 20 139/54 L 96 05/30/19 11:23 05/30/19 11:23 05/30/19 11:23 05/30/19 11:23 05/30/19 11:23 - Physical Exam 05/30/19 11:54 "GENERAL: Awake, alert, and fully oriented, in no acute distress. HEAD: No signs of trauma EYES: PERRLA, EOMI, sclera anicteric, conjunctiva clear ENT: Auricles normal inspection, hearing grossly normal, nares patent, oropharynx clear without exudates. Moist mucosa NECK: Nontender, no stepoffs, Normal ROM, supple, no lymphadenopathy, JVD, or masses LUNGS: Breath sounds equal, clear to auscultation bilaterally. No wheezes, and no crackles HEART: Regular rate and rhythm, normal S1 and S2, no murmurs, rubs or gallops ABDOMEN: Soft, nontender, normoactive bowel sounds. No guarding, no rebound. No masses EXTREMITIES: Normal range of motion, no edema. No clubbing or cyanosis. No cords, erythema, or tenderness NEUROLOGICAL: Cranial nerves II through XII intact. 5/5 strength and sensation in all extremities, Normal speech, normal gait, normal cerebellar function SKIN: Warm, Dry, normal turgor, no rashes or lesions noted. ED Treatment Course - LABORATORY CBC & Chemistry Diagram: 05/30/19 12:17 05/30/19 12:17 Medical Decision Making - Medical Decision Making 05/30/19 11:54 74 M with urinary retention since last night. - Labs, UA - Gutiérrez catheter 05/30/19 12:24 Catheter inserted with drainage of 1.5L urine 05/30/19 13:10 Labs wnl Pt reporting constipation, requesting mag citrate. Abdominal exam benign. Pt is well appearing, with normal vitals. Clinically stable for DC at this time. I discussed the physical exam findings, ancillary test results and final diagnoses with the patient. I answered all of the patient's questions. The patient was satisfied with the care received and felt comfortable with the discharge plan and treatment plan. The patient agrees to follow up with the primary care physician within 24-72 hours. Discharge - Discharge Information Problems reviewed: Yes Clinical Impression/Diagnosis: Urinary retention Condition: Improved Disposition: HOME - Follow up/Referral Referrals: Nader Jeong MD [Staff Physician] - - Patient Discharge Instructions Patient Printed Discharge Instructions: How to Care for Your Gutiérrez Catheter -- Male, DI for Urinary Retention in Men Additional Instructions: You must see a urologist within 1 week for further evaluation of your urinary retention. Call the number provided to make an appointment. If you experience any pain, fevers, cloudy or foul smelling urine, or any other concerning symptoms, return to the ER immediately. - Post Discharge Activity
[2019-05-30 12:36] LABS: BASO % 0.3 % (0-2.0); EOS % 3.7 % (0-4.5); HEMATOCRIT 36.2 % (35.4-49); HEMOGLOBIN 12.3 GM/dl (11.7-16.9); LYMPH % 12.9 % (8-40); MCH 32.6 pg (25.7-33.7); MCHC 33.9 g/dl (32.0-35.9); MEAN CELL VOLUME 96.2 fl (80-96); MEAN PLT VOLUME 6.8 fl (7.5-11.1); MONO % 7.5 % (3.8-10.2); NEUT % 75.6 % (42.8-82.8); PLATELET COUNT 349 K/MM3 (134-434); RBC 3.76 M/mm3 (4.00-5.60); WHITE BLOOD COUNT 7.1 K/mm3 (4.0-10.8)
[2019-05-30 12:42] LABS: ALBUMIN 3.4 g/dl (3.4-5.0); BILIRUBIN,TOTAL 0.6 mg/dl (0.2-1); CALCIUM 8.7 mg/dl (8.5-10); CREATININE 1.3 mg/dl (0.55-1.3); POTASSIUM 4.3 mmol/L (3.5-5.1); TOT PROT 5.7 g/dl (6.4-8.2)
[2019-05-30] MEDS ORDERED: MAGNESIUM CITRATE 300 ML BOTTLE PO ONE (14:38)
[2019-05-30] MEDS ORDERED: ACETAMINOPHEN 325 MG TABLET (FP) PO ONE (14:38)
[2019-05-30] MEDS ORDERED: MAGNESIUM CITRATE 300 ML BOTTLE ONE (14:39)
[2019-05-30] MEDS ORDERED: ACETAMINOPHEN 325 MG TABLET (FP) ONE (14:39)
== END 2019-05-30 15:22 | disposition home or self-care (01) ==
LOC: FER 11:22
PROC: 0T9B70Z Drainage of Bladder with Drainage Device, Via Natural or Artificial Opening (ICD-10-PCS; principal; 2019-05-30)
DX: R33.9 Retention of urine, unspecified (principal); I10 Essential (primary) hypertension; E78.5 Hyperlipidemia, unspecified; I25.10 Atherosclerotic heart disease of native coronary artery without angina pectoris; I25.2 Old myocardial infarction; J44.9 Chronic obstructive pulmonary disease, unspecified; I71.4 Abdominal aortic aneurysm, without rupture; Z95.5 Presence of coronary angioplasty implant and graft; E87.1 Hypo-osmolality and hyponatremia; F20.0 Paranoid schizophrenia
CPT/HCPCS: 36415; 80053; 81003; 85025; 87086; 99283-25

== ENCOUNTER 2019-06-12 17:08 | Inpatient (IN) | payer OTHER, BC ==
--- NOTE | 2019-06-12 18:35 | PDOC ---
History of Present Illness - General Chief Complaint: Injury Stated Complaint: FALL - History of Present Illness Initial Comments: Roberto Carlos Ann is a 74yo man with a PMH Of HTN, HLD, CAD s/p [place] s/p stents, COPD , diastolic HF, AAA repair with stent, chronic hyponatremia, paranoid schizophrenia, tardive dyskinesia, dementia, and anxiety/depression who presents after he was found on the floor at home after sliding out of bed. He denies any injury or LOC but says that he was unable to get up off the floor. Per report, his brother apparently stated that the patient was on the ground for about 5 hours. He is concerned that Mr Ann is unable to care for himself at home. Past History - Past Medical History Allergies/Adverse Reactions: Allergies Allergy/AdvReac Type Severity Reaction Status Date / Time No Known Allergies Allergy Verified 06/12/19 19:46 Home Medications: Ambulatory Orders Escitalopram Oxalate [Lexapro -] 30 mg PO DAILY 04/29/14 Bupropion HCl [Wellbutrin Xl -] 300 mg PO DAILY 06/14/15 Lisinopril 10 mg PO DAILY 10/28/16 Clopidogrel Bisulfate [Plavix -] 75 mg PO DAILY 04/23/17 Budesonide/Formeterol Fumarate [SYMBICORT 160/4.5mcg -] 2 puff IH BID #1 inhaler 04/27/17 Tiotropium [place] [Spiriva] 2 inh IH DAILY #30 cap.w.dev 01/22/18 Aspirin [ASA -] 81 mg PO DAILY 01/28/19 Fenofibrate 50 mg PO DAILY 01/28/19 Risperidone 0.5 mg PO BID 01/28/19 predniSONE [Deltasone -] 20 mg PO BID #10 tablet 05/05/19 Alprazolam [Xanax] 0.5 mg PO DAILY MDD 2 06/09/19 Budesonide/Formeterol Fumarate [SYMBICORT 160/4.5mcg -] 1 inh PO BID 06/12/19 Anemia: No Asthma: No Cancer: No Cardiac Disorders: Yes (cardiac [id number], history of [place] 2005) CVA: No COPD: Yes CHF: No DVT: No Dementia: (FORGETFUL) Diabetes: No GI Disorders: Yes (HEARTBURN) Disorders: No HTN: Yes Hypercholesterolemia: Yes Liver Disease: No Psychiatric Problems: Yes Seizures: No Thyroid Disease: No - Surgical History Abdominal Surgery: Yes (AAA 02/03/2017) Appendectomy: No Cardiac Surgery: Yes (cardiac stent 2005 & 04/2017) Cholecystectomy: No Lung Surgery: No Neurologic Surgery: No Orthopedic Surgery: No - Psycho Social/Smoking Cessation Hx Smoking Status: No Smoking History: Never smoked Have you smoked in the past 12 months: No Number of Cigarettes Smoked Daily: 0 If you are a former smoker, when did you quit?: 2005 Hx Alcohol Use: No Drug/Substance Use Hx: No Substance Use Type: Alcohol Hx Substance Use Treatment: No Review of Systems - Review of Systems Comments:: General: No fevers, no chills, no weight or appetite change, no malaise HEENT: No changes in vision, no changes in hearing, no congestion, no sore throat CV: No chest pain, no palpitations, no LE edema Pulm: No SOB, no cough, no wheezing GI: No nausea or vomiting, no change in bowel habits, no melena : No frequency, no urgency, no dysuria Musc: No back pain, no joint swelling, no recent injury Skin: No rash, no lesions, no erythema Endo: No excessive thirst, no heat/cold intolerance Heme: No unusual bruising or bleeding, no swollen glands Neuro: No syncope, no numbness/tingling, no focal weakness Vasc: No claudication Psych: No recent change in mood, no SI or HI *Physical Exam - Vital Signs Last Vital Signs Temp Pulse Resp BP Pulse Ox 97.7 F 116 H 20 136/84 96 06/12/19 17:15 06/12/19 17:15 06/12/19 17:15 06/12/19 17:15 06/12/19 17:15 - Physical Exam General: Comfortable, no acute distress HEENT: No visible trauma. ERRL, EOMI, MMM, voice normal, no posterior neck tenderness Cards: RRR, no murmur appreciated Pulm: Comfortable on room air, clear to auscultation bilaterally Abd: Soft, nontender, nondistended Ext: Atraumatic. No LE edema. Moves all extremities. Skin: Normal color, no rashes or lesions Neuro: Awake, alert. Unable to provide detail regarding fall. CN grossly intact , normal speech, motor/sensory grossly intact and symmetric Psych: Pleasant, cooperative ED Treatment Course - LABORATORY CBC & Chemistry Diagram: 06/12/19 19:00 06/12/19 19:00 Medical Decision Making - Medical Decision Making 06/12/19 18:34 Roberto Carlos Ann is a 74yo man with a PMH Of HTN, HLD, CAD s/p [place] s/p stents, COPD , diastolic HF, AAA s/p repair with stent, chronic hyponatremia, paranoid schizophrenia, tardive dyskinesia, dementia, and anxiety/depression who presents after he was found on the floor at home after sliding out of bed. He denies any injury or LOC but says that he was unable to get up off the floor. He was reportedly on the ground for about 5 hours. - Apparent fall out of bed without injury, but pt unable to provide much information and event was unwitnessed - Pt appears to be altered. Unclear cause, no fever, no current complaints - CBC, CMP, trop, EKG, CXR, UA, UCx - Will check for elevated CK as pt was on the ground, possibly for an extended period, but at least 5 hours. - CT head, CT c-spine given possible fall 06/12/19 21:31 - CT head, CT c-spine without acute pathology. Notes chronic T3 fracture. Possible normal pressure hydrocephalus - Labs reviewed. Mild leukocytosis to 13. Otherwise no concerning abnormalities - UA grossly positive. Antibiotics ordered - Examined by Dr Medina, now w/ lower abdominal tenderness. May be due to UTI , but will send for CT to evaluate for other causes of generalized abdominal pain. 06/12/19 22:20 - Pt signed out to Dr Trejo for the remainder of his ED care Discussed with Dr Carol Almaguer PGY2 Discharge - Discharge Information Problems reviewed: Yes Clinical Impression/Diagnosis: Fall Qualifiers: Encounter type: initial encounter Qualified Code(s): W19.XXXA - Unspecified fall, initial encounter - Follow up/Referral - Patient Discharge Instructions - Post Discharge Activity
--- NOTE | 2019-06-12 19:35 | PDOC ---
Attending Attestation - Resident Resident Name: Ashely Almaguer - ED Attending Attestation I have performed the following: I have examined & evaluated the patient, The case was reviewed & discussed with the resident, I agree w/resident's findings & plan - HPI HPI: 06/12/19 22:16 see resident hpi - Physicial Exam PE: 06/12/19 22:16 see resident exam - Medical Decision Making 06/12/19 22:16 74-year-old male slid out of bed, found by brother who is concerned for his safety at home Patient found to have a urinary tract infection CT scans of the head cervical spine and abdomen/pelvis We will admit to medical service, antibiotics
[2019-06-12 19:38] LABS: BASO % 0.6 % (0-2.0); EOS % 0.1 % (0-4.5); HEMATOCRIT 40.5 % (35.4-49); HEMOGLOBIN 13.7 GM/dL (11.7-16.9); MCH 32.5 pg (25.7-33.7); MCHC 33.9 g/dl (32.0-35.9); MEAN CELL VOLUME 95.8 fl (80-96); MEAN PLT VOLUME 7.2 fl (7.5-11.1); MONO % 7.1 % (3.8-10.2); NEUT % 87.2 % (42.8-82.8); PLATELET COUNT 371 K/MM3 (134-434); RBC 4.23 M/mm3 (4.00-5.60); WHITE BLOOD COUNT 13.2 K/mm3 (4.0-10.0)
[2019-06-12 20:09] LABS: ALBUMIN 3.5 g/dl (3.4-5.0); ALK PHOS 80 U/L (45-117); ANION GAP 7 MMOL/L (8-16); BILIRUBIN,TOTAL 0.2 mg/dL (0.2-1); CALCIUM 9.7 mg/dL (8.5-10.1); CHLORIDE 103 mmol/L (98-107); CO2 27 mmol/L (21-32); CREATININE 1.4 mg/dL (0.55-1.3); GLUCOSE,RANDOM 110 mg/dL (74-106); MAGNESIUM 2.1 mg/dL (1.8-2.4); POTASSIUM 4.8 mmol/L (3.5-5.1); SGOT/AST 16 U/L (15-37); SGPT/ALT 31 U/L (13-61); SODIUM 137 mmol/L (136-145); TOT PROT 6.4 g/dl (6.4-8.2)
[2019-06-12 21:26] LABS: EPI CELLS 0.5 /HPF (0-5/HPF); HYALINE CASTS 18 /lpf (0-8); URINE APPEARANCE CLEAR; URINE BILIRUBIN NEGATIVE (NEGATIVE); URINE COLOR YELLOW; URINE GLUCOSE (UA) NEGATIVE (NEGATIVE); URINE KETONE NEGATIVE (NEGATIVE); URINE LEUK ESTERASE 1+ (NEGATIVE); URINE NITRITE POSITIVE (NEGATIVE); URINE PROTEIN NEGATIVE (NEGATIVE); URINE RBC 4 /hpf (0-4); URINE WBC 28 /hpf (0-5)
[2019-06-12] MEDS ORDERED: CEFTRIAXONE 1,000 MG in DEXTROSE 5%-WATER - 50 ML IVPB ONE (21:36)
[2019-06-12] MEDS ORDERED: CEFTRIAXONE 1 GM/50 ML BAG ONE (23:07)
--- NOTE | 2019-06-12 23:10 | PDOC ---
*Physical Exam - Vital Signs Last Vital Signs Temp Pulse Resp BP Pulse Ox 97.7 F 102 H 22 H 112/83 96 06/12/19 17:15 06/12/19 21:01 06/12/19 21:01 06/12/19 21:01 06/12/19 21:01 ED Treatment Course - LABORATORY CBC & Chemistry Diagram: 06/12/19 19:00 06/12/19 19:00 - ADDITIONAL ORDERS Additional order review: Laboratory Results 06/12/19 06/12/19 20:41 19:00 Sodium 137 Potassium 4.8 Chloride 103 Carbon Dioxide 27 Anion Gap 7 L BUN 29.0 H Creatinine 1.4 H Est GFR (CKD-EPI)AfAm 56.56 Est GFR (CKD-EPI)NonAf 48.80 Random Glucose 110 H Calcium 9.7 Magnesium 2.1 Total Bilirubin 0.2 AST 16 ALT 31 Alkaline Phosphatase 80 Creatine Kinase 167 Creatine Kinase Index No Result Required. CK-MB (CK-2) < 1.0 Troponin I < 0.02 Total Protein 6.4 Albumin 3.5 Urine Color Yellow Urine Appearance Clear Urine pH 6.0 Ur Specific [place] 1.015 Urine Protein Negative Urine Glucose (UA) Negative Urine Ketones Negative Urine Blood 1+ H Urine Nitrite Positive H Urine Bilirubin Negative Urine Urobilinogen 1.0 Ur Leukocyte Esterase 1+ H Urine WBC (Auto) 28 Urine RBC (Auto) 4 Urine Casts (Auto) 18 U Epithel Cells (Auto) 0.5 Urine Bacteria (Auto) 7245.0 06/12/19 19:00 RBC 4.23 MCV 95.8 MCHC 33.9 RDW 13.0 MPV 7.2 L Neutrophils % 87.2 H Lymphocytes % 5.0 L D Monocytes % 7.1 Eosinophils % 0.1 D Basophils % 0.6 - Medications Given in the ED: ED Medications Discontinued Medications Generic Name Dose Route Start Last Admin Trade Name Freq PRN Reason Stop Dose Admin Ceftriaxone Sodium 1,000 mg/ 50 mls @ 100 mls/hr 06/12/19 21:36 06/12/19 23: 07 Dextrose IVPB 06/12/19 22:05 100 mls/hr ONCE ONE Administration Medical Decision Making - Medical Decision Making 06/12/19 23:[address] Almaguer 74y M with PMH Of HTN, HLD, CAD s/p [place] s/p stents, COPD, diastolic HF, AAA repair with stent, chronic hyponatremia, paranoid schizophrenia, tardive dyskinesia, dementia, and anxiety/depression who presents after he was found on the floor at home after sliding out of bed. He denies any injury or LOC but says that he was unable to get up off the floor x5h. pending CTAP. labs show uti. started on rocephin (previous cultures negative). ct head and cspine negative. cr at baseline. leukocytosis. will admit for uti. 06/13/19 00:30 CTAP No evidence of acute pathology. Stented aortic aneurysm without perianeurysmal edema. Discharge - Discharge Information Problems reviewed: Yes Clinical Impression/Diagnosis: Fall Qualifiers: Encounter type: initial encounter Qualified Code(s): W19.XXXA - Unspecified fall, initial encounter UTI (urinary tract infection) Qualifiers: Urinary tract infection type: site unspecified Hematuria presence: without hematuria Qualified Code(s): N39.0 - Urinary tract infection, site not specified Condition: Stable - Admission Yes - Follow up/Referral - Patient Discharge Instructions - Post Discharge Activity
--- NOTE | 2019-06-13 01:05 | PN ---
Teaching Attending Note Name of Resident: Jerry Bazan ATTENDING PHYSICIAN STATEMENT I saw and evaluated the patient. I reviewed the resident's note and discussed the case with the resident. I agree with the resident's findings and plan as documented. SUBJECTIVE: Patient is a 74 year old man with a PMH of HTN, HLD, CAD, [place] s/p stents, COPD, HFpEF, AAA repair with stent, Chronic hyponatremia, Paranoid schizophrenia, Tardive dyskinesia, Dementia, and Anxiety/depression who presents after he was found on the floor at home after sliding out of bed. He denies any injury or LOC but says that he was unable to get up off the floor. Per report, his brother apparently stated that the patient was on the ground for about 5 hours. He is concerned that patient is unable to care for himself at home. Denies fever , chills, headache, vomiting, dysuria or diarrhea. Denies alcohol, tobacco or illicit drug use. No sick contacts or recent travels. OBJECTIVE: Alert Vital Signs Period Temp Pulse Resp BP Sys/Gonzales Pulse Ox Last 24 Hr 97.7 F 102-116 20-22 112-136/83-84 96-96 HEENT: No Jaundice, eye redness or discharge, PERRLA, EOMI. Normocephalic, atraumatic. Edentulous. External ears are normal and hearing is grossly intact. No nasal discharge. Neck: Supple, nontender. No palpable adenopathy or thyromegaly. No JVD Chest: Good effort. Clear to auscultation and percussion. Heart: Regular. No S3, rub or murmur Abdomen: Not distended, soft, nontender and no HSM. No rebound or guarding. Normal bowel sounds. Ext: Peripheral pulses intact. No leg edema. Skin: Warm and dry. No petechiae, rash or ecchymosis. Neuro: Alert. Oriented x3. CN 2-12 grossly intact. Sensation grossly intact in all four extremities and DTR are symmetric. Psych: Appropriate mood and affect. Good insight. Home Medications Medication Instructions Recorded Escitalopram Oxalate [Lexapro -] 30 mg PO DAILY 04/29/14 Bupropion HCl [Wellbutrin Xl -] 300 mg PO DAILY 06/14/15 Lisinopril 10 mg PO DAILY 10/28/16 Clopidogrel Bisulfate [Plavix -] 75 mg PO DAILY 04/23/17 Budesonide/Formeterol Fumarate 2 puff IH BID #1 inhaler 04/27/17 [SYMBICORT 160/4.5mcg -] Tiotropium [place] [Spiriva] 2 inh IH DAILY #30 cap.w.dev 01/22/18 Aspirin [ASA -] 81 mg PO DAILY 01/28/19 Fenofibrate 50 mg PO DAILY 01/28/19 Risperidone 0.5 mg PO BID 01/28/19 predniSONE [Deltasone -] 20 mg PO BID #10 tablet 05/05/19 Alprazolam [Xanax] 0.5 mg PO DAILY MDD 2 06/09/19 Budesonide/Formeterol Fumarate 1 inh PO BID 06/12/19 [SYMBICORT 160/4.5mcg -] Abnormal Lab Results 06/12/19 06/12/19 06/12/19 19:00 19:00 20:41 WBC 13.2 H MPV 7.2 L Absolute Neuts (auto) 11.6 H Neutrophils % 87.2 H Lymphocytes % 5.0 L D Anion Gap 7 L BUN 29.0 H Creatinine 1.4 H Random Glucose 110 H Urine Blood 1+ H Urine Nitrite Positive H Ur Leukocyte Esterase 1+ H ASSESSMENT AND PLAN: 1. UTI/?Fall - C-spine CT shows chronic T3 compression fracture and possible aneurysm in the aortic arch. No acute abnormality on head CT, CXR or abdomen/ pelvis CT pending. Started on IV Rocephin pending culture. EKG shows NSR with PSVC, inferior/anterolateral infarct of undetermined ages. Initial troponin is negative. Will rule out ACS. Consult PT and Neurology. Do neurochecks and implement fall precautions. Consult pin worker for possible placement. Will continue comprehensive care for all of patients comorbid conditions. 2. CKD? - Cause unclear. Will get basic nephrologic workup, hydrate gently and monitor urine output. Will consult nephrology and avoid nephrotoxic agents such as NSAIDS, aminoglycosides, contrast dyes and certain Alternative medicine products. 3. Hypertension - Restart suitable outpatient antihypertensive drugs when clinically appropriate. Revise regimen to ensure [id number] excellent BP control and vocational counselor patient on the injurious effects of uncontrolled hypertension. Nonpharmacologic measures to control hypertension like weight loss , salt restriction and exercise discussed. Importance of adherence to treatment regimen and attainment of normotension emphasized. 4. DVT prophylaxis - Heparin 5000u sq tid. 5. Advance directives - Full code
--- NOTE | 2019-06-13 03:30 | HP ---
CHIEF COMPLAINT: fall PCP: Dr. Hogan HISTORY OF PRESENT ILLNESS: Roberto Carlos Ann is a 74 year old male with a past medical history of HTN, HLD, CAD s/p [place] s/p stents 2005, 2017, COPD, diastolic HF, AAA repair with stent, chronic hyponatremia, paranoid schizophrenia x 40 years, tardive dyskinesia, and anxiety/depression who presented to the ED for a fall out of bed. Patient stated that in the morning he attempted to rise out of bed but felt weak and slid out of bed noting that he hit his back and neck. He denied hitting his head. Noted that he remained on the floor for about 5 hours and was unable to get up or move around well before his brother checked on his and brought him to the hospital. Currently only endorses back pain. Patient denied any prodromal symptoms prior to the fall of chest pain, sob, palpitations, dizziness, lightheadedness, n/v, diaphoresis. Denied syncopal episode. Additionally denied abd pain, constipation, diarrhea, fever, chills, numbness, tingling, focal weakness, visual changes, dysuria, hematuria, frequency, urgency, hesitancy, incomplete emptying. Denied sick contacts or recent travel. ER course was notable for: (1) HR 102-116 (2) WBC 13.2 with left shift, BUN 29.0, CRE 1.4 (baseline 1.4-1.6), UA 1+ blood , + nitrites, 1+ LE, 28 WBC, 7245 bacteria IMAGING: CXR with no acute pathology Head CT: No CT evidence of acute intracranial pathology. Note is again made of at least moderate dilatation of the lateral ventricles probably due to central atrophy. Correlate clinically in regards to the possibility of normal pressure hydrocephalus. Cervical spine CT: No acute fracture is seen. Moderate to marked chronic T3 vertebral body compression fracture. The partially imaged aortic arch demonstrates mild focal bulging along the lateral border which could conceivably represent an incipient aneurysm. Correlation with 6 month follow-up CT is suggested. Emphysematous changes are noted within the partially imaged upper lung brownlee. Abdomen/pelvis CT: IMPRESSION: No evidence of acute pathology. Stented aortic aneurysm without perianeurysmal edema. 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 Allergies No Known Allergies Allergy (Verified 06/12/19 19:46) Verified HOME MEDICATIONS: Home Medications Medication Instructions Recorded Lisinopril 10 mg PO DAILY 10/28/16 Clopidogrel Bisulfate [Plavix -] 75 mg PO DAILY 04/23/17 Tiotropium [place] [Spiriva] 2 inh IH DAILY #30 cap.w.dev 01/22/18 Aspirin [ASA -] 81 mg PO DAILY 01/28/19 Risperidone 2 mg PO BID 01/28/19 Alprazolam [Xanax] 0.5 mg PO DAILY 06/09/19 Rosuvastatin Calcium [Crestor] 10 mg PO DAILY 06/13/19 Tamsulosin HCl 0.4 mg PO DAILY 06/13/19 Zolpidem Tartrate 10 mg PO HS 06/13/19 predniSONE [Deltasone -] 10 mg PO BID 06/13/19 REVIEW OF SYSTEMS CONSTITUTIONAL: generalized weakness Absent: fever, chills, diaphoresis, malaise, loss of appetite HEENT: throat pain Absent: rhinorrhea, nasal congestion, throat swelling, difficulty swallowing, visual changes CARDIOVASCULAR: Absent: chest pain, syncope, palpitations, irregular heart rate, lightheadedness , RESPIRATORY: Absent: cough, shortness of breath, dyspnea with exertion, orthopnea, wheezing GASTROINTESTINAL: Absent: abdominal pain, abdominal distension, nausea, vomiting, diarrhea, constipation GENITOURINARY: Absent: dysuria, frequency, urgency, hesitancy, hematuria, flank pain MUSCULOSKELETAL: back pain, neck pain Absent: myalgia, arthralgia, joint swelling, SKIN: Absent: rash, itching, pallor HEMATOLOGIC/IMMUNOLOGIC: Absent: easy bleeding, easy bruising, lymphadenopathy, frequent infections ENDOCRINE: Absent: unexplained weight gain, unexplained weight loss, heat intolerance, cold intolerance NEUROLOGIC: Absent: headache, focal weakness or paresthesias, dizziness, unsteady gait, seizure, mental status changes PSYCHIATRIC: Absent: anxiety, depression, suicidal or homicidal ideation, hallucinations. PHYSICAL EXAMINATION Vital Signs - 24 hr 06/12/19 06/12/19 06/13/19 17:15 21:01 02:58 Temperature 97.7 F 98.1 F Pulse Rate 116 H Pulse Rate [ 78 Left Radial] Pulse Rate [ 102 H Radial] Respiratory 20 22 H 18 Rate Blood Pressure 136/84 Blood Pressure 126/73 [Left Arm] Blood Pressure 112/83 [Right Arm] O2 Sat by Pulse 96 96 94 L Oximetry (%) GENERAL: Awake, alert, and fully oriented, in no acute distress. Difficult to understand due to no teeth. HEAD: Normal with no signs of trauma. EYES: Pupils equal, round and reactive to light, extraocular movements intact, sclera anicteric, conjunctiva clear. EARS, NOSE, THROAT: Oropharynx with mild erythema, no exudates. Moist mucous membranes. NECK: Normal range of motion, supple without lymphadenopathy, JVD. LUNGS: Breath sounds equal, clear to auscultation bilaterally. No wheezes, and no crackles. No accessory muscle use. HEART: Regular rate and rhythm, normal S1 and S2 without murmur. ABDOMEN: Soft, nontender, not distended, normoactive bowel sounds, no guarding, no rebound, no masses. MUSCULOSKELETAL: Normal range of motion at all joints. Painful to palpation of the thoracic spine. UPPER EXTREMITIES: 2+ pulses, warm, well-perfused. No cyanosis. No clubbing. No peripheral edema. LOWER EXTREMITIES: 2+ pulses, warm, well-perfused. No calf tenderness. No peripheral edema. NEUROLOGICAL: Cranial nerves II-XII intact. 3/5 muscle strength of the bilateral lower extremities, 5/5 of the bilateral upper extremities. Sensation intact to gross touch throughout. PSYCHIATRIC: Cooperative. Good eye contact. Appropriate mood and affect. SKIN: Warm, dry, normal turgor, some ecchymoses present on the bilateral lower extremities. Laboratory Results - last 24 hr 06/12/19 06/12/19 06/12/19 19:00 19:00 20:41 WBC 13.2 H RBC 4.23 Hgb 13.7 Hct 40.5 MCV 95.8 MCH 32.5 MCHC 33.9 RDW 13.0 Plt Count 371 D MPV 7.2 L Absolute Neuts (auto) 11.6 H Neutrophils % 87.2 H Lymphocytes % 5.0 L D Monocytes % 7.1 Eosinophils % 0.1 D Basophils % 0.6 Nucleated RBC % 0 Sodium 137 Potassium 4.8 Chloride 103 Carbon Dioxide 27 Anion Gap 7 L BUN 29.0 H Creatinine 1.4 H Est GFR (CKD-EPI)AfAm 56.56 Est GFR (CKD-EPI)NonAf 48.80 Random Glucose 110 H Calcium 9.7 Magnesium 2.1 Total Bilirubin 0.2 AST 16 ALT 31 Alkaline Phosphatase 80 Creatine Kinase 167 Creatine Kinase Index No Result Required. CK-MB (CK-2) < 1.0 Troponin I < 0.02 Total Protein 6.4 Albumin 3.5 Urine Color Yellow Urine Appearance Clear Urine pH 6.0 Ur Specific [place] 1.015 Urine Protein Negative Urine Glucose (UA) Negative Urine Ketones Negative Urine Blood 1+ H Urine Nitrite Positive H Urine Bilirubin Negative Urine Urobilinogen 1.0 Ur Leukocyte Esterase 1+ H Urine WBC (Auto) 28 Urine RBC (Auto) 4 Urine Casts (Auto) 18 U Epithel Cells (Auto) 0.5 Urine Bacteria (Auto) 7245.0 EKG--> sinus with premature SV complexes, age indeterminate inferior infarct ( old), age indeterminate anterolateral infarct (new), no ST segment changes, QTc 433 ASSESSMENT/PLAN: Roberto Carlos Ann is a 74 year old male with a past medical history of HTN, HLD, CAD s/p [place] s/p stents 2005, 2017, COPD, diastolic HF, AAA repair with stent, chronic hyponatremia, paranoid schizophrenia x 40 years, tardive dyskinesia, and anxiety/depression admitted for fall likely secondary to UTI and deconditioning. Fall likely secondary to sepsis due to UTI and deconditioning - UA as above - WBC 13.2, HR 116 - given ceftriaxone in ED - continue ceftriaxone 1g daily - blood and urine cultures pending, previous cultures without growth - physical therapy - social work consult as patient lives alone and may need placement - CT head as above for questionable NPH - neurology consulted - on Xanax, risperidone, and ambien, reconsider need for these medications as patient may be having falls due to these medications Throat Pain - flu swab - strep test - continue to monitor CKD - at baseline CRE - NS at 50cc/hr - avoid nephrotoxic agents - CK within normal limits, continue to monitor - urine lytes and CRE to calculate FeNA HTN - hold home lisinopril and patient in sepsis, can resume when clinically appropriate COPD - on Spiriva and prednisone confirmed through pharmacy Hx of Stents - continue aspirin and Plavix DVT PPx - heparin 5000 units subq tid FEN - NS at 50cc/hr, monitor fluid status carefully in setting of grade 1 diastolic heart dysfunction - continue to monitor electrolytes and replete as necessary - sodium/fat controlled controlled diet Dispo - admit to Med-surg - Medications confirmed through pharmacy Visit type - Emergency Visit Emergency Visit: Yes ED Registration Date: 06/12/19 Care time: The patient presented to the Emergency Department on the above date and was hospitalized for further evaluation of their emergent condition. - New Patient This patient is new to me today: Yes Date on this admission: 06/13/19 - Critical Care Critical Care patient: No
[2019-06-13] MEDS ORDERED: SODIUM CHLORIDE 1,000 ML IV SCH (04:00)
[2019-06-13 08:29] LABS: POTASSIUM 4.7 mmol/L (3.5-5.1)
--- NOTE | 2019-06-13 09:38 | PN ---
Progress Note, Physician Chief Complaint: Patient feels comfortable not in acute distress History of Present Illness: 4 year old man with a PMH of HTN, HLD, CAD, [place] s/p stents, COPD, HFpEF, AAA repair with stent, Chronic hyponatremia, Paranoid schizophrenia, Tardive dyskinesia, Dementia, and Anxiety/depression who presents after he was found on the floor at home after sliding out of bed. - Current Medication List Current Medications: Active Medications Alprazolam (Xanax -) 0.5 mg PO DAILY [facility] Aspirin (Asa -) 81 mg PO DAILY [facility] Clopidogrel Bisulfate (Plavix -) 75 mg PO DAILY [facility] Heparin Sodium (Porcine) (Heparin -) 5,000 unit SQ TID [facility] Ceftriaxone Sodium 1 gm/ (Dextrose) 50 mls @ 100 mls/hr IVPB DAILY [facility]; Protocol Sodium Chloride (Normal Saline -) 1,000 mls @ 50 mls/hr IV ASDIR [facility] Stop: 06/14/19 03:58 Last Admin: 06/13/19 04:55 Dose: 50 mls/hr Lisinopril (Prinivil) 10 mg PO DAILY [facility] Prednisone (Deltasone -) 10 mg PO BID [facility] Risperidone (Risperdal -) 2 mg PO BID [facility] Rosuvastatin Calcium (Crestor -) 10 mg PO HS [facility] Tamsulosin HCl (Flomax -) 0.4 mg PO DAILY@0830 [facility] Tiotropium [place] (Spiriva Respimat) 2 puff IH DAILY [facility] Zolpidem Tartrate (Ambien -) 10 mg PO HS PRN PRN Reason: INSOMNIA - Objective Vital Signs: Vital Signs Temperature 98.1 F 06/13/19 02:58 Pulse Rate 78 06/13/19 02:58 Respiratory Rate 18 06/13/19 02:58 Blood Pressure 126/73 06/13/19 02:58 O2 Sat by Pulse Oximetry (%) 94 L 06/13/19 02:58 General: Elderly man comfortable, not in distress HEENT; dyskinesia mucous membranes moist, no anemia, no jaundice, PERRLA, no nystagmus Neck: No JVD, supple, no bruit, thyroid palpably normal, normal carotid pulsations. Chest: Nontender, clear to auscultation bilaterally/bilateral wheezing/ bilateral basal rales. CVS: S1-S2 regular/irregular no murmur/gallop/rub Abdomen: Nondistended, soft, bowel sounds present. 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 Problems reviewed: Yes Code(s): N39.0 - URINARY TRACT INFECTION, SITE NOT SPECIFIED (2) COPD (chronic obstructive pulmonary disease) Assessment/Plan: Present patient is stable continue all home medications Problems reviewed: Yes Code(s): J44.9 - CHRONIC OBSTRUCTIVE PULMONARY DISEASE, UNSPECIFIED (3) S/P AAA repair Assessment/Plan: Continue Flomax Problems reviewed: Yes Code(s): Z98.890 - OTHER SPECIFIED POSTPROCEDURAL STATES; Z86.79 - PERSONAL HISTORY OF OTHER DISEASES OF THE CIRCULATORY SYSTEM (4) Hypertension Assessment/Plan: Continue home medication Problems reviewed: Yes Code(s): I10 - ESSENTIAL (PRIMARY) HYPERTENSION (5) Schizophrenia Assessment/Plan: Stable continue home meds Problems reviewed: Yes Code(s): F20.9 - SCHIZOPHRENIA, UNSPECIFIED
[2019-06-13] MEDS ORDERED: FENOFIBRATE 50 MG PO SCH (10:00)
[2019-06-13] MEDS ORDERED: TIOTROPIUM BROMIDE IH SCH (10:00)
[2019-06-13] MEDS ORDERED: ESCITALOPRAM OXALATE 20 MG TABLET PO SCH (10:00)
[2019-06-13] MEDS ORDERED: risperiDONE 0.25 MG TABLET PO SCH (10:00)
[2019-06-13] MEDS ORDERED: BUDESONIDE/FORMETEROL FUMARATE 160/4.5 mcg INHALER IH SCH (10:00)
[2019-06-13] MEDS ORDERED: PATIENT'S OWN MEDICATION (NON-FORMULARY) (Alprazolam [Xanax] 0.5 MG) PO SCH (10:00)
[2019-06-13] MEDS: TAMSULOSIN HCL 0.4 MG CAP PO SCH (11:12)
[2019-06-13] MEDS: ASPIRIN 81 MG CHEWABLE TABLETS PO SCH (11:13)
[2019-06-13] MEDS: predniSONE 10 MG TABLET (UD) PO SCH ×2 (11:13→21:52)
[2019-06-13] MEDS: CLOPIDOGREL BISULFATE 75 MG TABLET (FP) PO SCH (11:14)
[2019-06-13] MEDS: risperiDONE 1 MG TABLET PO SCH ×2 (11:14→21:53)
[2019-06-13] MEDS ORDERED: ALPRAZolam 0.25 MG TABLET ONE (11:18)
[2019-06-13] MEDS: ALPRAZolam 0.25 MG TABLET PO SCH (11:28)
[2019-06-13] MEDS: TIOTROPIUM BROMIDE 2.5 MCG (SPIRIVA) RESPIMAT INHALER IH SCH (11:51)
[2019-06-13] MEDS: CEFTRIAXONE 1 GM in DEXTROSE 5%-WATER - 50 ML IVPB SCH (11:51)
--- NOTE | 2019-06-13 12:41 | EKG ---
Test Reason : Blood Pressure : / mmHG Vent. Rate : 089 BPM Atrial Rate : 089 BPM P-R Int : 180 ms QRS Dur : 092 ms QT Int : 356 ms P-R-T Axes : 031 -27 052 degrees QTc Int : 433 ms SINUS RHYTHM WITH PREMATURE SUPRAVENTRICULAR COMPLEXES INFERIOR INFARCT (CITED ON OR BEFORE 21-AUG-2016) ANTEROLATERAL INFARCT , AGE UNDETERMINED ABNORMAL ECG WHEN COMPARED WITH ECG OF 22-APR-2019 17:32, PREMATURE SUPRAVENTRICULAR COMPLEXES ARE NOW PRESENT ANTERIOR INFARCT IS NOW PRESENT ANTEROLATERAL INFARCT IS NOW PRESENT NONSPECIFIC T WAVE ABNORMALITY NO LONGER EVIDENT IN INFERIOR LEADS Confirmed by MELY DELCID MD ([id number]) on 06/13/2019 12:40:41 PM Referred By: Confirmed By:MELY DELCID MD
[2019-06-13] MEDS: HEPARIN NA (PORCINE) 5,000 UNITS/ML 1ML VIAL SQ SCH ×3 (14:18→21:52)
[2019-06-13 15:42] VITALS: BMI 27.4
[2019-06-13] MEDS ORDERED: PT OWN MED DRAWER 7, Y5N ONE (21:48)
[2019-06-13] MEDS: ROSUVASTATIN CA 10 MG TABLET (FP) PO SCH (21:52)
[2019-06-13] MEDS ORDERED: PATIENT'S OWN MEDICATION (NON-FORMULARY) (Zolpidem Tartrate [Zolpidem Tartrate] 10 MG) PO SCH (22:00)
[2019-06-14] MEDS: HEPARIN NA (PORCINE) 5,000 UNITS/ML 1ML VIAL SQ SCH ×3 (06:12→23:12)
[2019-06-14] MEDS ORDERED: DEXTROSE 5%-WATER - 50 ML IVPB ONE (08:54)
[2019-06-14] MEDS ORDERED: cefTRIAXone SODIUM 1 GM VIAL ONE (08:54)
[2019-06-14 09:09] LABS: BASO % 0.2 % (0-2.0); EOS % 0.5 % (0-4.5); HEMATOCRIT 34.5 % (35.4-49); HEMOGLOBIN 11.9 GM/dL (11.7-16.9); LYMPH % 10.5 % (8-40); MCH 32.6 pg (25.7-33.7); MCHC 34.4 g/dl (32.0-35.9); MEAN CELL VOLUME 94.6 fl (80-96); MEAN PLT VOLUME 6.9 fl (7.5-11.1); NEUT % 81.8 % (42.8-82.8); PLATELET COUNT 320 K/MM3 (134-434); RBC 3.65 M/mm3 (4.00-5.60); RDW 12.7 % (11.9-15.9); WHITE BLOOD COUNT 10.3 K/mm3 (4.0-10.0)
[2019-06-14] MEDS: TAMSULOSIN HCL 0.4 MG CAP PO SCH (09:30)
[2019-06-14] MEDS: CEFTRIAXONE 1 GM in DEXTROSE 5%-WATER - 50 ML IVPB SCH (09:38)
[2019-06-14] MEDS: CLOPIDOGREL BISULFATE 75 MG TABLET (FP) PO SCH (09:39)
[2019-06-14] MEDS: ASPIRIN 81 MG CHEWABLE TABLETS PO SCH (09:39)
[2019-06-14] MEDS: risperiDONE 1 MG TABLET PO SCH ×2 (09:39→23:11)
[2019-06-14] MEDS: ALPRAZolam 0.25 MG TABLET PO SCH (09:39)
[2019-06-14] MEDS: predniSONE 10 MG TABLET (UD) PO SCH ×2 (09:39→23:10)
[2019-06-14 09:40] LABS: CALCIUM 8.6 mg/dL (8.5-10.1); CREATININE 1.3 mg/dL (0.55-1.3); MAGNESIUM 2.2 mg/dL (1.8-2.4); POTASSIUM 4.5 mmol/L (3.5-5.1)
[2019-06-14] MEDS: TIOTROPIUM BROMIDE 2.5 MCG (SPIRIVA) RESPIMAT INHALER IH SCH (09:40)
--- NOTE | 2019-06-14 10:10 | CON.NEURO ---
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) Cardio/Vascular: Yes: CAD, HTN, Hyperlipdemia, MA Pulmonary: Yes: COPD Gastrointestinal: Yes: Other (umbilical hernia) Psych: Yes: Anxiety, Depression - Past Surgical History Past Surgical History: Yes: Stent - Alcohol/Substance Use Hx Alcohol Use: No History of Substance Use: reports: None - Smoking History Smoking history: Never smoked Have you smoked in the past 12 months: No Aproximately how many cigarettes per day: 0 If you are a former smoker, when did you quit?: 2006 - Social History ADL: Independent 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 History of Recent Travel: No Home Medications - Allergies Allergies/Adverse Reactions: Allergies Allergy/AdvReac Type Severity Reaction Status Date / Time No Known Allergies Allergy Verified 06/12/19 19:46 - Home Medications Home Medications: Ambulatory Orders Lisinopril 10 mg PO DAILY 10/28/16 Clopidogrel Bisulfate [Plavix -] 75 mg PO DAILY 04/23/17 Tiotropium [place] [Spiriva] 2 inh IH DAILY #30 cap.w.dev 01/22/18 Aspirin [ASA -] 81 mg PO DAILY 01/28/19 Risperidone 2 mg PO BID 01/28/19 Alprazolam [Xanax] 0.5 mg PO DAILY 06/09/19 Rosuvastatin Calcium [Crestor] 10 mg PO DAILY 06/13/19 Tamsulosin HCl 0.4 mg PO DAILY 06/13/19 Zolpidem Tartrate 10 mg PO HS 06/13/19 predniSONE [Deltasone -] 10 mg PO BID 06/13/19 Physical Exam-Neuro Vital Signs: Vital Signs Temperature 97.9 F 06/14/19 08:49 Pulse Rate 64 06/14/19 08:49 Respiratory Rate 18 06/14/19 08:49 Blood Pressure 128/76 06/14/19 08:49 O2 Sat by Pulse Oximetry (%) 95 06/13/19 21:00 Labs: CBC, BMP 06/14/19 08:15 06/14/19 08:15 Assessment/Plan cc fall HPI 74 year old male history of HTN,HLD,CAD s/p [place] s/p setents, copd, diastolic chf, aaa repair. Patient lives alone and take care of himself. He is no risperidone , xanax and ambien.Patient has history of parnoid schizophrenia and tardive dyskinesia. Patient has fall and unable to lift himself fo rfive hours. 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 Allergies No Known Allergies Allergy (Verified 06/12/19 19:46) Verified HOME MEDICATIONS: Home Medications Medication Instructions Recorded Lisinopril 10 mg PO DAILY 10/28/16 Clopidogrel Bisulfate [Plavix -] 75 mg PO DAILY 04/23/17 Tiotropium [place] [Spiriva] 2 inh IH DAILY #30 cap.w.dev 01/22/18 Aspirin [ASA -] 81 mg PO DAILY 01/28/19 Risperidone 2 mg PO BID 01/28/19 Alprazolam [Xanax] 0.5 mg PO DAILY 06/09/19 Rosuvastatin Calcium [Crestor] 10 mg PO DAILY 06/13/19 Tamsulosin HCl 0.4 mg PO DAILY 06/13/19 Zolpidem Tartrate 10 mg PO HS 06/13/19 predniSONE [Deltasone -] 10 mg PO BID 06/13/19 ROS,FH,SH reviewed in chart NEUROLOGICAL EXAMINATION Alert oriented x 3 , neck is supple vss afebrile eomi, pupils reactive on face asymmetry moving all extrey there is cheli-buccal dyskinesia ct head showed cortical atrophy and large ventricles Assessment/Plan 1. Fall seems to be mechanical, there is no evidence of vertigo , cord compression or cerebellar stroke 2. Large ventricles secondary to cortical atrophy, no further work up necessary , unlikley to be NPH Plan: COntinue supprotive care - dyskinesia are not bed, there is no need for artane at this time, psychiatrist managing medication. PT and placement Thanking you so much Ron Pride MD
--- NOTE | 2019-06-14 13:31 | PN ---
Progress Note, Physician Chief Complaint: Patient feels comfortable not in acute distress History of Present Illness: 4 year old man with a PMH of HTN, HLD, CAD, [place] s/p stents, COPD, HFpEF, AAA repair with stent, Chronic hyponatremia, Paranoid schizophrenia, Tardive dyskinesia, Dementia, and Anxiety/depression who presents after he was found on the floor at home after sliding out of bed. Patient remained hemodynamically stable and asymptomatic. Urine culture grew lactose travel med surg rn GNB. - Current Medication List Current Medications: Active Medications Alprazolam (Xanax -) 0.5 mg PO DAILY [facility] Last Admin: 06/14/19 09:39 Dose: 0.5 mg Aspirin (Asa -) 81 mg PO DAILY [facility] Last Admin: 06/14/19 09:39 Dose: 81 mg Clopidogrel Bisulfate (Plavix -) 75 mg PO DAILY [facility] Last Admin: 06/14/19 09:39 Dose: 75 mg Heparin Sodium (Porcine) (Heparin -) 5,000 unit SQ TID [facility] Last Admin: 06/14/19 06:12 Dose: 5,000 unit Ceftriaxone Sodium 1 gm/ (Dextrose) 50 mls @ 100 mls/hr IVPB DAILY [facility]; Protocol Last Admin: 06/14/19 09:38 Dose: 100 mls/hr Lisinopril (Prinivil) 10 mg PO DAILY [facility] Prednisone (Deltasone -) 10 mg PO BID [facility] Last Admin: 06/14/19 09:39 Dose: 10 mg Risperidone (Risperdal -) 2 mg PO BID [facility] Last Admin: 06/14/19 09:39 Dose: 2 mg Rosuvastatin Calcium (Crestor -) 10 mg PO HS [facility] Last Admin: 06/13/19 21:52 Dose: 10 mg Tamsulosin HCl (Flomax -) 0.4 mg PO DAILY@0830 [facility] Last Admin: 06/14/19 09:30 Dose: 0.4 mg Tiotropium [place] (Spiriva Respimat) 2 puff IH DAILY [facility] Last Admin: 06/14/19 09:40 Dose: 2 puff Zolpidem Tartrate (Ambien -) 10 mg PO HS PRN PRN Reason: INSOMNIA - Objective Vital Signs: Vital Signs Temperature 97.9 F 06/14/19 08:49 Pulse Rate 64 06/14/19 08:49 Respiratory Rate 18 06/14/19 08:49 Blood Pressure 128/76 06/14/19 08:49 O2 Sat by Pulse Oximetry (%) 95 06/13/19 21:00 General: Elderly man comfortable, not in distress HEENT; dyskinesia mucous membranes moist, no anemia, no jaundice, PERRLA, no nystagmus Neck: No JVD, supple, no bruit, thyroid palpably normal, normal carotid pulsations. Chest: Nontender, clear to auscultation bilaterally/bilateral wheezing/ bilateral basal rales. CVS: S1-S2 regular/irregular no murmur/gallop/rub Abdomen: Nondistended, soft, bowel sounds present. 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 Problem List - Problems (1) UTI (urinary tract infection) Assessment/Plan: Continue ceftriaxone follow-up culture. Prelim urine culture grew lactose travel med surg rn GNB follow-up sensitivity. Code(s): N39.0 - URINARY TRACT INFECTION, SITE NOT SPECIFIED (2) COPD (chronic obstructive pulmonary disease) Assessment/Plan: Present patient is stable, no continued shortness of breath continue all home medications Code(s): J44.9 - CHRONIC OBSTRUCTIVE PULMONARY DISEASE, UNSPECIFIED (3) S/P AAA repair Assessment/Plan: Continue antiplatelet therapy and statin, blood pressure is at target Code(s): Z98.890 - OTHER SPECIFIED POSTPROCEDURAL STATES; Z86.79 - PERSONAL HISTORY OF OTHER DISEASES OF THE CIRCULATORY SYSTEM (4) Hypertension Assessment/Plan: Continue home medication Code(s): I10 - ESSENTIAL (PRIMARY) HYPERTENSION (5) Schizophrenia Assessment/Plan: Stable continue home meds Code(s): F20.9 - SCHIZOPHRENIA, UNSPECIFIED
[2019-06-14] MEDS: SODIUM CHLORIDE 1,000 ML IV SCH (19:42)
[2019-06-14] MEDS: ROSUVASTATIN CA 10 MG TABLET (FP) PO SCH (23:10)
[2019-06-15] MEDS: HEPARIN NA (PORCINE) 5,000 UNITS/ML 1ML VIAL SQ SCH ×3 (06:22→21:15)
[2019-06-15] MEDS ORDERED: cefTRIAXone SODIUM 1 GM VIAL ONE (09:13)
[2019-06-15] MEDS ORDERED: DEXTROSE 5%-WATER - 50 ML IVPB ONE (09:13)
[2019-06-15 09:15] LABS: BASO % 0.1 % (0-2.0); EOS % 0.7 % (0-4.5); HEMATOCRIT 35.2 % (35.4-49); HEMOGLOBIN 12.2 GM/dL (11.7-16.9); LYMPH % 13.4 % (8-40); MCH 32.9 pg (25.7-33.7); MCHC 34.5 g/dl (32.0-35.9); MEAN CELL VOLUME 95.4 fl (80-96); MEAN PLT VOLUME 7.1 fl (7.5-11.1); MONO % 5.7 % (3.8-10.2); NEUT % 80.1 % (42.8-82.8); PLATELET COUNT 355 K/MM3 (134-434); RDW 12.8 % (11.9-15.9); WHITE BLOOD COUNT 9.2 K/mm3 (4.0-10.0)
[2019-06-15] MEDS: CEFTRIAXONE 1 GM in DEXTROSE 5%-WATER - 50 ML IVPB SCH (09:28)
[2019-06-15] MEDS: ALPRAZolam 0.25 MG TABLET PO SCH (09:29)
[2019-06-15] MEDS: ASPIRIN 81 MG CHEWABLE TABLETS PO SCH (09:29)
[2019-06-15] MEDS: risperiDONE 1 MG TABLET PO SCH ×2 (09:29→21:14)
[2019-06-15] MEDS: predniSONE 10 MG TABLET (UD) PO SCH ×2 (09:29→21:14)
[2019-06-15] MEDS: TAMSULOSIN HCL 0.4 MG CAP PO SCH (09:29)
[2019-06-15] MEDS: CLOPIDOGREL BISULFATE 75 MG TABLET (FP) PO SCH (09:30)
[2019-06-15] MEDS: LISINOPRIL 10 MG TABLET (FP) PO SCH (09:30)
[2019-06-15] MEDS: TIOTROPIUM BROMIDE 2.5 MCG (SPIRIVA) RESPIMAT INHALER IH SCH (09:34)
[2019-06-15 09:55] LABS: BLOOD UREA NITROGEN 30.2 mg/dL (7-18); CALCIUM 9.1 mg/dL (8.5-10.1); CREATININE 1.3 mg/dL (0.55-1.3); POTASSIUM 4.8 mmol/L (3.5-5.1)
--- NOTE | 2019-06-15 12:16 | PN ---
Progress Note (short form) - Note Progress Note: Patient feels better denies any nausea vomiting. He is having difficulty sleeping at nighttime he wants Ambien. No other symptom he is taking IV antibiotics. Vital Signs Period Temp Pulse Resp BP Sys/Gonzales Pulse Ox Last 24 Hr 97.4 F-98.8 F 61-92 18-18 122-142/59-78 97 Head no headache no dizziness Ear nose throat no epistaxis Cardiovascular no chest pain Pulmonary no wheezing no coughing GI no abdominal pain Endocrine no history of diabetes hypothyroidism Neuro no history of stroke Dermatology no history of stroke Locomotor no history of joint pain Rest of review of systems are negative Physical examination Patient is comfortable HEENT normal Neck supple no JVD Lungs clear no wheezing Abdomen nontender no organomegaly bowel sounds normal Extremities no edema no cyanosis normal pulses Neurologically he is alert awake oriented, nonfocal Skin no rash noted CBC, BMP 06/15/19 08:40 06/15/19 08:40 Laboratory Results - last 24 hr 06/15/19 06/15/19 08:40 08:40 WBC 9.2 RBC 3.70 L Hgb 12.2 Hct 35.2 L MCV 95.4 MCH 32.9 MCHC 34.5 RDW 12.8 Plt Count 355 MPV 7.1 L Absolute Neuts (auto) 7.4 Neutrophils % 80.1 Lymphocytes % 13.4 D Monocytes % 5.7 Eosinophils % 0.7 Basophils % 0.1 Nucleated RBC % 0 Sodium 138 Potassium 4.8 Chloride 106 Carbon Dioxide 27 Anion Gap 5 L BUN 30.2 H Creatinine 1.3 Est GFR (CKD-EPI)AfAm 61.86 Est GFR (CKD-EPI)NonAf 53.37 Random Glucose 110 H Calcium 9.1 Assessment and plan Urinary tract infection Patient has grown E. coli sensitivities still pending continue ceftriaxone COPD stable no distress at this time continue his medication Hypertension stable continue medication Schizophrenia stable continue home medications Insomnia Ambien 10 mg at bedtime PRN Will see and follow-up on seventh review report on E. coli depends on that we will change the antibiotic if necessary until then continue ceftriaxone. Visit type - Emergency Visit Emergency Visit: Yes ED Registration Date: 06/12/19 Care time: The patient presented to the Emergency Department on the above date and was hospitalized for further evaluation of their emergent condition. - New Patient This patient is new to me today: Yes Date on this admission: 06/15/19 - Critical Care Critical Care patient: No - Discharge Referral Referred to [facility] Med P.C[facility] No
[2019-06-15] MEDS ORDERED: PT OWN MED DRAWER 7, Y5N ONE (21:01)
[2019-06-15] MEDS: SODIUM CHLORIDE 1,000 ML IV SCH (21:13)
[2019-06-15] MEDS: ZOLPIDEM TARTRATE 5 MG TABLET PO PRN (21:14)
[2019-06-15] MEDS: ROSUVASTATIN CA 10 MG TABLET (FP) PO SCH (21:14)
[2019-06-16] MEDS: SODIUM CHLORIDE 1,000 ML IV SCH ×2 (01:35→22:56)
[2019-06-16] MEDS: HEPARIN NA (PORCINE) 5,000 UNITS/ML 1ML VIAL SQ SCH ×3 (06:11→22:57)
[2019-06-16] MEDS ORDERED: DEXTROSE 5%-WATER - 50 ML IVPB ONE (09:19)
[2019-06-16] MEDS ORDERED: cefTRIAXone SODIUM 1 GM VIAL ONE (09:19)
[2019-06-16] MEDS: ASPIRIN 81 MG CHEWABLE TABLETS PO SCH (09:24)
[2019-06-16] MEDS: ALPRAZolam 0.25 MG TABLET PO SCH (09:24)
[2019-06-16] MEDS: LISINOPRIL 10 MG TABLET (FP) PO SCH (09:24)
[2019-06-16] MEDS: predniSONE 10 MG TABLET (UD) PO SCH ×2 (09:24→22:56)
[2019-06-16] MEDS: CLOPIDOGREL BISULFATE 75 MG TABLET (FP) PO SCH (09:24)
[2019-06-16] MEDS: CEFTRIAXONE 1 GM in DEXTROSE 5%-WATER - 50 ML IVPB SCH (09:24)
[2019-06-16] MEDS: TAMSULOSIN HCL 0.4 MG CAP PO SCH (09:24)
[2019-06-16] MEDS: TIOTROPIUM BROMIDE 2.5 MCG (SPIRIVA) RESPIMAT INHALER IH SCH (09:25)
[2019-06-16] MEDS: risperiDONE 1 MG TABLET PO SCH ×2 (09:48→22:57)
--- NOTE | 2019-06-16 11:04 | PN ---
Progress Note (short form) - Note Progress Note: Patient feels better denies any nausea vomiting. He is having difficulty sleeping at nighttime he wants Ambien. No other symptom he is taking IV antibiotics. He has no new symptoms Head no headache no dizziness Ear nose throat no epistaxis Cardiovascular no chest pain Pulmonary no wheezing no coughing GI no abdominal pain Endocrine no history of diabetes hypothyroidism Neuro no hi Vital Signs Period Temp Pulse Resp BP Sys/Gonzales Pulse Ox Last 24 Hr 97.5 F-98.7 F 59-74 18-20 106-133/56-81 97 story of stroke Dermatology no history of stroke Locomotor no history of joint pain Rest of review of systems are negative Physical examination Patient is comfortable HEENT normal Neck supple no JVD Lungs clear no wheezing Abdomen nontender no organomegaly bowel sounds normal Extremities no edema no cyanosis normal pulses Neurologically he is alert awake oriented, nonfocal Skin no rash noted Laboratory Results - last 24 hr 06/15/19 06/15/19 CBC, BMP 06/15/19 08:40 06/15/19 08:40 08:40 08:40 WBC 9.2 RBC 3.70 L Hgb 12.2 Hct 35.2 L MCV 95.4 MCH 32.9 MCHC 34.5 RDW 12.8 Plt Count 355 MPV 7.1 L Absolute Neuts (auto) 7.4 Neutrophils % 80.1 Lymphocytes % 13.4 D Monocytes % 5.7 Eosinophils % 0.7 Basophils % 0.1 Nucleated RBC % 0 Sodium 138 Potassium 4.8 Chloride 106 Carbon Dioxide 27 Anion Gap 5 L BUN 30.2 H Creatinine 1.3 Est GFR (CKD-EPI)AfAm 61.86 Est GFR (CKD-EPI)NonAf 53.37 Random Glucose 110 H Calcium 9.1 Assessment and plan Urinary tract infection Patient has grown E. coli culture sensitivity shows he is sensitive to almost every antibiotics. He is afebrile now we will stop his IV ceftriaxone start him on Ceftin twice a day discussed with the patient about discharge he said he cannot go home today tomorrow will do discharge. He will give a call to his family. COPD stable no distress at this time continue his medication Hypertension stable continue medication Schizophrenia stable continue home medications Insomnia Ambien 10 mg at bedtime PRN Visit type - Emergency Visit Emergency Visit: Yes ED Registration Date: 06/12/19 Care time: The patient presented to the Emergency Department on the above date and was hospitalized for further evaluation of their emergent condition. - New Patient This patient is new to me today: No - Critical Care Critical Care patient: No - Discharge Referral Referred to [facility] Med P.C.: No
[2019-06-16] MEDS: CEFUROXIME AXETIL 500 MG TABLET PO SCH (22:56)
[2019-06-16] MEDS: ROSUVASTATIN CA 10 MG TABLET (FP) PO SCH (22:56)
[2019-06-16] MEDS: ZOLPIDEM TARTRATE 5 MG TABLET PO PRN (22:57)
[2019-06-17] MEDS: SODIUM CHLORIDE 1,000 ML IV SCH ×2 (06:57→15:37)
[2019-06-17] MEDS: HEPARIN NA (PORCINE) 5,000 UNITS/ML 1ML VIAL SQ SCH ×2 (06:57→15:02)
[2019-06-17] MEDS ORDERED: PT OWN MED DRAWER 7, Y5N ONE (09:35)
[2019-06-17] MEDS: ALPRAZolam 0.25 MG TABLET PO SCH (09:45)
[2019-06-17] MEDS: ASPIRIN 81 MG CHEWABLE TABLETS PO SCH (09:45)
[2019-06-17] MEDS: predniSONE 10 MG TABLET (UD) PO SCH (09:46)
[2019-06-17] MEDS: LISINOPRIL 10 MG TABLET (FP) PO SCH (09:46)
[2019-06-17] MEDS: TAMSULOSIN HCL 0.4 MG CAP PO SCH (09:46)
[2019-06-17] MEDS: CEFUROXIME AXETIL 500 MG TABLET PO SCH (09:46)
[2019-06-17] MEDS: risperiDONE 1 MG TABLET PO SCH (09:46)
[2019-06-17] MEDS: CLOPIDOGREL BISULFATE 75 MG TABLET (FP) PO SCH (09:46)
[2019-06-17] MEDS: TIOTROPIUM BROMIDE 2.5 MCG (SPIRIVA) RESPIMAT INHALER IH SCH (09:47)
--- NOTE | 2019-06-17 13:42 | DS ---
Physical Exam: SUBJECTIVE: Patient seen and examined. Offers no new complaints. No events overnight. OBJECTIVE: Vital Signs Period Temp Pulse Resp BP Sys/Gonzales Pulse Ox Last 24 Hr 97.5 F-98.4 F 62-72 20-62 115-138/54-70 95-96 PHYSICAL EXAM GENERAL: a/o x 3, comfortable. HEAD: Normal with no signs of trauma. EYES: PERRL, conjunctiva clear. ENT: oropharynx clear without exudates, moist mucous membranes. NECK: supple. LUNGS: cta b/l HEART: RRR, no mgr ABDOMEN: Soft, nontender, nondistended, normoactive bowel sounds EXTREMITIES: 2+ pulses, warm, well-perfused, no edema. HOSPITAL COURSE: Date of Admission:06/12/19 74 year old man with a PMH of HTN, HLD, CAD, [place] s/p stents, COPD, HFpEF, AAA repair with stent, Chronic hyponatremia, Paranoid schizophrenia, Tardive dyskinesia, Dementia, and Anxiety/depression who presents after he was found on the floor at home after sliding out of bed. Patient remained hemodynamically stable and asymptomatic. 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 #Urinary tract infection Patient has grown E. coli culture sensitivity shows he is sensitive to almost every antibiotics. discharge on PO abx: Ceftin for 2 more days. (total 7 days) #COPD -stable -cont home meds #Hypertension -cont home meds #Schizophrenia -cnt home meds Date of Discharge: 06/17/19 Minutes to complete discharge: 35 Discharge Summary Problems reviewed: Yes Reason For Visit: URINARY TRACT INFECTION Current Active Problems COPD (chronic obstructive pulmonary disease) (Acute) Fall (Acute) Schizophrenia (Acute) UTI (urinary tract infection) (Acute) Condition: Stable - Instructions Diet, Activity, Other Instructions: You were admitted because we were treating you for a urinary tract infection. You will be discharged on antibiotics. Please take your antibiotics twice a day for 2 more days. Complete on 06/19 We have made no changes to your home medications. Follow up with your primary care doctor in 1 week. Disposition: [facility] - Home Medications Comprehensive Discharge Medication List: Ambulatory Orders Lisinopril 10 mg PO DAILY 10/28/16 Clopidogrel Bisulfate [Plavix -] 75 mg PO DAILY 04/23/17 Tiotropium [place] [Spiriva] 2 inh IH DAILY #30 cap.w.dev 01/22/18 Aspirin [ASA -] 81 mg PO DAILY 01/28/19 Risperidone 2 mg PO BID 01/28/19 Alprazolam [Xanax] 0.5 mg PO DAILY 06/09/19 Rosuvastatin Calcium [Crestor] 10 mg PO DAILY 06/13/19 Tamsulosin HCl 0.4 mg PO DAILY 06/13/19 Zolpidem Tartrate 10 mg PO HS 06/13/19 predniSONE [Deltasone -] 10 mg PO BID 06/13/19 Cefuroxime Axetil [Ceftin -] 500 mg PO BID #5 tablet 06/17/19 This patient is new to me today: Yes Date on this admission: 06/17/19 Emergency Visit: Yes ED Registration Date: 06/12/19 Care time: The patient presented to the Emergency Department on the above date and was hospitalized for further evaluation of their emergent condition. Critical Care patient: No - Discharge Referral Referred to [facility] Med P.C.: No ATTENDING PHYSICIAN STATEMENT I saw and evaluated the patient. I reviewed the resident's note and discussed the case with the resident. I agree with the resident's findings and plan as documented. SUBJECTIVE: OBJECTIVE: ASSESSMENT AND PLAN:
--- NOTE | 2019-06-17 17:20 | PN ---
Teaching Attending Note Name of Resident: Ina Huerta ATTENDING PHYSICIAN STATEMENT I saw and evaluated the patient. I reviewed the resident's note and discussed the case with the resident. I agree with the resident's findings and plan as documented. 74 year old man with a PMH of HTN, HLD, CAD, [place] s/p stents, COPD, HFpEF, AAA repair with stent, Chronic hyponatremia, Paranoid schizophrenia, Tardive dyskinesia, Dementia, and Anxiety/depression who presents after he was found on the floor at home after sliding out of bed. Treated for UTi, currently afebrile , tolerating PO, denying complaints, needs [facility] for PT. Feels well today in good spirits, patient scheduled for DC today to SNF. GENERAL: a/o x 3, comfortable, lying in bed, NAD HEAD: Normal with no signs of trauma. EYES: PERRL, conjunctiva clear. ENT: oropharynx clear without exudates, moist mucous membranes. NECK: supple. LUNGS: cta b/l HEART: RRR, no mgr ABDOMEN: Soft, nontender, nondistended, normoactive bowel sounds EXTREMITIES: 2+ pulses, warm, well-perfused, no edema Vital Signs - 24 hr 06/16/19 06/16/19 06/17/19 21:00 22:00 06:00 Temperature 98.3 F 97.5 F L Pulse Rate 63 66 Respiratory 20 20 Rate Blood Pressure 123/54 L 138/64 O2 Sat by Pulse 95 Oximetry (%) 06/17/19 06/17/19 06/17/19 08:14 11:00 15:00 Temperature 97.5 F L 98.9 F Pulse Rate 62 72 Respiratory 20 20 Rate Blood Pressure 115/58 L 116/61 O2 Sat by Pulse 96 Oximetry (%) Microbiology 06/13/19 02:11 Blood - Peripheral Venous Blood Culture - Preliminary NO GROWTH OBTAINED AFTER 96 HOURS, INCUBATION TO CONTINUE FOR 1 DAYS. 06/13/19 01:35 Blood - Peripheral Venous Blood Culture - Preliminary NO GROWTH OBTAINED AFTER 96 HOURS, INCUBATION TO CONTINUE FOR 1 DAYS. 06/12/19 20:41 Urine - Urine - Catheterized Urine Culture - Final Escherichia Coli 06/13/19 05:32 Throat Throat Culture - Final NO BETA HEMOLYTIC STREPTOCOCCI ISOLATED Home Medications Medication Instructions Recorded Lisinopril 10 mg PO DAILY 10/28/16 Clopidogrel Bisulfate [Plavix -] 75 mg PO DAILY 04/23/17 Tiotropium [place] [Spiriva] 2 inh IH DAILY #30 cap.w.dev 01/22/18 Aspirin [ASA -] 81 mg PO DAILY 01/28/19 Risperidone 2 mg PO BID 01/28/19 Rosuvastatin Calcium [Crestor] 10 mg PO DAILY 06/13/19 Tamsulosin HCl 0.4 mg PO DAILY 06/13/19 Zolpidem Tartrate 10 mg PO HS 06/13/19 predniSONE [Deltasone -] 10 mg PO BID 06/13/19 Alprazolam 1 mg PO BID 06/17/19 Bupropion HCl [Wellbutrin Xl] 1 tab PO DAILY 06/17/19 Cefuroxime Axetil [Ceftin -] 500 mg PO BID #5 tablet 06/17/19 Current Medications Generic Name Dose Route Start Last Admin Trade Name Freq PRN Reason Stop Dose Admin Alprazolam 1 mg 06/17/19 22:00 Xanax - PO BID FIDEL Aspirin 81 mg 06/13/19 10:00 06/17/19 09:45 Asa - PO 81 mg DAILY FIDEL Administration Bupropion HCl 300 mg 06/17/19 16:30 06/17/19 16:41 Wellbutrin Xl - PO 300 mg DAILY FIDEL Administration Cefuroxime Axetil 500 mg 06/16/19 22:00 06/17/19 09:46 Ceftin - PO 500 mg BID FIDEL Administration Clopidogrel Bisulfate 75 mg 06/13/19 10:00 06/17/19 09:46 Plavix - PO 75 mg DAILY FIDEL Administration Heparin Sodium (Porcine) 5,000 unit 06/13/19 06:00 06/17/19 15:02 Heparin - SQ 5,000 unit TID FIDEL Administration Sodium Chloride 1,000 mls @ 75 mls/hr 06/14/19 14:30 06/17/19 15:37 Normal Saline - IV Not Given ASDIR FIDEL Lisinopril 10 mg 06/13/19 10:00 06/17/19 09:46 Prinivil PO 10 mg DAILY FIDEL Administration Prednisone 10 mg 06/13/19 10:00 06/17/19 09:46 Deltasone - PO 10 mg BID FIDEL Administration Risperidone 2 mg 06/13/19 10:00 06/17/19 09:46 Risperdal - PO 2 mg BID FIDEL Administration Rosuvastatin Calcium 10 mg 06/13/19 22:00 06/16/19 22:56 Crestor - PO 10 mg HS FIDEL Administration Tamsulosin HCl 0.4 mg 06/13/19 08:30 06/17/19 09:46 Flomax - PO 0.4 mg DAILY@0830 FIDEL Administration Tiotropium [place] 2 puff 06/13/19 10:00 06/17/19 09:47 Spiriva Respimat IH 2 puff DAILY FIDEL Administration Zolpidem Tartrate 10 mg 06/13/19 22:00 06/16/19 22:57 Ambien - PO 10 mg HS PRN Administration INSOMNIA A/P: 74 year old man with a PMH of HTN, HLD, CAD, [place] s/p stents, COPD, HFpEF, AAA repair with stent, Chronic hyponatremia, Paranoid schizophrenia, Tardive dyskinesia, Dementia, and Anxiety/depression admitted for fall. Treated for UTI , now improved, dispo to SNF for PT. UTI Patient has grown E. coli culture sensitivity shows he is sensitive to almost every antibiotics. discharge on PO abx: Ceftin for 2 more days. (total 7 days) asymptomatic currently, afebrile VSS COPD stable resume home medications HTN controlled cont. home BP meds Schizophrenia normal mood and affect continue home psych meds Discharge to SNF/[facility] Resume home medications Follow with PCP after DC from SNF
[2019-06-17 19:48] VITALS: BP 130/65; PULSE 68; TEMP 98.4
[2019-06-17] MEDS ORDERED: ALPRAZolam 0.25 MG TABLET PO ONE (21:03)
[2019-06-17] MEDS ORDERED: HALOPERIDOL LACTATE 5 MG/ML IM ONE (21:24)
[2019-06-17] MEDS ORDERED: ALPRAZolam 0.25 MG TABLET PO SCH (22:00)
[2019-06-18] MEDS: HEPARIN NA (PORCINE) 5,000 UNITS/ML 1ML VIAL SQ SCH (00:05)
[2019-06-18] MEDS: CEFUROXIME AXETIL 500 MG TABLET PO SCH (00:05)
[2019-06-18] MEDS: predniSONE 10 MG TABLET (UD) PO SCH (00:05)
[2019-06-18] MEDS: ROSUVASTATIN CA 10 MG TABLET (FP) PO SCH (00:05)
[2019-06-18] MEDS: risperiDONE 1 MG TABLET PO SCH (00:06)
== END 2019-06-17 11:00 | DRG 690 ==
LOC: JER 17:08 → JERBED 22:47 → J5S 06-13 15:56
PROVIDERS: ADMIT Internal Medicine; ATTEND Internal Medicine
DX: N39.0 Urinary tract infection, site not specified (principal); I50.30 Unspecified diastolic (congestive) heart failure; N17.9 Acute kidney failure, unspecified; I11.0 Hypertensive heart disease with heart failure; I25.10 Atherosclerotic heart disease of native coronary artery without angina pectoris; E78.5 Hyperlipidemia, unspecified; J44.9 Chronic obstructive pulmonary disease, unspecified; F20.9 Schizophrenia, unspecified; G24.01 Drug induced subacute dyskinesia; Z95.5 Presence of coronary angioplasty implant and graft; B96.20 Unspecified Escherichia coli [E. coli] as the cause of diseases classified elsewhere; G47.00 Insomnia, unspecified; F41.8 Other specified anxiety disorders; F03.90 Unspecified dementia, unspecified severity, without behavioral disturbance, psychotic disturbance, mood disturbance, and anxiety
CPT/HCPCS: 36415; 70450-TC; 71045-TC-FY; 72125-TC; 74176-TC; 80048; 80051; 80053; 81003; 82436; 82550; 82553; 82565; 83735; 84133; 84300; 84484; 85025; 87040; 87070; 87086; 87186; 87804; 87880; 93005; 93010; 97116-GP; 97161-GP; 99281-25; 99285-25; J1644; J2794; J7030

== ENCOUNTER 2019-06-18 01:57 | Observation (INO) | payer OTHER, BC ==
[2019-06-18 02:42] VITALS: BMI 27.3
--- NOTE | 2019-06-18 03:33 | PDOC ---
History of Present Illness - General Chief Complaint: Chest Pain Stated Complaint: Chest pain Time Seen by Provider: 06/18/19 03:07 - History of Present Illness Initial Comments: 06/18/19 03:40 HPI obtained from patient interview @ bedside and EMR The patient is a 74 y/o male with PMHx of HTN, HLD, CAD s/p [place] s/p stents 2005 , 2016, COPD, diastolic HF, AAA repair with stent, chronic hyponatremia, paranoid schizophrenia x 40 years, tardive dyskinesia, and anxiety/depression who presents with acute onset of chest pain 1-2 hours prior to presentation. Pain is L sided sharp w/associated shortness of breath. No N/V, palpitations, lightheadedness. Pain resolved while sleeping in the ED. Past History - Past Medical History Allergies/Adverse Reactions: Allergies Allergy/AdvReac Type Severity Reaction Status Date / Time No Known Allergies Allergy Verified 06/18/19 02:42 Home Medications: Ambulatory Orders Lisinopril 10 mg PO DAILY 10/28/16 Clopidogrel Bisulfate [Plavix -] 75 mg PO DAILY 04/23/17 Tiotropium [place] [Spiriva] 2 inh IH DAILY #30 cap.w.dev 01/22/18 Aspirin [ASA -] 81 mg PO DAILY 01/28/19 Risperidone 2 mg PO BID 01/28/19 Rosuvastatin Calcium [Crestor] 10 mg PO DAILY 06/13/19 Tamsulosin HCl 0.4 mg PO DAILY 06/13/19 Zolpidem Tartrate 10 mg PO HS 06/13/19 predniSONE [Deltasone -] 10 mg PO BID 06/13/19 Alprazolam 1 mg PO BID 06/17/19 Bupropion HCl [Wellbutrin Xl] 1 tab PO DAILY 06/17/19 Cefuroxime Axetil [Ceftin -] 500 mg PO BID #5 tablet 06/17/19 Anemia: No Asthma: No Cancer: No Cardiac Disorders: Yes (cardiac [id number], history of UT 2005) CVA: No COPD: Yes CHF: No DVT: No Dementia: (FORGETFUL) Diabetes: No GI Disorders: Yes (HEARTBURN) Disorders: No HTN: Yes Hypercholesterolemia: Yes Liver Disease: No Psychiatric Problems: Yes Seizures: No Thyroid Disease: No - Surgical History Abdominal Surgery: Yes (AAA 02/03/2017) Appendectomy: No Cardiac Surgery: Yes (cardiac stent 2005 & 04/2017) Cholecystectomy: No Lung Surgery: No Neurologic Surgery: No Orthopedic Surgery: No - Psycho Social/Smoking Cessation Hx Smoking Status: No Smoking History: Never smoked Have you smoked in the past 12 months: No Number of Cigarettes Smoked Daily: 0 If you are a former smoker, when did you quit?: 2005 Hx Alcohol Use: No Drug/Substance Use Hx: No Substance Use Type: None Hx Substance Use Treatment: No Review of Systems - Review of Systems Constitutional: No: Chills, Fever HEENTM: No: Blurred Vision, Double Vision Respiratory: Yes: Shortness of Breath. No: Cough, Stridor, Wheezing Cardiac (ROS): Yes: Chest Pain. No: Lightheadedness, Palpitations, Syncope ABD/GI: No: Constipated, Diarrhea, Nausea, Vomiting *Physical Exam - Vital Signs Last Vital Signs Temp Pulse Resp BP Pulse Ox 97.7 F 64 18 162/74 97 06/18/19 01:57 06/18/19 01:57 06/18/19 01:57 06/18/19 01:57 06/18/19 01:57 - Physical Exam General Appearance: Yes: Nourished, Appropriately Dressed HEENT: positive: Normal Voice, Hearing Decreased Neck: positive: Trachea midline, Supple Respiratory/Chest: positive: Lungs Clear, Normal Breath Sounds. negative: Crackles, Wheezing Cardiovascular: positive: S1, S2. negative: Edema Gastrointestinal/Abdominal: positive: Normal Bowel Sounds, Soft Extremity: positive: Normal Capillary Refill, Normal Inspection Integumentary: positive: Normal Color, Dry, Warm Heart Score/ECG Review - ECG Impressions Comment:: 06/18/19 07:15 HR 63, LVH, LAD, TWI in V1, Flat T waves in V3 - no acute ischemic changes from EKG of 05/2019 ED Treatment Course - LABORATORY CBC & Chemistry Diagram: 06/18/19 04:00 06/18/19 04:00 Medical Decision Making - Medical Decision Making 06/18/19 06:33 74 y/o male with significant cardiac history including [place] s/p CABG, AAA s/p repair, CHF w/acute onset of CP, now resolved Chest pain of different quality than previous episodes Patient is well known to our ED, however limited number of c/o CP Heart Score 4 EKG w/o ischemic change as documented in EKG section EMR 06/18/19 07:13 Troponin (-) x1 Other labs unremarkable Case d/w Dr. Huerta (PGY-3) will admit OBS Tele Discharge - Discharge Information Problems reviewed: Yes Clinical Impression/Diagnosis: Chest pain Condition: Fair - Admission Yes - Follow up/Referral Referrals: Chandu Hogan MD [Primary Care Provider] - - Patient Discharge Instructions - Post Discharge Activity
--- NOTE | 2019-06-18 03:42 | PDOC ---
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 CP assciated w/ sob. no n/v/d, no syncope, no palps, no diaphoresis. - Physicial Exam PE: 06/18/19 05:06 nad, well appearing rrr ctabl soft ntnd A&O x 3, thought process in clear at this time. - Medical Decision Making 06/18/19 05:49 74yoM hx of cad, aaa s/p repair, chf, schizophrenia presnets w/ episode of chest pain earlier tongiht, now resolved. Pt has frequent ED visits, but does not complain of chest pain and states that he rarely gets pain similar to tonight's episode. 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
[2019-06-18 04:30] LABS: BASO % 0.3 % (0-2.0); HEMATOCRIT 35.2 % (35.4-49); LYMPH % 21.4 % (8-40); MCH 32.5 pg (25.7-33.7); MCHC 34.2 g/dl (32.0-35.9); MEAN CELL VOLUME 95.1 fl (80-96); MEAN PLT VOLUME 7.2 fl (7.5-11.1); MONO % 7.3 % (3.8-10.2); PLATELET COUNT 392 K/MM3 (134-434); WHITE BLOOD COUNT 10.7 K/mm3 (4.0-10.0)
[2019-06-18 04:51] LABS: ALBUMIN 3.2 g/dl (3.4-5.0); ALK PHOS 65 U/L (45-117); ANION GAP 7 MMOL/L (8-16); BILIRUBIN,TOTAL 0.1 mg/dL (0.2-1); BLOOD UREA NITROGEN 23.4 mg/dL (7-18); CALCIUM 8.9 mg/dL (8.5-10.1); CHLORIDE 106 mmol/L (98-107); CO2 24 mmol/L (21-32); CREATININE 1.1 mg/dL (0.55-1.3); GLUCOSE,RANDOM 105 mg/dL (74-106); N-TERMINAL BNP 352.5 pg/ml (5-450); POTASSIUM 4.2 mmol/L (3.5-5.1); SGOT/AST 36 U/L (15-37); SGPT/ALT 49 U/L (13-61); SODIUM 137 mmol/L (136-145); TOT PROT 5.8 g/dl (6.4-8.2)
--- NOTE | 2019-06-18 08:49 | HP ---
CHIEF COMPLAINT: chest pain PCP: Dr. Hogan HISTORY OF PRESENT ILLNESS: Patient is a poor historian. 74 year old man with a PMH of HTN, HLD, CAD, [place] s/p stents, COPD, HFpEF, AAA repair with stent, Chronic hyponatremia, Paranoid schizophrenia, Tardive dyskinesia, Dementia, and Anxiety/depression who presented to the ED after 1-2 hours of chest pain. Pain is L sided sharp w/associated shortness of breath. He says he's had chest pain for many years. Patient currently denies pain. He denies dizziness, fevers, chills, nausea, vomiting, diarrhea, urinary changes. He was discharged yesterday from [facility] for a UTI and was sent to a SNF. 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 Allergies No Known Allergies Allergy (Verified 06/18/19 02:42) Verified HOME MEDICATIONS: Home Medications Medication Instructions Recorded Lisinopril 10 mg PO DAILY 10/28/16 Clopidogrel Bisulfate [Plavix -] 75 mg PO DAILY 04/23/17 Tiotropium [place] [Spiriva] 2 inh IH DAILY #30 cap.w.dev 01/22/18 Aspirin [ASA -] 81 mg PO DAILY 01/28/19 Risperidone 2 mg PO BID 01/28/19 Rosuvastatin [place] [Crestor] 10 mg PO DAILY 06/13/19 Tamsulosin HCl 0.4 mg PO DAILY 06/13/19 Zolpidem Tartrate 10 mg PO HS 06/13/19 predniSONE [Deltasone -] 10 mg PO BID 06/13/19 Alprazolam 1 mg PO BID 06/17/19 Bupropion HCl [Wellbutrin Xl] 1 tab PO DAILY 06/17/19 Cefuroxime Axetil [Ceftin -] 500 mg PO BID #5 tablet 06/17/19 REVIEW OF SYSTEMS CONSTITUTIONAL: Absent: fever, chills, diaphoresis, generalized weakness, malaise, loss of appetite, weight change HEENT: Absent: rhinorrhea, nasal congestion, throat pain, throat swelling, difficulty swallowing, mouth swelling, ear pain, eye pain, visual changes CARDIOVASCULAR: chest pain Absent: syncope, palpitations, irregular heart rate, lightheadedness, peripheral edema RESPIRATORY: sob Absent: cough, dyspnea with exertion, orthopnea, wheezing, stridor, hemoptysis GASTROINTESTINAL: Absent: abdominal pain, abdominal distension, nausea, vomiting, diarrhea, constipation, melena, hematochezia GENITOURINARY: Absent: dysuria, frequency, urgency, hesitancy, hematuria, flank pain, genital pain MUSCULOSKELETAL: Absent: myalgia, arthralgia, joint swelling, back pain, neck pain SKIN: Absent: rash, itching, pallor PHYSICAL EXAMINATION Vital Signs - 24 hr 06/18/19 06/18/19 01:57 06:53 Temperature 97.7 F 98.4 F Pulse Rate 64 Pulse Rate [ 63 Right Radial] Respiratory 18 15 Rate Blood Pressure 162/74 Blood Pressure 140/70 [Left Arm] O2 Sat by Pulse 97 98 Oximetry (%) GENERAL: a/o x 3, comfortable, eating breakfast HEAD: Normal with no signs of trauma. EYES: Pupils equal, round and reactive to light EARS, NOSE, THROAT: oropharynx clear without exudates. Moist mucous membranes. NECK: supple without lymphadenopathy, JVD, or masses. LUNGS: cta b/l HEART: RRR, no MGR ABDOMEN: Soft, nontender, not distended, normoactive bowel sounds LOWER EXTREMITIES: 2+ pulses, warm, well-perfused. No calf tenderness. No peripheral edema. Laboratory Results - last 24 hr 06/18/19 06/18/19 06/18/19 03:46 04:00 04:00 WBC 10.7 H RBC 3.70 L Hgb 12.0 Hct 35.2 L MCV 95.1 MCH 32.5 MCHC 34.2 RDW 13.0 Plt Count 392 MPV 7.2 L Absolute Neuts (auto) 7.5 Neutrophils % 70.0 Lymphocytes % 21.4 D Monocytes % 7.3 Eosinophils % 1.0 Basophils % 0.3 Nucleated RBC % 0 Sodium Potassium Chloride Carbon Dioxide Anion Gap BUN Creatinine Est GFR (CKD-EPI)AfAm Est GFR (CKD-EPI)NonAf Random Glucose Calcium Total Bilirubin AST ALT Alkaline Phosphatase Creatine Kinase 147 Troponin I < 0.02 B-Natriuretic Peptide Cancelled Total Protein Albumin 06/18/19 04:00 WBC RBC Hgb Hct MCV MCH MCHC RDW Plt Count MPV Absolute Neuts (auto) Neutrophils % Lymphocytes % Monocytes % Eosinophils % Basophils % Nucleated RBC % Sodium 137 Potassium 4.2 Chloride 106 Carbon Dioxide 24 Anion Gap 7 L BUN 23.4 H Creatinine 1.1 Est GFR (CKD-EPI)AfAm 75.71 Est GFR (CKD-EPI)NonAf 65.32 Random Glucose 105 Calcium 8.9 Total Bilirubin 0.1 L AST 36 ALT 49 Alkaline Phosphatase 65 Creatine Kinase Troponin I B-Natriuretic Peptide 352.5 Total Protein 5.8 L Albumin 3.2 L ASSESSMENT/PLAN: 74 year old man with a PMH of HTN, HLD, CAD, [place] s/p stents, COPD, HFpEF, AAA repair with stent, Chronic hyponatremia, Paranoid schizophrenia, Tardive dyskinesia, Dementia, and Anxiety/depression who presented after have 1-2 hours of L sided chest pain. #Chest Pain -r/o ACS- currently asymptomatic -no ekg changes -tele monitoring -echo -trop neg x 1 -FU repeat trop #COPD -stable -resume home medications #UTI -cont Ceftin 500mg BID. Complete tomorrow 06/19 #HTN -controlled -cont. home BP meds #Schizophrenia -normal mood and affect -continue home psych meds #CKD -at baseline #FEN -no iv fluids -monitor -regular diet #dvt ppx hep sq dispo: awaiting echo results. will likely dc back to SNF if tests are unremarkable Visit type - Emergency Visit Emergency Visit: Yes ED Registration Date: 06/18/19 Care time: The patient presented to the Emergency Department on the above date and was hospitalized for further evaluation of their emergent condition. - New Patient This patient is new to me today: Yes Date on this admission: 06/18/19 - Critical Care Critical Care patient: No ATTENDING PHYSICIAN STATEMENT I saw and evaluated the patient. I reviewed the resident's note and discussed the case with the resident. I agree with the resident's findings and plan as documented. SUBJECTIVE: OBJECTIVE: ASSESSMENT AND PLAN:
--- NOTE | 2019-06-18 09:24 | EKG ---
Test Reason : Blood Pressure : / mmHG Vent. Rate : 063 BPM Atrial Rate : 063 BPM P-R Int : 202 ms QRS Dur : 092 ms QT Int : 410 ms P-R-T Axes : 090 -39 -09 degrees QTc Int : 419 ms NORMAL SINUS RHYTHM WITH SINUS ARRHYTHMIA LEFT AXIS DEVIATION MINIMAL VOLTAGE CRITERIA FOR LVH, MAY BE NORMAL VARIANT INFERIOR INFARCT (CITED ON OR BEFORE 21-AUG-2016) ABNORMAL ECG WHEN COMPARED WITH ECG OF 12-JUN-2019 19:32, PREMATURE SUPRAVENTRICULAR COMPLEXES ARE NO LONGER PRESENT CRITERIA FOR ANTERIOR INFARCT ARE NO LONGER PRESENT CRITERIA FOR ANTEROLATERAL INFARCT ARE NO LONGER PRESENT T WAVE INVERSION NOW EVIDENT IN INFERIOR LEADS Confirmed by Charles Arellano MD ([id number]) on 06/18/2019 9:23:41 AM Referred By: Confirmed By:Charles Arellano MD
[2019-06-18] MEDS ORDERED: TIOTROPIUM BROMIDE 2.5 MCG (SPIRIVA) RESPIMAT INHALER IH SCH (10:00)
[2019-06-18] MEDS ORDERED: risperiDONE 1 MG TABLET PO SCH (10:00)
[2019-06-18] MEDS ORDERED: predniSONE 10 MG TABLET (UD) PO SCH (10:00)
[2019-06-18] MEDS ORDERED: ALPRAZolam 1 MG TABLET PO SCH (10:00)
[2019-06-18] MEDS ORDERED: HEPARIN NA (PORCINE) 5,000 UNITS/ML 1ML VIAL SQ SCH (10:00)
[2019-06-18] MEDS ORDERED: ASPIRIN 81 MG CHEWABLE TABLETS PO SCH (10:00)
[2019-06-18] MEDS ORDERED: CEFUROXIME AXETIL 500 MG TABLET PO SCH (10:00)
[2019-06-18] MEDS ORDERED: LISINOPRIL 10 MG TABLET (FP) PO SCH (10:00)
[2019-06-18] MEDS ORDERED: TAMSULOSIN HCL 0.4 MG CAP PO SCH (10:00)
[2019-06-18] MEDS ORDERED: CLOPIDOGREL BISULFATE 75 MG TABLET (FP) PO SCH (10:00)
[2019-06-18] MEDS ORDERED: ALPRAZolam 1 MG TABLET ONE (10:24)
--- NOTE | 2019-06-18 10:32 | ECHO ---
Name: LELO EVANS Exam:Adult Echocardiogram Study Date: 06/18/2019 09:05 AM Age: 74 yrs Height: 67 in Weight: 175 lb BSA: 1.9 m2 MMode/2D Measurements & Calculations IVSd: 0.95 cm Ao root diam: 3.9 cm LVIDd: 4.5 cm LA dimension: 3.1 cm LVIDs: 3.3 cm ACS: 2.2 cm LVPWd: 0.91 cm EDV(Teich): 93.5 ml LVOT diam: 2.0 cm ESV(Teich): 43.5 ml Doppler Measurements & Calculations MV E max amos: 65.9 cm/sec Ao V2 max: 143.5 cm/sec MV A max amos: 99.2 cm/sec Ao max P.2 mmHg MV E/A: 0.66 Ao V2 mean: 94.2 cm/sec MV dec time: 0.13 sec Ao mean P.0 mmHg Ao V2 VTI: 24.9 cm VALDEMAR(I,D): 2.1 cm2 VALDEMAR(V,D): 2.1 cm2 LV V1 max P.7 mmHg MR max amos: 132.8 cm/sec LV V1 mean P.9 mmHg MR max P.1 mmHg LV V1 max: 96.7 cm/sec LV V1 mean: 63.3 cm/sec LV V1 VTI: 16.9 cm SV(LVOT): 52.6 ml TR max amos: 141.9 cm/sec TR max P.8 mmHg PA V2 max: 74.5 cm/sec Med Peak E' Amos: 7.1 cm/sec PA max P.2 mmHg Med E/e': 9.2 Lat Peak E' Amos: 10.6 cm/sec Lat E/e': 6.2 Procedure A complete two-dimensional transthoracic echocardiogram was performed (2D, M-mode, Doppler and color flow Doppler). Left Ventricle The left ventricular size, thickness and function are normal. Ejection Fraction = 55%. E/A reversal c onsistent with but not diagnostic of poor LV compliance. Septal motion is consistent with conduction abnormalit y. Right Ventricle The right ventricle is normal in size and function. Atria Normal left and right atrial size and function. Mitral Valve There is mild mitral annular calcification. There is mild mitral valve thickening. Tricuspid Valve The tricuspid valve is normal in structure and function. There is trace tricuspid regurgitation. Ther e was insufficient TR detected to calculate RV systolic pressure. Aortic Valve There is trivial aortic valve thickening. Pulmonic Valve The pulmonic valve is not well visualized. Great Vessels The aortic root is normal size. Pericardium/Pleura There is no pericardial effusion. There is no pleural effusion. Interpretation Summary This degree of valvular regurgitation is within normal limits. The left ventricular size, thickness a nd function are normal Ejection Fraction = 55%. Septal motion is consistent with conduction abnormality. The right ventricle is normal in size and function. There is mild mitral valve thickening. There is mild mitral annular calcification. MD Charles Arellnao 06/18/2019 10:32 AM
--- NOTE | 2019-06-18 16:23 | DS ---
Physical Exam: SUBJECTIVE: Patient seen and examined. offers no complaints. OBJECTIVE: Vital Signs Period Temp Pulse Resp BP Sys/Gonzales Pulse Ox Last 24 Hr 97.7 F-98.4 F 61-68 15-18 110-162/61-74 97-100 PHYSICAL EXAM GENERAL: a/o x 3, comfortable, eating breakfast HEAD: Normal with no signs of trauma. EYES: Pupils equal, round and reactive to light EARS, NOSE, THROAT: oropharynx clear without exudates. Moist mucous membranes. NECK: supple without lymphadenopathy, JVD, or masses. LUNGS: cta b/l HEART: RRR, no MGR ABDOMEN: Soft, nontender, not distended, normoactive bowel sounds LOWER EXTREMITIES: 2+ pulses, warm, well-perfused. No calf tenderness. No peripheral edema. LABS Laboratory Results - last 24 hr 06/18/19 06/18/19 06/18/19 03:46 04:00 04:00 WBC 10.7 H RBC 3.70 L Hgb 12.0 Hct 35.2 L MCV 95.1 MCH 32.5 MCHC 34.2 RDW 13.0 Plt Count 392 MPV 7.2 L Absolute Neuts (auto) 7.5 Neutrophils % 70.0 Lymphocytes % 21.4 D Monocytes % 7.3 Eosinophils % 1.0 Basophils % 0.3 Nucleated RBC % 0 Sodium Potassium Chloride Carbon Dioxide Anion Gap BUN Creatinine Est GFR (CKD-EPI)AfAm Est GFR (CKD-EPI)NonAf Random Glucose Calcium Total Bilirubin AST ALT Alkaline Phosphatase Creatine Kinase 147 Troponin I < 0.02 B-Natriuretic Peptide Cancelled Total Protein Albumin 06/18/19 04:00 WBC RBC Hgb Hct MCV MCH MCHC RDW Plt Count MPV Absolute Neuts (auto) Neutrophils % Lymphocytes % Monocytes % Eosinophils % Basophils % Nucleated RBC % Sodium 137 Potassium 4.2 Chloride 106 Carbon Dioxide 24 Anion Gap 7 L BUN 23.4 H Creatinine 1.1 Est GFR (CKD-EPI)AfAm 75.71 Est GFR (CKD-EPI)NonAf 65.32 Random Glucose 105 Calcium 8.9 Total Bilirubin 0.1 L AST 36 ALT 49 Alkaline Phosphatase 65 Creatine Kinase Troponin I < 0.02 B-Natriuretic Peptide 352.5 Total Protein 5.8 L Albumin 3.2 L HOSPITAL COURSE: Date of Admission:06/18/19 74 year old man with a PMH of HTN, HLD, CAD, [place] s/p stents, COPD, HFpEF, AAA repair with stent, Chronic hyponatremia, Paranoid schizophrenia, Tardive dyskinesia, Dementia, and Anxiety/depression who presented after have 1-2 hours of L sided chest pain. #Chest Pain -r/o ACS- currently asymptomatic -no ekg changes -tele monitoring -echo unremarkable -trop neg x 2 -FU repeat trop #COPD -stable -resume home medications #UTI -cont Ceftin 500mg BID. Complete tomorrow 06/19 #HTN -controlled -cont. home BP meds #Schizophrenia -normal mood and affect -continue home psych meds Date of Discharge: 06/18/19 Minutes to complete discharge: 35 Discharge Summary Problems reviewed: Yes Reason For Visit: CHEST PAIN Current Active Problems Chest pain (Acute) Condition: Fair - Instructions Diet, Activity, Other Instructions: You were admitted because of chest pain. All of our testing came back negative. Please follow up with your primary care doctor in 1 week. We have made no changes to your medications. You will need to take 3 more doses of your antibiotics. Complete on 06/19. If you develop chest pain, shortness of breath, nausea, vomiting, fevers, chills , please go to your nearest emergency department. Referrals: Chandu Hogan MD [Primary Care Provider] - 1 Week Disposition: TRANSFER ACUTE CARE/OTHER HOSP - Home Medications Comprehensive Discharge Medication List: Ambulatory Orders Lisinopril 10 mg PO DAILY 10/28/16 Clopidogrel Bisulfate [Plavix -] 75 mg PO DAILY 04/23/17 Tiotropium [place] [Spiriva] 2 inh IH DAILY #30 cap.w.dev 01/22/18 Aspirin [ASA -] 81 mg PO DAILY 01/28/19 Risperidone 2 mg PO BID 01/28/19 Rosuvastatin Calcium [Crestor] 10 mg PO DAILY 06/13/19 Tamsulosin HCl 0.4 mg PO DAILY 06/13/19 Zolpidem Tartrate 10 mg PO HS 06/13/19 predniSONE [Deltasone -] 10 mg PO BID 06/13/19 Alprazolam 1 mg PO BID 06/17/19 Bupropion HCl [Wellbutrin Xl] 1 tab PO DAILY 06/17/19 Cefuroxime Axetil [Ceftin -] 500 mg PO BID #3 tablet 02/04/20 This patient is new to me today: Yes Date on this admission: 06/18/19 Emergency Visit: Yes ED Registration Date: 06/18/19 Care time: The patient presented to the Emergency Department on the above date and was hospitalized for further evaluation of their emergent condition. Critical Care patient: No - Discharge Referral Referred to [facility] Med P.C.: No ATTENDING PHYSICIAN STATEMENT I saw and evaluated the patient. I reviewed the resident's note and discussed the case with the resident. I agree with the resident's findings and plan as documented. SUBJECTIVE: OBJECTIVE: ASSESSMENT AND PLAN:
--- NOTE | 2019-06-18 18:11 | PN ---
Teaching Attending Note Name of Resident: Ina Huerta ATTENDING PHYSICIAN STATEMENT I saw and evaluated the patient. I reviewed the resident's note and discussed the case with the resident. I agree with the resident's findings and plan as documented. SUBJECTIVE: seen and examined at bedside. patient denies cp, sob, palpitations, states he doesn't even know why he came to ED, but he is hungry and wants to go home. OBJECTIVE: Vital Signs - 24 hr 06/18/19 06/18/19 06/18/19 01:57 06:53 07:30 Temperature 97.7 F 98.4 F Pulse Rate 64 Pulse Rate [ 61 Apical] Pulse Rate [ 63 61 Right Radial] Respiratory 18 15 18 Rate Blood Pressure 162/74 Blood Pressure 140/70 143/73 [Left Arm] O2 Sat by Pulse 97 98 99 Oximetry (%) 06/18/19 06/18/19 06/18/19 08:00 09:56 14:00 Temperature 98.3 F 98.1 F Pulse Rate Pulse Rate [ 66 68 Apical] Pulse Rate [ 66 Right Radial] Respiratory 18 18 Rate Blood Pressure Blood Pressure 114/66 110/61 [Left Arm] O2 Sat by Pulse 99 98 100 Oximetry (%) PE: GENERAL: NAD LUNGS: cta b/l, unlabored HEART: RRR, s1s2, no mrg ABDOMEN: Soft, NT/ND, nabs EXTREMITIES: 2+ pulses, no edema Current Medications Alprazolam (Xanax) 1 mg PO BID [facility] Last Admin: 06/18/19 10:00 Dose: 1 mg Aspirin (Asa -) 81 mg PO DAILY [facility] Last Admin: 06/18/19 11:00 Dose: 81 mg Bupropion HCl (Wellbutrin Xl -) 300 mg PO DAILY [facility] Last Admin: 06/18/19 11:31 Dose: Not Given Cefuroxime Axetil (Ceftin -) 500 mg PO BID [facility] Last Admin: 06/18/19 11:00 Dose: 500 mg Clopidogrel Bisulfate (Plavix -) 75 mg PO DAILY [facility] Last Admin: 06/18/19 11:00 Dose: 75 mg Heparin Sodium (Porcine) (Heparin -) 5,000 unit SQ BID [facility] Last Admin: 06/18/19 11:29 Dose: 5,000 unit Lisinopril (Prinivil) 10 mg PO DAILY [facility] Last Admin: 06/18/19 11:00 Dose: 10 mg Prednisone (Deltasone -) 10 mg PO BID [facility] Last Admin: 06/18/19 11:00 Dose: 10 mg Risperidone (Risperdal -) 2 mg PO BID [facility] Last Admin: 06/18/19 11:00 Dose: 2 mg Rosuvastatin Calcium (Crestor -) 10 mg PO HS [facility] Tamsulosin HCl (Flomax -) 0.4 mg PO DAILY@0830 [facility] Last Admin: 06/18/19 11:00 Dose: 0.4 mg Tiotropium [place] (Spiriva Respimat) 2 puff IH DAILY [facility] Last Admin: 06/18/19 11:30 Dose: Not Given Zolpidem Tartrate (Ambien -) 5 mg PO HS PRN PRN Reason: INSOMNIA Laboratory Results - last 24 hr 06/18/19 06/18/19 06/18/19 03:46 04:00 04:00 WBC 10.7 H RBC 3.70 L Hgb 12.0 Hct 35.2 L MCV 95.1 MCH 32.5 MCHC 34.2 RDW 13.0 Plt Count 392 MPV 7.2 L Absolute Neuts (auto) 7.5 Neutrophils % 70.0 Lymphocytes % 21.4 D Monocytes % 7.3 Eosinophils % 1.0 Basophils % 0.3 Nucleated RBC % 0 Sodium Potassium Chloride Carbon Dioxide Anion Gap BUN Creatinine Est GFR (CKD-EPI)AfAm Est GFR (CKD-EPI)NonAf Random Glucose Calcium Total Bilirubin AST ALT Alkaline Phosphatase Creatine Kinase 147 Troponin I < 0.02 B-Natriuretic Peptide Cancelled Total Protein Albumin 06/18/19 06/18/19 04:00 15:56 WBC RBC Hgb Hct MCV MCH MCHC RDW Plt Count MPV Absolute Neuts (auto) Neutrophils % Lymphocytes % Monocytes % Eosinophils % Basophils % Nucleated RBC % Sodium 137 Potassium 4.2 Chloride 106 Carbon Dioxide 24 Anion Gap 7 L BUN 23.4 H Creatinine 1.1 Est GFR (CKD-EPI)AfAm 75.71 Est GFR (CKD-EPI)NonAf 65.32 Random Glucose 105 Calcium 8.9 Total Bilirubin 0.1 L AST 36 ALT 49 Alkaline Phosphatase 65 Creatine Kinase 78 Troponin I < 0.02 < 0.02 B-Natriuretic Peptide 352.5 Total Protein 5.8 L Albumin 3.2 L ASSESSMENT: 74 year old man with a PMH of HTN, HLD, CAD, [place] s/p stents, COPD, HFpEF, AAA repair with stent, Chronic hyponatremia, Paranoid schizophrenia, Tardive dyskinesia, Dementia, and Anxiety/depression who presented after have 1-2 hours of L sided chest pain. Chest pain r/o ACS COPD HTN Schizophrenia CKD UTI 06/12/19-ecoli UTI PLAN: -ACS ruled out, trops neg, no ekg evidence of ischemia, nonspecific changes -would do stress test outpatient -echo with normal LV function, no ischemia/infarct -possible conduction abnormality, needs to follow-up outpatient -cont Ceftin 500mg BID for one more day stable for dc with close followup, patient is aware
[2019-06-18 20:21] VITALS: BP 141/77; PULSE 16; TEMP 98.9
[2019-06-18] MEDS ORDERED: ZOLPIDEM TARTRATE 5 MG TABLET PO PRN (22:00)
[2019-06-18] MEDS ORDERED: ROSUVASTATIN CA 10 MG TABLET (FP) PO SCH (22:00)
== END 2019-06-18 20:20 ==
LOC: JER 01:57 → JERBED 07:09
PROVIDERS: ADMIT Internal Medicine; ATTEND Internal Medicine
PROC: 3E013GC Introduction of Other Therapeutic Substance into Subcutaneous Tissue, Percutaneous Approach (ICD-10-PCS; principal; 2019-06-18)
DX: R07.89 Other chest pain (principal); I11.0 Hypertensive heart disease with heart failure; E78.5 Hyperlipidemia, unspecified; I25.10 Atherosclerotic heart disease of native coronary artery without angina pectoris; I25.2 Old myocardial infarction; I12.9 Hypertensive chronic kidney disease with stage 1 through stage 4 chronic kidney disease, or unspecified chronic kidney disease; N18.9 Chronic kidney disease, unspecified; I50.30 Unspecified diastolic (congestive) heart failure; J44.9 Chronic obstructive pulmonary disease, unspecified; F20.0 Paranoid schizophrenia; F41.9 Anxiety disorder, unspecified; F32.9 Major depressive disorder, single episode, unspecified; N39.0 Urinary tract infection, site not specified; Z95.5 Presence of coronary angioplasty implant and graft; Z86.79 Personal history of other diseases of the circulatory system; Z79.82 Long term (current) use of aspirin
CPT/HCPCS: 36415; 71045-TC-FY; 80053; 82550; 83880; 84484; 85025; 93005; 93010; 93306-TC; 96372; 99285-25; G0378; J1644; J2794

== ENCOUNTER 2020-02-03 13:03 | Emergency (ER) | payer OTHER, BC ==
--- NOTE | 2020-02-03 13:05 | PDOC ---
History of Present Illness - General Chief Complaint: Respiratory Stated Complaint: P/S I NEED NEBULIZER SOB Time Seen by Provider: 02/03/20 13:05 - History of Present Illness Initial Comments: 02/03/20 13:11 pt presents to the ED complaining of shortness of breath consistent with prior episodes of COPD. Patient did not try his inhaler at home because he forgot. Denies fever or cough. Denies chest pain or leg swelling. He is requesting a nebulizer treatment in the ED. 02/03/20 13:15 Past History - Medical History Allergies/Adverse Reactions: Allergies Allergy/AdvReac Type Severity Reaction Status Date / Time No Known Allergies Allergy Verified 02/03/20 13:06 Home Medications: Ambulatory Orders Lisinopril 10 mg PO DAILY 10/28/16 Clopidogrel Bisulfate [Plavix -] 75 mg PO DAILY 04/23/17 Tiotropium [place] [Spiriva] 2 inh IH DAILY #30 cap.w.dev 01/22/18 Aspirin [ASA -] 81 mg PO DAILY 01/28/19 Risperidone 2 mg PO BID 01/28/19 Rosuvastatin Calcium [Crestor] 10 mg PO DAILY 06/13/19 Tamsulosin HCl 0.4 mg PO DAILY 06/13/19 Zolpidem Tartrate 10 mg PO HS 06/13/19 Alprazolam 1 mg PO BID 06/17/19 Bupropion HCl [Wellbutrin Xl] 1 tab PO DAILY 06/17/19 Budesonide/Formeterol Fumarate [SYMBICORT 160/4.5mcg -] 1 inh IN DAILY 09/04/19 Fenofibrate Nanocrystallized [Fenofibrate] 48 mg PO DAILY 09/04/19 Anemia: No Asthma: No Cancer: No Cardiac Disorders: Yes (cardiac [id number], history of [place] 2005) CVA: No COPD: Yes CHF: No DVT: No Dementia: Yes (FORGETFUL) Diabetes: No GI Disorders: Yes (HEARTBURN) Disorders: No HTN: Yes Hypercholesterolemia: Yes Liver Disease: No Psychiatric Problems: Yes Seizures: No Thyroid Disease: No - Surgical History Abdominal Surgery: Yes (AAA 02/03/2017) Appendectomy: No Cardiac Surgery: Yes (cardiac stent 2005 & 04/2017) Cholecystectomy: No Lung Surgery: No Neurologic Surgery: No Orthopedic Surgery: No - Immunization History Td Vaccination: Yes TDAP Vaccination: Yes Immunization Up to Date: Yes - Psycho-Social/Smoking History Smoking Status: No Smoking History: Former smoker Have you smoked in the past 12 months: No Number of Cigarettes Smoked Daily: 0 If you are a former smoker, when did you quit?: 14 YEARS *Physical Exam - Physical Exam 02/03/20 14:00 GEn: alert, NAD HEENT: normocephalic, atraumatic Cv: rrr no m/r/g pulm: CTA b/l speaking in complete sentences. No tachypnea, accessory muscle use or signs of respiratory distress. Ext: no edema. no deformity or tenderness Neuro: alert and oriented x 3. Ambulatory in the ED with normal gait. Medical Decision Making - Medical Decision Making 02/03/20 14:02 Pt presents to the ED complaining of shortness of breath. Symptoms completely resolved after neb x 2. No other complaints. Symptoms started just prior to arrival. No indication for steriods given the mildness and briefness of his symptoms. Will discharge home with instructions to follow up with PCP Discharge - Discharge Information Problems reviewed: Yes Clinical Impression/Diagnosis: COPD (chronic obstructive pulmonary disease) Condition: Good Disposition: HOME - Admission No - Follow up/Referral - Patient Discharge Instructions Patient Printed Discharge Instructions: DI for Chronic Obstructive Pulmonary Disease Additional Instructions: you came to the ED complaining of shortness of breath. We gave you nebulizers and you felt better. You should remember to use your inhaler at home when you feel short of breath and to return to the ED if you do not feel better after using it. Also return for fever, severe shortness of breath, other new or worseing symptoms. Call your doctor for follow up. - Post Discharge Activity
[2020-02-03] MEDS ORDERED: ALBUTEROL SO4 2.5/IPRATROPIUM 0.5 INH SOL 3 ML VIAL.NEB. NEB ONE ×4 (13:10→13:34)
[2020-02-03 13:11] VITALS: BP 144/86; PULSE 72; TEMP 98.2; BMI 25.0
== END 2020-02-03 14:10 | disposition home or self-care (01) ==
LOC: FER 13:03
PROC: 3E0F7GC Introduction of Other Therapeutic Substance into Respiratory Tract, Via Natural or Artificial Opening (ICD-10-PCS; principal; 2020-02-03)
DX: J44.9 Chronic obstructive pulmonary disease, unspecified (principal)
CPT/HCPCS: 99284-25

== ENCOUNTER 2020-02-18 10:12 | Emergency (ER) | payer OTHER, BC ==
[2020-02-18] MEDS ORDERED: ALBUTEROL SO4 2.5/IPRATROPIUM 0.5 INH SOL 3 ML VIAL.NEB. NEB ONE (10:24)
[2020-02-18 10:26] VITALS: BP 157/106; TEMP 98.2; BMI 25.8
--- NOTE | 2020-02-18 10:35 | PDOC ---
History of Present Illness - General Chief Complaint: Respiratory Stated Complaint: DIFF BREATHING Time Seen by Provider: 02/18/20 10:18 - History of Present Illness Initial Comments: HPI: 02/18/20 10:25 74 yo M PMH HTN, HLD, CAD, [place] s/p stents, COPD, HFpEF, AAA repair with stent, chronic hyponatremia, paranoid schizophrenia, tardive dyskinesia, dementia, and anxiety/depression, presenting with shortness of breath. Mr. Ann states that he has been feeling shortness of breath since yesterday, and has not been taking his nebulizer because he does not have one. Denies CP, fevers/chills, abd pain, N/V, diaphoresis. ROS: GENERAL/CONSTITUTIONAL: denies fever, chills, diaphoresis, generalized weakness, malaise HEAD, EYES, EARS, NOSE AND THROAT: denies rhinorrhea, nasal congestion, throat pain, throat swelling, difficulty swallowing NEUROLOGIC: denies headache, focal weakness, dizziness, unsteady gait, seizure, mental status changes CARDIOVASCULAR: denies chest pain, syncope, palpitations, irregular heart rate, lightheadedness, peripheral edema RESPIRATORY: endorses shortness of breath. Denies cough, dyspnea with exertion, wheezing GASTROINTESTINAL: denies abdominal pain, abdominal distension, nausea, vomiting, diarrhea, constipation, melena, hematochezia GENITOURINARY: denies dysuria, frequency, urgency MUSCULOSKELETAL: denies myalgia, arthralgia, joint swelling, back pain, neck pain SKIN: denies rash, itching HEMATOLOGIC/IMMUNOLOGIC: denies easy bleeding, easy bruising, lymphadenopathy, frequent infections ENDOCRINE: denies unexplained weight gain, unexplained weight loss, heat into lerance, cold intolerance PSYCHIATRIC: denies anxiety, depression, suicidal or homicidal ideation, hallucinations PE: Gen: well-developed, well-nourished, NAD Neuro: AAOX4, CN II-XII intact, actively in tardive dyskinesia and licking lips HEENT: atraumatic, normocephalic Neck: trachea midline, supple CV: regular rate, regular rhythm, no murmurs, rubs, or gallops Pulm: CTA b/l, no wheezing Abd: soft, non-distended, non-tender MSK: full ROM, intact pulses Extr: no edema, no deformities Skin: warm, dry MDM: Very low concern for severe COPD exacerbation considering lack of wheezing, satting 97% on RA. Patient has not had a nebulizer. - 2X Duoneb - reassess - likely dc for further outpatient management, prescription for nebulizer 02/18/20 11:03 Patient reassessed, feeling better. Will prescribe nebulizer machine, nebulizer solution, and albuterol inhaler PRN, dc for further outpatient management. Past History - Medical History Allergies/Adverse Reactions: Allergies Allergy/AdvReac Type Severity Reaction Status Date / Time No Known Allergies Allergy Verified 02/03/20 13:06 Home Medications: Ambulatory Orders Lisinopril 10 mg PO DAILY 10/28/16 Clopidogrel Bisulfate [Plavix -] 75 mg PO DAILY 04/23/17 Tiotropium [place] [Spiriva] 2 inh IH DAILY #30 cap.w.dev 01/22/18 Aspirin [ASA -] 81 mg PO DAILY 01/28/19 Risperidone 2 mg PO BID 01/28/19 Rosuvastatin Calcium [Crestor] 10 mg PO DAILY 06/13/19 Tamsulosin HCl 0.4 mg PO DAILY 06/13/19 Zolpidem Tartrate 10 mg PO HS 06/13/19 Alprazolam 1 mg PO BID 06/17/19 Bupropion HCl [Wellbutrin Xl] 1 tab PO DAILY 06/17/19 Budesonide/Formeterol Fumarate [SYMBICORT 160/4.5mcg -] 1 inh IN DAILY 09/04/19 Fenofibrate Nanocrystallized [Fenofibrate] 48 mg PO DAILY 09/04/19 Albuterol 0.083% Nebulizer Aletha [Ventolin 0.083% Nebulizer Soln -] 1 neb NEB Q6H PRN #30 vial 02/18/20 Albuterol Sulfate Inhaler - [Ventolin HFA Inhaler -] 1 - 2 inh PO QID PRN #1 inhaler 02/18/20 Nebulizer [Aeroeclipse II] 1 each MC 1XPACU #1 each 02/18/20 Anemia: No Asthma: No Cancer: No Cardiac Disorders: Yes (cardiac [id number], history of [place] 2005) CVA: No COPD: Yes CHF: No DVT: No Dementia: Yes (FORGETFUL) Diabetes: No GI Disorders: Yes (HEARTBURN) Disorders: No HTN: Yes Hypercholesterolemia: Yes Liver Disease: No Psychiatric Problems: Yes Seizures: No Thyroid Disease: No - Surgical History Abdominal Surgery: Yes (AAA 02/03/2017) Appendectomy: No Cardiac Surgery: Yes (cardiac stent 2005 & 04/2017) Cholecystectomy: No Lung Surgery: No Neurologic Surgery: No Orthopedic Surgery: No - Immunization History Td Vaccination: Yes TDAP Vaccination: Yes Immunization Up to Date: Yes - Psycho-Social/Smoking History Smoking Status: No Smoking History: Former smoker Have you smoked in the past 12 months: No Number of Cigarettes Smoked Daily: 0 If you are a former smoker, when did you quit?: 14 YEARS Discharge - Discharge Information Problems reviewed: Yes Clinical Impression/Diagnosis: COPD (chronic obstructive pulmonary disease) Qualifiers: COPD type: chronic bronchitis Chronic bronchitis type: simple Qualified Code(s): J41.0 - Simple chronic bronchitis Condition: Stable Disposition: HOME - Additional Discharge Information Prescriptions: Nebulizer [Aeroeclipse II] 1 each MC 1XPACU #1 each Albuterol 0.083% Nebulizer Aletha [Ventolin 0.083% Nebulizer Soln -] 1 neb NEB Q6H PRN #30 vial PRN Reason: Shortness Of Breath Albuterol Sulfate Inhaler - [Ventolin HFA Inhaler -] 1 - 2 inh PO QID PRN #1 inhaler PRN Reason: Shortness Of Breath - Follow up/Referral Referrals: [facility] [Provider Group] [facility] [Provider Group] - Patient Discharge Instructions Patient Printed Discharge Instructions: DI for Chronic Obstructive Pulmonary Disease, DI for Shortness of Breath - Post Discharge Activity
--- NOTE | 2020-02-18 10:46 | PDOC ---
Attending Attestation - Resident Resident Name: Sara Ariza - ED Attending Attestation I have performed the following: I have examined & evaluated the patient, The case was reviewed & discussed with the resident, I agree w/resident's findings & plan - HPI HPI: 02/18/20 10:44 74 yo M PMH HTN, HLD, CAD, [place] s/p stents, COPD, HFpEF, AAA repair with stent, chronic hyponatremia, paranoid schizophrenia, tardive dyskinesia, dementia, and anxiety/depression, presenting with shortness of breath. Mr. Ann states that he has been feeling shortness of breath since yesterday, and has not been taking his nebulizer because he does not have one. Denies CP, fevers/chills, abd pain, N/V, diaphoresis. - Physicial Exam PE: 02/18/20 10:44 Agree with the resident's HPI and PE as documented in the electronic medical record. NAD, well appearing, awake and alert, +lip smacking and oral tardive dyskinesia (baseline), EOMI, PERRL, nl conjunctiva, anicteric; neck supple. lungs clear, RRR, abdomen soft nontender. no rebound, guarding. Back nontender. HELM x4, no focal neuro deficits. No peripheral edema. normal color for ethnicity, WWP. gait stable 02/18/20 10:51 - Medical Decision Making 02/18/20 10:45 Vital Signs Temp Pulse Resp BP Pulse Ox 98.2 F 112 H 20 157/106 H 97 02/18/20 10:13 02/18/20 10:13 02/18/20 10:13 02/18/20 10:13 02/18/20 10:13 vitals reviewed, mildly hypertensive and tachy he is hyperventilating, likely also component of anxious. sats 97% on RA no cp lungs are clear will give duonebs x2, reassess, as pt has h/o COPD pt feels better VS improved DC stable c ondition with nebulizer and albuterol treatments. prn use for sob and his copd return precautions pt aware of impression and plan, stable for DC. 02/18/20 11:06 Discharge - Discharge Information Problems reviewed: Yes Clinical Impression/Diagnosis: COPD (chronic obstructive pulmonary disease) Condition: Stable Disposition: HOME - Admission No - Additional Discharge Information Prescriptions: Nebulizer [Aeroeclipse II] 1 each MC 1XPACU #1 each Albuterol 0.083% Nebulizer [place] [Ventolin 0.083% Nebulizer Soln -] 1 neb NEB Q6H PRN #30 vial PRN Reason: Shortness Of Breath Albuterol Sulfate Inhaler - [Ventolin HFA Inhaler -] 1 - 2 inh PO QID PRN #1 inhaler PRN Reason: Shortness Of Breath - Follow up/Referral Referrals: [facility] [place] [facility] [Provider Group] [facility] [Provider Group] - Patient Discharge Instructions Patient Printed Discharge Instructions: DI for Chronic Obstructive Pulmonary Disease, DI for Shortness of Breath - Post Discharge Activity
--- OUTSIDE RECORDS SUMMARY | 2020-02-18 10:49 | XMS ---
:1945 Author Organization [facility] Care Team Providers Name Role Phone LAWRENCE STANLEY Unavailable Unavailable EMERGENCY SERVICE, X Unavailable Unavailable NOBLERJUDITH Unavailable Unavailable ALEX SNOW Unavailable Unavailable Garry Castaneda Unavailable Unavailable ANTONIO PELAEZ Unavailable Unavailable Re-disclosure Warning The records that you are about to access may contain information from federally- assisted alcohol or drug abuse programs. If such information is present, then the following federally mandated warning applies: This information has been disclosed to you from records protected by federal confidentiality rules (42 CFR part 2). The federal rules prohibit you from making any further disclosure of this information unless further disclosure is expressly permitted by the written consent of the person to whom it pertains or as otherwise permitted by 42 CFR part 2. A general authorization for the release of medical or other information is NOT sufficient for this purpose. The Federal rules restrict any use of the information to criminally investigate or prosecute any alcohol or drug abuse patient.The records that you are about to access may contain highly sensitive health information, the redisclosure of which is protected by Article 27-F of the [place] State Public Health law. If you continue you may haveaccess to information: Regarding HIV / AIDS; Provided by facilities licensed or operated by the [facility] Office of Mental Health; or Provided by the [facility] Office for People With Developmental Disabilities. If such information is present, then the following [facility] mandated warning applies: This information has been disclosed to you from confidential records which are protected by state law. State law prohibits you from making any further disclosure of this information without the specific written consent of the person to whom it pertains, or as otherwise permitted by law. Any unauthorized further disclosure in violation of state law may result in a fine or longterm sentence or both. A general authorization for the release of medical or other information is NOT sufficient authorization for further disclosure. Allergies and Adverse Reactions Type Description Substance Reaction Status Data Source(s ) To Be Determined To Be Determined [facility] ([facility]) Drug allergy No Known Drug No Known Drug [facility] Allergies Allergies [facility] Food allergy No Known Food No Known Food [facility] Allergies Allergies [facility] Drug allergy No Known Allergies No Known Allergies [facility] Encounters Encounter Providers Location Date Indications Data Source(s ) Emergency Attender: BENIGNO, 10/14/2019 [facility] Health are EMERGENCY SERVICE, EDT Corpor ation XAdmitter: BENIGNO ANTONIO TRANSFER Emergency Attender: GWENDOLYN, 10/12/2019 ALTERED MENTAL W [facility] ALEXAttender: 03:01:00 PM EDT STATUS Healt [facility] EMERGENCY SERVICE, Corpor ation XAdmitter: ALEX SNOWReferrer: EMERGENCY SERVICE, X ALTERED MENTAL STATUS Emergency Attender: LIZETH, 10/11/2019 01:39:00 PYSCH EV AL [facility] JAYAttender: EMERGENCY PM EDT He [facility] Care SERVICE, XAdmitter: Corpo ration LAWRENCE STANLEY Inpatient Attender: Garry 09/20/2019 05:00:00 PM [facility] EDT [facility]) Admission cancelled. Disregard status an d admitted date. Inpatient Attender: BEVERLY 07/03/2019 SCHIZOP[place]ENIA [facility] JUDITHAdmitter: 07:54:00 PM EST [facility] Care JUDITH PAUL 07/26/2019 Corporat ion 04:36:00 PM EDT SCHIZOPHRENIA Patient admitted. Emergency Attender: BEVERLY 07/03/2019 [facility]00 AM EST [facility] EMERGENCY SERVICE, Care C orporation XAdmitter: JUDITH PAUL PSYCH EVALUATION Immunizations Vaccine Date Status Description Data Source(s) Pneumococcal conjugate PCV 13 completed [facility] Corporatio n Medications Medication Brand Start Product Dose Route Administrative Pharmacy St atus Indications Reaction Description Data Name Date Form Instructions Instructions Source(s) Flomax Flomax 10/13/ 0.4 UNK active Flomax [facility] (Tamsulosin (Tamsu 2020 mg (Tamsulosin ) r [facility] ) losin) 09:40: Oral 0.4 mg [facility] 04 PM PO Care EDT Corporatio n Medication administered onsite Ativan Ativan 10/14/2019 1 mg UNK active Ativan [place] (Lorazepam) O (Lorazepam) O 09:39:55 [facility] Medication administered onsite Risperidone Risperidone 10/14/2019 2 mg UNK active Risperidone [place] (Risperd (Risperd 09:35:10 PM (Risp erdal) [facility] Medication administered onsite Diphenhydramine Diphenhydramine 10/12/2019 50 UNK active Diphenhydramine [place] (Seamus (Seamus 05:05:01 PM mg (Benadryl) [facility] EDT Injection 50 mg [facility] IM Corporation Medication administered onsite Haldol Haldol 10/12/2019 5 UNK active Haldol [place] (Haloperidol) (Haloperidol) 05:04:53 PM mg (Haloperidol) [facility] EDT Injection 5 mg [facility] IM Corporation Medication administered onsite Ativan Ativan 10/12/2019 2 mg UNK active Ativan [place] (Lorazepam) I (Lorazepam) I 04:46:58 PM (Lorazepam) [facility] EDT Injection 2 Health C are mg IM Corporation Medication administered onsite SEROquel SEROquel 10/12/2019 25 mg UNK active SE ROquel [place] Oral Oral 02:10:22 PM Oral 25 [facility] Care Corporation Medication administered onsite Clopidogrel Clopidogrel 07/04/2019 75 UNK active Clopidogrel [place] (Plavix) (Plavix) 09:21:41 AM mg (Plav ix) [facility] Oral 75 mg Health Ca re PO Corporation Medication administered onsite Lisinopril Lisinopril 07/04/2019 2.5 UNK active Lisinopril [place] (Peds) Or (Peds) Or 09:21:00 AM MG (Pe ds) Oral [facility] EST Give 2.5 Health Ca re PO Corporation Medication administered onsite Prednisone Prednisone 07/04/2019 10 UNK active Prednisone [place] (Deltason (Deltason 09:20:46 AM mg (De ltasone) [facility] EST Oral 10 mg Health Ca re PO Corporation Medication administered onsite Rosuvastatin Rosuvastatin 07/04/2019 10 UNK active Rosuvastatin [place] (Cresto (Cresto 09:20:32 AM mg (Cresto r) [facility] EST Oral 10 mg PO Health Care Corporation Medication administered onsite Xanax Xanax 07/04/2019 1 UNK active Xanax Hi [facility] (Alprazolam) (Alprazolam) 09:20:23 AM mg (Alprazolam) [facility] EST Oral 1 mg PO Health Care [place] Medication administered onsite Risperidone Risperidone 07/04/2019 2 mg UNK active Risperidone [place] (Risperd (Risperd 09:20:04 AM (Risp erdal) [facility] Oral 2 mg PO Health Care [place] Medication administered onsite Aspirin Aspirin 07/04/2019 81 mg UNK active Aspi rin [place] Chewable Chewable 09:19:53 AM Chewa ble [facility] Or Or EST Oral 81 mg Care PO Corporation Medication administered onsite Haldol Haldol 07/04/2019 2 UNK active Haldol [place] (Haloperidol) (Haloperidol) 09:11:06 AM mg (Haloperidol) [facility] Oral 2 mg PO Health Care [place] Medication administered onsite Augmentin Augmentin 07/04/2019 875 UNK active A ugmentin [place] (Amoxic (Amoxic 09:11:05 AM mg (Amoxic [facility] Clavulanate) Corpora tion Oral 875 mg PO Medication administered onsite Ambien Ambien 07/03/2019 5 mg UNK active Ambien [place] (Zolpidem) (Zolpidem) 09:55:41 PM ( Zolpidem) [facility] Or Or EST Oral 5 mg PO Health Care [place] Medication administered onsite Augmentin Augmentin 07/03/2019 875 UNK active A ugmentin [place] (Amoxic (Amoxic 07:51:00 PM mg (Amoxic [facility] Clavulanate) Corpora tion Oral 875 mg PO Medication administered onsite Risperidone 1 Risperidone completed [place] MG Oral Tablet [1 mg Coun ty Risperidone [1 Tablet]: 1 MG Health Care mg Tablet]: 1 Oral Q10PM Corporation MG Oral Q10PM 200 ACTUAT Atrovent HFA 999 inhalation completed Atrovent HFA [place] Ipratropium MG [place] 0.017 Health Care MG/ACTUAT Corporatio n Metered Dose Inhaler [Atrovent] Atrovent HFA Aspirin 81 MG Children's completed [place] Chewable Aspirin County Tablet (Aspirin) [81 Heal th Care Children's mg Tablet Jose C oration Aspirin Chew]: 81 MG (Aspirin) [81 Oral Q9AM mg Tablet Chew]: 81 MG Oral Q9AM Risperidone 1 risperidone 999 oral completed risperidone [place] MG Oral Tablet MG Count y [Risperdal] Health C are risperidone Corporat ion clopidogrel 75 Clopidogrel completed [place] MG Oral Tablet [75 mg Cou nty Clopidogrel Tablet]: 75 H ealt Care [75 mg MG Oral Q9AM Corpo ration Tablet]: 75 MG Oral Q9AM Zolpidem Zolpidem [5 completed [place] tartrate 5 MG mg Tablet]: 5 County Oral Tablet MG Oral Q10PM Health Care Zolpidem [5 mg Corpo ration Tablet]: 5 MG Oral Q10PM Escitalopram escitalopram 999 oral completed escitalopram [place] 10 MG Oral oxalate MG oxalate Cou nty Tablet Health Care [Lexapro] Corporatio n escitalopram oxalate Prednisone 10 prednisone 999 oral completed prednisone [place] MG Oral Tablet MG Count y [Predone] Health Car e prednisone Corporati on Rosuvastatin rosuvastatin 999 oral completed rosuvastatin [place] calcium 10 MG MG County Oral Tablet Health C are [Crestor] Corporatio n rosuvastatin pantoprazole pantoprazole 999 oral completed pantoprazole [place] 40 MG Delayed MG County Release Oral Health Care Tablet Corporation [Protonix] Escitalopram Escitalopram completed [place] 10 MG Oral [10 mg County Tablet Tablet]: 10 Health Care Escitalopram MG Oral Q9AM Corporation [10 mg Tablet]: 10 MG Oral Q9AM 200 ACTUAT Atrovent HFA 999 inhalation completed Atrovent HFA [place] Ipratropium MG [place] 0.017 Health Care MG/ACTUAT Corporatio n Metered Dose Inhaler [Atrovent] Atrovent HFA Tamsulosin tamsulosin 999 oral completed vela sulosin [place] hydrochloride MG [facility] 0.4 MG Oral Health C are Capsule Corporation [Flomax] tamsulosin pantoprazole pantoprazole 999 oral completed pantoprazole [place] 40 MG Delayed MG County Release Oral Health Care Tablet Corporation [Protonix] Tamsulosin tamsulosin 999 oral completed vela sulosin [place] hydrochloride MG [facility] 0.4 MG Oral Health C are Capsule Corporation [Flomax] tamsulosin Prednisone 10 prednisone 999 oral completed prednisone [place] MG Oral Tablet MG Count y [Predone] Health Car e prednisone Corporati on Freeze Dried [id number] completed [place] Acidophilus [facility] (Lactobacillus Healt Care acidophilus) Corpora tion [Capsule]: 1 Capsule Oral Q10PM Rosuvastatin rosuvastatin 999 oral completed rosuvastatin [place] calcium 10 MG MG [facility] Oral Tablet Health C are [Crestor] Corporatio n rosuvastatin Zolpidem zolpidem 999 oral completed zolpide m [place] tartrate 5 MG MG [facility] Oral Tablet Health C are [Stilnoct] Corporati on zolpidem Risperidone 1 risperidone 999 oral completed risperidone [place] MG Oral Tablet MG Count y [Risperdal] Health C are risperidone Corporat ion Rosuvastatin Rosuvastatin completed [place] calcium 10 MG [10 mg Coun ty Oral Tablet Tablet]: 10 H ealth Care Rosuvastatin MG Oral Q9AM Corporation [10 mg Tablet]: 10 MG Oral Q9AM Zolpidem zolpidem 999 oral completed zolpide m [place] tartrate 5 MG MG [facility] Oral Tablet Health C are [Stilnoct] Corporati on zolpidem clopidogrel 75 clopidogrel 999 oral completed clopidogrel [place] MG Oral Tablet MG Count y [Plavix] Health Care Corporation Lisinopril 2.5 Lisinopril completed [place] MG Oral Tablet [2.5 mg Co unty Lisinopril Tablet]: 2.5 H ealth Care [2.5 mg MG Oral Q9AM Jose C oration Tablet]: 2.5 MG Oral Q9AM 24 HR bupropion HCl 999 oral completed bupro pion [place] Bupropion MG HCl [facility] 300 MG Corporation Extended Release Oral Tablet [Wellbutrin] bupropion HCl Alprazolam 1 alprazolam 999 oral completed a lprazolam [place] MG Oral Tablet MG Count y [Calprazolam] Health Care [facility] 200 ACTUAT Atrovent HFA completed [place] Ipratropium (Ipratropium [place] 0.017 [place]) [17 Health Care MG/ACTUAT mcg/actuation C orporation Metered Dose MDI]: 1 PUFF Inhaler Inhalation Atrovent HFA [id number] PRN (Ipratropium SOB [place]) [17 mcg/actuation MDI]: 1 PUFF Inhalation [id number] PRN SOB Aspirin 81 MG aspirin 999 oral completed asp irin [place] Oral Tablet MG [facility] [Minita] [facility] aspirin [place] Alprazolam 1 Alprazolam [1 completed [place] MG Oral Tablet mg Tablet]: 1 [facility] Alprazolam [1 MG Oral Q9AM Health Care mg Tablet]: 1 Corpor ation MG Oral Q9AM Rosuvastatin rosuvastatin 999 oral completed rosuvastatin [place] calcium 10 MG MG [facility] Oral [facility] are [Crestor] Corporatio n rosuvastatin Tamsulosin [id number] completed [place] [0.4 mg County Capsule]: 0.4 Health Care MG Oral Q10PM Corpor ation 24 HR bupropion HCl 999 oral completed bupro pion [place] Bupropion MG HCl [facility] 300 MG Corporation Extended Release Oral Tablet [Wellbutrin] bupropion HCl Aspirin 81 MG aspirin 999 oral completed asp irin [place] Oral Tablet MG [facility] [Minita] [facility] aspirin [place] pantoprazole pantoprazole 999 oral completed pantoprazole [place] 40 MG Delayed MG County Release Oral Health Care Tablet Corporation [Protonix] Risperidone 1 risperidone 999 oral completed risperidone [place] MG Oral Tablet MG Count y [Risperdal] [facility] are risperidone Corporat ion pantoprazole Pantoprazole completed [place] 40 MG Delayed [40 mg TABLET County Release Oral DR]: 40 MG H ealth Care Tablet Oral Q9AM Corporat ion Pantoprazole [[address]]: 40 MG Oral Q9AM Alprazolam 1 alprazolam 999 oral completed a lprazolam [place] MG Oral Tablet MG Count y [Calprazolam] Health Care [facility] Lisinopril 2.5 lisinopril 999 oral completed lisinopril [place] MG Oral Tablet MG Count y [Prinivil] Health Ca re lisinopril Corporati on clopidogrel 75 clopidogrel 999 oral completed clopidogrel [place] MG Oral Tablet MG Count y [Plavix] Health Care Corporation Lisinopril 2.5 lisinopril 999 oral completed lisinopril [place] MG Oral Tablet MG Count y [Prinivil] Health Ca re lisinopril Corporati on Escitalopram escitalopram 999 oral completed escitalopram [place] 10 MG Oral oxalate MG oxalate Cou nty Tablet Health Care [Lexapro] Corporatio n escitalopram oxalate Tamsulosin tamsulosin 999 oral completed vela sulosin [place] hydrochloride MG County 0.4 MG Oral Health C are Capsule Corporation [Flomax] tamsulosin 200 ACTUAT Atrovent HFA 999 inhalation completed Atrovent HFA [place] Ipratropium MG [place] 0.017 Health Care MG/ACTUAT Corporatio n Metered Dose Inhaler [Atrovent] Atrovent HFA clopidogrel 75 clopidogrel 999 oral completed clopidogrel [place] MG Oral Tablet MG Count y [Plavix] Health Care Corporation Escitalopram escitalopram 999 oral completed escitalopram [place] 10 MG Oral oxalate MG oxalate Cou nty Tablet Health Care [Lexapro] Corporatio n escitalopram oxalate Prednisone 10 Prednisone completed [place] MG Oral Tablet [10 mg Cou nty Prednisone [10 Tablet]: 10 Health Care mg Tablet]: 10 MG Oral Q9AM Corporation MG Oral Q9AM Alprazolam 1 alprazolam 999 oral completed a lprazolam [place] MG Oral Tablet MG Count y [Calprazolam] Health Care Corporation Lisinopril 2.5 lisinopril 999 oral completed lisinopril [place] MG Oral Tablet MG Count y [Prinivil] Health Ca re lisinopril Corporati on Unable to Unable to 999 UNK discontinued Un able to [place] Obtain/Drug Obtain/Drug MG Obtain /Drug County Names Unknown Names Unknown [facility] Health Care Unknown Corporation 24 HR Bupropion HCl completed [place] Bupropion [300 mg County Hydrochloride Tablet ER]: Health Care 300 MG 300 MG Oral Corpor ation Extended Q9AM Release Oral Tablet Bupropion HCl [300 mg Tablet ER]: 300 MG Oral Q9AM 24 HR bupropion HCl 999 oral completed bupro pion [place] Bupropion MG HCl [facility] 300 MG Corporation Extended Release Oral Tablet [Wellbutrin] bupropion HCl Aspirin 81 MG aspirin 999 oral completed asp irin [place] Oral Tablet MG [facility] [Minitabs] Health Ca re aspirin Corporation Zolpidem zolpidem 999 oral completed zolpide m [place] tartrate 5 MG MG [facility] Oral [facility] C are [Stilnoct] Corporati on zolpidem Unable to Unable to 999 UNK discontinued Un able to [place] Obtain/Drug Obtain/Drug MG Obtain /Drug County Names Unknown Names Unknown [facility] Unknown Corporation Unable to Unable to 999 UNK completed Unabl e to [place] Obtain/Drug Obtain/Drug MG Obtain /Drug County Names Unknown Names Unknown [facility] Unknown Corporation Unable to Unable to 999 UNK discontinued Un able to [place] Obtain/Drug Obtain/Drug MG Obtain /Drug County Names Unknown Names Unknown [facility] Unknown Corporation Prednisone 10 prednisone 999 oral completed prednisone [place] MG Oral Tablet MG Count y [Predone] Health Car e prednisone Corporati on Insurance Providers Payer name Policy type Policy ID Covered Covered libertarian's Policy P salina / Coverage libertarian ID relationship to Nicolas Inf ormation type nicolas MEDICARE [id number] SP [id number] 21 1 PPO [id number] SP [id number] PPO [id number] SP [id number] UNK UNK UNK UNK UNK UNK UNK UNK UNK PPO [id number] SP [id number] MEDICARE [id number] SP [id number] A Medicare MDA [id number] None [id number] 21 1 MEDICARE [id number] SP [id number] 21 1 UNK UNK UNK MEDICARE [id number] SP [id number] A MEDICARE [id number] SP [id number] A MEDICARE [id number] SP [id number] A MEDICARE [id number] SP [id number] A Problems, Conditions, and Diagnoses Code Display Name Description Problem Type Effective Data Sour ce(s) Dates G47.00 Insomnia, INSOMNIA, Diagnosis 10/14/2019 [place] unspecified UNSPECIFIED 06:15:00 [facility] Care [facility] I50.9 Heart failure, HEART FAILURE, Diagnosis 10/14/2019 [place] unspecified UNSPECIFIED 06:15:00 PM [facility] EDT Care Corporation J44.9 Chronic 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/14/2019 [place] obstructive OBSTRUCTIVE 06:15:00 PM [facility] pulmonary disease, PULMONARY DISEASE, EDT Care unspecified UNSPECIFIED Corporation E78.5 Hyperlipidemia, HYPERLIPIDEMIA, Diagnosis 10/14/2019 [place] unspecified UNSPECIFIED 06:15:00 PM [facility] EDT Care Corporation F03.90 Unspecified UNSPECIFIED Diagnosis 10/14/2019 [place] dementia without DEMENTIA WITHOUT 06:15:00 [facility]IORAL EDT Care disturbance DISTURBANCE Corporation 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 10/14/2019 [facility] r subacute SUBACUTE 06:15:00 PM [facility] dyskinesia DYSKINESIA EDT Care Corporation F41.1 Generalized GENERALIZED Diagnosis 10/14/2019 [place] anxiety disorder ANXIETY DISORDER 06:15:00 PM [facility] Health EDT Care Corporation F32.9 Major depressive MAJOR DEPRESSIVE Diagnosis 10/14/2019 [facility], single DISORDER, SINGLE 06:15:00 PM [employer] episode, EPISODE, EDT Care unspecified UNSPECIFIED Corporation F20.9 Schizophrenia, SCHIZOPHRENIA, Diagnosis 10/14/2019 [place] unspecified UNSPECIFIED 06:15:00 PM [facility] EDT Care Corporation R45.1 Restlessness and RESTLESSNESS AND Diagnosis 10/14/2019 [facility] agitation AGITATION 06:15:00 PM [facility] EDT Care Corporation I11.0 Hypertensive heart HYPERTENSIVE HEART Diagnosis 0 [place] disease with heart DISEASE WITH HEART 03:01:00 PM [facility] failure FAILURE EDT Care Corporation 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 10/12/2019 [place] schizophrenia SCHIZOPHRENIA 03:01:00 PM [facility] EDT Care Corporation F03.91 Unspecified UNSPECIFIED Diagnosis 10/12/2019 [place] dementia with DEMENTIA WITH 03:01:00 PM [facility] behavioral BEHAVIORAL EDT Care disturbance DISTURBANCE Corporation Z79.82 assisted CORRECTION Diagnosis 10/11/2019 [place] (current) use of (CURRENT) USE OF 01:39:00 PM C [employer] aspirin ASPIRIN EDT Care Corporation F41.9 Anxiety disorder, ANXIETY DISORDER, Diagnosis 10/11/2019 [place] unspecified UNSPECIFIED 01:39:00 PM [facility] EDT Care Corporation I20.9 Angina pectoris, ANGINA PECTORIS, Diagnosis 10/11/2019 [place] unspecified UNSPECIFIED 01:39:00 PM [facility] EDT Care Corporation I25.9 Chronic ischemic CHRONIC ISCHEMIC Diagnosis 07/26/[address] 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 07/26/2019 [place] (current) drug (CURRENT) DRUG 04:36:00 PM Count y Health therapy THERAPY EDT Care Corporation Z87.440 Personal history PERSONAL HISTORY Diagnosis 07/26/2019 [place] of urinary (tract) OF URINARY (TRACT) 04:36:00 PM [facility] infections INFECTIONS EDT Care [facility] N40.0 Benign prostatic BENIGN PROSTATIC Diagnosis 07/26/2019 [place] hyperplasia HYPERPLASIA 04:36:00 PM [facility] without lower WITHOUT LOWER EDT Care urinary tract URINRY TRACT SYMP Jose C oration symptoms G93.89 Other specified OTHER SPECIFIED Diagnosis 07/26/2019 [place] disorders of brain DISORDERS OF BRAIN 04:36:00 PM [facility] EDT Care [facility] Results ID Date Data Source [id number] 11/29/2019 07:37:00 AM EDT [facility] Name Value Range Interpretation Code Description Data Yolanda rce(s) Supporting Document(s ) SARS-CoV-2 [facility] , RNA This lab was ordered by ENIO ON THE SON and reported by [facility] ricardo plcco. ID Date Data Source [id number] 10/18/2019 12:00:00 AM EDT [facility] Name Value Range Interpretation Code Description Data Yolanda rce(s) Supporting Document(s ) 2019-nCoV [facility] RNA XXX MAULIK+probe- Imp This lab was ordered by Romero On dson and reported by [facility]. ID Date Data Source [id number] 09/16/2019 12:05:00 AM EDT [facility] Name Value Range Interpretation Description Data Sup porting Code Source(s) Document(s ) SARS [facility] CORONAVIRUS 2 RNA This lab was ordered by FRANCISCO MONROY and reported by [facility]. ID Date Data Source [id number] 07/12/2019 07:58:00 AM EST [facility] [id number] Corporation Name Value Range Interpretation Description Data Sup porting Code Source(s) Document(s ) Leukocytes 9.2 k/mm3 4.8-10 <td> 07/12/2019 [place] [#/volume] .8 08:58</td><td> County in Blood by k/mm3 WBC </td><td> Health Care Automated Corporation count 9.2
(4.8-10.8) k/mm3 </td> Hematocrit 41.1 % 40.8-4 <td> 07/12/2019 [place] [Volume 6.9 % 08:58</td><td> County Fraction] of HCT </td><td> Health Care Blood by Corporation Automated 41.1 count
(40.8-46.9) % </td> Erythrocyte 98.1 fL 80.0-9 <td> 07/12/2019 [place] mean 4.0 fL 08:58</td><td> [facility] corpuscular MCV Health Care volume </td><td><Empriv[facility] [Entitic raph volume] by styleCode="Bold Automated "> count 98.1 H </paragraph>
(80.0-94.0) fL </td> Erythrocytes 4.19 m/mm3 4.70-6 <td> 07/12/2019 [facility] r [#/volume] .10 08:58</td><td> County in Blood m/mm3 RBC Health Care </td><td><Emprivo raph styleCode="Bold "> 4.19 L </paragraph>
(4.70-6.10) m/mm3 </td> Hemoglobin 13.8 g/dL 14.0-1 <td> 07/12/2019 [place] [Mass/volume 8.0 08:58</td><td> County ] in Blood g/dL HGB Health Care </td><td><[place] raph styleCode="Bold "> 13.8 L </paragraph>
(14.0-18.0) g/dL </td> Erythrocyte 32.9 pg 27.0-3 <td> 07/12/2019 [place] mean 1.5 pg 08:58</td><td> [facility] corpuscular [facility] Care hemoglobin </td><td><Emprivo [Entitic raph mass] by styleCode="Bold Automated "> count 32.9 H </paragraph>
(27.0-31.5) pg </td> Erythrocyte 33.6 % 32.0-3 <td> 07/12/2019 [place] mean 6.0 % 08:58</td><td> [facility] corpuscular MCHC </td><td> Health Care hemoglobin Corporation concentratio 33.6 n [Mass/volume
] in Blood (32.0-36.0) % from Fetus </td> by Automated count Platelet 9.1 fL 9.8-12 <td> 07/12/2019 [place] mean volume .8 fL 08:58</td><td> County [Entitic MPV Health Care volume] in </td><td><[place] Blood by raph Automated styleCode="Bold count "> 9.1 L </paragraph>
(9.8-12.8) fL </td> Erythrocyte 13.3 % 11.5-1 <td> 07/12/2019 [place] distribution 4.5 % 08:58</td><td> County width RDW </td><td> Health Care [Entitic Corporation volume] by 13.3 Automated count
(11.5-14.5) % </td> Monocytes/Le 6.4 % 0.0-11 <td> 07/12/2019 [place] ukocytes .0 % 08:58</td><td> County [Pure number Monocytes. Health Care fraction] in </td><td> [place] Blood by Automated 6.4 count
(0.0-11.0) % </td> Basophils+Eo 2.5 % 0.0-5. <td> 07/12/2019 [place] sinophils+Mo 0 % 08:58</td><td> County nocytes Eosinophils Health Care [#/volume] </td><td> Corporation in Blood by Automated 2.5 count
(0.0-5.0) % </td> Basophils 0.3 % 0.0-2. <td> 07/12/2019 [place] [#/volume] 0 % 08:58</td><td> County in Blood by Basophils Health Care Automated </td><td> Corporation count 0.3
(0.0-2.0) % </td> Platelets 247 k/mm3 160-41 <td> 07/12/2019 [place] [#/volume] 0 08:58</td><td> County in Blood by k/mm3 Platelet Count Health Care Automated </td><td> Corporation count 247
(160-410) k/mm3 </td> Lymphocytes 22.1 % 16.0-5 <td> 07/12/2019 [place] [#/volume] 0.0 % 08:58</td><td> County in Blood by Lymphocytes Health Care Automated </td><td> Corporation count 22.1
(16.0-50.0) % </td> Schistocytes FEW <td> 07/03/2019 [place] [Presence] 12:54</td><td> County in Blood by Schistocytes Health Care Light </td><td> Corporation microscopy FEW
</td> Poikilocytos FEW <td> 07/03/2019 [place] is 12:54</td><td> County [Presence] Poikilocytosis Health Care in Blood by </td><td> Corporation Light microscopy FEW
</td> Immature 0.9 % 0.0-0. <td> 07/12/2019 [place] granulocytes 5 % 08:58</td><td> County /100 IG% Health Care leukocytes </td><td><tanya Corporation in Blood by raph Automated styleCode="Bold count "> 0.9 H </paragraph>
(0.0-0.5) %
The IG fraction represents metamyelocytes, myelocytes and/or
promyelocytes and is only reported as part of the automated
differential when found at a percentage of less than 6.
If higher than 6%, a manual differential will be performed.

(0.0-0.5) % </td> Neutrophils 67.8 % 34.0-7 <td> 07/12/2019 [place] [#] in Body 6.0 % 08:58</td><td> County fluid by Neutrophils Health Care Manual count </td><td> [place] 67.8
(34.0-76.0) % </td> Glucose 118 mg/dL 70-105 <td> 07/12/2019 [place] [Mass/volume mg/dL 08:58</td><td> County ] in Blood Glucose-Serum Health Care </td><td><tanya [place] raph styleCode="Bold "> 118 H </paragraph>
(70-105) mg/dL </td> Potassium 4.0 mEq/L 3.5-5. <td> 07/12/2019 [place] [Moles/volum 1 08:58</td><td> County e] in Serum mEq/L Potassium-Serum Health Care or Plasma </td><td> [place] 4.0
(3.5-5.1) mEq/L </td> Sodium 139 mEq/L 135-14 <td> 07/12/2019 [place] [Moles/volum 5 08:58</td><td> County e] in Serum mEq/L Sodium-Serum Health Care or Plasma </td><td> [place] 139
(135-145) mEq/L </td> Urea 15 mg/dL 6-22 <td> 07/12/2019 [place] nitrogen mg/dL 08:58</td><td> [facility] [Mass/volume BUN </td><td> Health Care ] in Blood Corporation 15
(6-22) mg/dL </td> Creatinine 1.32 mg/dL 0.72-1 <td> 07/12/2019 [place] [Moles/volum .25 08:58</td><td> County e] in Serum mg/dL Creatinine. Health Care or Plasma </td><td><tanya Corporation raph styleCode="Bold "> 1.32 H </paragraph>
(0.72-1.25) mg/dL </td> Aspartate 12 U/L 4-35 <td> 07/12/2019 [place] aminotransfe U/L 08:58</td><td> [facility] rase AST (SGOT) Health Care [Enzymatic </td><td> Corporation activity/vol ume] in 12 Serum or
Plasma (4-35) U/L </td> Carbon 27 mEq/L 22-30 <td> 07/12/2019 [place] dioxide, mEq/L 08:58</td><td> [facility] total CO2 </td><td> Health Care [Moles/volum Corporation e] in Serum 27 or Plasma
(22-30) mEq/L </td> Chloride 103 mEq/L 98-107 <td> 07/12/2019 [place] [Moles/volum mEq/L 08:58</td><td> County e] in Serum Chloride Health Care or Plasma </td><td> [place] 103
(98-107) mEq/L </td> Alanine 17 U/L 6-55 <td> 07/12/2019 [place] aminotransfe U/L 08:58</td><td> [facility] rase ALT (SGPT) Health Care [Enzymatic </td><td> Corporation activity/vol ume] in 17 Serum or
Plasma (6-55) U/L </td> Bilirubin.to 0.3 mg/dL 0.2-1. <td> 07/12/2019 [place] hansel 3 08:58</td><td> [facility] [Mass/volume mg/dL Bilirubin - Health Care ] in Blood Total Corporation </td><td> 0.3
(0.2-1.3) mg/dL </td> Albumin 3.9 g/dL 3.4-4. <td> 07/12/2019 [place] [Mass/volume 8 g/dL 08:58</td><td> [facility] ] in Serum Albumin Health Care or Plasma </td><td> [facility] 3.9
(3.4-4.8) g/dL </td> Proteins - 6.4 g/dL 6.4-8. <td> 07/12/2019 [place] Total 3 g/dL 08:58</td><td> [facility] Proteins - Health Care Total [facility] </td><td> 6.4
(6.4-8.3) g/dL </td> Calcium 9.2 mg/dL 8.6-10 <td> 07/12/2019 [place] [Mass/volume .2 08:58</td><td> [facility] ] in Blood mg/dL Calcium [facility] </td><td> [facility] 9.2
(8.6-10.2) mg/dL </td> Anion gap in 9 mEq/L 7-13 <td> 07/12/2019 [place] Serum or mEq/L 08:58</td><td> [facility] Plasma Anion Gap [facility] </td><td> [facility] 9
(7-13) mEq/L </td> Globulin 2.5 gm/dL 2.9-4. <td> 07/12/2019 [place] [Mass/volume 0 08:58</td><td> [facility] ] in Serum gm/dL Globulin Health Care </td><td><[facility] raph styleCode="Bold "> 2.5 L </paragraph>
(2.9-4.0) gm/dL </td> Hemolysis No Hemolysis <td> 07/12/2019 [place] index of 08:58</td><td> [facility] Serum or Hemolysis Index Health Care Plasma </td><td> [place] No Hemolysis
</td> Icteric Non Icteric <td> 07/12/2019 [place] index of 08:58</td><td> [facility] Serum or Icteric Index Health Care Plasma </td><td> [place] Non Icteric
</td> Lipemic No Lipemia <td> 07/12/2019 [place] index of 08:58</td><td> County Serum or Lipemia Index Health Care Plasma </td><td> Corporation No Lipemia
</td> Phosphate 2.8 mg/dL 2.3-4. <td> 07/05/2019 [place] [Mass/volume 7 09:10</td><td> County ] in Serum mg/dL Inorganic Health Care or Plasma Phosphorus Corporation </td><td> 2.8
(2.3-4.7) mg/dL </td> Appearance Clear <td> 07/04/2019 [place] of Urine 18:00</td><td> [facility] Appearance Health Care </td><td> Corporation Clear
(CLEAR) </td> Specific 1.010 {} 1.000- <td> 07/04/2019 [place] gravity of 1.035 18:00</td><td> [facility] Urine by Specific Health Care Test strip [place] </td><td> 1.010
(1.000-1.035) </td> Protein Negative <td> 07/04/2019 [place] [Presence] 18:00</td><td> County in Urine by Protein Health Care Automated Qualitative [place] test strip </td><td> Negative
(NEGATIVE) </td> Glucose Negative <td> 07/04/2019 [place] [Presence] 18:00</td><td> County in Urine by Glucose_ Health Care Test strip </td><td> Corporation Negative
(NEGATIVE) </td> Nitrite Negative <td> 07/04/2019 [place] [Presence] 18:00</td><td> County in Urine by Nitrites Health Care Test strip </td><td> Corporation Negative
(NEGATIVE) </td> Leukocyte Negative <td> 07/04/2019 [place] esterase 18:00</td><td> County [Presence] Leukocytes Health Care in Urine by Esterase [place] Test strip </td><td> Negative
(NEGATIVE) </td> Leukocyte Not Indicated <td> 07/03/2019 [facility] r esterase 12:43</td><td> [facility] [Presence] Physiochemica Urine Health Care in Urine by l tests: Microscopic. [place] Test strip Protein, </td><td> Leukocyte, Not Indicated Blood and
Nitrates are negative. Physiochemical Microscopic tests: Protein, exam not Leukocyte, performed. Blood and Nitrates are
negative. Microscopic exam not performed.

</td> Urobilinogen 0.2 mg/dL 0.0-2. <td> 07/04/2019 [place] [Presence] 0 18:00</td><td> [facility] in Urine by mg/dL Urobilinogen Prevacus Automated </td><td> [place] test strip 0.2
(0.0-2.0) mg/dL </td> Leukocytes NONE SEEN <td> 07/04/2019 [place] [Presence] 18:00</td><td> [facility] in Urine by WBC </td><td> Health Care Automated [place] NONE SEEN
(0-5) /HPF </td> Erythrocytes <1 <td> 07/04/2019 [place] [#/area] in 18:00</td><td> [facility] Urine RBC </td><td> Health Care sediment by [place] Automated <1 count
(0-2) /HPF </td> Bacteria NONE SEEN <td> 07/04/2019 [place] [#/area] in 18:00</td><td> [facility] Urine Bacteria Health Care sediment by </td><td> [place] Microscopy high power NONE SEEN field
(NONE) /HPF </td> Bacteria NONE SEEN <td> 07/04/2019 [place] [#/area] in <= FEW 18:00</td><td> [facility] Urine Epithelial Health Care sediment by Cells [place] Microscopy </td><td> high power NONE SEEN field
<= FEW

/LPF </td> Mucous RARE <= <td> 07/04/2019 [facility] r FEW 18:00</td><td> [facility] Mucous Health Care </td><td> Corporation RARE
/LPF
<= FEW

/LPF </td> Magnesium 1.9 mg/dL 1.6-2. <td> 07/05/2019 [place] [Mass/volume 6 09:10</td><td> [facility] ] in Serum mg/dL Magnesium Level Health Care or Plasma </td><td> [place] 1.9
(1.6-2.6) mg/dL </td> Cholesterol 149 mg/dL 125-24 <td> 07/05/2019 [place] [Moles/volum 0 09:10</td><td> [facility] e] in Serum mg/dL Cholesterol Health Care or Plasma </td><td> [facility] 149
(125-240) mg/dL </td> Cholesterol 51 mg/dL >60 <td> 07/05/2019 [place] in HDL mg/dL 09:10</td><td> [facility] [Mass/volume HDL Cholesterol Health Care ] in Serum </td><td> Corporation or Plasma 51
(>60) mg/dL </td> Hemoglobin 6.1 % 4.0-5. <td> 07/05/2019 [place] A1C 6 % 09:10</td><td> [facility] Hemoglobin A1C Health Care </td><td><[facility] graph styleCode="Bold "> 6.1 H </paragraph>
(4.0-5.6) %
Increased risk for diabetes mellitus is seen in patients with HgA1C values
between 5.7-6.4%. Values > or = 6.5% are considered diagnostic of diabetes
mellitus.
Hemolytic anemias, hemoglobinopath ies, or recent transfusion may impact
HbA1c results. Clinical correlation is recommended.
===
ESTIMATED AVERAGE GLUCOSE (eAG)
---
RELATIONSHIP BETWEEN A1C AND eAG
===
A1C(%) eAG(mg/dL)
6 1 26
7 1 54
8 1 83
9 2 12
10 240
11 269
12 298
Source: Adapted from [employer]. Standards of medical
care in diabetes-2014. Diabetes Care.2014;37(Arroyo pp 1):S14-S80, table 8.

(4.0-5.6) % </td> Cholesterol 76 mg/dL <150 <td> 07/05/2019 [place] in LDL mg/dL 09:10</td><td> [facility] [Mass/volume LDL Cholesterol Health Care ] in Serum </td><td> Corporation or Plasma 76
(<150) mg/dL </td> Uric Acid 6.9 mg/dL 3.5-7. <td> 07/05/2019 [place] 2 09:10</td><td> County mg/dL Uric Acid Health Care </td><td> Corporation 6.9
(3.5-7.2) mg/dL </td> Triglyceride 110 mg/dL 30-200 <td> 07/05/2019 [place] [Mass/volume mg/dL 09:10</td><td> [facility] ] in Serum Triglyceride Health Care or Plasma </td><td> Corporation 110
(30-200) mg/dL </td> ID Date Data Source [id number] 07/03/2019 10:53:00 AM EST [facility] [id number] Corporation Name Value Range Interpretation Description Data Sup porting Code Source(s) Document(s ) Head (PACSIMAGE <td> 07/03/2019 [place] Without 15:18</td><td> [facility] Contrast ) Final Head Without Health Care -CT Result Contrast-CT Corporation Name: NATHAN, </td><td><paracaed Alaniz styleCode="Italic Sex: M : s">(PACSIMAGE 1945 Location: M )</paragraph><br/ Admitting >
Final Physician: Result EMERGENCY

SERVICE Name: Rima EVANSrikki LIND Corbin Physician:
MRN: [facility] [id number] Sex: M IQBAL
Exam: CT HEAD : 1945 C- 07/03/2019 Location: 15:41
CLINICAL Admitting HISTORY: Physician: Submitted EMERGENCY SERVICE clinical
information: Requesting Altered mental Physician: status [facility] COMPARISON: RASHEED None

TECHNIQUE: Exam: CT HEAD C- Noncontrast CT 07/03/2019 15:41 scan of the head is

performed from CLINICAL the base of HISTORY: the skull to Submitted the vertex clinical utilizing axial information: image Altered mental acquisition.
Multiplanar status reformatted

images are COMPARISON: None provided. Up-to-date CT

equipment using TECHNIQUE: Automatic Noncontrast CT Exposure scan of the head Control, dose is performed from modulation, and
iterative the base of reconstruction the skull to the dose reduction vertex utilizing software was axial image employed. The acquisition. total study DLP
is Multiplanar approximately reformatted 1544.2 mGy-cm. images are FINDINGS: provided. There is no

evidence of Up-to-date CT acute equipment using intracranial Automatic hemorrhage, Exposure Control, mass effect dose or shift of the
midline modulation, and structures. iterative There is marked reconstruction ventriculomegal dose reduction y of the software lateral and
was third employed. ventricles out
The of proportion total study DLP to cerebral is approximately convexity sulci 1544.2 mGy-cm. concerning for underlying

communicating FINDINGS: hydrocephalus.

Further There is no clinical evidence of acute correlation and intracranial exclusion is hemorrhage, mass suggested. effect Partial
or opacification shift of the of the right midline maxillary sinus structures. There with intrinsic is marked hyperdensities ventriculomegaly possibly
reflecting of the lateral inspissated and third secretions ventricles out of and/or proportion to superimposed cerebral fungal disease.
Underlying convexity sulci polyp cannot be concerning for excluded. 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
present. The Further clinical mastoid air correlation and cells are exclusion is well-aerated. suggested. The visualized Partial orbits are
unremarkable. opacification of There is no the right depressed maxillary sinus calvarial with intrinsic fracture. hyperdensities IMPRESSION:
1. No CT possibly evidence of reflecting acute inspissated intracranial secretions and/or hemorrhage or superimposed midline
shift. 2. fungal disease. Marked Underlying polyp ventriculomegal cannot be y of the excluded. lateral and Intracranial third
ventricles atherosclerotic out of disease is proportion to present. The cerebral mastoid air cells convexity sulci are concerning for
underlying well-aerated. The communicating visualized orbits hydrocephalus. are unremarkable. Further There is clinical
no correlation depressed and exclusion calvarial is suggested. fracture. 3. Partial

opacification IMPRESSION: of the right

maxillary 1. No CT sinus, evidence of acute underlying intracranial polyp cannot be hemorrhage or excluded. midline Intrinsic
shift. hyperdensities may reflect

2. inspissated Marked secretions ventriculomegaly and/or of the lateral superimposed and third fungal disease. ventricles Further
out clinical of proportion to correlation is cerebral suggested. convexity sulci concerning for Resident
Radiologist: underlying Abad Zheng MD hydrocephalus. Resident Further clinical Radiologistt correlation Attending
Radiologist: and exclusion is Rut Rivera MD suggested. Finalizing

Radiologist: 3. Partial Rut Rivera MD opacification of Transcribed the right Date: maxillary sinus, 07/03/2019 underlying 15:45
Finalized Date: polyp cannot be 07/03/2019 excluded. 15:50 Intrinsic hyperdensities may reflect
inspissated secretions and/or superimposed fungal disease. Further
clinical correlation is suggested.

<b r/>

<br/ >

Resident Radiologist: Abad Zheng MD Resident Radiologistt
Attending Radiologist: Rut Rivera MD
Finalizing Radiologist: Rut Rivera MD
Transcribed Date: 07/03/2019 15:45
Finalized Date: 07/03/2019 15:50

</td> Chest PA (PACSIMAGE <td> 07/03/2019 [place] & 11:53</td><td> [facility] ) Final Chest PA & Health Care Result Lateral Corporation Name: NATHAN, </td><td><paragra LELO Alaniz ph styleCode="Italic Sex: M : s">(PACSIMAGE 1945 Location: M )</paragraph><br/ Admitting >
Final Physician: Result EMERGENCY

SERVICE Name: NATHAN, Requesting LELO Alaniz Physician:
MRN: [facility] [id number] Sex: M IQBAL
Exam: CHEST PA : 1945 AND LATERAL Location: 07/03/2019
12:53 Admitting TECHNIQUE: PA Physician: and lateral EMERGENCY SERVICE views of the
chest Requesting HISTORY:Altered Physician: mental status [facility] COMPARISON: IQBAL None available

FINDINGS: Exam: CHEST PA LUNGS AND AND LATERAL PLEURA: Low 07/03/2019 12:53 lung volumes. Clear lungs.

HEART AND TECHNIQUE: PA MEDIASTINUM: and lateral views Mild of the chest cardiomegaly.

Tortuous uncoiled aorta. HISTORY:Altered Thoracic mental status aortic stent

partially COMPARISON: visualized. None available BONES AND SOFT TISSUES:

Degenerative FINDINGS: changes of the

thoracic LUNGS AND PLEURA: spine. Low lung volumes. IMPRESSION: Clear lungs. Clear lungs
Resident HEART AND Radiologist: MEDIASTINUM: Mild Mesha Morales cardiomegaly. Resident Tortuous uncoiled Radiologistt aorta. Attending
Radiologist: Thoracic aortic Thuy stent partially Luis E EVANS visualized. Finalizing
Radiologist: BONES AND SOFT Thuy TISSUES: Luis E EVANS Degenerative Transcribed changes of the Date: thoracic 07/03/2019
14:32 spine. Finalized Date:

07/03/2019 IMPRESSION: 16:23
Clear lungs

<b r/> Resident Radiologist: Mesha Morales MD Resident Radiologistt
Attending Radiologist: Thuy Kimbrough MD
Finalizing Radiologist: Thuy Kimbrough MD
Transcribed Date: 07/03/2019 14:32
Finalized Date: 07/03/2019 16:23

</td> Procedure Social History Code Duration Value Status Description Data Source(s ) Smoking Unknown if ever completed Unknown if ever [facility] smoked smoked Peter Blueberry Vital Signs ID Date Data Source UNK Name Value Range Interpretation Code Description Data Source(s) Diastolic blood 83 {} Normal (applies to 83 {} [place] pressure non-numeric results) [facility] on Systolic blood 122 {} Normal (applies to 122 {} [place] pressure non-numeric results) Coun ty [facility] Corporati on First Respiration 17.0000 {} Normal (applies to 17.0000 {} [place] rate Set non-numeric results) Coun ty [facility] Care Corporati on Heart rate 75.0000 {} Normal (applies to 75.0000 {} [place] non-numeric results) Coun ty [facility] Corpor[facility] on Body temperature 98.2000 {} Normal (applies to 98.2000 {} [place] non-numeric results) Coun ty [facility] Care Corporati on wt - obtain Normal (applies to {} [place] non-numeric results) Coun ty [facility] Corpor[facility] on weight - kg 80.0000 {} Normal (applies to 80.0000 {} [place] non-numeric results) Coun ty [facility] Corporati on height - cm Normal (applies to {} [place] non-numeric results) Coun ty [facility] Care Corporati on Patient Treatment Plan of Care Planned Activity Planned Date Details Description Data Source (s) Flomax (Tamsulosin) 10/14/2019 09:40:04 [facility] EDT Health Care Cor poration Ativan (Lorazepam) O 10/14/2019 09:39:55 [facility] EDT Health Care Cor poration Risperidone (Risperd 10/14/2019 09:35:10 [facility] EDT Health Care Cor poration Diphenhydramine (Seamus 10/12/2019 05:05:01 [facility] EDT Health Care Cor poration Haldol (Haloperidol) 10/12/2019 05:04:53 [facility] EDT Health Care Cor poration Ativan (Lorazepam) I 10/12/2019 04:46:58 [facility] EDT Health Care Cor poration SEROquel Oral 10/12/2019 02:10:22 [facility] EDT Health Care Cor poration Clopidogrel (Plavix) 07/04/2019 09:21:41 [facility] EST Health Care Cor poration Lisinopril (Peds) Or 07/04/2019 09:21:00 [facility] EST Health Care Cor poration Prednisone (Deltason 07/04/2019 09:20:46 [facility] EST Health Care Cor poration Rosuvastatin (Cresto 07/04/2019 09:20:32 [facility] EST Health Care Cor poration Xanax (Alprazolam) 07/04/2019 09:20:23 [facility] EST Health Care Cor poration Risperidone (Risperd 07/04/2019 09:20:04 [facility] EST Health Care Cor poration Aspirin Chewable Or 07/04/2019 09:19:53 [facility] EST Health Care Cor poration Haldol (Haloperidol) 07/04/2019 09:11:06 [facility] EST Health Care Cor poration Augmentin (Amoxic 07/04/2019 09:11:05 [facility] EST Health Care Cor poration Ambien (Zolpidem) Or 07/03/2019 09:55:41 [facility] EST Health Care Cor poration Augmentin (Amoxic 07/03/2019 07:51:00 [facility] EST Health Care Cor poration
[2020-02-18 11:02] VITALS: PULSE 85
== END 2020-02-18 11:12 | disposition home or self-care (01) ==
LOC: FER 10:12
PROC: 3E0F7GC Introduction of Other Therapeutic Substance into Respiratory Tract, Via Natural or Artificial Opening (ICD-10-PCS; principal; 2020-02-18)
DX: J44.9 Chronic obstructive pulmonary disease, unspecified (principal)
CPT/HCPCS: 99283-25

== ENCOUNTER 2020-02-26 14:21 | Emergency (ER) | payer OTHER, BC ==
--- OUTSIDE RECORDS SUMMARY | 2020-02-26 14:39 | XMS ---
:1945 Author Organization [facility] Care Team Providers Name Role Phone LAWRENCE STANLEY Unavailable Unavailable EMERGENCY SERVICE, X Unavailable Unavailable NOBLEJUDITH Pinzon Unavailable Unavailable ALEX SNOW Unavailable Unavailable Garry [...] is protected by Article 27-F of the [place] Public Health law. If you continue you may haveaccess to information: Regarding HIV / AIDS; Provided by facilities licensed or operated by the [facility] Office of Mental Health; or Provided by the [facility] Office for People With Developmental Disabilities. If such information is present, then the following [facility] mandated warning applies: This information has been [...] law may result in a fine or detention sentence or both. A general authorization for the release of medical or other information is NOT sufficient authorization for further disclosure. Allergies and Adverse Reactions Type Description Substance Reaction Status Data Source(s ) To Be Determined To Be Determined [facility] ([facility]) Drug allergy No Known Drug No Known Drug [facility] Allergies Allergies [facility] Food allergy No Known Food No Known Food [facility] Allergies Allergies [facility] Drug allergy No Known Allergies No Known Allergies [facility] Encounters Encounter Providers Location Date Indications Data Source(s ) Emergency Attender: BENIGNO, 10/14/2019 [facility] are EMERGENCY SERVICE, EDT Corpor ation XAdmitter: BENIGNO, ANTONIO TRANSFER Emergency Attender: GWENDOLYN, 10/12/2019 ALTERED MENTAL [facility] SCOTTAttender: 03:01:00 PM EDT STATUS Healt [facility] EMERGENCY SERVICE, Corpor ation XAdmitter: ALXE SNOWReferrer: EMERGENCY SERVICE, X ALTERED MENTAL STATUS Emergency Attender: LIZETH, 10/11/2019 01:39:00 PYSCH EV AL [facility] JAYAttender: EMERGENCY PM EDT He [facility] Care SERVICE, XAdmitter: Corpo ration LAWRENCE STANLEY Inpatient Attender: Garry 09/20/2019 05:00:00 PM [facility]T [facility]) Admission cancelled. Disregard status an d admitted date. Inpatient Attender: BEVERLY 07/03/2019 SCHIZOPHRENIA [facility] MITCHELLAdmitter: 07:54:00 PM EST Health Care JUDITH PAUL 07/26/2019 Corporat ion 04:36:00 PM EDT SCHIZOPHRENIA Patient admitted. Emergency Attender: BEVERLY 07/03/2019 [facility] AM [facility] EMERGENCY SERVICE, Care C orporation XAdmitter: JUDITH PAUL PSYCH EVALUATION Medications Medication Brand Start Product Dose Route Administrative Pharmacy [facility] Indications Reaction Description Data Name Date Form Instructions Instructions Source(s) Flomax Flomax 10/13/ 0.4 UNK active Flomax [facility] (Tamsulosin (Tamsu 2020 mg (Tamsulosin ) r [facility] ) [facility] 09:40: Oral 0.4 mg [facility] 04 PM PO Care EDT Corporatio n Medication administered onsite Ativan Ativan 10/14/2019 1 mg UNK active Ativan [place] (Lorazepam) O (Lorazepam) O 09:39:55 PM (Lorazepam) [facility] EDT Oral 1 mg PO [facility] Medication administered onsite Risperidone Risperidone 10/14/2019 2 mg UNK active Risperidone [place] (Risperd (Risperd 09:35:10 PM (Risp erdal) [facility] EDT Oral 2 mg PO [facility] Medication administered onsite Diphenhydramine Diphenhydramine 10/12/2019 50 UNK active Diphenhydramine [place] (Seamus (Seamus 05:05:01 PM mg (Benadryl) [facility] EDT Injection 50 mg [facility] IM Corporation Medication administered onsite Haldol Haldol 10/12/2019 5 UNK active Haldol [place] (Haloperidol) (Haloperidol) 05:04:53 PM mg (Haloperidol) [facility] EDT Injection 5 mg [facility] IM Corporation Medication administered onsite Ativan Ativan 10/12/2019 2 mg UNK active Ativan [place] (Lorazepam) I (Lorazepam) I 04:46:58 PM (Lorazepam) [facility] EDT Injection 2 Health C are mg IM Corporation Medication administered onsite SEROquel SEROquel 10/12/2019 25 mg UNK active SE ROquel [place] Oral Oral 02:10:22 PM Oral 25 mg [facility] Health EDT Care Corporation Medication administered onsite Clopidogrel Clopidogrel 07/04/2019 75 UNK active Clopidogrel [place] (Plavix) (Plavix) 09:21:41 AM mg (Plav ix) [facility] Oral 75 mg Health Ca re PO Corporation Medication administered onsite Lisinopril Lisinopril 07/04/2019 2.5 UNK active Lisinopril [place] (Peds) Or (Peds) Or 09:21:00 AM MG (Pe ds) Oral [facility] Give 2.5 Health Ca re PO Corporation Medication administered onsite Prednisone Prednisone 07/04/2019 10 UNK active Prednisone [place] (Deltason (Deltason 09:20:46 AM mg (De ltasone) County EST Oral 10 mg Health Ca re PO Corporation Medication administered onsite Rosuvastatin Rosuvastatin 07/04/2019 10 UNK active Rosuvastatin [place] (Cresto (Cresto 09:20:32 AM mg (Cresto r) County EST Oral 10 mg PO [facility] Medication administered onsite Xanax Xanax 07/04/2019 1 UNK active Xanax [facility] (Alprazolam) (Alprazolam) 09:20:23 AM mg (Alprazolam) County EST Oral 1 mg PO Health Care Cytoguide Medication administered onsite Risperidone Risperidone 07/04/2019 2 mg UNK active Risperidone [place] (Risperd (Risperd 09:20:04 AM (Risp erdal) [facility] EST Oral 2 mg PO Health Care Cytoguide Medication administered onsite Aspirin Aspirin 07/04/2019 81 mg UNK active Aspi rin [place] Chewable Chewable 09:19:53 AM Chewa ble [facility] Or Or EST Oral 81 mg Care PO Corporation Medication administered onsite Haldol Haldol 07/04/2019 2 UNK active Haldol [place] (Haloperidol) (Haloperidol) 09:11:06 AM mg (Haloperidol) [facility] EST Oral 2 mg PO Health Care Cytoguide Medication administered onsite Augmentin Augmentin 07/04/2019 875 UNK active A ugmentin [place] (Amoxic (Amoxic 09:11:05 AM mg (Amoxic [facility] Clavulanate) Corpora tion Oral 875 mg PO Medication administered onsite Ambien Ambien 07/03/2019 5 mg UNK active Ambien [place] (Zolpidem) (Zolpidem) 09:55:41 PM ( Zolpidem) [facility] Or Or EST Oral 5 mg PO Health Care Cytoguide Medication administered onsite Augmentin Augmentin 07/03/2019 875 UNK active A ugmentin [place] (Amoxic (Amoxic 07:51:00 PM mg ([facility]) Corpora tion Oral 875 mg PO Medication administered onsite Insurance Providers Payer name Policy type Policy ID Covered Covered constitution party's Policy P salina / Coverage constitution party ID relationship to Nicolas Inf ormation type nicolas MEDICARE [id number] SP [id number] 21 1 PPO [id number] SP [id number] PPO [id number] SP [id number] UNK UNK UNK UNK UNK UNK UNK UNK UNK BC PPO [id number] SP [id number] MEDICARE [id number] SP [id number] A Medicare MDA [id number] None [id number] 21 1 MEDICARE [id number] SP [id number] 21 1 UNK UNK UNK MEDICARE [id number] SP [id number] A MEDICARE [id number] SP [id number] A MEDICARE [id number] SP [id number] A MEDICARE [id number] SP [id number] A Problems, Conditions, and Diagnoses Code Display Name Description Problem Type Effective Data Sour ce(s) Dates G47.00 Insomnia, INSOMNIA, Diagnosis 10/14/2019 [place] unspecified UNSPECIFIED 06:15:00 PM [facility] EDT Care Corporation I50.9 Heart failure, HEART FAILURE, Diagnosis 10/14/2019 [facility] unspecified UNSPECIFIED 06:15:00 PM [facility] EDT Care Corporation J44.9 Chronic 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/14/2019 [place] obstructive OBSTRUCTIVE 06:15:00 [facility] pulmonary disease, PULMONARY DISEASE, EDT Care unspecified UNSPECIFIED Corporation E78.5 Hyperlipidemia, HYPERLIPIDEMIA, Diagnosis 10/14/2019 [place] unspecified UNSPECIFIED 06:15:00 PM [facility] EDT Care Corporation F03.90 Unspecified UNSPECIFIED Diagnosis 10/14/2019 [place] dementia without DEMENTIA WITHOUT 06:15:00 PM [place] [facility] EDT Care disturbance DISTURBANCE Corporation 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 10/14/2019 [facility] r subacute SUBACUTE 06:15:00 PM [facility] dyskinesia DYSKINESIA EDT Care Corporation F41.1 Generalized GENERALIZED Diagnosis 10/14/2019 [place] anxiety disorder ANXIETY DISORDER 06:15:00 PM [facility] EDT Care Corporation F32.9 Major depressive MAJOR DEPRESSIVE Diagnosis 10/14/2019 [facility] disorder, single DISORDER, SINGLE 06:15:00 PM C [facility] episode, EPISODE, EDT Care unspecified UNSPECIFIED Corporation F20.9 Schizophrenia, SCHIZOPHRENIA, Diagnosis 10/14/2019 [facility] unspecified UNSPECIFIED 06:15:00 PM [facility] EDT Care Corporation R45.1 Restlessness and RESTLESSNESS AND Diagnosis 10/14/2019 [place] agitation AGITATION 06:15:00 PM [facility] EDT Care Corporation I11.0 Hypertensive heart HYPERTENSIVE HEART Diagnosis 0 [place] disease with heart DISEASE WITH HEART 03:01:00 PM [facility] failure FAILURE EDT Care Corporation 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 10/12/2019 [place] schizophrenia SCHIZOPHRENIA 03:01:00 PM [facility] EDT Care Corporation F03.91 Unspecified UNSPECIFIED Diagnosis 10/12/2019 [place] dementia with DEMENTIA WITH 03:01:00 PM [facility] behavioral BEHAVIORAL EDT Care disturbance DISTURBANCE Corporation 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 [place] (current) use of (CURRENT) USE OF 01:39:00 PM eigital aspirin ASPIRIN EDT Care Corporation F41.9 Anxiety disorder, ANXIETY DISORDER, Diagnosis 10/11/2019 [place] unspecified UNSPECIFIED 01:39:00 PM [facility] EDT Care Corporation I20.9 Angina pectoris, ANGINA PECTORIS, Diagnosis 10/11/2019 [place] unspecified UNSPECIFIED 01:39:00 PM [facility] EDT Care Corporation I25.9 Chronic ischemic CHRONIC ISCHEMIC Diagnosis 07/26/2019 [place]ia heart disease, HEART DISEASE, 04:36:00 PM [facility] unspecified UNSPECIFIED EDT Care Corporation Z87.891 Personal history PERSONAL HISTORY Diagnosis 07/26/2019 [place] of nicotine OF NICOTINE 04:36:00 PM [facility] dependence DEPENDENCE EDT Care Corporation Z79.899 Other mcc OTHER 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 Diagnosis 07/26/2019 [place] (current) drug (CURRENT) DRUG 04:36:00 PM [facility] Health therapy THERAPY EDT Care Corporation Z87.440 Personal history PERSONAL HISTORY Diagnosis 07/26/2019 [place] of urinary (tract) OF URINARY (TRACT) 04:36:00 PM [facility] infections INFECTIONS EDT Care Corporation N40.0 Benign prostatic BENIGN PROSTATIC Diagnosis 07/26/2019 [place] hyperplasia HYPERPLASIA 04:36:00 PM [facility] without lower WITHOUT LOWER EDT Care urinary tract URINRY TRACT SYMP Jose C oration symptoms G93.89 Other specified OTHER SPECIFIED Diagnosis 07/26/2019 [place] disorders of brain DISORDERS OF BRAIN 04:36:00 PM [facility] EDT Care Cytoguide Results ID Date Data Source [id number] 11/29/2019 07:37:00 AM EDT [facility] Name Value Range Interpretation Code Description Data Yolanda rce(s) Supporting Document(s ) SARS-CoV-2 [facility] , RNA This lab was ordered by ENIO ON THE HU SON and reported by [facility]. ID Date Data Source [id number] 10/18/2019 12:00:00 AM EDT [facility] Name Value Range Interpretation Code Description Data Yolanda rce(s) Supporting Document(s ) 2019-nCoV [facility] RNA XXX MAULIK+probe- Imp This lab was ordered by Romero On dson and reported by [employer]. ID Date Data Source [id number] 09/16/2019 12:05:00 AM EDT [facility] Name Value Range Interpretation Description Data Sup porting Code Source(s) Document(s ) SARS [facility] CORONAVIRUS 2 RNA This lab was ordered by FRANCISCO marion [facility] and reported by [facility]. ID Date Data Source [id number] 07/12/2019 07:58:00 AM [facility] [id number] Corporation Name Value Range Interpretation Description Data Sup porting Code Source(s) Document(s ) Leukocytes 9.2 k/mm3 4.8-10 <td> 07/12/2019 [place] [#/volume] .8 08:58</td><td> [place] in Blood by k/mm3 WBC </td><td> Health Care Automated Corporation count 9.2
(4.8-10.8) k/mm3 </td> Hematocrit 41.1 % 40.8-4 <td> 07/12/2019 [place] [Volume 6.9 % 08:58</td><td> County Fraction] of HCT </td><td> Health Care Blood by Corporation Automated 41.1 count
(40.8-46.9) % </td> Erythrocyte 98.1 fL 80.0-9 <td> 07/12/2019 [place] mean 4.0 fL 08:58</td><td> [facility] corpuscular MCV Health Care volume </td><td><NodeFly [Entitic raph volume] by styleCode="Bold Automated "> count 98.1 H </paragraph>
(80.0-94.0) fL </td> Erythrocytes 4.19 m/mm3 4.70-6 <td> 07/12/2019 [facility] r [#/volume] .10 08:58</td><td> [place] in Blood m/mm3 RBC Health Care </td><td><[employer]Fly raph styleCode="Bold "> 4.19 L </paragraph>
(4.70-6.10) m/mm3 </td> Hemoglobin 13.8 g/dL 14.0-1 <td> 07/12/2019 [place] [Mass/volume 8.0 08:58</td><td> County ] in Blood g/dL HGB Health Care </td><td><NodeFly raph styleCode="Bold "> 13.8 L </paragraph>
(14.0-18.0) g/dL </td> Erythrocyte 32.9 pg 27.0-3 <td> 07/12/2019 [place] mean 1.5 pg 08:58</td><td> [facility] corpuscular [facility]CH Health Care hemoglobin </td><td><NodeFly [Entitic raph mass] by styleCode="Bold Automated "> count 32.9 H </paragraph>
(27.0-31.5) pg </td> Erythrocyte 33.6 % 32.0-3 <td> 07/12/2019 [place] mean 6.0 % 08:58</td><td> [facility] corpuscular MCHC </td><td> Health Care hemoglobin Corporation concentratio 33.6 n [Mass/volume
] in Blood (32.0-36.0) % from Fetus </td> by Automated count Platelet 9.1 fL 9.8-12 <td> 07/12/2019 [place] mean volume .8 fL 08:58</td><td> [place] [Entitic MPV Health Care volume] in </td><td><tanya Corporation Blood by raph Automated styleCode="Bold count "> 9.1 L </paragraph>
(9.8-12.8) fL </td> Erythrocyte 13.3 % 11.5-1 <td> 07/12/2019 [place] distribution 4.5 % 08:58</td><td> [place] width RDW </td><td> Health Care [Entitic Corporation volume] by 13.3 Automated count
(11.5-14.5) % </td> Monocytes/Le 6.4 % 0.0-11 <td> 07/12/2019 [place] ukocytes .0 % 08:58</td><td> [place] [Pure number Monocytes. Health Care fraction] in </td><td> Cytoguide Blood by Automated 6.4 count
(0.0-11.0) % </td> Basophils+Eo 2.5 % 0.0-5. <td> 07/12/2019 [place] sinophils+Mo 0 % 08:58</td><td> [place] nocytes Eosinophils Health Care [#/volume] </td><td> Corporation in Blood by Automated 2.5 count
(0.0-5.0) % </td> Basophils 0.3 % 0.0-2. <td> 07/12/2019 [place] [#/volume] 0 % 08:58</td><td> [place] in Blood by Basophils Health Care Automated </td><td> Corporation count 0.3
(0.0-2.0) % </td> Platelets 247 k/mm3 160-41 <td> 07/12/2019 [place] [#/volume] 0 08:58</td><td> [place] in Blood by k/mm3 Platelet Count Health Care Automated </td><td> Corporation count 247
(160-410) k/mm3 </td> Lymphocytes 22.1 % 16.0-5 <td> 07/12/2019 [place] [#/volume] 0.0 % 08:58</td><td> [place] in Blood by Lymphocytes Health Care Automated </td><td> Corporation count 22.1
(16.0-50.0) % </td> Schistocytes FEW <td> 07/03/2019 [place] [Presence] 12:54</td><td> [place] in Blood by Schistocytes Health Care Light </td><td> Corporation microscopy FEW
</td> Poikilocytos FEW <td> 07/03/2019 [place] is 12:54</td><td> [facility] [Presence] Poikilocytosis Health Care in Blood by </td><td> Corporation Light microscopy FEW
</td> Immature 0.9 % 0.0-0. <td> 07/12/2019 [place] granulocytes 5 % 08:58</td><td> County /100 IG% [...] </td> Neutrophils 67.8 % 34.0-7 <td> 07/12/2019 [place] [#] in Body 6.0 % 08:58</td><td> [facility] fluid by Neutrophils Health Care Manual count </td><td> Corporation 67.8
(34.0-76.0) % </td> Glucose 118 mg/dL 70-105 <td> 07/12/2019 [place] [Mass/volume mg/dL 08:58</td><td> County ] in Blood Glucose-Serum Health Care </td><td><tanya Cytoguide raph styleCode="Bold "> 118 H </paragraph>
(70-105) mg/dL </td> Potassium 4.0 mEq/L 3.5-5. <td> 07/12/2019 [place] [Moles/volum 1 08:58</td><td> [facility] e] in Serum mEq/L Potassium-Serum Health Care or Plasma </td><td> Corporation 4.0
(3.5-5.1) mEq/L </td> Sodium 139 mEq/L 135-14 <td> 07/12/2019 [place] [Moles/volum 5 08:58</td><td> [facility] e] in Serum mEq/L Sodium-Serum Health Care or Plasma </td><td> Corporation 139
(135-145) mEq/L </td> Urea 15 mg/dL 6-22 <td> 07/12/2019 [place] nitrogen mg/dL 08:58</td><td> [facility] [Mass/volume BUN </td><td> Health Care ] in Blood Corporation 15
(6-22) mg/dL </td> Creatinine 1.32 mg/dL 0.72-1 <td> 07/12/2019 [place] [Moles/volum .25 08:58</td><td> [facility] e] in Serum mg/dL Creatinine. Health Care or Plasma </td><td><tanya Corporation raph styleCode="Bold "> 1.32 H </paragraph>
(0.72-1.25) mg/dL </td> Aspartate 12 U/L 4-35 <td> 07/12/2019 [place] aminotransfe U/L 08:58</td><td> [facility] rase AST (SGOT) Health Care [Enzymatic </td><td> Corporation activity/vol ume] in 12 Serum or
Plasma (4-35) U/L </td> Carbon 27 mEq/L 22-30 <td> 07/12/2019 [place] dioxide, mEq/L 08:58</td><td> [facility] total CO2 </td><td> Health Care [Moles/volum Corporation e] in Serum 27 or Plasma
(22-30) mEq/L </td> Chloride 103 mEq/L 98-107 <td> 07/12/2019 [place] [Moles/volum mEq/L 08:58</td><td> [facility] e] in Serum Chloride Health Care or Plasma </td><td> Cytoguide 103
(98-107) mEq/L </td> Alanine 17 U/L 6-55 <td> 07/12/2019 [place] aminotransfe U/L 08:58</td><td> [facility] rase ALT (SGPT) Health Care [Enzymatic </td><td> Corporation activity/vol ume] in 17 Serum or
Plasma (6-55) U/L </td> Bilirubin.to 0.3 mg/dL 0.2-1. <td> 07/12/2019 [place] hansel 3 08:58</td><td> [facility] [Mass/volume mg/dL Bilirubin - Health Care ] in Blood Total Cytoguide </td><td> 0.3
(0.2-1.3) mg/dL </td> Albumin 3.9 g/dL 3.4-4. <td> 07/12/2019 [place] [Mass/volume 8 g/dL 08:58</td><td> [facility] ] in Serum Albumin Health Care or Plasma </td><td> Cytoguide 3.9
(3.4-4.8) g/dL </td> Proteins - 6.4 g/dL 6.4-8. <td> 07/12/2019 [place] Total 3 g/dL 08:58</td><td> [facility] Proteins - Health Care Total Cytoguide </td><td> 6.4
(6.4-8.3) g/dL </td> Calcium 9.2 mg/dL 8.6-10 <td> 07/12/2019 [place] [Mass/volume .2 08:58</td><td> [facility] ] in Blood mg/dL Calcium Health Care </td><td> Cytoguide 9.2
(8.6-10.2) mg/dL </td> Anion gap in 9 mEq/L 7-13 <td> 07/12/2019 [place] Serum or mEq/L 08:58</td><td> [facility] Plasma Anion Gap Health Care </td><td> Cytoguide 9
(7-13) mEq/L </td> Globulin 2.5 gm/dL 2.9-4. <td> 07/12/2019 [place] [Mass/volume 0 08:58</td><td> [facility] ] in Serum gm/dL Globulin Health Care </td><td><tanya Cytoguide raph styleCode="Bold "> 2.5 L </paragraph>
(2.9-4.0) gm/dL </td> Hemolysis No Hemolysis <td> 07/12/2019 [place] index of 08:58</td><td> [facility] Serum or Hemolysis Index Health Care Plasma </td><td> Cytoguide No Hemolysis
</td> Icteric Non Icteric <td> 07/12/2019 [place] index of 08:58</td><td> [facility] Serum or Icteric Index Health Care Plasma </td><td> Cytoguide Non Icteric
</td> Lipemic No Lipemia <td> 07/12/2019 [place] index of 08:58</td><td> [facility] Serum or Lipemia Index Health Care Plasma </td><td> Cytoguide No Lipemia
</td> Phosphate 2.8 mg/dL 2.3-4. <td> 07/05/2019 [place] [Mass/volume 7 09:10</td><td> [facility] ] in Serum mg/dL Inorganic Health Care or Plasma Phosphorus Cytoguide </td><td> 2.8
(2.3-4.7) mg/dL </td> Appearance Clear <td> 07/04/2019 [place] of Urine 18:00</td><td> [facility] Appearance Health Care </td><td> Cytoguide Clear
(CLEAR) </td> Specific 1.010 {} 1.000- <td> 07/04/2019 [place] gravity of 1.035 18:00</td><td> [facility] Urine by Specific Health Care Test strip [place] Cytoguide </td><td> 1.010
(1.000-1.035) </td> Protein Negative <td> 07/04/2019 [place] [Presence] 18:00</td><td> County in Urine by Protein Health Care Automated Qualitative Corporation test strip </td><td> Negative
(NEGATIVE) </td> Glucose Negative <td> 07/04/2019 [place] [Presence] 18:00</td><td> County in Urine by Glucose_ Health Care Test strip </td><td> Corporation Negative
(NEGATIVE) </td> Nitrite Negative <td> 07/04/2019 [place] [Presence] 18:00</td><td> County in Urine by Nitrites Health Care Test strip </td><td> Corporation Negative
(NEGATIVE) </td> Leukocyte Negative <td> 07/04/2019 [place] esterase 18:00</td><td> County [Presence] Leukocytes Health Care in Urine by Esterase Cytoguide Test strip </td><td> Negative
(NEGATIVE) </td> Leukocyte Not Indicated <td> 07/03/2019 [facility] r esterase 12:43</td><td> County [Presence] Physiochemica Urine Health Care in Urine by l tests: Microscopic. Cytoguide Test strip Protein, </td><td> Leukocyte, Not Indicated Blood and
Nitrates are negative. Physiochemical Microscopic tests: Protein, exam not Leukocyte, performed. Blood and Nitrates are
negative. Microscopic exam not performed.

</td> Urobilinogen 0.2 mg/dL 0.0-2. <td> 07/04/2019 [place] [Presence] 0 18:00</td><td> [place] in Urine by mg/dL Urobilinogen [employer] Care Automated </td><td> Corporation test strip 0.2
(0.0-2.0) mg/dL </td> Leukocytes NONE SEEN <td> 07/04/2019 [place] [Presence] 18:00</td><td> [place] in Urine by WBC </td><td> [employer] Care Automated Corporation NONE SEEN
(0-5) /HPF </td> Erythrocytes <1 <td> 07/04/2019 [place] [#/area] in 18:00</td><td> [facility] Urine RBC </td><td> Health Care sediment by Cytoguide Automated <1 count
(0-2) /HPF </td> Bacteria NONE SEEN <td> 07/04/2019 [place] [#/area] in 18:00</td><td> [facility] Urine Bacteria Health Care sediment by </td><td> Cytoguide Microscopy high power NONE SEEN field
(NONE) /HPF </td> Bacteria NONE SEEN <td> 07/04/2019 [place] [#/area] in <= FEW 18:00</td><td> [facility] Urine Epithelial Health Care sediment by Cells Cytoguide Microscopy </td><td> high power NONE SEEN field
<= FEW

/LPF </td> Mucous RARE <= <td> 07/04/2019 [facility] r FEW 18:00</td><td> [facility] Mucous Health Care </td><td> Corporation RARE
/LPF
<= FEW

/LPF </td> Magnesium 1.9 mg/dL 1.6-2. <td> 07/05/2019 [place] [Mass/volume 6 09:10</td><td> County ] in Serum mg/dL Magnesium Level Health Care or Plasma </td><td> Corporation 1.9
(1.6-2.6) mg/dL </td> Cholesterol 149 mg/dL 125-24 <td> 07/05/2019 [place] [Moles/volum 0 09:10</td><td> County e] in Serum mg/dL Cholesterol Health Care or Plasma </td><td> Corporation 149
(125-240) mg/dL </td> Cholesterol 51 mg/dL >60 <td> 07/05/2019 [place] in HDL mg/dL 09:10</td><td> [facility] [Mass/volume HDL Cholesterol Health Care ] in Serum </td><td> Cytoguide or Plasma 51
(>60) mg/dL </td> Hemoglobin 6.1 % 4.0-5. <td> 07/05/2019 [place] A1C 6 % 09:10</td><td> [facility] Hemoglobin A1C [facility] </td><td><para Corporation graph styleCode="Bold "> 6.1 H </paragraph>
(4.0-5.6) [...]
11 269
12 298
Source: Adapted from [place] [employer]. Standards of medical
care in diabetes-2014. Diabetes Care.2014;37(Arroyo pp 1):S14-S80, table 8.

(4.0-5.6) % </td> Cholesterol 76 mg/dL <150 <td> 07/05/2019 [place] in LDL mg/dL 09:10</td><td> County [Mass/volume LDL Cholesterol Health Care ] in Serum </td><td> Corporation or Plasma 76
(<150) mg/dL </td> Uric Acid 6.9 mg/dL 3.5-7. <td> 07/05/2019 [place] 2 09:10</td><td> County mg/dL Uric Acid Health Care </td><td> Corporation 6.9
(3.5-7.2) mg/dL </td> Triglyceride 110 mg/dL 30-200 <td> 07/05/2019 [place] [Mass/volume mg/dL 09:10</td><td> [facility] ] in Serum Triglyceride Health Care or Plasma </td><td> Corporation 110
(30-200) mg/dL </td> ID Date Data Source [id number] 07/03/2019 10:53:00 AM [facility] [id number] Corporation Name Value Range Interpretation Description Data Sup porting Code Source(s) Document(s ) Head (PACSIMAGE <td> 07/03/2019 [place] Without 15:18</td><td> County Contrast ) Final Head Without Health Care -CT Result Contrast-CT Corporation Name: NATHAN </td><td><paracade Alaniz ph styleCode="Italic Sex: M : s">(PACSIMAGE 1945 Location: M )</paragraph><br/ Admitting >
Final Physician: Result EMERGENCY

SERVICE Name: Rima EVANSing LELO Alaniz Physician:
MRN: [facility] [id number] Sex: M IQBAL
Exam: CT HEAD : 1945 C- 07/03/2019 Location: M 15:41
CLINICAL Admitting HISTORY: Physician: Submitted EMERGENCY SERVICE clinical
information: Requesting Altered mental Physician: status [facility] COMPARISON: IQBAL None

TECHNIQUE: Exam: CT HEAD C- Noncontrast [...] 15:50

</td> Chest PA (PACSIMAGE <td> 07/03/2019 [place] & 11:53</td><td> Counts Include [facility] B[facility] At [facility] ) Final Chest PA & Health Care Result [employer] Name: NATHAN, </td><td><paragra LELO Alaniz ph styleCode="Italic Sex: M : s">(PACSIMAGE 1945 Location: )</paragraph><br/ Admitting >
Final Physician: Result EMERGENCY

SERVICE Name: NATHAN, Requesting LELO Alaniz Physician:
MRN: [facility] [id number] Sex: M IQBAL
Exam: CHEST PA : [...]
Resident HEART AND Radiologist: MEDIASTINUM: Mild Mesha [place] cardiomegaly. MD Resident Tortuous uncoiled Radiologistt aorta. Attending
Radiologist: [...] 14:32
Finalized Date: 07/03/2019 16:23

</td> Procedure Vital Signs ID Date Data Source UNK Name Value Range Interpretation Code Description Data Source(s) Diastolic blood 83 {} Normal (applies to 83 {} [facility] pressure non-numeric results) Coun ty [facility] Corpor[facility] on Systolic blood 122 {} Normal (applies to 122 {} [place] pressure non-numeric results) Coun ty [facility] Corpor[facility] on First Respiration 17.0000 {} Normal (applies to 17.0000 {} [place] rate Set non-numeric results) Coun ty [facility] Corpor[facility] on Heart rate 75.0000 {} Normal (applies to 75.0000 {} [place] [facility] non-numeric results) Coun ty [facility] on Body temperature 98.2000 {} Normal (applies to 98.2000 {} [place] non-numeric results) Coun ty [facility] Care Corporati on wt - obtain Normal (applies to {} [facility] non-numeric [...] Data Source (s) Flomax (Tamsulosin) 10/14/2019 09:40:04 [facility] EDT Health Care Cor poration Ativan (Lorazepam) O 10/14/2019 09:39:55 [facility] EDT Health Care Cor poration Risperidone (Risperd 10/14/2019 09:35:10 [facility] EDT Health Care Cor poration Diphenhydramine (Seamus 10/12/2019 05:05:01 [facility] PM EDT Health Care Cor poration Haldol (Haloperidol) 10/12/2019 05:04:53 [facility] EDT Health Care Cor poration Ativan (Lorazepam) I 10/12/2019 04:46:58 [facility] EDT Health Care Cor poration SEROquel Oral 10/12/2019 02:10:22 [facility] PM EDT Health Care Cor poration Clopidogrel (Plavix) 07/04/2019 09:21:41 [facility] EST Health Care Cor poration Lisinopril (Peds) Or 07/04/2019 09:21:00 [facility] EST Health Care Cor poration Prednisone (Deltason 07/04/2019 09:20:46 [facility] EST Health Care Cor poration Rosuvastatin (Cresto 07/04/2019 09:20:32 [facility] EST Health Care Cor poration Xanax (Alprazolam) 07/04/2019 09:20:23 [facility] AM EST Health Care Cor poration Risperidone (Risperd 07/04/2019 09:20:04 [facility] AM EST Health Care Cor poration Aspirin Chewable Or 07/04/2019 09:19:53 [facility] EST Health Care Cor poration Haldol (Haloperidol) 07/04/2019 09:11:06 [facility] AM EST Health Care Cor poration Augmentin (Amoxic 07/04/2019 09:11:05 [facility] AM EST Health Care Cor poration Ambien (Zolpidem) Or 07/03/2019 09:55:41 [facility] EST Health Care Cor poration Augmentin (Amoxic 07/03/2019 07:51:00 [facility] PM EST Health Care Cor poration
[2020-02-26 14:57] VITALS: TEMP 98.3; BMI 25.6
--- NOTE | 2020-02-26 14:57 | PDOC ---
History of Present Illness - General Chief Complaint: Shortness of Breath Stated Complaint: sob Time Seen by Provider: 02/26/20 14:27 History Source: Patient Exam Limitations: No Limitations - History of Present Illness Initial Comments: 02/26/20 14:58 74 yo M PMH HTN, HLD, CAD, UT s/p stents, COPD, HFpEF, AAA repair with stent, chronic hyponatremia, paranoid schizophrenia, tardive dyskinesia, dementia, and anxiety/depression, presenting with shortness of breath and inability to walk per the certified nursing attendant. When I asked the patient if he has symptomatic complaints, he denies. Per the aide, he was unable to walk today. The patient denies the following: fevers, chills, SOB, chest pain, nausea, vomiting, dysuria, hematuria, diarrhea, and leg pain/swelling. Past History - Medical History Allergies/Adverse Reactions: Allergies Allergy/AdvReac Type Severity Reaction Status Date / Time No Known Allergies Allergy Verified 02/26/20 16:34 Home Medications: Ambulatory Orders Lisinopril 10 mg PO DAILY 10/28/16 Clopidogrel Bisulfate [Plavix -] 75 mg PO DAILY 04/23/17 Tiotropium Col[place] [Spiriva] 2 inh IH DAILY #30 cap.w.dev 01/22/18 Aspirin [ASA -] 81 mg PO DAILY 01/28/19 Risperidone 2 mg PO BID 01/28/19 Rosuvastatin Calcium [Crestor] 10 mg PO DAILY 06/13/19 Tamsulosin HCl 0.4 mg PO DAILY 06/13/19 Zolpidem Tartrate 10 mg PO HS 06/13/19 Alprazolam 1 mg PO BID 06/17/19 Bupropion HCl [Wellbutrin Xl] 1 tab PO DAILY 06/17/19 Budesonide/Formeterol Fumarate [SYMBICORT 160/4.5mcg -] 1 inh IN DAILY 09/04/19 Fenofibrate Nanocrystallized [Fenofibrate] 48 mg PO DAILY 09/04/19 Albuterol 0.083% Nebulizer Aletha [Ventolin 0.083% Nebulizer Soln -] 1 neb NEB Q6H PRN #30 vial 02/18/20 Albuterol Sulfate Inhaler - [Ventolin HFA Inhaler -] 1 - 2 inh PO QID PRN #1 inhaler 02/18/20 Nebulizer [Aeroeclipse II] 1 each 1XPACU #1 each 02/18/20 Anemia: No Asthma: No Cancer: No Cardiac Disorders: Yes (cardiac [id number], history of UT 2005) CVA: No COPD: Yes CHF: No DVT: No Dementia: Yes (FORGETFUL) Diabetes: No GI Disorders: Yes (HEARTBURN) Disorders: No HTN: Yes Hypercholesterolemia: Yes Liver Disease: No Psychiatric Problems: Yes Seizures: No Thyroid Disease: No - Surgical History Abdominal Surgery: Yes (AAA 02/03/2017) Appendectomy: No Cardiac Surgery: Yes (cardiac stent 2005 & 04/2017) Cholecystectomy: No Lung Surgery: No Neurologic Surgery: No Orthopedic Surgery: No - Immunization History Td Vaccination: Yes TDAP Vaccination: Yes Immunization Up to Date: Yes - Psycho-Social/Smoking History Smoking Status: No Smoking History: Former smoker Have you smoked in the past 12 months: No Number of Cigarettes Smoked Daily: 0 If you are a former smoker, when did you quit?: 14 YEARS Review of Systems - Review of Systems Able to Perform ROS?: Yes Is the patient limited Kiswahili proficient: No Constitutional: No: Chills, Fever HEENTM: No: Throat Pain Respiratory: No: Cough, Shortness of Breath Cardiac (ROS): No: Chest Pain, Lightheadedness, Palpitations ABD/GI: No: Diarrhea, Nausea, Vomiting : No: Dysuria Musculoskeletal: No: Back Pain Integumentary: No: Rash Neurological: No: Headache Hematologic/Lymphatic: No: Anemia *Physical Exam - Physical Exam General Appearance: Yes: Nourished, Appropriately Dressed. No: Apparent Distress, Intoxicated HEENT: positive: EOMI, CHARAN, Normal Voice, Symmetrical, Hearing Grossly Normal, Other (dry mucous membranes) Neck: positive: Trachea midline, Supple. negative: Tender, Lymphadenopathy (R), Lymphadenopathy (L) Respiratory/Chest: positive: Lungs Clear, Normal Breath Sounds, Other (saturating 96% on RA ). negative: Chest Tender, Respiratory Distress, Accessory Muscle Use Cardiovascular: positive: Regular Rhythm, Regular Rate, S1, S2, Systolic Murmur (grade 1) Discharge - Discharge Information Problems reviewed: Yes Clinical Impression/Diagnosis: Anxiety Condition: Stable Disposition: HOME - Admission No - Follow up/Referral Referrals: [facility] [place] [place] [facility] [place] [Provider Group] - 3 days - Patient Discharge Instructions Additional Instructions: You were seen in the emergency department for the evaluation of your inability to walk and shortness of breath per your aide. You saturated well on room air and you were able to walk in the emergency department, If you have worsening symptoms or new concerning symptoms, please proceed back to the emergency department immediately., Please follow up with your primary medical doctor within 1 week after discharge for follow up care and management. Thank you. - Post Discharge Activity
--- NOTE | 2020-02-26 16:52 | PDOC ---
Attending Attestation - Resident Resident Name: Gustavo Zaragoza - ED Attending Attestation I have performed the following: I have examined & evaluated the patient, The case was reviewed & discussed with the resident, I agree w/resident's findings & plan, Exceptions are as noted - HPI HPI: 02/26/20 16:49 Patient currently is treated in the emergency room for various complaints, and although he has a complicated medical history, he has rarely physically ill. Today he was admitted to the emergency department after his home helper thought he was short of breath. He denies chest pain or shortness of breath, saying only that he "does not want to walk". As to why he does not want to walk, he is not forthcoming. But he denies lower extremity numbness tingling pain or weakness. - Physicial Exam PE: 02/26/20 17:27 Physical exam reveals normal vital signs Although he has significant paranoid schizophrenia, tardive dyskinesia, and dementia, his condition appears unchanged from prior visits. There are no new abnormalities discovered on complete physical exam by medical surgery nurse or myself. He was ambulated and appears to be walking without difficulty. Dr. Zaragoza talked at length with the family and they will observe the patient and return if there are further concerns. - Medical Decision Making 02/26/20 17:29 Assessment: No acute physical disease. Psychological instability Plan: Reassure. Return home. Follow-up primary physician or return to ER if further symptoms. Ambulatory and in no distress at discharge. Discharge - Discharge Information Problems reviewed: Yes Clinical Impression/Diagnosis: Anxiety Condition: Stable Disposition: HOME - Admission No - Follow up/Referral Referrals: [facility] [place] [facility] [place] [Provider Group] - 3 days - Patient Discharge Instructions Additional Instructions: You were seen in the emergency department for the evaluation of your inability to walk and shortness of breath per your aide. You saturated well on room air and you were able to walk in the emergency department, If you have worsening symptoms or new concerning symptoms, please proceed back to the emergency department immediately., Please follow up with your primary medical doctor within 1 week after discharge for follow up care and management. Thank you. - Post Discharge Activity
[2020-02-26 16:54] VITALS: BP 135/86; PULSE 88
== END 2020-02-26 16:56 | disposition home or self-care (01) ==
LOC: FER 14:21
DX: F41.9 Anxiety disorder, unspecified (principal)
CPT/HCPCS: 99283-25

== ENCOUNTER 2020-05-08 12:30 | Inpatient (IN) | payer OTHER, BC ==
[2020-05-08] MEDS ORDERED: methylPREDNISolone NA SUCC 125 MG/2 ML VIAL IVPUSH ONE (13:22)
[2020-05-08 13:57] LABS: BASO % 2.8 % (0-2.0); EOS % 1.6 % (0-4.5); HEMOGLOBIN 13.5 GM/dl (11.7-16.9); LYMPH % 9.2 % (8-40); MCH 31.7 pg (25.7-33.7); MCHC 32.3 g/dl (32.0-35.9); MEAN CELL VOLUME 98.1 fl (80-96); MEAN PLT VOLUME 7.7 fl (7.5-11.1); MONO % 7.5 % (3.8-10.2); NEUT % 78.9 % (42.8-82.8); PLATELET COUNT 299 K/MM3 (134-434); RBC 4.28 M/mm3 (4.00-5.60); RDW 13.1 % (11.9-15.9); WHITE BLOOD COUNT 8.5 K/mm3 (4.0-10.8)
[2020-05-08 14:08] LABS: ALBUMIN 3.5 g/dl (3.4-5.0); BILIRUBIN,TOTAL 0.4 mg/dl (0.2-1); CALCIUM 9.4 mg/dl (8.5-10); TOT PROT 6.2 g/dl (6.4-8.2)
[2020-05-08] MEDS: ALBUTEROL SO4 2.5/IPRATROPIUM 0.5 INH SOL 3 ML VIAL.NEB. NEB SCH ×4 (14:45→15:30)
[2020-05-08] MEDS ORDERED: methylPREDNISolone NA SUCC 125 MG/2 ML VIAL ONE (14:49)
[2020-05-08] MEDS ORDERED: ALBUTEROL SO4 2.5/IPRATROPIUM 0.5 INH SOL 3 ML VIAL.NEB. NEB ONE ×2 (14:49→15:33)
[2020-05-08] MEDS ORDERED: MAGNESIUM SULF 50% (8.12 MEQ/2 ML-1 GM VIAL) IVPB ONE ×2 (15:15→17:40)
[2020-05-08] MEDS ORDERED: MAGNESIUM SULF 50% (8.12 MEQ/2 ML-1 GM VIAL) ONE (15:37)
[2020-05-08 15:57] LABS: N-TERMINAL BNP 1082.1 pg/ml (5-450)
[2020-05-08] MEDS ORDERED: ALBUTEROL SO4 HFA INHALER IH PRN (17:34)
[2020-05-08] MEDS ORDERED: ALBUTEROL SO4 0.083% IH SOL 2.5 MG/3 ML VIAL.NEB. NEB PRN (17:34)
[2020-05-08] MEDS ORDERED: methylPREDNISolone NA SUCC 125 MG/2 ML VIAL IVPB ONE (17:42)
[2020-05-08] MEDS ORDERED: methylPREDNISolone NA SUCC 125 MG/2 ML VIAL IVPB SCH (18:00)
[2020-05-08 18:52] VITALS: BMI 25.8
[2020-05-08] MEDS: ENOXAPARIN NA (PORCINE) 40 MG/0.4 ML DISP.SYRIN SQ SCH (19:06)
[2020-05-08] MEDS ORDERED: DEXTROSE 5%-WATER - 50 ML IVPB ONE (19:52)
[2020-05-08] MEDS ORDERED: cefTRIAXone SODIUM 1 GM VIAL ONE (19:52)
[2020-05-08] MEDS: CEFTRIAXONE 1 GM in DEXTROSE 5%-WATER - 50 ML IVPB SCH (19:58)
[2020-05-08] MEDS ORDERED: DEXTROSE 5%-WATER 100 ML IVPB ONE (21:09)
[2020-05-08] MEDS ORDERED: DOXYCYCLINE HYCLATE 100 MG VIAL ONE (21:09)
[2020-05-08] MEDS: DOXYCYCLINE INJECTION 100 MG in DEXTROSE 5%-WATER 100 ML IVPB SCH (21:17)
[2020-05-08] MEDS: PANTOPRAZOLE 40 MG TABLET PO SCH (21:17)
[2020-05-08] MEDS ORDERED: ZOLPIDEM TARTRATE 5 MG TABLET PO PRN (22:00)
[2020-05-09] MEDS: risperiDONE 2 MG TABLET PO SCH ×3 (00:42→21:23)
[2020-05-09] MEDS: ALPRAZolam 1 MG TABLET PO SCH ×3 (00:42→21:23)
[2020-05-09] MEDS: methylPREDNISolone NA SUCC 40 MG/1 ML VIAL IVPB SCH ×3 (02:03→18:48)
[2020-05-09 08:22] LABS: HEMATOCRIT 38.4 % (35.4-49); HEMOGLOBIN 12.7 GM/dl (11.7-16.9); MCH 31.9 pg (25.7-33.7); MEAN CELL VOLUME 96.7 fl (80-96); MEAN PLT VOLUME 7.8 fl (7.5-11.1); PLATELET COUNT 282 K/MM3 (134-434); RBC 3.97 M/mm3 (4.00-5.60); RDW 12.9 % (11.9-15.9); WHITE BLOOD COUNT 7.6 K/mm3 (4.0-10.8)
[2020-05-09 08:32] LABS: ALBUMIN 3.4 g/dl (3.4-5.0); BILIRUBIN,TOTAL 0.1 mg/dl (0.2-1); CALCIUM 9.5 mg/dl (8.5-10); CREATININE 1.2 mg/dl (0.55-1.3); TOT PROT 6.1 g/dl (6.4-8.2)
[2020-05-09] MEDS ORDERED: DOXYCYCLINE HYCLATE 100 MG VIAL ONE ×2 (09:21→21:09)
[2020-05-09] MEDS ORDERED: DEXTROSE 5%-WATER 100 ML IVPB ONE ×2 (09:22→21:09)
[2020-05-09] MEDS ORDERED: ESCITALOPRAM OXALATE 20 MG TABLET ONE (09:22)
[2020-05-09] MEDS ORDERED: ESCITALOPRAM OXALATE 10 MG TABLET ONE (09:22)
[2020-05-09] MEDS ORDERED: cefTRIAXone SODIUM 1 GM VIAL ONE (09:24)
[2020-05-09] MEDS ORDERED: DEXTROSE 5%-WATER - 50 ML IVPB ONE (09:24)
[2020-05-09] MEDS: DOXYCYCLINE INJECTION 100 MG in DEXTROSE 5%-WATER 100 ML IVPB SCH ×2 (09:29→21:22)
[2020-05-09] MEDS: CEFTRIAXONE 1 GM in DEXTROSE 5%-WATER - 50 ML IVPB SCH (09:29)
[2020-05-09] MEDS: ROSUVASTATIN CA 10 MG TABLET (FP) PO SCH (09:30)
[2020-05-09] MEDS: LISINOPRIL 5 MG TABLET PO SCH (09:30)
[2020-05-09] MEDS: FENOFIBRIC ACID 45 MG CAP PO SCH (09:30)
[2020-05-09] MEDS: BUDESONIDE/FORMETEROL FUMARATE 160/4.5 mcg INHALER IH SCH ×2 (09:33→21:22)
[2020-05-09] MEDS: CLOPIDOGREL BISULFATE 75 MG TABLET (FP) PO SCH (09:34)
[2020-05-09] MEDS: ENOXAPARIN NA (PORCINE) 40 MG/0.4 ML DISP.SYRIN SQ SCH (09:34)
[2020-05-09] MEDS: ASPIRIN 81 MG CHEWABLE TABLETS PO SCH (09:34)
[2020-05-09] MEDS: ESCITALOPRAM PO SCH (09:34)
[2020-05-09 09:41] LABS: PLATELET ESTIMATE ADEQUATE
[2020-05-09] MEDS ORDERED: ESCITALOPRAM OXALATE 10 MG TABLET PO SCH (10:00)
[2020-05-09] MEDS: PANTOPRAZOLE 40 MG TABLET PO SCH (21:23)
[2020-05-10] MEDS: methylPREDNISolone NA SUCC 40 MG/1 ML VIAL IVPB SCH ×3 (01:51→18:30)
[2020-05-10] MEDS ORDERED: DOXYCYCLINE HYCLATE 100 MG VIAL ONE ×2 (08:47→20:48)
[2020-05-10] MEDS ORDERED: DEXTROSE 5%-WATER 100 ML IVPB ONE ×2 (08:48→20:49)
[2020-05-10] MEDS ORDERED: ESCITALOPRAM OXALATE 10 MG TABLET ONE (08:48)
[2020-05-10] MEDS ORDERED: ESCITALOPRAM OXALATE 20 MG TABLET ONE (08:48)
[2020-05-10] MEDS ORDERED: cefTRIAXone SODIUM 1 GM VIAL ONE (08:49)
[2020-05-10] MEDS ORDERED: DEXTROSE 5%-WATER - 50 ML IVPB ONE (08:49)
[2020-05-10] MEDS: ESCITALOPRAM PO SCH (09:06)
[2020-05-10] MEDS: ROSUVASTATIN CA 10 MG TABLET (FP) PO SCH (09:06)
[2020-05-10] MEDS: ASPIRIN 81 MG CHEWABLE TABLETS PO SCH (09:06)
[2020-05-10] MEDS: ALPRAZolam 1 MG TABLET PO SCH ×2 (09:07→21:05)
[2020-05-10] MEDS: DOXYCYCLINE INJECTION 100 MG in DEXTROSE 5%-WATER 100 ML IVPB SCH ×2 (09:07→21:05)
[2020-05-10] MEDS: ENOXAPARIN NA (PORCINE) 40 MG/0.4 ML DISP.SYRIN SQ SCH (09:07)
[2020-05-10] MEDS: CEFTRIAXONE 1 GM in DEXTROSE 5%-WATER - 50 ML IVPB SCH (10:45)
[2020-05-10] MEDS: LISINOPRIL 5 MG TABLET PO SCH (10:46)
[2020-05-10] MEDS: BUDESONIDE/FORMETEROL FUMARATE 160/4.5 mcg INHALER IH SCH ×2 (10:46→21:06)
[2020-05-10] MEDS ORDERED: risperiDONE 1 MG TABLET PO SCH (10:47)
[2020-05-10] MEDS: CLOPIDOGREL BISULFATE 75 MG TABLET (FP) PO SCH (10:53)
[2020-05-10] MEDS: FENOFIBRIC ACID 45 MG CAP PO SCH (11:00)
[2020-05-10] MEDS: risperiDONE 1 MG TABLET PO SCH ×2 (11:55→21:05)
[2020-05-10] MEDS: FUROSEMIDE 40 MG TABLET (FP) PO SCH (13:07)
[2020-05-10 14:37] LABS: CALCIUM 9.3 mg/dl (8.5-10); CREATININE 1.2 mg/dl (0.55-1.3)
[2020-05-10] MEDS: PANTOPRAZOLE 40 MG TABLET PO SCH (21:05)
[2020-05-11] MEDS: methylPREDNISolone NA SUCC 40 MG/1 ML VIAL IVPB SCH (01:58)
[2020-05-11 08:28] LABS: CALCIUM 9.4 mg/dl (8.5-10); CREATININE 1.2 mg/dl (0.55-1.3); MAGNESIUM 1.8 mg/dL (1.8-2.4)
[2020-05-11] MEDS ORDERED: ESCITALOPRAM OXALATE 20 MG TABLET ONE (09:25)
[2020-05-11] MEDS ORDERED: ESCITALOPRAM OXALATE 10 MG TABLET ONE (09:25)
[2020-05-11] MEDS ORDERED: PT OWN MED DRAWER 7, Y5N ONE (09:26)
[2020-05-11] MEDS: ESCITALOPRAM PO SCH (10:00)
[2020-05-11] MEDS: ALPRAZolam 1 MG TABLET PO SCH ×2 (10:00→21:08)
[2020-05-11] MEDS: ENOXAPARIN NA (PORCINE) 40 MG/0.4 ML DISP.SYRIN SQ SCH (10:00)
[2020-05-11] MEDS: LISINOPRIL 5 MG TABLET PO SCH (10:00)
[2020-05-11] MEDS: risperiDONE 1 MG TABLET PO SCH ×2 (10:00→21:07)
[2020-05-11] MEDS: ASPIRIN 81 MG CHEWABLE TABLETS PO SCH (10:00)
[2020-05-11] MEDS: ROSUVASTATIN CA 10 MG TABLET (FP) PO SCH (10:00)
[2020-05-11] MEDS: FUROSEMIDE 40 MG TABLET (FP) PO SCH (10:00)
[2020-05-11] MEDS: FENOFIBRIC ACID 45 MG CAP PO SCH (10:00)
[2020-05-11] MEDS: CLOPIDOGREL BISULFATE 75 MG TABLET (FP) PO SCH (10:00)
[2020-05-11] MEDS: BUDESONIDE/FORMETEROL FUMARATE 160/4.5 mcg INHALER IH SCH ×2 (10:00→21:08)
[2020-05-11] MEDS ORDERED: predniSONE 20 MG TABLET (UD) PO ONE (10:03)
[2020-05-11] MEDS ORDERED: methylPREDNISolone NA SUCC 40 MG/1 ML VIAL IVPB SCH (14:00)
[2020-05-11] MEDS: PANTOPRAZOLE 40 MG TABLET PO SCH (21:08)
[2020-05-12 06:33] VITALS: BP 158/79; PULSE 52; TEMP 97.6
[2020-05-12] MEDS ORDERED: ESCITALOPRAM OXALATE 10 MG TABLET ONE (09:30)
[2020-05-12] MEDS ORDERED: ESCITALOPRAM OXALATE 20 MG TABLET ONE (09:30)
[2020-05-12] MEDS ORDERED: PT OWN MED DRAWER 7, Y5N ONE (09:31)
[2020-05-12] MEDS: ASPIRIN 81 MG CHEWABLE TABLETS PO SCH (09:35)
[2020-05-12] MEDS: ESCITALOPRAM PO SCH (09:36)
[2020-05-12] MEDS: FUROSEMIDE 40 MG TABLET (FP) PO SCH (09:36)
[2020-05-12] MEDS: LISINOPRIL 5 MG TABLET PO SCH (09:36)
[2020-05-12] MEDS: ROSUVASTATIN CA 10 MG TABLET (FP) PO SCH (09:36)
[2020-05-12] MEDS: CLOPIDOGREL BISULFATE 75 MG TABLET (FP) PO SCH (09:36)
[2020-05-12] MEDS: BUDESONIDE/FORMETEROL FUMARATE 160/4.5 mcg INHALER IH SCH (09:37)
[2020-05-12] MEDS: ENOXAPARIN NA (PORCINE) 40 MG/0.4 ML DISP.SYRIN SQ SCH (09:37)
[2020-05-12] MEDS: FENOFIBRIC ACID 45 MG CAP PO SCH (09:37)
[2020-05-12] MEDS: risperiDONE 1 MG TABLET PO SCH (09:37)
[2020-05-12] MEDS: ALPRAZolam 1 MG TABLET PO SCH (09:38)
== END 2020-05-12 12:18 | disposition home or self-care (01) | DRG 190 ==
LOC: FER 12:30 → SUPCPDRO 12:30 → FM/S 17:33
PROVIDERS: ADMIT Internal Medicine; ATTEND Nurse Practitioner Acute Care
DX: J44.1 Chronic obstructive pulmonary disease with (acute) exacerbation (principal); I50.33 Acute on chronic diastolic (congestive) heart failure; S22.030A Wedge compression fracture of third thoracic vertebra, initial encounter for closed fracture; F20.0 Paranoid schizophrenia; E87.1 Hypo-osmolality and hyponatremia; I25.10 Atherosclerotic heart disease of native coronary artery without angina pectoris; I10 Essential (primary) hypertension; E78.5 Hyperlipidemia, unspecified; I11.0 Hypertensive heart disease with heart failure; G24.01 Drug induced subacute dyskinesia; F41.8 Other specified anxiety disorders; F03.90 Unspecified dementia, unspecified severity, without behavioral disturbance, psychotic disturbance, mood disturbance, and anxiety; I25.2 Old myocardial infarction; R09.02 Hypoxemia; R91.1 Solitary pulmonary nodule; E83.42 Hypomagnesemia; W18.30XA Fall on same level, unspecified, initial encounter; Y92.89 Other specified places as the place of occurrence of the external cause; Y99.8 Other external cause status; Z95.5 Presence of coronary angioplasty implant and graft
CPT/HCPCS: 36415; 71045-TC-FY; 71250-TC; 72125-TC; 80048; 80053; 82550; 83735; 83880; 84484; 85025; 85379; 86140; 93005; 93970-TC; 97116-GP; 97161-GP; 99285-25; C9803; J2794; U0003

== ENCOUNTER 2020-10-05 12:00 | Inpatient (IN) | payer OTHER, BC ==
[2020-10-05 12:30] VITALS: BMI 27.3
[2020-10-05] MEDS ORDERED: DEXAMETHASONE SOD PHOSPHATE 10 MG/1 ML VIAL IVPUSH ONE (13:25)
[2020-10-05] MEDS ORDERED: ALBUTEROL SO4 HFA INHALER IH ONE ×2 (13:25→13:38)
[2020-10-05] MEDS ORDERED: DEXAMETHASONE SOD PHOSPHATE 10 MG/1 ML VIAL ONE (13:38)
[2020-10-05 13:41] LABS: VENOUS BASE EXCESS -3.1 mmol/L (-2-2); VENOUS O2 SATURATION 66.7 % (70-80); VENOUS PH 7.366 (7.310-7.410)
[2020-10-05 13:48] LABS: BASO % 0.4 % (0-2.0); EOS % 1.8 % (0-4.5); HEMATOCRIT 36.8 % (35.4-49); HEMOGLOBIN 12.7 GM/dL (11.7-16.9); LYMPH % 11.7 % (8-40); MCH 32.9 pg (25.7-33.7); MCHC 34.4 g/dl (32.0-35.9); MEAN CELL VOLUME 95.5 fl (80-96); MEAN PLT VOLUME 6.9 fl (7.5-11.1); NEUT % 76.1 % (42.8-82.8); PLATELET COUNT 311 K/MM3 (134-434); RBC 3.85 M/mm3 (4.00-5.60); RDW 14.3 % (11.9-15.9); WHITE BLOOD COUNT 7.3 K/mm3 (4.0-10.0)
[2020-10-05 14:00] LABS: INR 1.05 (0.83-1.09); PROTHROMBIN TIME (PATIENT) 12.9 SEC (9.7-13.0)
[2020-10-05 14:06] LABS: CHLORIDE 107 mmol/L (98-107); SODIUM 140 mmol/L (136-145)
[2020-10-05 14:08] LABS: ALBUMIN 3.3 g/dl (3.4-5.0); ANION GAP 8 MMOL/L (8-16); CALCIUM 9.2 mg/dL (8.5-10.1); CO2 25 mmol/L (21-32); GLUCOSE,RANDOM 126 mg/dL (74-106)
[2020-10-05 14:12] LABS: CREATININE 1.8 mg/dL (0.55-1.3); SGOT/AST 9 U/L (15-37); SGPT/ALT 12 U/L (13-61)
[2020-10-05 14:13] LABS: BILIRUBIN,TOTAL 0.2 mg/dL (0.2-1); TOT PROT 6.2 g/dl (6.4-8.2)
[2020-10-05 14:14] LABS: ALK PHOS 89 U/L (45-117)
[2020-10-05 14:16] LABS: N-TERMINAL BNP 162.7 pg/ml (5-450)
[2020-10-05] MEDS ORDERED: ASPIRIN 81 MG CHEWABLE TABLETS PO ONE (14:38)
[2020-10-05] MEDS ORDERED: ASPIRIN 81 MG CHEWABLE TABLETS ONE (14:59)
[2020-10-05] MEDS ORDERED: ONDANSETRON 4 MG/2 ML VIAL IVPUSH PRN (18:51)
[2020-10-05] MEDS ORDERED: MAG HYDROX/AL HYDROX/SIMETH 30 ML UNIT-DOSE CUP PO PRN (18:52)
[2020-10-05] MEDS ORDERED: LACTATED RINGERS SOLUTION 1,000 ML/1,000 ML INFUS.BAG IV SCH (19:00)
[2020-10-05] MEDS: HEPARIN NA (PORCINE) 5,000 UNITS/ML 1ML VIAL SQ SCH (21:28)
[2020-10-05] MEDS: PANTOPRAZOLE 40 MG TABLET PO SCH (21:29)
[2020-10-05] MEDS ORDERED: risperiDONE 2 MG TABLET PO SCH (22:00)
[2020-10-05] MEDS: risperiDONE 1 MG TABLET PO SCH (22:52)
[2020-10-06] MEDS: MELATONIN 5 MG TABLETS PO SCH ×2 (05:18→22:12)
[2020-10-06 07:24] LABS: HEMATOCRIT 34.7 % (35.4-49); HEMOGLOBIN 11.9 GM/dL (11.7-16.9); MCH 33.3 pg (25.7-33.7); MCHC 34.3 g/dl (32.0-35.9); MEAN PLT VOLUME 7.2 fl (7.5-11.1); PLATELET COUNT 277 K/MM3 (134-434); RBC 3.58 M/mm3 (4.00-5.60); RDW 14.5 % (11.9-15.9); WHITE BLOOD COUNT 6.1 K/mm3 (4.0-10.0)
[2020-10-06 07:47] LABS: ALBUMIN 3.2 g/dl (3.4-5.0)
[2020-10-06 07:50] LABS: CREATININE 1.7 mg/dL (0.55-1.3); MAGNESIUM 1.9 mg/dL (1.8-2.4)
[2020-10-06 07:52] LABS: TOT PROT 5.9 g/dl (6.4-8.2)
[2020-10-06 07:56] LABS: BILIRUBIN,TOTAL 0.2 mg/dL (0.2-1)
[2020-10-06 07:57] LABS: CALCIUM 9.1 mg/dL (8.5-10.1)
[2020-10-06] MEDS ORDERED: ACETAMINOPHEN 325 MG TABLET (FP) PO ONE (08:40)
[2020-10-06] MEDS ORDERED: ESCITALOPRAM OXALATE 10 MG TABLET ONE (09:49)
[2020-10-06] MEDS ORDERED: PT OWN MED DRAWER 7, Y5N ONE (09:50)
[2020-10-06] MEDS: ESCITALOPRAM OXALATE 20 MG TABLET PO SCH (09:53)
[2020-10-06] MEDS: risperiDONE 1 MG TABLET PO SCH ×2 (09:54→22:13)
[2020-10-06] MEDS: ASPIRIN 81 MG CHEWABLE TABLETS PO SCH (09:54)
[2020-10-06] MEDS: HEPARIN NA (PORCINE) 5,000 UNITS/ML 1ML VIAL SQ SCH ×2 (09:55→22:12)
[2020-10-06] MEDS ORDERED: PATIENT'S OWN MEDICATION (NON-FORMULARY) (Bupropion Hcl [Wellbutrin Xl] 300 MG Tab.Er.24h) PO SCH (10:00)
[2020-10-06] MEDS ORDERED: CLOPIDOGREL BISULFATE 75 MG TABLET (FP) PO SCH (10:00)
[2020-10-06] MEDS ORDERED: LACTATED RINGERS SOLUTION 1,000 ML/1,000 ML INFUS.BAG IV SCH (13:09)
[2020-10-06] MEDS: SODIUM CHLORIDE 0.45% 1,000 ML IV SCH (16:29)
[2020-10-06 18:42] LABS: URINE APPEARANCE CLEAR; URINE BILIRUBIN NEGATIVE (NEGATIVE); URINE COLOR YELLOW; URINE GLUCOSE (UA) NEGATIVE (NEGATIVE); URINE KETONE NEGATIVE (NEGATIVE); URINE LEUK ESTERASE NEGATIVE (NEGATIVE); URINE NITRITE NEGATIVE (NEGATIVE); URINE PROTEIN NEGATIVE (NEGATIVE); URINE UROBILINOGEN 0.2 mg/dL (0.2-1.0)
[2020-10-06] MEDS ORDERED: ROSUVASTATIN CA 10 MG TABLET (FP) PO SCH (22:00)
[2020-10-06] MEDS: PANTOPRAZOLE 40 MG TABLET PO SCH (22:12)
[2020-10-07] MEDS: SODIUM CHLORIDE 0.45% 1,000 ML IV SCH (05:39)
[2020-10-07 07:03] LABS: BLOOD UREA NITROGEN 30.5 mg/dL (7-18); MAGNESIUM 1.9 mg/dL (1.8-2.4)
[2020-10-07 07:06] LABS: CREATININE 1.5 mg/dL (0.55-1.3)
[2020-10-07] MEDS ORDERED: ESCITALOPRAM OXALATE 10 MG TABLET ONE (08:57)
[2020-10-07] MEDS: ESCITALOPRAM OXALATE 20 MG TABLET PO SCH (09:47)
[2020-10-07] MEDS: ASPIRIN 81 MG CHEWABLE TABLETS PO SCH (09:47)
[2020-10-07] MEDS: HEPARIN NA (PORCINE) 5,000 UNITS/ML 1ML VIAL SQ SCH (09:47)
[2020-10-07] MEDS: risperiDONE 1 MG TABLET PO SCH (09:48)
[2020-10-07 10:31] VITALS: BP 134/80; PULSE 62; TEMP 98
== END 2020-10-07 14:11 | disposition home or self-care (01) | DRG 313 ==
LOC: JER 12:00 → JERBED 16:54 → OBSVTOIN 18:47 → J4S 21:04
PROVIDERS: ADMIT Internal Medicine; ATTEND Student in an Organized Health Care Education/Training Program
DX: R07.89 Other chest pain (principal); N17.9 Acute kidney failure, unspecified; F20.0 Paranoid schizophrenia; K21.9 Gastro-esophageal reflux disease without esophagitis; E78.5 Hyperlipidemia, unspecified; J44.9 Chronic obstructive pulmonary disease, unspecified; I25.10 Atherosclerotic heart disease of native coronary artery without angina pectoris; G24.01 Drug induced subacute dyskinesia; Z95.5 Presence of coronary angioplasty implant and graft; I12.9 Hypertensive chronic kidney disease with stage 1 through stage 4 chronic kidney disease, or unspecified chronic kidney disease; N18.9 Chronic kidney disease, unspecified
CPT/HCPCS: 36415; 71045-TC-FY; 76775-TC; 80048; 80053; 80061; 81003; 82550; 82570; 82803; 83721; 83735; 83880; 84300; 84484; 85025; 85027; 85610; 85730; 93005; 93010; 93306-TC; 97116-GP; 97161-GP; 99285-25; C9803; G0378; J1100; J1644; J2794; U0003; U0005

== ENCOUNTER 2020-11-27 18:34 | Emergency (ER) | payer OTHER, BC ==
[2020-11-27 18:49] VITALS: BP 108/76; PULSE 66; TEMP 98.8; BMI 26.6
== END 2020-11-27 20:36 | disposition home or self-care (01) ==
LOC: FER 18:34
DX: M54.2 Cervicalgia (principal); M54.9 Dorsalgia, unspecified
CPT/HCPCS: 99281-25

== ENCOUNTER 2020-12-10 08:16 | Inpatient (IN) | payer BC ==
[2020-12-10] MEDS ORDERED: ACETAMINOPHEN 500 MG TABLET (FP) PO ONE (09:28)
[2020-12-10] MEDS ORDERED: ACETAMINOPHEN 325 MG TABLET (FP) ONE ×2 (09:40→22:42)
[2020-12-10 10:05] LABS: URINE APPEARANCE CLEAR; URINE BILIRUBIN NEGATIVE (NEGATIVE); URINE COLOR YELLOW; URINE GLUCOSE (UA) NEGATIVE (NEGATIVE); URINE KETONE NEGATIVE (NEGATIVE); URINE LEUK ESTERASE NEGATIVE (NEGATIVE); URINE NITRITE NEGATIVE (NEGATIVE); URINE PROTEIN NEGATIVE (NEGATIVE); URINE UROBILINOGEN 0.2 mg/dL (0.2-1.0)
[2020-12-10 10:30] LABS: BASO % 0.3 % (0-2.0); EOS % 2.4 % (0-4.5); HEMATOCRIT 37.7 % (35.4-49); HEMOGLOBIN 12.8 GM/dL (11.7-16.9); LYMPH % 10.9 % (8-40); MCH 32.6 pg (25.7-33.7); MEAN CELL VOLUME 96.1 fl (80-96); MEAN PLT VOLUME 7.3 fl (7.5-11.1); MONO % 6.3 % (3.8-10.2); NEUT % 80.1 % (42.8-82.8); PLATELET COUNT 221 10^3/uL (134-434); RBC 3.93 M/mm3 (4.00-5.60); RDW 13.2 % (11.9-15.9); WHITE BLOOD COUNT 8.3 K/mm3 (4.0-10.0)
[2020-12-10 10:37] LABS: INR 1.03 (0.83-1.09); PROTHROMBIN TIME (PATIENT) 12.4 SEC (9.7-13.0)
[2020-12-10 10:40] LABS: ACTIVATED PTT 31.4 SECONDS (25.2-36.5)
[2020-12-10 10:55] LABS: ALBUMIN 3.7 g/dl (3.4-5.0); BLOOD UREA NITROGEN 28.9 mg/dL (7-18); CALCIUM 9.2 mg/dL (8.5-10.1)
[2020-12-10 10:58] LABS: CREATININE 1.4 mg/dL (0.55-1.3)
[2020-12-10 11:00] LABS: BILIRUBIN,TOTAL 0.3 mg/dL (0.2-1); TOT PROT 6.6 g/dl (6.4-8.2)
[2020-12-10] MEDS: ACETAMINOPHEN 325 MG TABLET (FP) PO PRN (21:33)
[2020-12-11 00:19] VITALS: BMI 24.4
[2020-12-11] MEDS: HEPARIN NA (PORCINE) 5,000 UNITS/ML 1ML VIAL SQ SCH ×4 (01:03→21:20)
[2020-12-11] MEDS: ACETAMINOPHEN 325 MG TABLET (FP) PO PRN ×3 (05:19→21:20)
[2020-12-11 08:18] LABS: BASO % 0.4 % (0-2.0); HEMATOCRIT 35.2 % (35.4-49); HEMOGLOBIN 12.1 GM/dL (11.7-16.9); LYMPH % 15.1 % (8-40); MCH 32.6 pg (25.7-33.7); MCHC 34.3 g/dl (32.0-35.9); MEAN CELL VOLUME 95.1 fl (80-96); MEAN PLT VOLUME 7.1 fl (7.5-11.1); MONO % 9.2 % (3.8-10.2); NEUT % 70.3 % (42.8-82.8); PLATELET COUNT 213 10^3/uL (134-434); RBC 3.71 M/mm3 (4.00-5.60); RDW 12.9 % (11.9-15.9); WHITE BLOOD COUNT 6.5 K/mm3 (4.0-10.0)
[2020-12-11 08:40] LABS: CALCIUM 8.8 mg/dL (8.5-10.1)
[2020-12-11 08:44] LABS: CREATININE 1.3 mg/dL (0.55-1.3)
[2020-12-11] MEDS: ALPRAZolam 1 MG TABLET PO SCH ×2 (09:03→21:20)
[2020-12-11] MEDS: risperiDONE 1 MG TABLET PO SCH ×2 (09:03→21:20)
[2020-12-11] MEDS: ESCITALOPRAM OXALATE 10 MG TABLET PO SCH (09:03)
[2020-12-11] MEDS: LISINOPRIL 10 MG TABLET PO SCH (09:03)
[2020-12-11] MEDS: CLOPIDOGREL BISULFATE 75 MG TABLET (FP) PO SCH (09:03)
[2020-12-11] MEDS: amLODIPine BESYLATE 5 MG TABLET (FP) PO SCH (09:04)
[2020-12-11] MEDS: ZOLPIDEM TARTRATE 5 MG TABLET PO SCH (21:20)
[2020-12-12] MEDS: ACETAMINOPHEN 325 MG TABLET (FP) PO PRN ×4 (03:55→22:11)
[2020-12-12] MEDS: HEPARIN NA (PORCINE) 5,000 UNITS/ML 1ML VIAL SQ SCH ×3 (05:25→22:11)
[2020-12-12 09:14] LABS: HEMATOCRIT 35.2 % (35.4-49); HEMOGLOBIN 12.1 GM/dL (11.7-16.9); MCH 32.8 pg (25.7-33.7); MCHC 34.3 g/dl (32.0-35.9); MEAN CELL VOLUME 95.6 fl (80-96); MEAN PLT VOLUME 7.4 fl (7.5-11.1); PLATELET COUNT 217 10^3/uL (134-434); RBC 3.68 M/mm3 (4.00-5.60); WHITE BLOOD COUNT 6.4 K/mm3 (4.0-10.0)
[2020-12-12 09:32] LABS: CALCIUM 8.7 mg/dL (8.5-10.1)
[2020-12-12 09:33] LABS: BLOOD UREA NITROGEN 27.6 mg/dL (7-18)
[2020-12-12 09:36] LABS: CREATININE 1.2 mg/dL (0.55-1.3)
[2020-12-12] MEDS: ESCITALOPRAM OXALATE 10 MG TABLET PO SCH (10:23)
[2020-12-12] MEDS: ALPRAZolam 1 MG TABLET PO SCH ×2 (10:23→22:11)
[2020-12-12] MEDS: risperiDONE 1 MG TABLET PO SCH ×2 (10:23→22:11)
[2020-12-12] MEDS: LISINOPRIL 10 MG TABLET PO SCH (10:23)
[2020-12-12] MEDS: CLOPIDOGREL BISULFATE 75 MG TABLET (FP) PO SCH (10:26)
[2020-12-12] MEDS: amLODIPine BESYLATE 5 MG TABLET (FP) PO SCH (10:26)
[2020-12-12] MEDS: POLYETHYLENE GLYCOL (HEALTHYLAX) 3350 17 GM PACKET PO SCH (10:26)
[2020-12-12] MEDS ORDERED: PT OWN MED DRAWER 7, Y5N ONE ×2 (13:02→22:09)
[2020-12-12] MEDS: CLOTRIMAZOLE 1% CREAM 15 GM TUBE TP SCH ×2 (13:04→22:12)
[2020-12-12] MEDS: SENNOSIDES 8.6MG TABLET (FP) PO SCH (22:11)
[2020-12-12] MEDS: ZOLPIDEM TARTRATE 5 MG TABLET PO SCH (22:11)
[2020-12-13] MEDS: HEPARIN NA (PORCINE) 5,000 UNITS/ML 1ML VIAL SQ SCH ×3 (06:02→21:25)
[2020-12-13] MEDS: ACETAMINOPHEN 325 MG TABLET (FP) PO PRN ×2 (08:54→18:32)
[2020-12-13] MEDS ORDERED: PT OWN MED DRAWER 7, Y5N ONE (09:59)
[2020-12-13] MEDS: POLYETHYLENE GLYCOL (HEALTHYLAX) 3350 17 GM PACKET PO SCH (10:01)
[2020-12-13] MEDS: amLODIPine BESYLATE 5 MG TABLET (FP) PO SCH (10:02)
[2020-12-13] MEDS: ESCITALOPRAM OXALATE 10 MG TABLET PO SCH (10:02)
[2020-12-13] MEDS: CLOPIDOGREL BISULFATE 75 MG TABLET (FP) PO SCH (10:03)
[2020-12-13] MEDS: LISINOPRIL 10 MG TABLET PO SCH (10:03)
[2020-12-13] MEDS: risperiDONE 1 MG TABLET PO SCH ×2 (10:04→21:25)
[2020-12-13] MEDS: ALPRAZolam 1 MG TABLET PO SCH ×2 (10:05→21:25)
[2020-12-13] MEDS: CLOTRIMAZOLE 1% CREAM 15 GM TUBE TP SCH ×2 (10:06→21:26)
[2020-12-13] MEDS: LIDOCAINE 5% TOPICAL PATCH TP SCH (10:46)
[2020-12-13] MEDS: ZOLPIDEM TARTRATE 5 MG TABLET PO SCH (21:25)
[2020-12-13] MEDS: SENNOSIDES 8.6MG TABLET (FP) PO SCH (21:25)
[2020-12-13] MEDS: LIDOCAINE PATCH REMOVAL MC SCH (21:26)
[2020-12-14] MEDS: HEPARIN NA (PORCINE) 5,000 UNITS/ML 1ML VIAL SQ SCH ×3 (05:07→21:14)
[2020-12-14] MEDS: ACETAMINOPHEN 325 MG TABLET (FP) PO PRN ×2 (05:07→16:30)
[2020-12-14] MEDS ORDERED: PT OWN MED DRAWER 7, Y5N ONE (09:51)
[2020-12-14] MEDS: ALPRAZolam 1 MG TABLET PO SCH ×2 (09:53→21:14)
[2020-12-14] MEDS: ESCITALOPRAM OXALATE 10 MG TABLET PO SCH (09:53)
[2020-12-14] MEDS: POLYETHYLENE GLYCOL (HEALTHYLAX) 3350 17 GM PACKET PO SCH (09:54)
[2020-12-14] MEDS: CLOPIDOGREL BISULFATE 75 MG TABLET (FP) PO SCH (09:54)
[2020-12-14] MEDS: amLODIPine BESYLATE 5 MG TABLET (FP) PO SCH (09:54)
[2020-12-14] MEDS: LIDOCAINE 5% TOPICAL PATCH TP SCH (09:54)
[2020-12-14] MEDS: CLOTRIMAZOLE 1% CREAM 15 GM TUBE TP SCH ×2 (09:54→21:15)
[2020-12-14] MEDS: LISINOPRIL 10 MG TABLET PO SCH (09:54)
[2020-12-14] MEDS: risperiDONE 1 MG TABLET PO SCH ×2 (09:54→21:14)
[2020-12-14] MEDS: ZOLPIDEM TARTRATE 5 MG TABLET PO SCH (21:14)
[2020-12-14] MEDS: SENNOSIDES 8.6MG TABLET (FP) PO SCH (21:14)
[2020-12-14] MEDS: LIDOCAINE PATCH REMOVAL MC SCH (21:15)
[2020-12-15] MEDS: HEPARIN NA (PORCINE) 5,000 UNITS/ML 1ML VIAL SQ SCH ×3 (05:16→21:01)
[2020-12-15] MEDS ORDERED: PT OWN MED DRAWER 7, Y5N ONE ×2 (10:15→10:25)
[2020-12-15] MEDS: risperiDONE 1 MG TABLET PO SCH ×2 (10:22→21:00)
[2020-12-15] MEDS: POLYETHYLENE GLYCOL (HEALTHYLAX) 3350 17 GM PACKET PO SCH (10:23)
[2020-12-15] MEDS: CLOPIDOGREL BISULFATE 75 MG TABLET (FP) PO SCH (10:23)
[2020-12-15] MEDS: amLODIPine BESYLATE 5 MG TABLET (FP) PO SCH (10:23)
[2020-12-15] MEDS: LISINOPRIL 10 MG TABLET PO SCH (10:23)
[2020-12-15] MEDS: ALPRAZolam 1 MG TABLET PO SCH ×2 (10:23→21:00)
[2020-12-15] MEDS: ESCITALOPRAM OXALATE 10 MG TABLET PO SCH (10:23)
[2020-12-15] MEDS: LIDOCAINE 5% TOPICAL PATCH TP SCH (10:23)
[2020-12-15] MEDS: ACETAMINOPHEN 325 MG TABLET (FP) PO PRN ×2 (10:26→21:01)
[2020-12-15] MEDS: CLOTRIMAZOLE 1% CREAM 15 GM TUBE TP SCH ×2 (10:27→21:02)
[2020-12-15] MEDS: ZOLPIDEM TARTRATE 5 MG TABLET PO SCH (21:00)
[2020-12-15] MEDS: SENNOSIDES 8.6MG TABLET (FP) PO SCH (21:00)
[2020-12-15] MEDS: LIDOCAINE PATCH REMOVAL MC SCH (21:02)
[2020-12-15 22:36] VITALS: BP 112/54; PULSE 60; TEMP 98.2
== END 2020-12-16 00:36 | DRG 552 ==
LOC: JER 08:16 → J8W 13:28
PROVIDERS: ADMIT Internal Medicine; ATTEND Family Medicine
DX: M51.16 Intervertebral disc disorders with radiculopathy, lumbar region (principal); R26.9 Unspecified abnormalities of gait and mobility; R29.6 Repeated falls; G24.01 Drug induced subacute dyskinesia; J44.9 Chronic obstructive pulmonary disease, unspecified; F25.9 Schizoaffective disorder, unspecified; L21.9 Seborrheic dermatitis, unspecified; R58 Hemorrhage, not elsewhere classified; N18.9 Chronic kidney disease, unspecified; E86.0 Dehydration; I25.10 Atherosclerotic heart disease of native coronary artery without angina pectoris; I10 Essential (primary) hypertension; E78.5 Hyperlipidemia, unspecified; F41.8 Other specified anxiety disorders; Z98.61 Coronary angioplasty status
CPT/HCPCS: 36415; 70450-TC; 71045-TC-FY; 72125-TC; 72128-TC; 72131-TC; 73523-TC-FY; 80048; 80053; 81003; 85025; 85027; 85610; 85730; 87086; 93005; 93010; 97116-GP; 97162-GP; 99285-25; C9803; J1644; J2794; U0003; U0005

== ENCOUNTER 2021-01-11 15:02 | Inpatient (IN) | payer BC ==
[2021-01-11] MEDS ORDERED: SODIUM CHLORIDE 2,109 ML IV ONE (15:38)
[2021-01-11 16:55] LABS: URINE APPEARANCE CLEAR; URINE BILIRUBIN NEGATIVE (NEGATIVE); URINE COLOR YELLOW; URINE GLUCOSE (UA) NEGATIVE (NEGATIVE); URINE KETONE NEGATIVE (NEGATIVE); URINE LEUK ESTERASE NEGATIVE (NEGATIVE); URINE NITRITE NEGATIVE (NEGATIVE); URINE PROTEIN NEGATIVE (NEGATIVE); URINE UROBILINOGEN 0.2 mg/dL (0.2-1.0)
[2021-01-11 17:34] LABS: BASO % 0.3 % (0-2.0); EOS % 0.7 % (0-4.5); HEMATOCRIT 37.8 % (35.4-49); LYMPH % 11.9 % (8-40); MCH 32.7 pg (25.7-33.7); MCHC 34.3 g/dl (32.0-35.9); MEAN CELL VOLUME 95.3 fl (80-96); MEAN PLT VOLUME 7.2 fl (7.5-11.1); MONO % 17.8 % (3.8-10.2); NEUT % 69.3 % (42.8-82.8); PLATELET COUNT 259 10^3/uL (134-434); RBC 3.96 M/mm3 (4.00-5.60); RDW 13.2 % (11.9-15.9); WHITE BLOOD COUNT 8.5 K/mm3 (4.0-10.0)
[2021-01-11 17:57] LABS: INR 1.11 (0.83-1.09); PROTHROMBIN TIME (PATIENT) 13.4 SEC (9.7-13.0)
[2021-01-11 17:59] LABS: ACTIVATED PTT 28.6 SECONDS (25.2-36.5)
[2021-01-11 18:02] LABS: CHLORIDE 108 mmol/L (98-107); SODIUM 138 mmol/L (136-145)
[2021-01-11 18:05] LABS: ALBUMIN 3.2 g/dl (3.4-5.0); ANION GAP 8 MMOL/L (8-16); BLOOD UREA NITROGEN 50.4 mg/dL (7-18); CO2 23 mmol/L (21-32); GLUCOSE,RANDOM 109 mg/dL (74-106)
[2021-01-11 18:08] LABS: BILIRUBIN,DIRECT 0.1 mg/dL (0.0-0.2); SGOT/AST 25 U/L (15-37); SGPT/ALT 18 U/L (13-61)
[2021-01-11 18:11] LABS: ALK PHOS 102 U/L (45-117); BILIRUBIN,TOTAL 0.3 mg/dL (0.2-1); LDH 127 U/L (87-246); TOT PROT 6.6 g/dl (6.4-8.2)
[2021-01-11 22:08] LABS: MAGNESIUM 2.1 mg/dL (1.8-2.4)
[2021-01-12 04:33] VITALS: BMI 24.7
[2021-01-12] MEDS: HEPARIN NA (PORCINE) 5,000 UNITS/ML 1ML VIAL SQ SCH ×3 (05:51→21:34)
[2021-01-12 08:39] LABS: BASO % 0.6 % (0-2.0); EOS % 2.8 % (0-4.5); HEMATOCRIT 33.1 % (35.4-49); HEMOGLOBIN 11.5 GM/dL (11.7-16.9); LYMPH % 15.4 % (8-40); MCH 33.4 pg (25.7-33.7); MCHC 34.7 g/dl (32.0-35.9); MEAN CELL VOLUME 96.2 fl (80-96); MEAN PLT VOLUME 7.2 fl (7.5-11.1); MONO % 14.7 % (3.8-10.2); NEUT % 66.5 % (42.8-82.8); PLATELET COUNT 251 10^3/uL (134-434); RBC 3.44 M/mm3 (4.00-5.60); RDW 13.4 % (11.9-15.9); WHITE BLOOD COUNT 5.8 K/mm3 (4.0-10.0)
[2021-01-12 09:14] LABS: CALCIUM 9.8 mg/dL (8.5-10.1)
[2021-01-12 09:17] LABS: BLOOD UREA NITROGEN 42.7 mg/dL (7-18)
[2021-01-12 09:18] LABS: BILIRUBIN,TOTAL 0.2 mg/dL (0.2-1); TOT PROT 5.6 g/dl (6.4-8.2)
[2021-01-12 09:20] LABS: CREATININE 1.3 mg/dL (0.55-1.3)
[2021-01-12] MEDS ORDERED: ESCITALOPRAM OXALATE 20 MG TABLET PO SCH (10:00)
[2021-01-12] MEDS ORDERED: DEUTETRABENAZINE 6 MG PO SCH (10:00)
[2021-01-12] MEDS ORDERED: ESCITALOPRAM OXALATE 10 MG TABLET ONE (10:21)
[2021-01-12] MEDS ORDERED: ESCITALOPRAM OXALATE 20 MG TABLET ONE (10:22)
[2021-01-12] MEDS ORDERED: PT OWN MED DRAWER 7, Y5N ONE ×4 (10:22→21:36)
[2021-01-12] MEDS: POLYETHYLENE GLYCOL (HEALTHYLAX) 3350 17 GM PACKET PO SCH (10:37)
[2021-01-12] MEDS: ESCITALOPRAM OXALATE PO SCH (10:37)
[2021-01-12] MEDS: FENOFIBRIC ACID 45 MG CAP PO SCH (10:37)
[2021-01-12] MEDS: ASCORBIC ACID 500 MG TABLET (FP) PO SCH ×2 (10:38→21:34)
[2021-01-12] MEDS: CHOLECALCIFEROL (VIT D3) 1,000 UNIT (25 MCG) TABLET PO SCH (10:38)
[2021-01-12] MEDS: risperiDONE 1 MG TABLET PO SCH ×2 (10:38→21:38)
[2021-01-12] MEDS: ASPIRIN 81 MG CHEWABLE TABLETS PO SCH (10:38)
[2021-01-12] MEDS: ZINC SULFATE 220 MG CAPSULE (FP) PO SCH (10:38)
[2021-01-12] MEDS: CLOPIDOGREL BISULFATE 75 MG TABLET (FP) PO SCH (10:38)
[2021-01-12] MEDS: ACETAMINOPHEN 325 MG TABLET (FP) PO PRN ×2 (10:38→21:33)
[2021-01-12] MEDS: LIDOCAINE 5% TOPICAL PATCH TP SCH (12:36)
[2021-01-12] MEDS ORDERED: VANCOMYCIN 1 GM in D5W (PRE-DOCKED) 1,000 MG/250 ML IVPB ONE (15:30)
[2021-01-12] MEDS ORDERED: DEXAMETHASONE SOD PHOSPHATE 10 MG/1 ML VIAL IM SCH (17:00)
[2021-01-12] MEDS ORDERED: REMDESIVIR 200 MG in SODIUM CHLORIDE 250 ML IVPB ONE (17:45)
[2021-01-12] MEDS: DEXAMETHASONE SOD PHOSPHATE 4 MG/1 ML VIAL IM SCH (20:03)
[2021-01-12] MEDS: SENNOSIDES 8.6MG TABLET (FP) PO SCH (21:34)
[2021-01-12] MEDS: ROSUVASTATIN CA 10 MG TABLET (FP) PO SCH (21:34)
[2021-01-12] MEDS: LIDOCAINE PATCH REMOVAL MC SCH (21:35)
[2021-01-12] MEDS: PANTOPRAZOLE 40 MG TABLET PO SCH (21:37)
[2021-01-12] MEDS: BUDESONIDE/FORMETEROL FUMARATE 160/4.5 mcg INHALER IH SCH (21:52)
[2021-01-13] MEDS: ACETAMINOPHEN 325 MG TABLET (FP) PO PRN (05:26)
[2021-01-13] MEDS: HEPARIN NA (PORCINE) 5,000 UNITS/ML 1ML VIAL SQ SCH ×2 (05:27→23:14)
[2021-01-13] MEDS ORDERED: ESCITALOPRAM OXALATE 10 MG TABLET ONE (09:28)
[2021-01-13] MEDS ORDERED: ESCITALOPRAM OXALATE 20 MG TABLET ONE (09:28)
[2021-01-13] MEDS: ESCITALOPRAM OXALATE PO SCH (09:33)
[2021-01-13] MEDS: ZINC SULFATE 220 MG CAPSULE (FP) PO SCH (09:33)
[2021-01-13] MEDS: CLOPIDOGREL BISULFATE 75 MG TABLET (FP) PO SCH (09:33)
[2021-01-13] MEDS: ASPIRIN 81 MG CHEWABLE TABLETS PO SCH (09:33)
[2021-01-13] MEDS: POLYETHYLENE GLYCOL (HEALTHYLAX) 3350 17 GM PACKET PO SCH (09:33)
[2021-01-13] MEDS: ASCORBIC ACID 500 MG TABLET (FP) PO SCH ×2 (09:33→22:58)
[2021-01-13] MEDS: LIDOCAINE 5% TOPICAL PATCH TP SCH (09:33)
[2021-01-13] MEDS: CHOLECALCIFEROL (VIT D3) 1,000 UNIT (25 MCG) TABLET PO SCH (09:33)
[2021-01-13] MEDS: BUDESONIDE/FORMETEROL FUMARATE 160/4.5 mcg INHALER IH SCH ×2 (09:34→23:14)
[2021-01-13] MEDS: DEXAMETHASONE SOD PHOSPHATE 4 MG/1 ML VIAL IM SCH (09:34)
[2021-01-13] MEDS: FENOFIBRIC ACID 45 MG CAP PO SCH (09:35)
[2021-01-13] MEDS: risperiDONE 1 MG TABLET PO SCH ×2 (09:35→22:58)
[2021-01-13 10:46] LABS: BASO % 0.1 % (0-2.0); EOS % 0.1 % (0-4.5); HEMATOCRIT 30.7 % (35.4-49); HEMOGLOBIN 10.7 GM/dL (11.7-16.9); LYMPH % 4.7 % (8-40); MCH 33.3 pg (25.7-33.7); MCHC 34.9 g/dl (32.0-35.9); MEAN CELL VOLUME 95.4 fl (80-96); MEAN PLT VOLUME 7.5 fl (7.5-11.1); MONO % 5.5 % (3.8-10.2); NEUT % 89.6 % (42.8-82.8); PLATELET COUNT 267 10^3/uL (134-434); RBC 3.21 M/mm3 (4.00-5.60); RDW 13.1 % (11.9-15.9); WHITE BLOOD COUNT 10.6 K/mm3 (4.0-10.0)
[2021-01-13 11:17] LABS: CALCIUM 8.8 mg/dL (8.5-10.1)
[2021-01-13 11:18] LABS: BLOOD UREA NITROGEN 34.2 mg/dL (7-18); MAGNESIUM 1.8 mg/dL (1.8-2.4)
[2021-01-13 11:21] LABS: CREATININE 1.3 mg/dL (0.55-1.3)
[2021-01-13 11:22] LABS: BILIRUBIN,TOTAL 0.3 mg/dL (0.2-1)
[2021-01-13 11:23] LABS: TOT PROT 5.6 g/dl (6.4-8.2)
[2021-01-13 11:24] LABS: ALBUMIN 2.8 g/dl (3.4-5.0)
[2021-01-13] MEDS ORDERED: SODIUM CHLORIDE 1 GM TABLET PO ONE (12:02)
[2021-01-13] MEDS: REMDESIVIR 100 MG in SODIUM CHLORIDE 250 ML IVPB SCH (16:56)
[2021-01-13] MEDS ORDERED: PT OWN MED DRAWER 7, Y5N ONE (20:50)
[2021-01-13] MEDS: SENNOSIDES 8.6MG TABLET (FP) PO SCH (22:57)
[2021-01-13] MEDS: ROSUVASTATIN CA 10 MG TABLET (FP) PO SCH (22:58)
[2021-01-13] MEDS: PANTOPRAZOLE 40 MG TABLET PO SCH (22:58)
[2021-01-13] MEDS: LIDOCAINE PATCH REMOVAL MC SCH (22:59)
[2021-01-14 09:09] LABS: BASO % 0.1 % (0-2.0); HEMATOCRIT 32.7 % (35.4-49); HEMOGLOBIN 11.4 GM/dL (11.7-16.9); LYMPH % 1.8 % (8-40); MCH 32.9 pg (25.7-33.7); MCHC 34.7 g/dl (32.0-35.9); MEAN CELL VOLUME 94.6 fl (80-96); MEAN PLT VOLUME 7.7 fl (7.5-11.1); MONO % 8.4 % (3.8-10.2); NEUT % 89.7 % (42.8-82.8); PLATELET COUNT 309 10^3/uL (134-434); RBC 3.46 M/mm3 (4.00-5.60); RDW 13.1 % (11.9-15.9); WHITE BLOOD COUNT 17.8 K/mm3 (4.0-10.0)
[2021-01-14 09:25] LABS: CREATININE 1.2 mg/dL (0.55-1.3)
[2021-01-14 09:26] LABS: BILIRUBIN,TOTAL 0.4 mg/dL (0.2-1); BLOOD UREA NITROGEN 30.6 mg/dL (7-18)
[2021-01-14 09:27] LABS: TOT PROT 5.6 g/dl (6.4-8.2)
[2021-01-14 09:28] LABS: CALCIUM 9.1 mg/dL (8.5-10.1); MAGNESIUM 1.6 mg/dL (1.8-2.4)
[2021-01-14 09:52] LABS: ALBUMIN 2.8 g/dl (3.4-5.0)
[2021-01-14] MEDS ORDERED: PT OWN MED DRAWER 7, Y5N ONE ×2 (10:49→20:44)
[2021-01-14] MEDS ORDERED: ESCITALOPRAM OXALATE 10 MG TABLET ONE (10:49)
[2021-01-14] MEDS ORDERED: ESCITALOPRAM OXALATE 20 MG TABLET ONE (10:49)
[2021-01-14] MEDS: POLYETHYLENE GLYCOL (HEALTHYLAX) 3350 17 GM PACKET PO SCH (10:51)
[2021-01-14] MEDS: LIDOCAINE 5% TOPICAL PATCH TP SCH (10:51)
[2021-01-14] MEDS: HEPARIN NA (PORCINE) 5,000 UNITS/ML 1ML VIAL SQ SCH ×2 (10:52→21:12)
[2021-01-14] MEDS: FENOFIBRIC ACID 45 MG CAP PO SCH (10:53)
[2021-01-14] MEDS: DEXAMETHASONE SOD PHOSPHATE 4 MG/1 ML VIAL IVPUSH SCH (10:54)
[2021-01-14] MEDS: ESCITALOPRAM OXALATE PO SCH (10:55)
[2021-01-14] MEDS: ZINC SULFATE 220 MG CAPSULE (FP) PO SCH (10:55)
[2021-01-14] MEDS: ASPIRIN 81 MG CHEWABLE TABLETS PO SCH (10:56)
[2021-01-14] MEDS: risperiDONE 1 MG TABLET PO SCH ×2 (10:56→21:12)
[2021-01-14] MEDS: CLOPIDOGREL BISULFATE 75 MG TABLET (FP) PO SCH (10:56)
[2021-01-14] MEDS: CHOLECALCIFEROL (VIT D3) 1,000 UNIT (25 MCG) TABLET PO SCH (10:56)
[2021-01-14] MEDS: ASCORBIC ACID 500 MG TABLET (FP) PO SCH ×2 (10:56→21:13)
[2021-01-14] MEDS: BUDESONIDE/FORMETEROL FUMARATE 160/4.5 mcg INHALER IH SCH ×2 (10:57→22:05)
[2021-01-14] MEDS ORDERED: ONDANSETRON 4 MG/2 ML VIAL IVPUSH PRN (12:14)
[2021-01-14] MEDS ORDERED: SODIUM CHLORIDE 1,000 ML IV SCH (15:00)
[2021-01-14] MEDS ORDERED: MAGNESIUM SULF 50% (8.12 MEQ/2 ML-1 GM VIAL) IVPB ONE ×2 (15:01→20:45)
[2021-01-14] MEDS: REMDESIVIR 100 MG in SODIUM CHLORIDE 250 ML IVPB SCH (15:41)
[2021-01-14] MEDS ORDERED: MAGNESIUM OXIDE 400 MG TABLET (FP) PO ONE (16:26)
[2021-01-14] MEDS: SENNOSIDES 8.6MG TABLET (FP) PO SCH (21:12)
[2021-01-14] MEDS: PANTOPRAZOLE 40 MG TABLET PO SCH (21:13)
[2021-01-14] MEDS: ROSUVASTATIN CA 10 MG TABLET (FP) PO SCH (21:13)
[2021-01-14] MEDS: LIDOCAINE PATCH REMOVAL MC SCH (22:05)
[2021-01-15] MEDS ORDERED: ESCITALOPRAM OXALATE 20 MG TABLET ONE (09:07)
[2021-01-15] MEDS ORDERED: ESCITALOPRAM OXALATE 10 MG TABLET ONE (09:07)
[2021-01-15] MEDS ORDERED: PT OWN MED DRAWER 7, Y5N ONE ×2 (09:08→21:57)
[2021-01-15] MEDS: FENOFIBRIC ACID 45 MG CAP PO SCH (09:46)
[2021-01-15] MEDS: risperiDONE 1 MG TABLET PO SCH ×2 (09:46→22:41)
[2021-01-15] MEDS: CLOPIDOGREL BISULFATE 75 MG TABLET (FP) PO SCH (09:46)
[2021-01-15] MEDS: DEXAMETHASONE SOD PHOSPHATE 4 MG/1 ML VIAL IVPUSH SCH (09:46)
[2021-01-15] MEDS: ASPIRIN 81 MG CHEWABLE TABLETS PO SCH (09:46)
[2021-01-15] MEDS: ASCORBIC ACID 500 MG TABLET (FP) PO SCH ×2 (09:47→22:38)
[2021-01-15] MEDS: ESCITALOPRAM OXALATE PO SCH (09:47)
[2021-01-15] MEDS: HEPARIN NA (PORCINE) 5,000 UNITS/ML 1ML VIAL SQ SCH ×2 (09:47→22:38)
[2021-01-15] MEDS: ZINC SULFATE 220 MG CAPSULE (FP) PO SCH (09:47)
[2021-01-15] MEDS: POLYETHYLENE GLYCOL (HEALTHYLAX) 3350 17 GM PACKET PO SCH (09:47)
[2021-01-15] MEDS: CHOLECALCIFEROL (VIT D3) 1,000 UNIT (25 MCG) TABLET PO SCH (09:47)
[2021-01-15] MEDS: LIDOCAINE 5% TOPICAL PATCH TP SCH (09:48)
[2021-01-15] MEDS: BUDESONIDE/FORMETEROL FUMARATE 160/4.5 mcg INHALER IH SCH ×2 (09:49→22:38)
[2021-01-15 13:10] LABS: HEMATOCRIT 29.8 % (35.4-49); HEMOGLOBIN 10.2 GM/dL (11.7-16.9); MCH 32.3 pg (25.7-33.7); MCHC 34.3 g/dl (32.0-35.9); MEAN CELL VOLUME 94.1 fl (80-96); MEAN PLT VOLUME 7.3 fl (7.5-11.1); PLATELET COUNT 286 10^3/uL (134-434); RBC 3.16 M/mm3 (4.00-5.60); RDW 13.6 % (11.9-15.9); WHITE BLOOD COUNT 13.8 K/mm3 (4.0-10.0)
[2021-01-15 13:36] LABS: ALBUMIN 2.3 g/dl (3.4-5.0); CALCIUM 8.5 mg/dL (8.5-10.1)
[2021-01-15 13:37] LABS: BLOOD UREA NITROGEN 31.3 mg/dL (7-18); MAGNESIUM 2.2 mg/dL (1.8-2.4)
[2021-01-15 13:41] LABS: BILIRUBIN,TOTAL 0.2 mg/dL (0.2-1)
[2021-01-15 14:29] LABS: ANISOCYTOSIS 0; MACROCYTOSIS 0; PLATELET ESTIMATE NORMAL
[2021-01-15] MEDS: REMDESIVIR 100 MG in SODIUM CHLORIDE 250 ML IVPB SCH (15:07)
[2021-01-15] MEDS: SENNOSIDES 8.6MG TABLET (FP) PO SCH (22:36)
[2021-01-15] MEDS: ROSUVASTATIN CA 10 MG TABLET (FP) PO SCH (22:37)
[2021-01-15] MEDS: PANTOPRAZOLE 40 MG TABLET PO SCH (22:37)
[2021-01-15] MEDS: LIDOCAINE PATCH REMOVAL MC SCH (22:39)
[2021-01-16] MEDS ORDERED: ESCITALOPRAM OXALATE 20 MG TABLET ONE (08:31)
[2021-01-16] MEDS ORDERED: ESCITALOPRAM OXALATE 10 MG TABLET ONE (08:31)
[2021-01-16] MEDS ORDERED: PT OWN MED DRAWER 7, Y5N ONE ×2 (08:32→22:36)
[2021-01-16 09:07] LABS: BASO % 0.1 % (0-2.0); HEMATOCRIT 30.8 % (35.4-49); HEMOGLOBIN 10.8 GM/dL (11.7-16.9); LYMPH % 4.6 % (8-40); MCH 33.1 pg (25.7-33.7); MCHC 35.2 g/dl (32.0-35.9); MEAN CELL VOLUME 94.2 fl (80-96); MEAN PLT VOLUME 7.6 fl (7.5-11.1); MONO % 6.7 % (3.8-10.2); NEUT % 88.6 % (42.8-82.8); PLATELET COUNT 335 10^3/uL (134-434); RBC 3.27 M/mm3 (4.00-5.60); RDW 13.3 % (11.9-15.9); WHITE BLOOD COUNT 13.6 K/mm3 (4.0-10.0)
[2021-01-16 09:23] LABS: ALBUMIN 2.3 g/dl (3.4-5.0); CALCIUM 8.6 mg/dL (8.5-10.1); MAGNESIUM 1.8 mg/dL (1.8-2.4)
[2021-01-16 09:26] LABS: CREATININE 0.9 mg/dL (0.55-1.3)
[2021-01-16 09:28] LABS: BILIRUBIN,TOTAL 0.3 mg/dL (0.2-1); TOT PROT 4.9 g/dl (6.4-8.2)
[2021-01-16] MEDS: POLYETHYLENE GLYCOL (HEALTHYLAX) 3350 17 GM PACKET PO SCH (10:00)
[2021-01-16] MEDS: CLOPIDOGREL BISULFATE 75 MG TABLET (FP) PO SCH (10:00)
[2021-01-16] MEDS: ASCORBIC ACID 500 MG TABLET (FP) PO SCH ×2 (10:00→22:34)
[2021-01-16] MEDS: ASPIRIN 81 MG CHEWABLE TABLETS PO SCH (10:00)
[2021-01-16] MEDS: DEXAMETHASONE SOD PHOSPHATE 4 MG/1 ML VIAL IVPUSH SCH (10:00)
[2021-01-16] MEDS: ZINC SULFATE 220 MG CAPSULE (FP) PO SCH (10:00)
[2021-01-16] MEDS: HEPARIN NA (PORCINE) 5,000 UNITS/ML 1ML VIAL SQ SCH ×2 (10:00→22:35)
[2021-01-16] MEDS: CHOLECALCIFEROL (VIT D3) 1,000 UNIT (25 MCG) TABLET PO SCH (10:00)
[2021-01-16] MEDS: ESCITALOPRAM OXALATE PO SCH (10:00)
[2021-01-16] MEDS: FENOFIBRIC ACID 45 MG CAP PO SCH (10:01)
[2021-01-16] MEDS: risperiDONE 1 MG TABLET PO SCH ×2 (10:01→22:34)
[2021-01-16] MEDS: BUDESONIDE/FORMETEROL FUMARATE 160/4.5 mcg INHALER IH SCH ×2 (10:01→22:35)
[2021-01-16] MEDS: LIDOCAINE 5% TOPICAL PATCH TP SCH (10:22)
[2021-01-16] MEDS: ACETAMINOPHEN 325 MG TABLET (FP) PO PRN (13:35)
[2021-01-16] MEDS: REMDESIVIR 100 MG in SODIUM CHLORIDE 250 ML IVPB SCH (16:27)
[2021-01-16] MEDS: ROSUVASTATIN CA 10 MG TABLET (FP) PO SCH (22:34)
[2021-01-16] MEDS: SENNOSIDES 8.6MG TABLET (FP) PO SCH (22:34)
[2021-01-16] MEDS: LIDOCAINE PATCH REMOVAL MC SCH (22:35)
[2021-01-16] MEDS: PANTOPRAZOLE 40 MG TABLET PO SCH (22:37)
[2021-01-17 08:36] LABS: BASO % 0.1 % (0-2.0); HEMATOCRIT 31.2 % (35.4-49); HEMOGLOBIN 10.9 GM/dL (11.7-16.9); LYMPH % 8.3 % (8-40); MCH 32.8 pg (25.7-33.7); MCHC 34.9 g/dl (32.0-35.9); MEAN CELL VOLUME 94.1 fl (80-96); MEAN PLT VOLUME 7.1 fl (7.5-11.1); MONO % 7.7 % (3.8-10.2); NEUT % 83.9 % (42.8-82.8); PLATELET COUNT 388 10^3/uL (134-434); RBC 3.32 M/mm3 (4.00-5.60); RDW 13.2 % (11.9-15.9); WHITE BLOOD COUNT 11.3 K/mm3 (4.0-10.0)
[2021-01-17 09:11] LABS: ALBUMIN 2.4 g/dl (3.4-5.0)
[2021-01-17 09:12] LABS: BLOOD UREA NITROGEN 32.2 mg/dL (7-18)
[2021-01-17 09:13] LABS: BILIRUBIN,TOTAL 0.3 mg/dL (0.2-1); CALCIUM 9.2 mg/dL (8.5-10.1); TOT PROT 5.2 g/dl (6.4-8.2)
[2021-01-17 09:14] LABS: MAGNESIUM 2.1 mg/dL (1.8-2.4)
[2021-01-17] MEDS ORDERED: ESCITALOPRAM OXALATE 10 MG TABLET ONE (10:43)
[2021-01-17] MEDS ORDERED: ESCITALOPRAM OXALATE 20 MG TABLET ONE (10:44)
[2021-01-17] MEDS: POLYETHYLENE GLYCOL (HEALTHYLAX) 3350 17 GM PACKET PO SCH (11:03)
[2021-01-17] MEDS: ASPIRIN 81 MG CHEWABLE TABLETS PO SCH (11:04)
[2021-01-17] MEDS: ACETAMINOPHEN 325 MG TABLET (FP) PO PRN (11:04)
[2021-01-17] MEDS: HEPARIN NA (PORCINE) 5,000 UNITS/ML 1ML VIAL SQ SCH ×2 (11:05→21:56)
[2021-01-17] MEDS: ZINC SULFATE 220 MG CAPSULE (FP) PO SCH (11:06)
[2021-01-17] MEDS: ESCITALOPRAM OXALATE PO SCH (11:06)
[2021-01-17] MEDS: CHOLECALCIFEROL (VIT D3) 1,000 UNIT (25 MCG) TABLET PO SCH (11:06)
[2021-01-17] MEDS: ASCORBIC ACID 500 MG TABLET (FP) PO SCH ×2 (11:06→21:55)
[2021-01-17] MEDS: CLOPIDOGREL BISULFATE 75 MG TABLET (FP) PO SCH (11:06)
[2021-01-17] MEDS: BUDESONIDE/FORMETEROL FUMARATE 160/4.5 mcg INHALER IH SCH ×2 (11:07→21:56)
[2021-01-17] MEDS: LIDOCAINE 5% TOPICAL PATCH TP SCH (11:07)
[2021-01-17] MEDS: risperiDONE 1 MG TABLET PO SCH ×2 (11:08→21:56)
[2021-01-17] MEDS: FENOFIBRIC ACID 45 MG CAP PO SCH (11:09)
[2021-01-17] MEDS: DEXAMETHASONE 4 MG TABLET (FP) PO SCH (11:33)
[2021-01-17] MEDS: DEXAMETHASONE SOD PHOSPHATE 4 MG/1 ML VIAL IVPUSH SCH (12:16)
[2021-01-17] MEDS ORDERED: PT OWN MED DRAWER 7, Y5N ONE (21:30)
[2021-01-17] MEDS: SENNOSIDES 8.6MG TABLET (FP) PO SCH (21:55)
[2021-01-17] MEDS: PANTOPRAZOLE 40 MG TABLET PO SCH (21:55)
[2021-01-17] MEDS: ROSUVASTATIN CA 10 MG TABLET (FP) PO SCH (21:56)
[2021-01-17] MEDS: LIDOCAINE PATCH REMOVAL MC SCH (21:56)
[2021-01-18 10:07] LABS: BASO % 0.2 % (0-2.0); EOS % 0.1 % (0-4.5); HEMATOCRIT 33.7 % (35.4-49); HEMOGLOBIN 11.8 GM/dL (11.7-16.9); MCHC 34.9 g/dl (32.0-35.9); MEAN CELL VOLUME 94.5 fl (80-96); MEAN PLT VOLUME 7.1 fl (7.5-11.1); MONO % 9.4 % (3.8-10.2); NEUT % 75.3 % (42.8-82.8); PLATELET COUNT 427 10^3/uL (134-434); RBC 3.57 M/mm3 (4.00-5.60); RDW 13.3 % (11.9-15.9); WHITE BLOOD COUNT 10.6 K/mm3 (4.0-10.0)
[2021-01-18 10:23] LABS: CALCIUM 9.3 mg/dL (8.5-10.1)
[2021-01-18 10:24] LABS: ALBUMIN 2.6 g/dl (3.4-5.0); BLOOD UREA NITROGEN 30.5 mg/dL (7-18); MAGNESIUM 2.1 mg/dL (1.8-2.4)
[2021-01-18 10:27] LABS: CREATININE 0.9 mg/dL (0.55-1.3)
[2021-01-18 10:29] LABS: BILIRUBIN,TOTAL 0.4 mg/dL (0.2-1); TOT PROT 5.4 g/dl (6.4-8.2)
[2021-01-18] MEDS ORDERED: ESCITALOPRAM OXALATE 10 MG TABLET ONE (10:50)
[2021-01-18] MEDS ORDERED: ESCITALOPRAM OXALATE 20 MG TABLET ONE (10:50)
[2021-01-18] MEDS ORDERED: PT OWN MED DRAWER 7, Y5N ONE ×2 (10:51→21:55)
[2021-01-18] MEDS: LIDOCAINE 5% TOPICAL PATCH TP SCH (10:59)
[2021-01-18] MEDS: CHOLECALCIFEROL (VIT D3) 1,000 UNIT (25 MCG) TABLET PO SCH (10:59)
[2021-01-18] MEDS: FENOFIBRIC ACID 45 MG CAP PO SCH (10:59)
[2021-01-18] MEDS: ASPIRIN 81 MG CHEWABLE TABLETS PO SCH (10:59)
[2021-01-18] MEDS: POLYETHYLENE GLYCOL (HEALTHYLAX) 3350 17 GM PACKET PO SCH (10:59)
[2021-01-18] MEDS: HEPARIN NA (PORCINE) 5,000 UNITS/ML 1ML VIAL SQ SCH ×2 (11:00→22:00)
[2021-01-18] MEDS: CLOPIDOGREL BISULFATE 75 MG TABLET (FP) PO SCH (11:00)
[2021-01-18] MEDS: ZINC SULFATE 220 MG CAPSULE (FP) PO SCH (11:00)
[2021-01-18] MEDS: DEXAMETHASONE 4 MG TABLET (FP) PO SCH (11:00)
[2021-01-18] MEDS: risperiDONE 1 MG TABLET PO SCH ×2 (11:00→23:39)
[2021-01-18] MEDS: ESCITALOPRAM OXALATE PO SCH (11:00)
[2021-01-18] MEDS: ASCORBIC ACID 500 MG TABLET (FP) PO SCH ×2 (11:00→21:59)
[2021-01-18] MEDS: BUDESONIDE/FORMETEROL FUMARATE 160/4.5 mcg INHALER IH SCH ×2 (11:01→22:00)
[2021-01-18 13:27] LABS: ANISOCYTOSIS 0; MACROCYTOSIS 0; PLATELET ESTIMATE NORMAL
[2021-01-18] MEDS: PANTOPRAZOLE 40 MG TABLET PO SCH (21:59)
[2021-01-18] MEDS: SENNOSIDES 8.6MG TABLET (FP) PO SCH (21:59)
[2021-01-18] MEDS: ROSUVASTATIN CA 10 MG TABLET (FP) PO SCH (21:59)
[2021-01-18] MEDS: LIDOCAINE PATCH REMOVAL MC SCH (23:39)
[2021-01-19 08:55] LABS: HEMATOCRIT 32.1 % (35.4-49); HEMOGLOBIN 11.2 GM/dL (11.7-16.9); MCH 32.9 pg (25.7-33.7); MEAN CELL VOLUME 94.1 fl (80-96); MEAN PLT VOLUME 6.9 fl (7.5-11.1); PLATELET COUNT 422 10^3/uL (134-434); RBC 3.41 M/mm3 (4.00-5.60); RDW 13.1 % (11.9-15.9); WHITE BLOOD COUNT 13.3 K/mm3 (4.0-10.0)
[2021-01-19 09:16] LABS: BLOOD UREA NITROGEN 32.4 mg/dL (7-18)
[2021-01-19 09:17] LABS: ALBUMIN 2.7 g/dl (3.4-5.0); MAGNESIUM 1.9 mg/dL (1.8-2.4)
[2021-01-19 09:18] LABS: BILIRUBIN,TOTAL 0.4 mg/dL (0.2-1)
[2021-01-19 09:19] LABS: TOT PROT 5.3 g/dl (6.4-8.2)
[2021-01-19 10:06] LABS: ANISOCYTOSIS 1+; MACROCYTOSIS 0; PLATELET ESTIMATE NORMAL
[2021-01-19] MEDS ORDERED: ESCITALOPRAM OXALATE 10 MG TABLET ONE (10:18)
[2021-01-19] MEDS ORDERED: ESCITALOPRAM OXALATE 20 MG TABLET ONE (10:18)
[2021-01-19] MEDS ORDERED: PT OWN MED DRAWER 7, Y5N ONE (10:19)
[2021-01-19] MEDS: CLOPIDOGREL BISULFATE 75 MG TABLET (FP) PO SCH (10:49)
[2021-01-19] MEDS: CHOLECALCIFEROL (VIT D3) 1,000 UNIT (25 MCG) TABLET PO SCH (10:49)
[2021-01-19] MEDS: ASCORBIC ACID 500 MG TABLET (FP) PO SCH ×2 (10:49→21:30)
[2021-01-19] MEDS: ESCITALOPRAM OXALATE PO SCH (10:49)
[2021-01-19] MEDS: POLYETHYLENE GLYCOL (HEALTHYLAX) 3350 17 GM PACKET PO SCH ×2 (10:50→10:53)
[2021-01-19] MEDS: LIDOCAINE 5% TOPICAL PATCH TP SCH (10:50)
[2021-01-19] MEDS: DEXAMETHASONE 4 MG TABLET (FP) PO SCH (10:50)
[2021-01-19] MEDS: HEPARIN NA (PORCINE) 5,000 UNITS/ML 1ML VIAL SQ SCH ×2 (10:50→21:28)
[2021-01-19] MEDS: ASPIRIN 81 MG CHEWABLE TABLETS PO SCH (10:50)
[2021-01-19] MEDS: ZINC SULFATE 220 MG CAPSULE (FP) PO SCH (10:50)
[2021-01-19] MEDS: BUDESONIDE/FORMETEROL FUMARATE 160/4.5 mcg INHALER IH SCH ×2 (10:51→21:29)
[2021-01-19] MEDS: FENOFIBRIC ACID 45 MG CAP PO SCH (10:51)
[2021-01-19] MEDS: risperiDONE 1 MG TABLET PO SCH ×2 (10:51→21:32)
[2021-01-19] MEDS: ROSUVASTATIN CA 10 MG TABLET (FP) PO SCH (21:28)
[2021-01-19] MEDS: LIDOCAINE PATCH REMOVAL MC SCH (21:29)
[2021-01-19] MEDS: PANTOPRAZOLE 40 MG TABLET PO SCH (21:29)
[2021-01-19] MEDS: SENNOSIDES 8.6MG TABLET (FP) PO SCH (21:29)
[2021-01-20] MEDS ORDERED: ESCITALOPRAM OXALATE 10 MG TABLET ONE (11:43)
[2021-01-20] MEDS ORDERED: ESCITALOPRAM OXALATE 20 MG TABLET ONE (11:44)
[2021-01-20] MEDS ORDERED: PT OWN MED DRAWER 7, Y5N ONE (11:45)
[2021-01-20] MEDS: LIDOCAINE 5% TOPICAL PATCH TP SCH (11:53)
[2021-01-20] MEDS: ESCITALOPRAM OXALATE PO SCH (11:54)
[2021-01-20] MEDS: POLYETHYLENE GLYCOL (HEALTHYLAX) 3350 17 GM PACKET PO SCH (11:54)
[2021-01-20] MEDS: risperiDONE 1 MG TABLET PO SCH ×2 (11:54→21:57)
[2021-01-20] MEDS: FENOFIBRIC ACID 45 MG CAP PO SCH (11:54)
[2021-01-20] MEDS: ZINC SULFATE 220 MG CAPSULE (FP) PO SCH (11:55)
[2021-01-20] MEDS: ASCORBIC ACID 500 MG TABLET (FP) PO SCH ×2 (11:55→21:57)
[2021-01-20] MEDS: BUDESONIDE/FORMETEROL FUMARATE 160/4.5 mcg INHALER IH SCH ×2 (11:55→21:58)
[2021-01-20] MEDS: ASPIRIN 81 MG CHEWABLE TABLETS PO SCH (11:55)
[2021-01-20] MEDS: CLOPIDOGREL BISULFATE 75 MG TABLET (FP) PO SCH (11:55)
[2021-01-20] MEDS: HEPARIN NA (PORCINE) 5,000 UNITS/ML 1ML VIAL SQ SCH ×2 (11:56→21:58)
[2021-01-20] MEDS: CHOLECALCIFEROL (VIT D3) 1,000 UNIT (25 MCG) TABLET PO SCH (11:56)
[2021-01-20] MEDS: DEXAMETHASONE 4 MG TABLET (FP) PO SCH (11:58)
[2021-01-20] MEDS: SENNOSIDES 8.6MG TABLET (FP) PO SCH (21:57)
[2021-01-20] MEDS: PANTOPRAZOLE 40 MG TABLET PO SCH (21:57)
[2021-01-20] MEDS: ROSUVASTATIN CA 10 MG TABLET (FP) PO SCH (21:57)
[2021-01-20] MEDS: LIDOCAINE PATCH REMOVAL MC SCH (21:58)
[2021-01-21 09:13] LABS: BASO % 0.1 % (0-2.0); EOS % 0.2 % (0-4.5); HEMATOCRIT 37.3 % (35.4-49); HEMOGLOBIN 12.9 GM/dL (11.7-16.9); LYMPH % 11.1 % (8-40); MCH 32.9 pg (25.7-33.7); MCHC 34.6 g/dl (32.0-35.9); MEAN CELL VOLUME 95.1 fl (80-96); MONO % 6.6 % (3.8-10.2); PLATELET COUNT 502 10^3/uL (134-434); RBC 3.92 M/mm3 (4.00-5.60); RDW 13.6 % (11.9-15.9); WHITE BLOOD COUNT 13.7 K/mm3 (4.0-10.0)
[2021-01-21 09:34] LABS: ALBUMIN 3.1 g/dl (3.4-5.0); BLOOD UREA NITROGEN 32.1 mg/dL (7-18); CALCIUM 9.2 mg/dL (8.5-10.1); MAGNESIUM 2.2 mg/dL (1.8-2.4)
[2021-01-21 09:38] LABS: CREATININE 1.1 mg/dL (0.55-1.3)
[2021-01-21 09:39] LABS: BILIRUBIN,TOTAL 0.6 mg/dL (0.2-1); TOT PROT 5.9 g/dl (6.4-8.2)
[2021-01-21] MEDS ORDERED: ESCITALOPRAM OXALATE 20 MG TABLET ONE (11:24)
[2021-01-21] MEDS ORDERED: ESCITALOPRAM OXALATE 10 MG TABLET ONE (11:24)
[2021-01-21] MEDS ORDERED: PT OWN MED DRAWER 7, Y5N ONE (11:25)
[2021-01-21] MEDS: LIDOCAINE 5% TOPICAL PATCH TP SCH (12:01)
[2021-01-21] MEDS: ZINC SULFATE 220 MG CAPSULE (FP) PO SCH (12:02)
[2021-01-21] MEDS: ASPIRIN 81 MG CHEWABLE TABLETS PO SCH (12:02)
[2021-01-21] MEDS: ASCORBIC ACID 500 MG TABLET (FP) PO SCH ×2 (12:02→21:26)
[2021-01-21] MEDS: FENOFIBRIC ACID 45 MG CAP PO SCH (12:03)
[2021-01-21] MEDS: CHOLECALCIFEROL (VIT D3) 1,000 UNIT (25 MCG) TABLET PO SCH (12:03)
[2021-01-21] MEDS: ESCITALOPRAM OXALATE PO SCH (12:03)
[2021-01-21] MEDS: POLYETHYLENE GLYCOL (HEALTHYLAX) 3350 17 GM PACKET PO SCH (12:03)
[2021-01-21] MEDS: HEPARIN NA (PORCINE) 5,000 UNITS/ML 1ML VIAL SQ SCH ×2 (12:03→21:26)
[2021-01-21] MEDS: CLOPIDOGREL BISULFATE 75 MG TABLET (FP) PO SCH (12:03)
[2021-01-21] MEDS: DEXAMETHASONE 4 MG TABLET (FP) PO SCH (12:04)
[2021-01-21] MEDS: risperiDONE 1 MG TABLET PO SCH ×2 (12:04→21:26)
[2021-01-21] MEDS: BUDESONIDE/FORMETEROL FUMARATE 160/4.5 mcg INHALER IH SCH ×2 (12:04→21:26)
[2021-01-21] MEDS: LISINOPRIL 5 MG TABLET PO SCH (17:23)
[2021-01-21] MEDS: ROSUVASTATIN CA 10 MG TABLET (FP) PO SCH (21:26)
[2021-01-21] MEDS: SENNOSIDES 8.6MG TABLET (FP) PO SCH (21:26)
[2021-01-21] MEDS: PANTOPRAZOLE 40 MG TABLET PO SCH (21:26)
[2021-01-21] MEDS: LIDOCAINE PATCH REMOVAL MC SCH (21:26)
[2021-01-22] MEDS: ACETAMINOPHEN 325 MG TABLET (FP) PO PRN (05:04)
[2021-01-22] MEDS ORDERED: ESCITALOPRAM OXALATE 10 MG TABLET ONE (09:05)
[2021-01-22] MEDS ORDERED: ESCITALOPRAM OXALATE 20 MG TABLET ONE (09:05)
[2021-01-22] MEDS ORDERED: PT OWN MED DRAWER 7, Y5N ONE ×2 (09:05→21:24)
[2021-01-22] MEDS: POLYETHYLENE GLYCOL (HEALTHYLAX) 3350 17 GM PACKET PO SCH (09:07)
[2021-01-22] MEDS: ASPIRIN 81 MG CHEWABLE TABLETS PO SCH (09:09)
[2021-01-22] MEDS: HEPARIN NA (PORCINE) 5,000 UNITS/ML 1ML VIAL SQ SCH ×2 (09:09→21:31)
[2021-01-22] MEDS: LIDOCAINE 5% TOPICAL PATCH TP SCH ×2 (09:09→13:53)
[2021-01-22] MEDS: risperiDONE 1 MG TABLET PO SCH ×2 (09:10→21:33)
[2021-01-22] MEDS: ASCORBIC ACID 500 MG TABLET (FP) PO SCH ×2 (09:10→21:31)
[2021-01-22] MEDS: ESCITALOPRAM OXALATE PO SCH (09:10)
[2021-01-22] MEDS: BUDESONIDE/FORMETEROL FUMARATE 160/4.5 mcg INHALER IH SCH ×2 (09:11→21:33)
[2021-01-22] MEDS: LISINOPRIL 5 MG TABLET PO SCH (09:11)
[2021-01-22] MEDS: ZINC SULFATE 220 MG CAPSULE (FP) PO SCH (09:11)
[2021-01-22] MEDS: CLOPIDOGREL BISULFATE 75 MG TABLET (FP) PO SCH (09:11)
[2021-01-22] MEDS: FENOFIBRIC ACID 45 MG CAP PO SCH (09:11)
[2021-01-22] MEDS: CHOLECALCIFEROL (VIT D3) 1,000 UNIT (25 MCG) TABLET PO SCH (09:11)
[2021-01-22 09:50] LABS: BASO % 0.3 % (0-2.0); EOS % 0.6 % (0-4.5); HEMATOCRIT 36.5 % (35.4-49); HEMOGLOBIN 12.4 GM/dL (11.7-16.9); MCH 32.7 pg (25.7-33.7); MCHC 33.9 g/dl (32.0-35.9); MEAN CELL VOLUME 96.3 fl (80-96); MEAN PLT VOLUME 6.9 fl (7.5-11.1); MONO % 5.6 % (3.8-10.2); NEUT % 79.5 % (42.8-82.8); PLATELET COUNT 448 10^3/uL (134-434); RBC 3.79 M/mm3 (4.00-5.60); RDW 13.5 % (11.9-15.9); WHITE BLOOD COUNT 12.3 K/mm3 (4.0-10.0)
[2021-01-22 10:10] LABS: ALBUMIN 2.8 g/dl (3.4-5.0); BLOOD UREA NITROGEN 36.9 mg/dL (7-18); CALCIUM 9.1 mg/dL (8.5-10.1); MAGNESIUM 2.3 mg/dL (1.8-2.4)
[2021-01-22 10:14] LABS: CREATININE 1.4 mg/dL (0.55-1.3)
[2021-01-22 10:15] LABS: BILIRUBIN,TOTAL 0.4 mg/dL (0.2-1); TOT PROT 5.6 g/dl (6.4-8.2)
[2021-01-22] MEDS ORDERED: SODIUM CHLORIDE 0.45% 1,000 ML IV SCH (15:30)
[2021-01-22] MEDS: SODIUM ZIRCONIUM CYCLOSILICATE (LOKELMA) 5 GM PACKET PO SCH (17:22)
[2021-01-22] MEDS: ROSUVASTATIN CA 10 MG TABLET (FP) PO SCH (21:31)
[2021-01-22] MEDS: SENNOSIDES 8.6MG TABLET (FP) PO SCH (21:31)
[2021-01-22] MEDS: LIDOCAINE PATCH REMOVAL MC SCH (21:32)
[2021-01-22] MEDS: PANTOPRAZOLE 40 MG TABLET PO SCH (21:36)
[2021-01-23] MEDS: SODIUM ZIRCONIUM CYCLOSILICATE (LOKELMA) 5 GM PACKET PO SCH (00:39)
[2021-01-23 10:35] LABS: BASO % 0.2 % (0-2.0); EOS % 0.3 % (0-4.5); HEMATOCRIT 36.1 % (35.4-49); HEMOGLOBIN 12.4 GM/dL (11.7-16.9); LYMPH % 9.4 % (8-40); MCH 32.8 pg (25.7-33.7); MCHC 34.3 g/dl (32.0-35.9); MEAN CELL VOLUME 95.7 fl (80-96); MONO % 3.7 % (3.8-10.2); NEUT % 86.4 % (42.8-82.8); PLATELET COUNT 419 10^3/uL (134-434); RBC 3.77 M/mm3 (4.00-5.60); RDW 13.4 % (11.9-15.9); WHITE BLOOD COUNT 16.4 K/mm3 (4.0-10.0)
[2021-01-23 11:04] LABS: ALBUMIN 2.9 g/dl (3.4-5.0); BLOOD UREA NITROGEN 32.1 mg/dL (7-18)
[2021-01-23 11:05] LABS: CALCIUM 8.6 mg/dL (8.5-10.1)
[2021-01-23 11:07] LABS: CREATININE 1.2 mg/dL (0.55-1.3)
[2021-01-23 11:09] LABS: BILIRUBIN,TOTAL 0.6 mg/dL (0.2-1); TOT PROT 5.6 g/dl (6.4-8.2)
[2021-01-23] MEDS ORDERED: ESCITALOPRAM OXALATE 20 MG TABLET ONE (12:09)
[2021-01-23] MEDS ORDERED: ESCITALOPRAM OXALATE 10 MG TABLET ONE (12:09)
[2021-01-23] MEDS: ESCITALOPRAM OXALATE PO SCH (12:38)
[2021-01-23] MEDS: CHOLECALCIFEROL (VIT D3) 1,000 UNIT (25 MCG) TABLET PO SCH (12:38)
[2021-01-23] MEDS: HEPARIN NA (PORCINE) 5,000 UNITS/ML 1ML VIAL SQ SCH ×2 (12:38→21:56)
[2021-01-23] MEDS: ZINC SULFATE 220 MG CAPSULE (FP) PO SCH (12:39)
[2021-01-23] MEDS: CLOPIDOGREL BISULFATE 75 MG TABLET (FP) PO SCH (12:39)
[2021-01-23] MEDS: ASPIRIN 81 MG CHEWABLE TABLETS PO SCH (12:39)
[2021-01-23] MEDS: ASCORBIC ACID 500 MG TABLET (FP) PO SCH ×2 (12:39→21:55)
[2021-01-23] MEDS: risperiDONE 1 MG TABLET PO SCH ×2 (12:40→21:55)
[2021-01-23] MEDS: FENOFIBRIC ACID 45 MG CAP PO SCH (12:41)
[2021-01-23] MEDS: LIDOCAINE 5% TOPICAL PATCH TP SCH (12:47)
[2021-01-23] MEDS: POLYETHYLENE GLYCOL (HEALTHYLAX) 3350 17 GM PACKET PO SCH (12:49)
[2021-01-23] MEDS: BUDESONIDE/FORMETEROL FUMARATE 160/4.5 mcg INHALER IH SCH ×2 (12:51→21:56)
[2021-01-23] MEDS ORDERED: PT OWN MED DRAWER 7, Y5N ONE (21:33)
[2021-01-23] MEDS: PANTOPRAZOLE 40 MG TABLET PO SCH (21:53)
[2021-01-23] MEDS: ROSUVASTATIN CA 10 MG TABLET (FP) PO SCH (21:54)
[2021-01-23] MEDS: SENNOSIDES 8.6MG TABLET (FP) PO SCH (21:55)
[2021-01-23] MEDS: LIDOCAINE PATCH REMOVAL MC SCH (21:56)
[2021-01-24] MEDS ORDERED: ESCITALOPRAM OXALATE 10 MG TABLET ONE (08:43)
[2021-01-24] MEDS ORDERED: ESCITALOPRAM OXALATE 20 MG TABLET ONE (08:43)
[2021-01-24] MEDS ORDERED: PT OWN MED DRAWER 7, Y5N ONE ×2 (08:44→22:55)
[2021-01-24] MEDS: ASPIRIN 81 MG CHEWABLE TABLETS PO SCH (10:36)
[2021-01-24] MEDS: HEPARIN NA (PORCINE) 5,000 UNITS/ML 1ML VIAL SQ SCH ×2 (10:36→23:57)
[2021-01-24] MEDS: ASCORBIC ACID 500 MG TABLET (FP) PO SCH ×2 (10:36→23:56)
[2021-01-24] MEDS: CHOLECALCIFEROL (VIT D3) 1,000 UNIT (25 MCG) TABLET PO SCH (10:37)
[2021-01-24] MEDS: ESCITALOPRAM OXALATE PO SCH (10:37)
[2021-01-24] MEDS: CLOPIDOGREL BISULFATE 75 MG TABLET (FP) PO SCH (10:38)
[2021-01-24] MEDS: ZINC SULFATE 220 MG CAPSULE (FP) PO SCH (10:38)
[2021-01-24] MEDS: risperiDONE 1 MG TABLET PO SCH ×2 (10:38→23:58)
[2021-01-24] MEDS: POLYETHYLENE GLYCOL (HEALTHYLAX) 3350 17 GM PACKET PO SCH (10:38)
[2021-01-24] MEDS: BUDESONIDE/FORMETEROL FUMARATE 160/4.5 mcg INHALER IH SCH ×2 (10:39→23:59)
[2021-01-24] MEDS: FENOFIBRIC ACID 45 MG CAP PO SCH (10:39)
[2021-01-24] MEDS: LIDOCAINE 5% TOPICAL PATCH TP SCH (12:59)
[2021-01-24] MEDS: SENNOSIDES 8.6MG TABLET (FP) PO SCH (23:52)
[2021-01-24] MEDS: PANTOPRAZOLE 40 MG TABLET PO SCH (23:56)
[2021-01-24] MEDS: ROSUVASTATIN CA 10 MG TABLET (FP) PO SCH (23:56)
[2021-01-24] MEDS: LIDOCAINE PATCH REMOVAL MC SCH (23:58)
[2021-01-25] MEDS ORDERED: PT OWN MED DRAWER 7, Y5N ONE ×2 (10:26→21:14)
[2021-01-25] MEDS ORDERED: ESCITALOPRAM OXALATE 20 MG TABLET ONE (10:26)
[2021-01-25] MEDS ORDERED: ESCITALOPRAM OXALATE 10 MG TABLET ONE (10:26)
[2021-01-25] MEDS: ZINC SULFATE 220 MG CAPSULE (FP) PO SCH (10:29)
[2021-01-25] MEDS: CHOLECALCIFEROL (VIT D3) 1,000 UNIT (25 MCG) TABLET PO SCH (10:29)
[2021-01-25] MEDS: ASPIRIN 81 MG CHEWABLE TABLETS PO SCH (10:29)
[2021-01-25] MEDS: LIDOCAINE 5% TOPICAL PATCH TP SCH (10:29)
[2021-01-25] MEDS: CLOPIDOGREL BISULFATE 75 MG TABLET (FP) PO SCH (10:29)
[2021-01-25] MEDS: ASCORBIC ACID 500 MG TABLET (FP) PO SCH ×2 (10:29→21:41)
[2021-01-25] MEDS: HEPARIN NA (PORCINE) 5,000 UNITS/ML 1ML VIAL SQ SCH ×2 (10:29→21:42)
[2021-01-25] MEDS: ESCITALOPRAM OXALATE PO SCH (10:29)
[2021-01-25] MEDS: POLYETHYLENE GLYCOL (HEALTHYLAX) 3350 17 GM PACKET PO SCH (10:30)
[2021-01-25] MEDS: risperiDONE 1 MG TABLET PO SCH ×2 (10:32→21:41)
[2021-01-25] MEDS: BUDESONIDE/FORMETEROL FUMARATE 160/4.5 mcg INHALER IH SCH ×2 (10:32→21:42)
[2021-01-25] MEDS: FENOFIBRIC ACID 45 MG CAP PO SCH (10:32)
[2021-01-25] MEDS: ACETAMINOPHEN 325 MG TABLET (FP) PO PRN ×2 (12:56→21:41)
[2021-01-25] MEDS: ROSUVASTATIN CA 10 MG TABLET (FP) PO SCH (21:41)
[2021-01-25] MEDS: PANTOPRAZOLE 40 MG TABLET PO SCH (21:41)
[2021-01-25] MEDS: SENNOSIDES 8.6MG TABLET (FP) PO SCH (21:41)
[2021-01-25] MEDS: LIDOCAINE PATCH REMOVAL MC SCH (21:42)
[2021-01-26 09:48] LABS: ALBUMIN 2.8 g/dl (3.4-5.0); BLOOD UREA NITROGEN 25.9 mg/dL (7-18); CALCIUM 8.9 mg/dL (8.5-10.1)
[2021-01-26 09:53] LABS: BILIRUBIN,TOTAL 0.6 mg/dL (0.2-1); TOT PROT 5.7 g/dl (6.4-8.2)
[2021-01-26] MEDS ORDERED: ESCITALOPRAM OXALATE 20 MG TABLET ONE (10:32)
[2021-01-26] MEDS ORDERED: ESCITALOPRAM OXALATE 10 MG TABLET ONE (10:32)
[2021-01-26] MEDS ORDERED: PT OWN MED DRAWER 7, Y5N ONE ×2 (10:33→21:02)
[2021-01-26] MEDS: POLYETHYLENE GLYCOL (HEALTHYLAX) 3350 17 GM PACKET PO SCH (10:36)
[2021-01-26] MEDS: ZINC SULFATE 220 MG CAPSULE (FP) PO SCH (10:36)
[2021-01-26] MEDS: ASPIRIN 81 MG CHEWABLE TABLETS PO SCH (10:37)
[2021-01-26] MEDS: CHOLECALCIFEROL (VIT D3) 1,000 UNIT (25 MCG) TABLET PO SCH (10:37)
[2021-01-26] MEDS: ESCITALOPRAM OXALATE PO SCH (10:37)
[2021-01-26] MEDS: FENOFIBRIC ACID 45 MG CAP PO SCH (10:37)
[2021-01-26] MEDS: CLOPIDOGREL BISULFATE 75 MG TABLET (FP) PO SCH (10:37)
[2021-01-26] MEDS: ASCORBIC ACID 500 MG TABLET (FP) PO SCH ×2 (10:37→21:12)
[2021-01-26] MEDS: BUDESONIDE/FORMETEROL FUMARATE 160/4.5 mcg INHALER IH SCH ×2 (10:38→21:12)
[2021-01-26] MEDS: risperiDONE 1 MG TABLET PO SCH ×2 (10:38→21:12)
[2021-01-26] MEDS: HEPARIN NA (PORCINE) 5,000 UNITS/ML 1ML VIAL SQ SCH ×2 (10:38→21:12)
[2021-01-26] MEDS: LIDOCAINE 5% TOPICAL PATCH TP SCH (10:39)
[2021-01-26] MEDS: ACETAMINOPHEN 325 MG TABLET (FP) PO PRN (17:01)
[2021-01-26] MEDS: ROSUVASTATIN CA 10 MG TABLET (FP) PO SCH (21:12)
[2021-01-26] MEDS: LIDOCAINE PATCH REMOVAL MC SCH (21:12)
[2021-01-26] MEDS: SENNOSIDES 8.6MG TABLET (FP) PO SCH (21:12)
[2021-01-26] MEDS: PANTOPRAZOLE 40 MG TABLET PO SCH (21:12)
[2021-01-27] MEDS ORDERED: ESCITALOPRAM OXALATE 20 MG TABLET ONE (10:27)
[2021-01-27] MEDS ORDERED: ESCITALOPRAM OXALATE 10 MG TABLET ONE (10:27)
[2021-01-27] MEDS: POLYETHYLENE GLYCOL (HEALTHYLAX) 3350 17 GM PACKET PO SCH (10:37)
[2021-01-27] MEDS: ESCITALOPRAM OXALATE PO SCH (10:38)
[2021-01-27] MEDS: ZINC SULFATE 220 MG CAPSULE (FP) PO SCH (10:38)
[2021-01-27] MEDS: CHOLECALCIFEROL (VIT D3) 1,000 UNIT (25 MCG) TABLET PO SCH (10:38)
[2021-01-27] MEDS: ASCORBIC ACID 500 MG TABLET (FP) PO SCH (10:38)
[2021-01-27] MEDS: FENOFIBRIC ACID 45 MG CAP PO SCH (10:38)
[2021-01-27] MEDS: ASPIRIN 81 MG CHEWABLE TABLETS PO SCH (10:38)
[2021-01-27] MEDS: CLOPIDOGREL BISULFATE 75 MG TABLET (FP) PO SCH (10:38)
[2021-01-27] MEDS: LIDOCAINE 5% TOPICAL PATCH TP SCH (10:39)
[2021-01-27] MEDS: BUDESONIDE/FORMETEROL FUMARATE 160/4.5 mcg INHALER IH SCH (10:39)
[2021-01-27] MEDS: HEPARIN NA (PORCINE) 5,000 UNITS/ML 1ML VIAL SQ SCH (10:39)
[2021-01-27] MEDS: risperiDONE 1 MG TABLET PO SCH (10:39)
[2021-01-27 16:47] VITALS: BP 121/62; PULSE 87; TEMP 98.5
== END 2021-01-27 14:01 | DRG 177 ==
LOC: JER 15:02 → JERBED 21:22 → J5S 01-12 03:42
PROVIDERS: ADMIT Internal Medicine; ATTEND Nurse Practitioner Family
PROC: XW033E5 Introduction of Remdesivir Anti-infective into Peripheral Vein, Percutaneous Approach, New Technology Group 5 (ICD-10-PCS; principal; 2021-01-12)
DX: U07.1 COVID-19 (principal); J12.82 Pneumonia due to coronavirus disease 2019; N17.9 Acute kidney failure, unspecified; I50.32 Chronic diastolic (congestive) heart failure; G91.2 (Idiopathic) normal pressure hydrocephalus; I13.0 Hypertensive heart and chronic kidney disease with heart failure and stage 1 through stage 4 chronic kidney disease, or unspecified chronic kidney disease; R78.81 Bacteremia; E87.1 Hypo-osmolality and hyponatremia; I10 Essential (primary) hypertension; J44.9 Chronic obstructive pulmonary disease, unspecified; E78.5 Hyperlipidemia, unspecified; K21.9 Gastro-esophageal reflux disease without esophagitis; N18.9 Chronic kidney disease, unspecified; I25.10 Atherosclerotic heart disease of native coronary artery without angina pectoris; R63.0 Anorexia; I25.2 Old myocardial infarction; E87.5 Hyperkalemia; F25.9 Schizoaffective disorder, unspecified; R09.02 Hypoxemia; F09 Unspecified mental disorder due to known physiological condition
CPT/HCPCS: 36415; 71045-TC-FY; 80053; 81003; 82248; 82550; 82553; 82728; 83605; 83615; 83735; 84484; 85025; 85379; 85610; 85730; 86140; 87040; 87086; 87186; 87804; 93005; 93010; 97116-GP; 97162-GP; 99285-25; C9399; C9803; J1644; J2794; U0003; U0005

== ENCOUNTER 2021-02-18 20:46 | Inpatient (IN) | payer BC ==
[2021-02-18] MEDS ORDERED: ONDANSETRON 4 MG/2 ML VIAL IVPUSH ONE (21:09)
[2021-02-18] MEDS ORDERED: SODIUM CHLORIDE 500 ML IV STA ×2 (21:09→22:15)
[2021-02-18] MEDS ORDERED: ONDANSETRON 4 MG/2 ML VIAL ONE (21:30)
[2021-02-18 21:42] LABS: VENOUS BASE EXCESS 0.4 mmol/L (-2-2); VENOUS O2 SATURATION 47.3 % (70-80); VENOUS PCO2 37.2 mmHg (38-52); VENOUS PH 7.434 (7.310-7.410)
[2021-02-18 21:44] LABS: HEMATOCRIT 39.5 % (35.4-49); HEMOGLOBIN 13.5 GM/dL (11.7-16.9); MCH 32.5 pg (25.7-33.7); MCHC 34.3 g/dl (32.0-35.9); MEAN CELL VOLUME 94.8 fl (80-96); MEAN PLT VOLUME 6.7 fl (7.5-11.1); PLATELET COUNT 487 10^3/uL (134-434); RBC 4.17 M/mm3 (4.00-5.60); RDW 14.5 % (11.9-15.9); WHITE BLOOD COUNT 22.7 K/mm3 (4.0-10.0)
[2021-02-18 22:01] LABS: CHLORIDE 93 mmol/L (98-107); SODIUM 135 mmol/L (136-145)
[2021-02-18 22:03] LABS: CALCIUM 11.2 mg/dL (8.5-10.1)
[2021-02-18 22:04] LABS: ALBUMIN 3.4 g/dl (3.4-5.0); ANION GAP 16 MMOL/L (8-16); BLOOD UREA NITROGEN 66.8 mg/dL (7-18); CO2 26 mmol/L (21-32); GLUCOSE,RANDOM 197 mg/dL (74-106); MAGNESIUM 2.6 mg/dL (1.8-2.4)
[2021-02-18 22:07] LABS: CREATININE 4.7 mg/dL (0.55-1.3); PHOSPHOROUS 6.1 mg/dL (2.5-4.9); SGOT/AST 23 U/L (15-37); SGPT/ALT 32 U/L (13-61)
[2021-02-18 22:08] LABS: BILIRUBIN,TOTAL 0.6 mg/dL (0.2-1); TOT PROT 7.5 g/dl (6.4-8.2)
[2021-02-18 22:09] LABS: ALK PHOS 94 U/L (45-117)
[2021-02-18 22:12] LABS: N-TERMINAL BNP 920.2 pg/ml (5-450)
[2021-02-18 22:17] LABS: LACTIC ACID 5.1 mmol/L (0.4-2.0)
[2021-02-18] MEDS ORDERED: VANCOMYCIN 1 GM in D5W (PRE-DOCKED) 1,000 MG/250 ML IVPB ONE (22:22)
[2021-02-18] MEDS ORDERED: PIPERACILLIN/TAZOB 3.375 GM 3.375 GM in DEXTROSE 5%-WATER - 50 ML IVPB ONE (22:23)
[2021-02-18] MEDS ORDERED: SODIUM CHLORIDE 1,000 ML IV STA (22:25)
[2021-02-18] MEDS ORDERED: VANCOMYCIN 1 GRAM (PRE-DOCKED) 1,000 MG/250 ML BAG IVPB ONE (22:33)
[2021-02-18] MEDS ORDERED: PIPERACILLIN/TAZOB 3.375 GM 3.375 GM/50 ML BAG IVPB ONE (22:34)
[2021-02-18 22:53] LABS: ANISOCYTOSIS 0; MACROCYTOSIS 0
[2021-02-18 23:12] LABS: LIPASE 68 U/L (73-393)
[2021-02-19] MEDS ORDERED: ACETAMINOPHEN 325 MG TABLET (FP) PO PRN (01:01)
[2021-02-19] MEDS: NOREPINEPHRINE D5W PREMIX 16,000 MCG/500 ML BAG IVPB SCH (02:15)
[2021-02-19] MEDS: SODIUM CHLORIDE 1,000 ML IV SCH ×3 (02:16→21:32)
[2021-02-19] MEDS ORDERED: ONDANSETRON 4 MG/2 ML VIAL IVPUSH ONE (02:49)
[2021-02-19] MEDS ORDERED: SODIUM CHLORIDE 1,000 ML IV STA (03:07)
[2021-02-19] MEDS ORDERED: PIPERACILLIN/TAZOBACTAM 2.25 GM VIAL IVPB ONE ×3 (03:43→16:48)
[2021-02-19] MEDS ORDERED: DEXTROSE 5%-WATER - 50 ML IVPB ONE ×3 (03:43→16:48)
[2021-02-19] MEDS: PANTOPRAZOLE SODIUM 40 MG VIAL IVPUSH SCH ×3 (03:57→21:32)
[2021-02-19] MEDS: PIPERACILLIN/TAZOB 2.25 GM 2.25 GM in DEXTROSE 5%-WATER - 50 ML IVPB SCH ×3 (03:57→17:18)
[2021-02-19] MEDS ORDERED: PIPERACILLIN/TAZOB 2.25 GM 2.25 GM in DEXTROSE 5%-WATER - 50 ML IVPB SCH (04:00)
[2021-02-19 04:54] LABS: HEMOGLOBIN 10.9 GM/dL (11.7-16.9); MCH 32.7 pg (25.7-33.7); MCHC 34.2 g/dl (32.0-35.9); MEAN CELL VOLUME 95.8 fl (80-96); MEAN PLT VOLUME 6.9 fl (7.5-11.1); PLATELET COUNT 367 10^3/uL (134-434); RBC 3.34 M/mm3 (4.00-5.60); RDW 14.7 % (11.9-15.9); WHITE BLOOD COUNT 23.2 K/mm3 (4.0-10.0)
[2021-02-19 05:14] LABS: BLOOD UREA NITROGEN 68.8 mg/dL (7-18)
[2021-02-19 05:17] LABS: CREATININE 4.4 mg/dL (0.55-1.3)
[2021-02-19 05:18] LABS: PHOSPHOROUS 5.4 mg/dL (2.5-4.9)
[2021-02-19 05:19] LABS: BILIRUBIN,TOTAL 0.7 mg/dL (0.2-1); TOT PROT 6.1 g/dl (6.4-8.2)
[2021-02-19 05:21] LABS: ANISOCYTOSIS 1+; MACROCYTOSIS 0; PLATELET ESTIMATE NORMAL
[2021-02-19 05:25] LABS: ALBUMIN 2.7 g/dl (3.4-5.0)
[2021-02-19 05:28] LABS: CALCIUM 9.3 mg/dL (8.5-10.1)
[2021-02-19] MEDS: HEPARIN NA (PORCINE) 5,000 UNITS/ML 1ML VIAL SQ SCH ×3 (07:09→21:32)
[2021-02-19 07:11] LABS: INR 1.14 (0.83-1.09); PROTHROMBIN TIME (PATIENT) 14.1 SEC (9.7-13.0)
[2021-02-19 07:14] LABS: ACTIVATED PTT 25.4 SECONDS (25.2-36.5)
[2021-02-19] MEDS: FENOFIBRIC ACID 45 MG CAP PO SCH (09:15)
[2021-02-19] MEDS ORDERED: amLODIPine BESYLATE 5 MG TABLET (FP) PO SCH (10:00)
[2021-02-19] MEDS ORDERED: LISINOPRIL 5 MG TABLET PO SCH (10:00)
[2021-02-19] MEDS ORDERED: PANTOPRAZOLE 40 MG TABLET PO SCH (10:00)
[2021-02-19] MEDS ORDERED: ONDANSETRON 4 MG/2 ML VIAL IVPUSH PRN (10:00)
[2021-02-19 11:15] LABS: YEAST NONE SEEN (NEGATIVE)
[2021-02-19 11:20] LABS: EPI CELLS >36 /uL (0-25.1); HYALINE CASTS 633 /uL (0-3.1); PH,URINE 5.5 (5.0-8.0); URINE APPEARANCE TURBID; URINE BACTERIA 747 /uL (0-1359); URINE BILIRUBIN NEGATIVE (NEGATIVE); URINE COLOR DK YELLOW; URINE GLUCOSE (UA) NEGATIVE (NEGATIVE); URINE KETONE TRACE (NEGATIVE); URINE LEUK ESTERASE 3+ (NEGATIVE); URINE NITRITE NEGATIVE (NEGATIVE); URINE PROTEIN 3+ (NEGATIVE); URINE RBC 140 /uL (0-23.9); URINE WBC 9451 /uL (0-25.8)
[2021-02-19] MEDS ORDERED: SODIUM CHLORIDE 500 ML IV STA ×2 (11:38→15:33)
[2021-02-19] MEDS: ESCITALOPRAM OXALATE 10 MG TABLET PO SCH (12:00)
[2021-02-19] MEDS: CLOPIDOGREL BISULFATE 75 MG TABLET (FP) PO SCH (12:00)
[2021-02-19] MEDS: ASPIRIN 81 MG CHEWABLE TABLETS PO SCH (12:00)
[2021-02-19] MEDS: risperiDONE 1 MG TABLET PO SCH ×2 (12:01→21:32)
[2021-02-19] MEDS: ROSUVASTATIN CA 10 MG TABLET (FP) PO SCH (21:31)
[2021-02-19] MEDS: SENNOSIDES 8.6MG TABLET (FP) PO SCH (21:32)
[2021-02-19] MEDS ORDERED: VANCOMYCIN 1 GRAM (PRE-DOCKED) 1,000 MG/250 ML BAG IVPB SCH (22:00)
[2021-02-19] MEDS ORDERED: VANCOMYCIN 1 GM in D5W (PRE-DOCKED) 1,000 MG/250 ML IVPB SCH (22:00)
[2021-02-19] MEDS ORDERED: ZOLPIDEM TARTRATE 5 MG TABLET PO PRN (22:00)
[2021-02-19] MEDS ORDERED: PT OWN MED DRAWER 7, Y5N ONE (23:35)
[2021-02-20] MEDS: PIPERACILLIN/TAZOB 2.25 GM 2.25 GM in DEXTROSE 5%-WATER - 50 ML IVPB SCH ×2 (01:17→09:34)
[2021-02-20] MEDS ORDERED: DEXTROSE 5%-WATER - 50 ML IVPB ONE ×3 (01:22→17:03)
[2021-02-20] MEDS ORDERED: PIPERACILLIN/TAZOBACTAM 2.25 GM VIAL IVPB ONE ×2 (01:22→09:12)
[2021-02-20] MEDS: NOREPINEPHRINE D5W PREMIX 16,000 MCG/500 ML BAG IVPB SCH (06:44)
[2021-02-20] MEDS: HEPARIN NA (PORCINE) 5,000 UNITS/ML 1ML VIAL SQ SCH ×3 (06:44→21:16)
[2021-02-20] MEDS: SODIUM CHLORIDE 1,000 ML IV SCH ×2 (06:45→13:55)
[2021-02-20 07:34] LABS: BASO % 0.4 % (0-2.0); EOS % 0.3 % (0-4.5); HEMATOCRIT 25.3 % (35.4-49); HEMOGLOBIN 8.6 GM/dL (11.7-16.9); LYMPH % 8.4 % (8-40); MCH 33.1 pg (25.7-33.7); MCHC 34.1 g/dl (32.0-35.9); MEAN PLT VOLUME 6.6 fl (7.5-11.1); MONO % 9.7 % (3.8-10.2); NEUT % 81.2 % (42.8-82.8); PLATELET COUNT 290 10^3/uL (134-434); RBC 2.61 M/mm3 (4.00-5.60); RDW 14.4 % (11.9-15.9); WHITE BLOOD COUNT 12.1 K/mm3 (4.0-10.0)
[2021-02-20 07:58] LABS: MAGNESIUM 1.5 mg/dL (1.8-2.4)
[2021-02-20 08:01] LABS: CREATININE 1.7 mg/dL (0.55-1.3); PHOSPHOROUS 1.8 mg/dL (2.5-4.9)
[2021-02-20 08:03] LABS: BILIRUBIN,TOTAL 0.3 mg/dL (0.2-1); TOT PROT 4.9 g/dl (6.4-8.2)
[2021-02-20 08:06] LABS: ALBUMIN 2.1 g/dl (3.4-5.0); BLOOD UREA NITROGEN 39.8 mg/dL (7-18)
[2021-02-20] MEDS: CLOPIDOGREL BISULFATE 75 MG TABLET (FP) PO SCH (09:35)
[2021-02-20] MEDS: ASPIRIN 81 MG CHEWABLE TABLETS PO SCH (09:35)
[2021-02-20] MEDS: ESCITALOPRAM OXALATE 10 MG TABLET PO SCH (09:35)
[2021-02-20] MEDS: PANTOPRAZOLE SODIUM 40 MG VIAL IVPUSH SCH ×2 (09:35→21:16)
[2021-02-20] MEDS: FENOFIBRIC ACID 45 MG CAP PO SCH (09:36)
[2021-02-20] MEDS ORDERED: PT OWN MED DRAWER 7, Y5N ONE (09:42)
[2021-02-20] MEDS: risperiDONE 1 MG TABLET PO SCH ×2 (09:49→21:19)
[2021-02-20] MEDS ORDERED: MAGNESIUM SULF 50% (8.12 MEQ/2 ML-1 GM VIAL) IVPB ONE (12:28)
[2021-02-20] MEDS ORDERED: NAPH,MB-DB/K PH,MBDB POWDER PACKET PO ONE (12:30)
[2021-02-20] MEDS ORDERED: PIPERACILLIN/TAZOBACTAM 3.375 GM VIAL IVPB ONE (17:03)
[2021-02-20] MEDS: PIPERACILLIN/TAZOB 3.375 GM 3.375 GM in DEXTROSE 5%-WATER - 50 ML IVPB SCH (17:05)
[2021-02-20] MEDS ORDERED: MIDODRINE HCL 5 MG TABLET PO SCH (18:00)
[2021-02-20] MEDS: SENNOSIDES 8.6MG TABLET (FP) PO SCH (21:16)
[2021-02-20] MEDS: ROSUVASTATIN CA 10 MG TABLET (FP) PO SCH (21:16)
[2021-02-21] MEDS ORDERED: PIPERACILLIN/TAZOBACTAM 3.375 GM VIAL IVPB ONE ×2 (00:37→09:36)
[2021-02-21] MEDS ORDERED: DEXTROSE 5%-WATER - 50 ML IVPB ONE ×3 (00:37→17:18)
[2021-02-21] MEDS: PIPERACILLIN/TAZOB 3.375 GM 3.375 GM in DEXTROSE 5%-WATER - 50 ML IVPB SCH ×2 (01:11→09:47)
[2021-02-21] MEDS: NOREPINEPHRINE D5W PREMIX 16,000 MCG/500 ML BAG IVPB SCH (03:56)
[2021-02-21] MEDS: HEPARIN NA (PORCINE) 5,000 UNITS/ML 1ML VIAL SQ SCH ×3 (05:41→21:28)
[2021-02-21 07:07] LABS: BASO % 0.5 % (0-2.0); HEMATOCRIT 23.3 % (35.4-49); LYMPH % 10.3 % (8-40); MCH 33.6 pg (25.7-33.7); MCHC 34.5 g/dl (32.0-35.9); MEAN CELL VOLUME 97.3 fl (80-96); MEAN PLT VOLUME 6.9 fl (7.5-11.1); MONO % 9.1 % (3.8-10.2); NEUT % 79.1 % (42.8-82.8); PLATELET COUNT 250 10^3/uL (134-434); RBC 2.39 M/mm3 (4.00-5.60); RDW 14.3 % (11.9-15.9); WHITE BLOOD COUNT 8.5 K/mm3 (4.0-10.0)
[2021-02-21 07:34] LABS: ALBUMIN 1.9 g/dl (3.4-5.0); BLOOD UREA NITROGEN 19.9 mg/dL (7-18); CALCIUM 8.1 mg/dL (8.5-10.1); MAGNESIUM 1.6 mg/dL (1.8-2.4)
[2021-02-21 07:37] LABS: CREATININE 0.7 mg/dL (0.55-1.3)
[2021-02-21 07:39] LABS: BILIRUBIN,TOTAL 0.5 mg/dL (0.2-1); TOT PROT 4.4 g/dl (6.4-8.2)
[2021-02-21] MEDS ORDERED: MAGNESIUM SULF 50% (8.12 MEQ/2 ML-1 GM VIAL) IVPB ONE (08:45)
[2021-02-21] MEDS: SODIUM CHLORIDE 1,000 ML IV SCH (09:00)
[2021-02-21] MEDS ORDERED: PT OWN MED DRAWER 7, Y5N ONE (09:35)
[2021-02-21] MEDS: PANTOPRAZOLE SODIUM 40 MG VIAL IVPUSH SCH ×2 (09:47→21:28)
[2021-02-21] MEDS: CLOPIDOGREL BISULFATE 75 MG TABLET (FP) PO SCH (09:49)
[2021-02-21] MEDS: ESCITALOPRAM OXALATE 10 MG TABLET PO SCH (09:49)
[2021-02-21] MEDS: ASPIRIN 81 MG CHEWABLE TABLETS PO SCH (09:50)
[2021-02-21] MEDS: FENOFIBRIC ACID 45 MG CAP PO SCH (09:51)
[2021-02-21] MEDS: risperiDONE 1 MG TABLET PO SCH ×2 (09:51→21:29)
[2021-02-21] MEDS: MIDODRINE HCL 5 MG TABLET PO SCH ×2 (14:25→17:26)
[2021-02-21] MEDS ORDERED: cefTRIAXone SODIUM 1 GM VIAL ONE (17:18)
[2021-02-21] MEDS: CEFTRIAXONE 1 GM in DEXTROSE 5%-WATER - 50 ML IVPB SCH (17:26)
[2021-02-21] MEDS: ROSUVASTATIN CA 10 MG TABLET (FP) PO SCH (21:28)
[2021-02-21] MEDS: SENNOSIDES 8.6MG TABLET (FP) PO SCH (21:29)
[2021-02-21] MEDS: DEUTETRABENAZINE 6 MG PO SCH ×2 (21:29→21:30)
[2021-02-22] MEDS: NOREPINEPHRINE D5W PREMIX 16,000 MCG/500 ML BAG IVPB SCH (05:28)
[2021-02-22] MEDS: HEPARIN NA (PORCINE) 5,000 UNITS/ML 1ML VIAL SQ SCH ×3 (05:28→21:57)
[2021-02-22 07:07] LABS: BASO % 0.4 % (0-2.0); EOS % 1.3 % (0-4.5); HEMATOCRIT 25.3 % (35.4-49); HEMOGLOBIN 8.8 GM/dL (11.7-16.9); LYMPH % 11.2 % (8-40); MCH 33.4 pg (25.7-33.7); MCHC 34.8 g/dl (32.0-35.9); MEAN PLT VOLUME 6.6 fl (7.5-11.1); MONO % 8.1 % (3.8-10.2); PLATELET COUNT 243 10^3/uL (134-434); RBC 2.64 M/mm3 (4.00-5.60); RDW 14.5 % (11.9-15.9); WHITE BLOOD COUNT 7.6 K/mm3 (4.0-10.0)
[2021-02-22 07:11] LABS: ALBUMIN 2.1 g/dl (3.4-5.0); BLOOD UREA NITROGEN 11.5 mg/dL (7-18); CALCIUM 8.3 mg/dL (8.5-10.1)
[2021-02-22 07:15] LABS: CREATININE 0.8 mg/dL (0.55-1.3)
[2021-02-22 07:16] LABS: BILIRUBIN,TOTAL 0.4 mg/dL (0.2-1); TOT PROT 4.6 g/dl (6.4-8.2)
[2021-02-22] MEDS ORDERED: PT OWN MED DRAWER 7, Y5N ONE ×5 (08:11→22:03)
[2021-02-22] MEDS ORDERED: DEXTROSE 5%-WATER - 50 ML IVPB ONE (08:12)
[2021-02-22] MEDS ORDERED: cefTRIAXone SODIUM 1 GM VIAL ONE (08:12)
[2021-02-22 08:57] LABS: MAGNESIUM 1.6 mg/dL (1.8-2.4)
[2021-02-22 09:01] LABS: PHOSPHOROUS 1.6 mg/dL (2.5-4.9)
[2021-02-22] MEDS: ASPIRIN 81 MG CHEWABLE TABLETS PO SCH (09:20)
[2021-02-22] MEDS: ESCITALOPRAM OXALATE 10 MG TABLET PO SCH (09:20)
[2021-02-22] MEDS: PANTOPRAZOLE SODIUM 40 MG VIAL IVPUSH SCH ×2 (09:20→21:58)
[2021-02-22] MEDS: FENOFIBRIC ACID 45 MG CAP PO SCH (09:21)
[2021-02-22] MEDS: MIDODRINE HCL 5 MG TABLET PO SCH ×3 (09:21→17:48)
[2021-02-22] MEDS: CLOPIDOGREL BISULFATE 75 MG TABLET (FP) PO SCH (09:21)
[2021-02-22] MEDS: risperiDONE 1 MG TABLET PO SCH ×2 (09:22→22:01)
[2021-02-22] MEDS: CEFTRIAXONE 1 GM in DEXTROSE 5%-WATER - 50 ML IVPB SCH (09:23)
[2021-02-22] MEDS: SODIUM CHLORIDE 1,000 ML IV SCH (12:37)
[2021-02-22] MEDS ORDERED: MAGNESIUM SULF 50% (8.12 MEQ/2 ML-1 GM VIAL) IVPB ONE (12:45)
[2021-02-22] MEDS ORDERED: POTASSIUM PHOSPHATE 30 MM in SODIUM CHLORIDE 250 ML IVPB ONE (13:30)
[2021-02-22] MEDS ORDERED: SODIUM CHLORIDE 0.45% 1,000 ML IV SCH (13:45)
[2021-02-22] MEDS: ROSUVASTATIN CA 10 MG TABLET (FP) PO SCH (21:57)
[2021-02-22] MEDS: SENNOSIDES 8.6MG TABLET (FP) PO SCH (21:59)
[2021-02-23] MEDS: HEPARIN NA (PORCINE) 5,000 UNITS/ML 1ML VIAL SQ SCH ×3 (05:52→22:08)
[2021-02-23 06:54] LABS: BASO % 0.7 % (0-2.0); EOS % 1.9 % (0-4.5); HEMATOCRIT 25.7 % (35.4-49); HEMOGLOBIN 8.9 GM/dL (11.7-16.9); LYMPH % 15.8 % (8-40); MCH 33.7 pg (25.7-33.7); MCHC 34.7 g/dl (32.0-35.9); MEAN CELL VOLUME 96.9 fl (80-96); MEAN PLT VOLUME 7.4 fl (7.5-11.1); MONO % 7.8 % (3.8-10.2); NEUT % 73.8 % (42.8-82.8); PLATELET COUNT 268 10^3/uL (134-434); RBC 2.65 M/mm3 (4.00-5.60); RDW 14.5 % (11.9-15.9); WHITE BLOOD COUNT 7.2 K/mm3 (4.0-10.0)
[2021-02-23 07:07] LABS: ALBUMIN 1.8 g/dl (3.4-5.0); BLOOD UREA NITROGEN 7.4 mg/dL (7-18); MAGNESIUM 1.5 mg/dL (1.8-2.4)
[2021-02-23 07:10] LABS: CREATININE 0.8 mg/dL (0.55-1.3); PHOSPHOROUS 2.6 mg/dL (2.5-4.9)
[2021-02-23 07:11] LABS: BILIRUBIN,TOTAL 0.2 mg/dL (0.2-1); TOT PROT 4.5 g/dl (6.4-8.2)
[2021-02-23] MEDS ORDERED: cefTRIAXone SODIUM 1 GM VIAL ONE (07:50)
[2021-02-23] MEDS ORDERED: DEXTROSE 5%-WATER - 50 ML IVPB ONE (07:50)
[2021-02-23] MEDS ORDERED: AMINO ACIDS/PROTEIN HYDROLYS 30 ML LIQUID.PKT PO SCH (08:00)
[2021-02-23] MEDS ORDERED: MAGNESIUM 2GM/50ML STERILE WATER IVPB IVPB ONE (08:15)
[2021-02-23] MEDS ORDERED: PT OWN MED DRAWER 7, Y5N ONE (09:38)
[2021-02-23] MEDS ORDERED: PANTOPRAZOLE SODIUM 40 MG VIAL IVPUSH SCH (10:00)
[2021-02-23] MEDS ORDERED: LYTES/YERBA SANTA 60 ML SPRAY MM SCH (10:00)
[2021-02-23] MEDS ORDERED: MULTIVITAMINS (DAILY MVI) TABLET (FP) PO SCH (10:00)
[2021-02-23] MEDS: CEFTRIAXONE 1 GM in DEXTROSE 5%-WATER - 50 ML IVPB SCH (10:17)
[2021-02-23] MEDS: MIDODRINE HCL 5 MG TABLET PO SCH ×3 (10:18→17:41)
[2021-02-23] MEDS: CLOPIDOGREL BISULFATE 75 MG TABLET (FP) PO SCH (10:18)
[2021-02-23] MEDS: ASPIRIN 81 MG CHEWABLE TABLETS PO SCH (10:18)
[2021-02-23] MEDS: ESCITALOPRAM OXALATE 10 MG TABLET PO SCH (10:20)
[2021-02-23] MEDS: FENOFIBRIC ACID 45 MG CAP PO SCH (10:20)
[2021-02-23] MEDS: risperiDONE 1 MG TABLET PO SCH ×2 (10:20→22:08)
[2021-02-23] MEDS ORDERED: MAGNESIUM SULF 50% (8.12 MEQ/2 ML-1 GM VIAL) IVPB ONE (14:00)
[2021-02-23] MEDS ORDERED: ONDANSETRON 4 MG/2 ML VIAL IVPUSH PRN (17:00)
[2021-02-23] MEDS ORDERED: ACETAMINOPHEN 325 MG TABLET (FP) PO PRN (17:00)
[2021-02-23] MEDS: ROSUVASTATIN CA 10 MG TABLET (FP) PO SCH (22:08)
[2021-02-23] MEDS: SENNOSIDES 8.6MG TABLET (FP) PO SCH (22:08)
[2021-02-23] MEDS: LYTES/YERBA SANTA 60 ML SPRAY MM SCH (22:08)
[2021-02-24] MEDS: HEPARIN NA (PORCINE) 5,000 UNITS/ML 1ML VIAL SQ SCH ×3 (05:53→22:35)
[2021-02-24] MEDS ORDERED: cefTRIAXone SODIUM 1 GM VIAL ONE (09:24)
[2021-02-24] MEDS ORDERED: DEXTROSE 5%-WATER - 50 ML IVPB ONE (09:24)
[2021-02-24] MEDS: LACTOBACILLUS ACIDOPHILUS 1 TABLET PO SCH (09:38)
[2021-02-24] MEDS: ESCITALOPRAM OXALATE 10 MG TABLET PO SCH (09:38)
[2021-02-24] MEDS: LYTES/YERBA SANTA 60 ML SPRAY MM SCH ×2 (09:39→22:50)
[2021-02-24] MEDS: FENOFIBRIC ACID 45 MG CAP PO SCH (09:39)
[2021-02-24] MEDS: MULTIVITAMINS (DAILY MVI) TABLET (FP) PO SCH (09:39)
[2021-02-24] MEDS: CLOPIDOGREL BISULFATE 75 MG TABLET (FP) PO SCH (09:39)
[2021-02-24] MEDS: ASPIRIN 81 MG CHEWABLE TABLETS PO SCH (09:39)
[2021-02-24] MEDS: MIDODRINE HCL 5 MG TABLET PO SCH ×3 (09:39→17:02)
[2021-02-24] MEDS: AMINO ACIDS/PROTEIN HYDROLYS 30 ML LIQUID.PKT PO SCH (09:40)
[2021-02-24] MEDS: risperiDONE 1 MG TABLET PO SCH ×2 (09:40→22:48)
[2021-02-24] MEDS: PANTOPRAZOLE SODIUM 40 MG VIAL IVPUSH SCH (09:40)
[2021-02-24] MEDS ORDERED: CEFTRIAXONE 1 GM in DEXTROSE 5%-WATER - 50 ML IVPB SCH (10:00)
[2021-02-24] MEDS ORDERED: INSULIN (NOVOLOG) ASPART 100 UNITS/ML 10ML VIAL ONE (12:24)
[2021-02-24] MEDS ORDERED: MAGNESIUM SULF 50% (8.12 MEQ/2 ML-1 GM VIAL) IVPB ONE (19:28)
[2021-02-24 21:21] LABS: MAGNESIUM 1.7 mg/dL (1.8-2.4)
[2021-02-24 21:24] LABS: CREATININE 0.7 mg/dL (0.55-1.3); PHOSPHOROUS 2.2 mg/dL (2.5-4.9)
[2021-02-24 21:29] LABS: BLOOD UREA NITROGEN 7.8 mg/dL (7-18)
[2021-02-24] MEDS: ROSUVASTATIN CA 10 MG TABLET (FP) PO SCH (22:35)
[2021-02-24] MEDS: SENNOSIDES 8.6MG TABLET (FP) PO SCH (22:50)
[2021-02-25] MEDS: HEPARIN NA (PORCINE) 5,000 UNITS/ML 1ML VIAL SQ SCH ×3 (05:39→21:12)
[2021-02-25 06:47] LABS: BASO % 0.8 % (0-2.0); EOS % 2.3 % (0-4.5); HEMOGLOBIN 8.9 GM/dL (11.7-16.9); LYMPH % 12.8 % (8-40); MCH 33.2 pg (25.7-33.7); MCHC 34.1 g/dl (32.0-35.9); MEAN CELL VOLUME 97.4 fl (80-96); MEAN PLT VOLUME 7.3 fl (7.5-11.1); MONO % 6.6 % (3.8-10.2); NEUT % 77.5 % (42.8-82.8); PLATELET COUNT 325 10^3/uL (134-434); RBC 2.67 M/mm3 (4.00-5.60); RDW 15.1 % (11.9-15.9); WHITE BLOOD COUNT 8.6 K/mm3 (4.0-10.0)
[2021-02-25 07:18] LABS: ALBUMIN 1.9 g/dl (3.4-5.0); BLOOD UREA NITROGEN 6.8 mg/dL (7-18); CALCIUM 8.4 mg/dL (8.5-10.1); MAGNESIUM 1.8 mg/dL (1.8-2.4)
[2021-02-25 07:20] LABS: CREATININE 0.7 mg/dL (0.55-1.3)
[2021-02-25 07:21] LABS: PHOSPHOROUS 2.3 mg/dL (2.5-4.9)
[2021-02-25 07:23] LABS: TOT PROT 4.6 g/dl (6.4-8.2)
[2021-02-25 07:24] LABS: BILIRUBIN,TOTAL 0.5 mg/dL (0.2-1)
[2021-02-25] MEDS: LYTES/YERBA SANTA 60 ML SPRAY MM SCH ×2 (10:34→21:14)
[2021-02-25] MEDS: MULTIVITAMINS (DAILY MVI) TABLET (FP) PO SCH (10:34)
[2021-02-25] MEDS: ASPIRIN 81 MG CHEWABLE TABLETS PO SCH (10:34)
[2021-02-25] MEDS: CLOPIDOGREL BISULFATE 75 MG TABLET (FP) PO SCH (10:34)
[2021-02-25] MEDS: ESCITALOPRAM OXALATE 10 MG TABLET PO SCH (10:34)
[2021-02-25] MEDS: FENOFIBRIC ACID 45 MG CAP PO SCH (10:34)
[2021-02-25] MEDS: LACTOBACILLUS ACIDOPHILUS 1 TABLET PO SCH (10:34)
[2021-02-25] MEDS: MIDODRINE HCL 5 MG TABLET PO SCH ×3 (10:34→17:17)
[2021-02-25] MEDS: AMINO ACIDS/PROTEIN HYDROLYS 30 ML LIQUID.PKT PO SCH (10:34)
[2021-02-25] MEDS: PANTOPRAZOLE SODIUM 40 MG VIAL IVPUSH SCH (10:34)
[2021-02-25] MEDS: risperiDONE 1 MG TABLET PO SCH ×2 (10:35→22:03)
[2021-02-25] MEDS: AMOX TR/POT CLAV 500MG/125MG TABLETS (FP) PO SCH (17:17)
[2021-02-25] MEDS: SENNOSIDES 8.6MG TABLET (FP) PO SCH (21:13)
[2021-02-25] MEDS: ROSUVASTATIN CA 10 MG TABLET (FP) PO SCH (21:13)
[2021-02-26] MEDS: HEPARIN NA (PORCINE) 5,000 UNITS/ML 1ML VIAL SQ SCH ×3 (05:32→21:29)
[2021-02-26 08:43] LABS: BASO % 0.4 % (0-2.0); EOS % 1.8 % (0-4.5); HEMATOCRIT 24.9 % (35.4-49); HEMOGLOBIN 8.7 GM/dL (11.7-16.9); LYMPH % 10.1 % (8-40); MCHC 34.9 g/dl (32.0-35.9); MEAN CELL VOLUME 97.3 fl (80-96); MEAN PLT VOLUME 7.3 fl (7.5-11.1); MONO % 6.1 % (3.8-10.2); NEUT % 81.6 % (42.8-82.8); PLATELET COUNT 367 10^3/uL (134-434); RBC 2.56 M/mm3 (4.00-5.60); RDW 15.2 % (11.9-15.9); WHITE BLOOD COUNT 9.5 K/mm3 (4.0-10.0)
[2021-02-26 09:16] LABS: CALCIUM 8.3 mg/dL (8.5-10.1)
[2021-02-26 09:17] LABS: ALBUMIN 1.9 g/dl (3.4-5.0); BLOOD UREA NITROGEN 5.1 mg/dL (7-18)
[2021-02-26 09:18] LABS: MAGNESIUM 1.4 mg/dL (1.8-2.4)
[2021-02-26 09:20] LABS: CREATININE 0.8 mg/dL (0.55-1.3); PHOSPHOROUS 2.5 mg/dL (2.5-4.9)
[2021-02-26 09:21] LABS: BILIRUBIN,TOTAL 0.6 mg/dL (0.2-1)
[2021-02-26 09:22] LABS: TOT PROT 4.7 g/dl (6.4-8.2)
[2021-02-26] MEDS ORDERED: PT OWN MED DRAWER 7, Y5N ONE ×3 (09:36→18:14)
[2021-02-26 09:39] LABS: N-TERMINAL BNP 34768.1 pg/ml (5-450)
[2021-02-26] MEDS: AMINO ACIDS/PROTEIN HYDROLYS 30 ML LIQUID.PKT PO SCH (10:30)
[2021-02-26] MEDS: ESCITALOPRAM OXALATE 10 MG TABLET PO SCH (10:30)
[2021-02-26] MEDS: MULTIVITAMINS (DAILY MVI) TABLET (FP) PO SCH (10:31)
[2021-02-26] MEDS: MIDODRINE HCL 5 MG TABLET PO SCH ×3 (10:31→18:39)
[2021-02-26] MEDS: LACTOBACILLUS ACIDOPHILUS 1 TABLET PO SCH (10:31)
[2021-02-26] MEDS: ASPIRIN 81 MG CHEWABLE TABLETS PO SCH (10:32)
[2021-02-26] MEDS: AMOX TR/POT CLAV 500MG/125MG TABLETS (FP) PO SCH ×3 (10:32→21:32)
[2021-02-26] MEDS: risperiDONE 1 MG TABLET PO SCH ×2 (10:32→22:54)
[2021-02-26] MEDS: FENOFIBRIC ACID 45 MG CAP PO SCH (10:32)
[2021-02-26] MEDS: PANTOPRAZOLE SODIUM 40 MG VIAL IVPUSH SCH (10:33)
[2021-02-26] MEDS: LYTES/YERBA SANTA 60 ML SPRAY MM SCH ×2 (10:34→22:54)
[2021-02-26] MEDS: CLOPIDOGREL BISULFATE 75 MG TABLET (FP) PO SCH (10:40)
[2021-02-26] MEDS ORDERED: SODIUM CHLORIDE 0.9% 500 ML INFUS.BAG IV ONE ×2 (12:39)
[2021-02-26] MEDS ORDERED: ONDANSETRON 4 MG/2 ML VIAL IVPUSH PRN (14:24)
[2021-02-26] MEDS ORDERED: ACETAMINOPHEN 325 MG TABLET (FP) PO PRN (14:24)
[2021-02-26] MEDS ORDERED: MAGNESIUM SULF 50% (8.12 MEQ/2 ML-1 GM VIAL) IVPB ONE (14:49)
[2021-02-26 16:44] LABS: BASO % 0.3 % (0-2.0); EOS % 1.5 % (0-4.5); HEMATOCRIT 26.9 % (35.4-49); LYMPH % 10.4 % (8-40); MCH 32.5 pg (25.7-33.7); MCHC 33.3 g/dl (32.0-35.9); MEAN CELL VOLUME 97.5 fl (80-96); MEAN PLT VOLUME 7.1 fl (7.5-11.1); MONO % 6.8 % (3.8-10.2); PLATELET COUNT 356 10^3/uL (134-434); RBC 2.75 M/mm3 (4.00-5.60); RDW 15.2 % (11.9-15.9); WHITE BLOOD COUNT 8.1 K/mm3 (4.0-10.0)
[2021-02-26 17:05] LABS: CALCIUM 8.6 mg/dL (8.5-10.1)
[2021-02-26 17:06] LABS: ALBUMIN 2.1 g/dl (3.4-5.0); BLOOD UREA NITROGEN 7.3 mg/dL (7-18); MAGNESIUM 1.7 mg/dL (1.8-2.4)
[2021-02-26 17:08] LABS: BILIRUBIN,TOTAL 0.2 mg/dL (0.2-1); PHOSPHOROUS 2.9 mg/dL (2.5-4.9)
[2021-02-26 17:09] LABS: CREATININE 0.8 mg/dL (0.55-1.3)
[2021-02-26] MEDS ORDERED: ROSUVASTATIN CA 10 MG TABLET (FP) PO SCH (22:00)
[2021-02-26] MEDS ORDERED: SENNOSIDES 8.6MG TABLET (FP) PO SCH (22:00)
[2021-02-27] MEDS: HEPARIN NA (PORCINE) 5,000 UNITS/ML 1ML VIAL SQ SCH ×3 (06:37→21:42)
[2021-02-27 06:53] LABS: INR 1.08 (0.83-1.09); PROTHROMBIN TIME (PATIENT) 12.1 SEC (9.7-13.0)
[2021-02-27 07:14] LABS: ALBUMIN 1.9 g/dl (3.4-5.0); BLOOD UREA NITROGEN 8.9 mg/dL (7-18)
[2021-02-27 07:15] LABS: CALCIUM 7.7 mg/dL (8.5-10.1); MAGNESIUM 1.9 mg/dL (1.8-2.4)
[2021-02-27 07:17] LABS: CREATININE 0.8 mg/dL (0.55-1.3); PHOSPHOROUS 3.4 mg/dL (2.5-4.9)
[2021-02-27 07:18] LABS: BILIRUBIN,TOTAL 0.1 mg/dL (0.2-1); TOT PROT 4.5 g/dl (6.4-8.2)
[2021-02-27 07:19] LABS: HEMATOCRIT 26.6 % (35.4-49); MCH 33.3 pg (25.7-33.7); MCHC 33.7 g/dl (32.0-35.9); MEAN CELL VOLUME 98.7 fl (80-96); MEAN PLT VOLUME 7.7 fl (7.5-11.1); PLATELET COUNT 288 10^3/uL (134-434); RDW 15.5 % (11.9-15.9); WHITE BLOOD COUNT 7.1 K/mm3 (4.0-10.0)
[2021-02-27] MEDS ORDERED: AMINO ACIDS/PROTEIN HYDROLYS 30 ML LIQUID.PKT PO SCH (08:00)
[2021-02-27] MEDS ORDERED: PT OWN MED DRAWER 7, Y5N ONE ×3 (08:59→21:24)
[2021-02-27 09:54] LABS: ANISOCYTOSIS 2+; MACROCYTOSIS 0; PLATELET ESTIMATE NORMAL
[2021-02-27] MEDS ORDERED: PANTOPRAZOLE SODIUM 40 MG VIAL IVPUSH SCH (10:00)
[2021-02-27] MEDS ORDERED: MULTIVITAMINS (DAILY MVI) TABLET (FP) PO SCH (10:00)
[2021-02-27] MEDS ORDERED: FENOFIBRIC ACID 45 MG CAP PO SCH (10:00)
[2021-02-27] MEDS ORDERED: LACTOBACILLUS ACIDOPHILUS 1 TABLET PO SCH (10:00)
[2021-02-27] MEDS ORDERED: ASPIRIN 81 MG CHEWABLE TABLETS PO SCH (10:00)
[2021-02-27] MEDS ORDERED: ESCITALOPRAM OXALATE 10 MG TABLET PO SCH (10:00)
[2021-02-27] MEDS ORDERED: CLOPIDOGREL BISULFATE 75 MG TABLET (FP) PO SCH (10:00)
[2021-02-27] MEDS: AMOX TR/POT CLAV 500MG/125MG TABLETS (FP) PO SCH ×2 (10:56→17:53)
[2021-02-27] MEDS: LYTES/YERBA SANTA 60 ML SPRAY MM SCH ×2 (10:57→21:42)
[2021-02-27] MEDS: MIDODRINE HCL 5 MG TABLET PO SCH ×3 (10:57→18:19)
[2021-02-27] MEDS: risperiDONE 1 MG TABLET PO SCH ×2 (10:57→21:43)
[2021-02-27 12:59] VITALS: BMI 24.8
[2021-02-27] MEDS ORDERED: ACETAMINOPHEN 325 MG TABLET (FP) PO PRN (19:43)
[2021-02-27] MEDS ORDERED: ONDANSETRON 4 MG/2 ML VIAL IVPUSH PRN (19:43)
[2021-02-27] MEDS: ROSUVASTATIN CA 10 MG TABLET (FP) PO SCH (21:42)
[2021-02-27] MEDS: SENNOSIDES 8.6MG TABLET (FP) PO SCH (21:43)
[2021-02-28] MEDS: HEPARIN NA (PORCINE) 5,000 UNITS/ML 1ML VIAL SQ SCH ×3 (05:15→21:29)
[2021-02-28] MEDS ORDERED: PT OWN MED DRAWER 7, Y5N ONE ×3 (09:19→17:38)
[2021-02-28] MEDS: PANTOPRAZOLE SODIUM 40 MG VIAL IVPUSH SCH (09:49)
[2021-02-28] MEDS: AMINO ACIDS/PROTEIN HYDROLYS 30 ML LIQUID.PKT PO SCH (09:49)
[2021-02-28] MEDS: AMOX TR/POT CLAV 500MG/125MG TABLETS (FP) PO SCH ×2 (09:50→18:30)
[2021-02-28] MEDS: FENOFIBRIC ACID 45 MG CAP PO SCH (09:50)
[2021-02-28] MEDS: LACTOBACILLUS ACIDOPHILUS 1 TABLET PO SCH (09:52)
[2021-02-28] MEDS: CLOPIDOGREL BISULFATE 75 MG TABLET (FP) PO SCH (09:52)
[2021-02-28] MEDS: risperiDONE 1 MG TABLET PO SCH ×2 (09:53→21:30)
[2021-02-28] MEDS: MULTIVITAMINS (DAILY MVI) TABLET (FP) PO SCH (09:53)
[2021-02-28] MEDS: ESCITALOPRAM OXALATE 10 MG TABLET PO SCH (09:53)
[2021-02-28] MEDS: LYTES/YERBA SANTA 60 ML SPRAY MM SCH ×2 (09:54→21:32)
[2021-02-28] MEDS: MIDODRINE HCL 5 MG TABLET PO SCH ×3 (09:54→18:46)
[2021-02-28] MEDS: ASPIRIN 81 MG CHEWABLE TABLETS PO SCH (09:55)
[2021-02-28 10:00] LABS: HEMATOCRIT 26.6 % (35.4-49); MCH 33.6 pg (25.7-33.7); MCHC 33.9 g/dl (32.0-35.9); MEAN CELL VOLUME 99.3 fl (80-96); MEAN PLT VOLUME 7.3 fl (7.5-11.1); PLATELET COUNT 395 10^3/uL (134-434); RBC 2.68 M/mm3 (4.00-5.60); RDW 15.5 % (11.9-15.9)
[2021-02-28 10:21] LABS: CALCIUM 8.7 mg/dL (8.5-10.1)
[2021-02-28 10:23] LABS: MAGNESIUM 1.4 mg/dL (1.8-2.4)
[2021-02-28 10:25] LABS: CREATININE 0.8 mg/dL (0.55-1.3); PHOSPHOROUS 2.6 mg/dL (2.5-4.9)
[2021-02-28] MEDS ORDERED: MAGNESIUM SULF 50% (8.12 MEQ/2 ML-1 GM VIAL) IVPB ONE (15:04)
[2021-02-28] MEDS: ROSUVASTATIN CA 10 MG TABLET (FP) PO SCH (21:29)
[2021-02-28] MEDS: SENNOSIDES 8.6MG TABLET (FP) PO SCH (21:30)
[2021-03-01] MEDS: HEPARIN NA (PORCINE) 5,000 UNITS/ML 1ML VIAL SQ SCH ×3 (05:15→21:50)
[2021-03-01 08:37] LABS: BASO % 0.3 % (0-2.0); EOS % 2.7 % (0-4.5); HEMATOCRIT 25.1 % (35.4-49); HEMOGLOBIN 8.8 GM/dL (11.7-16.9); LYMPH % 16.2 % (8-40); MEAN CELL VOLUME 97.1 fl (80-96); MEAN PLT VOLUME 6.8 fl (7.5-11.1); MONO % 8.8 % (3.8-10.2); PLATELET COUNT 404 10^3/uL (134-434); RBC 2.58 M/mm3 (4.00-5.60); RDW 15.4 % (11.9-15.9); WHITE BLOOD COUNT 7.4 K/mm3 (4.0-10.0)
[2021-03-01 09:00] LABS: BLOOD UREA NITROGEN 6.5 mg/dL (7-18)
[2021-03-01 09:01] LABS: ALBUMIN 2.1 g/dl (3.4-5.0); MAGNESIUM 1.6 mg/dL (1.8-2.4)
[2021-03-01 09:03] LABS: CREATININE 0.9 mg/dL (0.55-1.3)
[2021-03-01 09:05] LABS: PHOSPHOROUS 2.8 mg/dL (2.5-4.9)
[2021-03-01 09:06] LABS: BILIRUBIN,TOTAL 0.4 mg/dL (0.2-1)
[2021-03-01] MEDS: AMOX TR/POT CLAV 500MG/125MG TABLETS (FP) PO SCH ×2 (09:20→17:01)
[2021-03-01] MEDS: AMINO ACIDS/PROTEIN HYDROLYS 30 ML LIQUID.PKT PO SCH (09:20)
[2021-03-01] MEDS: LACTOBACILLUS ACIDOPHILUS 1 TABLET PO SCH (09:21)
[2021-03-01] MEDS: MIDODRINE HCL 5 MG TABLET PO SCH ×3 (09:21→17:01)
[2021-03-01] MEDS: CLOPIDOGREL BISULFATE 75 MG TABLET (FP) PO SCH (09:21)
[2021-03-01] MEDS: ESCITALOPRAM OXALATE 10 MG TABLET PO SCH (09:21)
[2021-03-01] MEDS: ASPIRIN 81 MG CHEWABLE TABLETS PO SCH (09:21)
[2021-03-01] MEDS: MULTIVITAMINS (DAILY MVI) TABLET (FP) PO SCH (09:21)
[2021-03-01] MEDS: PANTOPRAZOLE SODIUM 40 MG VIAL IVPUSH SCH (09:21)
[2021-03-01] MEDS: LYTES/YERBA SANTA 60 ML SPRAY MM SCH ×2 (09:23→21:47)
[2021-03-01] MEDS: FENOFIBRIC ACID 45 MG CAP PO SCH (12:02)
[2021-03-01] MEDS: risperiDONE 1 MG TABLET PO SCH ×2 (12:02→21:50)
[2021-03-01] MEDS ORDERED: MAGNESIUM SULF 50% (8.12 MEQ/2 ML-1 GM VIAL) IVPB ONE (12:26)
[2021-03-01] MEDS: NYSTATIN POWDER 100,000 UNITS/GM - 15 GM TOPICAL POWDER TP SCH (13:13)
[2021-03-01] MEDS ORDERED: PT OWN MED DRAWER 7, Y5N ONE (21:43)
[2021-03-01] MEDS: ROSUVASTATIN CA 10 MG TABLET (FP) PO SCH (21:47)
[2021-03-01] MEDS: SENNOSIDES 8.6MG TABLET (FP) PO SCH (21:47)
[2021-03-02] MEDS ORDERED: ACETAMINOPHEN 325 MG TABLET (FP) PO PRN (00:32)
[2021-03-02] MEDS ORDERED: ONDANSETRON 4 MG/2 ML VIAL IVPUSH PRN (00:32)
[2021-03-02] MEDS: HEPARIN NA (PORCINE) 5,000 UNITS/ML 1ML VIAL SQ SCH ×3 (06:42→21:54)
[2021-03-02 07:52] LABS: CALCIUM 8.9 mg/dL (8.5-10.1)
[2021-03-02 07:53] LABS: BLOOD UREA NITROGEN 11.6 mg/dL (7-18); MAGNESIUM 1.8 mg/dL (1.8-2.4)
[2021-03-02 07:56] LABS: CREATININE 1.2 mg/dL (0.55-1.3); PHOSPHOROUS 3.3 mg/dL (2.5-4.9)
[2021-03-02 07:57] LABS: BILIRUBIN,TOTAL 0.2 mg/dL (0.2-1); TOT PROT 4.8 g/dl (6.4-8.2)
[2021-03-02] MEDS ORDERED: AMOX TR/POT CLAV 500MG/125MG TABLETS (FP) PO SCH (08:00)
[2021-03-02] MEDS ORDERED: SODIUM ZIRCONIUM CYCLOSILICATE (LOKELMA) 5 GM PACKET PO ONE (09:21)
[2021-03-02 09:28] LABS: BASO % 0.4 % (0-2.0); EOS % 2.7 % (0-4.5); HEMATOCRIT 24.3 % (35.4-49); HEMOGLOBIN 8.5 GM/dL (11.7-16.9); MCH 33.7 pg (25.7-33.7); MEAN CELL VOLUME 96.3 fl (80-96); MEAN PLT VOLUME 6.9 fl (7.5-11.1); NEUT % 68.9 % (42.8-82.8); PLATELET COUNT 429 10^3/uL (134-434); RBC 2.53 M/mm3 (4.00-5.60); RDW 15.2 % (11.9-15.9); WHITE BLOOD COUNT 6.6 K/mm3 (4.0-10.0)
[2021-03-02] MEDS: MIDODRINE HCL 5 MG TABLET PO SCH ×3 (10:15→18:28)
[2021-03-02] MEDS: MULTIVITAMINS (DAILY MVI) TABLET (FP) PO SCH (10:15)
[2021-03-02] MEDS: AMINO ACIDS/PROTEIN HYDROLYS 30 ML LIQUID.PKT PO SCH (10:15)
[2021-03-02] MEDS: PANTOPRAZOLE SODIUM 40 MG VIAL IVPUSH SCH (10:15)
[2021-03-02] MEDS: ASPIRIN 81 MG CHEWABLE TABLETS PO SCH (10:16)
[2021-03-02] MEDS: LACTOBACILLUS ACIDOPHILUS 1 TABLET PO SCH (10:16)
[2021-03-02] MEDS: CLOPIDOGREL BISULFATE 75 MG TABLET (FP) PO SCH (10:16)
[2021-03-02] MEDS: NYSTATIN POWDER 100,000 UNITS/GM - 15 GM TOPICAL POWDER TP SCH ×2 (10:16→21:58)
[2021-03-02] MEDS: FENOFIBRIC ACID 45 MG CAP PO SCH (10:16)
[2021-03-02] MEDS: ESCITALOPRAM OXALATE 10 MG TABLET PO SCH (10:16)
[2021-03-02] MEDS: LYTES/YERBA SANTA 60 ML SPRAY MM SCH ×2 (10:16→21:57)
[2021-03-02] MEDS: risperiDONE 1 MG TABLET PO SCH ×2 (10:17→21:55)
[2021-03-02] MEDS ORDERED: ROSUVASTATIN CA 10 MG TABLET (FP) PO SCH (22:00)
[2021-03-02] MEDS ORDERED: SENNOSIDES 8.6MG TABLET (FP) PO SCH (22:00)
[2021-03-03] MEDS: HEPARIN NA (PORCINE) 5,000 UNITS/ML 1ML VIAL SQ SCH (06:00)
[2021-03-03 08:24] LABS: BASO % 0.8 % (0-2.0); EOS % 2.8 % (0-4.5); HEMATOCRIT 24.8 % (35.4-49); HEMOGLOBIN 8.7 GM/dL (11.7-16.9); LYMPH % 18.8 % (8-40); MCH 34.2 pg (25.7-33.7); MCHC 34.9 g/dl (32.0-35.9); MEAN CELL VOLUME 98.1 fl (80-96); MEAN PLT VOLUME 7.1 fl (7.5-11.1); MONO % 7.3 % (3.8-10.2); NEUT % 70.3 % (42.8-82.8); PLATELET COUNT 458 10^3/uL (134-434); RBC 2.53 M/mm3 (4.00-5.60); RDW 15.7 % (11.9-15.9); WHITE BLOOD COUNT 7.2 K/mm3 (4.0-10.0)
[2021-03-03 08:49] LABS: ALBUMIN 2.2 g/dl (3.4-5.0)
[2021-03-03 08:50] LABS: BLOOD UREA NITROGEN 9.9 mg/dL (7-18); MAGNESIUM 1.5 mg/dL (1.8-2.4)
[2021-03-03 08:51] LABS: CREATININE 0.9 mg/dL (0.55-1.3)
[2021-03-03 08:52] LABS: PHOSPHOROUS 3.4 mg/dL (2.5-4.9)
[2021-03-03 08:53] LABS: BILIRUBIN,TOTAL 0.5 mg/dL (0.2-1); TOT PROT 5.1 g/dl (6.4-8.2)
[2021-03-03] MEDS: PANTOPRAZOLE SODIUM 40 MG VIAL IVPUSH SCH (11:09)
[2021-03-03] MEDS: ESCITALOPRAM OXALATE 10 MG TABLET PO SCH (11:11)
[2021-03-03] MEDS: MULTIVITAMINS (DAILY MVI) TABLET (FP) PO SCH (11:13)
[2021-03-03] MEDS: LACTOBACILLUS ACIDOPHILUS 1 TABLET PO SCH (11:13)
[2021-03-03] MEDS: MIDODRINE HCL 5 MG TABLET PO SCH (11:13)
[2021-03-03] MEDS: ASPIRIN 81 MG CHEWABLE TABLETS PO SCH (11:13)
[2021-03-03] MEDS: CLOPIDOGREL BISULFATE 75 MG TABLET (FP) PO SCH (11:14)
[2021-03-03] MEDS: NYSTATIN POWDER 100,000 UNITS/GM - 15 GM TOPICAL POWDER TP SCH (11:14)
[2021-03-03] MEDS: risperiDONE 1 MG TABLET PO SCH (11:14)
[2021-03-03] MEDS: LYTES/YERBA SANTA 60 ML SPRAY MM SCH (11:14)
[2021-03-03] MEDS: AMINO ACIDS/PROTEIN HYDROLYS 30 ML LIQUID.PKT PO SCH (11:14)
[2021-03-03] MEDS: FENOFIBRIC ACID 45 MG CAP PO SCH (11:15)
[2021-03-03] MEDS ORDERED: MAGNESIUM SULF 50% (8.12 MEQ/2 ML-1 GM VIAL) IVPB ONE (11:17)
[2021-03-03] MEDS ORDERED: MAGNESIUM OXIDE 400 MG TABLET (FP) PO ONE (11:34)
[2021-03-03] MEDS ORDERED: MIDODRINE HCL 5 MG TABLET PO SCH (12:00)
[2021-03-03 14:40] VITALS: BP 116/71; PULSE 84; TEMP 98.9
== END 2021-03-03 15:14 | disposition home health service (06) | DRG 871 ==
LOC: JER 20:46 → JERBED 21:08 → JICU 02-19 03:09 → J7W 02-23 17:08 → JICU 02-26 13:13 → J7W 03-01 02:09
PROVIDERS: ADMIT Internal Medicine Pulmonary Disease; ATTEND Internal Medicine
PROC: 05H633Z Insertion of Infusion Device into Left Subclavian Vein, Percutaneous Approach (ICD-10-PCS; principal; 2021-02-18)
DX: A41.51 Sepsis due to Escherichia coli [E. coli] (principal); R65.21 Severe sepsis with septic shock; E87.2 Acidosis; N17.9 Acute kidney failure, unspecified; K56.7 Ileus, unspecified; I13.0 Hypertensive heart and chronic kidney disease with heart failure and stage 1 through stage 4 chronic kidney disease, or unspecified chronic kidney disease; I50.32 Chronic diastolic (congestive) heart failure; G91.2 (Idiopathic) normal pressure hydrocephalus; M48.56XA Collapsed vertebra, not elsewhere classified, lumbar region, initial encounter for fracture; E27.40 Unspecified adrenocortical insufficiency; K56.609 Unspecified intestinal obstruction, unspecified as to partial versus complete obstruction; I25.5 Ischemic cardiomyopathy; I25.10 Atherosclerotic heart disease of native coronary artery without angina pectoris; I95.9 Hypotension, unspecified; D72.829 Elevated white blood cell count, unspecified; E78.5 Hyperlipidemia, unspecified; J44.9 Chronic obstructive pulmonary disease, unspecified; F41.8 Other specified anxiety disorders; K42.9 Umbilical hernia without obstruction or gangrene; R91.1 Solitary pulmonary nodule; N28.1 Cyst of kidney, acquired; F09 Unspecified mental disorder due to known physiological condition; F20.9 Schizophrenia, unspecified; K21.9 Gastro-esophageal reflux disease without esophagitis; I44.0 Atrioventricular block, first degree; R55 Syncope and collapse; E87.5 Hyperkalemia; E83.52 Hypercalcemia; N18.9 Chronic kidney disease, unspecified; Z95.5 Presence of coronary angioplasty implant and graft
CPT/HCPCS: 36415; 71045-TC-FY; 71250-TC; 74018-TC-FY; 74176-TC; 80048; 80053; 81003; 82272; 82533; 82550; 82607; 82728; 82803; 82962; 83540; 83550; 83605; 83690; 83735; 83880; 84100; 84146; 84484; 85025; 85027; 85045; 85610; 85730; 87040; 87086; 87186; 93005; 93010; 93306-TC; 93880-TC; 93970-TC; 97116-GP; 97162-GP; 99291; 99292; C9803; J1644; J2794; U0003; U0005